=== PATIENT | female | born 1960 | race Caucasian/White ===

== ENCOUNTER 2020-03-09 21:02 | Emergency (ER) | payer BC, SELFPAY ==
[2020-03-09 21:10] VITALS: BP 141/83; PULSE 108; RESP 50; TEMP 36.6; O2SAT 97; BMI 16.2
[2020-03-09 22:04] VITALS: BP 112/64; PULSE 96; RESP 19; TEMP 37.2; O2SAT 97
--- NOTE | 2020-03-09 22:28 | ED.ABDPAIN ---
HPI - Abdominal Pain General Chief Complaint: Abdominal Pain Stated Complaint: abdominal pain Time Seen by Provider: 03/09/20 21:44 Source: patient Mode of arrival: ambulatory History of Present Illness HPI narrative: 59 year old female with left lower quadrant abdominal pain approximately 4-5 days. Symptoms worsening today described as sharp possible radiation to rectum. 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 Denies fevers or chills. Had a normal bowel movement within the past day. No blood in stool mild nausea without vomiting MD elicited complaint: abdominal pain Pertinent past history: diverticulitis Pain Consistency: constant Location: LLQ Severity: mild Quality: sharp Related Data Previous Rx's Medication Instructions Recorded amoxicillin-pot clavulanate 15 ml PO BID 7 Days #210 ml 03/10/20 [Augmentin] ondansetron 4 mg PO Q8H PRN 5 Days #15 tab 03/10/20 tramadol 50 mg PO BID PRN #14 tab 03/10/20 Allergies Allergy/AdvReac Type Severity Reaction Status Date / Time gluten [Gluten] Allergy Severe PT HAS Verified 03/09/20 21:09 CELIAC DISEASE Sulfa (Sulfonamide Allergy Severe LUPUS-LIKE Verified 03/09/20 22:44 Antibiotics) benztropine [Cogentin] Allergy Unknown Rash Verified 03/09/20 21:09 ciprofloxacin [From Cipro] Allergy Unknown TENDONOPATH Verified 03/09/20 22:44 Y/NEUROPATH Y nitrofurantoin [Macrodantin] Allergy Unknown Rash Verified 03/09/20 21:09 promethazine Allergy Unknown Unknown Verified 03/09/20 21:09 From Cipro Allergy Severe TENDONOPATH Uncoded 02/15/20 16:29 Y/NEUROPATH Y From Compazine Allergy Severe DYSTONIA Uncoded 02/15/20 16:29 From Macrodantin Allergy Severe drug Uncoded 02/15/20 16:29 induced hepatitis bees Allergy Unknown Shortness Uncoded 03/09/20 21:09 of Breath gluten Allergy Unknown Diarrhea Uncoded 03/09/20 21:09 Mandelamine Allergy Unknown Rash Uncoded 03/09/20 21:09 QUINOLONES Allergy Unknown Unknown Uncoded 03/09/20 21:09 Review of Systems Review of Systems Yes all other systems are reviewed and are negative Constitutional: Reports as per HPI Eyes: Reports as per HPI Reports system reviewed and no additional complaints, except as documented Cardiovascular: Reports as per HPI and Denies chest pain Respiratory: Reports as per HPI and Denies pain with cough Gastrointestinal: Reports as per HPI, Denies change in stool character, Denies constipation and Reports GI cramping Genitourinary: Reports as per HPI and Denies hematuria Musculoskeletal: Reports no additional musculoskeletal complaints Physical Exam Vital Signs: Vital Signs: Vital Signs Temp Pulse Resp BP Pulse Ox 03/10/20 00:32 87 16 129/76 03/09/20 22:04 98.9 F 96 19 112/64 97 03/09/20 21:10 97.9 F 108 H 50 H 141/83 H 97 Body Mass Index 16.2 vital signs reviewed Appearance: Alert. Oriented X3. No acute distress. Eyes: Pupils equal, round and reactive to light. ENT: Pharynx normal. Neck: Normal inspection. Neck supple. No lymph nodes noted. No crepitus CVS: Normal heart rate and rhythm. Pulses normal. Normal S1 and S2 Respiratory: No respiratory distress. Breath sounds normal. No Wheezing. No rales Abdomen: Soft and mild tenderness to left lower quadrant. No rigidity. No distention. good BS x4 Skin: Skin warm and dry. Normal skin color. Normal skin turgor. Extremities: No lower extremity edema. Neurovascular intact to all extremities. No Lacerations. No Rash Neuro: Oriented X 3. No motor deficit. No sensory deficit. Moving all extermities. No slurred speech. Course Course Course Narrative: differential diagnosis includes diverticulitis, perforation, obstruction, rectal infection MDM - Abdominal Pain MDM Narrative Medical decision making narrative: 59-year-old female diagnosed on CT scan with localize diverticulitis. Patient does not meet sepsis criteria. Tolerating p.o. intake will discharge home Differential Diagnosis Differential diagnosis: Likely abdominal pain, acute appendicitis, bowel perforation and gastritis Lab Data Attestation: I reviewed the patient's lab results. Result diagrams: 03/09/20 22:39 03/09/20 22:39 Labs: Lab Results 03/09/20 03/09/20 03/10/20 Range/Units 22:39 22:39 00:15 WBC 9.9 (4.8-10.8) X10*3/uL RBC 4.08 L (4.20-5.50) X10*6/uL Hgb 11.8 L (12.0-16.0) g/dl Hct 36.4 L (37-47) % MCV 89.2 (80-98) fL MCH 28.9 (27.0-33.0) pg MCHC 32.4 (31.0-35.0) g/dl RDW 12.1 (11.0-16.0) % Plt Count 187 (160-400) X10*3/uL MPV 10.3 (9.4-12.3) fL Immature Gran % (Auto) 0.3 (0.0-0.4) % Neut % (Auto) 80.5 H (45-73) % Lymph % (Auto) 9.8 L (20-40) % [place] % (Auto) 8.9 (2-11) % Eos % (Auto) 0.2 (0-4) % Baso % (Auto) 0.3 (0-2) % Lymph # (Auto) 1.0 L (1.2-4.9) X10*3/uL [place] # (Auto) 0.9 (0.1-1.2) X10*3/uL Eos # (Auto) 0.0 (0.0-0.4) X10*3/uL Baso # (Auto) 0.0 (0.0-0.2) X10*3/uL Abs Immat Gran (auto) 0.03 (0.00-0.03) X10*3/uL Absolute Neuts (auto) 7.9 (2.0-8.3) X10*3/uL Absolute Nucleated RBC 0.000 (0.0-0.012) X10*3/uL Nucleated RBC % (auto) 0.0 (0.0-0.2) /100WBC Sodium 140 (135-145) mmol/L Potassium 4.1 (3.3-5.1) mmol/l Chloride 103 (96-108) mmol/L Carbon Dioxide 26 (22-29) mmol/L Anion Gap 15 (12-20) BUN 17 H (9-16) mg/dL Creatinine 0.73 (0.5-1.4) mg/dL Estim Creat Clear Calc 50.4 Estimated GFR > 60 Random Glucose 97 (60-115) mg/dL Calcium 9.2 (8.4-10.2) mg/dL Total Bilirubin 0.5 (0.0-1.0) mg/dL Direct Bilirubin 0.2 (0.0-0.5) mg/dL AST 16 (5-31) U/L ALT 8 (0-31) U/L Alkaline Phosphatase 53 (39-117) U/L Total Protein 7.0 (6.5-8.0) g/dL Albumin 4.6 (3.5-5.0) g/dL Lipase 16 (8-78) U/L Urine Color YELLOW Urine Appearance CLEAR Urine pH 6.0 (5.0-8.0) Ur Specific [place] 1.025 (1.005-1.025) Urine Protein NEG (NEG-TRACE) MG/DL Urine Glucose (UA) NEG (NEG) MG/DL Urine Ketones 15 (NEG) MG/DL Urine Blood NEG (NEG) Urine Nitrite NEG (NEG) Ur Leukocyte Esterase NEG (NEG) Discharge Plan Discharge Clinical Impression: Diverticulitis Patient Disposition: Home, Self-Care Instructions: Diverticulitis (ED) Additional Instructions: Thank you for visiting the emergency department today. If your symptoms worsen or do not resolve completely please return to the emergency department immediately or call 911. if he have any questions please call your primary care physician Prescriptions: New tramadol 50 mg tablet 50 mg PO BID PRN (Reason: pain) Qty: 14 RF: 0 ondansetron 4 mg tablet,disintegrating 4 mg PO Q8H PRN (Reason: nausea and vomiting) 5 Days Qty: 15 RF: 0 amoxicillin-pot clavulanate [Augmentin] 250-62.5 mg/5 mL suspension for reconstitution 15 ml PO BID 7 Days Qty: 210 RF: 0 PMFSH Past Medical History Medical History Asthma Celiac sprue Diverticulosis Kidney stone Neuropathy Family History Family History (Updated 03/09/20 @ 22:31 by Aaron Bay DO) Other Family history non-contributory Social History Social History Alcohol intake: never Smoking Status: Never smoker Use of substances other than those prescribed or required for medical reasons: No Advance Directives: No Advance Directives Information Provided: Yes
[2020-03-09] MEDS: 0.9 % Sodium Chloride 1,000 ML 999 ML IVCONT (22:47)
[2020-03-09] MEDS: Ketorolac Tromethamine 30 MG/ML VIAL IVPUSH (22:48)
[2020-03-09] MEDS: ondansetron HCL 4 MG/2 ML VIAL IVPUSH (22:48)
[2020-03-09 22:59] LABS: MANUAL DIFF FLAG NO
[2020-03-09 23:00] LABS: Basophils Percent Auto 0.3 % (0-2); Eosinophils Percent Auto 0.2 % (0-4); Hematocrit 36.4 % (37-47); Hemoglobin 11.8 g/dl (12.0-16.0); Imm Gran Abs Auto 0.03 X10*3/uL (0.00-0.03); Imm Gran Pct Auto 0.3 % (0.0-0.4); Lymphocytes Percent Auto 9.8 % (20-40); Mean Corpuscular HGB Conc 32.4 g/dl (31.0-35.0); Mean Corpuscular Hemoglobin 28.9 pg (27.0-33.0); Mean Corpuscular Volume 89.2 fL (80-98); Mean Platelet Volume 10.3 fL (9.4-12.3); Monocytes Absolute Auto 0.9 X10*3/uL (0.1-1.2); Monocytes Percent Auto 8.9 % (2-11); Neutrophils Absolute Auto 7.9 X10*3/uL (2.0-8.3); Neutrophils Percent Auto 80.5 % (45-73); Platelet Count 187 X10*3/uL (160-400); Red Blood Count 4.08 X10*6/uL (4.20-5.50); Red Cell Distribution Width 12.1 % (11.0-16.0); White Blood Count 9.9 X10*3/uL (4.8-10.8)
[2020-03-09 23:23] LABS: Alanine Aminotransferase 8 U/L (0-31); Albumin Level 4.6 g/dL (3.5-5.0); Alkaline Phosphatase 53 U/L (39-117); Anion Gap 15 (12-20); Aspartate Amino Transferase 16 U/L (5-31); Bilirubin Direct 0.2 mg/dL (0.0-0.5); Bilirubin Total 0.5 mg/dL (0.0-1.0); Blood Urea Nitrogen 17 mg/dL (9-16); Calcium 9.2 mg/dL (8.4-10.2); Carbon Dioxide 26 mmol/L (22-29); Chloride 103 mmol/L (96-108); Creatinine Clr Calc Pharmacy 50.4; Estimated Glomerular Filt Rate > 60; Glucose Random 97 mg/dL (60-115); Lipase 16 U/L (8-78); Potassium 4.1 mmol/l (3.3-5.1); Sodium 140 mmol/L (135-145)
--- NOTE | 2020-03-09 23:39 | PC.NURSE ---
Report taken from oLre, this RN resuming care. Plan to obtain UA and CT. Continue to monitor.
--- NOTE | 2020-03-10 00:17 | PC.NURSE ---
Urine sample obtained and sent. Pt ambulating to the bathroom with a joseph/steady gait. Pt requesting Morphine dose changed to 1-2 mg. Provider aware.
[2020-03-10] MEDS: ondansetron HCL 4 MG/2 ML VIAL IVPUSH (00:28)
[2020-03-10] MEDS: Morphine Sulfate 2 MG/ML CARTRIDGE IVPUSH (00:28)
--- NOTE | 2020-03-10 00:30 | CT_ITS ---
EXAMINATION: CT ABDOMEN AND PELVIS WITHOUT CONTRAST CLINICAL INFORMATION: Left lower quadrant pain. Rectal pain. COMPARISON: 07/22/2019 TECHNIQUE: Multidetector volumetric images were obtained from the superior aspect of the liver through the pubic symphysis without intravenous contrast. Sagittal and coronal reformatted images were obtained on the technologist's workstation. Oral contrast: Yes This CT examination was performed using dose optimization techniques as appropriate, variously including the following: *Automated exposure control *Adjustment of mA and/or kV according to patient size (this includes techniques or standardized protocols for targeted exams where dose is matched to indication/reason for exam; i.e. extremities or head) *Use of iterative reconstruction technique DLP: 357 mGy-cm FINDINGS: LUNG BASES: The visualized lung bases are unremarkable. LIVER, GALLBLADDER, AND BILIARY TREE: The liver is normal in size, shape, and attenuation. 0.9 cm cyst in the right lobe of the liver. No focal hepatic lesion or biliary ductal dilatation is present. The gallbladder is unremarkable with no evidence of radiopaque gallstones, gallbladder wall thickening, or obvious pericholecystic inflammatory changes. PANCREAS: Unremarkable. SPLEEN: Unremarkable. ADRENAL GLANDS: Unremarkable. KIDNEYS AND URETERS: The kidneys are normal in size, shape, and attenuation. No hydronephrosis, hydroureter, or calculi seen. No perinephric stranding. BLADDER: Unremarkable. GASTROINTESTINAL TRACT: The stomach is unremarkable. The small bowel is normal in caliber. There is no obstruction. Normal appendix. There is diffuse colonic diverticulosis. Mild wall thickening and inflammation of the sigmoid colon, suggesting mild diverticulitis. No free air or fluid collection. ABDOMINAL WALL: No significant hernia is appreciated. LYMPH NODES: Normal. VASCULAR: Unremarkable. PELVIC VISCERA: The uterus and adnexa are unremarkable. OSSEOUS STRUCTURES: No acute or suspicious osseous abnormality. IMPRESSION: Mild sigmoid diverticulitis. No free air or fluid collection.
[2020-03-10 00:32] VITALS: BP 129/76; PULSE 87; RESP 16
[2020-03-10 00:33] LABS: Glucose Urine UA NEG (NEG); Leukocyte Esterase Urine NEG (NEG); Nitrite Urine NEG (NEG); Specific Gravity - Urine 1.025 (1.005-1.025); Urine Blood NEG (NEG); Urine Ketones 15 MG/DL (NEG); Urine Protein NEG (NEG-TRACE)
--- NOTE | 2020-03-10 00:34 | PC.NURSE ---
Pt medicated per EMAR. VSS, awaiting CT.
[2020-03-10 00:36] LABS: Appearance Urine CLEAR; Color Urine YELLOW; UACC Culture Trigger NO
--- NOTE | 2020-03-10 01:00 | PC.NURSE ---
Pt assisted to the bathroom multiple times, pt reports having to urinate but states she feels unable to empty her bladder completely. Bedside bladder scan revealing 361 ml of urine. Pt again requesting to use the bathroom. aware.
--- NOTE | 2020-03-10 01:22 | PC.NURSE ---
Pt returns from CT, resting in bed, awaiting results. Continue to monitor.
--- NOTE | 2020-03-10 01:57 | PC.NURSE ---
MD at bedside discussing CT results and plan of care.
[2020-03-10] MEDS: Morphine Sulfate 2 MG/ML CARTRIDGE 1 MG IVPUSH (02:24)
[2020-03-10 02:34] VITALS: BP 99/63; PULSE 74; RESP 16
--- NOTE | 2020-03-10 02:46 | PC.NURSE ---
Pt medicated per EMAR. IV removed. VSS. Pt provided with DC paperwork.
== END 2020-03-10 02:47 | disposition home or self-care (01) ==
PROVIDERS: Emergency Provider Emergency Medicine
DX: K57.32 Diverticulitis of large intestine without perforation or abscess without bleeding (principal); R10.32 Left lower quadrant pain; Z79.899 Other long term (current) drug therapy
CPT/HCPCS: 36415; 74177; 80048; 80076; 81003; 83690; 85025; 96361; 96374; 96375; 96376; 99284; J1885; J2270; J2405

== ENCOUNTER → 2020-07-10 09:56 | Outpatient (BNVA) | payer BC, SELFPAY | PROVIDERS: PCP Internal Medicine; Visit Provider Internal Medicine Cardiovascular Disease ==

== ENCOUNTER 2020-07-10 11:10 | Emergency (ER) | payer BC, SELFPAY ==
--- NOTE | 2020-07-10 | ECG_ITS ---
Test Reason : SHORTNESS OF BREATH Blood Pressure : / mmHG Vent. Rate : 085 BPM Atrial Rate : 085 BPM P-R Int : 180 ms QRS Dur : 128 ms QT Int : 388 ms P-R-T Axes : 081 -58 093 degrees QTc Int : 461 ms Normal sinus rhythm Left axis deviation Non-specific intra-ventricular conduction block Cannot rule out Anteroseptal infarct , age undetermined Abnormal ECG When compared with ECG of 22-JUL-2019 09:01, QRS duration has increased T wave amplitude has increased in Inferior leads Referred By: Nilesh Rivera Electronically Signed By:JENNIFER DA SILVA
--- NOTE | ~2020-07-10 | XR_ITS ---
EXAMINATION: XR CHEST CLINICAL INFORMATION: Chest pain, shortness of breath COMPARISON: Chest radiographs 01/25/2019, 09/11/2018 TECHNIQUE: Upright portable AP view of the chest was obtained. FINDINGS: There is mild hyperinflation similar to prior exams. There is no airspace consolidation or groundglass opacity. No pneumothorax or pleural reaction. The costophrenic sulci are clear. The heart is normal in size. The vascularity is normal. The hilar and mediastinal contours are normal. No acute bony abnormality. XR/XR chest 1V IMPRESSION: Unremarkable examination.
[2020-07-10 11:26] VITALS: BP 113/70; PULSE 89; RESP 18; TEMP 36.9; O2SAT 99; BMI 18.8
--- NOTE | 2020-07-10 11:40 | PC.NURSE ---
patient a&ox3, satellite project site monitor nsr 80s-90s, vss, patient talking in full sentences no dyspnea noted upon speaking, provider at bedside, will continue to monitor.
--- NOTE | 2020-07-10 11:49 | P.CONCA_ITS ---
History of Present Illness History of Present Illness Date of Service: 07/10/20 Requesting physician: Beverly Montes Consult reason: other (ACS) Chief complaint: ABNORMAL EKG Narrative: Thank you for asking us to see Ruby in cardiology consult today for acute coronary syndrome. She is a pleasant 59-year-old woman who I saw her this morning in the office cause of recent onset exertional symptoms. Patient has prior history of acid reflux disease and question connective tissue disease unclear and mild hyperlipidemia untreated but no prior vascular events. Her last few months she has been noticing exertional shortness of breath as well as fatigue. She intermittently gets symptoms of heart vázquez intermittently and and did not pay much attention to it. 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 She initially start that this was related to acid reflux disease and/or hiatal hernia. Symptoms then subsided few minutes and she went on to work that day. She did call her primary care physician and was advised to continue to watch her symptoms. She continues to have since then exertional fatigue and shortness of breath. She came in for evaluation today. EKG performed in the office shows new ST depression T-wave inversion in inferior leads. She was therefore referred to the emergency room due to recent symptoms and EKG changes. Concern is for acute coronary syndrome/unstable angina. She is not having any symptoms at rest. She has not had any palpitations, lightheadedness, syncope. Only medicine she takes currently is vitamin D3 Review of Systems Constitutional: Constitutional: Denies anorexia, Denies body ache(s), Denies chills, Denies fatigue, Denies fever(s) and Reports weight loss Eyes: Eyes: Reports no additional eye complaints ENT: Reports system reviewed and no additional complaints, except as documented Cardiovascular: Cardiovascular: Reports chest pain with activity, Denies syncope, Denies rapid heart rate, Denies leg edema, Denies lightheadedness, Denies Loss of Consciousness, Reports radiating jaw, neck or arm pain, Denies palpitations, Reports dyspnea on exertion and Denies orthopnea Respiratory: Respiratory: Denies cough, Denies excessive phlegm production and Reports dyspnea on exertion Gastrointestinal: Gastrointestinal: Reports other (Acid reflux symptoms) Genitourinary: Genitourinary: Reports no additional female genitourinary complaints Neurologic: Reports system reviewed and no additional complaints, except as documented and Denies syncope Psychiatric: Psychiatric: Reports no additional psychiatric complaints Endocrine: Endocrine: Reports no additional endocrine complaints, Denies fatigue and Denies palpitations Hematologic/Lymphatic: Hematologic/Lymphatic: Reports no additional hematologic/lymphatic complaints Allergic/Immunologic: Allergic/Immunologic: Reports no additional allergic/immunologic complaints [facility] Past Medical History Medical History Asthma Celiac sprue Diverticulosis Kidney stone Neuropathy Family History Family History Other Family history non-contributory Surgical History Surgical History Hx of excision of mass (~1999) Social History Social History Alcohol intake: never Smoking Status: Never smoker Use of substances other than those prescribed or required for medical reasons: No Advance Directives: No Advance Directives Information Provided: No Meds Allergies Allergy/AdvReac Type Severity Reaction Status Date / Time gluten [Gluten] Allergy Severe PT HAS Verified 07/10/20 10:25 CELIAC DISEASE Sulfa (Sulfonamide Allergy Severe LUPUS-LIKE Verified 07/10/20 10:25 Antibiotics) benztropine [Cogentin] Allergy Intermediate Rash Verified 07/10/20 11:25 ciprofloxacin [From Cipro] Allergy Intermediate TENDONOPATH Verified 07/10/20 11:25 Y/NEUROPATH Y shellfish derived Allergy Intermediate Hives Verified 07/10/20 11:25 promethazine Allergy Unknown Unknown Verified 07/10/20 10:25 Mandelamine Allergy Intermediate Rash Uncoded 07/10/20 11:25 QUINOLONES Allergy Intermediate Unknown Uncoded 07/10/20 11:25 Home Medications Medication Instructions Recorded Confirmed Last Taken Type cholecalciferol (vitamin D3) 50 50 mcg PO DAILY 07/10/20 Unknown History mcg (2,000 unit) capsule Physical Exam Vital Signs: Vital Signs: Last Vital Signs Temp 98.5 F 07/10/20 11:26 Pulse 89 07/10/20 11:26 Resp 18 07/10/20 11:26 BP 113/70 02/10/21 11:26 Pulse Ox 99 07/10/20 11:26 Body Mass Index 18.8 Const: General: cooperative, comfortable and alert Nutritional Appearance: underweight Orientation/consciousness: patient oriented x3 Limitations: no limitations HENMT: Head: Yes normocephalic and Yes atraumatic Neck: Neck: Yes trachea midline, Yes supple and Yes no JVD Chest: Chest palpation & inspection: normal inspection of the chest Resp: Effort & Inspection: normal respiratory effort Auscultation: clear to auscultation bilaterally Cardio: Jugular venous distension: no JVD Palpation: normal PMI Rate: regular rate Rhythm: regular rhythm Heart sounds: S1 normal heart sound present and S2 normal heart sound present GI: Auscultation: normal bowel sounds Skin: General skin exam: no rashes or lesions noted Neuro: General: patient oriented x3 and no focal motor deficits Extrem: General: Yes no clubbing, cyanosis or edema Psych: Appearance: grossly normal Results ECG Attestation: I personally reviewed and interpreted this ECG as follows: ECG interpretation date: 07/10/20 Interpretation: EKG shows normal sinus rhythm with QS pattern in lead V1 V2 suggestive of septal infarct with ST depression and T-wave inversion in lead 2 3 and AVF consistent with inferior ischemia Assessment and Plan (1) Acute coronary syndrome: Status: Acute Patient's symptoms as well as EKG changes are highly consistent with acute coronary syndrome/unstable angina. She is not having any symptoms at rest. Refer to emergency room for initiation of treatment with IV heparin, aspirin, statins and metoprolol. Will obtain initial blood work including troponins, CBC, basic metabolic profile. Given recent symptom onset, best approach to treatment would be invasive cardiac catheterization. This was discussed with her. The risks, benefits, alternatives 2nd opinion to this management plan was discussed in details. She understands and agrees. Have contacted [facility] for transfer. Will obtain a baseline echocardiogram to assess for LV systolic function wall motion abnormalities. Further treatment based on the findings of cardiac catheterization. Differential diagnosis include acute plaque rupture, spontaneous coronary artery dissection and less likely coronary vaso spasm. If need be PCI we performed the time of cardiac catheterization. Plan was discussed with her and her Dr. Franks who understand and agree.
--- NOTE | 2020-07-10 11:56 | ECG_ITS ---
Test Reason : REPEAT Blood Pressure : / mmHG Vent. Rate : 079 BPM Atrial Rate : 079 BPM P-R Int : 180 ms QRS Dur : 124 ms QT Int : 396 ms P-R-T Axes : 081 -60 091 degrees QTc Int : 454 ms Normal sinus rhythm with sinus arrhythmia Left axis deviation Septal infarct (cited on or before 10-JUL-2020) Abnormal ECG When compared with ECG of 10-JUL-2020 11:23, No significant change was found Referred By: Nilesh Rivera Electronically Signed By:JENNIFER DA SILVA
--- NOTE | 2020-07-10 11:57 | CA_ITS ---
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 Normal LV systolic and diastolic function with possible inferior wall motion abnormality 2. Normal cardiac valvular Doppler 3. Normal RV systolic pressure 4. No pericardial effusion Findings Left Ventricle Normal left ventricular size, thickness, and systolic function. The visually estimated ejection fraction is between 55-60%. Spectral Doppler is indicative of a normal filling pattern. Wall Motion Rest Echo Findings The basal inferior and mid inferior segments are hypokinetic. All other scored wall segments showed normal motion. Right Ventricle Normal right ventricular cavity size and systolic function. Atria Both atria are normal in size. There is no evidence of interatrial shunt. Aortic Valve The aortic valve structure and function is likely normal. There is no aortic valve stenosis. There is no aortic valve regurgitation. Mitral Valve Likely normal mitral valve structure and function. There is trace mitral valve regurgitation. There is no mitral valve stenosis. Pulmonic Valve The pulmonic valve was not well visualized. Tricuspid Valve Likely normal tricuspid valve structure and function. There is trace tricuspid valve regurgitation. The right ventricular systolic pressure is normal. The right ventricular systolic pressure is 20 mmHg. Normal right atrial pressure. There is no evidence of pulmonary hypertension. Great Vessels All visible segments of the aorta are normal in size. The pulmonary artery was not well visualized. Venous The inferior vena cava is normal in size and collapses greater than 50% with inspiration. Pericardium/Pleural There is no evidence of pericardial effusion. Prior Study Comparison No prior study available for comparison. Measurements 2D Linear Measurements IVSd: 0.84 0.6-0.9/0.6-1.0 cm LVIDd: 3.56 3.9-5.3/4.2-5.9 cm LVIDd Index: 2.52 2.4-3.2/2.2-3.1 cm/m2 LVIDs: 2.26 2.0-3.6 cm LVPWd: 0.77 0.7-1.1 cm Ao Root: 3.10 2.1-3.5 cm LA Diam: 2.20 2.7-3.8/3.0-4.0 cm LAIDs Index: 1.56 1.5-2.3 cm/m2 LV Mass: 96.71 67-162/88-224 g LV Mass Index: 68.59 43-95/49-115 g/m2 LVOT Diam: 2.00 3.0+(-)1.3 cm 2D Systolic Function EF 4C: 61.40 >55% EF 2C: 58.50 >55% EF BiP: 59.80 >55% Mitral Valve MV Pk E: 0.61 MV PK A: 0.54 MV Decel Time: 183.00 E/A: 1.10 E'Lateral: 8.03 E'Medial: 6.67 E/E' Med: 9.10 E/E' Lat: 7.50 PHT: 54.00 MVA PHT: 4.07 Decel [place]: 3.31 Aortic Valve AoV Pk Wade: 1.03 AoV Mn Wade: 0.64 AoV VTI: 0.22 AoV Pk Grad: 4.00 Aov Mn Grad: 2.00 CHRISTINE Cont.VTI: 2.34 LVOT LVOT Pk Wade: 0.70 LVOT Mn Wade: 0.47 LVOT VTI: 0.16 LVOT Pk Grad: 2.00 LVOT Mn Grad: 1.00 LVOT Diam: 2.00 LVOT Area: 3.14 Diastolic Function MV Pk E: 0.61 MV Pk A: 0.54 E/A: 1.10 E'Medial: 6.67 E/E' Med: 9.10 E' Laterial: 8.03 E/E' Lat: 7.50 Tricuspid Valve TR Pk Wade: 2.07 TR Pk Grad: 17.00 RA Press: 3.00 RVSP: 20.00 Great Vessels Aorta Ao Root-2D: 3.10 2.0-3.7 cm Pulmonary Valve PV Pk Wade: 0.73 Peak PV Grad: 2.00 Updated in Other Vendor System with Status of Final Jero Espinosa MD electronically signed on 07/10/2020 2:27:07 PM with status of Final
--- NOTE | 2020-07-10 12:05 | ED.GENADULT ---
HPI - General Adult General Chief complaint: General Medical Stated complaint: ABNORMAL EKG Time Seen by Provider: 07/10/20 11:17 Source: patient and other (, operations and maintenance supervisor) Mode of arrival: wheelchair Limitations: no limitations History of Present Illness HPI narrative: 59-year-old female who was referred to the emergency department by her operations and maintenance supervisor, Dr. Espinosa for evaluation chest pain, fatigue, shortness of breath and new, acute changes on the patient's EKG. The patient states that she has been feeling fatigued for approximately 2-3 months. She states that she has been having muscle aches and not feeling well. She has also had a 15 lb weight loss. She states that her doctor determined that she had a vitamin B12 and vitamin D3 deficiency. 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 She states that it was about an 8th of a mile walk but she had to turn around and go back to her car and get her lab coat. She states when she got back to the clinic she had a sudden onset of midsternal chest pressure which was moderate to severe in intensity, she felt short of breath and she felt like her heart was beating fast. She states that the symptoms lasted 1-2 minutes but she did not feel back to normal throughout the day. She states that she felt like she had to in ?catch her breath ?. The patient states that since this incident her symptoms of fatigue and dyspnea on exertion have gotten worse. She was seen today by her operations and maintenance supervisor, who did an EKG on the patient. The patient had inferior ST segment depressions in leads 2, 3 and AVF with Q-waves anteriorly. He was concerned that the ST segment depressions were new and he contacted the emergency department the patient was brought to the emergency department for further evaluation. In the emergency department, the patient is pain free. The patient states that she has been experiencing increased ?reflux ?over the past week and states that she has had these sensations since 2018. Related Data Home Medications Medication Instructions Recorded Confirmed cholecalciferol (vitamin D3) 50 50 mcg PO DAILY 07/10/20 mcg (2,000 unit) capsule Allergies Allergy/AdvReac Type Severity Reaction Status Date / Time gluten [Gluten] Allergy Severe PT HAS Verified 07/10/20 10:25 CELIAC DISEASE Sulfa (Sulfonamide Allergy Severe LUPUS-LIKE Verified 07/10/20 10:25 Antibiotics) benztropine [Cogentin] Allergy Intermediate Rash Verified 07/10/20 11:25 ciprofloxacin [From Cipro] Allergy Intermediate TENDONOPATH Verified 07/10/20 11:25 Y/NEUROPATH Y shellfish derived Allergy Intermediate Hives Verified 07/10/20 11:25 promethazine Allergy Unknown Unknown Verified 07/10/20 10:25 Mandelamine Allergy Intermediate Rash Uncoded 07/10/20 11:25 QUINOLONES Allergy Intermediate Unknown Uncoded 07/10/20 11:25 Review of Systems Review of Systems: Yes all other systems are reviewed and are negative Neurologic: Reports Abnormal speech present [facility] Past Medical History Medical History Asthma Celiac sprue Diverticulosis Kidney stone Neuropathy Surgical History Hx of excision of mass (~1999) Family History Family History Other Family history non-contributory Social History Social History Alcohol intake: never Smoking Status: Never smoker Physical Exam Vital Signs: Vital Signs: Last Vital Signs Temp 98.5 F 07/10/20 11:26 Pulse 79 07/10/20 13:03 Resp 18 07/10/20 13:03 BP 101/64 07/10/20 13:03 Pulse Ox 99 07/10/20 13:03 Body Mass Index 18.8 Const: General: cooperative Nutritional Appearance: thin Orientation/consciousness: oriented to person and oriented to place Limitations: no limitations HENMT: Head: Yes normal to inspection, Yes normocephalic and Yes atraumatic Ears: external ears normal General nose exam: Normal external nose present Face and sinus: Yes normal facial exam Mouth: Normal oral and palatal mucosa present Throat: Yes posterior oropharynx normal Eyes: Periorbital: periorbital findings normal Eyelids: Yes eyelids normal Conjunctivae: conjunctivae normal Sclerae: sclerae normal Corneas: corneas normal Pupils: Equal, round and reactive pupils present Direct Ophthalmoscopy: normal light reflex Neck: Neck: Yes full ROM, Yes no lymphadenopathy, Yes no meningeal signs, Yes trachea midline and Yes supple Chest: Chest palpation & inspection: normal inspection of the chest and normal palpation of entire chest wall Resp: Effort & Inspection: normal respiratory effort and able to speak in complete sentences Auscultation: clear to auscultation bilaterally Cardio: Rate: regular rate Rhythm: regular rhythm Heart sounds: S1 normal heart sound present, S2 normal heart sound present and no murmurs GI: Inspection: Yes normal to inspection Palpation (GI): Soft to palpation, nontender, no guarding, not rigid and No hepatosplenomegaly present : General: Yes no CVA tenderness Back/Spine/Pelvis: Back: no CVA tenderness Cervical Spine: normal cervical lordosis Thoracic/Lumbar Spine: thoracic and lumbar spine normal to inspection Skin: Lesions: no lesions Rashes: other (Bruising to lower extremities, no other bruising noted) Wounds: no wounds Neuro: General: oriented to person, oriented to place and no meningeal signs Cranial nerves: Yes Equal, round and reactive pupils present Cognition (Neuro): normal cognition Speech: Abnormal speech present Motor exam (neuro): 5/5 motor strength present throughout Extrem: General: Yes normal to inspection and Yes full ROM Psych: Appearance: well kempt Mental Status: mental status grossly normal Speech and movement: Normal speech and movement present Affect: normal affect Attitude: cooperative Thought process: Normal thought process present Thought content: Normal thought content present Course Course Course Narrative: 59-year-old female who was referred to the emergency department by operations and maintenance supervisor for evaluation of changes in her EKG, dyspnea on exertion, fatigue and chest pain. The patient's EKG here in the emergency department revealed improvement of the ST segment depressions in the inferior leads. Her physical examination was unremarkable. Laboratory evaluation revealed non elevated D-dimer, undetectable high sensitivity troponin I, normal sedimentation rate. CBC revealed slightly low WBC at 3300 and mild anemia with an H&H of 11.8 and 36.5. The patient's COVID-19 test was negative. Chest x-ray was unremarkable. The patient was treated with atorvastatin 80 mg orally, aspirin 324 mg orally, metoprolol 25 mg orally. She was given a heparin bolus and started on a heparin drip as per protocol. The patient will be transferred to [facility] for further evaluation of her abnormal EKG, chest pain and dyspnea. Medical Decision Making Lab Data Result diagrams: 07/10/20 12:10 07/10/20 14:13 Labs: Lab Results 07/10/20 07/10/20 07/10/20 Range/Units 12:10 12:10 12:10 WBC 3.3 L (4.8-10.8) X10*3/uL RBC 4.12 L (4.20-5.50) X10*6/uL Hgb 11.8 L (12.0-16.0) g/dl Hct 36.5 L (37-47) % MCV 88.6 (80-98) fL MCH 28.6 (27.0-33.0) pg MCHC 32.3 (31.0-35.0) g/dl RDW 12.2 (11.0-16.0) % Plt Count 178 (160-400) X10*3/uL MPV 10.5 (9.4-12.3) fL Immature Gran % (Auto) 0.3 (0.0-0.4) % Neut % (Auto) 59.5 (45-73) % Lymph % (Auto) 30.5 (20-40) % [place] % (Auto) 7.6 (2-11) % Eos % (Auto) 0.9 (0-4) % Baso % (Auto) 1.2 (0-2) % Lymph # (Auto) 1.0 L (1.2-4.9) X10*3/uL [place] # (Auto) 0.3 (0.1-1.2) X10*3/uL Eos # (Auto) 0.0 (0.0-0.4) X10*3/uL Baso # (Auto) 0.0 (0.0-0.2) X10*3/uL Abs Immat Gran (auto) 0.01 (0.00-0.03) X10*3/uL Absolute Neuts (auto) 2.0 (2.0-8.3) X10*3/uL Absolute Nucleated RBC 0.000 (0.0-0.012) X10*3/uL Nucleated RBC % (auto) 0.0 (0.0-0.2) /100WBC ESR 12 (0-20) MM/HR PT 12.1 (10.8-13.0) SEC INR 1.0 (0.9-1.1) APTT 32.8 (24.1-38.0) SEC D-Dimer < 200 NG/ML Sodium (135-145) mmol/L Potassium (3.3-5.1) mmol/L Chloride (96-108) mmol/L Carbon Dioxide (22-29) mmol/L Anion Gap (12-20) BUN (9-16) mg/dL Creatinine (0.5-1.4) mg/dL Estim Creat Clear Calc Estimated GFR Random Glucose (60-115) mg/dL Calcium (8.4-10.2) mg/dL Total Bilirubin (0.0-1.0) mg/dL AST (5-31) U/L ALT (0-31) U/L Alkaline Phosphatase (39-117) U/L Troponin I High Sens (<3.5-17.0) ng/L Total Protein (6.5-8.0) g/dL Albumin (3.5-5.0) g/dL COVID-19 ([facility]) (Negative) COVID-19 Clin Com 07/10/20 07/10/20 07/10/20 Range/Units 12:10 12:10 14:13 WBC (4.8-10.8) X10*3/uL RBC (4.20-5.50) X10*6/uL Hgb (12.0-16.0) g/dl Hct (37-47) % MCV (80-98) fL MCH (27.0-33.0) pg MCHC (31.0-35.0) g/dl RDW (11.0-16.0) % Plt Count (160-400) X10*3/uL MPV (9.4-12.3) fL Immature Gran % (Auto) (0.0-0.4) % Neut % (Auto) (45-73) % Lymph % (Auto) (20-40) % [place] % (Auto) (2-11) % Eos % (Auto) (0-4) % Baso % (Auto) (0-2) % Lymph # (Auto) (1.2-4.9) X10*3/uL [place] # (Auto) (0.1-1.2) X10*3/uL Eos # (Auto) (0.0-0.4) X10*3/uL Baso # (Auto) (0.0-0.2) X10*3/uL Abs Immat Gran (auto) (0.00-0.03) X10*3/uL Absolute Neuts (auto) (2.0-8.3) X10*3/uL Absolute Nucleated RBC (0.0-0.012) X10*3/uL Nucleated RBC % (auto) (0.0-0.2) /100WBC ESR (0-20) MM/HR PT (10.8-13.0) SEC INR (0.9-1.1) APTT (24.1-38.0) SEC D-Dimer NG/ML Sodium 139 (135-145) mmol/L Potassium 4.2 (3.3-5.1) mmol/L Chloride 103 (96-108) mmol/L Carbon Dioxide 27 (22-29) mmol/L Anion Gap 13 (12-20) BUN 15 (9-16) mg/dL Creatinine 0.72 (0.5-1.4) mg/dL Estim Creat Clear Calc 59.4 Estimated GFR > 60 Random Glucose 100 (60-115) mg/dL Calcium 9.0 (8.4-10.2) mg/dL Total Bilirubin 0.4 (0.0-1.0) mg/dL AST 16 (5-31) U/L ALT 8 (0-31) U/L Alkaline Phosphatase 46 (39-117) U/L Troponin I High Sens < 3.5 (<3.5-17.0) ng/L Total Protein 6.3 L (6.5-8.0) g/dL Albumin 3.9 (3.5-5.0) g/dL COVID-19 ([facility]) Negative (Negative) COVID-19 Clin Com See Note Discharge Plan Discharge Clinical Impression: Cardiac ischemia, Abnormal EKG, Dyspnea on exertion Patient Disposition: Xfer [facility] Transfer Details: [facility], cardiac care unit Prescriptions: No Action cholecalciferol (vitamin D3) 50 mcg (2,000 unit) capsule 50 mcg PO DAILY RF: 0 Discharge Date/Time: 07/10/20 15:20
[2020-07-10 12:15] LABS: MANUAL DIFF FLAG NO
[2020-07-10 12:18] LABS: Basophils Percent Auto 1.2 % (0-2); Eosinophils Percent Auto 0.9 % (0-4); Hematocrit 36.5 % (37-47); Hemoglobin 11.8 g/dl (12.0-16.0); Imm Gran Abs Auto 0.01 X10*3/uL (0.00-0.03); Imm Gran Pct Auto 0.3 % (0.0-0.4); Lymphocytes Percent Auto 30.5 % (20-40); Mean Corpuscular HGB Conc 32.3 g/dl (31.0-35.0); Mean Corpuscular Hemoglobin 28.6 pg (27.0-33.0); Mean Corpuscular Volume 88.6 fL (80-98); Mean Platelet Volume 10.5 fL (9.4-12.3); Monocytes Absolute Auto 0.3 X10*3/uL (0.1-1.2); Monocytes Percent Auto 7.6 % (2-11); Neutrophils Percent Auto 59.5 % (45-73); Platelet Count 178 X10*3/uL (160-400); Red Blood Count 4.12 X10*6/uL (4.20-5.50); Red Cell Distribution Width 12.2 % (11.0-16.0); White Blood Count 3.3 X10*3/uL (4.8-10.8)
[2020-07-10 12:24] LABS: Prothrombin Time 12.1 SEC (10.8-13.0)
[2020-07-10 12:27] LABS: D Dimer < 200 NG/ML; Partial Thromboplastin Time 32.8 SEC (24.1-38.0)
[2020-07-10 12:31] VITALS: BP 119/69; PULSE 76
[2020-07-10] MEDS: Metoprolol Succinate ER 25 MG TAB.ER.24H PO (12:31)
[2020-07-10] MEDS: Aspirin 81 MG TAB.CHEW 324 MG PO (12:31)
[2020-07-10] MEDS: LORazepam 2 MG/ML VIAL 0.5 MG IVPUSH (12:32)
[2020-07-10 12:38] LABS: COVID-19 Test Negative (Negative); IDNOW Serial# 9DD0AD1C
[2020-07-10] MEDS: Heparin Sodium,Porcine 5,000 UNIT/ML VIAL 2700 UNIT IVPUSH (12:44)
[2020-07-10 12:54] LABS: Troponin-I High Sensitivity < 3.5 ng/L (<3.5-17.0)
[2020-07-10] MEDS: Heparin Sodium,Porcine/1/2NS 25,000 UNIT/250 ML IV.SOLN 5.44 UNIT IVCONT (12:56)
[2020-07-10 13:03] VITALS: BP 101/64; PULSE 79; RESP 18; O2SAT 99
--- NOTE | 2020-07-10 13:03 | PC.NURSE ---
iv inserted, lab drawn, covid swab performed, ekg performed, pt medicated per order, heparin drip started at 12 per order, cxr performed, vss, will continue to monitor.
[2020-07-10 13:18] LABS: Erythrocyte Sedimentation Rate 12 MM/HR (0-20)
--- NOTE | 2020-07-10 13:49 | PC.NURSE ---
PT GOING TO [facility] 7 ROOM 20. RN TO RN [phone].
[2020-07-10] MEDS: Atorvastatin Calcium 80 MG TABLET PO (14:16)
--- NOTE | 2020-07-10 14:17 | PC.NURSE ---
patient a&ox3, night monitor nsr 70s, vss, pt medicated per order
--- NOTE | 2020-07-10 14:28 | PC.NURSE ---
report called to [facility] [phone] to Deedee
[2020-07-10 15:04] LABS: Alanine Aminotransferase 8 U/L (0-31); Albumin Level 3.9 g/dL (3.5-5.0); Alkaline Phosphatase 46 U/L (39-117); Anion Gap 13 (12-20); Aspartate Amino Transferase 16 U/L (5-31); Bilirubin Total 0.4 mg/dL (0.0-1.0); Blood Urea Nitrogen 15 mg/dL (9-16); Carbon Dioxide 27 mmol/L (22-29); Chloride 103 mmol/L (96-108); Creatinine Clr Calc Pharmacy 59.4; Estimated Glomerular Filt Rate > 60; Glucose Random 100 mg/dL (60-115); Potassium 4.2 mmol/L (3.3-5.1); Sodium 139 mmol/L (135-145); Total Protein 6.3 g/dL (6.5-8.0)
[2020-07-10 15:17] LABS: Lipase 109 U/L (8-78)
== END 2020-07-10 15:20 | disposition short-term general hospital (02) ==
PROVIDERS: Emergency Provider Emergency Medicine Emergency Medical Services; PCP Internal Medicine
DX: I24.9 Acute ischemic heart disease, unspecified (principal); R94.31 Abnormal electrocardiogram [ECG] [EKG]; R06.00 Dyspnea, unspecified; J45.909 Unspecified asthma, uncomplicated; Z20.822 Contact with and (suspected) exposure to COVID-19
CPT/HCPCS: 36415; 71045; 80053; 83690; 84484; 85025; 85379; 85610; 85652; 85730; 87635; 93005; 93306; 96365; 96366; 96375; 99285; J2060

== ENCOUNTER → 2020-07-24 14:53 | Outpatient (BNVA) | payer BC, SELFPAY | PROVIDERS: PCP Internal Medicine; Visit Provider Nurse Practitioner Family | DX: R07.89 Other chest pain (principal); R06.02 Shortness of breath; Z98.890 Other specified postprocedural states | CPT/HCPCS: 93005 ==

== ENCOUNTER → 2020-08-12 11:03 | Outpatient (BNVA) | payer BC, SELFPAY | PROVIDERS: PCP Internal Medicine; Visit Provider Nurse Practitioner Family ==

== ENCOUNTER 2021-06-12 11:20 | Outpatient (REF) | payer BC, SELFPAY ==
--- NOTE | ~2021-06-12 | XR_ITS ---
EXAMINATION: AP STANDING VIEW OF BOTH KNEES WITH LATERAL AND PATELLAR VIEWS OF THE LEFT KNEE CLINICAL INFORMATION: Knee pain. COMPARISON: None TECHNIQUE: AP standing views of both knees and sunrise and lateral views of the left knee. FINDINGS: AP standing view of both knees do not demonstrate any acute bony abnormality. Medial and lateral joint space compartments appear maintained. The patellofemoral joint appears unremarkable. No knee effusion is appreciated. XR/XR knee LT 2V IMPRESSION: No significant bony abnormality appreciated. No left knee effusion.
--- NOTE | ~2021-06-12 | XR_ITS ---
EXAMINATION: AP STANDING VIEW OF BOTH KNEES WITH LATERAL AND PATELLAR VIEWS OF THE LEFT KNEE CLINICAL INFORMATION: Knee pain. COMPARISON: None TECHNIQUE: AP standing views of both knees and sunrise and lateral views of the left knee. FINDINGS: AP standing view of both knees do not demonstrate any acute bony abnormality. Medial and lateral joint space compartments appear maintained. The patellofemoral joint appears unremarkable. No knee effusion is appreciated. XR/XR knee standing BI IMPRESSION: No significant bony abnormality appreciated. No left knee effusion.
== END 2021-06-12 11:21 | disposition home or self-care (01) ==
LOC: HO.HOSX 11:20
PROVIDERS: Visit Provider Orthopaedic Surgery
DX: M70.52 Other bursitis of knee, left knee (principal)
CPT/HCPCS: 73560; 73565

== ENCOUNTER → 2021-07-10 15:07 | Outpatient (BNVA) | payer BC, SELFPAY | PROVIDERS: PCP Internal Medicine; Visit Provider Orthopaedic Surgery ==

== ENCOUNTER → 2021-07-31 12:46 | Outpatient (BNVA) | payer BC, SELFPAY | PROVIDERS: PCP Internal Medicine; Visit Provider Orthopaedic Surgery ==

== ENCOUNTER → 2021-08-19 15:31 | Outpatient (BNVA) | payer BC, SELFPAY | PROVIDERS: PCP Internal Medicine; Visit Provider Physician Assistant | DX: M70.52 Other bursitis of knee, left knee (principal) | CPT/HCPCS: 99212 ==

== ENCOUNTER 2021-08-24 22:44 | Emergency (ER) | payer OTHER, BC, SELFPAY ==
[2021-08-24 22:55] VITALS: BP 145/75; PULSE 84; RESP 16; TEMP 36.9; O2SAT 98; BMI 18.8
--- NOTE | 2021-08-24 23:35 | ED_ITS ---
HPI - Extremity Problem General Chief complaint: Extremity Problem Stated complaint: left leg inj, can't feel feet, chest tightness Time Seen by Provider: 08/24/21 23:35 Source: patient Mode of arrival: ambulatory Limitations: no limitations History of Present Illness HPI Narrative: Patient with history of left knee injury 04/20 wearing the brace x-ray negative for any effusion. Patient wearing be a brace is complaining of increasing leg swelling and numbness in both feet for last 3 days notice ankle swelling patient on standing at this time patient has no swelling of the right ankle but slight swelling of the left ankle patient has a cardiac catheterization last year which was negative no cardiac issues Related Data Home Medications Medication Instructions Recorded Confirmed ibuprofen 300 mg tablet 600 mg PO QID 06/12/21 Previous Rx's Medication Instructions Recorded lorazepam 0.5 mg tablet (Ativan) 0.5 mg PO DAILY PRN 1 Days #1 tab 08/19/21 Allergies Allergy/AdvReac Type Severity Reaction Status Date / Time gluten [Gluten] Allergy Severe PT HAS Verified 08/19/21 15:47 CELIAC DISEASE Sulfa (Sulfonamide Allergy Severe LUPUS-LIKE Verified 08/19/21 15:47 Antibiotics) benztropine [Cogentin] Allergy Intermediate Rash Verified 08/19/21 15:47 ciprofloxacin [From Cipro] Allergy Intermediate TENDONOPATH Verified 08/19/21 15:47 Y/NEUROPATH Y shellfish derived Allergy Intermediate Hives Verified 08/19/21 15:47 promethazine Allergy Unknown Unknown Verified 08/19/21 15:47 Mandelamine Allergy Intermediate Rash Uncoded 07/10/20 11:25 QUINOLONES Allergy Intermediate Unknown Uncoded 07/10/20 11:25 Review of Systems Review of Systems: Yes all other systems are reviewed and are negative PMFSH Past Medical History Medical History Asthma Celiac sprue Diverticulosis Kidney stone Neuropathy Surgical History Hx of excision of mass (~1999) S/P cardiac cath (~07/2020) Family History Family History Other Family history non-contributory Social History Social History Alcohol intake: never Advance Directives: No Advance Directives Information Provided: Yes Patient : No 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 Oriented X3. No acute distress. Anxious ENT: Pharynx normal. Oral Mucosa moist Neck: Normal inspection. Neck supple. CVS: Normal heart rate and rhythm. Pulses normal. Respiratory: No respiratory distress. Equal air entry bilateral, no wheezing/rales/rhonchi Abdomen: Soft and nontender. Bowel sounds are present, no mass palpable, Skin: Skin warm and dry. Normal skin color. Normal skin turgor. Extremities: Trace left ankle edema. No calf tenderness Neuro: Oriented X 3. No motor deficit. No sensory deficit.No cerebellar signs , cranial nerves II-XII intact MDM - Extremity (Nontraumatic) MDM Narrative Medical decision making narrative: Patient with nonspecific paresthesia with dependent leg edema with history of left knee injury likely causes dependent pedal edema lab workup is negative will discharge patient home no calf tenderness Patricia sign negative Lab Data Attestation: I reviewed the patient's lab results. Result diagrams: 08/25/21 00:06 08/25/21 00:06 Labs: Lab Results 08/25/21 08/25/21 08/25/21 Range/Units 00:06 00:06 00:06 WBC 4.4 L (4.8-10.8) X10*3/uL RBC 3.79 L (4.20-5.50) X10*6/uL Hgb 10.8 L (12.0-16.0) g/dl Hct 33.6 L (37.0-47.0) % MCV 88.7 (80.0-98.0) fL MCH 28.5 (27.0-33.0) pg MCHC 32.1 (31.0-35.0) g/dl RDW 12.2 (11.0-16.0) % Plt Count 210 (160-400) X10*3/uL MPV 10.2 (9.4-12.3) fL Immature Gran % (Auto) 0.2 (0.0-0.4) % Neut % (Auto) 59.5 (45-73) % Lymph % (Auto) 25.7 (20-40) % [place] % (Auto) 9.1 (2-11) % Eos % (Auto) 4.6 H (0-4) % Baso % (Auto) 0.9 (0-2) % Lymph # (Auto) 1.1 L (1.2-4.9) X10*3/uL [place] # (Auto) 0.4 (0.1-1.2) X10*3/uL Eos # (Auto) 0.2 (0.0-0.4) X10*3/uL Baso # (Auto) 0.0 (0.0-0.2) X10*3/uL Abs Immat Gran (auto) 0.01 (0.00-0.03) X10*3/uL Absolute Neuts (auto) 2.6 (2.0-8.3) x10*3/uL Absolute Nucleated RBC 0.000 (0.0-0.012) X10*3/uL Nucleated RBC % (auto) 0.0 (0.0-0.2) /100WBC Sodium 142 (135-145) mmol/L Potassium 3.8 (3.3-5.1) mmol/L Chloride 105 (96-108) mmol/L Carbon Dioxide 28 (22-29) mmol/L Anion Gap 13 (12-20) BUN 22 H (9-16) mg/dL Creatinine 0.66 (0.5-1.4) mg/dL Estim Creat Clear Calc 64.1 Estimated GFR > 60 Random Glucose 104 (60-115) mg/dL Calcium 9.6 D (8.4-10.2) mg/dL Magnesium 2.4 (1.6-2.6) mg/dL Total Bilirubin 0.2 (0.0-1.0) mg/dL AST 15 (5-31) U/L ALT 10 (0-31) U/L Alkaline Phosphatase 51 (39-117) U/L B-Natriuretic Peptide 20 (<100) pg/mL Total Protein 6.3 L (6.5-8.0) g/dL Albumin 4.0 (3.5-5.0) g/dL Discharge Plan Discharge Clinical Impression: Lower extremity edema, Paresthesia of both feet Patient Disposition: Home, Self-Care Instructions: Paresthesia (ED), Leg Edema (ED) Additional Instructions: Keep your legs elevated Follow-up with your PCP if symptoms persist Prescriptions: No Action ibuprofen 300 mg tablet 600 mg PO QID 0RF lorazepam [Ativan] 0.5 mg tablet 0.5 mg PO DAILY PRN (Reason: anxiety) 1 Days Qty: 1 0RF
[2021-08-25 00:19] LABS: MANUAL DIFF FLAG NO
[2021-08-25 00:20] LABS: Basophils Percent Auto 0.9 % (0-2); Eosinophils Absolute Auto 0.2 X10*3/uL (0.0-0.4); Eosinophils Percent Auto 4.6 % (0-4); Hematocrit 33.6 % (37.0-47.0); Hemoglobin 10.8 g/dl (12.0-16.0); Imm Gran Abs Auto 0.01 X10*3/uL (0.00-0.03); Imm Gran Pct Auto 0.2 % (0.0-0.4); Lymphocytes Absolute Auto 1.1 X10*3/uL (1.2-4.9); Lymphocytes Percent Auto 25.7 % (20-40); Mean Corpuscular HGB Conc 32.1 g/dl (31.0-35.0); Mean Corpuscular Hemoglobin 28.5 pg (27.0-33.0); Mean Corpuscular Volume 88.7 fL (80.0-98.0); Mean Platelet Volume 10.2 fL (9.4-12.3); Monocytes Absolute Auto 0.4 X10*3/uL (0.1-1.2); Monocytes Percent Auto 9.1 % (2-11); Neutrophils Absolute Auto 2.6 x10*3/uL (2.0-8.3); Neutrophils Percent Auto 59.5 % (45-73); Platelet Count 210 X10*3/uL (160-400); Red Blood Count 3.79 X10*6/uL (4.20-5.50); Red Cell Distribution Width 12.2 % (11.0-16.0); White Blood Count 4.4 X10*3/uL (4.8-10.8)
[2021-08-25 00:40] LABS: Alanine Aminotransferase 10 U/L (0-31); Alkaline Phosphatase 51 U/L (39-117); Anion Gap 13 (12-20); Aspartate Amino Transferase 15 U/L (5-31); B Type Natriuretic Peptide 20 pg/mL (<100); Bilirubin Total 0.2 mg/dL (0.0-1.0); Blood Urea Nitrogen 22 mg/dL (9-16); Calcium 9.6 mg/dL (8.4-10.2); Carbon Dioxide 28 mmol/L (22-29); Chloride 105 mmol/L (96-108); Creatinine Clr Calc Pharmacy 64.1; Estimated Glomerular Filt Rate > 60; Glucose Random 104 mg/dL (60-115); Magnesium 2.4 mg/dL (1.6-2.6); Potassium 3.8 mmol/L (3.3-5.1); Sodium 142 mmol/L (135-145); Total Protein 6.3 g/dL (6.5-8.0)
== END 2021-08-25 01:34 | disposition home or self-care (01) ==
PROVIDERS: Emergency Provider Internal Medicine
DX: R60.0 Localized edema (principal); R06.02 Shortness of breath; R20.2 Paresthesia of skin; Z79.899 Other long term (current) drug therapy
CPT/HCPCS: 36415; 80053; 83735; 83880; 85025; 99284

== ENCOUNTER 2021-08-28 19:28 | Outpatient (REF) | payer BC, SELFPAY ==
--- NOTE | ~2021-08-28 | MR_ITS ---
EXAMINATION: MR KNEE WITHOUT CONTRAST, LEFT CLINICAL INFORMATION: Left knee pain and swelling. Fall 4 months ago. Limited range of motion. Bursitis. COMPARISON: Left knee radiographs dated 06/12/2021. TECHNIQUE: MRI of the knee without contrast was performed using routine sequences on a high-field scanner. FINDINGS: MENISCI: Medial Meniscus: Intact. Lateral Meniscus: Minimal focal inner margin fraying at the posterior aspect of the meniscal body (coronal image 8/26). LIGAMENTS: Cruciate: Intact. Collateral: Intact. EXTENSOR MECHANISM: Intact. ARTICULAR CARTILAGE/BONE: Patellofemoral Compartment: Normal. Medial Compartment: Normal. Lateral Compartment: Normal. JOINT FLUID AND BURSAE: Trace joint effusion and trace Lyons's cyst. Posterior soft tissue edema. There is partially visualized soft tissue edema along the medial fascial plane which extends proximally beyond the imaged [id number]. No organized fluid collection or hematoma formation. MR/MR knee LT wo con IMPRESSION: 1. Minimal focal inner margin fraying at the posterior aspect of the lateral meniscal body. No additional meniscal tear. 2. No ligament injury. 3. Trace joint effusion and trace Lyons's cyst. 4. Partially visualized soft tissue edema along the medial fascial plane extending proximally beyond the imaged [id number] without evidence of organized fluid collection or hematoma formation. Findings could represent the sequela of prior soft tissue trauma.
== END 2021-08-28 19:29 | disposition home or self-care (01) ==
LOC: HO.MRI 19:28
PROVIDERS: Visit Provider Orthopaedic Surgery
DX: M70.52 Other bursitis of knee, left knee (principal)
CPT/HCPCS: 73721

== ENCOUNTER → 2021-09-11 14:59 | Outpatient (BNVA) | payer OTHER, SELFPAY | PROVIDERS: Visit Provider Orthopaedic Surgery | DX: M70.52 Other bursitis of knee, left knee (principal) | CPT/HCPCS: 99212 ==

== ENCOUNTER → 2021-10-30 15:18 | Outpatient (BNVA) | payer OTHER, SELFPAY | PROVIDERS: Visit Provider Orthopaedic Surgery | DX: M70.52 Other bursitis of knee, left knee (principal) | CPT/HCPCS: 99212 ==

== ENCOUNTER → 2021-12-11 15:20 | Outpatient (BNVA) | payer OTHER, BC, SELFPAY | PROVIDERS: Visit Provider Orthopaedic Surgery | DX: M70.52 Other bursitis of knee, left knee (principal); M25.662 Stiffness of left knee, not elsewhere classified | CPT/HCPCS: 99212 ==

== ENCOUNTER → 2022-01-01 15:50 | Outpatient (BNVA) | payer OTHER, BC, SELFPAY | PROVIDERS: Visit Provider Orthopaedic Surgery | DX: M25.662 Stiffness of left knee, not elsewhere classified (principal); M70.52 Other bursitis of knee, left knee | CPT/HCPCS: 99212 ==

== ENCOUNTER 2022-02-03 20:30 | Emergency (ER) | payer BC, SELFPAY ==
--- NOTE | ~2022-02-03 | CT_ITS ---
EXAMINATION: CT ABDOMEN AND PELVIS WITHOUT CONTRAST CLINICAL INFORMATION: Bilateral flank pain and hematuria. COMPARISON: 03/10/2020 TECHNIQUE: Multidetector volumetric imaging was performed from the superior aspect of the liver through the pubic symphysis. Sagittal and coronal reformatted images were obtained on the technologist's workstation. This CT examination was performed using dose optimization techniques as appropriate, variously including the following: *Automated exposure control *Adjustment of mA and/or kV according to patient size (this includes techniques or standardized protocols for targeted exams where dose is matched to indication/reason for exam; i.e. extremities or head) *Use of iterative reconstruction technique DLP: 362 mGy-cm FINDINGS: LUNG BASES: The visualized lung bases are unremarkable. LIVER, GALLBLADDER, AND BILIARY TREE: The liver is normal in size, shape, and attenuation. No biliary ductal dilatation. Redemonstration of a cyst in the right lobe of the liver. This measures 1.5 cm and is seen along the central aspect. The gallbladder is unremarkable with no evidence of radiopaque gallstones, gallbladder wall thickening, or obvious pericholecystic inflammatory changes. PANCREAS: Unremarkable. SPLEEN: Unremarkable. ADRENAL GLANDS: Unremarkable. KIDNEYS AND URETERS: The kidneys are normal in size, shape, and attenuation. No hydronephrosis or hydroureter. There is a right midpole 0.3 cm calculus which is 7 cm from the posterior axillary line. BLADDER: Unremarkable. GASTROINTESTINAL TRACT: The stomach is unremarkable. Normal caliber small bowel. No obstruction. There is diffuse colonic diverticulosis without diverticulitis. No acute colonic wall thickening or inflammatory change. Normal appendix. No free air or free fluid. ABDOMINAL WALL: No significant hernia is appreciated. LYMPH NODES: Normal. VASCULAR: Unremarkable. PELVIC VISCERA: The uterus and adnexa are unremarkable. OSSEOUS STRUCTURES: No acute or suspicious osseous abnormality. CT/CT abdomen pelvis wo IV con IMPRESSION: Nonobstructing right renal calculus. No hydronephrosis. No inflammatory changes of the abdomen or pelvis. Fleischner guidelines were followed.
--- NOTE | ~2022-02-03 | XR_ITS ---
EXAMINATION: XR CHEST CLINICAL INFORMATION: Chest pain COMPARISON: 07/10/2020 TECHNIQUE: Frontal view of the chest was obtained. FINDINGS: The lungs are well expanded. There is no focal consolidation, edema, or effusion. No pneumothorax. The cardiomediastinal silhouette is within normal limits. No acute osseous abnormality. XR/XR chest 1V IMPRESSION: Clear lungs.
--- NOTE | 2022-02-03 21:06 | ECG_ITS ---
Test Reason : SOB Blood Pressure : / mmHG Vent. Rate : 086 BPM Atrial Rate : 086 BPM P-R Int : 206 ms QRS Dur : 090 ms QT Int : 366 ms P-R-T Axes : 083 069 082 degrees QTc Int : 437 ms Normal sinus rhythm Septal infarct , age undetermined Abnormal ECG When compared with ECG of 10-JUL-2020 11:58, QRS axis Shifted right QRS duration has decreased T wave inversion no longer evident in Lateral leads Referred By: Wild Mcgee Electronically Signed By:LAZARA WILCOX
--- NOTE | 2022-02-03 21:06 | ED.GENADULT ---
HPI - General Adult General Chief complaint: General Medical Stated complaint: urinating blood, pain in back Time Seen by Provider: 02/03/22 20:34 Source: patient Mode of arrival: ambulatory Limitations: no limitations History of Present Illness HPI narrative: 61-year-old female past medical history significant for ACS, GERD, diverticulitis presents to the emergency department with complaints of hematuria, bilateral flank pain (L > R) , abdominal pain chest pain, shortness of breath x1 day. Patient reports that earlier this morning she felt diaphoretic and started experiencing some substernal, nonradiating chest discomfort, describes it as a boring pressure, she tells me it has been going on intermittently since earlier today, currently she does report some pressure to the center of her chest. Reports that this is associated with intermittent shortness of breath particularly when taking a deep breath in. Patient also reports that earlier today when she urinated she noticed that her urine was brown, she tells me she went along with her day and later noted that she was urinating bright red blood. She is concerned as she is currently taking NSAIDs for her knee pain. She reports that this is never happened to her before. Patient also has vague complaints of left lower abdominal pain, intermittent since yesterday. Patient denies history of DVT, PE and recurrent UTIs. Patient reports that she is not on any blood thinners at this time. She tells me that although she felt diaphoretic earlier she denied fevers and chills. Patient also denies nausea, vomiting. Related Data Home Medications Medication Instructions Recorded Confirmed ibuprofen 300 mg tablet 600 mg PO QID 06/12/21 Previous Rx's Medication Instructions Recorded lorazepam 0.5 mg tablet (Ativan) 0.5 mg PO DAILY PRN anxiety 1 day 08/19/21 #1 tab methylprednisolone 4 mg tablets in See Rx Instructions PO PER PKG DIR 11/13/21 a dose pack (Medrol (Addison)) #21 ea cefuroxime axetil 250 mg tablet 250 mg PO BID 7 days #14 tabs 02/03/22 prednisone 20 mg tablet 20 mg PO DAILY 5 days #5 tabs 02/03/22 Allergies Allergy/AdvReac Type Severity Reaction Status Date / Time gluten [Gluten] Allergy Severe PT HAS Verified 12/11/21 15:36 CELIAC DISEASE Sulfa (Sulfonamide Allergy Severe LUPUS-LIKE Verified 12/11/21 15:36 Antibiotics) benztropine [Cogentin] Allergy Intermediate Rash Verified 12/11/21 15:36 ciprofloxacin [From Cipro] Allergy Intermediate TENDONOPATH Verified 12/11/21 15:36 Y/NEUROPATH Y shellfish derived Allergy Intermediate Hives Verified 12/11/21 15:36 promethazine Allergy Unknown Unknown Verified 12/11/21 15:36 Mandelamine Allergy Intermediate Rash Uncoded 12/11/21 15:36 QUINOLONES Allergy Intermediate Unknown Uncoded 12/11/21 15:36 Review of Systems Review of Systems: Constitutional : No Weight loss, No Fever, No Chills, + Fatigue, + Malaise ENT/Mouth : No sore throat, No Rhinorrhea Eyes: No Eye Pain, No Swelling, No Redness Cardiovascular : + Chest Pain, + SOB, No Dyspnea on Exertion, No Orthopnea, No Edema, No Palpitations Respiratory : No Cough, No Sputum, No Wheezing Gastrointestinal : No Nausea, No Vomiting, No Diarrhea, No Constipation, + abdominal Pain, No Hematochezia, No Melena Genitourinary : No Dysuria, No Urinary Frequency, + Hematuria, Musculoskeletal : No joint pain, No Myalgias, No Joint Swelling, + flank pain, Skin : No Skin Lesions, No rash Neuro : No Weakness, No Numbness, No Dizziness, No Headache Psych : No Anxiety/Panic, No Depression All other systems reviewed and are negative Yes all other systems are reviewed and are negative [facility] Past Medical History Attestation statement: The following information was validated with the patient. 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 Oriented X3.? No acute distress.? Head: Normocephalic, atraumatic, no step-offs or deformities Eyes: Pupils equal, round and reactive to light.? ENT: Pharynx normal.? Neck: Normal inspection.? Neck supple.? CVS: Normal heart rate and rhythm.? Pulses normal.? Respiratory: No respiratory distress.? Breath sounds normal.? Abdomen: Soft and nontender.? Skin: Skin warm and dry.? Normal skin color.? Normal skin turgor.? Extremities: No lower extremity edema.? No calf ttp. 5/5 strength to bilateral upper and lower extremities Back: No midline tenderness, no C-spine tenderness, full range of motion, + CVA tenderness bilaterally Neuro: Oriented X 3.? No motor deficit.? No sensory deficit. CN 2-12 intact Course Reevaluation(s) Reevaluation #1: CBC with a baseline normocytic anemia. Chemistry with no acute electrolyte abnormalities requiring intervention. D-dimer negative, unlikely that this is PE. Normal coags. CT of the abdomen and pelvis with a right kidney stone measuring 3 mm in the mid pole, nonobstructing. Patient will be given 20 mg of prednisone, Flomax, fluids and morphine. Likely patient passed a stone prior to imaging, now feeling better, BNP, troponin, EKG, chest x-ray, urine pending at this time. Time: 22:28 Reevaluation #2: Troponin negative, EKG pending, patient in normal sinus rhythm on the monitor, I do not suspect ACS. Pending urine, BNP and chest x-ray Time: 22:35 Reevaluation #3: Chest x-ray with no acute findings, BNP within normal limits, urine and repeat CBC pending. Time: 22:51 Additional Reevaluation(s): 2351 Patient's CBC appears to be around baseline, hemodynamically stable. At this time patient will be started on Ceftin for leukocyte esterases in urine, possible bloody cystitis along with the kidney stone w/ in kidney, I suspect patient passed a stone and is having residual hematuria. Advised to return with new or worsening symptoms, outlined these on her discharge. At this time I feel comfortable discharge home with prompt PCP, urology follow-up. In cardiology follow-up is necessary. Comfortable discharge home Medical Decision Making [facility] Narrative Medical decision making narrative: 2100 61 year old female presents w/ CP, SOB, B/L flank pain, sarai heamturia, LLQ abdominal pain, malaise, fatigue X1 day. Physical examination significant for bilateral CVA tenderness, left worse than right. Regular rate and rhythm. Lungs clear. Abdomen soft nontender nondistended. Normoactive bowel sounds. Neuro exam nonfocal. Vital signs are stable. Will rule out ACS, PE. Also rule out obstructing uropathy, UTI, pyelonephritis. Plan at this time is to obtain basic labs, blood cultures, lactic acid, troponin, D-dimer, cardiac monitoring, CT of the abdomen pelvis without contrast. Ideally CT of the abdomen and pelvis would be done with contrast however patient has an allergy to IV contrast. Lab Data Result diagrams: 02/03/22 23:45 02/03/22 21:57 Labs: Lab Results 02/03/22 02/03/22 02/03/22 Range/Units 21:40 21:57 21:57 WBC 5.7 (4.8-10.8) X10*3/uL RBC 4.13 L (4.20-5.50) X10*6/uL Hgb 11.9 L (12.0-16.0) g/dl Hct 36.3 L (37.0-47.0) % MCV 87.9 (80.0-98.0) fL MCH 28.8 (27.0-33.0) pg MCHC 32.8 (31.0-35.0) g/dl RDW 11.9 (11.0-16.0) % Plt Count 244 (160-400) X10*3/uL MPV 9.9 (9.4-12.3) fL Immature Gran % (Auto) 0.2 (0.0-0.4) % Neut % (Auto) 68.7 (45-73) % Lymph % (Auto) 21.0 (20-40) % [place] % (Auto) 7.6 (2-11) % Eos % (Auto) 1.6 (0-4) % Baso % (Auto) 0.9 (0-2) % Lymph # (Auto) 1.2 (1.2-4.9) X10*3/uL [place] # (Auto) 0.4 (0.1-1.2) X10*3/uL Eos # (Auto) 0.1 (0.0-0.4) X10*3/uL Baso # (Auto) 0.1 (0.0-0.2) X10*3/uL Abs Immat Gran (auto) 0.01 (0.00-0.03) X10*3/uL Absolute Neuts (auto) 3.9 (2.0-8.3) x10*3/uL Absolute Nucleated RBC 0.000 (0.0-0.012) X10*3/uL Nucleated RBC % (auto) 0.0 (0.0-0.2) /100WBC PT 11.3 (10.0-13.1) SEC INR 1.0 (0.9-1.1) D-Dimer High Sensitivty NG/ML Sodium (135-145) mmol/L Potassium (3.3-5.1) mmol/L Chloride (96-108) mmol/L Carbon Dioxide (22-29) mmol/L Anion Gap (12-20) BUN (9-16) mg/dL Creatinine (0.5-1.4) mg/dL Estim Creat Clear Calc Estimated GFR Random Glucose (60-115) mg/dL Lactic Acid (0.5-2.0) mmol/L Calcium (8.4-10.2) mg/dL Magnesium (1.6-2.6) mg/dL Total Bilirubin (0.0-1.0) mg/dL AST (5-31) U/L ALT (0-31) U/L Alkaline Phosphatase (39-117) U/L Troponin I High Sens (<3.5-17.0) ng/L B-Natriuretic Peptide (<100) pg/mL Total Protein (6.5-8.0) g/dL Albumin (3.5-5.0) g/dL Beta HCG, Quant mIU/mL Urine Color Urine Appearance Urine pH (5.0-9.0) Ur Specific [place] (1.005-1.025) Urine Protein (Neg-Trace) mg/dL Urine Glucose (UA) (Negative) mg/dL Urine Ketones (Negative) mg/dL Urine Blood (Negative) Urine Nitrite (Negative) Ur Leukocyte Esterase (Negative) Urine RBC (0-2) /HPF Urine WBC (0-5) /HPF Ur Squamous Epith Cells (0-2) /HPF Urine Bacteria (None Seen) Hyaline Casts (0-2) /LPF COVID-19 (ITZ) Negative (Negative) COVID-19 Clin Com See Note 02/03/22 02/03/22 02/03/22 Range/Units 21:57 21:57 21:57 WBC (4.8-10.8) X10*3/uL RBC (4.20-5.50) X10*6/uL Hgb (12.0-16.0) g/dl Hct (37.0-47.0) % MCV (80.0-98.0) fL MCH (27.0-33.0) pg MCHC (31.0-35.0) g/dl RDW (11.0-16.0) % Plt Count (160-400) X10*3/uL MPV (9.4-12.3) fL Immature Gran % (Auto) (0.0-0.4) % Neut % (Auto) (45-73) % Lymph % (Auto) (20-40) % [place] % (Auto) (2-11) % Eos % (Auto) (0-4) % Baso % (Auto) (0-2) % Lymph # (Auto) (1.2-4.9) X10*3/uL [place] # (Auto) (0.1-1.2) X10*3/uL Eos # (Auto) (0.0-0.4) X10*3/uL Baso # (Auto) (0.0-0.2) X10*3/uL Abs Immat Gran (auto) (0.00-0.03) X10*3/uL Absolute Neuts (auto) (2.0-8.3) x10*3/uL Absolute Nucleated RBC (0.0-0.012) X10*3/uL Nucleated RBC % (auto) (0.0-0.2) /100WBC PT (10.0-13.1) SEC INR (0.9-1.1) D-Dimer High Sensitivty 156 NG/ML Sodium 142 (135-145) mmol/L Potassium 3.8 (3.3-5.1) mmol/L Chloride 103 (96-108) mmol/L Carbon Dioxide 27 (22-29) mmol/L Anion Gap 16 (12-20) BUN 29 H (9-16) mg/dL Creatinine 0.77 (0.5-1.4) mg/dL Estim Creat Clear Calc 53.1 Estimated GFR > 60 Random Glucose 118 H (60-115) mg/dL Lactic Acid (0.5-2.0) mmol/L Calcium 9.4 (8.4-10.2) mg/dL Magnesium 2.1 (1.6-2.6) mg/dL Total Bilirubin 0.2 (0.0-1.0) mg/dL AST 21 (5-31) U/L ALT 14 (0-31) U/L Alkaline Phosphatase 56 (39-117) U/L Troponin I High Sens < 3.5 (<3.5-17.0) ng/L B-Natriuretic Peptide 24 (<100) pg/mL Total Protein 6.9 (6.5-8.0) g/dL Albumin 4.3 (3.5-5.0) g/dL Beta HCG, Quant mIU/mL Urine Color Urine Appearance Urine pH (5.0-9.0) Ur Specific [place] (1.005-1.025) Urine Protein (Neg-Trace) mg/dL Urine Glucose (UA) (Negative) mg/dL Urine Ketones (Negative) mg/dL Urine Blood (Negative) Urine Nitrite (Negative) Ur Leukocyte Esterase (Negative) Urine RBC (0-2) /HPF Urine WBC (0-5) /HPF Ur Squamous Epith Cells (0-2) /HPF Urine Bacteria (None Seen) Hyaline Casts (0-2) /LPF COVID-19 (ITZ) (Negative) COVID-19 Clin Com 02/03/22 02/03/22 02/03/22 Range/Units 21:57 21:57 22:35 WBC (4.8-10.8) X10*3/uL RBC (4.20-5.50) X10*6/uL Hgb (12.0-16.0) g/dl Hct (37.0-47.0) % MCV (80.0-98.0) fL MCH (27.0-33.0) pg MCHC (31.0-35.0) g/dl RDW (11.0-16.0) % Plt Count (160-400) X10*3/uL MPV (9.4-12.3) fL Immature Gran % (Auto) (0.0-0.4) % Neut % (Auto) (45-73) % Lymph % (Auto) (20-40) % [place] % (Auto) (2-11) % Eos % (Auto) (0-4) % Baso % (Auto) (0-2) % Lymph # (Auto) (1.2-4.9) X10*3/uL [place] # (Auto) (0.1-1.2) X10*3/uL Eos # (Auto) (0.0-0.4) X10*3/uL Baso # (Auto) (0.0-0.2) X10*3/uL Abs Immat Gran (auto) (0.00-0.03) X10*3/uL Absolute Neuts (auto) (2.0-8.3) x10*3/uL Absolute Nucleated RBC (0.0-0.012) X10*3/uL Nucleated RBC % (auto) (0.0-0.2) /100WBC PT (10.0-13.1) SEC INR (0.9-1.1) D-Dimer High Sensitivty NG/ML Sodium (135-145) mmol/L Potassium (3.3-5.1) mmol/L Chloride (96-108) mmol/L Carbon Dioxide (22-29) mmol/L Anion Gap (12-20) BUN (9-16) mg/dL Creatinine (0.5-1.4) mg/dL Estim Creat Clear Calc Estimated GFR Random Glucose (60-115) mg/dL Lactic Acid 0.7 (0.5-2.0) mmol/L Calcium (8.4-10.2) mg/dL Magnesium (1.6-2.6) mg/dL Total Bilirubin (0.0-1.0) mg/dL AST (5-31) U/L ALT (0-31) U/L Alkaline Phosphatase (39-117) U/L Troponin I High Sens (<3.5-17.0) ng/L B-Natriuretic Peptide (<100) pg/mL Total Protein (6.5-8.0) g/dL Albumin (3.5-5.0) g/dL Beta HCG, Quant 9 mIU/mL Urine Color Yellow Urine Appearance Clear Urine pH 6.0 (5.0-9.0) Ur Specific [place] 1.020 (1.005-1.025) Urine Protein Trace (Neg-Trace) mg/dL Urine Glucose (UA) Negative (Negative) mg/dL Urine Ketones Negative (Negative) mg/dL Urine Blood Large (3+) H (Negative) Urine Nitrite Negative (Negative) Ur Leukocyte Esterase Moderate (2+) H (Negative) Urine RBC >20 H (0-2) /HPF Urine WBC 11-20 H (0-5) /HPF Ur Squamous Epith Cells 3-5 (0-2) /HPF Urine Bacteria None Seen (None Seen) Hyaline Casts 0-2 (0-2) /LPF COVID-19 (ITZ) (Negative) COVID-19 Clin Com 02/03/22 Range/Units 23:45 WBC 5.3 (4.8-10.8) X10*3/uL RBC 3.72 L (4.20-5.50) X10*6/uL Hgb 10.8 L (12.0-16.0) g/dl Hct 33.0 L (37.0-47.0) % MCV 88.7 (80.0-98.0) fL MCH 29.0 (27.0-33.0) pg MCHC 32.7 (31.0-35.0) g/dl RDW 11.9 (11.0-16.0) % Plt Count 211 (160-400) X10*3/uL MPV 9.9 (9.4-12.3) fL Immature Gran % (Auto) 0.2 (0.0-0.4) % Neut % (Auto) 65.2 (45-73) % Lymph % (Auto) 22.0 (20-40) % [place] % (Auto) 9.5 (2-11) % Eos % (Auto) 2.3 (0-4) % Baso % (Auto) 0.8 (0-2) % Lymph # (Auto) 1.2 (1.2-4.9) X10*3/uL [place] # (Auto) 0.5 (0.1-1.2) X10*3/uL Eos # (Auto) 0.1 (0.0-0.4) X10*3/uL Baso # (Auto) 0.0 (0.0-0.2) X10*3/uL Abs Immat Gran (auto) 0.01 (0.00-0.03) X10*3/uL Absolute Neuts (auto) 3.5 (2.0-8.3) x10*3/uL Absolute Nucleated RBC 0.000 (0.0-0.012) X10*3/uL Nucleated RBC % (auto) 0.0 (0.0-0.2) /100WBC PT (10.0-13.1) SEC INR (0.9-1.1) D-Dimer High Sensitivty NG/ML Sodium (135-145) mmol/L Potassium (3.3-5.1) mmol/L Chloride (96-108) mmol/L Carbon Dioxide (22-29) mmol/L Anion Gap (12-20) BUN (9-16) mg/dL Creatinine (0.5-1.4) mg/dL Estim Creat Clear Calc Estimated GFR Random Glucose (60-115) mg/dL Lactic Acid (0.5-2.0) mmol/L Calcium (8.4-10.2) mg/dL Magnesium (1.6-2.6) mg/dL Total Bilirubin (0.0-1.0) mg/dL AST (5-31) U/L ALT (0-31) U/L Alkaline Phosphatase (39-117) U/L Troponin I High Sens (<3.5-17.0) ng/L B-Natriuretic Peptide (<100) pg/mL Total Protein (6.5-8.0) g/dL Albumin (3.5-5.0) g/dL Beta HCG, Quant mIU/mL Urine Color Urine Appearance Urine pH (5.0-9.0) Ur Specific [place] (1.005-1.025) Urine Protein (Neg-Trace) mg/dL Urine Glucose (UA) (Negative) mg/dL Urine Ketones (Negative) mg/dL Urine Blood (Negative) Urine Nitrite (Negative) Ur Leukocyte Esterase (Negative) Urine RBC (0-2) /HPF Urine WBC (0-5) /HPF Ur Squamous Epith Cells (0-2) /HPF Urine Bacteria (None Seen) Hyaline Casts (0-2) /LPF COVID-19 (ITZ) (Negative) COVID-19 Clin Com ECG Data Attestation: I personally reviewed and interpreted this ECG as follows: Prior ECG tracings: available for review Interpretation: Ventricular rate of 86, [place] normal, QRS normal, QT/QTC normal. EKG with normal sinus rhythm no ST elevations or inversions concerning for ischemia. No significant changes when compared to previous. Discharge Plan Discharge Clinical Impression: Kidney stone, Shortness of breath, Chest pain not due to acute coronary syndrome, Hematuria, Cystitis Patient Disposition: Home, Self-Care Instructions: Kidney Stones (ED), Urinary Tract Infection in Women (ED), Hematuria (ED), Chest Wall Pain (ED), Shortness of Breath (ED) Additional Instructions: Take your medications as prescribed. If you were prescribed antibiotics today, it is important that you take your medication to their entirety, do not skip any doses, do not finish them early. Follow-up with your primary care provider this week. Please follow-up with urology as soon as possible. And follow-up with cardiology as necessary. Return to the emergency department with new or worsening symptoms. Such as fevers, chills, chest pain, shortness of breath, nausea, vomiting, dizziness, headache, vision changes, lethargy, worsening hematuria or flank pain In case of emergency call 911 Please take Tylenol as needed for your knee pain, refrain from taking your NSAIDs if possible. FINDINGS: LUNG BASES: The visualized lung bases are unremarkable.? LIVER, GALLBLADDER, AND BILIARY TREE: The liver is normal in size, shape, and attenuation. No biliary ductal dilatation. Redemonstration of a cyst in the right lobe of the liver. This measures 1.5 cm and is seen along the central aspect. The gallbladder is unremarkable with no evidence of radiopaque gallstones, gallbladder wall thickening, or obvious pericholecystic inflammatory changes.? PANCREAS: Unremarkable.? SPLEEN: Unremarkable.? ADRENAL GLANDS: Unremarkable.? KIDNEYS AND URETERS: The kidneys are normal in size, shape, and attenuation. No hydronephrosis or hydroureter. There is a right midpole 0.3 cm calculus which is 7 cm from the posterior axillary line. BLADDER: Unremarkable.? GASTROINTESTINAL TRACT: The stomach is unremarkable. Normal caliber small bowel. No obstruction. There is diffuse colonic diverticulosis without diverticulitis. No acute colonic wall thickening or inflammatory change. Normal appendix. No free air or free fluid.? ABDOMINAL WALL: No significant hernia is appreciated.? LYMPH NODES: Normal. VASCULAR: Unremarkable. PELVIC VISCERA: The uterus and adnexa are unremarkable.? OSSEOUS STRUCTURES: No acute or suspicious osseous abnormality.? CT/CT abdomen pelvis wo IV con IMPRESSION: Nonobstructing right renal calculus. No hydronephrosis. ? No inflammatory changes of the abdomen or pelvis.? ? Fleischner guidelines were followed. Prescriptions: New cefuroxime axetil 250 mg tablet 250 mg PO BID 7 Days Qty: 14 0RF prednisone 20 mg tablet 20 mg PO DAILY 5 Days Qty: 5 0RF No Action methylprednisolone [Medrol (Addison)] 4 mg tablets,dose pack See Rx Instructions PO PER PKG DIR Qty: 21 0RF Rx Instructions: PO PER PKG DIR ibuprofen 300 mg tablet 600 mg PO QID lorazepam [Ativan] 0.5 mg tablet 0.5 mg PO DAILY PRN (Reason: anxiety) 1 Days Qty: 1 0RF Referrals: Tereso Morales MD [Physician] - 2 days Millicent Chapa MD [Primary Care Provider] - 2 days Arun Martinez MD [Physician] - 3 days Stand Alone Forms: Work/School Release
[2022-02-03 21:09] VITALS: BP 118/77; PULSE 95; RESP 18; TEMP 37; O2SAT 100; BMI 18.5
[2022-02-03 22:04] LABS: MANUAL DIFF FLAG NO
[2022-02-03 22:08] LABS: Basophils Absolute Auto 0.1 X10*3/uL (0.0-0.2); Basophils Percent Auto 0.9 % (0-2); Eosinophils Absolute Auto 0.1 X10*3/uL (0.0-0.4); Eosinophils Percent Auto 1.6 % (0-4); Hematocrit 36.3 % (37.0-47.0); Hemoglobin 11.9 g/dl (12.0-16.0); Imm Gran Abs Auto 0.01 X10*3/uL (0.00-0.03); Imm Gran Pct Auto 0.2 % (0.0-0.4); Lymphocytes Absolute Auto 1.2 X10*3/uL (1.2-4.9); Mean Corpuscular HGB Conc 32.8 g/dl (31.0-35.0); Mean Corpuscular Hemoglobin 28.8 pg (27.0-33.0); Mean Corpuscular Volume 87.9 fL (80.0-98.0); Mean Platelet Volume 9.9 fL (9.4-12.3); Monocytes Absolute Auto 0.4 X10*3/uL (0.1-1.2); Monocytes Percent Auto 7.6 % (2-11); Neutrophils Absolute Auto 3.9 x10*3/uL (2.0-8.3); Neutrophils Percent Auto 68.7 % (45-73); Platelet Count 244 X10*3/uL (160-400); Red Blood Count 4.13 X10*6/uL (4.20-5.50); Red Cell Distribution Width 11.9 % (11.0-16.0); White Blood Count 5.7 X10*3/uL (4.8-10.8)
[2022-02-03 22:15] LABS: Prothrombin Time 11.3 SEC (10.0-13.1)
[2022-02-03 22:18] LABS: D Dimer High Sensitivity 156 NG/ML; Lactic Acid 0.7 mmol/L (0.5-2.0)
[2022-02-03 22:22] LABS: COVID-19 Test Negative (Negative)
[2022-02-03 22:23] LABS: Alanine Aminotransferase 14 U/L (0-31); Albumin Level 4.3 g/dL (3.5-5.0); Alkaline Phosphatase 56 U/L (39-117); Anion Gap 16 (12-20); Aspartate Amino Transferase 21 U/L (5-31); Bilirubin Total 0.2 mg/dL (0.0-1.0); Blood Urea Nitrogen 29 mg/dL (9-16); Calcium 9.4 mg/dL (8.4-10.2); Carbon Dioxide 27 mmol/L (22-29); Chloride 103 mmol/L (96-108); Creatinine Clr Calc Pharmacy 53.1; Estimated Glomerular Filt Rate > 60; Glucose Random 118 mg/dL (60-115); Magnesium 2.1 mg/dL (1.6-2.6); Potassium 3.8 mmol/L (3.3-5.1); Sodium 142 mmol/L (135-145); Total Protein 6.9 g/dL (6.5-8.0)
[2022-02-03 22:27] LABS: Troponin-I High Sensitivity < 3.5 ng/L (<3.5-17.0)
[2022-02-03 22:29] LABS: HCG Quantitative 9 mIU/mL
[2022-02-03 22:42] LABS: B Type Natriuretic Peptide 24 pg/mL (<100)
[2022-02-03 22:48] VITALS: RESP 16
[2022-02-03] MEDS: 0.9 % Sodium Chloride 1,000 ML 999 ML IV (22:48)
[2022-02-03] MEDS: predniSONE 20 MG TABLET PO (22:48)
[2022-02-03] MEDS: Morphine Sulfate 2 MG/ML CARTRIDGE IVPUSH (22:48)
[2022-02-03] MEDS: ondansetron HCL 4 MG/2 ML VIAL IVPUSH (22:48)
[2022-02-03] MEDS: Tamsulosin HCL 0.4 MG CAPSULE PO (22:48)
--- NOTE | 2022-02-03 22:54 | PC.NURSE ---
Pt medicated per MAR. IVF hung and infusing without difficulty. Urine collected and sent for processing. Awaiting results and improvement in symptoms. Aware of plan of care.
[2022-02-03 23:13] LABS: Appearance Urine Clear; Color Urine Yellow; Glucose Urine UA Negative (Negative); Leukocyte Esterase Urine Moderate (2+) (Negative); Nitrite Urine Negative (Negative); Urine Blood Large (3+) (Negative); Urine Ketones Negative (Negative); Urine Protein Trace mg/dL (Neg-Trace)
[2022-02-03 23:50] LABS: MANUAL DIFF FLAG NO
[2022-02-03 23:51] LABS: Basophils Percent Auto 0.8 % (0-2); Eosinophils Absolute Auto 0.1 X10*3/uL (0.0-0.4); Eosinophils Percent Auto 2.3 % (0-4); Hemoglobin 10.8 g/dl (12.0-16.0); Imm Gran Abs Auto 0.01 X10*3/uL (0.00-0.03); Imm Gran Pct Auto 0.2 % (0.0-0.4); Lymphocytes Absolute Auto 1.2 X10*3/uL (1.2-4.9); Mean Corpuscular HGB Conc 32.7 g/dl (31.0-35.0); Mean Corpuscular Volume 88.7 fL (80.0-98.0); Mean Platelet Volume 9.9 fL (9.4-12.3); Monocytes Absolute Auto 0.5 X10*3/uL (0.1-1.2); Monocytes Percent Auto 9.5 % (2-11); Neutrophils Absolute Auto 3.5 x10*3/uL (2.0-8.3); Neutrophils Percent Auto 65.2 % (45-73); Platelet Count 211 X10*3/uL (160-400); Red Blood Count 3.72 X10*6/uL (4.20-5.50); Red Cell Distribution Width 11.9 % (11.0-16.0); White Blood Count 5.3 X10*3/uL (4.8-10.8)
[2022-02-04 00:05] LABS: Bacteria Urine None Seen (None Seen); Hyaline Casts Urine 0-2 /LPF (0-2); RBC Urine >20 /HPF (0-2)
[2022-02-10 16:25] LABS: Myoglobin,Serum <30 mcg/L (<=66)
== END 2022-02-04 02:00 | disposition home or self-care (01) ==
PROVIDERS: Internal Medicine; Physician Assistant; Emergency Provider Internal Medicine; PCP Internal Medicine
DX: N20.0 Calculus of kidney (principal); R07.89 Other chest pain; R10.32 Left lower quadrant pain; R31.9 Hematuria, unspecified; R06.02 Shortness of breath; M54.50 Low back pain, unspecified; Z20.822 Contact with and (suspected) exposure to COVID-19; Z79.899 Other long term (current) drug therapy
CPT/HCPCS: 36415; 71045; 74176; 80053; 81001; 82550; 83605; 83735; 83874; 83880; 84484; 84702; 85025; 85379; 85610; 87040; 87086; 87635; 93005; 96374; 96375; 99284; 99285; J2270; J2405

== ENCOUNTER 2022-02-05 17:00 | Outpatient (RCR) | payer OTHER, SELFPAY ==
--- NOTE | 2021-11-13 17:52 | MHC.PT.EP ---
[facility] [place] [facility] [place] Office [address] Tyra Betancourt [address] [phone] F: [phone] F: [phone] F: [phone] F: [phone] Physical Therapy Plan of Care Date of Evaluation: Date of Surgery: N/A Diagnosis: LT knee MCL sprain (RC) Assessment: pt does present w/ some signs and symptoms consistent w/ myofascial pain syndrome vs. CRPS. Will continue to monitor and treat or refer as appropriate. pt presents to physical therapy with pain, decreased range of motion, decreased strength, impaired functional mobility, impaired postural awareness, and gait deviations. pt is a good candidate for skilled PT due to age, potential remediation of impairments, typical disease/condition progression and prognosis, comorbidities, and motivation. pt would benefit from tailored strengthening and stretching exercise program, functional training, gait training, postural re-training, neuromuscular re-education, modalities as needed for pain, equipment safety demonstration. Frequency and Duration: The patient will be seen 2x/wk for 4 wks Short Term Goals: pt will be I w/ HEP to promote self-management of condition. pt will improve L knee flexion by at least 10 degrees to promote improved tolerance for sitting posture and stair navigation. Boxing And Pressing Supervisor Goals: pt will improve L knee extension strength to at least 4+/5 to promote ease in sit to stand transfers. pt will report a statistically significant improvement in self-reported outcome measure, LEFI, to promote return to PLOF. Treatment Plan: Modalities to reduce pain, spasms and effusion. Manual therapy to restore motion and function. Therapeutic exercise to improve strength and flexibility. Neuromuscular re-education for posture and balance. Therapeutic activities to return to functional activities of daily living. Electronically signed by: Myriam Flores PT, DPT Please sign and return to therapist. Thank you for your referral.
--- NOTE | 2022-02-12 13:12 | MHC.PT.DC ---
[facility] [place] [facility] [place] Office [place] [facility] [address] Tyra Betancourt [address] [phone] F: [phone] F: [phone] F: [phone] F: [phone] Physical Therapy Discharge Report Diagnosis: LT knee MCL sprain (RC) Date of Surgery: N/A Date of Evaluation: 11/13/21 Date of Discharge: 02/12/22 Treatments to Date: 24 Cancellations to Date: 4 No Shows to Date: 0 Discharge Status: Improved Function Independent with HEP Discharge Summary: The patient has been consistently reporting less pain, less stiffness, and improved tolerance for ADLs and work-related tasks. She reported a statistically significant improvement in her self-reported outcome measure, LEFI. She stated after a full day of work she noticed no change in her skin color or swelling even without kinesiotape or brace donned. She has weened out of a brace and sleeve and only uses kinesiotape intermittently when her symptoms are flared up. The patient is independent with taping her knee at this time. She continues to complain of persistent swelling to pre-patellar region, tightness localized to quadriceps and ITB, difficulty flexing her knee, as well as medial knee pain. She stated she is able to perform all of her exercises at home as she has access to a recumbent bike and a physioball. The patient also has her own TENS unit with which she is independent. She will have received 12 doses of iontophoresis with dexamethasone by her discharge date. At this time, I cannot recommend any further physical therapy as we have trialed stretching, strengthening, postural activities, cardiovascular activity, TENS, ultrasound, moist heat, cryotherapy, and iontophoresis; all with which the patient is reporting a plateau in her symptoms. She is discharged from this physical therapy plan of care to her home exercise program. Electronically signed by: Myriam Flores PT, DPT Please sign and return to therapist. Thank you for your referral.
== END 2022-02-12 13:12 | disposition home or self-care (01) ==
LOC: HO.PT 17:00
PROVIDERS: Visit Provider Orthopaedic Surgery
DX: S83.412A Sprain of medial collateral ligament of left knee, initial encounter (principal)
CPT/HCPCS: 97014; 97033; 97035; 97110; 97112; 97140; 97162; 97164; 97530

== ENCOUNTER 2022-04-07 16:46 | Outpatient (REF) | payer BC, SELFPAY ==
--- NOTE | ~2022-04-07 | XR_ITS ---
EXAMINATION: XR CHEST CLINICAL INFORMATION: Pneumonia COMPARISON: 02/03/2022 TECHNIQUE: 2 views of the chest were obtained. FINDINGS: Lung volumes are symmetric. There is patchy airspace opacity at the left lung base. Mild haziness is also present at the right lung base. No evidence of pneumothorax or pleural effusion. No overt pulmonary edema. The cardiomediastinal contour is unremarkable. No acute osseous findings are seen. XR/XR chest 2V IMPRESSION: Patchy left basilar airspace opacity suspicious for pneumonia. Mild haziness also noted at the right lung base. Attention on short-term radiographic follow-up is recommended.
== END 2022-04-07 16:47 | disposition home or self-care (01) ==
LOC: HO.XRAY 16:46
PROVIDERS: PCP Internal Medicine; Visit Provider Internal Medicine
DX: J18.9 Pneumonia, unspecified organism (principal); R05.3 Chronic cough; U09.9 Post COVID-19 condition, unspecified
CPT/HCPCS: 71046

== ENCOUNTER 2022-04-17 13:21 | Emergency (ER) | payer BC, SELFPAY ==
[2022-04-17 13:37] VITALS: BP 105/70; PULSE 107; RESP 18; TEMP 36.6; O2SAT 98; BMI 17.4
--- OUTSIDE RECORDS SUMMARY | 2022-04-17 13:57 | XMS_ITS ---
:1960 Author Care Team Providers Name Role Phone Isak Hernandez Primary Care Provider Unavailable Allergies Code Code System Name Reaction Severity Status Onset 997166 RxNorm Bactrim ? ? Active ? 166865 RxNorm Cipro ? ? Active ? 321053 RxNorm Cogentin ? ? Active ? 20340903 RxNorm Compazine ? ? Active ? 20291001 RxNorm Macrodantin ? ? Active ? Quinidine-quinine Analogues ? ? Ac tive ? ([place] Alkaloids) Sulfa (Sulfonamide ? ? Active ? Antibiotics) Medications Name Status Start Date Stop Date ? ? Afluria Quad 4440-8483 (PF) 60 mcg (15 mcg x 4)/0.5 mL Active ? Not available IM syringe albuterol Active ? Not available albuterol sulfate 2.5 mg/3 mL (0.083 %) solution for Active ? Not available nebulization albuterol sulfate HFA 90 mcg/actuation aerosol inhaler Active ? Not available amlodipine 2.5 mg tablet Active ? Not flora ilable amoxicillin 875 mg-potassium clavulanate 125 mg tablet Active ? Not available azithromycin 250 mg tablet Completed ? 12/24 benzonatate 100 mg capsule Active ? Not a vailable clobetasol 0.05 % topical cream Active ? Not available clotrimazole-betamethasone 1 %-0.05 % lotion Active ? Not available Flovent HFA 110 mcg/actuation aerosol inhaler Active ? Not available levalbuterol 1.25 mg/3 mL solution for nebulization Active ? Not available meclizine 25 mg tablet Active ? Not avail able Take 1 tablet 3 times a day by oral route as needed. mupirocin 2 % topical ointment Active ? N ot available ondansetron HCl 4 mg tablet Active ? Not available oxycodone 5 mg tablet Active ? Not availa ble prednisone 10 mg tablet Active ? Not avai lable prednisone 20 mg tablet Active ? Not avai lable ranitidine 15 mg/mL oral syrup Active ? N ot available Problems No Known Problems Notes: CILIAC DISEASE ELEVATED RHEUMAT OID FACTOR- FIGURING OUT CURRENTLY WITH PCP DIFFUSE PERIPHERAL NEUROPATHY, DIFFUSE T ENDINOSIS, BILATERAL ADHESIVE CAPSULITIS (2008) Procedures Date Name Performed by ? 07/26/2018 Electrocardiogram [facility] [place] [address] [place] [phone] (Work Place) 08/28/2018 XR, Ribs, Unilateral, W/ PA Chest [facility] [address] [place] [address] (Work Place) Results Lab Results Date Name Specimen Result Interpretation Description Value Range Status Address ? 08/16/2018 Rapid Strep Group ? Strep negative ? ? [facility] a, Throat [place]lan holley: [address], [place] 08/16/2018 Rapid Flu (A+B) ? Flu negative ? ? [facility] [place] : [address], [place] 07/27/2018 Electrocardiogram ? No observation ? ? ? [facility] recorded. Ruslan holley: [address], [place] 07/26/2018 CBC W/ Auto Diff ? Wbc 7.1 K/mm3 (4. Final [facility] 0-1 Reference 1.0 Laboratori es ) : [address], [place] ? ? ? Rbc 4.22 M/mm3 (4. Final [facility] 20- Reference 5.4 Labor[facility] 0) : [address], m3 [place] ? ? ? Hgb 12.0 gm/dL (11 Final [facility] .7- Reference 15. Labor[facility] 5) : [address], dL [place] ? ? ? Hct 39.2 % (35 Final [facility] .7- Reference 45. Laboratori es 8) : [address], [place] ? ? ? Mcv 92.9 fL (80 Final [facility] .0- Reference 100 Laboratori es .0) : [address], [place] ? ? ? Mch 28.4 pg (27 Final [facility] .0- Reference 34. Laboratori es 0) : [address], [place] ? ? Low Mchc 30.6 g/dL (33 Final [facility] .0- Reference 37. Laboratori es 0) : [address] g[address], L [place] ? ? ? Plt 225 K/mm3 (15 Final [facility] 0-4 Reference 60) Laboratori es K/m : [address], [place] ? ? ? RDW-SD 41.7 fL (<4 Final [facility] 7.0 Reference ) Laboratori es fL : [address], [place] ? ? ? Mpv 11.1 fL (9. Final [facility] 4-1 Reference 2.4 Laboratori es ) : [address], [place] ? ? ? Automated 0.0 #/100 ? Final [place] NRBC WBC's Reference Laboratori es : [address], [place] ? ? ? Abs. NRBC 0.0 K/mm3 ? Final [place] Reference Laboratori es : [address], [place] ? ? ? Neut # 5.2 K/mm3 (1. Final [facility] 3-7 Reference .0) Laboratori es K/m : [address], [place] ? ? ? Lymph # 1.4 K/mm3 (0. Final [facility] 8-3 Reference .1) Laboratori [facility] K/m : [address], [place] ? ? ? Gentry# 0.5 K/mm3 (0. Final [facility] 4-0 Reference .9) Laboratori es K/m : [address], [place] ? ? ? Eo # 0.0 K/mm3 (0. Final [facility] 0-0 Reference .4) Laboratori es K/m : [address], [place] ? ? ? Baso # 0.0 K/mm3 (0. Final [facility] 0-0 Reference .1) Laboratori es K/m : [address], [place] ? ? ? Abs. Imm Gran 0.0 K/mm3 ? Final [facility] Reference Laboratori es : [address], [place] ? ? ? Neut 72.4 % (44 Final [facility] -76 Reference ) % Laboratori es : [address], [place] ? ? ? Lymph 19.5 % (15 Final [facility] -43 Reference ) % Laboratori es : [address], [place] ? ? ? Monocyte 6.6 % (4. Final [facility] 5-1 Reference 0.5 Laboratori es ) % : [address], [place] ? ? ? Eo 0.6 % (0- Final [facility] 6) Reference % Laboratori es : [address], [place] ? ? ? Baso 0.6 % (0- Final [facility] 2) Reference % Laboratori es : [address], [place] ? ? ? Imm Gran 0.3 % (0. Final [facility] 0-0 Reference .6) Laboratori es % : [address], [place] 07/26/2018 BMP, Serum or ? Glucose 94 mg/dL (70 Fi [place]al [place] Plasma -99 Reference ) Laboratori es mg/ : [address], [place] ? ? ? Bun 12 mg/dL (6- Final [facility] 20) Reference mg/ Laboratori es dL : [address], [place] ? ? ? Creatinine 0.7 mg/dL (0. Final [facility] 5-1 Reference .0) Laboratori es mg/ : [address], [place] ? ? ? Sodium 144 mmol/L (13 Final [facility] 3-1 Reference 45) Laboratori es mmo : [address] l/[address], [place] ? ? ? Potassium 3.6 mmol/L (3. Final [facility] 6-5 Reference .2) Laboratori es mmo : [address] l[address], [place] ? ? ? Chloride 103 mmol/L (98 Final [place] -10 Reference 7) Laboratori es mmo : [address] l[address], [place] ? ? ? Bicarbonate 27 mmol/L (22 Final [facility] -29 Reference ) Laborator[facility] mmo : [address] l/[address], [place] ? ? ? Anion Gap 14 (4- Final [facility] 17) Reference Laboratori [facility] : [address], [place] ? ? ? Calcium 9.5 mg/dL (8. Final [facility] 6-1 Reference 0.5 [facility] ) : [address], dL [place] ? ? ? Est GFR Non 96 ? Final [place] mL/min/1.7 Refer ence [place] 3 M2 Laborato mary : [address], [place] ? ? ? Est GFR 111 ? Final [facility] mL/min/1.7 Refer ence [place] 3 M2 Laborato mary : [address], [place] 07/26/2018 T4, Free, Serum ? Free T4 1.31 NG/dL (0. Final [facility] 70- Reference 1.8 Laboratori es 0) : [address], dL [place] 07/26/2018 TSH, Serum or ? Tsh 2.33 (0. Final [facility] Plasma mIU/mL 40- Reference 4.0 Laboratori es 0) : [address], /mL [place] 07/26/2018 Urinalysis, ? Color light ? ? B [facility] Dipstick yellow [place] ow: [address], [place] ? ? ? Appearance clear ? ? [facility] [place] : [address], [place] ? ? ? Glucose Negative ? ? Byst [facility] [place] : [address], [place] ? ? ? Bilirubin Negative ? ? [facility] [place] : [address], [place] ? ? ? Ketone Negative ? ? Byst c [place] : [address], [place] ? ? ? Specific 1.005 ? ? Byst c [place] w: [address], [place] ? ? ? Blood Negative(n ? ? Byst [facility] [place]: ed) [address], [place] ? ? ? Ph 6.0 ? ? [facility] [place] : [address], [place] ? ? ? Urobilinogen 0.2-Normal ? ? [facility] [place] : [address], [place] ? ? ? Protein Negative ? ? Byst [facility] [place] : [address], [place] ? ? ? Nitrite negative ? ? Byst [facility] [place] : [address], [place] ? ? ? Leukocytes Negative ? ? Bys t [facility] [place] : [address], [place] Past Encounters None recorded. Social History Tobacco Smoking Status Never Smoker Vaccine List None recorded. Plan of Care Reminders Provider Appointments None recorded. ? ? Lab None recorded. ? ? Referral None recorded. ? ? Procedures None recorded. ? ? Surgeries None recorded. ? ? Imaging None recorded. ? ? Vitals 12/24/2018 03:05PM Established Patient Blood Pressure 117/76 mm[Hg] 09/16/2018 09:00AM Established Patient Blood Pressure 123/72 mm[Hg] 08/28/2018 04:55PM Established Patient Blood Pressure 112/63 mm[Hg] 08/16/2018 01:25PM Established Patient Blood Pressure 106/72 mm[Hg] 07/26/2018 06:45PM New Patient Blood Pressure 129/81 mm[Hg]
--- OUTSIDE RECORDS SUMMARY | 2022-04-17 13:57 | XMS_ITS ---
:1960 Author Care Team Providers Name Role Phone Michael Malone Primary Care Provider Unavailable Allergies Code Code System Name Reaction Severity Status Onset 2670 RxNorm Codeine ? ? Active ? 762473 RxNorm Cogentin ? ? Active ? 032680 RxNorm Compazine ? ? Active ? 7063003 RxNorm Gluten ? ? Active ? 20291001 RxNorm Macrodantin ? ? Active ? Mandelamine ? ? Active ? 2179534 RxNorm Marcaine ? ? Active ? Quinolones ? ? Active ? Sulfa (Sulfonamide ? ? Active ? Antibiotics) 20281203 RxNorm Voltaren ? ? Active ? Medications Name Status Start Date Stop Date ? ? hydromorphone 2 mg tablet Unknown ? Not av ailable TAKE 1 TABLET TWICE A DAY NEEDED FOR PAIN lorazepam 0.5 mg tablet Active ? Not avai lable TAKE 1 TABLET BY MOUTH EVERY DAY NEEDED methylprednisolone 4 mg tablets in a dose pack Unknown ? Not available FOLLOW INSTRUCTIONS ON PACKAGE ondansetron HCl 4 mg tablet Unknown ? Not available TAKE 1 TABLET BY MOUTH EVERY 6 HOURS NEEDED FOR NAUSEA prednisone 10 mg tablet Active ? Not avai lable FOLLOW ATTACHED INSTRUCTIONS Problems Name Status Onset Date Source ? Shoulder Pain Active ? Encounter Adhesive Capsulitis of Shoulder Active ? Encounter Procedures Date Name Performed by ? 05/31/2012 Orthopaedic Surgery Information not avai lable Notes: L shldr RCR, capsulotomy 10/29/2015 XR, Shoulder Information not avai lable Results Lab Results None recorded. Past Encounters None recorded. Social History Tobacco Smoking Status Current Every Day Smoker Vaccine List None recorded. Plan of Care Reminders Provider Appointments None recorded. ? ? Lab None recorded. ? ? Referral None recorded. ? ? Procedures None recorded. ? ? Surgeries None recorded. ? ? Imaging None recorded. ? ? Vitals None recorded.
--- NOTE | 2022-04-17 14:21 | ED.EXTPRO ---
HPI - Extremity Problem General Chief complaint: Extremity Injury, Lower Stated complaint: L Knee Pain Swelling Over 1 Year Time Seen by Provider: 04/17/22 13:46 Source: patient Mode of arrival: ambulatory Limitations: no limitations History of Present Illness HPI Narrative: Patient is a 61-year-old female who presents to the emergency department for evaluation of acute on chronic left knee pain without any recent trauma/injury. Patient reports a longstanding history with left knee pain since an injury in March of 2021. She has been evaluated by orthopedics under Dr. Montes De Oca as well as [facility]. She had MRI imaging which was overall unremarkable aside from soft tissue swelling. No inguinal Orthopedics was her 2nd opinion who offered her hypoxic a P however she declined, she did receive an intra-articular steroid injection in February of 2022 which she reports actually significantly worsened her pain. She has completed multiple courses of physical therapy. Was using ibuprofen routinely but developed hematuria/rust-colored urine in February of 2022, which lasted about 3-4 weeks so she stopped taking NSAIDs. She was evaluated by her primary care provider last month in regards to this, there was concern of possible autoimmune disorder given the additional joint pains, she was placed on a prednisone taper, reports initial improvement in pain however around the time she was tapering from 30-20 mg she felt as though the pain becoming worse again. Three weeks ago she had an ultrasound of the leg which was negative for DVT. She states her primary care provider's trying to obtain an additional outpatient MRI she is experiencing numbness that goes from the left medial knee down to the great toe. She came today as her pain was severe overnight, spastic feeling, and she expresses concerns for her safety and ability to continue ambulating with her knee like this. Related Data Home Medications Medication Instructions Recorded Confirmed ibuprofen 300 mg tablet 600 mg PO QID 06/12/21 04/07/22 albuterol sulfate 90 mcg/actuation 2 puff inhalation Q4-6H PRN 04/07/22 04/07/22 aerosol inhaler prednisone 10 mg tablet 0 mg PO 04/07/22 04/07/22 Previous Rx's Medication Instructions Recorded lorazepam 0.5 mg tablet (Ativan) 0.5 mg PO DAILY PRN anxiety 1 day 08/19/21 #1 tab budesonide-formoterol HFA 160 1 inh inhalation BID COUGH AND 04/07/22 mcg-4.5 mcg/actuation aerosol WHEEZING 30 days #10.2 grams inhaler (Symbicort) lidocaine 5 % topical ointment 1 appl topical TID PRN pain #30 04/17/22 grams prednisone 20 mg tablet 40 mg PO DAILY #10 tabs 04/17/22 Allergies Allergy/AdvReac Type Severity Reaction Status Date / Time gluten [Gluten] Allergy Severe PT HAS Verified 04/07/22 16:47 CELIAC DISEASE Sulfa (Sulfonamide Allergy Severe LUPUS-LIKE Verified 04/07/22 16:47 Antibiotics) benztropine [Cogentin] Allergy Intermediate Rash Verified 04/07/22 16:47 ciprofloxacin [From Cipro] Allergy Intermediate TENDONOPATH Verified 04/07/22 16:47 Y/NEUROPATH Y shellfish derived Allergy Intermediate Hives Verified 04/07/22 16:47 promethazine Allergy Unknown Unknown Verified 04/07/22 16:47 Mandelamine Allergy Intermediate Rash Uncoded 04/07/22 16:47 QUINOLONES Allergy Intermediate Unknown Uncoded 04/07/22 16:47 Review of Systems Review of Systems: Constitutional: No weight loss, fever, chills.. Skin: No rash or itching. Cardiovascular: No chest pain. No palpitations or pedal edema. Respiratory: No shortness of breath cough Gastrointestinal: No nausea, vomiting or diarrhea. No abdominal pain Genitourinary: No burning micturition. No urinary frequency or incontinence. Musculoskeletal: Left knee pain as noted in HPI Yes all other systems are reviewed and are negative PMFSH Past Medical History Attestation statement: The following information was validated with the patient. 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 No acute distress.?Normal affect. Eyes: Pupils equal, round and reactive to light.? ENT: Pharynx normal.?? Neck: Normal inspection.? Neck supple.?? CVS: Heart sounds normal. Normal heart rate and rhythm.? Pulses normal.?? Respiratory: No respiratory distress.? Lung sounds clear to auscultation bilaterally?? Abdomen: Soft and non-tender. Normoactive bowel sounds. No pulsatile mass.?? Skin: Skin warm and dry.? Normal skin color.? Normal skin turgor.?? Extremities: No lower extremity edema.? No calf ttp. Very small left knee effusion. No rashes, no lesions, no erythema, no warmth. Able to fully extend the knee, able to flex the knee to 90 degrees. Tenderness upon palpation of the medial knee. No laxity upon examination. Neuro: Moves all extremities spontaneously. Sensation intact bilaterally.. No focal neuro deficits. Ambulates with slow antalgic gait Course Course Course Narrative: Patient is a 61-year-old female who presents emergency department for evaluation of acute on chronic left knee pain. History of the pain as noted in HPI. Presenting today for worsening pain, without any recent precipitating injury or fall. At the time of examination she is overall well-appearing, though she does appear uncomfortable. Does not appear consistent with septic joint. No calf tenderness, negative Homans sign, low suspicion for DVT. No prior DVT/PE. There is a very small effusion present upon examination, with medial knee tenderness. No indication for x-ray imaging at this time, low suspicion for fracture dislocation. Her pain has been most improved in the past with physical therapy as well as recent prednisone taper, as discussed it is possible there may be an autoimmune component to this, for which she needs to follow-up with her primary care provider for further evaluation. Will send for prednisone to her pharmacy in addition to topical lidocaine cream. Patient would like to avoid NSAIDs. Offered additional analgesics with tramadol however she declines. Given her expressed concerns for safety she was offered a physical therapy evaluation however she declines wanting to remain in the emergency department for this evaluation, and does not have any interest in short-term rehab. Advised outpatient follow-up with her primary care provider/orthopedic provider, may additionally wear the knee brace she was previously given as this has provided her with some comfort in the past. Discussed worrisome signs and symptoms that she should return back to the emergency department for. Questions were answered, she was discharged home in stable condition. MDM - Extremity (Nontraumatic) Medical Records Attestation: I reviewed the patient's medical records. Discharge Plan Discharge Clinical Impression: Acute knee pain Qualifiers: Laterality: left Qualified Code(s): M25.562 - Pain in left knee Patient Disposition: Home, Self-Care Instructions: Knee Pain (ED), Arthralgia (ED) Additional Instructions: A prescription for prednisone was sent to your pharmacy, in addition to a topical Lidoderm ointment to apply to the left knee 3 times daily as needed for pain. Please contact your primary care provider as well as your orthopedic provider to arrange for outpatient follow-up for further evaluation and treatment within the next week. Your offered a physical therapy evaluation as you expressed concerns about your safety inability to get around however you declined. Please feel free to return to emergency department with any new or worsening symptoms or concerns. Prescriptions: New prednisone 20 mg tablet 40 mg PO DAILY Qty: 10 0RF lidocaine 5 % ointment 1 appl topical TID PRN (Reason: pain) Qty: 30 0RF No Action ibuprofen 300 mg tablet 600 mg PO QID lorazepam [Ativan] 0.5 mg tablet 0.5 mg PO DAILY PRN (Reason: anxiety) 1 Days Qty: 1 0RF prednisone 10 mg tablet 0 mg PO albuterol sulfate 90 mcg/actuation HFA aerosol inhaler 2 puff inhalation Q4-6H PRN budesonide-formoterol [Symbicort] 160-4.5 mcg/actuation HFA aerosol inhaler 1 inh inhalation BID 30 Days Qty: 10.2 1RF Referrals: Millicent Chapa MD [Primary Care Provider] - Discharge Date/Time: 04/17/22 14:26
== END 2022-04-17 14:26 | disposition home or self-care (01) ==
PROVIDERS: Emergency Provider Emergency Medicine Emergency Medical Services; PCP Internal Medicine
DX: M25.562 Pain in left knee (principal); Z79.899 Other long term (current) drug therapy
CPT/HCPCS: 99282; 99283

== ENCOUNTER 2022-04-20 21:18 | Emergency (ER) | payer BC, SELFPAY ==
--- NOTE | ~2022-04-20 | XR_ITS ---
EXAMINATION: BILATERAL KNEES CLINICAL INFORMATION: Bilateral knee pain COMPARISON: Knee radiographs 06/12/2021, left knee MRI 08/29/2019 TECHNIQUE: 2 views FINDINGS: Left: No significant bone joint or soft tissue abnormality is seen. No compartmental narrowing or chondrocalcinosis is present. No joint effusion Right: No significant bone joint or soft tissue abnormality is seen. No compartmental narrowing or chondrocalcinosis is present. No joint effusion XR/XR knee RT 2V IMPRESSION: Unremarkable examination.
--- NOTE | ~2022-04-20 | XR_ITS ---
EXAMINATION: BILATERAL KNEES CLINICAL INFORMATION: Bilateral knee pain COMPARISON: Knee radiographs 06/12/2021, left knee MRI 08/29/2019 TECHNIQUE: 2 views FINDINGS: Left: No significant bone joint or soft tissue abnormality is seen. No compartmental narrowing or chondrocalcinosis is present. No joint effusion Right: No significant bone joint or soft tissue abnormality is seen. No compartmental narrowing or chondrocalcinosis is present. No joint effusion XR/XR knee LT 2V IMPRESSION: Unremarkable examination.
[2022-04-20 21:30] VITALS: BP 145/80; PULSE 96; RESP 16; TEMP 36.6; O2SAT 98; BMI 17.4
--- NOTE | 2022-04-20 21:55 | ED.EXTPRO ---
HPI - Extremity Problem General Chief complaint: Extremity Problem Stated complaint: bi lateral knee pain Time Seen by Provider: 04/20/22 21:46 Source: patient Mode of arrival: ambulatory Limitations: no limitations History of Present Illness HPI Narrative: Patient with chronic bilateral knee pain seen by Orthopedics for the left knee pain had slight meniscal strain now complaining of pain in the right knee also with morning stiffness and progressing of the pain during the day time. No recent trauma patient was on prednisone for the COVID and felt much better she is off prednisone and pain is coming back again no other joints involved no history of gout Related Data Home Medications Medication Instructions Recorded Confirmed ibuprofen 300 mg tablet 600 mg PO QID 06/12/21 04/07/22 albuterol sulfate 90 mcg/actuation 2 puff inhalation Q4-6H PRN 04/07/22 04/07/22 aerosol inhaler prednisone 10 mg tablet 0 mg PO 04/07/22 04/07/22 Previous Rx's Medication Instructions Recorded lorazepam 0.5 mg tablet (Ativan) 0.5 mg PO DAILY PRN anxiety 1 day 08/19/21 #1 tab budesonide-formoterol HFA 160 1 inh inhalation BID COUGH AND 04/07/22 mcg-4.5 mcg/actuation aerosol WHEEZING 30 days #10.2 grams inhaler (Symbicort) lidocaine 5 % topical ointment 1 appl topical TID PRN pain #30 04/17/22 grams prednisone 20 mg tablet 40 mg PO DAILY #10 tabs 04/17/22 prednisone 10 mg tablet 10 mg PO DAILY #10 tabs 04/20/22 Allergies Allergy/AdvReac Type Severity Reaction Status Date / Time gluten [Gluten] Allergy Severe PT HAS Verified 04/07/22 16:47 CELIAC DISEASE Sulfa (Sulfonamide Allergy Severe LUPUS-LIKE Verified 04/07/22 16:47 Antibiotics) benztropine [Cogentin] Allergy Intermediate Rash Verified 04/07/22 16:47 ciprofloxacin [From Cipro] Allergy Intermediate TENDONOPATH Verified 04/07/22 16:47 Y/NEUROPATH Y shellfish derived Allergy Intermediate Hives Verified 04/07/22 16:47 promethazine Allergy Unknown Unknown Verified 04/07/22 16:47 Mandelamine Allergy Intermediate Rash Uncoded 04/07/22 16:47 QUINOLONES Allergy Intermediate Unknown Uncoded 04/07/22 16:47 Review of Systems Review of Systems: Yes all other systems are reviewed and are negative [facility] Past Medical History Medical History Asthma Celiac sprue Cough Diverticulosis Kidney stone Neuropathy Pneumonia Post-COVID chronic cough Surgical History Hx of excision of mass (~1999) S/P cardiac cath (~07/2020) Family History Family History Other Family history non-contributory Social History Social History Alcohol intake: never Patient Tobacco Use Status: Never used Tobacco Advance Directives: No Advance Directives Information Provided: Yes 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 Oriented X3. No acute distress. Thin 41 kg patient Eyes: Normal conjunctiva ENT: Pharynx normal. Oral Mucosa moist Neck: Normal inspection. Neck supple. CVS: Normal heart rate and rhythm. Pulses normal. Respiratory: No respiratory distress. Equal air entry bilateral, Abdomen: Soft and nontender. Skin: Skin warm and dry. Normal skin color. Normal skin turgor. Extremities: No lower extremity edema. No calf tenderness bilateral knee with slight effusion McBurney's sign negative anterior drawer sign negative good range of movement no joint line tenderness Neuro: Oriented X 3. No motor deficit. 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 Lab Data Result diagrams: 04/20/22 22:37 04/20/22 22:37 Labs: Lab Results 04/20/22 04/20/22 04/20/22 Range/Units 22:37 22:37 22:37 WBC 5.7 (4.8-10.8) X10*3/uL RBC 4.23 (4.20-5.50) X10*6/uL Hgb 12.1 (12.0-16.0) g/dl Hct 37.8 (37.0-47.0) % MCV 89.4 (80.0-98.0) fL MCH 28.6 (27.0-33.0) pg MCHC 32.0 (31.0-35.0) g/dl RDW 12.8 (11.0-16.0) % Plt Count 256 (160-400) X10*3/uL MPV 9.0 L (9.4-12.3) fL Immature Gran % (Auto) 0.5 H (0.0-0.4) % Neut % (Auto) 73.5 H (45-73) % Lymph % (Auto) 15.7 L (20-40) % [place] % (Auto) 7.2 (2-11) % Eos % (Auto) 2.8 (0-4) % Baso % (Auto) 0.3 (0-2) % Lymph # (Auto) 0.9 L (1.2-4.9) X10*3/uL [place] # (Auto) 0.4 (0.1-1.2) X10*3/uL Eos # (Auto) 0.2 (0.0-0.4) X10*3/uL Baso # (Auto) 0.0 (0.0-0.2) X10*3/uL Abs Immat Gran (auto) 0.03 (0.00-0.03) X10*3/uL Absolute Neuts (auto) 4.2 (2.0-8.3) x10*3/uL Absolute Nucleated RBC 0.000 (0.0-0.012) X10*3/uL Nucleated RBC % (auto) 0.0 (0.0-0.2) /100WBC ESR 18 (0-20) MM/HR Sodium 142 (135-145) mmol/L Potassium 4.0 (3.3-5.1) mmol/L Chloride 107 (96-108) mmol/L Carbon Dioxide 26 (22-29) mmol/L Anion Gap 13 (12-20) BUN 25 H (9-16) mg/dL Creatinine 0.61 (0.5-1.4) mg/dL Estim Creat Clear Calc 63.0 Estimated GFR > 60 Random Glucose 94 (60-115) mg/dL Calcium 9.5 (8.4-10.2) mg/dL Total Bilirubin 0.3 (0.0-1.0) mg/dL AST 17 (5-31) U/L ALT 16 (0-31) U/L Alkaline Phosphatase 54 (39-117) U/L C-Reactive Protein 0.10 (< or = 0.50) mg/dL Total Protein 6.6 (6.5-8.0) g/dL Albumin 4.1 (3.5-5.0) g/dL Rheumatoid Factor 25.7 H (<15.0) IU/mL Discharge Plan Discharge Clinical Impression: Knee osteoarthritis Patient Disposition: Home, Self-Care Instructions: Osteoarthritis (ED) Additional Instructions: Continue pain medication as given by her PCP You may take prednisone 10 mg daily for 7 days f/u by 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 Prescriptions: New prednisone 10 mg tablet 10 mg PO DAILY Qty: 10 0RF No Action prednisone 20 mg tablet 40 mg PO DAILY Qty: 10 0RF lidocaine 5 % ointment 1 appl topical TID PRN (Reason: pain) Qty: 30 0RF ibuprofen 300 mg tablet 600 mg PO QID lorazepam [Ativan] 0.5 mg tablet 0.5 mg PO DAILY PRN (Reason: anxiety) 1 Days Qty: 1 0RF prednisone 10 mg tablet 0 mg PO albuterol sulfate 90 mcg/actuation HFA aerosol inhaler 2 puff inhalation Q4-6H PRN budesonide-formoterol [Symbicort] 160-4.5 mcg/actuation HFA aerosol inhaler 1 inh inhalation BID 30 Days Qty: 10.2 1RF Interventions: ED Discharge Assessment Last Done: 04/20/22 23:12 Discharge Date/Time: 04/20/22 23:13
--- OUTSIDE RECORDS SUMMARY | 2022-04-20 22:29 | XMS_ITS ---
:1960 Author Care Team Providers Name Role Phone Isak Hernandez Primary Care Provider Unavailable Allergies Code Code System Name Reaction Severity Status Onset 933271 RxNorm Bactrim ? ? Active ? 623189 RxNorm Cipro ? ? Active ? 718078 RxNorm Cogentin ? ? Active ? 20340903 RxNorm Compazine ? ? Active ? 20291001 RxNorm Macrodantin ? ? Active ? Quinidine-quinine Analogues ? ? Ac tive ? ([place] Alkaloids) Sulfa (Sulfonamide ? ? Active ? Antibiotics) Medications Name Status Start Date Stop Date ? ? Afluria Quad 3248-0877 (PF) 60 mcg (15 mcg x 4)/0.5 [...] Name Performed by ? 07/26/2018 Electrocardiogram [facility] [place] [address] [place] [address] (Work Place) 08/28/2018 XR, Ribs, Unilateral, W/ PA Chest [facility] [address] [place] [address] (Work Place) Results Lab Results Date Name Specimen Result Interpretation Description Value Range Status Address ? 08/16/2018 Rapid Strep Group ? Strep negative ? ? [facility] a, Throat [place]: [address], [place] 08/16/2018 Rapid Flu (A+B) ? Flu negative ? ? [facility] [place] : [address], [place] 07/27/2018 Electrocardiogram ? No observation ? ? ? [facility] recorded. [place]lan holley: [address], [place] 07/26/2018 CBC W/ Auto Diff [...] ? ? Automated 0.0 #/100 ? Final [place] [facility] NRBC WBC's Reference Laboratori es : [address], [place] ? ? ? Abs. NRBC 0.0 K/mm3 ? Final [place] [facility] Reference Laboratori es : [address], [place] ? ? ? [place]# 0.5 K/mm3 (0. Final [facility] e 4-0 [...] ? Glucose 94 mg/dL (70 Fi nal [place] Plasma -99 Reference ) Laboratori es mg/ [...] ? ? Chloride 103 mmol/L (98 Final [place] -10 Reference 7) Laboratori es mmo [...] ? Final [place] mL/min/1.7 Refer ence [place] 3 M2 Laborato mary : [address], [place] ? ? ? Est GFR 111 ? Final [facility] mL/min/1.7 Refer ence [place] 3 M2 Laborato mary : [address], [place] 07/26/2018 T4, Free, Serum ? Free T4 1.31 NG/dL (0. Final [facility] 70- Reference 1.8 Laboratori es 0) : [address], dL [place] 07/26/2018 TSH, Serum or ? Tsh 2.33 (0. Final [facility] Plasma mIU/mL 40- Reference 4.0 Laboratori es 0) : [address], /mL [place] 07/26/2018 Urinalysis, ? Color light ? ? B [facility] Dipstick yellow [place] ow: [address], [place] ? ? ? Appearance clear ? ? [facility] [place] : [address], [place] ? ? ? Glucose Negative ? ? Byst U cc [place] : [address], [place] ? ? ? Bilirubin Negative ? ? [facility] [place] : [address], [place] ? ? ? Ketone Negative ? ? Byst c [place] : [address], [place] ? ? ? Specific 1.005 ? ? Byst c [place] w: [address], [place] ? ? ? Blood Negative(n ? ? Byst U [place]: ed) [address], [place] ? ? ? Ph 6.0 ? ? [facility] [place] : [address], [place] ? ? ? Urobilinogen 0.2-Normal ? ? [facility] [place] : [address], [place] ? ? ? Protein Negative ? ? Byst U cc [place] : [address], [place] ? ? ? Nitrite negative ? ? Byst U cc [place] : [address], [place] ? ? ? Leukocytes Negative ? ? [facility] [place] : [address], [place] Past Encounters None recorded. Social [...]
--- OUTSIDE RECORDS SUMMARY | 2022-04-20 22:29 | XMS_ITS ---
:1960 Author Care Team Providers Name Role Phone Michael Malone Primary Care Provider Unavailable Allergies Code Code System Name Reaction Severity Status Onset 2670 RxNorm Codeine ? ? Active ? 025681 RxNorm Cogentin ? ? Active ? 874202 RxNorm Compazine ? ? Active ? 0325086 RxNorm Gluten ? ? Active ? 20291001 RxNorm Macrodantin ? ? Active ? Mandelamine ? ? Active ? 0997377 RxNorm Marcaine ? ? Active ? Quinolones [...]
[2022-04-20 22:45] LABS: MANUAL DIFF FLAG NO
[2022-04-20 22:47] LABS: Basophils Percent Auto 0.3 % (0-2); Eosinophils Absolute Auto 0.2 X10*3/uL (0.0-0.4); Eosinophils Percent Auto 2.8 % (0-4); Hematocrit 37.8 % (37.0-47.0); Hemoglobin 12.1 g/dl (12.0-16.0); Imm Gran Abs Auto 0.03 X10*3/uL (0.00-0.03); Imm Gran Pct Auto 0.5 % (0.0-0.4); Lymphocytes Absolute Auto 0.9 X10*3/uL (1.2-4.9); Lymphocytes Percent Auto 15.7 % (20-40); Mean Corpuscular Hemoglobin 28.6 pg (27.0-33.0); Mean Corpuscular Volume 89.4 fL (80.0-98.0); Monocytes Absolute Auto 0.4 X10*3/uL (0.1-1.2); Monocytes Percent Auto 7.2 % (2-11); Neutrophils Absolute Auto 4.2 x10*3/uL (2.0-8.3); Neutrophils Percent Auto 73.5 % (45-73); Platelet Count 256 X10*3/uL (160-400); Red Blood Count 4.23 X10*6/uL (4.20-5.50); Red Cell Distribution Width 12.8 % (11.0-16.0); White Blood Count 5.7 X10*3/uL (4.8-10.8)
[2022-04-20 23:05] LABS: Alanine Aminotransferase 16 U/L (0-31); Albumin Level 4.1 g/dL (3.5-5.0); Alkaline Phosphatase 54 U/L (39-117); Anion Gap 13 (12-20); Aspartate Amino Transferase 17 U/L (5-31); Bilirubin Total 0.3 mg/dL (0.0-1.0); Blood Urea Nitrogen 25 mg/dL (9-16); Calcium 9.5 mg/dL (8.4-10.2); Carbon Dioxide 26 mmol/L (22-29); Chloride 107 mmol/L (96-108); Estimated Glomerular Filt Rate > 60; Glucose Random 94 mg/dL (60-115); Rheumatoid Factor 25.7 IU/mL (<15.0); Sodium 142 mmol/L (135-145); Total Protein 6.6 g/dL (6.5-8.0)
[2022-04-20 23:24] LABS: Erythrocyte Sedimentation Rate 18 MM/HR (0-20)
[2022-04-27 12:07] LABS: Anti Nuclear Antibody Screen NEGATIVE (NEGATIVE)
[2022-04-29 03:31] LABS: A. Phagocytophilum Ab IgG <1:64 (<1:64); A. Phagocytophilum Ab IgM <1:20 (<1:20); E. Chaffeensis Ab IgG <1:64 (<1:64); E. Chaffeensis Ab IgM <1:20 (<1:20)
== END 2022-04-20 23:13 | disposition home or self-care (01) ==
PROVIDERS: Emergency Provider Internal Medicine; PCP Internal Medicine
DX: M17.0 Bilateral primary osteoarthritis of knee (principal); M25.562 Pain in left knee; M25.561 Pain in right knee
CPT/HCPCS: 36415; 73560; 80053; 85025; 85652; 86038; 86039; 86140; 86431; 86666; 99282; 99283

== ENCOUNTER 2022-04-22 11:54 | Outpatient (REF) | payer BC, SELFPAY ==
[2022-04-22 12:43] LABS: Appearance Urine Clear; Color Urine Yellow; Glucose Urine UA Negative (Negative); Leukocyte Esterase Urine Trace (Negative); Nitrite Urine Negative (Negative); PH 5.5 (5.0-9.0); Specific Gravity - Urine 1.015 (1.005-1.025); UMIC TRIGGER UA YES; Urine Blood Negative (Negative); Urine Ketones Negative (Negative); Urine Protein Negative (Neg-Trace)
[2022-04-22 12:46] LABS: Bacteria Urine None Seen (None Seen); Hyaline Casts Urine 0-2 /LPF (0-2); RBC Urine 0-2 /HPF (0-2); Squamous Epithelial Cell Urine 0-2 /HPF (0-2); WBC Urine 0-5 /HPF (0-5)
[2022-04-22 13:22] LABS: Creatinine Urine 71.38 mg/dL; Protein/Creatinine Ratio, Ur 0.15 (<0.2); Total Protein Urine Random 11 mg/dL (<12)
[2022-04-24 17:07] LABS: Lyme Abs Screen <0.90 index
[2022-04-27 14:46] LABS: Cyclic Citrullinated Peptide <16 UNITS
== END 2022-04-22 11:55 | disposition home or self-care (01) ==
LOC: HO.10HDL 11:54
PROVIDERS: Visit Provider Internal Medicine Rheumatology
DX: M25.561 Pain in right knee (principal); M25.562 Pain in left knee; R76.8 Other specified abnormal immunological findings in serum
CPT/HCPCS: 36415; 81001; 84156; 86200; 86617; 86618

== ENCOUNTER 2022-04-22 20:19 | Emergency (ER) | payer BC, SELFPAY ==
[2022-04-22 20:22] VITALS: BP 126/84; PULSE 116; RESP 20; TEMP 36.6; O2SAT 98; BMI 17.2
--- OUTSIDE RECORDS SUMMARY | 2022-04-22 21:10 | XMS_ITS ---
:1960 Author Care Team Providers Name Role Phone Isak Hernandez Primary Care Provider Unavailable Allergies Code Code System Name Reaction Severity Status Onset 461221 RxNorm Bactrim ? ? Active ? 707604 RxNorm Cipro ? ? Active ? 640242 RxNorm Cogentin ? ? Active ? 20340903 RxNorm Compazine ? ? Active ? 20291001 RxNorm Macrodantin ? ? Active ? Quinidine-quinine Analogues ? ? Ac tive ? ([place] Alkaloids) Sulfa (Sulfonamide ? ? Active ? Antibiotics) Medications Name Status Start Date Stop Date ? ? Afluria Quad 0824-3128 (PF) 60 mcg (15 mcg x 4)/0.5 [...] Name Performed by ? 07/26/2018 Electrocardiogram [facility] [place] [address] [place] [phone] (Work Place) 08/28/2018 XR, Ribs, Unilateral, W/ PA Chest [facility] [address] [place] [address] (Work Place) Results Lab Results Date Name Specimen Result Interpretation Description Value Range Status Address ? 08/16/2018 Rapid Strep Group ? Strep negative ? ? [facility] [place], Throat [place]: [address], [place] 08/16/2018 Rapid Flu (A+B) ? Flu negative ? ? [facility] [place] : [address], [place] 07/27/2018 Electrocardiogram ? No observation ? ? ? [facility] recorded. [place] holley: [address], [place] 07/26/2018 CBC W/ Auto Diff [...] ? ? Automated 0.0 #/100 ? Final [place] [facility] NRBC WBC's Reference Laboratori es : [address], [place] ? ? ? Abs. NRBC 0.0 K/mm3 ? Final [place] [facility] Reference Laboratori es : [address], [place] ? ? ? [place]# 0.5 K/mm3 (0. Final [facility] 4-0 [...] ? Glucose 94 mg/dL (70 Fi nal [facility] Plasma -99 Reference ) Laboratori es mg/ [...] ? ? Chloride 103 mmol/L (98 Final [place] [facility] -10 Reference 7) Laboratori es mmo [...] ? Final [place] mL/min/1.7 Refer ence [place] 3 M2 Laborato amry : [address], [place] ? ? ? Est GFR 111 ? Final [facility] mL/min/1.7 Refer ence [place] 3 M2 Laborato mary : [address], [place] 07/26/2018 T4, Free, Serum ? Free T4 1.31 NG/dL (0. Final [facility] 70- Reference 1.8 Laboratori es 0) : [address], dL [place] 07/26/2018 TSH, Serum or ? Tsh 2.33 (0. Final [facility] Plasma mIU/mL 40- Reference 4.0 Laboratori es 0) : [address], /mL [place] 07/26/2018 Urinalysis, ? Color light ? ? B [facility] Dipstick yellow [place] ow: [address], [place] ? ? ? Appearance clear ? ? [facility] [place] : [address], [place] ? ? ? Glucose Negative ? ? Byst U cc [place] : [address], [place] ? ? ? Bilirubin Negative ? ? [facility] [place] : [address], [place] ? ? ? Ketone Negative ? ? Byst c [place] : [address], [place] ? ? ? Specific 1.005 ? ? Byst c [place]: [address], [place] ? ? ? Blood Negative(n ? ? Byst U [place]) [address], [place] ? ? ? Ph 6.0 ? ? [facility] [place] : [address], [place] ? ? ? Urobilinogen 0.2-Normal ? ? [facility] [place] : [address], [place] ? ? ? Protein Negative ? ? Byst [facility] [place] : [address], [place] ? ? ? Nitrite negative ? ? Byst U cc [place] : [address], [place] ? ? ? Leukocytes Negative ? ? Bys t [facility] [place] : [address], [place] Past Encounters None recorded. Social [...]
--- OUTSIDE RECORDS SUMMARY | 2022-04-22 21:10 | XMS_ITS ---
:1960 Author Care Team Providers Name Role Phone Michael Malone Primary Care Provider Unavailable Allergies Code Code System Name Reaction Severity Status Onset 2670 RxNorm Codeine ? ? Active ? 517746 RxNorm Cogentin ? ? Active ? 429188 RxNorm Compazine ? ? Active ? 4552882 RxNorm Gluten ? ? Active ? 20291001 RxNorm Macrodantin ? ? Active ? Mandelamine ? ? Active ? 8361744 RxNorm Marcaine ? ? Active ? Quinolones [...]
--- NOTE | 2022-04-22 21:40 | ED.GENADULT ---
HPI - General Adult General Chief complaint: Extremity Problem Stated complaint: Knee pain Time Seen by Provider: 04/22/22 21:15 Source: patient Mode of arrival: wheelchair History of Present Illness HPI narrative: 61-year-old female with a past medical history of asthma, diverticulosis, renal stones, neuropathy, pneumonia COVID-19, presenting to the ED complaining of acute on chronic bilateral knee pain worse on the left. Patient was recently evaluated in our ED on 04/20 had labs & XR's that were unremarkable, AIDEN/tick-borne panel still pending. Patient has also been evaluated by Orthopedics, had prior MRI, and was seen by rheumatology today, taking meloxicam without relief. Reports associated paresthesias below left knee. States feels unsteady on her feet due to knee pain. Admits to similar symptoms in the past with neuropathy, aided by [place]. Denies recent fall/injury or trauma, fever, chills, weakness Onset (ago): unknown Related Data Home Medications Medication Instructions Recorded Confirmed albuterol sulfate 90 mcg/actuation 2 puff inhalation Q4-6H PRN 04/07/22 04/07/22 aerosol inhaler diclofenac sodium 1 % topical gel 1 ea topical QID PRN knee pain 04/22/22 meloxicam 7.5 mg tablet 15 mg PO DAILY 04/22/22 Previous Rx's Medication Instructions Recorded lorazepam 0.5 mg tablet (Ativan) 0.5 mg PO DAILY PRN anxiety 1 day 08/19/21 #1 tab lidocaine 5 % topical ointment 1 appl topical TID PRN pain #30 04/17/22 grams prednisone 20 mg tablet 40 mg PO DAILY #10 tabs 04/17/22 ketorolac 10 mg tablet 10 mg PO TID PRN pain 5 days #15 04/22/22 tabs lorazepam 0.5 mg tablet (Ativan) 0.5 mg PO BID PRN anxiety #7 tabs 04/22/22 pregabalin 25 mg capsule (Lyrica) 25 mg PO DAILY PRN pain (scale 04/22/22 score 7-10) #10 caps Allergies Allergy/AdvReac Type Severity Reaction Status Date / Time gluten [Gluten] Allergy Severe PT HAS Verified 04/07/22 16:47 CELIAC DISEASE Sulfa (Sulfonamide Allergy Severe LUPUS-LIKE Verified 04/07/22 16:47 Antibiotics) benztropine [Cogentin] Allergy Intermediate Rash Verified 04/07/22 16:47 ciprofloxacin [From Cipro] Allergy Intermediate TENDONOPATH Verified 04/07/22 16:47 Y/NEUROPATH Y shellfish derived Allergy Intermediate Hives Verified 04/07/22 16:47 promethazine Allergy Unknown Unknown Verified 04/07/22 16:47 nitrofurantoin AdvReac Severe Drug Verified 04/22/22 08:30 [From Macrodantin] induced Hep Mandelamine Allergy Intermediate Drug Uncoded 04/22/22 08:30 induced Hep QUINOLONES Allergy Intermediate Unknown Uncoded 04/07/22 16:47 Review of Systems Review of Systems: Constitutional: No Fever, No Chills, No Fatigue, No Malaise ENT/Mouth: No Ear Pain,No Hoarseness, No sore throat, No Rhinorrhea, No Swallowing Difficulty Eyes: No Eye Pain, No Swelling, No Redness, No Vision Changes Cardiovascular: No Chest Pain, No SOB, No Edema, No Palpitations Respiratory: No Cough, No Sputum, No Dyspnea Gastrointestinal: No Nausea, No Vomiting, No Diarrhea, No Constipation, No Abdominal pain Genitourinary: No irregular bleeding, No Dysuria, No Flank Pain, No Urinary Flow Changes, No Hesitancy Musculoskeletal: + joint pain, No Myalgias, + Joint Swelling Skin: No Skin Lesions, No rash Neuro: No Weakness, No Numbness, + Paresthesias, No Dizziness, No Headache Yes all other systems are reviewed and are negative Constitutional: Constitutional: Reports as per HPI Neurologic: Denies Sensory deficit (Neuro) [facility] Past Medical History Attestation statement: The following information was validated with the patient. Medical History Asthma Celiac sprue Cough Diverticulosis Kidney stone Neuropathy Pneumonia Post-COVID chronic cough Surgical History H/O cystoscopy Hx of excision of mass (~1999) S/P cardiac cath (~07/2020) Family History Family History Mother Cervical cancer Uterine cancer History of thyroid disorder Maternal Grandmother Diabetes Stroke Maternal Grandfather Diabetes Coronary artery disease Paternal Grandmother Uterine cancer Diabetes Stroke Paternal Grandfather Stroke Father Bladder cancer Social History Social History Household Members: Spouse Household Members Other:: Son Alcohol intake: never Patient Tobacco Use Status: Never used Tobacco Advance Directives: No Advance Directives Information Provided: Yes 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[employer] Physical Exam ED Vital Signs: Vital Signs - 24 hr 04/22/22 20:22 04/22/22 21:59 Temperature 97.9 F 98.6 F Pulse Rate 116 H 94 Respiratory Rate 20 17 Blood Pressure 126/84 137/74 Pulse Oximetry 98 98 Oxygen Delivery Method Room Air Room Air BMI result Body Mass Index 17.2 Const General: cooperative, healthy appearing, no acute distress and anxious Orientation/consciousness: patient oriented x3 Limitations: no limitations HENMT Head: Yes normal to inspection and Yes atraumatic Ears: hearing grossly normal bilaterally General nose exam: Normal external nose present Face and sinus: Yes normal facial exam Eyes General: appearance normal, both eyes and all related structures EOM: EOMs intact bilaterally Neck Neck: Yes normal visual inspection and Yes no meningeal signs Resp Effort & Inspection: normal respiratory effort, not labored and no respiratory distress Cardio Rate: regular rate Heart sounds: S1 normal heart sound present and S2 normal heart sound present Peripheral pulses: posterior tibial pulses present Skin General skin exam: no rashes or lesions noted and turgor normal Rashes: no rashes Wounds: no wounds Neuro General: patient oriented x3, tone normal, moves all extremities and no meningeal signs Gait exam (Neuro): Normal gait present Sensory Exam: No Sensory deficit (Neuro) Extrem Other: Left knee with mild tenderness to palpation greatest in medial aspect. Range of motion intact with pain. Her vascular intact distally. No appreciable deformity/erythema. No laxity. Sensation intact to light touch General: Yes normal to inspection, Yes capillary refill normal, Yes no joint enlargement, Yes no pedal edema and Yes no calf tenderness Course Course Course Narrative: Vital signs improved after medications given in the ED -[id number]--patient reports pain is starting to escalate again, will try dose of IV morphine/Zofran & plan for discharge home pt reported sx improvement after morphine and feels safe for d/c home Results discussed with patient including worrisome signs and symptoms and strict return precautions, and when to return to the emergency department. They verbalized understanding and feel safe for discharge at this time. Medications Administered Discontinued Medications Generic Name Dose Route Start Last Admin Trade Name Corwin PRN Reason Stop Dose Admin Ketorolac Tromethamine 30 mg 04/22/22 21:34 04/22/22 21:47 Ketorolac Tromethamine 30 Mg/Ml Vial IVPUSH 04/22/22 21:35 30 mg ONCE ONE Administration Lorazepam 1 mg 04/22/22 22:32 04/22/22 22:39 Lorazepam 1 Mg Tablet PO 04/22/22 22:33 1 mg ONCE ONE Administration Morphine Sulfate 2 mg 04/22/22 22:49 04/22/22 23:02 Morphine Sulfate 2 Mg/Ml Cartridge IVPUSH 04/22/22 22:50 2 mg ONCE ONE Administration Protocol Ondansetron HCl 4 mg 04/22/22 22:49 04/22/22 23:02 Ondansetron Hcl 4 Mg/2 Ml Vial IVPUSH 04/22/22 22:50 4 mg ONCE ONE Administration Pregabalin 25 mg 04/22/22 21:34 04/22/22 21:47 Pregabalin 25 Mg Capsule PO 04/22/22 21:35 25 mg ONCE ONE Administration Medical Decision Making MDM Narrative Medical decision making narrative: 61-year-old female with a past medical history of asthma, diverticulosis, renal stones, neuropathy, pneumonia COVID-19, presenting to the ED complaining of acute on chronic bilateral knee pain worse on the left. On exam tachycardic likely from anxiety and pain, physical exam as above. No appreciable deformity, full range of motion intact, sensation intact to light touch, no effusion no evidence of cellulitis. Low suspicion for septic joint. Concern for neuropathy/paresthesias. Low suspicion for compartment syndrome Patient admits Lyrica and Ativan have worked in the past, will give IV Toradol and p.o. Lyrica in the ED and discharged home with short course for patient to follow-up with PCP Medical Records Medical records reviewed: Yes I reviewed the patient's medical records. Lab Data Lab results reviewed: Yes I reviewed the patient's lab results. Discharge Plan Discharge Clinical Impression: Neuropathy Patient Disposition: Home, Self-Care Instructions: Peripheral Neuropathy (ED) Additional Instructions: Your previous tick-borne illnesses and AIDEN titers are currently pending, you will be contacted if results are positive Toradol as an anti-inflammatory/pain medication, take with food. Do not take both meloxicam and Toradol at the same time Lyrica will help with your neuropathy In addition Ativan will help with anxiety, take as needed Please have close follow-up with her doctor as well as rheumatology and Orthopedics. If symptoms persist or worsen return to the emergency department Prescriptions: New lorazepam [Ativan] 0.5 mg tablet 0.5 mg PO BID PRN (Reason: anxiety) Qty: 7 0RF ketorolac 10 mg tablet 10 mg PO TID PRN (Reason: pain) 5 Days Qty: 15 0RF pregabalin [Lyrica] 25 mg capsule 25 mg PO DAILY PRN (Reason: pain (scale score 7-10)) Qty: 10 0RF No Action prednisone 20 mg tablet 40 mg PO DAILY Qty: 10 0RF lidocaine 5 % ointment 1 appl topical TID PRN (Reason: pain) Qty: 30 0RF lorazepam [Ativan] 0.5 mg tablet 0.5 mg PO DAILY PRN (Reason: anxiety) 1 Days Qty: 1 0RF albuterol sulfate 90 mcg/actuation HFA aerosol inhaler 2 puff inhalation Q4-6H PRN meloxicam 7.5 mg tablet 15 mg PO DAILY diclofenac sodium 1 % gel 1 ea topical QID PRN (Reason: knee pain) Referrals: [facility] [place] Orthopedic Surgeons [Provider Group] [facility] [place] Rheumatology Service [Provider Group] Millicent Chapa MD [Primary Care Provider] - 3 days Interventions: ED Discharge Assessment Last Done: 04/22/22 23:23 Discharge Date/Time: 04/22/22 23:23
[2022-04-22] MEDS: Ketorolac Tromethamine 30 MG/ML VIAL IVPUSH (21:47)
[2022-04-22] MEDS: Pregabalin 25 MG CAPSULE PO (21:47)
[2022-04-22 21:59] VITALS: BP 137/74; PULSE 94; RESP 17; TEMP 37; O2SAT 98
[2022-04-22] MEDS: LORazepam 1 MG TABLET PO (22:39)
[2022-04-22] MEDS: Morphine Sulfate 2 MG/ML CARTRIDGE IVPUSH (23:02)
[2022-04-22] MEDS: ondansetron HCL 4 MG/2 ML VIAL IVPUSH (23:02)
== END 2022-04-22 23:23 | disposition home or self-care (01) ==
PROVIDERS: Emergency Provider Emergency Medicine; PCP Internal Medicine
DX: G61.9 Inflammatory polyneuropathy, unspecified (principal); M25.562 Pain in left knee; M25.561 Pain in right knee; Z79.899 Other long term (current) drug therapy
CPT/HCPCS: 96374; 96375; 99283; 99284; J1885; J2270; J2405

== ENCOUNTER 2022-04-25 11:45 | Emergency (ER) | payer BC, SELFPAY ==
--- NOTE | ~2022-04-25 | MR_ITS ---
EXAMINATION: MR KNEE WITHOUT CONTRAST, LEFT CLINICAL INFORMATION: Severe pain. COMPARISON: Radiographs dated 04/20/2022 and MRI dated 08/18/2021. TECHNIQUE: MRI of the knee without contrast was performed using routine sequences on a high-field scanner. FINDINGS: MENISCI: Medial Meniscus: Intact. Lateral Meniscus: Previously suspected fraying at the meniscal body is not well seen on the current study. No discrete tears. LIGAMENTS: Cruciate: Intact. Collateral: Intact. EXTENSOR MECHANISM: Intact. ARTICULAR CARTILAGE/BONE: Patellofemoral Compartment: Subtle chondral thinning and fissuring are suspected at the median ridge of the patella and, to a lesser extent, the medial trochlear facet. Normal trochlear morphology. Medial Compartment: Normal. Lateral Compartment: Normal. JOINT FLUID AND BURSAE: Trace fluid in the joints is within normal limits. Trace Lyons's cyst. MR/MR knee LT wo con IMPRESSION: 1. Minimal patellofemoral compartment arthrosis. No appreciable MR findings to correlate with the patient's severity of symptoms. 2. Previously suspected fraying at the lateral meniscal body is not well seen on the current study. No meniscal tears. 3. Trace Lyons's cyst.
--- NOTE | ~2022-04-25 | MR_ITS ---
EXAMINATION: MR KNEE WITHOUT CONTRAST, RIGHT CLINICAL INFORMATION: Severe pain. COMPARISON: Radiographs dated 04/20/2022. TECHNIQUE: MRI of the knee without contrast was performed using routine sequences on a high-field scanner. FINDINGS: MENISCI: Medial Meniscus: Intact. Lateral Meniscus: Intact. LIGAMENTS: Cruciate: Intact. Collateral: Intact. EXTENSOR MECHANISM: Intact. ARTICULAR CARTILAGE/BONE: Patellofemoral Compartment: There is very subtle chondral surface irregularity at the patella along the median ridge. In the central trochlear groove, there is a full-thickness chondral fissure measuring approximately 8 mm in length with underlying cortical irregularity and minimal subcortical cystic change. Normal trochlear morphology. Medial Compartment: Normal. Lateral Compartment: Normal. JOINT FLUID AND BURSAE: Trace joint fluid is within normal limits. No Lyons's cyst. No loose bodies. MR/MR knee RT wo con IMPRESSION: 1. Minimal patellofemoral compartment osteoarthritis with a full-thickness chondral fissure in the central trochlear groove. 2. Intact ligaments and menisci.
[2022-04-25 11:50] VITALS: BP 127/75; PULSE 98; RESP 18; TEMP 36.8; O2SAT 100; BMI 18.2
--- NOTE | 2022-04-25 11:51 | ED.LOWEXIN ---
HPI - Extremity Injury (Lower) General Chief Complaint: Extremity Problem <Bryanna Tierney CNP - Last Filed: 04/25/22 12:03> Stated Complaint: fall leg pain <Bryanna Tierney CNP - Last Filed: 04/25/22 12:03> Time Seen by Provider: 04/25/22 12:38 <Bryanna Tierney CNP - Last Filed: 04/25/22 12:03> Source: patient, family and old records reviewed <TENISHA Cisneros - Last Filed: 04/25/22 18:31> Mode of arrival: wheelchair <TENISHA Cisneros - Last Filed: 04/25/22 18:31> Limitations: no limitations <TENISHA Cisneros - Last Filed: 04/25/22 18:31> History of Present Illness HPI Narrative: 61-year-old female presents to the ER for the 4th time in a week and half for severe, debilitating bilateral knee pain. She reports a history of injury due to a fall in March of 2021 resulting in left knee pain. She had an MRI, was seeing physical therapy and orthopedics for this in the past. She was previously taking NSAIDs for about 1 year for relief. She had to come off of her NSAIDs due to hematuria in January. She was then on steroids. She denies any new injury. She reports the pain in her left knee is ongoing and worsening acutely. It is located in the medial aspect of her knee and radiates down the front of her left leg to her great toe. She has numbness with flexion of the knee. Her ROM has declined significantly due to pain. She also has pain in her right knee that is nontraumatic that has been going on for some time as well. She states her pain is minimally improved with previously prescribed Toradol, Lyrica & Ativan for muscle spasms. She states she is barely able to ambulate or do any of her ADLs due to the pain. Pain is significantly worse with weight-bearing. Patient was seen for the same on April 17, April 20, and April 22. She is back today asking for an MRI of her knees for a diagnosis. There has been issues with her PCP not being able to order the MRIs appropriately. She called her prior physical therapy location and no return call after 3 attempts. <TENISHA Cisneros - Last Filed: 04/25/22 18:31> MD complaint: knee injury <TENISHA Cisneros - Last Filed: 04/25/22 18:31> Onset (ago): week(s) <TENISHA Cisneros - Last Filed: 04/25/22 18:31> Injury: Bilateral: knee <TENISHA Cisneros - Last Filed: 04/25/22 18:31> Severity: severe <TENISHA Cisneros - Last Filed: 04/25/22 18:31> Severity scale (1-10): 10 <TENISHA Cisneros - Last Filed: 04/25/22 18:31> Relieving factors: immobilization and rest <TENISHA Cisneros - Last Filed: 04/25/22 18:31> Exacerbating factors: weight bearing, movement and palpation <TENISHA Cisneros - Last Filed: 04/25/22 18:31> Context: fall <TENISHA Cisneros - Last Filed: 04/25/22 18:31> Associated symptoms: unable to bear weight <TENISHA Cisneros - Last Filed: 04/25/22 18:31> Other symptoms: none <TENISHA Cisneros - Last Filed: 04/25/22 18:31> Treatments prior to arrival: NSAIDS <TENISHA Cisneros - Last Filed: 04/25/22 18:31> Related Data Home Medications: Home Medications Medication Instructions Recorded Confirmed albuterol sulfate 90 mcg/actuation 2 puff inhalation Q4-6H PRN 04/07/22 04/07/22 aerosol inhaler diclofenac sodium 1 % topical gel 1 ea topical QID PRN knee pain 04/22/22 meloxicam 7.5 mg tablet 15 mg PO DAILY 04/22/22 Previous Rx's Medication Instructions Recorded lidocaine 5 % topical ointment 1 appl topical TID PRN pain #30 04/17/22 grams ketorolac 10 mg tablet 10 mg PO TID PRN pain 5 days #15 04/23/22 tabs lorazepam 0.5 mg tablet (Ativan) 0.5 mg PO TID PRN anxiety #7 tabs 11/24/22 pregabalin 25 mg capsule (Lyrica) 25 mg PO DAILY #14 caps 04/23/22 hydromorphone 2 mg tablet 2 mg PO Q6H PRN severe pain (scale 04/25/22 (Dilaudid) score 7-10) #8 tabs ondansetron 4 mg disintegrating 4 mg PO Q8H PRN nausea and 04/25/22 tablet vomiting #7 tabs prednisone 20 mg tablet 40 mg PO DAILY #10 tabs 04/25/22 prednisone 20 mg tablet 40 mg PO DAILY #10 tabs 04/25/22 <Bryanna Tierney CNP - Last Filed: 04/25/22 12:03> Allergies/Adverse Reactions: Allergies Allergy/AdvReac Type Severity Reaction Status Date / Time gluten [Gluten] Allergy Severe PT HAS Verified 04/07/22 16:47 CELIAC DISEASE Sulfa (Sulfonamide Allergy Severe LUPUS-LIKE Verified 04/07/22 16:47 Antibiotics) benztropine [Cogentin] Allergy Intermediate Rash Verified 04/07/22 16:47 ciprofloxacin [From Cipro] Allergy Intermediate TENDONOPATH Verified 04/07/22 16:47 Y/NEUROPATH Y shellfish derived Allergy Intermediate Hives Verified 04/07/22 16:47 promethazine Allergy Unknown Unknown Verified 04/07/22 16:47 nitrofurantoin AdvReac Severe Drug Verified 04/22/22 08:30 [From Macrodantin] induced Hep Mandelamine Allergy Intermediate Drug Uncoded 04/22/22 08:30 induced Hep QUINOLONES Allergy Intermediate Unknown Uncoded 04/07/22 16:47 <Bryanna Tierney CNP - Last Filed: 04/25/22 12:03> Review of Systems Review of Systems: Constitutional: No Fever, No Chills ENT/Mouth: No sore throat, No Rhinorrhea Cardiovascular: No Chest Pain, No SOB Gastrointestinal: No Nausea, No Vomiting, No Diarrhea, No abdominal Pain Musculoskeletal: + joint pain, No Myalgias Skin: No Skin Lesions, No rash Neuro: No Weakness, + Numbness, No Dizziness, No Headache Psych: + Anxiety/Panic, No Depression Heme/Lymph: No Bruising, No Lymphadenopathy <TENISHA Cisneros - Last Filed: 04/25/22 18:31> [facility] Past Medical History Medical History: Medical History Asthma Celiac sprue Cough Diverticulosis Kidney stone Neuropathy Pneumonia Post-COVID chronic cough <Bryanna Tierney CNP - Last Filed: 04/25/22 12:03> Surgical History: Surgical History H/O cystoscopy Hx of excision of mass (~1999) S/P cardiac cath (~07/2020) <Bryanna Tierney CNP - Last Filed: 04/25/22 12:03> Family History Family History: Family History Mother Cervical cancer Uterine cancer History of thyroid disorder Maternal Grandmother Diabetes Stroke Maternal Grandfather Diabetes Coronary artery disease Paternal Grandmother Uterine cancer Diabetes Stroke Paternal Grandfather Stroke Father Bladder cancer <Bryanna Tierney CNP - Last Filed: 04/25/22 12:03> Social History Social History: Social History Household Members: Spouse Household Members Other:: Son Alcohol intake: never Patient Tobacco Use Status: Never used Tobacco Advance Directives: No Advance Directives Information Provided: No 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[employer] [place]Bryanna Tierney CNP - Last Filed: 04/25/22 12:03> Physical Exam Vital Signs: Vital Signs: Last Vital Signs Temp 96.5 F L 04/25/22 17:28 Pulse 99 04/25/22 17:28 Resp 18 04/25/22 17:28 BP 114/77 04/25/22 17:28 Pulse Ox 98 04/25/22 17:28 O2 Del Method 04/25/22 17:28 BMI result Body Mass Index 18.2 <Bryanna Tierney CNP - Last Filed: 04/25/22 12:03> Vital Signs: Last Vital Signs Temp 96.5 F L 04/25/22 17:28 Pulse 99 04/25/22 17:28 Resp 18 04/25/22 17:28 BP 114/77 04/25/22 17:28 Pulse Ox 98 04/25/22 17:28 O2 Del Method 04/25/22 17:28 BMI result Body Mass Index 18.2 <TENISHA Cisneros - Last Filed: 04/25/22 18:31> Appearance: Alert. Oriented X3. Anxious, tremulous, tearful. HEENT: normal inspection CVS: Normal heart rate and rhythm. Pulses normal. Respiratory: No respiratory distress. Skin: Skin warm and dry. Normal skin color. Normal skin turgor. No rashes. Extremities: Normal inspection of the bilateral knees without any gross deformity or swelling. tenderness of the medial joint line bilaterally. Significantly limited flexion bilaterally with pain once 30 degrees. Exam is limited due to pain. Declining varus or valgus stress test. Unable to tolerate flexion for anterior drawer test. Neuro: Oriented X 3. Unable to test DTRs due to pain. Gait not tested due to pain <TENISHA Cisneros - Last Filed: 04/25/22 18:31> Course Course Course Narrative: RME: Patient is a 61 year old female. Presents to the ED for bilateral knee pain acute on chronic. Left worse than right. She is awaiting outpatient MRI. Currently prescribed Ketorolac, lyrica, and loazepam which has helped her patellar pain and the numbness that was extending to the great toe, but her knee pain continues to be constant, and becoming unbearable. She feels it is too difficult to walk. She is currently followed by Orthopedics as well as rheumatology. She states that 3 weeks ago she had COVID-19 infection, and since then the knee pain has been markedly worse. PE: Bilateral knees without obvious deformity, erythema, warmth swelling. 2+ DP/PT pulse bilaterally. Sitting in wheelchair unable to ambulate at the time of examination sat examination is very to pain.econdary to pain. Plan: Pain management, ?PT evaluation if unable to ambulate <Bryanna Tierney CNP - Last Filed: 04/25/22 12:03> Reevaluation(s) Reevaluation #1: 61-year-old female presenting to the ER with acute on chronic knee pain. No recent trauma. X-rays recently were normal. Patient reports the pain is severe and debilitating, limiting her ability to perform her ADLs. Unable to bear weight at this time. Will get MRI of her knees today after d/w Dr. Esquivel. Declining oral oxycodone, morphine or hydrocodone due to vomiting with this in the past. Patient is adamantly refusing a need for short-term rehab, declining need for physical therapy or Case Management involvement. <TENISHA Cisneros - Last Filed: 04/25/22 18:31> Reevaluation #2: MRI showing minimal osteoarthritic changes. No findings to correlate with the patient's severity of symptoms. Orthopedic PA was [place] texted, recommending outpatient follow-up early next week and course of prednisone. Results were discussed with patient and her . She reports in the past she has responded well to oral Dilaudid and has not vomited. Will give trial here with Yanely and see how she does. <TENISHA Cisneros - Last Filed: 04/25/22 18:31> Reevaluation #3: Patient tolerated the oral Dilaudid. Again refusing evaluation for short-term rehab. Stable for discharge home with her , with plan to follow-up with orthopedics on Wednesday. <TENISHA Cisneros - Last Filed: 04/25/22 18:31> Medications Administered Discontinued Medications Generic Name Dose Route Start Last Admin Trade Name Freq PRN Reason Stop Dose Admin Hydrocodone Bitart/Acetaminophen 1 tab 04/25/22 13:13 04/25/22 13:39 Hydrocodone Bit/Acetam 5/325 Tablet PO 04/25/22 13:14 Not Given ONCE ONE Hydromorphone HCl 1 mg 04/25/22 17:14 04/25/22 17:46 Hydromorphone Hcl 2 Mg Tablet PO 04/25/22 17:15 1 mg ONCE ONE Administration Ondansetron HCl 4 mg 04/25/22 13:13 04/25/22 13:39 Ondansetron Odt 4 Mg Tab.Janet TRANSLINGU 04/25/22 13:14 4 mg ONCE ONE Administration <Bryanna Tierney CNP - Last Filed: 04/25/22 12:03> Medications Administered Discontinued Medications Generic Name Dose Route Start Last Admin Trade Name Freq PRN Reason Stop Dose Admin Hydrocodone Bitart/Acetaminophen 1 tab 04/25/22 13:13 04/25/22 13:39 Hydrocodone Bit/Acetam 5/325 Tablet PO 04/25/22 13:14 Not Given ONCE ONE Hydromorphone HCl 1 mg 04/25/22 17:14 04/25/22 17:46 Hydromorphone Hcl 2 Mg Tablet PO 04/25/22 17:15 1 mg ONCE ONE Administration Ondansetron HCl 4 mg 04/25/22 13:13 04/25/22 13:39 Ondansetron Odt 4 Mg Tab.Jean-Pauljey ADEOLAINGU 04/25/22 13:14 4 mg ONCE ONE Administration <TENISHA Cisneros - Last Filed: 04/25/22 18:31> Discharge Plan Discharge Clinical Impression: Acute pain of both knees <Bryanna Tierney CNP - Last Filed: 04/25/22 12:03> Patient Disposition: Home, Self-Care <Bryanna Tierney CNP - Last Filed: 04/25/22 12:03> Instructions: Knee Pain (ED) <Bryanna Tierney CNP - Last Filed: 04/25/22 12:03> Additional Instructions: Right knee MRI today showed minimal patellofemoral compartment osteoarthritis with full-thickness chondral fissure in the central trochlear groove. Findings are consistent with osteoarthritis. No ligament or meniscus injury. Left knee MRI today showed minimal patellofemoral compartment arthrosis. No meniscal tears. Unclear etiology of your severe knee pain. Continue previously prescribed medications. Recommend gentle range of motion as tolerated. Recommend following with orthopedics on Wednesday, call the office for an appointment. Follow up with your PCP as well. If you develop new or worsening symptoms call 911 or come back to the ER for further evaluation. <Bryanna Tierney CNP - Last Filed: 04/25/22 12:03> Prescriptions: New prednisone 20 mg tablet 40 mg PO DAILY Qty: 10 0RF prednisone 20 mg tablet 40 mg PO DAILY Qty: 10 0RF ondansetron 4 mg tablet,disintegrating 4 mg PO Q8H PRN (Reason: nausea and vomiting) Qty: 7 0RF hydromorphone [Dilaudid] 2 mg tablet 2 mg PO Q6H PRN (Reason: severe pain (scale score 7-10)) Qty: 8 0RF Rx Instructions: Partial Fill upon patient request. Discontinued prednisone 20 mg tablet 40 mg PO DAILY Qty: 10 0RF No Action lidocaine 5 % ointment 1 appl topical TID PRN (Reason: pain) Qty: 30 0RF ketorolac 10 mg tablet 10 mg PO TID PRN (Reason: pain) 5 Days Qty: 15 0RF pregabalin [Lyrica] 25 mg capsule 25 mg PO DAILY Qty: 14 0RF lorazepam [Ativan] 0.5 mg tablet 0.5 mg PO TID PRN (Reason: anxiety) Qty: 7 0RF albuterol sulfate 90 mcg/actuation HFA aerosol inhaler 2 puff inhalation Q4-6H PRN meloxicam 7.5 mg tablet 15 mg PO DAILY diclofenac sodium 1 % gel 1 ea topical QID PRN (Reason: knee pain) <Bryanna Tierney CNP - Last Filed: 04/25/22 12:03> Referrals: [facility] [place] Orthopedic Surgeons [Provider Group] <Bryanna Tierney CNP - Last Filed: 04/25/22 12:03>
--- OUTSIDE RECORDS SUMMARY | 2022-04-25 13:02 | XMS_ITS ---
:1960 Author Care Team Providers Name Role Phone Isak Hernandez Primary Care Provider Unavailable Allergies Code Code System Name Reaction Severity Status Onset 431999 RxNorm Bactrim ? ? Active ? 049655 RxNorm Cipro ? ? Active ? 443211 RxNorm Cogentin ? ? Active ? 20340903 RxNorm Compazine ? ? Active ? 20291001 RxNorm Macrodantin ? ? Active ? Quinidine-quinine Analogues ? ? Ac tive ? ([place]inchona Alkaloids) Sulfa (Sulfonamide ? ? Active ? Antibiotics) Medications Name Status Start Date Stop Date ? ? Afluria Quad 4244-3226 (PF) 60 mcg (15 mcg x 4)/0.5 [...] Name Performed by ? 07/26/2018 Electrocardiogram [facility] [place] [address] [place] [address] (Work Place) 08/28/2018 XR, Ribs, Unilateral, W/ PA Chest [facility] [address] [place] [address] (Work Place) Results Lab Results Date Name Specimen Result Interpretation Description Value Range Status Address ? 08/16/2018 Rapid Strep Group ? Strep negative ? ? Byst [facility] a, Throat [place] holley: [address], [place] 08/16/2018 Rapid Flu (A+B) ? Flu negative ? ? Byst [facility] [place] : [address], [place] 07/27/2018 Electrocardiogram ? No observation ? ? ? Byst [facility] recorded. Ruslan holley: [address], [place] 07/26/2018 CBC W/ Auto Diff [...] ? ? Automated 0.0 #/100 ? Final [place] NRBC WBC's Reference Laboratori es : [address], [place] ? ? ? Abs. NRBC 0.0 K/mm3 ? Final [place] Reference Laboratori es : [address], [place] ? ? ? [place]# 0.5 K/mm3 (0. Final [facility] 4-0 [...] ? Glucose 94 mg/dL (70 Fi nal [place] Plasma -99 Reference ) Laboratori es mg/ [...] ? ? Chloride 103 mmol/L (98 Final [place] -10 Reference 7) Laboratori es mmo [...] Serum or ? Tsh 2.33 (0. Final [facility] Plasma mIU/mL 40- Reference 4.0 Laboratori es 0) : [address], /mL [place] 07/26/2018 Urinalysis, ? Color light ? ? B yst [facility] Dipstick yellow [place] ow: [address], [place] ? ? ? Appearance clear ? ? [facility]st [facility] [place] : [address], [place] ? ? ? Glucose Negative ? ? Byst U cc [place] : [address], [place] ? ? ? Bilirubin Negative ? ? [facility]st [facility] [place] : [address], [place] ? ? ? Ketone Negative ? ? Byst c [place] : [address], [place] ? ? ? Specific 1.005 ? ? Byst c [place]: [address], [place] ? ? ? Blood Negative(n ? ? Byst U cc on[place]hemolyz [place]: ed) [address], [place] ? ? ? Ph 6.0 ? ? Byst [facility] [place] : [address], [place] ? ? ? Urobilinogen 0.2-Normal ? ? Byst [facility] [place] : [address], [place] ? ? ? Protein Negative ? ? Byst U cc [place] : [address], [place] ? ? ? Nitrite negative ? ? Byst U cc [place] : [address], [place] ? ? ? Leukocytes Negative ? ? Bys t [facility] [place] : [address], [place] Past Encounters None recorded. Social [...]
--- OUTSIDE RECORDS SUMMARY | 2022-04-25 13:02 | XMS_ITS ---
:1960 Author Care Team Providers Name Role Phone Michael Malone Primary Care Provider Unavailable Allergies Code Code System Name Reaction Severity Status Onset 2670 RxNorm Codeine ? ? Active ? 502584 RxNorm Cogentin ? ? Active ? 285848 RxNorm Compazine ? ? Active ? 5901310 RxNorm Gluten ? ? Active ? 20291001 RxNorm Macrodantin ? ? Active ? Mandelamine ? ? Active ? 4142029 RxNorm Marcaine ? ? Active ? Quinolones [...]
[2022-04-25] MEDS: Ondansetron ODT 4 MG TAB.RAPDIS TRANSLINGU (13:39)
[2022-04-25 13:50] VITALS: BP 125/88; PULSE 88; RESP 18; TEMP 35.7; O2SAT 99
[2022-04-25 17:28] VITALS: BP 114/77; PULSE 99; RESP 18; TEMP 35.8; O2SAT 98
[2022-04-25] MEDS: HYDROmorphone HCl 2 MG TABLET 1 MG PO (17:46)
== END 2022-04-25 19:01 | disposition home or self-care (01) ==
PROVIDERS: Emergency Provider Emergency Medicine; PCP Internal Medicine
DX: M25.562 Pain in left knee (principal); M25.561 Pain in right knee; M17.11 Unilateral primary osteoarthritis, right knee
CPT/HCPCS: 73721; 99284; 99285

== ENCOUNTER 2022-04-27 06:29 | Emergency (ER) | payer BC, SELFPAY ==
--- NOTE | ~2022-04-27 | XR_ITS ---
EXAMINATION: XR CHEST CLINICAL INFORMATION: Cough after COVID. COMPARISON: 04/07/2022 chest radiographs. TECHNIQUE: 2 views of the chest were obtained. FINDINGS: No significant abnormality is noted involving the heart, lungs, mediastinum, bony thorax or soft tissues. XR/XR chest 2V IMPRESSION: No acute cardiopulmonary process.
[2022-04-27 06:45] VITALS: BP 112/77; PULSE 124; RESP 16; TEMP 37.2; O2SAT 96; BMI 17.2
--- NOTE | 2022-04-27 07:05 | ED.GENADULT ---
HPI - General Adult General Chief complaint: Extremity Problem Stated complaint: body aches, nausea vomiting, dr's Time Seen by Provider: 04/27/22 07:05 Source: patient Mode of arrival: ambulatory Limitations: no limitations History of Present Illness HPI narrative: Patient has been here 5 times for similar pain. Patient placed on dilaudid and has had increasing nausea and weakness. Patient with increasing nausea and weakness with cough that she attributes to her past COVID a few weeks ago. Patient with increasing cough with chest pain. She also describes diffuse arthralgias. Patient is seeing Dr. Mahoney of rheumatology. patient has seen rheumatology, urology primary care all in the last few weeks. Onset (ago): week(s) Severity: moderate Pain Consistency: constant Associated symptoms: chest pain, cough, malaise, nausea/vomiting and weakness Related Data Home Medications Medication Instructions Recorded Confirmed albuterol sulfate 90 mcg/actuation 2 puff inhalation Q4-6H PRN 04/07/22 04/07/22 aerosol inhaler diclofenac sodium 1 % topical gel 1 ea topical QID PRN knee pain 04/22/22 meloxicam 7.5 mg tablet 15 mg PO DAILY 04/22/22 Previous Rx's Medication Instructions Recorded lidocaine 5 % topical ointment 1 appl topical TID PRN pain #30 04/17/22 grams ketorolac 10 mg tablet 10 mg PO TID PRN pain 5 days #15 04/23/22 tabs lorazepam 0.5 mg tablet (Ativan) 0.5 mg PO TID PRN anxiety #7 tabs 04/23/22 pregabalin 25 mg capsule (Lyrica) 25 mg PO DAILY #14 caps 04/23/22 hydromorphone 2 mg tablet 2 mg PO Q6H PRN severe pain (scale 04/25/22 (Dilaudid) score 7-10) #8 tabs ondansetron 4 mg disintegrating 4 mg PO Q8H PRN nausea and 04/25/22 tablet vomiting #7 tabs prednisone 20 mg tablet 40 mg PO DAILY #10 tabs 04/25/22 prednisone 20 mg tablet 40 mg PO DAILY #10 tabs 04/25/22 ondansetron 4 mg disintegrating 4 mg PO Q8H 4 days #12 tabs 04/27/22 tablet pantoprazole 40 mg tablet,delayed 40 mg PO DAILY #20 tabs 04/27/22 release (Protonix) Allergies Allergy/AdvReac Type Severity Reaction Status Date / Time gluten [Gluten] Allergy Severe PT HAS Verified 04/07/22 16:47 CELIAC DISEASE Sulfa (Sulfonamide Allergy Severe LUPUS-LIKE Verified 04/07/22 16:47 Antibiotics) benztropine [Cogentin] Allergy Intermediate Rash Verified 04/07/22 16:47 ciprofloxacin [From Cipro] Allergy Intermediate TENDONOPATH Verified 04/07/22 16:47 Y/NEUROPATH Y shellfish derived Allergy Intermediate Hives Verified 04/07/22 16:47 promethazine Allergy Unknown Unknown Verified 04/07/22 16:47 nitrofurantoin AdvReac Severe Drug Verified 04/22/22 08:30 [From Macrodantin] induced Hep Mandelamine Allergy Intermediate Drug Uncoded 04/22/22 08:30 induced Hep QUINOLONES Allergy Intermediate Unknown Uncoded 04/07/22 16:47 Review of Systems Review of Systems: Yes all other systems are reviewed and are negative Constitutional: Constitutional: Reports as per HPI, Reports body ache(s) and Reports malaise Cardiovascular: Cardiovascular: Reports chest pain Respiratory: Respiratory: Reports cough Gastrointestinal: Gastrointestinal: Reports nausea and Reports vomiting PMFSH Past Medical History Medical History Asthma Celiac sprue Cough Diverticulosis Kidney stone Neuropathy Pneumonia Post-COVID chronic cough Surgical History H/O cystoscopy Hx of excision of mass (~1999) S/P cardiac cath (~07/2020) Family History Family History Mother Cervical cancer Uterine cancer History of thyroid disorder Maternal Grandmother Diabetes Stroke Maternal Grandfather Diabetes Coronary artery disease Paternal Grandmother Uterine cancer Diabetes Stroke Paternal Grandfather Stroke Father Bladder cancer Social History Social History Household Members: Spouse Household Members Other:: Son Alcohol intake: never Patient Tobacco Use Status: Never used Tobacco Smoked in Last 30 Days: No Use of substances other than those prescribed or required for medical reasons: No Advance Directives: No Advance Directives Information Provided: Yes Patient : No 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 Will start zofran and protonix Time: 11:24 Medications Administered Discontinued Medications Generic Name Dose Route Start Last Admin Trade Name Freq PRN Reason Stop Dose Admin Sodium Chloride 1,000 mls @ 999 mls/hr 04/27/22 07:30 04/27/22 09:09 Ns IVCONT 04/27/22 09:30 999 mls/hr .Q1H1M MCKAY Administration Ketorolac Tromethamine 30 mg 04/27/22 09:11 04/27/22 09:13 Ketorolac Tromethamine 30 Mg/Ml Vial IVPUSH 04/27/22 09:12 30 mg ONCE ONE Administration Ondansetron HCl 4 mg 04/27/22 07:25 04/27/22 07:47 Ondansetron Hcl 4 Mg/2 Ml Vial IVPUSH 04/27/22 07:26 4 mg ONCE ONE Administration Medical Decision Making Lab Data Result diagrams: 04/27/22 07:39 04/27/22 07:39 Labs: Lab Results 04/27/22 04/27/22 04/27/22 Range/Units 07:39 07:39 07:39 WBC 6.0 (4.8-10.8) X10*3/uL RBC 4.23 (4.20-5.50) X10*6/uL Hgb 11.9 L (12.0-16.0) g/dl Hct 37.8 (37.0-47.0) % MCV 89.4 (80.0-98.0) fL MCH 28.1 (27.0-33.0) pg MCHC 31.5 (31.0-35.0) g/dl RDW 12.8 (11.0-16.0) % Plt Count 257 (160-400) X10*3/uL MPV 9.5 (9.4-12.3) fL Immature Gran % (Auto) 0.7 H (0.0-0.4) % Neut % (Auto) 79.9 H (45-73) % Lymph % (Auto) 8.5 L (20-40) % Reynolds % (Auto) 9.1 (2-11) % Eos % (Auto) 1.5 (0-4) % Baso % (Auto) 0.3 (0-2) % Lymph # (Auto) 0.5 L (1.2-4.9) X10*3/uL Reynolds # (Auto) 0.6 (0.1-1.2) X10*3/uL Eos # (Auto) 0.1 (0.0-0.4) X10*3/uL Baso # (Auto) 0.0 (0.0-0.2) X10*3/uL Abs Immat Gran (auto) 0.04 H (0.00-0.03) X10*3/uL Absolute Neuts (auto) 4.8 (2.0-8.3) x10*3/uL Absolute Nucleated RBC 0.000 (0.0-0.012) X10*3/uL Nucleated RBC % (auto) 0.0 (0.0-0.2) /100WBC Sodium 140 (135-145) mmol/L Potassium 3.8 (3.3-5.1) mmol/L Chloride 104 (96-108) mmol/L Carbon Dioxide 29 (22-29) mmol/L Anion Gap 11 L (12-20) BUN 25 H (9-16) mg/dL Creatinine 0.58 (0.5-1.4) mg/dL Estim Creat Clear Calc 65.5 Estimated GFR > 60 Random Glucose 121 H (60-115) mg/dL Calcium 9.4 (8.4-10.2) mg/dL Total Bilirubin 0.2 (0.0-1.0) mg/dL Direct Bilirubin < 0.2 (0.0-0.5) mg/dL AST 17 (5-31) U/L ALT 16 (0-31) U/L Alkaline Phosphatase 56 (39-117) U/L Troponin I High Sens < 3.5 (<3.5-17.0) ng/L Total Protein 5.7 L (6.5-8.0) g/dL Albumin 3.5 (3.5-5.0) g/dL Imaging Data Chest x-ray: Radiologist's impression: FINDINGS: No significant abnormality is noted involving the heart, lungs, mediastinum, bony thorax or soft tissues. XR/XR chest 2V IMPRESSION: No acute cardiopulmonary process. ECG Data Attestation: I personally reviewed and interpreted this ECG as follows: Interpretation: sinus 80, old anteroseptal qs, no acute ST or t wave depression Discharge Plan Discharge Clinical Impression: Neuropathy, Drug side effects, Nausea Patient Disposition: Home, Self-Care Instructions: Acute Nausea and Vomiting (ED), Peripheral Neuropathy (ED), Adverse Drug Reaction (ED) Prescriptions: New pantoprazole [Protonix] 40 mg tablet,delayed release (DR/EC) 40 mg PO DAILY Qty: 20 0RF ondansetron 4 mg tablet,disintegrating 4 mg PO Q8H 4 Days Qty: 12 0RF No Action lidocaine 5 % ointment 1 appl topical TID PRN (Reason: pain) Qty: 30 0RF ketorolac 10 mg tablet 10 mg PO TID PRN (Reason: pain) 5 Days Qty: 15 0RF pregabalin [Lyrica] 25 mg capsule 25 mg PO DAILY Qty: 14 0RF lorazepam [Ativan] 0.5 mg tablet 0.5 mg PO TID PRN (Reason: anxiety) Qty: 7 0RF prednisone 20 mg tablet 40 mg PO DAILY Qty: 10 0RF prednisone 20 mg tablet 40 mg PO DAILY Qty: 10 0RF ondansetron 4 mg tablet,disintegrating 4 mg PO Q8H PRN (Reason: nausea and vomiting) Qty: 7 0RF hydromorphone [Dilaudid] 2 mg tablet 2 mg PO Q6H PRN (Reason: severe pain (scale score 7-10)) Qty: 8 0RF Rx Instructions: Partial Fill upon patient request. albuterol sulfate 90 mcg/actuation HFA aerosol inhaler 2 puff inhalation Q4-6H PRN meloxicam 7.5 mg tablet 15 mg PO DAILY diclofenac sodium 1 % gel 1 ea topical QID PRN (Reason: knee pain) Referrals: Millicent Chapa MD [Primary Care Provider] - 3 days
--- OUTSIDE RECORDS SUMMARY | 2022-04-27 07:10 | XMS_ITS ---
:1960 Author Care Team Providers Name Role Phone Isak Hernandez Primary Care Provider Unavailable Allergies Code Code System Name Reaction Severity Status Onset 748084 RxNorm Bactrim ? ? Active ? 210573 RxNorm Cipro ? ? Active ? 387316 RxNorm Cogentin ? ? Active ? 20340903 RxNorm Compazine ? ? Active ? 20291001 RxNorm Macrodantin ? ? Active ? Quinidine-quinine Analogues ? ? Ac tive ? ([place] Alkaloids) Sulfa (Sulfonamide ? ? Active ? Antibiotics) Medications Name Status Start Date Stop Date ? ? Afluria Quad 8218-3684 (PF) 60 mcg (15 mcg x 4)/0.5 [...] Name Performed by ? 07/26/2018 Electrocardiogram [facility] [place] [address] [place] [address] (Work Place) 08/28/2018 XR, Ribs, Unilateral, W/ PA Chest [facility] [address] [place] [address] (Work Place) Results Lab Results Date Name Specimen Result Interpretation Description Value Range Status Address ? 08/16/2018 Rapid Strep Group ? Strep negative ? ? Byst [facility] a, Throat [place] holley: [address], [place] 08/16/2018 Rapid Flu (A+B) ? Flu negative ? ? [facility] [place] : [address], [place] 07/27/2018 Electrocardiogram ? No observation ? ? ? [facility] recorded. [place] holley: [address], [place] 07/26/2018 CBC W/ Auto Diff [...] ? ? Automated 0.0 #/100 ? Final [place] NRBC WBC's Reference Laboratori es : [address], [place] ? ? ? Abs. NRBC 0.0 K/mm3 ? Final [place] Reference Laboratori es : [address], [place] ? ? ? [place]# 0.5 K/mm3 (0. Final [facility] 4-0 [...] ? Glucose 94 mg/dL (70 Fi nal [place] Plasma -99 Reference ) Laboratori es mg/ [...] ? ? Chloride 103 mmol/L (98 Final [place] -10 Reference 7) Laboratori es mmo [...] ? Final [place] mL/min/1.7 Refer ence [place] 3 M2 Laborato mary : [address], [place] ? ? ? Est GFR 111 ? Final [facility] mL/min/1.7 Refer ence [place] 3 M2 Laborato mary : [address], [place] 07/26/2018 T4, Free, Serum ? Free T4 1.31 NG/dL (0. Final [facility] 70- Reference 1.8 Laboratori es 0) : [address], dL [place] 07/26/2018 TSH, Serum or ? Tsh 2.33 (0. Final [facility] Plasma mIU/mL 40- Reference 4.0 Laboratori es 0) : [address], /mL [place] 07/26/2018 Urinalysis, ? Color light ? ? B [facility]st [facility] Dipstick yellow [place] ow: [address], [place] ? ? ? Appearance clear ? ? [facility]st [facility] [place] : [address], [place] ? ? ? Glucose Negative ? ? Byst U cc [place] : [address], [place] ? ? ? Bilirubin Negative ? ? [facility]st [facility] [place] : [address], [place] ? ? ? Ketone Negative ? ? Byst c [place] : [address], [place] ? ? ? Specific 1.005 ? ? Byst c [place]: [address], [place] ? ? ? Blood Negative(n ? ? Byst U cc [place]olyz [place] ed) [address], [place] ? ? ? Ph 6.0 ? ? [facility]st [facility] [place] : [address], [place] ? ? ? Urobilinogen 0.2-Normal ? ? [facility]st [facility] [place] : [address], [place] ? ? ? Protein Negative ? ? Byst U [facility] [place] : [address], [place] ? ? ? Nitrite negative ? ? Byst U cc [place] : [address], [place] ? ? ? Leukocytes Negative ? ? Bys t [facility] [place] : [address], [place] Past Encounters None recorded. Social [...]
--- OUTSIDE RECORDS SUMMARY | 2022-04-27 07:10 | XMS_ITS ---
:1960 Author Care Team Providers Name Role Phone Michael Malone Primary Care Provider Unavailable Allergies Code Code System Name Reaction Severity Status Onset 2670 RxNorm Codeine ? ? Active ? 184599 RxNorm Cogentin ? ? Active ? 420215 RxNorm Compazine ? ? Active ? 1793155 RxNorm Gluten ? ? Active ? 20291001 RxNorm Macrodantin ? ? Active ? Mandelamine ? ? Active ? 6046582 RxNorm Marcaine ? ? Active ? Quinolones [...]
--- NOTE | 2022-04-27 07:25 | ECG_ITS ---
Test Reason : CHEST PAIN Blood Pressure : / mmHG Vent. Rate : 082 BPM Atrial Rate : 082 BPM P-R Int : 194 ms QRS Dur : 100 ms QT Int : 362 ms P-R-T Axes : 079 -16 084 degrees QTc Int : 422 ms Normal sinus rhythm Left axis deviation Low voltage QRS Nonspecific ST abnormality Inferior leads Anteroseptal infarct , age undetermined Abnormal ECG No significant changes seen Referred By: Parker Hamilton Electronically Signed By:ZAIRA AYALA MD
[2022-04-27 07:39] VITALS: BP 106/71; PULSE 106; RESP 16; O2SAT 99
[2022-04-27 07:44] LABS: MANUAL DIFF FLAG NO
[2022-04-27 07:46] LABS: Basophils Percent Auto 0.3 % (0-2); Eosinophils Absolute Auto 0.1 X10*3/uL (0.0-0.4); Eosinophils Percent Auto 1.5 % (0-4); Hematocrit 37.8 % (37.0-47.0); Hemoglobin 11.9 g/dl (12.0-16.0); Imm Gran Abs Auto 0.04 X10*3/uL (0.00-0.03); Imm Gran Pct Auto 0.7 % (0.0-0.4); Lymphocytes Absolute Auto 0.5 X10*3/uL (1.2-4.9); Lymphocytes Percent Auto 8.5 % (20-40); Mean Corpuscular HGB Conc 31.5 g/dl (31.0-35.0); Mean Corpuscular Hemoglobin 28.1 pg (27.0-33.0); Mean Corpuscular Volume 89.4 fL (80.0-98.0); Mean Platelet Volume 9.5 fL (9.4-12.3); Monocytes Absolute Auto 0.6 X10*3/uL (0.1-1.2); Monocytes Percent Auto 9.1 % (2-11); Neutrophils Absolute Auto 4.8 x10*3/uL (2.0-8.3); Neutrophils Percent Auto 79.9 % (45-73); Platelet Count 257 X10*3/uL (160-400); Red Blood Count 4.23 X10*6/uL (4.20-5.50); Red Cell Distribution Width 12.8 % (11.0-16.0)
[2022-04-27] MEDS: ondansetron HCL 4 MG/2 ML VIAL IVPUSH (07:47)
[2022-04-27] MEDS: 0.9 % Sodium Chloride 1,000 ML 999 ML IVCONT ×2 (07:48→09:09)
--- NOTE | 2022-04-27 07:57 | PC.NURSE ---
Pt reporting ongoing b/l knee pain x1 yr worsening s/p COVID infection and awoke this AM with b/l elbow burning and substantial nausea without vomiting with constipation, weakness and fatigue and heart palpitations. Seen by PCP and Engraver Wood with interventions however no relief or unable to tolerate at home. No significant swelling to joints affected. Skin pink warm and dry. Pt NSR on monitor, HR 90s. Reports chest pressure this AM. Pt reports inability to function at home d/t pain. IV etsablished, labs drawn/sent and medicated as charted
[2022-04-27 08:10] LABS: Alanine Aminotransferase 16 U/L (0-31); Albumin Level 3.5 g/dL (3.5-5.0); Alkaline Phosphatase 56 U/L (39-117); Anion Gap 11 (12-20); Aspartate Amino Transferase 17 U/L (5-31); Bilirubin Direct < 0.2 mg/dL (0.0-0.5); Bilirubin Total 0.2 mg/dL (0.0-1.0); Blood Urea Nitrogen 25 mg/dL (9-16); Calcium 9.4 mg/dL (8.4-10.2); Carbon Dioxide 29 mmol/L (22-29); Chloride 104 mmol/L (96-108); Creatinine Clr Calc Pharmacy 65.5; Estimated Glomerular Filt Rate > 60; Glucose Random 121 mg/dL (60-115); Potassium 3.8 mmol/L (3.3-5.1); Sodium 140 mmol/L (135-145); Total Protein 5.7 g/dL (6.5-8.0)
[2022-04-27 08:17] LABS: Troponin-I High Sensitivity < 3.5 ng/L (<3.5-17.0)
[2022-04-27 09:11] VITALS: BP 114/68; PULSE 91; RESP 16; O2SAT 97
[2022-04-27] MEDS: Ketorolac Tromethamine 30 MG/ML VIAL IVPUSH (09:13)
--- NOTE | 2022-04-27 11:53 | PC.NURSE ---
Pt tearful, stating no one can give me an answer regarding my pain Stating she is unable to function at home, rehab offered, pt declined stating I dont want to go to rehab in a pandemic Pt reassured, case management to pea kto pt regarding other alternatives. Fluids complete. Pt attempting to call PCP States minimal pain relief s/p Toradol given
[2022-04-27] MEDS: Pantoprazole Sodium 40 MG/10 ML VIAL IVPUSH (11:59)
--- NOTE | 2022-04-27 13:32 | PC.NURSE ---
case management at bedside
[2022-04-27 14:29] VITALS: BP 112/71; PULSE 81; RESP 16; O2SAT 98
[2022-04-27] MEDS: Pregabalin 50 MG CAPSULE PO (14:29)
--- NOTE | 2022-04-27 14:36 | MHC.CM.ED ---
Received case management consult from Dr Hamilton. Patient came to the ER due to body aches, nausea/vomiting. Patient was requesting to be admitted due to intractable pain. Per Alex and Dr Martinez, inpatient admissions is not appropriate at this time. Met with patient in regards to discharge planning. Patient lives with her , Dr Franks. Patient has been using crutches/walker for mobility and had no services prior to coming to the hospital. Patient works at a [employer] at [employer]. Patient was diagnosed with Covid from a home test on 03/30. Patient has been having difficulty since then. Patient was also diagnosed with pneumonia at that time. Patient's PCP is Millicent Eden. Patient is very frustrated at this time because she doesn't feel like she has a diagnosis for why she is having such awful pain with bilateral knees and numbness radiating from her left knee to her left great toe. She is also having numbing pain on bilateral upper arms that have caused her to not be able to lift herself off of the toilet. Patient has been to the ER approximately 5 times with these symptoms and doesn't feel her concerns are taken seriously. She has only been offered Toradol for pain management. She states it doesn't help the pain and she shouldn't take it because she has a history of gastritis. Patient was given PO Dilaudid on 1 ER visit. It made her very dizzy. She took 1 half a dose at home and still felt dizzy. So she didn't take anymore. 1 ER visit recommended PO Prednisone. Her PCP and Dr Sanchez did not feel she should take the Prednisone, so she didn't. Patient doesn't feel her pain management is being appropriately addressed. Patient is unable to take Morphine or oxycodone because it causes her to have nausea/vomiting. Patient had an appointment with Dr Coombs for rheumatology. He wasn't able to provide a direct answer as to why patient is experiencing the symptoms she is. Patient is requesting Lyrica be increased. Dr Hamilton aware and increased Lyrica. Patient has been trying to contact her PCP about a follow up appointment without success. Patient also requesting pain management come see her in the ER. T/W explained pain management would have to be arranged outpatient. Patient has been active with [facility] physical therapy until 02/12/2022. Patient was also admitted to [facility] for acute rehab a couple of years ago. Multiple discharge options discussed including returning home with VNA or outpatient PT, and inpatient short term rehab. Patient tearful and doesn't feel any of these plans will be effective. Patient still trying to advocate for being admitted. T/W provided emotional support but explained admission couldn't be pursued with bio medical technician and head of hospitalist declining need for hospital admission. Patient would be willing to go home if 4 pronged cane and assisted device to help her get off the toilet. Waiting to Dr Franks to call T/W so discharge plans can be discussed, including increasing Lyrica dose, and obtaining a 4 pronged cane and assistive device for the toilet. Continue to monitor for d/c needs.
--- NOTE | 2022-04-27 16:35 | MHC.CM.ED ---
Received telephone call from Dr Franks. Conversation with patient and T/W explained. Dr Franks verbalized understanding. Patient already had someone transport her home and has an appointment with pain management tomorrow at 830am. Dr Franks will go to a medical supply store to obtain a 4 pronged cane and assistive device to help patient in the toilet. Continue to monitor for d/c needs.
== END 2022-04-27 15:38 | disposition home or self-care (01) ==
PROVIDERS: Emergency Provider Emergency Medicine; PCP Internal Medicine
DX: G62.9 Polyneuropathy, unspecified (principal); R53.1 Weakness; R50.9 Fever, unspecified; R00.0 Tachycardia, unspecified; R11.2 Nausea with vomiting, unspecified; T40.2X5A Adverse effect of other opioids, initial encounter; Y92.019 Unspecified place in single-family (private) house as the place of occurrence of the external cause; R63.6 Underweight; Z68.1 Body mass index [BMI] 19.9 or less, adult; Z79.899 Other long term (current) drug therapy
CPT/HCPCS: 36415; 71046; 80048; 80076; 84484; 85025; 93005; 96361; 96374; 96375; 99285; J1885; J2405

== ENCOUNTER → 2022-06-08 08:38 | Outpatient (BNVA) | payer BC, SELFPAY | PROVIDERS: PCP Internal Medicine; Visit Provider Internal Medicine Rheumatology | DX: Z13.89 Encounter for screening for other disorder (principal) ==

== ENCOUNTER → 2022-10-05 11:04 | Outpatient (BNVA) | payer BC, SELFPAY | PROVIDERS: PCP Internal Medicine; Visit Provider Internal Medicine Rheumatology ==

== ENCOUNTER 2023-02-06 15:33 | Emergency (ER) | payer BC, SELFPAY ==
--- NOTE | 2023-02-06 | ECG_ITS ---
Test Reason : CHEST PAIN Blood Pressure : / mmHG Vent. Rate : 087 BPM Atrial Rate : 087 BPM P-R Int : 158 ms QRS Dur : 130 ms QT Int : 410 ms P-R-T Axes : 093 -41 085 degrees QTc Int : 493 ms Normal sinus rhythm Left axis deviation Non-specific intra-ventricular conduction block Minimal voltage criteria for LVH, may be normal variant ( [place] product ) Cannot rule out Septal infarct (cited on or before 10-JUL-2020) Abnormal ECG When compared with ECG of 27-APR-2022 08:10, QRS duration has increased Questionable change in initial forces of Anterior leads Non-specific change in ST segment in Lateral leads QT has lengthened Referred By: Generic ED Physician Electronically Signed By:LAZARA WILCOX
--- NOTE | ~2023-02-06 | XR_ITS ---
EXAMINATION: XR CHEST CLINICAL INFORMATION: Chest pain. Shortness of breath. COMPARISON: Chest 04/27/2022. TECHNIQUE: 2 views of the chest were obtained. FINDINGS: Normal appearance of the cardiomediastinal structures. No effusions or pneumothoraces. Grossly normal pattern of pulmonary vasculature. No focal pulmonary consolidation. No thoracic vertebral body compression deformities identified. XR/XR chest 2V IMPRESSION: No acute cardiopulmonary abnormalities.
--- NOTE | ~2023-02-06 | US_ITS ---
EXAMINATION: US VENOUS ULTRASOUND WITH DOPPLER LOWER EXTREMITY, LEFT CLINICAL INFORMATION: Left lower extremity pain and coldness. COMPARISON: None available. TECHNIQUE: Ultrasound of the deep veins is performed from the hip to the calf with compression sonography and color and pulse Doppler assessment. Spectral analysis with color-flow imaging is performed. FINDINGS: There is normal venous compression and respiratory variation and augmented flow. The visualized common femoral vein, femoral vein, profunda femoral vein and popliteal vein, show no evidence of deep venous thrombosis. Evaluation of the deep calf veins is somewhat limited liver visualized deep veins in the calf demonstrate normal color flow. There is no significant popliteal fossa cyst. If the patient's symptoms persist, followup ultrasound in 5 days 7 days might be of value to exclude proximal propagation from a non-visualized calf vein. US/US venous duplex LE LT IMPRESSION: No DVT demonstrated in the left lower extremity, from popliteal veins to common femoral vein. Evaluation of the deep calf veins is somewhat limited.
--- NOTE | ~2023-02-06 | CT_ITS ---
EXAMINATION: CT HEAD WITHOUT CONTRAST CLINICAL INFORMATION: Headache COMPARISON: Report MRI brain 06/10/2009. TECHNIQUE: Contiguous axial imaging was performed from the skull base to vertex without intravenous administration of contrast. This CT examination was performed using dose optimization techniques as appropriate, variously including the following: *Automated exposure control *Adjustment of mA and/or kV according to patient size (this includes techniques or standardized protocols for targeted exams where dose is matched to indication/reason for exam; i.e. extremities or head) *Use of iterative reconstruction technique DLP: 643 mGy-cm FINDINGS: Mild diffuse commensurate prominence of ventricles and sulci is noted. No intrarenal hemorrhage, tumors or acute infarcts visualized. The orbits and globes are partially included in the image [id number] and demonstrate no abnormalities. No significant opacification of the visualized paranasal sinuses, mastoid air cells and middle ear cavities. Segmental calcific atherosclerotic plaques are present in the cavernous portions of the internal carotid arteries. CT/CT head/brain wo IV con IMPRESSION: No acute intracranial abnormalities.
--- NOTE | ~2023-02-06 | US_ITS ---
EXAMINATION: Left LOWER EXTREMITY DUPLEX CLINICAL INFORMATION: Left lower extremity pain and coldness COMPARISON: None TECHNIQUE: Real-time ultrasound and Doppler techniques (integrating B-mode 2-D vascular images, Doppler spectral analysis and color flow Doppler imaging) were utilized to interrogate the lower extremities. FINDINGS: LEFT LEG: Common femoral artery: 218 cm/s, triphasic Profunda femoris artery: 142 cm/s, triphasic Superficial femoral artery (proximal): 113 cm/s, triphasic Superficial femoral artery (mid): 123 cm/s, triphasic Superficial femoral artery (distal): 83 cm/s, triphasic Popliteal artery: 69 cm/s, biphasic Posterior tibial artery: 34 cm/s, biphasic US/US arterial duplex LE LT IMPRESSION: 1. Patent left lower extremity arteries. 2. Elevated velocity in the common femoral artery is favored to be artifactual due to aliasing as the waveform is triphasic and there is no significant plaque visualized. Otherwise no evidence of hemodynamically significant stenosis.
[2023-02-06 16:07] VITALS: BP 131/75; PULSE 93; RESP 16; O2SAT 100; BMI 19.5
--- OUTSIDE RECORDS SUMMARY | 2023-02-06 16:26 | XMS_ITS | Continuity of Care Document ---
Author Name Unknown Organization [facility] Address [address] [facility] [place] [address]- Care Team Providers Care Flow Specialist Name Role Phone Nancy Eden MD, Millicent Primary Care Phys ician Encounter 11/17/22 - 12/21/22 [facility] [place] [address] [facility], [address] [place] [address]- Attending Physician: Wale Nguyen MD Admitting Physician: Wale Nguyen MD Referring Physician: Wale Nguyen MD Allergies, Adverse Reactions, Alerts Substance Reaction Severity Status ciprofloxacin 1 Active sulfa drugs Active quinolone antibiotics 2 Peripheral neuropathy Active Macrodantin rash Active Cogentin double vision, migraine Acti ve Bee Stings Active Contrast Dye 3 Active Glutens malabsorption Active shellfish Active Compazine Active Mandelamine Active 1 All Quinolones 2Patient reports 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 Patient reported being on prednisone when this reaction occured. 3pt reports allergy to iv contrast - back of throat itchy and upper lip feels numb and tingling Immunizations Not Given Vaccine Date Status Refusal Reason influenza virus vaccine, inactivated 1 03/13/21 No t Given Patient Refuses influenza virus vaccine, inactivated 2 07/11/20 No t Given Patient Refuses influenza virus vaccine, inactivated 09/04/13 Not Given Patient Refuses pneumococcal 23-valent vaccine 3 07/11/20 Not Give n Patient Refuses pneumococcal 23-valent vaccine 11/03/18 Not Given Patient Refuses 1Result Comment: DOESNT WANT RIGHT NOW 2Result Comment: pt stated hx of reaction to vaccine last year, refused vaccine today 3Result Comment: pt educated but refused vaccine today Medications albuterol 0.083% inhalation solution 1 vial, Neb, Every 4 hours, PRN Wheezing/Shortness of Breath Start Date: 11/02/18 Status: Ordered betamethasone-clotrimazole 0.05%-1% topical lotion 1 application, Topically, 2 times a day, PRN as needed, Maintenance, 03/12/21 21:02:00 EDT, Lotion,Partial fill upon patient request if the prescription is for a schedule II opioid drug. Start Date: 03/12/21 Status: Ordered clobetasol 0.05% topical cream 1 application, Topically, 2 times a day, PRN as needed, Maintenance, 03/12/21 21:01:00 EDT, Cream, Partial fill upon patient request if the prescription is for a schedule II opioid drug. Start Date: 03/12/21 Status: Ordered lidocaine 5% topical film 1 patch, Topically, Daily, # 30 patch, 0 Refills, Maintenance, 03/14/21 9:06:00 EDT, Patch, Partialfill upon patient request if the prescription is for a schedule II opioid drug. Start Date: 03/14/21 Status: Ordered LORazepam 0.5 mg oral tablet 0.5 tablet = 0.25 mg, By Mouth, Once, 0 Refills, Maintenance, 08/04/22 15:44:00 EST, Tablet, Partial fill upon patient request if the prescription is for a schedule II opioid drug. Start Date: 08/04/22 Status: Ordered Lyrica 25 mg oral capsule 1 capsule = 25 mg, By Mouth, Daily, 0 Refills, Maintenance, 08/04/22 15:45:00 EST, Capsule, Partialfill upon patient request if the prescription is for a schedule II opioid drug. Start Date: 08/04/22 Status: Ordered Motrin Tablet 400 mg, By Mouth, Every 6 hours, PRN, Refills 0, Maintenance, Pain , Mild, 03/12/21 19:10:00 EDT, Partial fill upon patient request if the prescription is for a schedule II opioid drug. Start Date: 03/12/21 Status: Ordered nortriptyline 10 mg oral capsule 10 mg, 1, capsule, By Mouth, Daily at bedtime, may increase to 20 mg to maximize control, # 30 capsule, Refills 0, Tot. Refills 0, Maintenance, 03/14/21 9:06:00 EDT, Print Requisition, Partial fill upon patient request if the prescription is for a dustin... Start Date: 03/14/21 Status: Ordered ProAir HFA 90 mcg/inh inhalation aerosol with adapter 2, puffs, Inhalation, Every 6 hours, PRN Start Date: 11/02/18 Status: Ordered Problem List Condition Confirmation Course Effective Dates Status Health St [facility]us Informant CELIAC DISEASE Confirmed Active GENERALIZED ANXIETY DISORDER Confirmed Active History of COVID-19 Confirmed Active IVCD (intraventricular conduction defect) Confirmed Active Palpitations Confirmed Active Underweight Confirmed Active Social History Social History Type Response Smoking Status Never smoker entered on: 10/23/14 Sex Patient Care team information Care Team Personnel Name: Jessie Augustin Position: [facility] Outreach Member Role: Lifetime Consulting Physician Name: Paulo Patterson RN Position: [facility] RN Member Role: Primary Care Nurse Name: Millicent Lugo MD Position: Reference Physician Member Role: PCP Address: Address: [address] [place] [address] Name: Tara Milian RN Position: [facility] RN Member Role: Primary Care Nurse Care Team Related Persons Name: ZAYNAB GERARDO Address: [facility] Name: AYAAN EPPS Name: LAZARA CASANOVA Address: home [address] [place] [address] Name: RASHEEDA LIZARRAGA Address: home [address] [place] [address]
--- OUTSIDE RECORDS SUMMARY | 2023-02-06 16:26 | XMS_ITS | Continuity of Care Document ---
Author Name Unknown Organization [facility] Address [address] [place] [id number]- Care Team Providers Care Manager Environmental Name Role Phone Nancy Eden MD, Millicent Primary Care Phys ician Encounter [facility] [place] Date(s): 12/24/22 - 12/31/22 [facility] [address] [address]- Attending Physician: Esau Hardy MD Allergies, Adverse Reactions, Alerts Substance Reaction Severity Status ciprofloxacin 1 Active sulfa drugs Active quinolone antibiotics 2 Peripheral neuropathy Active shellfish Active Macrodantin rash Active Cogentin double vision, migraine Acti ve Compazine Active Mandelamine Active Bee Stings Active Contrast Dye 3 Active Glutens malabsorption Active 1 All Quinolones 2Patient reports severe [...] Care Team Personnel Name: Jessie Augustin Position: [facility] Outreach Member Role: Lifetime Consulting Physician Name: Paulo Patterson RN Position: [facility] RN Member Role: Primary Care Nurse Name: Nnacy Eden MD, Millicent Position: Reference Physician Member Role: PCP Address: Address: [address] [place] [address] [facility] [place], [place] [address] Name: Tara Milian RN Position: [facility] RN Member Role: Primary Care Nurse Care Team Related Persons Name: ZAYNAB GERARDO Address: [facility] Name: AYAAN EPPS Name: LAZARA CASANOVA Address: [address] [place] [address] Name: RASHEEDA LIZARRAGA Address: [address] [place] [address]
--- OUTSIDE RECORDS SUMMARY | 2023-02-06 16:26 | XMS_ITS | Continuity of Care Document ---
Author Name Unknown Organization [facility] Address [address] [place] [id number]- Care Team Providers Care Street Supervisor Name Role Phone Nancy Eden MD, Millicent Primary Care Phys ician Encounter [facility] [place] Date(s): 12/24/22 - 01/23/23 [facility] [address] [place] [address]- Attending Physician: Zohreh Khan Admitting Physician: Zohreh Khan Referring Physician: AdmtrZohreh Allergies, Adverse Reactions, Alerts Substance Reaction Severity Status ciprofloxacin 1 Active sulfa drugs Active quinolone antibiotics 2 Peripheral neuropathy Active shellfish Active Cogentin double vision, migraine Acti ve Bee Stings Active Contrast Dye 3 Active Glutens malabsorption Active Macrodantin rash Active Compazine Active Mandelamine Active 1 All Quinolones 2Patient reports 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 Patient reported being on prednisone when this reaction occured. 3pt reports allergy to iv contrast - back of throat itchy and upper lip feels numb and tingling Medications albuterol 0.083% inhalation solution 1 vial, [...] Care Team Personnel Name: Jessie Augustin Position: [facility] Outreach Member Role: Lifetime Consulting Physician Name: Paulo Patterson RN Position: S RN Member Role: Primary Care Nurse Name: Millicent Lugo MD Position: Reference Physician Member Role: PCP Address: Address: [address] [place] [address] [place], [place] [address] Name: Tara Milian RN Position: [facility] RN Member Role: Primary Care Nurse Care Team Related Persons Name: ZAYNAB GERARDO Address: [facility] Name: AYAAN EPPS Name: LAZARA CASANOVA Address: [address] [place] [address] Name: RASHEEDA LIZARRAGA Address: [address] [place] [address]
--- NOTE | 2023-02-06 16:50 | PC.NURSE ---
pt reports L. leg/foot pain x 1 wk worse last night. L. leg swelling noted; cool to touch; slightly discolored which improves with elevation. +pedal pulses ble. strength equal ble. pt also states intermittent dizziness/feeling whoozy. +covid 01/28/23. neuros intact. respirations even and unlabored. nsr on monitor with ?elevated t waves. pt denies cp/sob/n/v/d however states intermittent chest tightness. lung sounds cta. awaiting primary eval by ed provider. ekg obtained. call gooden within reach.
[2023-02-06 18:02] VITALS: BP 116/70; PULSE 109; RESP 16; O2SAT 98
--- NOTE | 2023-02-06 18:02 | ED_ITS ---
HPI - General Adult General Chief complaint: General Medical Stated complaint: Foot pain/Dizziness Time Seen by Provider: 02/06/23 17:23 Source: patient and RN notes reviewed Mode of arrival: ambulatory Limitations: no limitations History of Present Illness HPI narrative: This is a 62-year-old female, with a past medical history of celiac sprue and asthma presenting to emergency department for evaluation of lower extremity problems x 1 week. Patient reports that she has had left foot pain and left leg pain that is cool to the touch. She reports endorses some swelling from her mid thigh distally, worsening last night. She states that she notices discoloration to in her left lower extremity, worsening with walking. Patient denies any recent trauma or injury to her foot. She states that she does develop wooziness and dizziness when the pain is severe as well as headaches. She reports that she tested positive for COVID last week. She denies any chest pain. She denies shortness abdominal pain, nausea, vomiting or diarrhea. Denies any other complaints or concerns at this time MD complaint: foot pain, coldness in LLE Pain Consistency: constant Relieving factors: none Exacerbating factors: none Associated symptoms: denies other symptoms Treatments prior to arrival: none Related Data Home Medications Medication Instructions Recorded Confirmed albuterol sulfate 90 mcg/actuation 2 puff inhalation Q4-6H PRN 04/07/22 06/08/22 aerosol inhaler Previous Rx's Medication Instructions Recorded lorazepam 0.5 mg tablet (Ativan) 0.5 mg PO TID PRN anxiety #7 tabs 04/23/22 pregabalin 25 mg capsule (Lyrica) 25 mg PO DAILY #14 caps 04/23/22 ondansetron 4 mg disintegrating 4 mg PO Q8H PRN nausea and 04/25/22 tablet vomiting #7 tabs methylprednisolone 4 mg tablets in 4 mg PO DAILY #21 ea 02/06/23 a dose pack (Medrol (Addison)) Allergies Allergy/AdvReac Type Severity Reaction Status Date / Time gluten [Gluten] Allergy Severe PT HAS Verified 02/18/23 09:12 CELIAC DISEASE Sulfa (Sulfonamide Allergy Severe LUPUS-LIKE Verified 02/18/23 09:12 Antibiotics) benztropine [Cogentin] Allergy Intermediate Rash Verified 02/18/23 09:12 ciprofloxacin [From Cipro] Allergy Intermediate TENDONOPATH Verified 02/18/23 09:12 Y/NEUROPATH Y shellfish derived Allergy Intermediate Hives Verified 02/18/23 09:12 promethazine Allergy Unknown Unknown Verified 02/18/23 09:12 nitrofurantoin AdvReac Severe Drug Verified 02/18/23 09:12 [From Macrodantin] induced Hep Mandelamine Allergy Intermediate Drug Uncoded 02/18/23 09:12 induced Hep QUINOLONES Allergy Intermediate Unknown Uncoded 02/18/23 09:12 Review of Systems 2 Review of Systems: Yes all other systems are reviewed and are negative Constitutional: Constitutional: Reports as per HPI [facility] Past Medical History Medical History Cough Pneumonia Post-COVID chronic cough Neuropathy Asthma Diverticulosis Kidney stone Celiac sprue Surgical History H/O cystoscopy S/P cardiac cath (~07/2020) Hx of excision of mass (~1999) Family History Family History Mother Cervical cancer Uterine cancer History of thyroid disorder Maternal Grandmother Diabetes Stroke Maternal Grandfather Diabetes Coronary artery disease Paternal Grandmother Uterine cancer Diabetes Stroke Paternal Grandfather Stroke Father Bladder cancer Social History Social History Household Members: Spouse Household Members Other:: Son Alcohol intake: never Patient Tobacco Use Status: Never used Tobacco 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[employer] Physical Exam ED Vital Signs: Vital Signs - 24 hr 02/06/23 16:07 02/06/23 18:02 02/06/23 21:13 Temperature Pulse Rate 93 109 H 78 Respiratory Rate 16 16 Blood Pressure 131/75 116/70 95/53 L Pulse Oximetry 100 98 95 Oxygen Delivery Method Room Air Room Air 02/06/23 23:30 Temperature 98.5 F Pulse Rate 83 Respiratory Rate 16 Blood Pressure 99/50 L Pulse Oximetry 99 Oxygen Delivery Method Room Air BMI result Body Mass Index 19.5 Const General: cooperative, comfortable and no acute distress Orientation/consciousness: patient oriented x3 Limitations: no limitations HENMT Head: Yes normal to inspection, Yes normocephalic and Yes atraumatic Ears: hearing grossly normal bilaterally General nose exam: Normal external nose present Face and sinus: Yes normal facial exam Mouth: Normal oral and palatal mucosa present, oropharynx normal and moist mucous membranes Throat: Yes posterior oropharynx normal Eyes General: appearance normal, both eyes and all related structures Eyelids: Yes eyelids normal Conjunctivae: conjunctivae normal Sclerae: sclerae normal Pupils: Equal, round and reactive pupils present EOM: EOMs intact bilaterally Neck Neck: Yes normal visual inspection, Yes full ROM and Yes no lymphadenopathy Lymphatic: no lymphadenopathy noted Chest Chest palpation & inspection: normal inspection of the chest Resp Effort & Inspection: normal respiratory effort and able to speak in complete sentences Auscultation: clear to auscultation bilaterally, no crackles, no rales, no rhonchi and no wheezes Cardio Rate: regular rate Rhythm: regular rhythm Heart sounds: S1 normal heart sound present and S2 normal heart sound present GI Inspection: Yes normal to inspection Skin General skin exam: no rashes or lesions noted Trauma: no lacerations or abrasions Wounds: no wounds Neuro General: patient oriented x3 and moves all extremities Cranial nerves: Yes Equal, round and reactive pupils present Extrem Other: BL lower extremities are well perfused without any overlying skin changes. Left leg cooler to the touch than right. Capillary refill less than 2 seconds. No calf tenderness noted bilaterally. General: Yes normal to inspection Right upper extremity: normal to inspection Left upper extremity: normal to inspection Course Reevaluation(s) Reevaluation #1: Patient was seen and evaluated by Dr. Andrews given negative workup. It is unclear what is causing patient to have the symptoms but patient's workup today was reassuring. Advised follow-up with primary care physician on Wednesday for her symptoms and further treatment. Patient discharged on a Medrol Dosepak. Advised to return with any new or worsening symptoms occur. Patient understands and agrees with plan. Patient stable for discharge Medications Administered Discontinued Medications Generic Name Dose Route Start Last Admin Trade Name Denzelq PRN Reason Stop Dose Admin Acetaminophen 975 mg 02/06/23 18:09 02/06/23 18:24 Acetaminophen 325 Mg Tablet PO 02/06/23 18:10 975 mg ONCE ONE Administration Ketorolac Tromethamine 30 mg 02/06/23 21:36 02/06/23 21:58 Ketorolac Tromethamine 30 Mg/Ml Vial IM 02/06/23 21:37 30 mg ONCE ONE Administration Lorazepam 0.5 mg 02/06/23 18:02/06/23 18:24 Lorazepam 0.5 Mg Tablet PO 02/06/23 18:10 0.5 mg ONCE ONE Administration Ondansetron HCl 4 mg 02/06/23 18:02/06/23 18:24 Ondansetron Odt 4 Mg Tab.Janet KINGSTONU 02/06/23 18:10 4 mg ONCE ONE Administration Medical Decision Making Medical Decision Making [facility] Narrative: 62-year-old female presenting to the emergency department for evaluation of left foot and discoloration x1 week, worsening over the last 2 days.. On arrival, vital signs within normal limits. Patient is nontoxic appearing. Given discoloration and pain to lower extremity with left calf pain, will obtain ultrasound venous and arterial to rule DVT versus arterial occlusion. Extremities cool to the touch but is well perfused. DP pulses 2+. Sensation is intact. Patient also endorsing headache, patient is fully neurologically intact. Plan: Labs, EKG, CT head, chest x-ray, ultrasound Differential Diagnosis Differential Diagnoses: The differential diagnosis associated with the presentation includes Arterial occlusion, DVT, venous insufficiency Admission/Observation Consideration of admission/observation: Escalation of care including admission/observation considered Patient would have been admitted to the hospital had her work up had any findings where hospital admission was appropriate and her clinical presentation warranted hospital admission. Lab Data [facility] Lab Attestation statement: I reviewed the patient's lab results. No leukocytosis, Normocytic anemia noted. Troponin x1 negative. 02/06/23 18:02/06/23 18:06 Labs: Lab Results 02/06/23 02/06/23 Range/Units 18:06 21:00 WBC 5.5 (4.8-10.8) X10*3/uL RBC 4.10 L (4.20-5.50) X10*6/uL Hgb 11.9 L (12.0-16.0) g/dl Hct 36.2 L (37.0-47.0) % MCV 88.3 (80.0-98.0) fL MCH 29.0 (27.0-33.0) pg MCHC 32.9 (31.0-35.0) g/dl RDW 12.4 (11.0-16.0) % Plt Count 204 (160-400) X10*3/uL MPV 10.9 (9.4-12.3) fL Immature Gran % (Auto) 0.2 (0.0-0.4) % Neut % (Auto) 65.9 (45-73) % Lymph % (Auto) 24.2 (20-40) % [place] % (Auto) 7.5 (2-11) % Eos % (Auto) 1.5 (0-4) % Baso % (Auto) 0.7 (0-2) % Lymph # (Auto) 1.3 (1.2-4.9) X10*3/uL [place] # (Auto) 0.4 (0.1-1.2) X10*3/uL Eos # (Auto) 0.1 (0.0-0.4) X10*3/uL Baso # (Auto) 0.0 (0.0-0.2) X10*3/uL Abs Immat Gran (auto) 0.01 (0.00-0.03) X10*3/uL Absolute Neuts (auto) 3.6 (2.0-8.3) x10*3/uL Absolute Nucleated RBC 0.000 (0.0-0.012) X10*3/uL Nucleated RBC % (auto) 0.0 (0.0-0.2) /100WBC Sodium 142 (135-145) mmol/L Potassium 3.3 (3.3-5.1) mmol/L Chloride 106 (96-108) mmol/L Carbon Dioxide 26 (22-29) mmol/L Anion Gap 13 (12-20) BUN 18 H (9-16) mg/dL Creatinine 0.64 (0.5-1.4) mg/dL Estim Creat Clear Calc 64.4 Estimated GFR > 60 Random Glucose 105 (60-115) mg/dL Calcium 10.0 D (8.4-10.2) mg/dL Magnesium 2.2 (1.6-2.6) mg/dL Total Bilirubin 0.4 (0.0-1.0) mg/dL Direct Bilirubin 0.2 (0.0-0.5) mg/dL AST 21 (5-31) U/L ALT 14 (0-31) U/L Alkaline Phosphatase 55 (39-117) U/L Troponin I High Sens < 2.7 (<3.5-17.0) ng/L B-Natriuretic Peptide 26 (<100) pg/mL Total Protein 7.0 (6.5-8.0) g/dL Albumin 4.5 (3.5-5.0) g/dL Influenza Type A (PCR) NEGATIVE (Negative) Influenza Type B (PCR) NEGATIVE (Negative) RSV RNA Qual (PCR) NEGATIVE (Negative) SARS-CoV-2 RNA (RT-PCR) NEGATIVE (Negative) Radiology Impression Discussion of test interpretation with radiology: I have reviewed the radiologist's reading. Radiologist Impression: EXAMINATION: US VENOUS ULTRASOUND WITH DOPPLER LOWER EXTREMITY, LEFT CLINICAL INFORMATION: Left lower extremity pain and coldness. COMPARISON: None available. TECHNIQUE: Ultrasound of the deep veins is performed from the hip to the calf with compression sonography and color and pulse Doppler assessment. Spectral analysis with color-flow imaging is performed. FINDINGS: There is normal venous compression and respiratory variation and augmented flow. The visualized common femoral vein, femoral vein, profunda femoral vein and popliteal vein, show no evidence of deep venous thrombosis. Evaluation of the deep calf veins is somewhat limited liver visualized deep veins in the calf demonstrate normal color flow. There is no significant popliteal fossa cyst. If the patient's symptoms persist, followup ultrasound in 5 days 7 days might be of value to exclude proximal propagation from a non-visualized calf vein. US/US venous duplex LE LT IMPRESSION: No DVT demonstrated in the left lower extremity, from popliteal veins to common femoral vein. Evaluation of the deep calf veins is somewhat limited. Dictated By: Alysha Murillo MD EXAMINATION: Left LOWER EXTREMITY DUPLEX CLINICAL INFORMATION: Left lower extremity pain and coldness COMPARISON: None TECHNIQUE: Real-time ultrasound and Doppler techniques (integrating B-mode 2-D vascular images, Doppler spectral analysis and color flow Doppler imaging) were utilized to interrogate the lower extremities. FINDINGS: LEFT LEG: Common femoral artery: 218 cm/s, triphasic Profunda femoris artery: 142 cm/s, triphasic Superficial femoral artery (proximal): 113 cm/s, triphasic Superficial femoral artery (mid): 123 cm/s, triphasic Superficial femoral artery (distal): 83 cm/s, triphasic Popliteal artery: 69 cm/s, biphasic Posterior tibial artery: 34 cm/s, biphasic US/US arterial duplex LE LT IMPRESSION: 1. Patent left lower extremity arteries. 2. Elevated velocity in the common femoral artery is favored to be artifactual due to aliasing as the waveform is triphasic and there is no significant plaque visualized. Otherwise no evidence of hemodynamically significant stenosis. Dictated By: Enrique Dumont MD Discharge Plan Discharge Clinical Impression: Left leg pain, Discoloration of skin of lower leg Patient Disposition: Home, Self-Care Additional Instructions: Is unclear what is causing you to have your symptoms today. Your venous ultrasound did not show any DVTs. Your arterial ultrasound did not show any occlusion. Your labs were reassuring. You tested negative for COVID, RSV, flu. Your chest x-ray was normal. Your head CT was normal. Please take prescribed medication as directed. Avoid NSAIDs while taking steroids. You may take Tylenol as needed for pain. Follow-up with your primary care physician regarding this visit for additional referrals and further management of your pain. If any new or worsening symptoms occur, please return for re-evaluation. Prescriptions: New methylprednisolone [Medrol (Addison)] 4 mg tablets,dose pack 4 mg PO DAILY Qty: 21 0RF No Action pregabalin [Lyrica] 25 mg capsule 25 mg PO DAILY Qty: 14 0RF lorazepam [Ativan] 0.5 mg tablet 0.5 mg PO TID PRN (Reason: anxiety) Qty: 7 0RF ondansetron 4 mg tablet,disintegrating 4 mg PO Q8H PRN (Reason: nausea and vomiting) Qty: 7 0RF albuterol sulfate 90 mcg/actuation HFA aerosol inhaler 2 puff inhalation Q4-6H PRN Interventions: ED Discharge Assessment Last Done: 02/06/23 23:35 Discharge Date/Time: 02/06/23 23:35
[2023-02-06] MEDS: LORazepam 0.5 MG TABLET PO (18:24)
[2023-02-06] MEDS: Acetaminophen 325 MG TABLET 975 MG PO (18:24)
[2023-02-06] MEDS: Ondansetron ODT 4 MG TAB.RAPDIS TRANSLINGU (18:24)
[2023-02-06 18:50] LABS: MANUAL DIFF FLAG NO
[2023-02-06 19:09] LABS: Alanine Aminotransferase 14 U/L (0-31); Albumin Level 4.5 g/dL (3.5-5.0); Alkaline Phosphatase 55 U/L (39-117); Anion Gap 13 (12-20); Aspartate Amino Transferase 21 U/L (5-31); Bilirubin Direct 0.2 mg/dL (0.0-0.5); Bilirubin Total 0.4 mg/dL (0.0-1.0); Blood Urea Nitrogen 18 mg/dL (9-16); Carbon Dioxide 26 mmol/L (22-29); Chloride 106 mmol/L (96-108); Creatinine Clr Calc Pharmacy 64.4; Estimated Glomerular Filt Rate > 60; Glucose Random 105 mg/dL (60-115); Magnesium 2.2 mg/dL (1.6-2.6); Potassium 3.3 mmol/L (3.3-5.1); Sodium 142 mmol/L (135-145)
[2023-02-06 19:14] LABS: B Type Natriuretic Peptide 26 pg/mL (<100)
[2023-02-06 19:15] LABS: Basophils Percent Auto 0.7 % (0-2); Eosinophils Absolute Auto 0.1 X10*3/uL (0.0-0.4); Eosinophils Percent Auto 1.5 % (0-4); Hematocrit 36.2 % (37.0-47.0); Hemoglobin 11.9 g/dl (12.0-16.0); Imm Gran Abs Auto 0.01 X10*3/uL (0.00-0.03); Imm Gran Pct Auto 0.2 % (0.0-0.4); Lymphocytes Absolute Auto 1.3 X10*3/uL (1.2-4.9); Lymphocytes Percent Auto 24.2 % (20-40); Mean Corpuscular HGB Conc 32.9 g/dl (31.0-35.0); Mean Corpuscular Volume 88.3 fL (80.0-98.0); Mean Platelet Volume 10.9 fL (9.4-12.3); Monocytes Absolute Auto 0.4 X10*3/uL (0.1-1.2); Monocytes Percent Auto 7.5 % (2-11); Neutrophils Absolute Auto 3.6 x10*3/uL (2.0-8.3); Neutrophils Percent Auto 65.9 % (45-73); Platelet Count 204 X10*3/uL (160-400); Red Cell Distribution Width 12.4 % (11.0-16.0); White Blood Count 5.5 X10*3/uL (4.8-10.8)
[2023-02-06 19:17] LABS: Troponin-I High Sensitivity < 2.7 ng/L (<3.5-17.0)
[2023-02-06 21:13] VITALS: BP 95/53; PULSE 78; O2SAT 95
[2023-02-06 21:43] LABS: Influenza A PCR NEGATIVE (Negative); Influenza B PCR NEGATIVE (Negative); Resp Syncy Virus RNA Qual PCR NEGATIVE (Negative); SARS COV2 PCR INHOUSE NEGATIVE (Negative)
[2023-02-06] MEDS: Ketorolac Tromethamine 30 MG/ML VIAL IM (21:58)
[2023-02-06 23:30] VITALS: BP 99/50; PULSE 83; RESP 16; TEMP 36.9; O2SAT 99
--- NOTE | 2023-02-06 23:35 | PC.NURSE ---
pt ambulatory at discharge. pt at bedside. pt calm and cooperative. pt provided with discharge packet. pt verbalized 3/10 pain at discharge. pt verbalized understanding of discharge plan
== END 2023-02-06 23:35 | disposition home or self-care (01) ==
PROVIDERS: Physician Assistant Medical; Emergency Provider Emergency Medicine; PCP Internal Medicine
DX: M79.662 Pain in left lower leg (principal); L81.8 Other specified disorders of pigmentation; R51.9 Headache, unspecified; R07.9 Chest pain, unspecified; Z20.822 Contact with and (suspected) exposure to COVID-19; Z20.828 Contact with and (suspected) exposure to other viral communicable diseases; Z79.899 Other long term (current) drug therapy
CPT/HCPCS: 0241U; 36415; 70450; 71046; 80048; 80076; 83735; 83880; 84484; 85025; 93005; 93926; 93971; 96372; 99284; 99285; J1885

== ENCOUNTER 2023-02-18 08:58 | Outpatient (AMB) | payer BC, SELFPAY ==
[2023-02-18 09:07] VITALS: BMI 19.5
--- NOTE | 2023-02-18 09:07 | MHC.OFFVIS ---
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 Started 3 years ago s/p knee surgery, worse when in a sitting position. Compression socks make her legs worse. Accompanied by: Self / Same As Patient Allergies gluten [Gluten] Allergy (Severe, Verified 02/18/23 09:12) PT HAS CELIAC DISEASE Sulfa (Sulfonamide Antibiotics) Allergy (Severe, Verified 02/18/23 09:12) LUPUS-LIKE benztropine [Cogentin] Allergy (Intermediate, Verified 02/18/23 09:12) Rash ciprofloxacin [From Cipro] Allergy (Intermediate, Verified 02/18/23 09:12) TENDONOPATHY/NEUROPATHY shellfish derived Allergy (Intermediate, Verified 02/18/23 09:12) Hives promethazine Allergy (Unknown, Verified 02/18/23 09:12) Unknown nitrofurantoin [From Macrodantin] Adverse Reaction (Severe, Verified 02/18/23 09:12) Drug induced Hep Mandelamine Allergy (Intermediate, Uncoded 02/18/23 09:12) Drug induced Hep QUINOLONES Allergy (Intermediate, Uncoded 02/18/23 09:12) Unknown HPI 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 In particular her complaints more focus on the left lower extremity. She notices a discoloration and reports that it is a ?tourniquet leg feeling? on that left lower extremity at times. Her toes turned purple and blue at times. 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 There are times that she has difficulty even standing throughout the day at work. Upon discussion with her she is a nondiabetic nonsmoker and limits caffeine intake to a cup to a cup and a half of coffee daily. She now presents to us for vascular evaluation. [facility] Medical History Cough Pneumonia Post-COVID chronic cough Neuropathy Asthma Diverticulosis Kidney stone Celiac sprue Surgical History H/O cystoscopy S/P cardiac cath (~07/2020) Hx of excision of mass (~1999) Family History Mother Cervical cancer Uterine cancer History of thyroid disorder Maternal Grandmother Diabetes Stroke Maternal Grandfather Diabetes Coronary artery disease Paternal Grandmother Uterine cancer Diabetes Stroke Paternal Grandfather Stroke Father Bladder cancer Social History Household Members: Spouse Household Members Other:: Son Alcohol intake: never Patient Tobacco Use Status: Never used Tobacco 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[employer] Review of Systems Const All systems reviewed & are unremarkable except as noted in HPI and below Reports no additional complaints ENT Reports Normal hearing present Card Denies chest pain Resp Reports no additional complaints GI Reports no additional complaints Reports no additional complaints Musc Reports muscle cramps and Reports radiating pain into limb (Left leg) Skin/Breast Denies skin ulcer and Denies wounds Neuro Reports Normal hearing present Psych Reports no additional complaints Physical Exam Vital Signs: BMI result Body Mass Index 19.5 Const General: cooperative, healthy appearing and comfortable Orientation/consciousness: oriented to person, oriented to place and oriented to time HEENT Head: Yes normal to inspection Neck Neck: Yes normal visual inspection Resp Effort & Inspection: normal respiratory effort and able to speak in complete sentences Cardio Other: Bilateral palpable DP pulses Peripheral pulses: Peripheral pulses 2+ throughout Skin Wounds: no wounds Hair: normal Neuro General: oriented to person, oriented to place and oriented to time Cranial nerves: Yes CN's II-XII intact bilaterally and Yes Normal hearing present Cognition (Neuro): normal cognition Motor exam (neuro): 5/5 motor strength present throughout Extrem Other: venous exam: No significant superficial varicosities or spider telangiectasias, minimal edema Mild discoloration of right great toe, left digits 2 through 5 some mild discoloration as well. In general foot was cool. Motor and sensation intact Palpable DP pulses bilateral General: No clubbing, No cyanosis and No edema Psych Appearance: grossly normal Mental Status: mental status grossly normal Speech and movement: Normal speech and movement present Results Reviewed Results Reviewed: Arterial duplex 02/06/2023 - no significant disease Venous duplex 02/06/2023 - no evidence of DVT left lower extremity Assessment & Plan Assessment & Plan (1) Varicose veins of left lower extremity with inflammation: Code(s): I83.12 - Varicose veins of left lower extremity with inflammation Plan: Unclear the etiology of left lower extremity discomfort. There is some mild swelling and discoloration of the digits. Motor and sensation intact. Arterial testing was within normal limits and she is negative for DVT. I have taken the liberty of ordering venous insufficiency testing to rule that out. This might help with the swelling but would not explain the discoloration of digits and the tightening in the left thigh. There may be a neurogenic component to this as well. I do feel that she does have an element of Raynaud's as well. She has been scheduled for venous insufficiency testing and she will follow up with us after that. (2) Raynauds disease: Code(s): I73.00 - Raynaud's syndrome without gangrene Plan: In short the patient may have an element of Raynaud's syndrome. I have discussed the pathophysiology with the patient, inclusive of spasming of the vessels and change in color of digits from white, red, and blue. We have discussed prevention inclusive of protection hand and feet at all times, reduction of caffeine intake, and reduction of stressors. At the current time the she appears to be stable. Should this persist may need follow-up with Rheumatology and use a calcium channel tavon. The patient will follow up with us regarding venous insufficiency and we will reassess at that time. Thank you for allowing us to assist in her care. The patient had an opportunity to ask questions regarding the treatment plan. All questions were answered. Imaging studies, laboratory studies and physical exam results were discussed and reviewed in detail. No major barriers to understanding were identified. The patient expressed understanding and agreement with the above treatment plan. The patient is aware they should contact our office by phone for worsening of the current condition or the appearance of new symptoms. Thank you for allowing me to participate in the vascular care of this patient. If you have any questions or concerns regarding the treatment for the above condition please do not hesitate to contact me. The office telephone contact is [phone]. This note is constructed using voice recognition software. While every effort has been made to ensure accuracy, paste plant supervisor errors may have been included. Thank you for allowing me to participate in the care of your patient. Yours sincerely, Lucas Enriquez MD, FACS, R.P.V.I.. Coding Level of Care Code New Pt Level 4 (24256) Diagnoses Varicose veins of left lower extremity with inflammation I83.12 Raynauds disease I73.00
== END 2023-02-18 09:53 | disposition home or self-care (01) ==
PROVIDERS: PCP Internal Medicine; Visit Provider Surgery Vascular Surgery
DX: I83.12 Varicose veins of left lower extremity with inflammation (principal); I73.00 Raynaud's syndrome without gangrene
CPT/HCPCS: 99203

== ENCOUNTER → 2023-02-18 08:58 | Outpatient (BNVA) | payer BC, SELFPAY | PROVIDERS: PCP Internal Medicine; Visit Provider Surgery Vascular Surgery ==

== ENCOUNTER 2023-02-22 08:31 | Outpatient (REF) | payer BC, SELFPAY ==
--- NOTE | ~2023-02-22 | US_ITS ---
EXAMINATION: US LOWER EXTREMITY VENOUS (REFLUX EXAM), BILATERAL CLINICAL INDICATION: Varicose veins of bilateral lower extremity COMPARISON: None. TECHNIQUE: Color flow triplex imaging and compression Doppler was performed to evaluate both the deep and the superficial systems bilaterally. To evaluate the superficial system, the examination was performed in the upright position. Color-flow Doppler ultrasound and compression ultrasound were utilized. In addition, maneuvers were utilized to demonstrate reflux. FINDINGS: RIGHT: 1. DEEP VENOUS ULTRASOUND OF THE RIGHT LOWER EXTREMITY: Common Femoral Vein: Compressible, normal respiratory variation and augmented flow. Popliteal Vein: Compressible, normal augmentation. Deep Venous Reflux: There is no evidence of reflux in the deep system in either the common femoral vein or the popliteal vein. There is no evidence of a Lyons's cyst. 2. SUPERFICIAL ULTRASOUND WITH DOPPLER OF RIGHT LOWER EXTREMITY: RIGHT GREAT SAPHENOUS VEIN: Saphenofemoral Junction: 6 mm. No reflux. Proximal Thigh: 3 mm. No reflux. Mid Thigh: 2 mm. No reflux. Above Knee: 2 mm. No reflux. Below Knee: 2 mm. No reflux. Mid Calf: 1 mm. No reflux. Ankle: 1 mm. No reflux. DUPLICATED GREAT SAPHENOUS VEIN: Yes, laterally. Saphenofemoral junction: 3 mm. No reflux Mid thigh: 2 mm. No reflux RIGHT SMALL SAPHENOUS VEIN: Proximal: 3 mm. No reflux. Distal: 2 mm. No reflux. PERFORATORS: None LEFT: 1. DEEP VENOUS ULTRASOUND OF THE LEFT LOWER EXTREMITY: Common Femoral Vein: Compressible, normal respiratory variation and augmented flow. Popliteal Vein: Compressible, normal augmentation. Deep Venous Reflux: There is no evidence of reflux in the deep system in either the common femoral vein or the popliteal vein. There is no evidence of a Lyons's cyst. 2. SUPERFICIAL ULTRASOUND WITH DOPPLER OF LEFT LOWER EXTREMITY: LEFT GREAT SAPHENOUS VEIN: Saphenofemoral Junction: 6 mm. No reflux. Proximal Thigh: 3 mm. No reflux. Mid Thigh: 2 mm. No reflux. Above Knee: 3 mm. No reflux. Below Knee: 2 mm. No reflux. Mid Calf: 1 mm. No reflux. Ankle: 2 mm. No reflux. DUPLICATED GREAT SAPHENOUS VEIN: Yes, laterally. Saphenofemoral junction: 2 mm. No reflux Mid thigh: 2 mm. No reflux LEFT SMALL SAPHENOUS VEIN: Proximal: 2 mm. No reflux. Distal: 2 mm. No reflux. PERFORATORS: None US/US venous duplex LE BI IMPRESSION: No evidence of bilateral lower extremity abnormal superficial venous reflux. No deep vein thrombosis. Abnormal lower extremity venous reflux times: Superficial and deep calf veins: >500 ms Femoropopliteal veins: >1000 ms Perforating veins: >350 ms Irma N, Kailyn J, Esdras L, Vilma HO, Ray SS, Cortney Arroyo M, Serena WH. Definition of venous reflux in lower-extremity veins.J Vasc Surg. 2003; 38:[phone].
== END 2023-02-22 08:32 | disposition home or self-care (01) ==
LOC: HO.US 08:31
PROVIDERS: PCP Internal Medicine; Visit Provider Surgery Vascular Surgery
DX: I83.893 Varicose veins of bilateral lower extremities with other complications (principal)
CPT/HCPCS: 93970

== ENCOUNTER 2023-05-10 20:31 | Emergency (ER) | payer BC, SELFPAY ==
--- NOTE | ~2023-05-10 | XR_ITS ---
EXAMINATION: XR KNEE, LEFT CLINICAL INFORMATION: Diffuse pain COMPARISON: None available. TECHNIQUE: Four views of the left knee. FINDINGS: No fracture or joint effusion. Alignment is anatomic. Joint spaces are maintained. No abnormal soft tissue calcification. There is mild osteopenia.. XR/XR knee LT 3V IMPRESSION: Mild osteopenia. Otherwise unremarkable left knee exam...
[2023-05-10 21:38] VITALS: BP 118/72; PULSE 87; RESP 18; TEMP 36.4; O2SAT 95; BMI 18.9
--- OUTSIDE RECORDS SUMMARY | 2023-05-10 21:57 | XMS_ITS | Continuity of Care Document ---
Author Name Unknown Organization [facility] Address [address] [place] [id number]- Care Team Providers Care Tax Revenue Officer Name Role Phone Nancy Eden MD, Millicent Primary Care Phys kiarra Encounter [facility] [place] Date(s): 02/16/23 - 03/18/23 [facility] [address] [place] [id number] [place] Allergies, Adverse Reactions, Alerts Substance Reaction Severity Status ciprofloxacin 1 Active Glutens malabsorption Active sulfa drugs Active quinolone antibiotics 2 Peripheral neuropathy Active shellfish Active Macrodantin rash Active Cogentin double vision, migraine Acti ve Compazine Active Mandelamine Active Bee Stings Active Contrast Dye 3 Active 1 All Quinolones 2Patient reports severe [...] Care Team Personnel Name: Jessie Augustin Position: [facility] Outreach Member Role: Lifetime Consulting Physician Name: Paulo Patterson RN Position: [facility] RN Member Role: Primary Care Nurse Name: Millicent Lugo MD Position: Reference Physician Member Role: PCP Address: Address: [address] [place] [address] [place] [address]- Name: Tara Milian RN Position: S RN Member Role: Primary Care Nurse Care Team Related Persons Name: ZAYNAB GERARDO Address: [facility] Name: AYAAN EPPS Name: LAZARA CASANOVA Address: home [address] [place] [address] Name: RASHEEDA LIZARRAGA Address: home [address] [place] [address]
[2023-05-10 22:11] VITALS: BP 123/72; PULSE 73; RESP 18; TEMP 36.8; O2SAT 99
--- NOTE | 2023-05-10 22:11 | ED_ITS ---
HPI - General Adult General Chief complaint: General Medical Stated complaint: leg pain Time Seen by Provider: 05/10/23 22:11 Source: patient Mode of arrival: ambulatory Limitations: no limitations History of Present Illness HPI narrative: Patient's history of Raynaud's disease osteoarthritis of left knee rheumatoid factor positive but not diagnosed at rheumatoid arthritis/lupus. Comes here for few days of diffuse pain mostly in the left knee and all other joints unable to ambulate because of pain today also intermittently noticed shortness of breath and dizziness feels anxious been taking NSAID for some time without much relief no recent injury no fever no chills no joint swelling Related Data Home Medications Medication Instructions Recorded Confirmed albuterol sulfate 90 mcg/actuation 2 puff inhalation Q4-6H PRN 04/07/22 06/08/22 aerosol inhaler Previous Rx's Medication Instructions Recorded lorazepam 0.5 mg tablet (Ativan) 0.5 mg PO TID PRN anxiety #7 tabs 04/23/22 pregabalin 25 mg capsule (Lyrica) 25 mg PO DAILY #14 caps 04/23/22 ondansetron 4 mg disintegrating 4 mg PO Q8H PRN nausea and 04/25/22 tablet vomiting #7 tabs methylprednisolone 4 mg tablets in 4 mg PO DAILY #21 ea 02/06/23 a dose pack (Medrol (Addison)) diclofenac epolamine 1.3 % 1 patch topical BID #30 ea 05/10/23 transdermal 12 hour patch Allergies Allergy/AdvReac Type Severity Reaction Status Date / Time gluten [Gluten] Allergy Severe PT HAS Verified 05/10/23 21:38 CELIAC DISEASE Sulfa (Sulfonamide Allergy Severe LUPUS-LIKE Verified 05/10/23 21:38 Antibiotics) benztropine [Cogentin] Allergy Intermediate Rash Verified 05/10/23 21:38 ciprofloxacin [From Cipro] Allergy Intermediate TENDONOPATH Verified 05/10/23 21:38 Y/NEUROPATH Y shellfish derived Allergy Intermediate Hives Verified 05/10/23 21:38 promethazine Allergy Unknown Unknown Verified 05/10/23 21:38 nitrofurantoin AdvReac Severe Drug Verified 05/10/23 21:38 [From Macrodantin] induced Hep Mandelamine Allergy Intermediate Drug Uncoded 05/10/23 21:38 induced Hep QUINOLONES Allergy Intermediate Unknown Uncoded 05/10/23 21:38 Review of Systems 2 Review of Systems: Yes all other systems are reviewed and are negative [facility] Past Medical History Medical History Rheumatoid factor positive Post-COVID chronic cough Neuropathy Asthma Diverticulosis Kidney stone Celiac sprue Surgical History H/O cystoscopy S/P cardiac cath (~07/2020) Hx of excision of mass (~1999) Family History Family History Mother Cervical cancer Uterine cancer History of thyroid disorder Maternal Grandmother Diabetes Stroke Maternal Grandfather Diabetes Coronary artery disease Paternal Grandmother Uterine cancer Diabetes Stroke Paternal Grandfather Stroke Father Bladder cancer Social History Social History Household Members: Spouse Household Members Other:: Son Alcohol intake: never Patient Tobacco Use Status: Never used Tobacco Smoked in Last 30 Days: No Use of substances other than those prescribed or required for medical reasons: No Advance Directives: No Advance Directives Information Provided: No Patient : No 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 Oriented X3. No acute distress. Eyes: No pallor ENT: Pharynx normal. Oral Mucosa moist Neck: Normal inspection. Neck supple. CVS: Normal heart rate and rhythm. Pulses normal. Respiratory: No respiratory distress. Equal air entry bilateral, no wheezing/rales/rhonchi Abdomen: Soft and nontender. Bowel sounds are present, no mass palpable, no CVA tenderness Skin: Skin warm and dry. Normal skin color. Normal skin turgor. Extremities: No lower extremity edema. No calf tenderness left knee diffuse tenderness no joint effusion tender medial collateral ligament good range of movement Leslye and anterior drawer sign negative no swelling of the small joints Neuro: Oriented X 3. No motor deficit. No sensory deficit.No cerebellar signs , cranial nerves II-XII intact Medications Administered Discontinued Medications Generic Name Dose Route Start Last Admin Trade Name Corwin PRN Reason Stop Dose Admin Ketorolac Tromethamine 30 mg 05/10/23 22:24 05/10/23 22:54 Ketorolac Tromethamine 30 Mg/Ml Vial IVPUSH 05/10/23 22:25 30 mg ONCE ONE Administration Medical Decision Making Medical Decision Making [facility] Narrative: Patient with diffuse arthralgia CRP negative sed rate negative. Slightly elevated rheumatoid factor which is chronic, Discharge patient home on diclofenac sodium patch advised to follow with civil engineering manager and PCP Differential Diagnosis Differential Diagnoses: The differential diagnosis associated with the presentation includes Arthritis/rheumatoid arthritis/lupus/MCTD Lab Data [facility] Lab Attestation statement: I reviewed the patient's lab results. 05/10/23 22:52 05/10/23 22:52 Labs: Lab Results 05/10/23 Range/Units 22:52 WBC 5.6 (4.8-10.8) X10*3/uL RBC 4.28 (4.20-5.50) X10*6/uL Hgb 12.5 (12.0-16.0) g/dl Hct 38.8 (37.0-47.0) % MCV 90.7 (80.0-98.0) fL MCH 29.2 (27.0-33.0) pg MCHC 32.2 (31.0-35.0) g/dl RDW 12.2 (11.0-16.0) % Plt Count 214 (160-400) X10*3/uL MPV 10.8 (9.4-12.3) fL Immature Gran % (Auto) 0.2 (0.0-0.4) % Neut % (Auto) 63.3 (45-73) % Lymph % (Auto) 26.7 (20-40) % Garrard % (Auto) 6.4 (2-11) % Eos % (Auto) 2.7 (0-4) % Baso % (Auto) 0.7 (0-2) % Lymph # (Auto) 1.5 (1.2-4.9) X10*3/uL Garrard # (Auto) 0.4 (0.1-1.2) X10*3/uL Eos # (Auto) 0.2 (0.0-0.4) X10*3/uL Baso # (Auto) 0.0 (0.0-0.2) X10*3/uL Abs Immat Gran (auto) 0.01 (0.00-0.03) X10*3/uL Absolute Neuts (auto) 3.6 (2.0-8.3) x10*3/uL Absolute Nucleated RBC 0.000 (0.0-0.012) X10*3/uL Nucleated RBC % (auto) 0.0 (0.0-0.2) /100WBC Sodium 144 (135-145) mmol/L Potassium 3.8 (3.3-5.1) mmol/L Chloride 107 (96-108) mmol/L Carbon Dioxide 28 (22-29) mmol/L Anion Gap 13 (12-20) BUN 22 H (9-16) mg/dL Creatinine 0.65 (0.5-1.4) mg/dL Estim Creat Clear Calc 63.4 Estimated GFR > 60 Random Glucose 76 (60-115) mg/dL Calcium 9.6 (8.4-10.2) mg/dL Magnesium 2.5 (1.6-2.6) mg/dL Total Bilirubin 0.2 (0.0-1.0) mg/dL AST 17 (5-31) U/L ALT 10 (0-31) U/L Alkaline Phosphatase 53 (39-117) U/L C-Reactive Protein < 0.04 (< or = 0.50) mg/dL Total Protein 6.9 (6.5-8.0) g/dL Albumin 4.3 (3.5-5.0) g/dL Rheumatoid Factor 17.4 H (<15.0) IU/mL Influenza Type A (PCR) NEGATIVE (Negative) Influenza Type B (PCR) NEGATIVE (Negative) RSV RNA Qual (PCR) NEGATIVE (Negative) SARS-CoV-2 RNA (RT-PCR) NEGATIVE (Negative) Independent Interpretation I performed an independent interpretation of an: Plain X-Ray Radiology Impression Discussion of test interpretation with radiology: I have reviewed the radiologist's reading. Discharge Plan Discharge Clinical Impression: Arthralgia Patient Disposition: Home, Self-Care Instructions: Arthralgia (ED) Additional Instructions: Continue medications as prescribed Follow-up with your civil engineering manager/PCP Prescriptions: New diclofenac epolamine 1.3 % patch 12 hour 1 patch topical BID Qty: 30 1RF No Action pregabalin [Lyrica] 25 mg capsule 25 mg PO DAILY Qty: 14 0RF lorazepam [Ativan] 0.5 mg tablet 0.5 mg PO TID PRN (Reason: anxiety) Qty: 7 0RF ondansetron 4 mg tablet,disintegrating 4 mg PO Q8H PRN (Reason: nausea and vomiting) Qty: 7 0RF methylprednisolone [Medrol (Addison)] 4 mg tablets,dose pack 4 mg PO DAILY Qty: 21 0RF albuterol sulfate 90 mcg/actuation HFA aerosol inhaler 2 puff inhalation Q4-6H PRN
[2023-05-10] MEDS: Ketorolac Tromethamine 30 MG/ML VIAL IVPUSH (22:54)
[2023-05-10 23:00] LABS: MANUAL DIFF FLAG NO
[2023-05-10 23:08] LABS: Basophils Percent Auto 0.7 % (0-2); Eosinophils Absolute Auto 0.2 X10*3/uL (0.0-0.4); Eosinophils Percent Auto 2.7 % (0-4); Hematocrit 38.8 % (37.0-47.0); Hemoglobin 12.5 g/dl (12.0-16.0); Imm Gran Abs Auto 0.01 X10*3/uL (0.00-0.03); Imm Gran Pct Auto 0.2 % (0.0-0.4); Lymphocytes Absolute Auto 1.5 X10*3/uL (1.2-4.9); Lymphocytes Percent Auto 26.7 % (20-40); Mean Corpuscular HGB Conc 32.2 g/dl (31.0-35.0); Mean Corpuscular Hemoglobin 29.2 pg (27.0-33.0); Mean Corpuscular Volume 90.7 fL (80.0-98.0); Mean Platelet Volume 10.8 fL (9.4-12.3); Monocytes Absolute Auto 0.4 X10*3/uL (0.1-1.2); Monocytes Percent Auto 6.4 % (2-11); Neutrophils Absolute Auto 3.6 x10*3/uL (2.0-8.3); Neutrophils Percent Auto 63.3 % (45-73); Platelet Count 214 X10*3/uL (160-400); Red Blood Count 4.28 X10*6/uL (4.20-5.50); Red Cell Distribution Width 12.2 % (11.0-16.0); White Blood Count 5.6 X10*3/uL (4.8-10.8)
[2023-05-10 23:15] LABS: Rheumatoid Factor 17.4 IU/mL (<15.0)
[2023-05-10 23:19] LABS: Alanine Aminotransferase 10 U/L (0-31); Albumin Level 4.3 g/dL (3.5-5.0); Alkaline Phosphatase 53 U/L (39-117); Anion Gap 13 (12-20); Aspartate Amino Transferase 17 U/L (5-31); Bilirubin Total 0.2 mg/dL (0.0-1.0); Blood Urea Nitrogen 22 mg/dL (9-16); C Reactive Protein < 0.04 mg/dL (< or = 0.50); Calcium 9.6 mg/dL (8.4-10.2); Carbon Dioxide 28 mmol/L (22-29); Chloride 107 mmol/L (96-108); Creatinine Clr Calc Pharmacy 63.4; Estimated Glomerular Filt Rate > 60; Glucose Random 76 mg/dL (60-115); Magnesium 2.5 mg/dL (1.6-2.6); Potassium 3.8 mmol/L (3.3-5.1); Sodium 144 mmol/L (135-145); Total Protein 6.9 g/dL (6.5-8.0)
[2023-05-10 23:44] LABS: Influenza A PCR NEGATIVE (Negative); Influenza B PCR NEGATIVE (Negative); Resp Syncy Virus RNA Qual PCR NEGATIVE (Negative); SARS COV2 PCR INHOUSE NEGATIVE (Negative)
[2023-05-10 23:48] LABS: Erythrocyte Sedimentation Rate 12 MM/HR (0-20)
[2023-05-11 00:02] VITALS: BP 105/61; PULSE 82; RESP 18; TEMP 36.9; O2SAT 97
[2023-05-14 08:23] LABS: Anti Nuclear Antibody Screen NEGATIVE (NEGATIVE)
== END 2023-05-11 00:09 | disposition home or self-care (01) ==
PROVIDERS: Emergency Provider Internal Medicine; PCP Internal Medicine
DX: M79.605 Pain in left leg (principal); M17.12 Unilateral primary osteoarthritis, left knee; M70.52 Other bursitis of knee, left knee; Y93.9 Activity, unspecified; Z20.822 Contact with and (suspected) exposure to COVID-19; Z20.828 Contact with and (suspected) exposure to other viral communicable diseases; R06.02 Shortness of breath; M79.2 Neuralgia and neuritis, unspecified; R76.8 Other specified abnormal immunological findings in serum; I73.00 Raynaud's syndrome without gangrene; Z79.899 Other long term (current) drug therapy; Z79.1 Long term (current) use of non-steroidal anti-inflammatories (NSAID)
CPT/HCPCS: 0241U; 73562; 80053; 83735; 85025; 85652; 86038; 86140; 86431; 96374; 99284; J1885

== ENCOUNTER 2023-06-25 11:32 | Emergency (ER) | payer BC, SELFPAY ==
--- NOTE | ~2023-06-25 | XR_ITS ---
EXAMINATION: XR CHEST CLINICAL INFORMATION: Chest pain, cough and Covid positive. COMPARISON: None available. TECHNIQUE: 2 views of the chest were obtained. FINDINGS: The lungs are hyperinflated but clear. The heart size and pulmonary vascularity is normal. No gross bony abnormality seen. XR/XR chest 2V IMPRESSION: Hyperinflated lungs without acute process.
--- NOTE | 2023-06-25 11:37 | ED_ITS ---
HPI - URI/Sore Throat General Chief Complaint: General Medical Stated Complaint: COVID + Time Seen by Provider: 06/25/23 12:06 Source: patient, family, RN notes reviewed and old records reviewed Mode of arrival: ambulatory History of Present Illness HPI Narrative: 62-year-old female with a past medical history of asthma, renal stones, diverticulosis, Raynaud's, osteoarthritis, COVID-19 positive on 06/22/2023, presenting to the ED complaining of continued fever T-max 104 degrees, myalgias, cough, SOB, left-sided chest discomfort worse with coughing and breathing, and decreased p.o. intake. Reports syncopal episode this morning without head trauma. Last took Tylenol around 05:00AM. Denies abdominal pain, nausea, vomiting, diarrhea, pedal edema, calf tenderness MD elicited complaint: fever and cough Related Data Home Medications Medication Instructions Recorded Confirmed albuterol sulfate 90 mcg/actuation 2 puff inhalation Q4-6H PRN 04/07/22 06/08/22 aerosol inhaler Previous Rx's Medication Instructions Recorded lorazepam 0.5 mg tablet (Ativan) 0.5 mg PO TID PRN anxiety #7 tabs 04/23/22 pregabalin 25 mg capsule (Lyrica) 25 mg PO DAILY #14 caps 04/23/22 ondansetron 4 mg disintegrating 4 mg PO Q8H PRN nausea and 04/25/22 tablet vomiting #7 tabs methylprednisolone 4 mg tablets in 4 mg PO DAILY #21 ea 02/06/23 a dose pack (Medrol (Addison)) diclofenac epolamine 1.3 % 1 patch topical BID #30 ea 05/10/23 transdermal 12 hour patch Allergies Allergy/AdvReac Type Severity Reaction Status Date / Time gluten [Gluten] Allergy Severe PT HAS Verified 05/10/23 21:38 CELIAC DISEASE Sulfa (Sulfonamide Allergy Severe LUPUS-LIKE Verified 05/10/23 21:38 Antibiotics) benztropine [Cogentin] Allergy Intermediate Rash Verified 05/10/23 21:38 ciprofloxacin [From Cipro] Allergy Intermediate TENDONOPATH Verified 05/10/23 21:38 Y/NEUROPATH Y shellfish derived Allergy Intermediate Hives Verified 05/10/23 21:38 promethazine Allergy Unknown Unknown Verified 05/10/23 21:38 nitrofurantoin AdvReac Severe Drug Verified 05/10/23 21:38 [From Macrodantin] induced Hep Mandelamine Allergy Intermediate Drug Uncoded 05/10/23 21:38 induced Hep QUINOLONES Allergy Intermediate Unknown Uncoded 05/10/23 21:38 Review of Systems 2 Review of Systems: Constitutional: + Fever, No Chills, +myalgias ENT/Mouth: No Ear Pain, + Nasal Congestion, No Sinus Pain, No Hoarseness, No sore throat, No Rhinorrhea, No Swallowing Difficulty Cardiovascular: + Chest Pain, + SOB Respiratory: + Cough, No Sputum, No Wheezing Gastrointestinal: No Nausea, No Vomiting, No Diarrhea, No Constipation, No Abdominal pain Genitourinary: No Dysuria, No Urinary Frequency, No Hematuria, No Urinary Incontinence/retention, No Urgency, No Flank Pain Musculoskeletal: No joint pain, + Myalgias, No Joint Swelling Skin: No Skin Lesions, No rash Neuro: No Weakness, No Numbness, No Paresthesias Yes all other systems are reviewed and are negative Constitutional: Constitutional: Reports as per [facility] Past Medical History Attestation statement: The following information was validated with the patient. Source: old records reviewed Medical History Rheumatoid factor positive Post-COVID chronic cough Neuropathy Asthma Diverticulosis Kidney stone Celiac sprue Surgical History H/O cystoscopy S/P cardiac cath (~07/2020) Hx of excision of mass (~1999) Family History Family History Mother Cervical cancer Uterine cancer History of thyroid disorder Maternal Grandmother Diabetes Stroke Maternal Grandfather Diabetes Coronary artery disease Paternal Grandmother Uterine cancer Diabetes Stroke Paternal Grandfather Stroke Father Bladder cancer Social History Social History Household Members: Spouse Household Members Other:: Son Alcohol intake: never Patient Tobacco Use Status: Never used Tobacco Smoked in Last 30 Days: No Use of substances other than those prescribed or required for medical reasons: No Advance Directives: No Advance Directives Information Provided: No 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[employer] [place] Exam 2 Vital Signs: Vital Signs: Last Vital Signs Temp 98.8 F 06/25/23 14:39 Pulse 108 H 06/25/23 14:40 Resp 18 06/25/23 14:39 BP 106/70 06/25/23 14:40 Pulse Ox 95 06/25/23 14:39 O2 Del Method Room Air 06/25/23 14:39 BMI result Body Mass Index 18.9 Const: General: cooperative, healthy appearing and no acute distress O rientation/consciousness: patient oriented x3 Limitations: no limitations HEENT: Head: Yes normal to inspection and Yes atraumatic Ears: hearing grossly normal bilaterally General nose exam: Normal external nose present Face and sinus: Yes normal facial exam Eyes: General: appearance normal, both eyes and all related structures EOM: EOMs intact bilaterally Neck: Neck: Yes normal visual inspection and Yes no meningeal signs Resp: Effort & Inspection: normal respiratory effort and no respiratory distress Auscultation: clear to auscultation bilaterally, no crackles, no rhonchi and no wheezes Cardio: Rate: regular rate and tachycardic Heart sounds: S1 normal heart sound present and S2 normal heart sound present GI: Inspection: Yes normal to inspection Palpation (GI): Soft to palpation, nontender, no guarding and not rigid Skin: Rashes: no rashes Wounds: no wounds Neuro: General: patient oriented x3, tone normal, moves all extremities, no meningeal signs, no focal motor deficits and CN's II-XI intact bilaterally C ranial nerves: Yes CN's II-XII intact bilaterally Gait exam (Neuro): Normal gait present Extrem: General: Yes normal to inspection, Yes no pedal edema and Yes no calf tenderness Course Course Course Narrative: This is an RME: Additional HPI, ROS, PE not included below will be deferred to primary provider. Patient is a 62-year-old female who presents to the emergency department reporting that she is COVID-19 +, as is her . Reports pain to L lung , body aches, non productive cough. Symptom onset was Wednesday night, 3 days ago. Noted to be tachycardic and febrile. meets SIRS criteria, less likely bacterial sepsis infection, though will obtain lactic acid and blood cultures given criteria met. Plan: CXR, EKG, labs, acetaminophen PO, patient placed in WR pending bed availability -[id number]--labs reassuring. D-dimer WNL, PE unlikely. Troponin negative. XR chest 2V IMPRESSION: Hyperinflated lungs without acute process Results discussed with patient including worrisome signs and symptoms and strict return precautions, and when to return to the emergency department. They verbalized understanding and feel safe for discharge at this time. Medications Administered Discontinued Medications Generic Name Dose Route Start Last Admin Trade Name Corwin PRN Reason Stop Dose Admin Acetaminophen 975 mg 06/25/23 11:46 06/25/23 11:53 Acetaminophen Oral Liquid 650 Mg/20.3 Ml Solution PO 06/25/23 11:47 975 mg ONCE ONE Administration Sodium Chloride 1,000 mls @ 999 mls/hr 06/25/23 12:45 06/25/23 14:33 Ns IV 06/25/23 13:45 Infused .Q1H1M MCKAY Infusion Ketorolac Tromethamine 15 mg 06/25/23 12:39 06/25/23 13:07 Ketorolac Tromethamine 15 Mg/Ml Vial IVPUSH 06/25/23 12:40 15 mg ONCE ONE Administration Medical Decision Making Medical Decision Making [facility] Narrative: 62-year-old female with a past medical history of asthma, renal stones, diverticulosis, Raynaud's, osteoarthritis, COVID-19 positive on 06/22/2023, presenting to the ED complaining of continued fever T-max 104 degrees, myalgias, cough, SOB, left-sided chest discomfort worse with coughing and breathing, and decreased p.o. intake. Reports syncopal episode this morning without head trauma. On exam febrile to 101.3, tachycardic likely from fever, NAD, nontoxic appearing, lungs CTA, no pedal edema/calf tenderness. Abdomen soft/nontender. Concern for continued COVID-19 symptoms/viral illness vs pneumonia or ACS/PE although of lower suspicion. Rule out metabolic abnormalities Plan: EKG, labs, CXR, IVF, Toradol, re-evaluate Please refer to course for remaining clinical decision making, interpretation of labs/imaging results, and discussions with consultants and/or family members. Differential Diagnosis Differential Diagnoses: The differential diagnosis associated with the presentation includes As above Admission/Observation Consideration of admission/observation: Escalation of care including admission/observation considered Lab Data [facility] Lab Attestation statement: I reviewed the patient's lab results. 06/25/23 11:55 06/25/23 11:55 Labs: Lab Results 06/25/23 06/25/23 Range/Units 11:55 13:07 WBC 5.7 (4.8-10.8) X10*3/uL RBC 4.17 L (4.20-5.50) X10*6/uL Hgb 12.1 (12.0-16.0) g/dl Hct 38.4 (37.0-47.0) % MCV 92.1 (80.0-98.0) fL MCH 29.0 (27.0-33.0) pg MCHC 31.5 (31.0-35.0) g/dl RDW 13.0 (11.0-16.0) % Plt Count 171 (160-400) X10*3/uL MPV 10.8 (9.4-12.3) fL Immature Gran % (Auto) 0.4 (0.0-0.4) % Neut % (Auto) 81.5 H (45-73) % Lymph % (Auto) 9.4 L (20-40) % Nuckolls % (Auto) 8.1 (2-11) % Eos % (Auto) 0.2 (0-4) % Baso % (Auto) 0.4 (0-2) % Lymph # (Auto) 0.5 L (1.2-4.9) X10*3/uL Nuckolls # (Auto) 0.5 (0.1-1.2) X10*3/uL Eos # (Auto) 0.0 (0.0-0.4) X10*3/uL Baso # (Auto) 0.0 (0.0-0.2) X10*3/uL Abs Immat Gran (auto) 0.02 (0.00-0.03) X10*3/uL Absolute Neuts (auto) 4.6 (2.0-8.3) x10*3/uL Absolute Nucleated RBC 0.000 (0.0-0.012) X10*3/uL Nucleated RBC % (auto) 0.0 (0.0-0.2) /100WBC D-Dimer High Sensitivty 155 NG/ML Sodium 139 (135-145) mmol/L Potassium 3.9 (3.3-5.1) mmol/L Chloride 103 (96-108) mmol/L Carbon Dioxide 24 (22-29) mmol/L Anion Gap 16 (12-20) BUN 15 (9-16) mg/dL Creatinine 0.63 (0.5-1.4) mg/dL Estim Creat Clear Calc 65.4 Estimated GFR > 60 Random Glucose 101 (60-115) mg/dL Lactic Acid 0.8 (0.5-2.0) mmol/L Calcium 9.6 (8.4-10.2) mg/dL Magnesium 2.1 (1.6-2.6) mg/dL Total Bilirubin 0.4 (0.0-1.0) mg/dL AST 25 (5-31) U/L ALT 18 (0-31) U/L Alkaline Phosphatase 59 (39-117) U/L Troponin I High Sens < 2.7 (<3.5-17.0) ng/L Total Protein 7.2 (6.5-8.0) g/dL Albumin 4.1 (3.5-5.0) g/dL Independent Interpretation I performed an independent interpretation of an: EKG and Plain X-Ray Radiology Impression Discussion of test interpretation with radiology: I have reviewed the radiologist's reading. Independent Historian Clinical information obtained from an independent historian. History obtained from or confirmed by: Spouse External Record Review External record reviewed: Inpatient record, Office record, Outpatient record, Prior outpatient labs, Prior outpatient radiology, Primary care record and Outside ED record Tests considered The following testing was considered but not selected: As above Prescription Management I considered prescription management with: Pain Medication, Antiviral and Antibiotic Chronic Conditions Patient?s care impacted by: Other Discharge Plan Discharge Clinical Impression: COVID-19 Patient Disposition: Home, Self-Care Instructions: COVID-19 (Coronavirus Disease 2019) (ED) Additional Instructions: Your blood work and chest x-ray were reassuring. No pneumonia appreciated Your D-dimer and troponin were also negative Continue symptomatic treatment at home, please stay hydrated, alternate Tylenol and Motrin to control fever If fevers uncontrolled with medications, you constant worsening chest pain/shortness of breath or fever unresolved with medicine return to the ED Follow-up with her doctor Prescriptions: No Action pregabalin [Lyrica] 25 mg capsule 25 mg PO DAILY Qty: 14 0RF lorazepam [Ativan] 0.5 mg tablet 0.5 mg PO TID PRN (Reason: anxiety) Qty: 7 0RF ondansetron 4 mg tablet,disintegrating 4 mg PO Q8H PRN (Reason: nausea and vomiting) Qty: 7 0RF methylprednisolone [Medrol (Addison)] 4 mg tablets,dose pack 4 mg PO DAILY Qty: 21 0RF diclofenac epolamine 1.3 % patch 12 hour 1 patch topical BID Qty: 30 1RF albuterol sulfate 90 mcg/actuation HFA aerosol inhaler 2 puff inhalation Q4-6H PRN Referrals: Millicent Chapa MD [Primary Care Provider] - 1 week Interventions: ED Discharge Assessment Last Done: 06/25/23 14:41 Discharge Date/Time: 06/25/23 14:43
[2023-06-25 11:39] VITALS: BP 107/73; PULSE 114; RESP 16; TEMP 38.5; O2SAT 97; BMI 18.9
[2023-06-25] MEDS: Acetaminophen Oral Liquid 650 MG/20.3 ML SOLUTION 975 MG PO (11:53)
[2023-06-25 12:02] LABS: MANUAL DIFF FLAG NO
[2023-06-25 12:07] LABS: Basophils Percent Auto 0.4 % (0-2); Eosinophils Percent Auto 0.2 % (0-4); Hematocrit 38.4 % (37.0-47.0); Hemoglobin 12.1 g/dl (12.0-16.0); Imm Gran Abs Auto 0.02 X10*3/uL (0.00-0.03); Imm Gran Pct Auto 0.4 % (0.0-0.4); Lymphocytes Absolute Auto 0.5 X10*3/uL (1.2-4.9); Lymphocytes Percent Auto 9.4 % (20-40); Mean Corpuscular HGB Conc 31.5 g/dl (31.0-35.0); Mean Corpuscular Volume 92.1 fL (80.0-98.0); Mean Platelet Volume 10.8 fL (9.4-12.3); Monocytes Absolute Auto 0.5 X10*3/uL (0.1-1.2); Monocytes Percent Auto 8.1 % (2-11); Neutrophils Absolute Auto 4.6 x10*3/uL (2.0-8.3); Neutrophils Percent Auto 81.5 % (45-73); Platelet Count 171 X10*3/uL (160-400); Red Blood Count 4.17 X10*6/uL (4.20-5.50); White Blood Count 5.7 X10*3/uL (4.8-10.8)
[2023-06-25 12:16] LABS: Lactic Acid 0.8 mmol/L (0.5-2.0)
[2023-06-25 12:21] LABS: Alanine Aminotransferase 18 U/L (0-31); Albumin Level 4.1 g/dL (3.5-5.0); Alkaline Phosphatase 59 U/L (39-117); Anion Gap 16 (12-20); Aspartate Amino Transferase 25 U/L (5-31); Bilirubin Total 0.4 mg/dL (0.0-1.0); Blood Urea Nitrogen 15 mg/dL (9-16); Calcium 9.6 mg/dL (8.4-10.2); Carbon Dioxide 24 mmol/L (22-29); Chloride 103 mmol/L (96-108); Creatinine Clr Calc Pharmacy 65.4; Estimated Glomerular Filt Rate > 60; Glucose Random 101 mg/dL (60-115); Potassium 3.9 mmol/L (3.3-5.1); Sodium 139 mmol/L (135-145); Total Protein 7.2 g/dL (6.5-8.0)
[2023-06-25 13:01] LABS: Magnesium 2.1 mg/dL (1.6-2.6)
--- NOTE | 2023-06-25 13:06 | ECG_ITS ---
Test Reason : SOB Blood Pressure : / mmHG Vent. Rate : 099 BPM Atrial Rate : 099 BPM P-R Int : 178 ms QRS Dur : 102 ms QT Int : 372 ms P-R-T Axes : 079 034 082 degrees QTc Int : 477 ms Normal sinus rhythm Septal infarct (cited on or before 10-JUL-2020) Abnormal ECG When compared with ECG of 06-FEB-2023 16:35, QRS duration has decreased Non-specific change in ST segment in Anterior leads Referred By: Carly Hall Electronically Signed By:Arun Martinez
[2023-06-25] MEDS: Ketorolac Tromethamine 15 MG/ML VIAL IVPUSH (13:07)
[2023-06-25] MEDS: 0.9 % Sodium Chloride 1,000 ML 999 ML IV (13:07)
[2023-06-25 13:10] VITALS: TEMP 37.4
[2023-06-25 13:26] LABS: D Dimer High Sensitivity 155 NG/ML
[2023-06-25 13:35] LABS: Troponin-I High Sensitivity < 2.7 ng/L (<3.5-17.0)
[2023-06-25 14:39] VITALS: BP 106/59; PULSE 98; RESP 18; TEMP 37.1; O2SAT 95
[2023-06-25 14:40] VITALS: BP 102/64; BP 106/70; PULSE 101; PULSE 108
== END 2023-06-25 14:43 | disposition home or self-care (01) ==
PROVIDERS: Nurse Practitioner Family; Physician Assistant; Emergency Provider Emergency Medicine; PCP Internal Medicine
DX: U07.1 COVID-19 (principal); R50.9 Fever, unspecified
CPT/HCPCS: 36415; 71046; 80053; 83605; 83735; 84484; 85025; 85379; 87040; 93005; 96361; 96374; 99284; 99285; J1885

== ENCOUNTER → 2023-06-25 13:06 | Outpatient (BNV) | payer BC, SELFPAY | PROVIDERS: Emergency Provider Emergency Medicine; PCP Internal Medicine; Visit Provider Internal Medicine Cardiovascular Disease | DX: R06.02 Shortness of breath (principal); R94.31 Abnormal electrocardiogram [ECG] [EKG] | CPT/HCPCS: 93010 ==

== ENCOUNTER 2023-07-19 20:36 | Outpatient (REF) | payer BC, SELFPAY ==
--- NOTE | ~2023-07-19 | XR_ITS ---
EXAMINATION: XR CHEST CLINICAL INFORMATION: Cough, history of Covid COMPARISON: 06/25/2023 TECHNIQUE: 2 views of the chest were obtained. FINDINGS: Lung volumes are symmetric. No focal consolidation is seen. No evidence of pneumothorax, pleural effusion, or pulmonary edema. The cardiomediastinal contour is unremarkable. No acute osseous findings are seen. XR/XR chest 2V IMPRESSION: No acute cardiopulmonary findings.
== END 2023-07-19 20:37 | disposition home or self-care (01) ==
LOC: HO.XRAY 20:36
PROVIDERS: Visit Provider Internal Medicine
DX: R05.9 Cough, unspecified (principal); Z86.16 Personal history of COVID-19
CPT/HCPCS: 71046

== ENCOUNTER 2023-07-29 20:01 | Emergency (ER) | payer BC, SELFPAY ==
--- NOTE | ~2023-07-29 | XR_ITS ---
EXAMINATION: XR CHEST CLINICAL INFORMATION: Dyspnea, chills COMPARISON: 07/19/2023 TECHNIQUE: 2 views of the chest were obtained. FINDINGS: The lungs are clear with no focal consolidation. No evidence of pneumothorax, pulmonary edema, or pleural effusions. The cardiomediastinal silhouette is unremarkable. No acute osseous findings. XR/XR chest 2V IMPRESSION: No acute cardiopulmonary findings.
[2023-07-29 20:50] VITALS: BP 122/66; PULSE 79; RESP 17; TEMP 36.8; O2SAT 99; BMI 18.9
--- NOTE | 2023-07-29 20:53 | ED_ITS ---
HPI - General Adult General Chief complaint: Extremity Injury, Lower Stated complaint: leg pain Time Seen by Provider: 07/29/23 22:35 Source: patient Mode of arrival: ambulatory Limitations: no limitations History of Present Illness HPI narrative: 62-year-old female with a history of neuropathy, asthma, diverticulosis, kidney stones, celiac sprue who presents emergency department for evaluation bilateral knee pain, lightheadedness, dizziness, tachycardia shortness of breath. Patient states that she has been having bilateral times 3-4 months. She states that she has been having right knee medial pain which is gotten progressively worse. She states she is getting similar pain now in the left knee. She states that the pain does radiates from the knees down to her feet and her feet feel like she is walking on phone. Patient states that she was working today and the pain became worse at work. She states she felt lightheaded and dizzy. She states she developed a very fast heart rate and felt short of breath. She states she is also having pain in her elbows bilaterally. Patient's her doctor for knee pain and has been placed on courses of steroids which help with her pain but when she comes off the steroids her pain returns. She did see a space and storage clerk, Dr. Sanchez and did not get a clear diagnosis for the cause of her knee pain. Patient's PCP is considering putting her on methotrexate for inflammatory joint pain. Patient did have an MRI of her knees which did not reveal any significant findings except for patellofemoral abnormalities Patient states that over the last several days she has had chills and dyspnea on exertion. Patient was seen in the emergency department 07/10/2020 by me and at that time she had an abnormal EKG with inferior ST segment depressions in leads 2 3 and and Q-waves anteriorly. 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 She states that she has had EKGs that have shown right bundle-branch block as well as SVT in the past. Related Data Home Medications Medication Instructions Recorded Confirmed albuterol sulfate 90 mcg/actuation 2 puff inhalation Q4-6H PRN 04/07/22 06/08/22 aerosol inhaler Previous Rx's Medication Instructions Recorded lorazepam 0.5 mg tablet (Ativan) 0.5 mg PO TID PRN anxiety #7 tabs 04/23/22 pregabalin 25 mg capsule (Lyrica) 25 mg PO DAILY #14 caps 04/23/22 ondansetron 4 mg disintegrating 4 mg PO Q8H PRN nausea and 04/25/22 tablet vomiting #7 tabs methylprednisolone 4 mg tablets in 4 mg PO DAILY #21 ea 02/06/23 a dose pack (Medrol (Addison)) diclofenac epolamine 1.3 % 1 patch topical BID #30 ea 05/10/23 transdermal 12 hour patch prednisone 10 mg tablet 10 mg PO DIRECTED #32 tabs 07/30/23 Allergies Allergy/AdvReac Type Severity Reaction Status Date / Time gluten [Gluten] Allergy Severe PT HAS Verified 07/29/23 20:50 CELIAC DISEASE Sulfa (Sulfonamide Allergy Severe LUPUS-LIKE Verified 07/29/23 20:50 Antibiotics) benztropine [Cogentin] Allergy Intermediate Rash Verified 07/29/23 20:50 ciprofloxacin [From Cipro] Allergy Intermediate TENDONOPATH Verified 07/29/23 20:50 Y/NEUROPATH Y shellfish derived Allergy Intermediate Hives Verified 07/29/23 20:50 promethazine Allergy Unknown Unknown Verified 07/29/23 20:50 nitrofurantoin AdvReac Severe Drug Verified 07/29/23 20:50 [From Macrodantin] induced Hep Mandelamine Allergy Intermediate Drug Uncoded 07/29/23 20:50 induced Hep QUINOLONES Allergy Intermediate Unknown Uncoded 07/29/23 20:50 Review of Systems 2 Review of Systems: Yes all other systems are reviewed and are negative [facility] Past Medical History Medical History Rheumatoid factor positive Post-COVID chronic cough Neuropathy Asthma Diverticulosis Kidney stone Celiac sprue Surgical History H/O cystoscopy S/P cardiac cath (~07/2020) Hx of excision of mass (~1999) Family History Family History Mother Cervical cancer Uterine cancer History of thyroid disorder Maternal Grandmother Diabetes Stroke Maternal Grandfather Diabetes Coronary artery disease Paternal Grandmother Uterine cancer Diabetes Stroke Paternal Grandfather Stroke Father Bladder cancer Social History Social History Household Members: Spouse Household Members Other:: Son Alcohol intake: never Patient Tobacco Use Status: Never used Tobacco Advance Directives: Yes Advance Directives on File: Yes Advance Directives Date on File: 04/27/22 Patient : No 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[employer] [place] Physical Exam ED Vital Signs: Vital Signs - 24 hr 07/29/23 20:50 07/29/23 22:33 07/29/23 23:30 Temperature 98.2 F 98.4 F 97.8 F Pulse Rate 79 81 80 Respiratory Rate 17 18 15 Blood Pressure 122/66 115/72 102/57 L Pulse Oximetry 99 98 99 Oxygen Delivery Method Room Air Room Air Room Air 07/30/23 01:26 Temperature Pulse Rate 83 Respiratory Rate 18 Blood Pressure 112/60 Pulse Oximetry 98 Oxygen Delivery Method Room Air BMI result Body Mass Index 18.9 Course Course Course Narrative: This is a rapid medical exam: Additional HPI, ROS, PE not included below will be deferred to primary provider. Patient is a 62-year-old female presenting to the emergency department with complaint of bilateral knee pain for the past few months. Had MRI of left knee which showed degenerative disease. States when she flexes her left knee her foot goes numb starting yesterday. Has not seen orthopedics recently. States pain is keeping her awake and night and she's not able to function. Medications Administered Discontinued Medications Generic Name Dose Route Start Last Admin Trade Name Freq PRN Reason Stop Dose Admin Sodium Chloride 1,000 mls @ 999 mls/hr 07/29/23 22:52 07/30/23 01:09 Ns IV 07/29/23 23:52 Infused .Q1H1M STA Infusion Ketorolac Tromethamine 15 mg 07/29/23 22:52 07/29/23 23:41 Ketorolac Tromethamine 15 Mg/Ml Vial IVPUSH 07/29/23 22:53 15 mg ONCE STA Administration Morphine Sulfate 2 mg 07/30/23 00:52 07/30/23 01:09 Morphine Sulfate 2 Mg/Ml Cartridge IVPUSH 07/30/23 00:53 2 mg ONCE ONE Administration Protocol Ondansetron HCl 4 mg 07/30/23 00:52 07/30/23 01:09 Ondansetron Hcl 4 Mg/2 Ml Vial IVPUSH 07/30/23 00:53 4 mg ONCE ONE Administration Prednisone 40 mg 07/30/23 01:13 07/30/23 01:44 Prednisone 20 Mg Tablet PO 07/30/23 01:14 40 mg ONCE ONE Administration Medical Decision Making Medical Decision Making [facility] Narrative: 62-year-old female with a history of neuropathy, asthma, diverticulosis, kidney stones, celiac sprue who presents emergency department for evaluation bilateral knee pain, lightheadedness, dizziness, tachycardia shortness of breath. Differential diagnosis: ?Includes but is not limited to myocardial infarction, myocardial ischemia, anemia, electrolyte abnormalities, inflammatory arthritis, tendinitis Following evaluation was ordered: CBC, CMP, CK, D-dimer, ESR, lipase, troponin, lactic acid, C-reactive protein, PT/INR, PTT, blood cultures x2, 12 EKG Patient was initially treated with the following: Toradol 15 mg IV Course: My interpretation the patient's laboratory evaluation is as follows: CBC was normal. CMP was normal. ESR and CRP were normal. Troponin was below detectable limits. D-dimer was less than 150. The patient patient did get some improvement with the Toradol IV however pain returned and she was given morphine 2 mg IV. Patient most likely has an undiagnosed connective tissue disorder states she has had improvement of her pain in the past with steroids. She was given prednisone 40 mg orally and started on a prednisone pulse dose of 40 mg once a day and decreased by 10 mg every 2 days. She was given printed and verbal instructions and discharged home. Admission/Observation Consideration of admission/observation: Escalation of care including admission/observation considered Lab Data [facility] Lab Attestation statement: I reviewed the patient's lab results. 07/29/23 23:26 07/29/23 23:26 Labs: Lab Results 07/29/23 Range/Units 23:26 WBC 5.9 (4.8-10.8) X10*3/uL RBC 4.21 (4.20-5.50) X10*6/uL Hgb 12.3 (12.0-16.0) g/dl Hct 37.2 (37.0-47.0) % MCV 88.4 (80.0-98.0) fL MCH 29.2 (27.0-33.0) pg MCHC 33.1 (31.0-35.0) g/dl RDW 12.6 (11.0-16.0) % Plt Count 218 D (160-400) X10*3/uL MPV 10.7 (9.4-12.3) fL Immature Gran % (Auto) 0.3 (0.0-0.4) % Neut % (Auto) 57.1 (45-73) % Lymph % (Auto) 30.4 (20-40) % Morris % (Auto) 7.2 (2-11) % Eos % (Auto) 4.1 H (0-4) % Baso % (Auto) 0.9 (0-2) % Lymph # (Auto) 1.8 (1.2-4.9) X10*3/uL Morris # (Auto) 0.4 (0.1-1.2) X10*3/uL Eos # (Auto) 0.2 (0.0-0.4) X10*3/uL Baso # (Auto) 0.1 (0.0-0.2) X10*3/uL Abs Immat Gran (auto) 0.02 (0.00-0.03) X10*3/uL Absolute Neuts (auto) 3.4 (2.0-8.3) x10*3/uL Absolute Nucleated RBC 0.000 (0.0-0.012) X10*3/uL Nucleated RBC % (auto) 0.0 (0.0-0.2) /100WBC ESR 16 (0-20) MM/HR PT 11.0 L (11.1-13.3) SEC INR 0.9 (0.9-1.1) APTT 31.2 (26.0-36.8) SEC D-Dimer High Sensitivty < 150 NG/ML Sodium 142 (135-145) mmol/L Potassium 4.0 (3.3-5.1) mmol/L Chloride 104 (96-108) mmol/L Carbon Dioxide 28 (22-29) mmol/L Anion Gap 14 (12-20) BUN 23 H (9-16) mg/dL Creatinine 0.74 (0.5-1.4) mg/dL Estim Creat Clear Calc 55.8 Estimated GFR > 60 Random Glucose 91 (60-115) mg/dL Lactic Acid 0.8 (0.5-2.0) mmol/L Calcium 10.0 (8.4-10.2) mg/dL Total Bilirubin 0.3 (0.0-1.0) mg/dL AST 19 (5-31) U/L ALT 10 (0-31) U/L Alkaline Phosphatase 52 (39-117) U/L Total Creatine Kinase 37 (26-140) U/L Troponin I High Sens < 2.7 (<3.5-17.0) ng/L C-Reactive Protein < 0.10 (< or = 0.50) mg/dL Total Protein 7.2 (6.5-8.0) g/dL Albumin 4.4 (3.5-5.0) g/dL Lipase 28 (8-78) U/L Independent Interpretation I performed an independent interpretation of an: EKG Interpretation: My independent interpretation patient's 12 EKG at 23:15 hours is as follows: Normal sinus rhythm with a rate of 75, normal NJ interval, QRS duration QTC interval, no ST segment elevation, no ST segment depression, flattened T-wave in lead 1, inverted T-wave V1. Compared to EKG dated 06/25/2023 flattened T-wave lead 1 in inverted T-wave V1 are old. Q-waves in V1 and V2 are also old. Independent Historian Clinical information obtained from an independent historian. History obtained from or confirmed by: Spouse External Record Review External record reviewed: Office record and Outpatient record Prescription Management I considered prescription management with: Other (Prednisone) Discharge Plan Discharge Clinical Impression: Dizziness, Acute dyspnea, Joint pain Patient Disposition: Home, Self-Care Additional Instructions: Your CBC and CMP were normal Your troponin was below detectable limits in your EKG was normal except for Q- waves in V1 and V2 which she had since at least 2020 Your ESR and CRP were normal. Your D-dimer was less than 150 Your chest x-ray on my interpretation revealed no acute findings. At this time, I believe that you may have some type of undiagnosed connective tissue disorder causing your joint and tendon pain. Take prednisone 10 mg pills, 4 pills orally for 5 days then decrease by 1 pill every 2 days until you complete the prescription. Take extra-strength Tylenol 500 mg pills, 2 pills every 6 hours as needed for pain Follow-up with your doctor in 2 days. Please return to the emergency department if your symptoms get worse or if you develop any symptoms that are concerning to you. Please see the work note Prescriptions: New prednisone 10 mg tablet 10 mg PO DIRECTED Qty: 32 0RF Rx Instructions: Day 1 through 5 take 4 pills then decrease by 1 pill every 2 days until you complete prescription No Action pregabalin [Lyrica] 25 mg capsule 25 mg PO DAILY Qty: 14 0RF lorazepam [Ativan] 0.5 mg tablet 0.5 mg PO TID PRN (Reason: anxiety) Qty: 7 0RF ondansetron 4 mg tablet,disintegrating 4 mg PO Q8H PRN (Reason: nausea and vomiting) Qty: 7 0RF methylprednisolone [Medrol (Addison)] 4 mg tablets,dose pack 4 mg PO DAILY Qty: 21 0RF diclofenac epolamine 1.3 % patch 12 hour 1 patch topical BID Qty: 30 1RF albuterol sulfate 90 mcg/actuation HFA aerosol inhaler 2 puff inhalation Q4-6H PRN Stand Alone Forms: Work/School Release Interventions: ED Discharge Assessment Last Done: 07/30/23 01:52 Discharge Date/Time: 07/30/23 01:52
[2023-07-29 22:33] VITALS: BP 115/72; PULSE 81; RESP 18; TEMP 36.9; O2SAT 98
--- NOTE | 2023-07-29 22:34 | MHC.EDTECH ---
Hourly rounds and vitals completed,patient was giving a warm pack for her left knee to help with her discomfort. RN aware
--- NOTE | 2023-07-29 22:53 | ECG_ITS ---
Test Reason : DIZZINESS Blood Pressure : / mmHG Vent. Rate : 077 BPM Atrial Rate : 077 BPM P-R Int : 176 ms QRS Dur : 102 ms QT Int : 402 ms P-R-T Axes : 078 046 086 degrees QTc Int : 454 ms Artifact in tracing Normal sinus rhythm cannot exclude Septal infarct (cited on or before 10-JUL-2020) Abnormal ECG When compared with ECG of 25-JUN-2023 13:17, No significant change was found Referred By: Nilesh Rivera Electronically Signed By:JENNIFER DA SILVA
[2023-07-29 23:30] VITALS: BP 102/57; PULSE 80; RESP 15; TEMP 36.6; O2SAT 99
--- NOTE | 2023-07-29 23:31 | MHC.EDTECH ---
This Tech assumed care of this PT. Pt changed over into a hospital gown and placed on to a special education curriculum specialist. EKg completed and handed to a provider. Bloodwork sent to the lab for processing
[2023-07-29 23:38] LABS: MANUAL DIFF FLAG NO
[2023-07-29] MEDS: Ketorolac Tromethamine 15 MG/ML VIAL IVPUSH (23:41)
[2023-07-29] MEDS: 0.9 % Sodium Chloride 1,000 ML 999 ML IV (23:42)
[2023-07-29 23:48] LABS: Basophils Absolute Auto 0.1 X10*3/uL (0.0-0.2); Basophils Percent Auto 0.9 % (0-2); Eosinophils Absolute Auto 0.2 X10*3/uL (0.0-0.4); Eosinophils Percent Auto 4.1 % (0-4); Hematocrit 37.2 % (37.0-47.0); Hemoglobin 12.3 g/dl (12.0-16.0); Imm Gran Abs Auto 0.02 X10*3/uL (0.00-0.03); Imm Gran Pct Auto 0.3 % (0.0-0.4); Lymphocytes Absolute Auto 1.8 X10*3/uL (1.2-4.9); Lymphocytes Percent Auto 30.4 % (20-40); Mean Corpuscular HGB Conc 33.1 g/dl (31.0-35.0); Mean Corpuscular Hemoglobin 29.2 pg (27.0-33.0); Mean Corpuscular Volume 88.4 fL (80.0-98.0); Mean Platelet Volume 10.7 fL (9.4-12.3); Monocytes Absolute Auto 0.4 X10*3/uL (0.1-1.2); Monocytes Percent Auto 7.2 % (2-11); Neutrophils Absolute Auto 3.4 x10*3/uL (2.0-8.3); Neutrophils Percent Auto 57.1 % (45-73); Platelet Count 218 X10*3/uL (160-400); Red Blood Count 4.21 X10*6/uL (4.20-5.50); Red Cell Distribution Width 12.6 % (11.0-16.0); White Blood Count 5.9 X10*3/uL (4.8-10.8)
[2023-07-29 23:50] LABS: Lactic Acid 0.8 mmol/L (0.5-2.0)
[2023-07-29 23:55] LABS: Alanine Aminotransferase 10 U/L (0-31); Albumin Level 4.4 g/dL (3.5-5.0); Alkaline Phosphatase 52 U/L (39-117); Anion Gap 14 (12-20); Aspartate Amino Transferase 19 U/L (5-31); Bilirubin Total 0.3 mg/dL (0.0-1.0); Blood Urea Nitrogen 23 mg/dL (9-16); C Reactive Protein < 0.10 mg/dL (< or = 0.50); Carbon Dioxide 28 mmol/L (22-29); Chloride 104 mmol/L (96-108); Creatinine Clr Calc Pharmacy 55.8; Estimated Glomerular Filt Rate > 60; Glucose Random 91 mg/dL (60-115); Lipase 28 U/L (8-78); Sodium 142 mmol/L (135-145); Total Protein 7.2 g/dL (6.5-8.0)
[2023-07-29 23:56] LABS: INTERNATIONAL NORM RATIO 0.9 (0.9-1.1)
[2023-07-29 23:59] LABS: D Dimer High Sensitivity < 150 NG/ML; Partial Thromboplastin Time 31.2 SEC (26.0-36.8)
[2023-07-30 00:08] LABS: Troponin-I High Sensitivity < 2.7 ng/L (<3.5-17.0)
[2023-07-30 00:26] LABS: Erythrocyte Sedimentation Rate 16 MM/HR (0-20)
[2023-07-30] MEDS: Morphine Sulfate 2 MG/ML CARTRIDGE IVPUSH (01:09)
[2023-07-30] MEDS: ondansetron HCL 4 MG/2 ML VIAL IVPUSH (01:09)
[2023-07-30 01:26] VITALS: BP 112/60; PULSE 83; RESP 18; O2SAT 98
[2023-07-30] MEDS: predniSONE 20 MG TABLET 40 MG PO (01:44)
== END 2023-07-30 01:52 | disposition home or self-care (01) ==
PROVIDERS: Emergency Provider Emergency Medicine Emergency Medical Services; PCP Internal Medicine
DX: M25.561 Pain in right knee (principal); M25.562 Pain in left knee; R06.02 Shortness of breath; R42 Dizziness and giddiness; R94.31 Abnormal electrocardiogram [ECG] [EKG]; R00.0 Tachycardia, unspecified; Z79.899 Other long term (current) drug therapy
CPT/HCPCS: 36415; 71046; 80053; 82550; 83605; 83690; 84484; 85025; 85379; 85610; 85652; 85730; 86140; 87040; 93005; 96361; 96374; 96375; 99285; J1885; J2270; J2405

== ENCOUNTER → 2023-07-29 22:53 | Outpatient (BNV) | payer BC, SELFPAY | PROVIDERS: Emergency Provider Emergency Medicine Emergency Medical Services; PCP Internal Medicine; Visit Provider Internal Medicine | DX: R94.31 Abnormal electrocardiogram [ECG] [EKG] (principal) | CPT/HCPCS: 93010 ==

== ENCOUNTER 2024-01-19 21:43 | Emergency (ER) | payer BC, SELFPAY ==
--- NOTE | 2024-01-19 21:49 | ED_ITS ---
HPI - Extremity Problem General Chief complaint: Extremity Injury, Lower Stated complaint: knee pain from fall yesterday Time Seen by Provider: 01/19/24 21:48 Source: patient and EMS Mode of arrival: EMS Limitations: no limitations History of Present Illness ED Provider: Dr. Hamilton HPI Narrative: patient with trip and fall on carpet yesterday, injuring her knee and hip. See was seen at [facility] had xrays of her hip and knee all on the left. I have reviewed those results, negative for fracture. Tonight having a lot of pain. Onset (ago): day(s) Pain Consistency: constant Location: left and knee Related Data Home Medications ?Medication ?Instructions ?Recorded ?Confirmed albuterol sulfate 90 mcg/actuation 2 puff inhalation Q4-6H PRN 04/07/22 06/08/22 aerosol inhaler Previous Rx's ?Medication ?Instructions ?Recorded lorazepam 0.5 mg tablet (Ativan) 0.5 mg PO TID PRN anxiety #7 tabs 04/23/22 pregabalin 25 mg capsule (Lyrica) 25 mg PO DAILY #14 caps 04/23/22 ondansetron 4 mg disintegrating 4 mg PO Q8H PRN nausea and 04/25/22 tablet vomiting #7 tabs methylprednisolone 4 mg tablets in 4 mg PO DAILY #21 ea 02/06/23 a dose pack (Medrol (Addison)) diclofenac epolamine 1.3 % 1 patch topical BID #30 ea 05/10/23 transdermal 12 hour patch prednisone 10 mg tablet 10 mg PO DIRECTED #32 tabs 07/30/23 Allergies Allergy/AdvReac Type Severity Reaction Status Date / Time gluten [Gluten] Allergy Severe PT HAS Verified 01/19/24 21:54 CELIAC DISEASE Sulfa (Sulfonamide Allergy Severe LUPUS-LIKE Verified 01/19/24 21:54 Antibiotics) benztropine [Cogentin] Allergy Intermediate Rash Verified 01/19/24 21:54 ciprofloxacin [From Cipro] Allergy Intermediate TENDONOPATH Verified 01/19/24 21:54 Y/NEUROPATH Y shellfish derived Allergy Intermediate Hives Verified 01/19/24 21:54 promethazine Allergy Unknown Unknown Verified 01/19/24 21:54 nitrofurantoin AdvReac Severe Drug Verified 01/19/24 21:54 [From Macrodantin] induced Hep Mandelamine Allergy Intermediate Drug Uncoded 07/29/23 20:50 induced Hep QUINOLONES Allergy Intermediate Unknown Uncoded 07/29/23 20:50 Review of Systems Review of Systems: Yes all other systems are reviewed and are negative Neurologic: Denies Sensory deficit (Neuro) [facility] Past Medical History Medical History Rheumatoid factor positive Post-COVID chronic cough Neuropathy Asthma Diverticulosis Kidney stone Celiac sprue Surgical History H/O cystoscopy S/P cardiac cath (~07/2020) Hx of excision of mass (~1999) Family History Family History Mother Cervical cancer Uterine cancer History of thyroid disorder Maternal Grandmother Diabetes Stroke Maternal Grandfather Diabetes Coronary artery disease Paternal Grandmother Uterine cancer Diabetes Stroke Paternal Grandfather Stroke Father Bladder cancer Social History Social History Household Members: Spouse Household Members Other:: Son Alcohol intake: current Alcohol intake frequency: holidays/special occasions only Patient Tobacco Use Status: Never used Tobacco Smoked in Last 30 Days: No Use of substances other than those prescribed or required for medical reasons: No Advance Directives Date on File: 04/27/22 Patient : No 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[place] Physical Exam Vital Signs: Vital Signs: Last Vital Signs Temp 97.9 F 01/19/24 21:53 Pulse 90 01/19/24 21:53 Resp 20 01/19/24 21:53 BP 117/67 01/19/24 21:53 Pulse Ox 99 01/19/24 21:53 O2 Del Method Room Air 01/19/24 21:53 BMI result Body Mass Index 18.9 Const: Other: anxious General: healthy appearing Nutritional Appearance: average body habitus Orientation/consciousness: oriented to person and patient oriented x3 Limitations: no limitations HEENT: Head: Yes normal to inspection Ears: external ears normal General nose exam: Normal external nose present Mouth: Normal oral and palatal mucosa present and oropharynx normal Throat: Yes posterior oropharynx normal Eyes: General: appearance normal, both eyes and all related structures Neck: Other: supple Neck: Yes normal visual inspection Chest: Chest palpation & inspection: normal inspection of the chest Resp: Auscultation: clear to auscultation bilaterally Cardio: Jugular venous distension: no JVD Rate: regular rate Rhythm: regular rhythm Heart sounds: S1 normal heart sound present and S2 normal heart sound present GI: Inspection: Yes normal to inspection Palpation (GI): Soft to palpation, nontender and No hepatosplenomegaly present Auscultation: normal bowel sounds : General: Yes no CVA tenderness Back/Spine/Pelvis: Back: no CVA tenderness Skin: General skin exam: no rashes or lesions noted Neuro: General: oriented to person and patient oriented x3 Cranial nerves: Yes CN's II-XII intact bilaterally Motor exam (neuro): 5/5 motor strength present throughout Sensory Exam: No Sensory deficit (Neuro) Extrem: Other: left knee, no effusion, I was able to range the knee, no laxity anteriorly or posterior. Lateral knee pain along joint line Psych: Appearance: grossly normal Course Reevaluation(s) Reevaluation #1: patient with likely meniscus tear and or lateral collateral ligament injury. Will place in knee immobilizer and have her see ortho Time: 23:52 Medical Decision Making Differential Diagnosis Differential Diagnoses: The differential diagnosis associated with the presentation includes (ACL tear, PCL tear, meniscus injury, lateral collateral injury) Independent Historian Clinical information obtained from an independent historian. History obtained from or confirmed by: Spouse (Dr. Franks) External Record Review External record reviewed: Prior outpatient radiology and Outside ED record Tests considered The following testing was considered but not selected: MRI of knee considered but at this time that can be performed as an outpatient Prescription Management I considered prescription management with: Pain Medication (no narcotics at this time) Discharge Plan Discharge Clinical Impression: Acute internal derangement of knee Patient Disposition: Home, Self-Care Prescriptions: No Action pregabalin [Lyrica] 25 mg capsule 25 mg PO DAILY Qty: 14 0RF lorazepam [Ativan] 0.5 mg tablet 0.5 mg PO TID PRN (Reason: anxiety) Qty: 7 0RF ondansetron 4 mg tablet,disintegrating 4 mg PO Q8H PRN (Reason: nausea and vomiting) Qty: 7 0RF methylprednisolone [Medrol (Addison)] 4 mg tablets,dose pack 4 mg PO DAILY Qty: 21 0RF prednisone 10 mg tablet 10 mg PO DIRECTED Qty: 32 0RF Rx Instructions: Day 1 through 5 take 4 pills then decrease by 1 pill every 2 days until you complete prescription diclofenac epolamine 1.3 % patch 12 hour 1 patch topical BID Qty: 30 1RF albuterol sulfate 90 mcg/actuation HFA aerosol inhaler 2 puff inhalation Q4-6H PRN [place] [facility] [place] [facility] [Provider Group] - 5 days Print Language: Arabic
[2024-01-19 21:53] VITALS: BP 117/67; PULSE 90; RESP 20; TEMP 36.6; O2SAT 99; BMI 18.9
--- NOTE | 2024-01-19 22:51 | MHC.EDTECH ---
this tech assisted the patient from bed to commode and back. pt unable to bear much weight on left leg
--- OUTSIDE RECORDS SUMMARY | 2024-01-19 23:57 | XMS_ITS | Continuity of Care Document ---
Author Organization [facility] [place] Address [address] [place] [address]- Care Team Providers Care Signal Apprentice Name Role Phone Nancy Eden MD, Millicent Primary Care Phys ician Encounter 12/31/23 - 01/07/24 [facility] [address], [address] [place] [address]- Attending Physician: Millicent Lugo MD Admitting Physician: Nancy Eden MD, Millicent Referring Physician: Nancy Eden MD, Millicent Allergies, Adverse Reactions, Alerts Substance Reaction Severity Status ciprofloxacin 1 Active Compazine Active Glutens malabsorption Active sulfa drugs Active quinolone antibiotics 2 Peripheral neuropathy Active shellfish Active Macrodantin rash Active Cogentin double vision, migraine Acti ve Mandelamine Active Bee Stings Active Contrast Dye [...] opioid drug. Start Date: 03/12/21 Status: Ordered LORazepam 0.5 mg oral tablet 0.5 tablet = 0.25 mg, By Mouth, Once, 0 Refills, Maintenance, 08/04/22 15:44:00 EST, Tablet, Partial fill upon patient request if the prescription is for a schedule II opioid drug. Start Date: 08/04/22 Status: Ordered Metoprolol Succinate ER 25 mg oral tablet, extended release 0.5 tablet = 12.5 mg, By Mouth, Daily, # 45 tablet, 3 Refills, Maintenance, 08/03/23 17:09:00 EST, ER Tablet, [facility], Partial fill upon patient request if the prescription is for a schedule II opioid drug., 155, cm, 08/03/23 16:41:00... Start Date: 08/03/23 Status: Ordered predniSONE 10 mg oral tablet 4 tablet = 40 mg, By Mouth, Daily, # 20 tablet, 0 Refills, Maintenance, 08/03/23 16:51:00 EST, Tablet, Partial fill upon patient request if the prescription is for a schedule II opioid drug. Start Date: 08/03/23 Stop Date: 08/08/23 Status: Ordered ProAir HFA 90 mcg/inh inhalation aerosol with adapter 2, puffs, Inhalation, Every 6 hours, PRN Start Date: 11/02/18 Status: Ordered Problem List Condition Confirmation Course Effective Dates Status Health St atus Informant CELIAC DISEASE Confirmed Active GENERALIZED ANXIETY DISORDER Confirmed Active History of COVID-19 Confirmed Active IVCD (intraventricular conduction defect) Confirmed Active Palpitations Confirmed Active Results Radiology Reports * Exam Date Time Procedure Performing Provider Status 12/31/23 11:35 AM MM Digital Mammo Screening Clotilde , Apri l; Auth (Verified) Notes: (MM Digital Mammo Screening) Reason For Exam: Z12.31 ROUTINE SCREENING RESULT: MM Digital Mammo Screening PROCEDURE: MM Digital Mammo Screening INDICATION: Screening for breast cancer. No known palpable abnormalities. COMPARISON: No prior. TECHNIQUE: Full-field digital CC and MLO 3D tomosynthesis images of both breasts were acquired. Computer-aided detection (CAD) was utilized in the interpretation of this study. DENSITY: There are scattered areas of fibroglandular density. FINDINGS: No suspicious masses, suspicious microcalcifications, or areas of architectural distortion are seen in either breast to suggest malignancy. IMPRESSION: No mammographic evidence of malignancy. RECOMMENDATION: Annual mammographic screening BI-RADS: 1 (Negative) Lay letter mailed to patient WSN: [id number] Ordering Physician: Millicent Lugo Dictated By: Makenna Tyson MD Dictated Date/Time: 12/31/23 3:02 pm Reviewed By: Makenna Tyson MD Signed By: Makenna Tyson MD Signed Date/Time: 12/31/23 3:02 pm Transcribed By: MAREN Managing Consultant Clinical Professor Date/Time: 12/31/23 2:57 pm Birads: Social History Social History Type Response Smoking Status Never smoker entered on: 10/23/14 Sex Patient Care team information Care Team Personnel Name: Jessie Augustin Position: [facility] Outreach Member Role: Lifetime Consulting Physician Name: Paulo Patterson RN Position: S RN Member Role: Primary Care Nurse Name: Millicent Lugo MD Position: Reference Physician Member Role: PCP Address: Address: [address] [place] [address] Name: Tara Milian RN Position: S RN Member Role: Primary Care Nurse Name: Rmaandeep Kumari Position: S RN Member Role: Primary Care Nurse Care Team Related Persons Name: ZAYNAB GERARDO Address: [facility] Name: AYAAN EPPS Name: LAZARA CASANOVA Address: home [address] [place] [address] Name: RASHEEDA LIZARRAGA Address: home [address] [place] [address]
--- OUTSIDE RECORDS SUMMARY | 2024-01-19 23:57 | XMS_ITS | Continuity of Care Document ---
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 Name Role Phone Nancy Eden MD, Millicent Primary Care Phys ician Encounter [facility] Date(s): 08/03/23 - 08/10/23 [facility] [address] [place] [address]- [place] Encounter Diagnosis History of COVID-19(Discharge Diagnosis) - 08/03/23 IVCD (intraventricular conduction defect)(Discharge Diagnosis) - 08/03/23 Palpitations(Discharge Diagnosis) - 08/03/23 Attending Physician: Geovanna Alford MD Allergies, Adverse Reactions, Alerts Substance Reaction [...] Refills, Maintenance, 08/03/23 17:09:00 EST, ER Tablet, [facility], Partial fill upon patient request if [...] conduction defect) Confirmed Active Palpitations Confirmed Active Diagnosis Diagnosis Type Effective Dates Health Status Clinical Service Informant History of COVID-19 Discharge Diagnosis 08/03/23 IVCD (intraventricular conduction defect) Discharge Diagnosis 08/03/23 Palpitations Discharge Diagnosis 08/03/23 Vital Signs Most recent to oldest [Reference Range]: 1 Height 155 cm (08/03/23 4:41 PM) Weight 45.7 kg (08/03/23 4:41 PM) Oxygen Saturation [94-100 %] 100 % (08/03/23 4:41 PM) Pulse Rate [55-90 bpm] 91 bpm *H* (08/03/23 4:41 PM) Body Mass Index [18.5-24.99 kg/m2] 19.02 kg/m2 (08/03/23 4:41 PM) Blood Pressure [90-138/55-84 mm Hg] 128/ 79mm Hg (08/03/23 4:41 PM) Mode of Delivery (Oxygen) Room air (08/03/23 4:41 PM) Blood pressure sites Arm, left (08/03/23 4:41 PM) Weight Obtained Via Bed scale (08/03/23 4:41 PM) Social History Social History Type Response Smoking Status Never smoker entered on: 10/23/14 Sex Cardiology Outpatient Note * Prashanth DE JESUS, Geovanna Ruff: MODIFY, PERFORM Event Display: Cardiology Note Office Authored Date: Patient: ??AYAAN TARANGO ? Age:??62 Years?Sex:??Female?:??1960?? Patient Hx Cardiology Shared Clinical Summary 1. ??Palpitations, question some SVT and mostly sinus tachycardia, referred for ILR not placed. ??See below. 2. ??Chest pain. ??Negative catheterization. 3. ??Question vasospasm, amlodipine intolerance. 4. ??Question bicuspid aortic valve, found incidentally. 5. ??Incomplete left bundle versus IVCD. ?? HISTORY OF PRESENT ILLNESS: ??Ms. Tarango returns. ??She was to have an ILR placed as we neverreally found a diagnosis with a 30-day loop recorder. ??However, her symptoms of palpitations abated. ??She has only had a couple of episodes maybe over the past week lately and a little lightheadedness that brought her to the ER in the past; therefore, she figured there was no reason to get the ILR. ??Her only other complaint is she gets occasional lower extremity edema bilaterally if she does wear compression stockings. ??As stated, reviewing a echo around the time I last saw her, there was some question of fused aortic raphe versus a bicuspid valve. Indication for Consult PALPS TACHYCARDIA History of Present Illness/Interval History Past visit: This is a 61-year-old female here for follow-up evaluation.?? She??has a number of complaints which started after COVID-19 infection in February.?? She notes??getting COVID at work, subsequently??having??periods of shortness of breath, fatigue,??feeling an increase in her baseline heart rate.?? 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 She is not describing angina or??heart failure symptoms.?? She occasionally gets palpitations,??this is??similar to episodes that occur previously??though often more mild.?? Sometimes she has an awareness of her heart beating??sometimes more skipped beating???this often occurs at rest.?? Previously she was described as having??more significant palpitation with??past work-up??showingmostly??sinus rhythm,??she had a cardiac catheterization based on concern for ischemic ECG changes???no coronary artery disease.?? Review of EKGs??previously showed normal sinus rhythm,??her electroca rdiogram has IVCD??more recently.?? She had an echocardiogram in??the fall which showed normal LV function,??fused??noncoronary and left coronary cusp of the aortic valve???functionally bicuspid??with no stenosis or regurgitation.?? First thing in the morning when she gets up she will feel little lightheaded.?? She denies presyncopal symptoms otherwise. ?? Current visit:??She had covid again and since then has had feeling of higher HRs, compounded with work stressors. No other symptoms. Physical Exam Vitals & Measurements HR:??91??(Peripheral)?? BP:??128/79?? SpO2:??100%?? HT:??155??cm?? WT:??45.7??kg?? BMI:??19.02?? Weight lb/oz: 100 lb 12 oz HEENT: EOMI thin neck: JVD flat Pulm: CTAB Cardiac: RRR no m/r/g GI: soft +BS EXT: no edema Neuro:??grossly nonfocal Skin:??warm and dry Psych: alert and coop Assessment/Plan 1.??History of COVID-19 2.??IVCD (intraventricular conduction defect) 3.??Palpitations This is 62-year-old female with noted issues??here for follow-up evaluation.?? She??describes a number of complaints occurring since her COVID-19 infection,??I suspect she has??long COVID syndrome based on her description.?? Fatigue, brain fog??and shortness of breath??as well as feeling increase in resting heart rate would all be consistent with this.?? While she has a history of palpitations it is unclear that??her palpitations are more significant or sustained???mostly which she notices is her heart rate being often in the 90s now??just with standing.?? She is active and exercising, denies??presyncope symptoms with exertion.?? I do not think she has POTS.?? In the past she had a monitoring given question of??SVT,??this is described as unremarkable.?? Her electrocardiogram??previously had shown normal sinus rhythm, more recently with IVCD.?? She had a cardiac catheterization which showed no??obstructive coronary artery disease.?? Her recent echocardiogram showed normal LV function,??she is fused??leaflets of her aortic valve though no??stenosis or regurgitation.?? Her cardiovascular exam today is unremarkable.?? I suspect??her symptoms are more from??post-COVID rather than??underlying arrhythmia.??No significant arrhythmias. She had worsening of symptoms again with covid infection.??I suggesting trialling metoprolol succinate 12.5mg qd.??She will see me in 1 year.?? Interestingly at least at the time of her last monitor the majority of her symptom triggered events correlated with sinus rhythm.?? Her 1 fast heart rate??trigger??may be sinus tach versus A. tach. Allergies Bee Stings Cogentin??(double vision, migraine) Compazine Contrast Dye Glutens??(malabsorption) Macrodantin??(rash) Mandelamine ciprofloxacin quinolone antibiotics??(Peripheral neuropathy) shellfish sulfa drugs Home Medications albuterol 0.083% inhalation solution, 1 vial, Neb, Every 4 hours, PRN betamethasone-clotrimazole 0.05%-1% topical lotion, 1 application, Topically, 2 times a day, PRN clobetasol 0.05% topical cream, 1 application, Topically, 2 times a day, PRN LORazepam 0.5 mg oral tablet, 0.25 mg= 0.5 tablet, By Mouth, Once Metoprolol Succinate ER 25 mg oral tablet, extended release, 12.5 mg= 0.5 tablet, By Mouth, Daily, 3 refills predniSONE 10 mg oral tablet, 40 mg= 4 tablet, By Mouth, Daily ProAir HFA 90 mcg/inh inhalation aerosol with adapter, 2 puffs, Inhalation, Every 6 hours, PRN Diagnostic Impression Echo Echocardiogram - Complete ?? 08:22:52 Summary The left ventricular size is normal. Left ventricular wall thickness is normal. The LV systolic function is normal . The left ventricular ejection fraction is 60-65 %. There are no regional wall motion abnormalities. Normal diastolic function. ?? The aortic valve appears bicuspid with fusion of the non-coronary and left coronary cusp. There is no significant aortic regurgitation. There is no significant aortic stenosis. ?? The right ventricle is normal in size and function. ?? Impressions Bicuspid but functionally normal aortic valve ?? Comparison Comparison is made to the study of March 13, 2021. There is no definite interval change. ?? Signature ?? Signed By: Vesta DE JESUS, [place] Frost Problem List/Past Medical History Ongoing Anemia Anxiety Asthma CELIAC DISEASE Celiac disease Elevated hemoglobin A1c GENERALIZED ANXIETY DISORDER GERD (gastroesophageal reflux disease) History of COVID-19 IVCD (intraventricular conduction defect) Mixed connective tissue disease Neuropathy Palpitations Vitamin D deficiency Procedure/Surgical History No qualifying data available. Social History Tobacco Never smoker Family History No family history recorded. Note * Kevin Zee: PERFORM, SIGN, VERIFY Event Display: Patient Education/Instruction Authored Date: [id number] [facility] *[facility] Clinical Summary Name AYAAN TARANGO Age 62 Years 1960 PCP Nancy Eden MD, Millicent [id number] Date 08/03/2023 16:39:00 Additional Instructions: Scheduled Appointments?? Future Appointments ?No Future Appointments Scheduled Follow-Up Instructions ?? Diagnosis Personal history of COVID-19; Nonspecific intraventricular block; Palpitations Medications: Please continue your medications until treatment is completed or stopped by your provider. Discuss any questions related to medications with your provider. New Medications [facility] [address], [place] [id number], [phone] Metoprolol (Metoprolol Succinate ER 25 mg oral tablet, extended release) 0.5 tab(s) Oral Daily. Refills: 3. Next Dose: Medications to Continue with No Changes These medications were not printed or sent to your pharmacy Albuterol (albuterol 0.083% inhalation solution) 1 vial Nebulized inhalation every 4 hours as needed Wheezing/Shortness of Breath. Next Dose: Albuterol (ProAir HFA 90 mcg/inh inhalation aerosol with adapter) 2 puff(s) Inhalation every 6 hours as needed Wheezing/Shortness of Breath. Next Dose: Betamethasone-Clotrimazole Topical (betamethasone-clotrimazole 0.05%-1% topical lotion) 1 aleksey Topically twice a day as needed. Next Dose: Clobetasol Topical (clobetasol 0.05% topical cream) 1 aleksey Topically twice a day as needed. Next Dose: Lorazepam (LORazepam 0.5 mg oral tablet) 0.5 tab(s) Oral once. Next Dose: PredniSONE (predniSONE 10 mg oral tablet) 4 tab(s) Oral Daily for 5 Days. Next Dose: No Longer Take the Following Medications Ibuprofen (Motrin Tablet) 400 Milligram Oral every 6 hours as needed Pain , Mild. Lidocaine Topical (lidocaine 5% topical film) 1 patch Topically Daily. Refills: 0. Nortriptyline (nortriptyline 10 mg oral capsule) 1 capsule Oral Daily at Bedtime. may increase to 20 mg to maximize control. Refills: 0. Pregabalin (Lyrica 25 mg oral capsule) 1 capsule Oral Daily. Allergy Info:?? Glutens; Contrast Dye; Bee Stings; Mandelamine; Compazine; Cogentin; Macrodantin; shellfish; quinolone antibiotics; sulfa drugs; ciprofloxacin Medications Given This Visit Future Orders ?No future orders Vital Signs Height 155 cm Weight 45.7 kg BMI 19.02 kg/m2 Blood Pressure 128 mm Hg/79 mm Hg Temperature Pulse Rate 91 bpm Respiratory Rate 02 Sat Mode of Delivery 100 %/Room air You can now view a summary of your hospital visit from the comfort of your home through a free online portal called Snipi. Snipi is a website that allows you to securely view your medical information including discharge summary, medications and follow-up visits. ??You can alsosend a secure electronic message to your doctor???s office to request appointments, renew medications or just ask a question. You can enroll at [email or web address] or register during your next office visit. Disclaimer:?? The information provided is of a general nature and is intended to be used in conjunction with the recommendations and advice of your health care practitioner. ??Every effort has been made to ensure that the information provided is accurate and complete at the time it is provided to you however, as your needs change, or, as new ??information becomes available, different or additional instructions may be required. If you have questions, please consult with your primary care provider or pharmacist, as appropriate. ??This information is not intended to serve as substitution for assessment and evaluation by a qualified health care provider. If you do not have a primary care provider, you may find a [facility] provider by calling [facility] at [phone]. [facility], in keeping with [facility] guidance, no longer requires face masks for staff, patientsor visitors in most situations. Similar to time spent indoors at other locations, there is the chance that you were exposed to respiratory viruses during your time with us (such as flu or COVID-19).? If you develop symptoms concerning for a viral respiratory infection, please seek testing (and treatment if indicated) from your medical provider or home test kit. For information about the plan of care including goals and instructions for your diagnosis, please see the patient education orders section of this document. Patient Education Materials?? The content of this educational material or handout may have been modified, supplemented, or adapted from its original content and format to support your individualized medical care. Patient Care team information Care Team Personnel Name: Jessie Augustin Position: [facility] Outreach Member Role: Lifetime Consulting Physician Name: Paulo Patterson RN Position: [facility] RN Member Role: Primary Care Nurse Name: Millicent Lugo MD Position: Reference Physician Member Role: PCP Address: Address: [address] [place] [address] [facility] [place], [place] [address] Name: Tara Milian RN Position: [facility] RN Member Role: Primary Care Nurse Care Team Related Persons Name: ZAYNAB GERARDO Address: [facility] Name: AYAAN EPPS Name: LAZARA CASANOVA Address: [address] [address] Name: RASHEEDA LIZARRAGA Address: [address] [address]
[2024-01-19] MEDS: Ketorolac Tromethamine 30 MG/ML VIAL IVPUSH (23:59)
[2024-01-20 01:07] VITALS: BP 109/66; PULSE 77; RESP 16; TEMP 36.6; O2SAT 97
== END 2024-01-20 01:09 | disposition home or self-care (01) ==
PROVIDERS: Emergency Provider Emergency Medicine
DX: M23.92 Unspecified internal derangement of left knee (principal); M25.562 Pain in left knee; M25.552 Pain in left hip
CPT/HCPCS: 96372; 99284; J1885

== ENCOUNTER 2024-01-24 08:53 | Outpatient (REF) | payer BC, SELFPAY | END 2024-01-24 08:54 | disposition home or self-care (01) | LOC: HO.HOSX 08:53 | PROVIDERS: Visit Provider Physician Assistant | DX: Z13.89 Encounter for screening for other disorder (principal) ==

== ENCOUNTER 2024-01-24 11:24 | Outpatient (REF) | payer BC, SELFPAY ==
--- NOTE | ~2024-01-24 | XR_ITS ---
EXAMINATION: XR KNEE, RIGHT XR KNEE, LEFT CLINICAL INFORMATION: Bilateral knee pain. COMPARISON: Left knee radiographs dated 05/10/2023 and right knee MRI dated 04/25/2022. TECHNIQUE: AP view of the right and left knee. Lateral and sunrise view of the left knee. FINDINGS: Right knee: Mild medial compartment joint space narrowing. No marginal osteophytes. No osseous erosion. No abnormal soft tissue calcification. No fracture or dislocation. Left knee: Mild cortical irregularity at the weightbearing lateral tibial plateau with subchondral linear sclerosis, likely indicating a minimally displaced subchondral fracture. No joint space narrowing or marginal osteophytes. No concerning lytic or blastic osseous lesion. No abnormal soft tissue calcification. Trace joint effusion. XR/XR knee RT 1V IMPRESSION: RIGHT KNEE: Mild medial compartment joint space narrowing. LEFT KNEE: Probable minimally displaced subchondral fracture at the weightbearing lateral tibial plateau. Trace joint effusion. Electronically signed by: Francis Morgan MD 01/28/2024 10:34 AM EDT
--- NOTE | ~2024-01-24 | XR_ITS ---
EXAMINATION: XR KNEE, RIGHT XR KNEE, LEFT CLINICAL INFORMATION: Bilateral knee pain. COMPARISON: Left knee radiographs dated 05/10/2023 and right knee MRI dated 04/25/2022. TECHNIQUE: AP view of the right and left knee. Lateral and sunrise view of the left knee. FINDINGS: Right knee: Mild medial compartment joint space narrowing. No marginal osteophytes. No osseous erosion. No abnormal soft tissue calcification. No fracture or dislocation. Left knee: Mild cortical irregularity at the weightbearing lateral tibial plateau with subchondral linear sclerosis, likely indicating a minimally displaced subchondral fracture. No joint space narrowing or marginal osteophytes. No concerning lytic or blastic osseous lesion. No abnormal soft tissue calcification. Trace joint effusion. XR/XR knee LT 3V IMPRESSION: RIGHT KNEE: Mild medial compartment joint space narrowing. LEFT KNEE: Probable minimally displaced subchondral fracture at the weightbearing lateral tibial plateau. Trace joint effusion. Electronically signed by: Francis Morgan MD 01/28/2024 10:34 AM EDT
== END 2024-01-24 11:25 | disposition home or self-care (01) ==
LOC: HO.XRAY 11:24
PROVIDERS: PCP Internal Medicine; Visit Provider Physician Assistant
DX: M25.561 Pain in right knee (principal); M25.562 Pain in left knee
CPT/HCPCS: 73560; 73562

== ENCOUNTER 2024-01-24 12:22 | Outpatient (AMB) | payer BC, SELFPAY ==
--- NOTE | 2024-01-24 12:19 | A.OFFVIS_ITS ---
Intake Visit Reasons: OV, Patient fall 01/18/24 L knee pain Allergies gluten [Gluten] Allergy (Severe, Verified 01/19/24 21:54) PT HAS CELIAC DISEASE Sulfa (Sulfonamide Antibiotics) Allergy (Severe, Verified 01/19/24 21:54) LUPUS-LIKE benztropine [Cogentin] Allergy (Intermediate, Verified 01/19/24 21:54) Rash ciprofloxacin [From Cipro] Allergy (Intermediate, Verified 01/19/24 21:54) TENDONOPATHY/NEUROPATHY shellfish derived Allergy (Intermediate, Verified 01/19/24 21:54) Hives promethazine Allergy (Unknown, Verified 01/19/24 21:54) Unknown nitrofurantoin [From Macrodantin] Adverse Reaction (Severe, Verified 01/19/24 21:54) Drug induced Hep Mandelamine Allergy (Intermediate, Uncoded 07/29/23 20:50) Drug induced Hep QUINOLONES Allergy (Intermediate, Uncoded 07/29/23 20:50) Unknown HPI HPI OV, Patient fall 01/18/24 L knee pain: Details: 63 yo female presents to the office today . She states last wednesday she sustained a fall at home and fell on her knees and she does not recall twisting the leg, but does remember the left knee being bent completly back. She does have a h/o left knee injury from 2020 with medial sided swelling. Since the recent injury, she feels pain in the left knee with some catching or inability to completely flex. She was seen in the ED, xrays obtained and she was placed in a knee brace and referred to our office for ortho eval. COUNTS INCLUDE 234 BEDS AT THE [facility] Medical History Rheumatoid factor positive Post-COVID chronic cough Neuropathy Asthma Diverticulosis Kidney stone Celiac sprue Surgical History H/O cystoscopy S/P cardiac cath (~07/2020) Hx of excision of mass (~1999) Family History Mother Cervical cancer Uterine cancer History of thyroid disorder Maternal Grandmother Diabetes Stroke Maternal Grandfather Diabetes Coronary artery disease Paternal Grandmother Uterine cancer Diabetes Stroke Paternal Grandfather Stroke Father Bladder cancer Social History Household Members: Spouse Household Members Other:: Son Alcohol intake: current Alcohol intake frequency: holidays/special occasions only Patient Tobacco Use Status: Never used Tobacco Advance Directives Date on File: 04/27/22 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 Tenderness along the medial joint line. ROM full with crepitus. Positive steinmans. + Laxity with varus and valgus stress. NVI. Results Reviewed Results Reviewed: Xrays were obtained in the office today and personally reviewed by me of the left knee show lateralization of the patella. Assessment & Plan Assessment & Plan (1) Internal derangement of left knee: Code(s): M23.92 - Unspecified internal derangement of left knee Category: Medical Plan: Given the extent of her injury and difficulty with daily activities, an MRI of the left knee has been ordered to further evaluate the ligamentous structures. She was fit for a hinge knee brace today and will remain out of work until her MRI is done and seen back in our office. Orders: Orders XR knee RT 1V Today M25.561 - Pain in right knee MR knee LT wo con Today M17.12 - Unilateral primary osteoarthritis, left knee Coding Level of Care Code Est Pt Level 3 (34548) Diagnoses Internal derangement of left knee M23.92
== END 2024-01-24 13:19 | disposition home or self-care (01) ==
PROVIDERS: PCP Internal Medicine; Visit Provider Physician Assistant
DX: M23.92 Unspecified internal derangement of left knee (principal)
CPT/HCPCS: 99213

== ENCOUNTER 2024-01-26 20:54 | Outpatient (REF) | payer BC, SELFPAY ==
--- NOTE | ~2024-01-26 | MR_ITS ---
EXAMINATION: MR KNEE WITHOUT CONTRAST, LEFT CLINICAL INFORMATION: Left knee pain, swelling, numbness following a fall. Osteoarthritis. COMPARISON: Multiple priors, most recent left knee radiograph dated 05/10/2023 and MRI dated 04/25/2022. TECHNIQUE: MRI of the knee without contrast was performed using routine sequences on a high-field scanner. FINDINGS: MENISCI: Medial Meniscus: Intact Lateral Meniscus: Inner margin intra-articular surface fraying/tearing of the meniscal body posteriorly, new when compared to the prior examination. LIGAMENTS: Cruciate: Intact Collateral: Intact EXTENSOR MECHANISM: Intact ARTICULAR CARTILAGE/BONE: Patellofemoral Compartment: Medial patellar facet articular cartilage signal heterogeneity. Marrow edema within the medial pole of the patella, consistent with an acute osseous contusion. No fracture line. Medial Compartment: Intact articular cartilage. Oblique, nondisplaced fracture extending through the articular aspect of the medial tibial spine and into the lateral tibial plateau. Lateral Compartment: Linear low T1/high T2 signal within the lateral tibial plateau contacting the periphery of the lateral articular surface with cortical step-off measuring up to 0.2 cm. The fracture extends centrally to the medial tibial spine. Prominent associated marrow edema. Overall this area measures approximately 2.7 x 2.8 cm. Otherwise intact articular cartilage. JOINT FLUID AND BURSAE: Small joint effusion and small Lyons's cyst. MR/MR knee LT wo con IMPRESSION: 1. Minimally depressed fracture of the lateral tibial plateau contacting the periphery of the articular surface and extending through the medial tibial spine. Prominent associated marrow edema. 2. Inner margin fraying/tearing of the lateral meniscal body posteriorly, new when compared to the prior examination. 3. Mild osseous contusion within the medial pole of the patella. 4. Small joint effusion and small Lyons's cyst. Electronically signed by: Francis Morgan MD 01/27/2024 07:37 AM EDT
== END 2024-01-26 20:55 | disposition home or self-care (01) ==
LOC: HO.MRI 20:54
PROVIDERS: PCP Internal Medicine; Visit Provider Physician Assistant
DX: M23.92 Unspecified internal derangement of left knee (principal); M17.12 Unilateral primary osteoarthritis, left knee
CPT/HCPCS: 73721

== ENCOUNTER 2024-01-28 18:13 | Observation (INO) | payer BC, SELFPAY ==
--- NOTE | ~2024-01-28 | CT_ITS ---
EXAMINATION: CT KNEE WITHOUT CONTRAST, RIGHT CLINICAL INFORMATION: Pain, evaluate for fracture COMPARISON: Radiographs 01/24/2024 TECHNIQUE: A noncontrast CT of the right knee is performed with sagittal and coronal reformats This CT examination was performed using dose optimization techniques as appropriate, variously including the following: *Automated exposure control *Adjustment of mA and/or kV according to patient size (this includes techniques or standardized protocols for targeted exams where dose is matched to indication/reason for exam; i.e. extremities or head) *Use of iterative reconstruction technique DLP: 203 mGy-cm FINDINGS: No fracture or malalignment. Mild medial compartment narrowing. No joint effusion. CT/CT knee RT wo IV con IMPRESSION: No fracture or malalignment. Mild medial compartment osteoarthritis. Electronically signed by: Gino Stoll MD 02/01/2024 08:30 AM EDT
--- NOTE | ~2024-01-28 | US_ITS ---
EXAMINATION: US TRIPLEX LOWER EXTREMITY, LEFT CLINICAL INFORMATION: Left lower extremity pain and edema. COMPARISON: Venous ultrasound examinations dated 02/22/2023 and 02/06/2023. TECHNIQUE: Color-flow triplex imaging with spectral analysis and compression Doppler were performed on the left lower extremity. FINDINGS: Respiratory variation, normal compression and augmented flow are noted throughout the left lower extremity. The visualized common femoral vein, superficial femoral vein, profunda femoral vein, popliteal vein and midcalf peroneal and posterior tibial venous segments show no evidence of deep venous thrombosis. There is no Lyons's cyst. US/US venous duplex LE LT IMPRESSION: No evidence of deep venous thrombosis involving the left lower extremity. Electronically signed by: German Patel MD 01/28/2024 10:14 PM EDT
--- NOTE | ~2024-01-28 | XR_ITS ---
EXAMINATION: XR KNEE, LEFT CLINICAL INFORMATION: Pain COMPARISON: None available. TECHNIQUE: Two views of the left knee. FINDINGS: Redemonstration of the mildly depressed lateral plateau fracture. There is osteopenia. There is mild medial compartment joint space narrowing. No joint effusion. Soft tissues are unremarkable. XR/XR knee LT 2V IMPRESSION: Redemonstration of the mildly depressed lateral plateau fracture. Electronically signed by: Briseida Youngblood MD 01/30/2024 08:39 PM EDT
--- NOTE | ~2024-01-28 | CT_ITS ---
EXAMINATION: CT KNEE WITHOUT CONTRAST, LEFT CLINICAL INFORMATION: Evaluate tibial plateau fracture COMPARISON: MR Knee January 26, 2024. Plain film study left knee January 24, 2024. TECHNIQUE: Axial images obtained through the knee. Coronal and sagittal reformatted images are performed with CT scan This CT examination was performed using dose optimization techniques as appropriate, variously including the following: *Automated exposure control *Adjustment of mA and/or kV according to patient size (this includes techniques or standardized protocols for targeted exams where dose is matched to indication/reason for exam; i.e. extremities or head) *Use of iterative reconstruction technique DLP: 135 mGy-cm FINDINGS: There is osteopenia. The fracture line through the subchondral bone of the lateral tibial plateau is faintly osteosclerotic .There is no change in position of the fracture fragments since prior MR study. The fracture fragment is minimally depressed. Small intra-articular joint effusion. CT/CT knee LT wo IV con IMPRESSION: Fracture of the lateral tibial plateau. No change in position of the fracture fragments since prior MR study. Electronically signed by: Ketan Brown MD 01/28/2024 10:42 PM EDT
[2024-01-28 18:19] VITALS: BP 119/67; PULSE 91; RESP 20; TEMP 36.8; O2SAT 97
[2024-01-28 18:26] VITALS: BP 121/73; PULSE 86; O2SAT 99; BMI 20.6
[2024-01-28 18:56] LABS: MANUAL DIFF FLAG NO
[2024-01-28] MEDS: Morphine Sulfate 4 MG/ML CARTRIDGE IVPUSH ×2 (18:57→20:19)
[2024-01-28] MEDS: ondansetron HCL 4 MG/2 ML VIAL IVPUSH (18:57)
[2024-01-28 19:00] LABS: Basophils Absolute Auto 0.1 X10*3/uL (0.0-0.2); Basophils Percent Auto 1.1 % (0-2); Eosinophils Absolute Auto 0.1 X10*3/uL (0.0-0.4); Hematocrit 36.5 % (37.0-47.0); Imm Gran Abs Auto 0.02 X10*3/uL (0.00-0.03); Imm Gran Pct Auto 0.4 % (0.0-0.4); Lymphocytes Absolute Auto 1.2 X10*3/uL (1.2-4.9); Lymphocytes Percent Auto 25.4 % (20-40); Mean Corpuscular HGB Conc 32.9 g/dl (31.0-35.0); Mean Corpuscular Hemoglobin 29.6 pg (27.0-33.0); Mean Corpuscular Volume 90.1 fL (80.0-98.0); Mean Platelet Volume 9.7 fL (9.4-12.3); Monocytes Absolute Auto 0.3 X10*3/uL (0.1-1.2); Monocytes Percent Auto 6.9 % (2-11); Neutrophils Absolute Auto 2.9 x10*3/uL (2.0-8.3); Neutrophils Percent Auto 63.2 % (45-73); Platelet Count 252 X10*3/uL (160-400); Red Blood Count 4.05 X10*6/uL (4.20-5.50); Red Cell Distribution Width 12.4 % (11.0-16.0); White Blood Count 4.7 X10*3/uL (4.8-10.8)
--- NOTE | 2024-01-28 19:05 | ED_ITS ---
HPI - General Adult General Chief complaint: General Medical Stated complaint: Tibial plateau fracture, L calf pain x4 days Time Seen by Provider: 01/28/24 18:14 Source: patient and EMS (Patient's , Dr. Franks who is a auricular detoxification specialist here at [facility] [place]) Mode of arrival: ambulatory Limitations: no limitations History of Present Illness ED Provider: Dr. Nilesh Rivera HPI narrative: 62-year-old female with a history of neuropathy, rheumatoid factor positive asthma, diverticulosis, kidney stones, celiac sprue, chronic knee pain, recent fall with left nondisplaced tibial plateau fracture diagnosed by MRI on 01/26/2024 who presents emergency department for evaluation bilateral knee pain left greater than right and left calf swelling. Patient states that there has been construction at her house and on 01/18/2024 (10 days prior) she tripped over a tarp that was on the floor landing on both knees and striking the right side of her head. She had no loss of consciousness. She was seen at [facility] and had x-rays of her left knee which revealed no acute fracture. She was also seen here in the emergency department on 01/19/2024 for increased left knee pain and was felt that she had a possible internal ligament/meniscal injury of her knee and was placed in a knee immobilizer and given crutches. She followed up with Orthopedics, had the MRI in 01/26/2024 with following impression below: IMPRESSION: 1. Minimally depressed fracture of the lateral tibial plateau contacting the periphery of the articular surface and extending through the medial tibial spine. Prominent associated marrow edema. 2. Inner margin fraying/tearing of the lateral meniscal body posteriorly, new when compared to the prior examination. 3. Mild osseous contusion within the medial pole of the patella. 4. Small joint effusion and small Lyons's cyst. 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 She states she has also had some dyspnea and chest pain which she attributes to taking ibuprofen. Patient was having difficulty walking and came to the emergency department by ambulance for evaluation. Related Data Home Medications ?Medication ?Instructions ?Recorded ?Confirmed albuterol sulfate 90 mcg/actuation 2 puff inhalation Q4-6H PRN 04/07/22 06/08/22 aerosol inhaler Previous Rx's ?Medication ?Instructions ?Recorded lorazepam 0.5 mg tablet (Ativan) 0.5 mg PO TID PRN anxiety #7 tabs 04/23/22 pregabalin 25 mg capsule (Lyrica) 25 mg PO DAILY #14 caps 04/23/22 ondansetron 4 mg disintegrating 4 mg PO Q8H PRN nausea and 04/25/22 tablet vomiting #7 tabs methylprednisolone 4 mg tablets in 4 mg PO DAILY #21 ea 02/06/23 a dose pack (Medrol (Addison)) diclofenac epolamine 1.3 % 1 patch topical BID #30 ea 05/10/23 transdermal 12 hour patch prednisone 10 mg tablet 10 mg PO DIRECTED #32 tabs 07/30/23 celecoxib 200 mg capsule (Celebrex) 200 mg PO BID 30 days #60 caps 01/27/24 hydromorphone 2 mg tablet 2 mg PO Q8H pain #20 tabs 01/28/24 (Dilaudid) Allergies Allergy/AdvReac Type Severity Reaction Status Date / Time gluten [Gluten] Allergy Severe PT HAS Verified 01/28/24 18:29 CELIAC DISEASE Sulfa (Sulfonamide Allergy Severe LUPUS-LIKE Verified 01/28/24 18:29 Antibiotics) benztropine [Cogentin] Allergy Intermediate Rash Verified 01/28/24 18:29 ciprofloxacin [From Cipro] Allergy Intermediate TENDONOPATH Verified 01/28/24 18:29 Y/NEUROPATH Y shellfish derived Allergy Intermediate Hives Verified 01/28/24 18:29 promethazine Allergy Unknown Unknown Verified 01/28/24 18:29 nitrofurantoin AdvReac Severe Drug Verified 01/28/24 18:29 [From Macrodantin] induced Hep Mandelamine Allergy Intermediate Drug Uncoded 01/28/24 18:29 induced Hep QUINOLONES Allergy Intermediate Unknown Uncoded 01/28/24 18:29 [facility] Past Medical History Medical History Rheumatoid factor positive Post-COVID chronic cough Neuropathy Asthma Diverticulosis Kidney stone Celiac sprue Surgical History H/O cystoscopy S/P cardiac cath (~07/2020) Hx of excision of mass (~1999) Family History Family History Mother Cervical cancer Uterine cancer History of thyroid disorder Maternal Grandmother Diabetes Stroke Maternal Grandfather Diabetes Coronary artery disease Paternal Grandmother Uterine cancer Diabetes Stroke Paternal Grandfather Stroke Father Bladder cancer Social History Social History Household Members: Spouse Household Members Other:: Son Alcohol intake: current Alcohol intake frequency: holidays/special occasions only Patient Tobacco Use Status: Never used Tobacco Advance Directives: Yes Advance Directives on File: Yes Advance Directives Date on File: 04/27/22 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[employer] Physical Exam ED Vital Signs: Vital Signs - 24 hr 01/28/24 18:19 01/28/24 20:59 Temperature 98.3 F 97.8 F Pulse Rate 91 72 Respiratory Rate 20 20 Blood Pressure 119/67 117/62 Pulse Oximetry 97 96 Oxygen Delivery Method Room Air Room Air BMI result Body Mass Index 20.6 Medications Administered Discontinued Medications Generic Name Dose Route Start Last Admin Trade Name Freq PRN Reason Stop Dose Admin Morphine Sulfate 4 mg 01/28/24 18:54 01/28/24 18:57 Morphine Sulfate 4 Mg/Ml Cartridge IVPUSH 01/28/24 18:55 4 mg ONCE ONE Administration Protocol Morphine Sulfate 4 mg 01/28/24 20:16 01/28/24 20:19 Morphine Sulfate 4 Mg/Ml Cartridge IVPUSH 01/28/24 20:17 4 mg ONCE STA Administration Protocol Ondansetron HCl 4 mg 01/28/24 18:39 01/28/24 18:57 Ondansetron Hcl 4 Mg/2 Ml Vial IVPUSH 01/28/24 18:40 4 mg ONCE ONE Administration Medical Decision Making Medical Decision Making MDM Narrative: 62-year-old female with a history of neuropathy, rheumatoid factor positive, asthma, diverticulosis, kidney stones, celiac sprue, chronic knee pain, recent fall 01/18/2024 seen at [facility] with negative plain films, also seen here in the ED 01/19/2020 4 left knee pain who presents now with severe pain to her left knee, unable to use crutches, swelling from the knee down to the ankle. Vital signs were unremarkable. Patient does have tenderness palpation of her left knee and asymmetric swelling of the left lower extremity from the knee to the ankle compared to the right. Differential diagnosis: ?Includes but is not limited to displaced tibial plateau fracture, DVT, cellulitis, pulmonary embolus Following evaluation was ordered: CBC, CMP, PT/INR, PTT, D-dimer, CT left knee rule out displaced to live plateau fracture, left lower extremity duplex ultrasound Patient was initially treated with the following: Morphine 4 mg IV x2 doses, Zofran 4 mg IV Course: 21:13 Patient's laboratory evaluation was unremarkable with a low D-dimer suggesting that she was not have a pulmonary embolism. Duplex ultrasound revealed no DVT of the left lower extremity. The patient has had severe pain secondary to her tibial plateau fracture. I did discuss home care and group home care with our case monitor, given the severity of the patient's pain, as felt that the patient should be admitted for IV pain medications to get her pain under control and then she can be switched to oral medications. After she has pain control on oral medications she can start rehab and strength training to help her ambulate with crutches or possibly with a walker and still be nonweightbearing. I did discuss the patient's presentation over tiger text with the orthopedic physician speech language pathology assistant, Gilbert Caro who felt that there was not an orthopedic intervention at this time. I did discuss the patient with the covering hospitalist, Dr. Huff and the patient will be admitted for further management. Admission/Observation Consideration of admission/observation: Escalation of care including admission/observation considered Lab Data MDM Lab Attestation statement: I reviewed the patient's lab results. My interpretation patient's laboratory evaluation is as follows: Low WBC 4700, elevated BUN 22, D-dimer was 176 which is below the 230 cut off which is reassuring. 01/28/24 18:52 01/28/24 18:52 Labs: Lab Results 01/28/24 Range/Units 18:52 WBC 4.7 L (4.8-10.8) X10*3/uL RBC 4.05 L (4.20-5.50) X10*6/uL Hgb 12.0 (12.0-16.0) g/dl Hct 36.5 L (37.0-47.0) % MCV 90.1 (80.0-98.0) fL MCH 29.6 (27.0-33.0) pg MCHC 32.9 (31.0-35.0) g/dl RDW 12.4 (11.0-16.0) % Plt Count 252 (160-400) X10*3/uL MPV 9.7 (9.4-12.3) fL Immature Gran % (Auto) 0.4 (0.0-0.4) % Neut % (Auto) 63.2 (45-73) % Lymph % (Auto) 25.4 (20-40) % Hitchcock % (Auto) 6.9 (2-11) % Eos % (Auto) 3.0 (0-4) % Baso % (Auto) 1.1 (0-2) % Lymph # (Auto) 1.2 (1.2-4.9) X10*3/uL Hitchcock # (Auto) 0.3 (0.1-1.2) X10*3/uL Eos # (Auto) 0.1 (0.0-0.4) X10*3/uL Baso # (Auto) 0.1 (0.0-0.2) X10*3/uL Abs Immat Gran (auto) 0.02 (0.00-0.03) X10*3/uL Absolute Neuts (auto) 2.9 (2.0-8.3) x10*3/uL Absolute Nucleated RBC 0.000 (0.0-0.012) X10*3/uL Nucleated RBC % (auto) 0.0 (0.0-0.2) /100WBC PT 10.8 L (11.1-13.3) SEC INR 0.9 (0.9-1.1) APTT 31.2 (26.0-36.8) SEC D-Dimer High Sensitivty 176 NG/ML Sodium 142 (135-145) mmol/L Potassium 3.6 (3.3-5.1) mmol/L Chloride 107 (96-108) mmol/L Carbon Dioxide 29 (22-29) mmol/L Anion Gap 10 L (12-20) BUN 22 H (9-16) mg/dL Creatinine 0.61 (0.5-1.4) mg/dL Estim Creat Clear Calc 70.3 Estimated GFR > 60 Random Glucose 97 (60-115) mg/dL Calcium 9.2 D (8.4-10.2) mg/dL Total Bilirubin 0.3 (0.0-1.0) mg/dL AST 17 (5-31) U/L ALT 12 (0-31) U/L Alkaline Phosphatase 49 (39-117) U/L Total Protein 6.6 (6.5-8.0) g/dL Albumin 4.1 (3.5-5.0) g/dL Independent Historian Clinical information obtained from an independent historian. History obtained from or confirmed by: Spouse Discharge Plan Discharge Clinical Impression: Fracture of left tibial plateau, Acute pain of left lower extremity Prescriptions: No Action celecoxib [Celebrex] 200 mg capsule 200 mg PO BID 30 Days Qty: 60 3RF hydromorphone [Dilaudid] 2 mg tablet 2 mg PO Q8H Qty: 20 0RF Rx Instructions: Partial Fill upon patient request. pregabalin [Lyrica] 25 mg capsule 25 mg PO DAILY Qty: 14 0RF lorazepam [Ativan] 0.5 mg tablet 0.5 mg PO TID PRN (Reason: anxiety) Qty: 7 0RF ondansetron 4 mg tablet,disintegrating 4 mg PO Q8H PRN (Reason: nausea and vomiting) Qty: 7 0RF methylprednisolone [Medrol (Addison)] 4 mg tablets,dose pack 4 mg PO DAILY Qty: 21 0RF prednisone 10 mg tablet 10 mg PO DIRECTED Qty: 32 0RF Rx Instructions: Day 1 through 5 take 4 pills then decrease by 1 pill every 2 days until you complete prescription diclofenac epolamine 1.3 % patch 12 hour 1 patch topical BID Qty: 30 1RF albuterol sulfate 90 mcg/actuation HFA aerosol inhaler 2 puff inhalation Q4-6H PRN Print Language: Cook Islander
[2024-01-28 19:10] LABS: INTERNATIONAL NORM RATIO 0.9 (0.9-1.1); Prothrombin Time 10.8 SEC (11.1-13.3)
[2024-01-28 19:13] LABS: Partial Thromboplastin Time 31.2 SEC (26.0-36.8)
[2024-01-28 19:14] LABS: Alanine Aminotransferase 12 U/L (0-31); Albumin Level 4.1 g/dL (3.5-5.0); Alkaline Phosphatase 49 U/L (39-117); Anion Gap 10 (12-20); Aspartate Amino Transferase 17 U/L (5-31); Bilirubin Total 0.3 mg/dL (0.0-1.0); Blood Urea Nitrogen 22 mg/dL (9-16); Calcium 9.2 mg/dL (8.4-10.2); Carbon Dioxide 29 mmol/L (22-29); Chloride 107 mmol/L (96-108); Creatinine Clr Calc Pharmacy 70.3; Estimated Glomerular Filt Rate > 60; Glucose Random 97 mg/dL (60-115); Potassium 3.6 mmol/L (3.3-5.1); Sodium 142 mmol/L (135-145); Total Protein 6.6 g/dL (6.5-8.0)
[2024-01-28 19:29] LABS: D Dimer High Sensitivity 176 NG/ML
[2024-01-28 20:59] VITALS: BP 117/62; PULSE 72; RESP 20; TEMP 36.6; O2SAT 96
--- NOTE | 2024-01-28 21:08 | PM.EVENT ---
Event Note Date of Service: 01/28/24 Event Note: [facility]B LLE-knee brace prn -CT scan non displaced impaction fracture of the tibial plateau Time Spent With Patient Time: Total time managing care of this patient today ____ minutes.
--- NOTE | 2024-01-28 21:16 | PM.IMHP ---
History of Present Illness Date of Service: 01/28/24 Chief Complaint: Knee pain This is a 63-year-old female with pertinent history of peripheral neuropathy, rheumatoid factor positive, Raynaud's disease, mood disorder who presents to the emergency department for evaluation of left knee pain after a fall. Patient tripped and fell about 10 days ago at her house due to ongoing reconstruction. She landed on her knees and has been having left knee pain since. Patient went to [facility] and had x-rays of the left knee which was without fracture. She was also seen in the ER at [facility] on 01/18 and was placed in a knee immobilizer and given crutches. Patient was asked to follow-up with orthopedic surgery. She underwent an MRI outpatient on 01/25 which revealed left nondisplaced tibial plateau fracture. Patient states her pain has worsened over the last 2-3 days and she is unable to ambulate. Pain not controlled with p.o. analgesics. She also has been having calf pain. No fever, chills, chest discomfort, palpitations, shortness of breath, abdominal pain, changes in urinary or bowel habits. In the emergency department, patient requiring multiple IV opioids pushes for analgesia. Review of Systems Constitutional: Constitutional: Reports no additional constitutional complaints Cardiovascular: Cardiovascular: Reports no additional cardiovascular complaints Respiratory: Respiratory: Reports no additional respiratory complaints Gastrointestinal: Gastrointestinal: Reports no additional gastrointestinal complaints Genitourinary: Genitourinary: Reports no additional female genitourinary complaints Musculoskeletal: Musculoskeletal: Reports arthralgias and Reports joint swelling [facility] Medical History Rheumatoid factor positive Post-COVID chronic cough Neuropathy Asthma Diverticulosis Kidney stone Celiac sprue Family History Mother Cervical cancer Uterine cancer History of thyroid disorder Maternal Grandmother Diabetes Stroke Maternal Grandfather Diabetes Coronary artery disease Paternal Grandmother Uterine cancer Diabetes Stroke Paternal Grandfather Stroke Father Bladder cancer Surgical History H/O cystoscopy S/P cardiac cath (~07/2020) Hx of excision of mass (~1999) Social History Household Members: Spouse Household Members Other:: Son Alcohol intake: current Alcohol intake frequency: holidays/special occasions only Patient Tobacco Use Status: Never used Tobacco Advance Directives: Yes Advance Directives on File: Yes Advance Directives Date on File: 04/27/22 Nutrition Risks: No Nutritional Risk 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[place] Meds Allergies Allergy/AdvReac Type Severity Reaction Status Date / Time gluten [Gluten] Allergy Severe PT HAS Verified 01/28/24 18:29 CELIAC DISEASE Sulfa (Sulfonamide Allergy Severe LUPUS-LIKE Verified 01/28/24 18:29 Antibiotics) benztropine [Cogentin] Allergy Intermediate Rash Verified 01/28/24 18:29 ciprofloxacin [From Cipro] Allergy Intermediate TENDONOPATH Verified 01/28/24 18:29 Y/NEUROPATH Y shellfish derived Allergy Intermediate Hives Verified 01/28/24 18:29 promethazine Allergy Unknown Unknown Verified 01/28/24 18:29 nitrofurantoin AdvReac Severe Drug Verified 01/28/24 18:29 [From Macrodantin] induced Hep Mandelamine Allergy Intermediate Drug Uncoded 01/28/24 18:29 induced Hep QUINOLONES Allergy Intermediate Unknown Uncoded 01/28/24 18:29 Home Medications ?Medication ?Instructions ?Recorded ?Confirmed ?Last Taken ?Type albuterol sulfate 90 mcg/actuation 2 puff inhalation Q4-6H PRN 04/07/22 06/08/22 Unknown History aerosol inhaler Physical Exam Vital Signs and Narrative: Vital Signs: Last Vital Signs Temp 97.8 F 01/28/24 20:59 Pulse 72 01/28/24 20:59 Resp 20 01/28/24 20:59 BP 117/62 01/28/24 20:59 Pulse Ox 96 01/28/24 20:59 O2 Del Method Room Air 01/28/24 20:59 BMI result Body Mass Index 20.6 Middle-aged female lying in bed in no distress Neck supple, no JVD Regular rate and rhythm, S1-S2 heard Regular breath sounds bilaterally, no wheezing or crackles appreciated Abdomen soft nontender, no guarding, no rigidity Patient is awake, alert and oriented to self, place, time and person ; no focal motor deficit Psych: Normal mood Left knee swelling with limited range of motion due to pain Results Labs 01/28/24 18:52 01/28/24 18:52 Labs: Laboratory Results - last 24 hr 01/28/24 18:52 MCV 90.1 MCH 29.6 MCHC 32.9 RDW 12.4 Plt Count 252 MPV 9.7 Immature Gran % (Auto) 0.4 Neut % (Auto) 63.2 Lymph % (Auto) 25.4 Harris % (Auto) 6.9 Eos % (Auto) 3.0 Baso % (Auto) 1.1 Lymph # (Auto) 1.2 Harris # (Auto) 0.3 Eos # (Auto) 0.1 Baso # (Auto) 0.1 Abs Immat Gran (auto) 0.02 Absolute Neuts (auto) 2.9 Absolute Nucleated RBC 0.000 Nucleated RBC % (auto) 0.0 PT 10.8 L INR 0.9 APTT 31.2 D-Dimer High Sensitivty 176 Anion Gap 10 L Estim Creat Clear Calc 70.3 Estimated GFR > 60 Random Glucose 97 Calcium 9.2 D Total Bilirubin 0.3 AST 17 ALT 12 Alkaline Phosphatase 49 Total Protein 6.6 Albumin 4.1 Assessment and Plan (1) Acute pain of left lower extremity: Status: Acute (2) Fracture of left tibial plateau: Status: Acute Plan This is a 63-year-old female with pertinent history of peripheral neuropathy, rheumatoid factor positive, Raynaud's disease, mood disorder who presents to the emergency department for evaluation of left knee pain after a fall. #. Intractable left knee pain due to tibial plateau fracture: Will admit patient with IV opioids p.r.n. for intractable pain. Orthopedic surgery consulted>>non surgical. Venous duplex pending. Transition to p.o. opioids after appropriate pain control. COnsulted Physical therapy to evaluate and treat. #. Peripheral neuropathy: On Lyrica #. Mood disorder: On Ativan p.r.n. Med rec pending DVT prophylaxis: Lovenox Full code Quality Stroke Does the patient have a stroke diagnosis?: No VTE Prior VTE?: No VTE Risk Level:: Medical - moderate - high VTE Device Contraindication: Treatment Not Indicated VTE Drug Contraindication: N/A - Med Ordered
[2024-01-28] MEDS: Enoxaparin Sodium 40 MG/0.4 ML SYRINGE SUBCUT (21:24)
[2024-01-28] MEDS: diphenhydrAMINE HCL 50 MG/ML VIAL 25 MG IVPUSH (21:29)
--- NOTE | 2024-01-28 21:29 | MHC.CM.ED ---
Addendum entered by Shanti Bartlett 01/28/24 22:08: Acute referrals placed. [facility] is first choice. Addendum entered by Shanti Bartlett 01/28/24 21:46: Pt placed to observation. PT ordered. [facility] 01/27. Reviewed and signed. Copy to patient and medical records. Addendum entered by Shanti Bartlett 01/28/24 21:40: CM spoke with Dr. Huff. He will admit patient. Waiting for orders. Will place PT. Agreeable with plan for acute rehab referrals. Original Note: CM met with patient and her at the request of Dr. Rivera. 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 She lives with her , Jesus Alberto Franks ([phone]) and her adult son. She uses no DME prior to her fall and has no services. HCP is on file. Address and insurance are verified.Pt has a diagnosed tibial plateau fx on MRI 01/25. She sustained a fall on 01/17 and was seen at both [facility] [employer] [facility] and [facility]. Pt had been using crutches and trying to bear weight until yesterday on her L leg. Pt c/o increasing pain, with poor effects from pain meds given in the ED. Pt cannot bear weight and cannot use crutches effectively. She is unable to move around her home, use the bath or the shower. She is upset with her condition. Pt is agreeable to PT evaluation and possible acute rehab. Discussed with patient possibility of admission for intractable pain. CM spoke with Dr. Rivera regarding above. Will medicate and speak with hospitalist for admission. Ortho has been consulted. Pt is active with Dr. Montes De Oca. Pt will need to be non-weight bearing for 6 weeks. CM following for discharge planning.
--- NOTE | 2024-01-28 22:47 | PHA.MEDREC ---
Addendum entered by Natty Degroot RPh 01/28/24 22:55: Reviewed by [facility] Original Note: Pharmacy Consult ? Medication Reconciliation Pharmacy has completed the medication reconciliation. Confirmed medications with patient. Patient states They called Dr. Montes De Oca here at [facility] for something for the pain for the patient and he prescribed Hydromorphone 2mg tab, the patient states she has that at home but has not started due to coming here. She states she last took her medication this evening at 1645.
[2024-01-28 23:30] VITALS: BP 110/62; PULSE 73; RESP 18; TEMP 36.3; O2SAT 100
[2024-01-29] MEDS: ondansetron HCL 4 MG/2 ML VIAL IVPUSH ×2 (05:36→16:15)
[2024-01-29] MEDS: Morphine Sulfate 4 MG/ML CARTRIDGE IVPUSH ×2 (05:37→16:17)
[2024-01-29 06:30] LABS: MANUAL DIFF FLAG NO
[2024-01-29 06:39] LABS: Basophils Percent Auto 0.7 % (0-2); Eosinophils Absolute Auto 0.1 X10*3/uL (0.0-0.4); Eosinophils Percent Auto 2.5 % (0-4); Hematocrit 33.6 % (37.0-47.0); Hemoglobin 10.6 g/dl (12.0-16.0); Imm Gran Abs Auto 0.02 X10*3/uL (0.00-0.03); Imm Gran Pct Auto 0.4 % (0.0-0.4); Lymphocytes Absolute Auto 1.2 X10*3/uL (1.2-4.9); Lymphocytes Percent Auto 27.7 % (20-40); Mean Corpuscular HGB Conc 31.5 g/dl (31.0-35.0); Mean Corpuscular Hemoglobin 28.8 pg (27.0-33.0); Mean Corpuscular Volume 91.3 fL (80.0-98.0); Mean Platelet Volume 10.1 fL (9.4-12.3); Monocytes Absolute Auto 0.3 X10*3/uL (0.1-1.2); Monocytes Percent Auto 7.6 % (2-11); Neutrophils Absolute Auto 2.7 x10*3/uL (2.0-8.3); Neutrophils Percent Auto 61.1 % (45-73); Platelet Count 236 X10*3/uL (160-400); Red Blood Count 3.68 X10*6/uL (4.20-5.50); Red Cell Distribution Width 12.5 % (11.0-16.0); White Blood Count 4.5 X10*3/uL (4.8-10.8)
[2024-01-29 06:56] LABS: Anion Gap 11 (12-20); Blood Urea Nitrogen 20 mg/dL (9-16); Calcium 9.4 mg/dL (8.4-10.2); Carbon Dioxide 28 mmol/L (22-29); Chloride 110 mmol/L (96-108); Creatinine Clr Calc Pharmacy 70.3; Estimated Glomerular Filt Rate > 60; Glucose Random 88 mg/dL (60-115); Potassium 4.3 mmol/L (3.3-5.1); Sodium 145 mmol/L (135-145)
[2024-01-29] MEDS: LORazepam 0.5 MG TABLET PO ×2 (07:35→20:36)
[2024-01-29] MEDS: 0.9 % Sodium Chloride Flush 3 ML SYRINGE IVFLUSH ×2 (07:35→15:09)
[2024-01-29] MEDS: Acetaminophen Oral Liquid 650 MG/20.3 ML SOLUTION PO ×3 (07:40→22:01)
[2024-01-29 08:00] VITALS: BP 90/50; PULSE 61; RESP 12; TEMP 36.4; O2SAT 98
[2024-01-29] MEDS: polyethylene glycoL 3350 17 GM POWD.PACK PO (09:25)
[2024-01-29] MEDS: HYDROmorphone HCl 2 MG TABLET PO ×2 (09:28→20:39)
--- NOTE | 2024-01-29 09:29 | PM.CNOR ---
History of Present Illness HPI Consult date: 01/29/24 Chief complaint: Leg pain Narrative: 63 yo roseann admitted to the medical service for pain mgmnt and possible rehab placement s/p left tibial plateau fracture. She was seen by me in the office on 01/24/24. MRI / Ct scan confirmed fracture. She has been at home, NWB with crutches but her pain has been intolerable and she has been having difficulty with ADL's and ambulation due to pain and wb status. She lives at home with her spouse. 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 Review of Systems Review of Systems: Yes all other systems are reviewed and are negative [facility] Past Medical History Medical History Rheumatoid factor positive Post-COVID chronic cough Neuropathy Asthma Diverticulosis Kidney stone Celiac sprue Family History Family History Mother Cervical cancer Uterine cancer History of thyroid disorder Maternal Grandmother Diabetes Stroke Maternal Grandfather Diabetes Coronary artery disease Paternal Grandmother Uterine cancer Diabetes Stroke Paternal Grandfather Stroke Father Bladder cancer Surgical History Surgical History H/O cystoscopy S/P cardiac cath (~07/2020) Hx of excision of mass (~1999) Social History Social History Household Members: Spouse Household Members Other:: Son Alcohol intake: current Alcohol intake frequency: holidays/special occasions only Patient Tobacco Use Status: Never used Tobacco Advance Directives Date on File: 04/27/22 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[employer] Meds Allergies Allergy/AdvReac Type Severity Reaction Status Date / Time gluten [Gluten] Allergy Severe PT HAS Verified 01/28/24 18:29 CELIAC DISEASE Sulfa (Sulfonamide Allergy Severe LUPUS-LIKE Verified 01/28/24 18:29 Antibiotics) benztropine [Cogentin] Allergy Intermediate Rash Verified 01/28/24 18:29 ciprofloxacin [From Cipro] Allergy Intermediate TENDONOPATH Verified 01/28/24 18:29 Y/NEUROPATH Y shellfish derived Allergy Intermediate Hives Verified 01/28/24 18:29 promethazine Allergy Unknown Unknown Verified 01/28/24 18:29 nitrofurantoin AdvReac Severe Drug Verified 01/28/24 18:29 [From Macrodantin] induced Hep Mandelamine Allergy Intermediate Drug Uncoded 01/28/24 18:29 induced Hep QUINOLONES Allergy Intermediate Unknown Uncoded 01/28/24 18:29 Active Medications: Current Medications Acetaminophen (Acetaminophen Oral Liquid 650 Mg/20.3 Ml Solution) 650 mg PO Q4H PRN PRN Reason: moderate pain Last Admin: 01/29/24 07:40 Dose: 650 mg Calcium Carbonate (Calcium Carbonate 750 Mg Tab.Chew) 750 mg PO Q4H PRN PRN Reason: Heartburn Enoxaparin Sodium (Enoxaparin Sodium 40 Mg/0.4 Ml Syringe) 40 mg SUBCUT Q24H [facility] Last Admin: 01/28/24 21:24 Dose: 40 mg Hydromorphone HCl (Hydromorphone Hcl 2 Mg Tablet) 2 mg PO Q8H PRN PRN Reason: moderate to severe pain Last Admin: 01/29/24 09:28 Dose: 2 mg Lorazepam (Lorazepam 0.5 Mg Tablet) 0.5 mg PO Q12H [facility] Last Admin: 01/29/24 07:35 Dose: 0.5 mg Magnesium Hydroxide (Milk Of Magnesia 30 Ml Oral.Susp) 30 ml PO DAILY PRN PRN Reason: Constipation Melatonin (Melatonin 3 Mg Tablet) 6 mg PO BEDTIME PRN PRN Reason: Insomnia Morphine Sulfate (Morphine Sulfate 4 Mg/Ml Cartridge) 4 mg IVPUSH Q4H PRN; Protocol PRN Reason: Pain, Severe (Pain Scale 7-10) Last Admin: 01/29/24 05:37 Dose: 4 mg Ondansetron HCl (Ondansetron Hcl 4 Mg/2 Ml Vial) 4 mg IVPUSH Q8H PRN PRN Reason: Nausea and Vomiting Last Admin: 01/29/24 05:36 Dose: 4 mg Polyethylene Glycol (Polyethylene Glycol 3350 17 Gm Powd.Pack) 17 gm PO DAILY [facility] Last Admin: 01/29/24 09:25 Dose: 17 gm Sodium Chloride (0.9 % Sodium Chloride Flush 3 Ml Syringe) 3 ml IVFLUSH QSHIFT [facility] Last Admin: 01/29/24 07:35 Dose: 3 ml Home Medications ?Medication ?Instructions ?Recorded ?Confirmed ?Last Taken ?Type albuterol sulfate 90 mcg/actuation 2 puff inhalation Q4-6H PRN 04/07/22 01/28/24 01/28/24 16:45 History aerosol inhaler SOB/Wheezing Physical Exam Vital Signs: Vital Signs: Last Vital Signs Temp 97.6 F 01/29/24 08:00 Pulse 61 01/29/24 08:00 Resp 12 01/29/24 08:00 BP 90/50 L 01/29/24 08:00 Pulse Ox 98 01/29/24 08:00 O2 Del Method Room Air 01/29/24 08:00 BMI result Body Mass Index 20.6 Const: General: cooperative and no acute distress Orientation/consciousness: patient oriented x3 Resp: Effort & Inspection: normal respiratory effort and able to speak in complete sentences Cardio: Peripheral pulses: Peripheral pulses 2+ throughout Neuro: General: patient oriented x3 Extrem: Other: Left knee skin intact, no erythema or joint effusion. Tenderness along the medial joint line. ROM full with crepitus. Positive steinmans. + Laxity with varus and valgus stress. NVI. Results Labs 01/29/24 05:36 01/29/24 05:36 Labs: Abnormal lab results 01/28/24 01/29/24 Range/Units 18:52 05:36 WBC 4.7 L 4.5 L (4.8-10.8) X10*3/uL RBC 4.05 L 3.68 L (4.20-5.50) X10*6/uL Hgb 10.6 L (12.0-16.0) g/dl Hct 36.5 L 33.6 L (37.0-47.0) % PT 10.8 L (11.1-13.3) SEC Chloride 110 H (96-108) mmol/L Anion Gap 10 L 11 L (12-20) BUN 22 H 20 H (9-16) mg/dL H & H 01/28/24 01/29/24 Range/Units 18:52 05:36 Hgb 12.0 10.6 L (12.0-16.0) g/dl Hct 36.5 L 33.6 L (37.0-47.0) % Coagulation 01/28/24 Range/Units 18:52 INR 0.9 (0.9-1.1) All other labs normal. Assessment and Plan (1) Fracture of left tibial plateau: Status: Acute Plan Left knee tibial plateau fracture -NWB LLE with brace prn-with crutches or walker -NWB ROM ok -NWB Isometric quad exercises No surgical intervention warranted at this time as there is no displacement of the fracture Compression boots for dvt ppx f/u with Ortho pedics on 02/24/24 @ 10:45am CT knee LT wo IV con IMPRESSION: Fracture of the lateral tibial plateau. No change in position of the fracture fragments since prior MR study. Electronically signed by: Ketan Brown MD 01/28/2024 10:42 PM EDT RP Procedures Date of Service Date of Service: 01/29/24
[2024-01-29 09:58] LABS: Vitamin D 25-OH Total 39.2 ng/mL (>30)
--- NOTE | 2024-01-29 10:12 | HO.PM.IMPN ---
Subjective Subjective Date of Service: 01/29/24 Interval History: left leg pain Physical Exam Vital Signs: Vital Signs: Last Vital Signs Temp 97.6 F 01/29/24 08:00 Pulse 61 01/29/24 08:00 Resp 12 01/29/24 08:00 BP 90/50 L 01/29/24 08:00 Pulse Ox 98 01/29/24 08:00 O2 Del Method Room Air 01/29/24 08:00 BMI result Body Mass Index 20.6 General: AO X 3, no acute distress Resp: CTA bilateral, no accessory muscles used CVS: S1,S2,RRR GI: soft, non tender, non distended Neuro: motor grossly intact, alert Psych: appropriate affect, appropriate insight Objective Data Active Medications Acetaminophen (Acetaminophen Oral Liquid 650 Mg/20.3 Ml Solution) 650 mg PO Q4H PRN PRN Reason: moderate pain Last Admin: 01/29/24 07:40 Dose: 650 mg Documented By: KAROL Calcium Carbonate (Calcium Carbonate 750 Mg Tab.Chew) 750 mg PO Q4H PRN PRN Reason: Heartburn Enoxaparin Sodium (Enoxaparin Sodium 40 Mg/0.4 Ml Syringe) 40 mg SUBCUT Q24H [facility] Last Admin: 01/28/24 21:24 Dose: 40 mg Documented By: ADRIÁN-BROOKLYNN Hydromorphone HCl (Hydromorphone Hcl 2 Mg Tablet) 2 mg PO Q8H PRN PRN Reason: moderate to severe pain Last Admin: 01/29/24 09:28 Dose: 2 mg Documented By: KAROL Lorazepam (Lorazepam 0.5 Mg Tablet) 0.5 mg PO Q12H [facility] Last Admin: 01/29/24 07:35 Dose: 0.5 mg Documented By: KAROL Magnesium Hydroxide (Milk Of Magnesia 30 Ml Oral.Susp) 30 ml PO DAILY PRN PRN Reason: Constipation Melatonin (Melatonin 3 Mg Tablet) 6 mg PO BEDTIME PRN PRN Reason: Insomnia Morphine Sulfate (Morphine Sulfate 4 Mg/Ml Cartridge) 4 mg IVPUSH Q4H PRN; Protocol PRN Reason: Pain, Severe (Pain Scale 7-10) Last Admin: 01/29/24 05:37 Dose: 4 mg Documented By: HARDIK Ondansetron HCl (Ondansetron Hcl 4 Mg/2 Ml Vial) 4 mg IVPUSH Q8H PRN PRN Reason: Nausea and Vomiting Last Admin: 01/29/24 05:36 Dose: 4 mg Documented By: HARDIK Polyethylene Glycol (Polyethylene Glycol 3350 17 Gm Powd.Pack) 17 gm PO DAILY [facility] Last Admin: 01/29/24 09:25 Dose: 17 gm Documented By: KAROL Sodium Chloride (0.9 % Sodium Chloride Flush 3 Ml Syringe) 3 ml IVFLUSH QSHIFT [facility] Last Admin: 01/29/24 07:35 Dose: 3 ml Documented By: KAROL Labs 01/29/24 05:36 01/29/24 05:36 Labs: Laboratory Results - last 24 hr 01/28/24 01/29/24 18:52 05:36 MCV 90.1 91.3 MCH 29.6 28.8 MCHC 32.9 31.5 RDW 12.4 12.5 Plt Count 252 236 MPV 9.7 10.1 Immature Gran % (Auto) 0.4 0.4 Neut % (Auto) 63.2 61.1 Lymph % (Auto) 25.4 27.7 [place] % (Auto) 6.9 7.6 Eos % (Auto) 3.0 2.5 Baso % (Auto) 1.1 0.7 Lymph # (Auto) 1.2 1.2 [place] # (Auto) 0.3 0.3 Eos # (Auto) 0.1 0.1 Baso # (Auto) 0.1 0.0 Abs Immat Gran (auto) 0.02 0.02 Absolute Neuts (auto) 2.9 2.7 Absolute Nucleated RBC 0.000 0.000 Nucleated RBC % (auto) 0.0 0.0 PT 10.8 L INR 0.9 APTT 31.2 D-Dimer High Sensitivty 176 Anion Gap 10 L 11 L Estim Creat Clear Calc 70.3 70.3 Estimated GFR > 60 > 60 Random Glucose 97 88 Calcium 9.2 D 9.4 Total Bilirubin 0.3 AST 17 ALT 12 Alkaline Phosphatase 49 Total Protein 6.6 Albumin 4.1 25-OH Vitamin D Total 39.2 Assessment and Plan (1) Acute pain of left lower extremity: Status: Acute Plan 63F PMH peripheral neuropathy, raynauds, mood disorder presented with intractable left leg pain due to fall 10 days ptp, found to have tibila plateau fracture intractable pain from left tibial plateau fracture will transition to oral pain regimen, dilaudid 2mg tid prn miralax daily vit d wnl nwb, outpatient ortho follow up plan for acute rehab peripheral neuropathy lyrica mood disorder ativan prn dvt prophylaxis - lovenox full code reason for continued hospitalization:pain control Quality Stroke Does the patient have a stroke diagnosis?: No VTE Prior VTE?: No VTE Risk Level:: Medical - moderate - high VTE Device Contraindication: Treatment Not Indicated VTE Drug Contraindication: N/A - Med Ordered
[2024-01-29 15:51] VITALS: BP 101/60; PULSE 64; RESP 14; TEMP 36.4; O2SAT 98
[2024-01-29] MEDS: Enoxaparin Sodium 40 MG/0.4 ML SYRINGE SUBCUT (20:36)
[2024-01-29 23:40] VITALS: BP 95/51; PULSE 66; RESP 16; TEMP 36.8; O2SAT 98
[2024-01-30] MEDS: HYDROmorphone HCl 2 MG TABLET PO ×4 (05:00→23:21)
[2024-01-30] MEDS: 0.9 % Sodium Chloride Flush 3 ML SYRINGE IVFLUSH ×3 (06:58→22:03)
[2024-01-30] MEDS: Acetaminophen Oral Liquid 650 MG/20.3 ML SOLUTION PO (06:58)
[2024-01-30] MEDS: polyethylene glycoL 3350 17 GM POWD.PACK PO (07:03)
[2024-01-30] MEDS: LORazepam 0.5 MG TABLET PO ×2 (07:03→19:15)
[2024-01-30 07:40] VITALS: BP 103/60; PULSE 77; RESP 16; TEMP 37; O2SAT 98
[2024-01-30] MEDS: Docusate Sodium 100 MG CAPSULE PO ×2 (08:34→22:02)
[2024-01-30 08:48] LABS: Bacterial Vaginosis PCR NEGATIVE (Negative); Candida Group PCR NOT DETECTED (Not Detect); Candida glab krusei PCR NOT DETECTED (Not Detect); Trichomonas vaginalis PCR NOT DETECTED (Not Detect)
--- NOTE | 2024-01-30 08:53 | HO.PM.IMPN ---
Subjective Subjective Date of Service: 01/30/24 Interval History: pain meds wearing off around 6 hours yamil, calf muscle pain, difficulty sleeping Physical Exam Vital Signs: Vital Signs: Last Vital Signs Temp 98.6 F 01/30/24 07:40 Pulse 77 01/30/24 07:40 Resp 16 01/30/24 07:40 BP 103/60 01/30/24 07:40 Pulse Ox 98 01/30/24 07:40 O2 Del Method Room Air 01/30/24 07:40 BMI result Body Mass Index 20.6 General: AO X 3, no acute distress Resp: CTA bilateral, no accessory muscles used CVS: S1,S2,RRR GI: soft, non tender, non distended Neuro: motor grossly intact, alert Psych: appropriate affect, appropriate insight Objective Data Active Medications Acetaminophen (Acetaminophen Oral Liquid 650 Mg/20.3 Ml Solution) 650 mg PO Q4H PRN PRN Reason: moderate pain Last Admin: 01/30/24 06:58 Dose: 650 mg Documented By: KAROL Calcium Carbonate (Calcium Carbonate 750 Mg Tab.Chew) 750 mg PO Q4H PRN PRN Reason: Heartburn Docusate Sodium (Docusate Sodium 100 Mg Capsule) 100 mg PO BID [facility] Last Admin: 01/30/24 08:34 Dose: 100 mg Documented By: KAROL Enoxaparin Sodium (Enoxaparin Sodium 40 Mg/0.4 Ml Syringe) 40 mg SUBCUT Q24H [facility] Last Admin: 01/29/24 20:36 Dose: 40 mg Documented By: DOBROB Hydromorphone HCl (Hydromorphone Hcl 2 Mg Tablet) 2 mg PO Q6H PRN PRN Reason: moderate to severe pain Lorazepam (Lorazepam 0.5 Mg Tablet) 0.5 mg PO Q12H [facility] Last Admin: 01/30/24 07:03 Dose: 0.5 mg Documented By: KAROL Magnesium Hydroxide (Milk Of Magnesia 30 Ml Oral.Susp) 30 ml PO DAILY PRN PRN Reason: Constipation Melatonin (Melatonin 3 Mg Tablet) 6 mg PO BEDTIME PRN PRN Reason: Insomnia Morphine Sulfate (Morphine Sulfate 4 Mg/Ml Cartridge) 4 mg IVPUSH Q4H PRN; Protocol PRN Reason: Pain, Severe (Pain Scale 7-10) Last Admin: 01/29/24 16:17 Dose: 4 mg Documented By: KAROL Ondansetron HCl (Ondansetron Hcl 4 Mg/2 Ml Vial) 4 mg IVPUSH Q8H PRN PRN Reason: Nausea and Vomiting Last Admin: 01/29/24 16:15 Dose: 4 mg Documented By: KAROL Polyethylene Glycol (Polyethylene Glycol 3350 17 Gm Powd.Pack) 17 gm PO DAILY [facility] Last Admin: 01/30/24 07:03 Dose: 17 gm Documented By: KAROL Pregabalin (Pregabalin 25 Mg Capsule) 25 mg PO BEDTIME [facility] Sodium Chloride (0.9 % Sodium Chloride Flush 3 Ml Syringe) 3 ml IVFLUSH QSHIFT [facility] Last Admin: 01/30/24 06:58 Dose: 3 ml Documented By: KAROL Labs 01/29/24 05:36 01/29/24 05:36 Labs: Laboratory Results - last 24 hr 01/29/24 01/30/24 05:36 05:54 25-OH Vitamin D Total 39.2 T. vaginalis (PCR) NOT DETECTED Bact Vaginosis (PCR) NEGATIVE C. krusei/glabrata (PCR) NOT DETECTED Sruthi group (PCR) NOT DETECTED Assessment and Plan (1) Acute pain of left lower extremity: Status: Acute Plan 63F PMH peripheral neuropathy, raynauds, mood disorder presented with intractable left leg pain due to fall 10 days ptp, found to have tibila plateau fracture intractable pain from left tibial plateau fracture dilaudid increase frequency to 2mg q6h prn miralax daily, add colace add lyrica 25mg at bedtime vit d wnl nwb, outpatient ortho follow up plan for acute rehab mood disorder ativan prn dvt prophylaxis - lovenox full code reason for continued hospitalization:pain control Quality Stroke Does the patient have a stroke diagnosis?: No VTE Prior VTE?: No VTE Risk Level:: Medical - moderate - high VTE Device Contraindication: Treatment Not Indicated VTE Drug Contraindication: N/A - Med Ordered
--- NOTE | 2024-01-30 13:26 | PM.PNORT ---
Subjective Subjective Date of Service: 01/30/24 Interval history: LOS day 2 Left tibial plateau fracture pain is more managable she has been out of bed using walker denies co, sob, palpitations, extreme calf pain Physical Exam Vital Signs: Vital Signs: Last Vital Signs Temp 98.6 F 01/30/24 07:40 Pulse 77 01/30/24 07:40 Resp 16 01/30/24 07:40 BP 103/60 01/30/24 07:40 Pulse Ox 98 01/30/24 07:40 O2 Del Method Room Air 01/30/24 07:40 BMI result Body Mass Index 20.6 Const: General: cooperative and no acute distress Orientation/consciousness: patient oriented x3 Resp: Effort & Inspection: normal respiratory effort and able to speak in complete sentences Cardio: Peripheral pulses: Peripheral pulses 2+ throughout Neuro: General: patient oriented x3 Extrem: Other: Left knee skin intact, no erythema or joint effusion. Tenderness along the medial joint line. ROM full with crepitus. Positive steinmans. + Laxity with varus and valgus stress. NVI. Procedures Date of Service Date of Service: 01/30/24 Progress Note: A&P Assessment and plan (1) Fracture of left tibial plateau: Status: Acute Assessment and Plan: Continue NWB LLE ROM of knee ok Brace prn IV tylenol for pain Dispo pending further PT recommendations F/u with Ortho 02/24/24 10:45am Time Spent With Patient Time: Total time managing care of this patient today ____ minutes. Quality Stroke Does the patient have a stroke diagnosis?: No VTE Prior VTE?: No VTE Risk Level:: Medical - moderate - high VTE Device Contraindication: Treatment Not Indicated VTE Drug Contraindication: N/A - Med Ordered
[2024-01-30] MEDS: Acetaminophen 1,000 MG/100 ML PIGGYBACK 400 MG IV ×2 (13:46→19:17)
[2024-01-30 15:49] VITALS: BP 103/58; PULSE 68; RESP 20; TEMP 36.4; O2SAT 95
[2024-01-30] MEDS: Morphine Sulfate 4 MG/ML CARTRIDGE IVPUSH (18:07)
[2024-01-30] MEDS: ondansetron HCL 4 MG/2 ML VIAL IVPUSH (18:11)
[2024-01-30] MEDS: Pregabalin 25 MG CAPSULE PO (22:02)
[2024-01-30] MEDS: Enoxaparin Sodium 40 MG/0.4 ML SYRINGE SUBCUT (22:03)
[2024-01-30 23:19] VITALS: BP 99/58; PULSE 64; RESP 16; TEMP 36.5; O2SAT 94
[2024-01-31] MEDS: HYDROmorphone HCl 2 MG TABLET PO ×4 (05:35→21:52)
[2024-01-31] MEDS: polyethylene glycoL 3350 17 GM POWD.PACK PO (07:11)
[2024-01-31] MEDS: Docusate Sodium 100 MG CAPSULE PO (07:11)
[2024-01-31] MEDS: LORazepam 0.5 MG TABLET PO ×2 (07:11→18:49)
[2024-01-31] MEDS: Acetaminophen 1,000 MG/100 ML PIGGYBACK 400 MG IV (07:12)
[2024-01-31] MEDS: 0.9 % Sodium Chloride Flush 3 ML SYRINGE IVFLUSH ×2 (07:15→21:12)
[2024-01-31 07:48] VITALS: BP 108/57; PULSE 65; RESP 18; TEMP 36.7; O2SAT 98
--- NOTE | 2024-01-31 08:34 | P.PNOP_ITS ---
Subjective Subjective Date of Service: 01/31/24 Principal diagnosis: left tibial plateau fracture Interval history: Mrs. Franks is seen resting comfortably bed this morning with complaints of mild to moderate left knee pain. The patient has been nonweightbearing on her left lower extremity using a knee immobilizer. The patient did have repeat x-rays after increased pain was experienced yesterday. Physical Exam Vital Signs: Vital Signs: Last Vital Signs Temp 98.0 F 01/31/24 07:48 Pulse 65 01/31/24 07:48 Resp 18 01/31/24 07:48 BP 108/57 L 01/31/24 07:48 Pulse Ox 98 01/31/24 07:48 O2 Del Method Room Air 01/31/24 07:48 BMI result Body Mass Index 20.6 Extrem: Other: Left knee examination shows that her thigh and lower leg compartments are soft, no overlying skin lesions, tenderness to palpation over her lateral tibial plateau, no gross deformity Procedures Date of Service Date of Service: 01/31/24 Progress Note: A&P Assessment and plan (1) Fracture of left tibial plateau: Status: Acute Plan Mrs. Franks is a 63-year-old female who presents with left knee pain due to a lateral tibial plateau fracture. Patient should continue nonweightbearing using the knee immobilizer. Continued non operative treatment as per Dr. Montes De Oca. patient services specialist for inpatient rehabilitation versus home physical therapy and nursing. The patient is stable at present. Time Spent With Patient Time: Total time managing care of this patient today 10 minutes. Quality Stroke Does the patient have a stroke diagnosis?: No VTE Prior VTE?: No VTE Risk Level:: Medical - moderate - high VTE Device Contraindication: Treatment Not Indicated VTE Drug Contraindication: N/A - Med Ordered
[2024-01-31] MEDS: bisacodyL 10 MG SUPP.RECT PR (08:51)
--- NOTE | 2024-01-31 09:24 | HO.PM.IMPN ---
Subjective Subjective Date of Service: 01/31/24 Interval History: still no BM, had increased swelling and pain while on commode yesterday Physical Exam Vital Signs: Vital Signs: Last Vital Signs Temp 98.0 F 01/31/24 07:48 Pulse 65 01/31/24 07:48 Resp 18 01/31/24 07:48 BP 108/57 L 01/31/24 07:48 Pulse Ox 98 01/31/24 07:48 O2 Del Method Room Air 01/31/24 07:48 BMI result Body Mass Index 20.6 Extrem: Other: Left knee examination shows that her thigh and lower leg compartments are soft, no overlying skin lesions, tenderness to palpation over her lateral tibial plateau, no gross deformity Objective Data Active Medications Acetaminophen (Acetaminophen Oral Liquid 650 Mg/20.3 Ml Solution) 650 mg PO Q4H PRN PRN Reason: moderate pain Last Admin: 01/30/24 06:58 Dose: 650 mg Documented By: KAROL Calcium Carbonate (Calcium Carbonate 750 Mg Tab.Chew) 750 mg PO Q4H PRN PRN Reason: Heartburn Docusate Sodium (Docusate Sodium 100 Mg Capsule) 100 mg PO BID [facility] Last Admin: 01/31/24 07:11 Dose: 100 mg Documented By: KAROL Enoxaparin Sodium (Enoxaparin Sodium 40 Mg/0.4 Ml Syringe) 40 mg SUBCUT Q24H [facility] Last Admin: 01/30/24 22:03 Dose: 40 mg Documented By: HARDIK Hydromorphone HCl (Hydromorphone Hcl 2 Mg Tablet) 2 mg PO Q6H PRN PRN Reason: moderate to severe pain Last Admin: 01/31/24 05:35 Dose: 2 mg Documented By: HARDIK Sodium Chloride (Ns) 1,000 mls @ 100 mls/hr IVCONT .Q10H [facility] Stop: 01/31/24 18:29 Lorazepam (Lorazepam 0.5 Mg Tablet) 0.5 mg PO Q12H [facility] Last Admin: 01/31/24 07:11 Dose: 0.5 mg Documented By: KAROL Magnesium Hydroxide (Milk Of Magnesia 30 Ml Oral.Susp) 30 ml PO DAILY PRN PRN Reason: Constipation Melatonin (Melatonin 3 Mg Tablet) 6 mg PO BEDTIME PRN PRN Reason: Insomnia Morphine Sulfate (Morphine Sulfate 4 Mg/Ml Cartridge) 4 mg IVPUSH Q4H PRN; Protocol PRN Reason: Pain, Severe (Pain Scale 7-10) Last Admin: 01/30/24 18:07 Dose: 4 mg Documented By: KAROL Ondansetron HCl (Ondansetron Hcl 4 Mg/2 Ml Vial) 4 mg IVPUSH Q8H PRN PRN Reason: Nausea and Vomiting Last Admin: 01/30/24 18:11 Dose: 4 mg Documented By: KAROL Polyethylene Glycol (Polyethylene Glycol 3350 17 Gm Powd.Pack) 17 gm PO DAILY [facility] Last Admin: 01/31/24 07:11 Dose: 17 gm Documented By: KAROL Pregabalin (Pregabalin 25 Mg Capsule) 25 mg PO BEDTIME [facility] Last Admin: 01/30/24 22:02 Dose: 25 mg Documented By: HARDIK Sodium Chloride (0.9 % Sodium Chloride Flush 3 Ml Syringe) 3 ml IVFLUSH QSHIFT [facility] Last Admin: 01/31/24 07:15 Dose: 3 ml Documented By: KAROL Labs 01/29/24 05:36 01/29/24 05:36 Assessment and Plan (1) Acute pain of left lower extremity: Status: Acute Plan 63F PMH peripheral neuropathy, raynauds, mood disorder presented with intractable left leg pain due to fall 10 days ptp, found to have tibila plateau fracture intractable pain from left tibial plateau fracture dilaudid increased frequency to 2mg q6h prn miralax daily, added colace, dulcolax DE added lyrica 25mg at bedtime - slept better vit d wnl nwb, outpatient ortho follow up plan for acute rehab dehydration 1L NS mood disorder ativan prn dvt prophylaxis - lovenox full code reason for continued hospitalization:pain control, dispo planning Quality Stroke Does the patient have a stroke diagnosis?: No VTE Prior VTE?: No VTE Risk Level:: Medical - moderate - high VTE Device Contraindication: Treatment Not Indicated VTE Drug Contraindication: N/A - Med Ordered
[2024-01-31] MEDS: 0.9 % Sodium Chloride 1,000 ML 100 ML IVCONT (09:28)
[2024-01-31 15:04] VITALS: BP 96/52; PULSE 65; RESP 16; TEMP 36.3; O2SAT 98
--- NOTE | 2024-01-31 16:04 | MHC.CM.PN ---
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
[2024-01-31] MEDS: Acetaminophen Oral Liquid 650 MG/20.3 ML SOLUTION PO (18:49)
[2024-01-31] MEDS: Enoxaparin Sodium 40 MG/0.4 ML SYRINGE SUBCUT (20:52)
[2024-01-31 23:48] VITALS: BP 105/59; PULSE 64; RESP 16; TEMP 36.4; O2SAT 96
[2024-02-01] MEDS: Ibuprofen Oral Susp 200 MG/10 ML ORAL.SUSP 600 MG PO ×3 (01:53→16:18)
[2024-02-01 07:34] VITALS: BP 99/57; PULSE 70; RESP 16; TEMP 36.6; O2SAT 95
[2024-02-01] MEDS: LORazepam 0.5 MG TABLET PO (07:50)
[2024-02-01] MEDS: HYDROmorphone HCl 2 MG TABLET PO ×2 (07:50→14:02)
[2024-02-01] MEDS: 0.9 % Sodium Chloride Flush 3 ML SYRINGE IVFLUSH (07:51)
--- NOTE | 2024-02-01 10:13 | P.PNIM_ITS ---
Subjective Subjective Date of Service: 02/01/24 Interval History: still with pain, more swelling today Physical Exam 2 Vital Signs: Vital Signs: Last Vital Signs Temp 97.8 F 02/01/24 07:34 Pulse 70 02/01/24 07:34 Resp 16 02/01/24 07:34 BP 99/57 L 02/01/24 07:34 Pulse Ox 95 02/01/24 07:34 O2 Del Method Room Air 02/01/24 07:34 BMI result Body Mass Index 20.6 Extrem: Other: Left knee examination shows that her thigh and lower leg compartments are soft, no overlying skin lesions, tenderness to palpation over her lateral tibial plateau, no gross deformity Objective Data Active Medications Acetaminophen (Acetaminophen Oral Liquid 650 Mg/20.3 Ml Solution) 650 mg PO Q4H PRN PRN Reason: moderate pain Last Admin: 01/31/24 18:49 Dose: 650 mg Documented By: VENALLAN Calcium Carbonate (Calcium Carbonate 750 Mg Tab.Chew) 750 mg PO Q4H PRN PRN Reason: Heartburn Docusate Sodium (Docusate Sodium 100 Mg Capsule) 100 mg PO BID [facility] Last Admin: 02/01/24 07:49 Dose: Not Given Documented By: TANK Non-Admin Reason: Patient Refused Enoxaparin Sodium (Enoxaparin Sodium 40 Mg/0.4 Ml Syringe) 40 mg SUBCUT Q24H [facility] Last Admin: 01/31/24 20:52 Dose: 40 mg Documented By: GUSHMAZ Hydromorphone HCl (Hydromorphone Hcl 2 Mg Tablet) 2 mg PO Q6H PRN PRN Reason: moderate to severe pain Last Admin: 02/01/24 07:50 Dose: 2 mg Documented By: TANK Ibuprofen (Ibuprofen Oral Susp 200 Mg/10 Ml Oral.Susp) 600 mg PO Q6H PRN PRN Reason: mild to moderate pain Last Admin: 02/01/24 01:53 Dose: 600 mg Documented By: ANTOIC Lorazepam (Lorazepam 0.5 Mg Tablet) 0.5 mg PO Q12H [facility] Last Admin: 02/01/24 07:50 Dose: 0.5 mg Documented By: COTEMA Magnesium Hydroxide (Milk Of Magnesia 30 Ml Oral.Susp) 30 ml PO DAILY PRN PRN Reason: Constipation Melatonin (Melatonin 3 Mg Tablet) 6 mg PO BEDTIME PRN PRN Reason: Insomnia Morphine Sulfate (Morphine Sulfate 4 Mg/Ml Cartridge) 2 mg IVPUSH Q4H PRN; Protocol PRN Reason: Pain, Severe (Pain Scale 7-10) Ondansetron HCl (Ondansetron Hcl 4 Mg/2 Ml Vial) 4 mg IVPUSH Q8H PRN PRN Reason: Nausea and Vomiting Last Admin: 01/30/24 18:11 Dose: 4 mg Documented By: KAROL Polyethylene Glycol (Polyethylene Glycol 3350 17 Gm Powd.Pack) 17 gm PO DAILY PRN PRN Reason: constipation Pregabalin (Pregabalin 25 Mg Capsule) 25 mg PO BEDTIME [facility] Last Admin: 01/30/24 22:02 Dose: 25 mg Documented By: LYSMerline Sodium Chloride (0.9 % Sodium Chloride Flush 3 Ml Syringe) 3 ml IVFLUSH QSHIFT [facility] Last Admin: 02/01/24 07:51 Dose: 3 ml Documented By: COTEMA Labs 01/29/24 05:36 01/29/24 05:36 Assessment and Plan (1) Acute pain of left lower extremity: Status: Acute Plan 63F PMH peripheral neuropathy, raynauds, mood disorder presented with intractable left leg pain due to fall 10 days ptp, found to have tibila plateau fracture intractable pain from left tibial plateau fracture dilaudid increased frequency to 2mg q6h prn miralax daily PRN, colace had succesful BM after dulcolax MI lyrica 25mg at bedtime vit d wnl nwb, outpatient ortho follow up plan for acute rehab dehydration s/p 1L NS 01/31/24 mood disorder ativan prn dvt prophylaxis - lovenox full code reason for continued hospitalization:pain control, dispo planning Quality Stroke Does the patient have a stroke diagnosis?: No VTE Prior VTE?: No VTE Risk Level:: Medical - moderate - high VTE Device Contraindication: Treatment Not Indicated VTE Drug Contraindication: N/A - Med Ordered
--- NOTE | 2024-02-01 11:19 | P.DS_ITS ---
DS: Providers Provider Date of Service: 02/01/24 Date of admission: 01/28/24 21:15 Date of discharge: 02/01/24 Primary care physician: Millicent Chapa MD Consults: 01/28/24 21:15 Consult to Orthopedics [place]ine [place] [facility] [place] [facility] Reason for consultation: tibial plateau fracture DS: Diagnosis Discharge Diagnosis (1) Acute pain of left lower extremity: Status: Acute DS: Summary Hospital Course Hospital Course: from initial hpi: 63-year-old female with pertinent history of peripheral neuropathy, rheumatoid factor positive, Raynaud's disease, mood disorder who presents to the emergency department for evaluation of left knee pain after a fall. Patient tripped and fell about 10 days ago at her house due to ongoing reconstruction. She landed on her knees and has been having left knee pain since. Patient went to [facility] and had x-rays of the left knee which was without fracture. [place] [facility] [place] and was placed in a knee immobilizer and given crutches. Patient was asked to follow-up with orthopedic surgery. She underwent an MRI outpatient on 01/25 which revealed left nondisplaced tibial plateau fracture. Patient states her pain has worsened over the last 2-3 days and she is unable to ambulate. Pain not controlled with p.o. analgesics. She also has been having calf pain. No fever, chills, chest discomfort, palpitations, shortness of breath, abdominal pain, changes in urinary or bowel habits. In the emergency department, patient requiring multiple IV opioids pushes for analgesia. hospital course: Patient was admitted for intractable pain from left tibial plateau fracture. She still has some pain but is better controlled with hydromorphone 2 mg q.6 hours p.r.n. as well as Tylenol and ibuprofen. Bowel regimen working successfully on MiraLax p.r.n. and Colace. Lyrica 25 mg at bedtime. Vitamin-D was checked and was within normal limits. Was seen by Orthopedics who recommended nonweightbearing of left lower extremity and outpatient follow up with ortho. Was seen by physical therapy recommended acute rehab. For anxiety was continue on Ativan. Patient will be discharged to acute rehab. Time Attestation Discharge Coordination Time (in mins): 33 Quality: Safe Use of Opioids Does Pt have an Active Cancer Diagnosis on the Problem List?: No Quality: Stroke Does the patient have a stroke diagnosis?: No Physical Exam Vital Signs: Vital Signs: Last Vital Signs Temp 97.8 F 02/01/24 07:34 Pulse 70 02/01/24 07:34 Resp 16 02/01/24 07:34 BP 99/57 L 02/01/24 07:34 Pulse Ox 95 02/01/24 07:34 O2 Del Method Room Air 02/01/24 07:34 BMI result Body Mass Index 20.6 Extrem: Other: Left knee examination shows that her thigh and lower leg compartments are soft, no overlying skin lesions, tenderness to palpation over her lateral tibial max teau, no gross deformity Discharge Plan Discharge Anticipated Discharge Date/Time: 02/01/24 11:15 Patient Disposition: Xfer Inpatient Rehab Fac Discharge Diagnosis: fracture of left tibial plateau Referrals: Jamie Montes De Oca MD [Physician] - 2 Weeks Millicent Chapa MD [Primary Care Provider] - 1 Week Discharge Medications: New hydromorphone 2 mg Tablet 2 mg PO Q6H PRN (Reason: moderate to severe pain) Qty: 15 0RF Rx Instructions: Partial Fill upon patient request. docusate sodium 100 mg Capsule 100 mg PO BID Qty: 0 0RF ibuprofen 100 mg/5 mL Suspension 600 mg PO Q6H PRN (Reason: mild to moderate pain) Qty: 0 0RF pregabalin [Lyrica] 25 mg Capsule 25 mg PO BEDTIME Qty: 10 0RF acetaminophen 650 mg/20.3 mL Solution 650 mg PO Q4H PRN (Reason: moderate pain) Qty: 0 0RF polyethylene glycol 3350 17 gram Powder In Packet 17 g PO DAILY PRN (Reason: constipation) Qty: 0 0RF magnesium hydroxide [Milk of Magnesia] 400 mg/5 mL Suspension 30 ml PO DAILY PRN (Reason: Constipation) Qty: 0 0RF Continued ondansetron 4 mg tablet,disintegrating 4 mg PO Q8H PRN (Reason: nausea and vomiting) Qty: 7 0RF lorazepam [Ativan] 0.5 mg tablet 0.5 mg PO TID PRN (Reason: anxiety) Qty: 7 0RF albuterol sulfate 90 mcg/actuation HFA aerosol inhaler 2 puff inhalation Q4-6H PRN (Reason: SOB/Wheezing) Diet: Advance to usual diet Activity on Discharge: As tolerated Stand Alone Forms: Patient Portal Discharge page Print Language: Upper Sorbian Care Plan Goals: recovery Health Concerns: left knee fracture Plan of Treatment: NWB LLE, brace as needed, outpatient follow up with ortho Assessment: see above Patient Instructions: Hydromorphone (By mouth), Morphine (By injection), Leg Fracture (GEN)
--- NOTE | 2024-02-01 11:54 | PC.NURSE ---
Patient requested IV be removed because it was causing discomfort. pt does not want another IV inserted. dr. chilel made aware. Per dr. chilel okay for pt to not have IV access. IV removed. No issues.
[2024-02-01] MEDS: Acetaminophen Oral Liquid 650 MG/20.3 ML SOLUTION PO (13:33)
--- NOTE | 2024-02-01 16:10 | MHC.CM.PN ---
Patient has accepted a bed offer from her 1st choice, [facility]. She is discharged today. She is scheduled to transport via S, 4pm burr picker.
[2024-02-01] MEDS: Ondansetron ODT 4 MG TAB.RAPDIS TRANSLINGU (16:18)
== END 2024-02-01 16:33 ==
LOC: HO.ED 21:18 → HO.EDOVER 21:26 → HO.S3 22:37
PROVIDERS: Admitting Provider Student in an Organized Health Care Education/Training Program; Emergency Provider Emergency Medicine Emergency Medical Services; PCP Internal Medicine; Visit Provider Internal Medicine
DX: S82.145A Nondisplaced bicondylar fracture of left tibia, initial encounter for closed fracture (principal); W01.0XXA Fall on same level from slipping, tripping and stumbling without subsequent striking against object, initial encounter; Y93.89 Activity, other specified; Y92.9 Unspecified place or not applicable; Y99.9 Unspecified external cause status; G62.9 Polyneuropathy, unspecified; F39 Unspecified mood [affective] disorder; M25.462 Effusion, left knee; E86.0 Dehydration; N89.8 Other specified noninflammatory disorders of vagina; M85.862 Other specified disorders of bone density and structure, left lower leg; I73.00 Raynaud's syndrome without gangrene; J45.909 Unspecified asthma, uncomplicated; M79.662 Pain in left lower leg; Z79.899 Other long term (current) drug therapy
CPT/HCPCS: 0352U; 36415; 73560; 73700; 80048; 80053; 82306; 85025; 85379; 85610; 85730; 93971; 96361; 96365; 96366; 96372; 96375; 96376; 97116; 97162; 97166; 97530; 99221; 99285; J0131; J1200; J1650; J2270; J2405

== ENCOUNTER → 2024-01-28 18:32 | Outpatient (BNV) | payer BC, SELFPAY | PROVIDERS: Emergency Provider Emergency Medicine Emergency Medical Services; PCP Internal Medicine; Visit Provider Physician Assistant | DX: S82.142A Displaced bicondylar fracture of left tibia, initial encounter for closed fracture (principal) | CPT/HCPCS: 99222; 99231; 99499 ==

== ENCOUNTER → 2024-01-28 21:15 | Outpatient (BNV) | payer BC, SELFPAY | PROVIDERS: Admitting Provider Student in an Organized Health Care Education/Training Program; Emergency Provider Emergency Medicine Emergency Medical Services; PCP Internal Medicine; Visit Provider Student in an Organized Health Care Education/Training Program | DX: M79.605 Pain in left leg (principal); S82.142A Displaced bicondylar fracture of left tibia, initial encounter for closed fracture | CPT/HCPCS: 99222; 99232; 99239; 99499 ==

== ENCOUNTER 2024-02-18 10:11 | Outpatient (AMB) | payer BC, SELFPAY ==
--- NOTE | 2024-02-18 10:26 | MHC.OFFVIS ---
Intake Visit Reasons: Pain Management Discussion Intake Note: Ruby is a 63 year old female who presents today for a follow up of her left knee. She sustained a fall on 01/18/24 when she tripped over a rug landing on bilateral knees. She was seen with Lana who fit her for a hinged knee brace and ordered an MRI. MRI 01/24/24: IMPRESSION: 1. Minimally depressed fracture of the lateral tibial plateau contacting the periphery of the articular surface and extending through the medial tibial spine. Prominent associated marrow edema. 2. Inner margin fraying/tearing of the lateral meniscal body posteriorly, new when compared to the prior examination. 3. Mild osseous contusion within the medial pole of the patella. 4. Small joint effusion and small Lyons's cyst. She was seen at [facility] [place] on 01/26/04 for continued left knee pain and calf pain, concern for DVT. US showed no DVT. Due to the severity ofher pain she was admitted and given IV medication. She was Discharged on 02/01/24, And was given an rx for Hydromorphone 2mg Q6h. Currrently she is struggling with pain management and has concerns regarding the blood thinner. Allergies gluten [Gluten] Allergy (Severe, Verified 01/28/24 18:29) PT HAS CELIAC DISEASE Sulfa (Sulfonamide Antibiotics) Allergy (Severe, Verified 01/28/24 18:29) LUPUS-LIKE benztropine [Cogentin] Allergy (Intermediate, Verified 01/28/24 18:29) Rash ciprofloxacin [From Cipro] Allergy (Intermediate, Verified 01/28/24 18:29) TENDONOPATHY/NEUROPATHY shellfish derived Allergy (Intermediate, Verified 01/28/24 18:29) Hives promethazine Allergy (Unknown, Verified 01/28/24 18:29) Unknown nitrofurantoin [From Macrodantin] Adverse Reaction (Severe, Verified 01/28/24 18:29) Drug induced Hep Mandelamine Allergy (Intermediate, Uncoded 01/28/24 18:29) Drug induced Hep QUINOLONES Allergy (Intermediate, Uncoded 01/28/24 18:29) Unknown HPI HPI Pain Management Discussion: Details: Ruby is a 63 year old female who presents today for a follow up of her left knee. She sustained a fall on 01/18/24 when she tripped over a rug landing on bilateral knees. She was seen with Lana who fit her for a hinged knee brace and ordered an MRI. She was seen at [facility] on 01/26/04 for continued left knee pain and calf pain, concern for DVT. US showed no DVT. Due to the severity ofher pain she was admitted and given IV medication. She was Discharged on 02/01/24, And was given an rx for Hydromorphone 2mg Q6h. Currrently she is struggling with pain management and has concerns regarding the blood thinner. [facility] Medical History Rheumatoid factor positive Post-COVID chronic cough Neuropathy Asthma Diverticulosis Kidney stone Celiac sprue Surgical History H/O cystoscopy S/P cardiac cath (~07/2020) Hx of excision of mass (~1999) Family History Mother Cervical cancer Uterine cancer History of thyroid disorder Maternal Grandmother Diabetes Stroke Maternal Grandfather Diabetes Coronary artery disease Paternal Grandmother Uterine cancer Diabetes Stroke Paternal Grandfather Stroke Father Bladder cancer Social History Household Members: Spouse Household Members Other:: Son Alcohol intake: current Alcohol intake frequency: holidays/special occasions only Patient Tobacco Use Status: Never used Tobacco Advance Directives Date on File: 04/27/22 service: No 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 Results Reviewed Results Reviewed: MRI 01/24/24: IMPRESSION: 1. Minimally depressed fracture of the lateral tibial plateau contacting the periphery of the articular surface and extending through the medial tibial spine. Prominent associated marrow edema. 2. Inner margin fraying/tearing of the lateral meniscal body posteriorly, new when compared to the prior examination. 3. Mild osseous contusion within the medial pole of the patella. 4. Small joint effusion and small Lyons's cyst. CT scan redemonstrates a minimally depressed lateral tibial plateau fracture. Assessment & Plan Assessment & Plan (1) Fracture of left tibial plateau: Code(s): S82.142A - Displaced bicondylar fracture of left tibia, initial encounter for closed fracture Category: Medical Plan: This is a very pleasant 63-year-old woman with a left tibial plateau fracture. This is nonoperative and nondisplaced and she is doing well. Unfortunately she needs to remain nonweightbearing which I think is becoming easier but is difficult for her. She should wean off the narcotics but I anticipate that this will occur slowly over the next month. She will follow up to see me in 1 month's time. Coding Level of Care Code Est Pt Level 4 (45468) Diagnoses Fracture of left tibial plateau S82.142A
== END 2024-02-18 11:07 | disposition home or self-care (01) ==
PROVIDERS: PCP Internal Medicine; Visit Provider Orthopaedic Surgery
DX: S82.142A Displaced bicondylar fracture of left tibia, initial encounter for closed fracture (principal); W01.0XXA Fall on same level from slipping, tripping and stumbling without subsequent striking against object, initial encounter
CPT/HCPCS: 99214

== ENCOUNTER → 2024-02-18 10:11 | Outpatient (BNVA) | payer BC, SELFPAY | PROVIDERS: PCP Internal Medicine; Visit Provider Orthopaedic Surgery ==

== ENCOUNTER 2024-03-07 14:41 | Emergency (ER) | payer BC, SELFPAY ==
--- NOTE | ~2024-03-07 | US_ITS ---
EXAMINATION: US TRIPLEX LOWER EXTREMITY, LEFT CLINICAL INFORMATION: Pain. COMPARISON: Left lower extremity ultrasound 01/28/2024. TECHNIQUE: Color-flow triplex imaging with spectral analysis and compression Doppler were performed on the left lower extremity. FINDINGS: Respiratory variation, normal compression and augmented flow are noted throughout the left lower extremity. The visualized common femoral vein, superficial femoral vein, profunda femoral vein, popliteal vein and midcalf posterior tibial venous segments show no evidence of deep venous thrombosis. The peroneal vein was not visualized. There is no Lyons's cyst. US/US venous duplex LE LT IMPRESSION: No evidence of deep venous thrombosis involving the left lower extremity with the caveat of nonvisualization of the peroneal vein. Electronically signed by: Meghana Oneil MD 03/07/2024 07:16 PM EDT
--- NOTE | ~2024-03-07 | US_ITS ---
EXAMINATION: NONINVASIVE ASSESSMENT OF THE ARTERIES OF THE LEFT LOWER EXTREMITY INTERPRETING VASCULAR & INTERVENTIONAL RADIOLOGIST: Parker Valencia MD CLINICAL INFORMATION: Arterial occlusion TECHNIQUE: [Left lower extremity duplex ultrasound was performed with velocity measurements and waveform analysis in the common femoral arteries, profunda femoris arteries, proximal mid and distal superficial femoral arteries, popliteal arteries and tibial vessels. This study was performed only at rest. COMPARISON: None FINDINGS: Velocities in cm/sec and phasicity as well as the presence of plaque are reported below. Minimal calcific plaque is present. Triphasic flow is present throughout the left lower extremity with the presence of biphasic flow in the peroneal and posterior tibial artery and monophasic flow in the anterior tibial artery and dorsalis pedis artery. LEFT LEG: Common Femoral: 197 Profunda Femoris: 116 Proximal SFA: 118 Mid SFA: 114 Distal SFA: 94 Popliteal: 76 Posterior tibial artery: 51 Peroneal artery: 23 Dorsalis pedis: 5.5 Anterior tibial artery: 7.5 US/US arterial duplex LE LT IMPRESSION: No evidence of a hemodynamically significant stenosis in the left lower extremity. There may be some mild tibial disease involving the distal anterior tibial artery. Electronically signed by: Parker Valencia MD 03/07/2024 10:57 PM EDT
--- NOTE | ~2024-03-07 | CT_ITS ---
EXAMINATION: CT KNEE WITHOUT CONTRAST, LEFT CLINICAL INFORMATION: Reevaluation of tibial plateau fracture. COMPARISON: CT left knee 01/28/2024. TECHNIQUE: Contiguous axial imaging was performed of the left knee without intravenous administration of contrast. Coronal and sagittal reformats were obtained at the acquisition workstation. This CT examination was performed using dose optimization techniques as appropriate, variously including the following: *Automated exposure control *Adjustment of mA and/or kV according to patient size (this includes techniques or standardized protocols for targeted exams where dose is matched to indication/reason for exam; i.e. extremities or head) *Use of iterative reconstruction technique DLP: 175 mGy-cm FINDINGS: Stable appearance of a mildly depressed fracture of the lateral tibial plateau contacting the periphery of the lateral articular surface and extending to the medial tibial spine. No interval injuries. Mild joint space narrowing and subcortical sclerosis of the medial and patellofemoral compartments. No osseous erosions. No aggressive appearing osseous lesions. No joint effusion. No significant soft tissue hematoma. CT/CT knee LT wo IV con IMPRESSION: No significant change compared to 01/28/2024. Unchanged lateral tibial plateau fracture. Electronically signed by: Meghana Oneil MD 03/07/2024 09:42 PM EDT
[2024-03-07 15:20] VITALS: BP 135/84; PULSE 98; RESP 18; TEMP 36.6; O2SAT 97; BMI 17.9
--- NOTE | 2024-03-07 15:29 | ED.GENADULT ---
HPI - General Adult General Chief complaint: Extremity Injury, Lower Stated complaint: Toe fracture, pain in leg Time Seen by Provider: 03/07/24 15:51 Source: patient Mode of arrival: ambulatory Limitations: no limitations History of Present Illness ED Provider: Jane Aguilar PA-C HPI narrative: Patient is a 63 year old assigned female at with a history of Raynauds disease, asthma, kidney stones, and a recent left tibial plateau fracture presenting to the emergency department today with worsening left knee pain. Patient states that she was doing much better while rehabing her left tibial plateau fracture when over the last week the pain has returned / worsened. Patient states that she notices when she has her leg down, the left foot gets much darker and when she elevates it, this resolves. Patient states that she has weened herself down to 1mg Dilaudid twice a day for pain management but she continues to have break through pain. Patient states that she had 2 near syncopal episodes, during both she was experiencing left knee pain. Patient denies any current dizziness, current lightheadedness, abdominal pain, nausea, vomiting, fever, chills, blurry vision, double vision, loss of vision, chest pain, difficulty breathing, shortness of breath, back pain, night sweats, pain with urination, increased urinary frequency, increased urinary urgency, blood in her urine or stool, bowel incontinence, bladder incontinence, or any other complaints at this time. Associated symptoms: denies other symptoms Treatments prior to arrival: other (1mg Dilaudid BID) Related Data Home Medications ?Medication ?Instructions ?Recorded ?Confirmed albuterol sulfate 90 mcg/actuation 2 puff inhalation Q4-6H PRN 04/07/22 01/28/24 aerosol inhaler SOB/Wheezing Previous Rx's ?Medication ?Instructions ?Recorded ondansetron 4 mg disintegrating 4 mg PO Q8H PRN nausea and 04/25/22 tablet vomiting #7 tabs acetaminophen 650 mg/20.3 mL oral 650 mg (20.3 mL) PO Q4H PRN 02/01/24 solution moderate pain #0 mL docusate sodium 100 mg capsule 100 mg PO BID #0 caps 02/01/24 ibuprofen 100 mg/5 mL oral 600 mg (30 mL) PO Q6H PRN mild to 02/01/24 suspension moderate pain #0 mL lorazepam 0.5 mg tablet (Ativan) 0.5 mg PO TID PRN anxiety #7 tabs 02/01/24 magnesium hydroxide 400 mg/5 mL 30 ml PO DAILY PRN Constipation #0 02/01/24 oral suspension (Milk of Magnesia) mL polyethylene glycol 3350 17 gram 17 g PO DAILY PRN constipation #0 02/01/24 oral powder packet ea pregabalin 25 mg capsule (Lyrica) 25 mg PO BEDTIME #10 caps 02/01/24 hydromorphone 2 mg tablet 2 mg PO Q6H PRN moderate to severe 03/03/24 pain #15 tabs meloxicam 15 mg tablet 15 mg PO DAILY PRN pain #10 tabs 03/07/24 sucralfate 100 mg/mL oral 10 ml PO QID PRN reflux #300 mL 03/07/24 suspension (Carafate) Allergies Allergy/AdvReac Type Severity Reaction Status Date / Time gluten [Gluten] Allergy Severe PT HAS Verified 03/07/24 15:29 CELIAC DISEASE Sulfa (Sulfonamide Allergy Severe LUPUS-LIKE Verified 03/07/24 15:29 Antibiotics) benztropine [Cogentin] Allergy Intermediate Rash Verified 03/07/24 15:29 ciprofloxacin [From Cipro] Allergy Intermediate TENDONOPATH Verified 03/07/24 15:29 Y/NEUROPATH Y shellfish derived Allergy Intermediate Hives Verified 03/07/24 15:29 promethazine Allergy Unknown Unknown Verified 03/07/24 15:29 nitrofurantoin AdvReac Severe Drug Verified 03/07/24 15:29 [From Macrodantin] induced Hep Mandelamine Allergy Intermediate Drug Uncoded 03/07/24 15:29 induced Hep QUINOLONES Allergy Intermediate Unknown Uncoded 03/07/24 15:29 Review of Systems Constitutional: Constitutional: Reports no additional constitutional complaints, Denies chills, Denies fever(s) and Denies night sweats Eyes: Eyes: Reports no additional eye complaints, Denies blurry vision, Denies change in vision, Denies diplopia, Denies eye discharge, Denies loss of vision and Denies eye pain ENT: Denies dizziness Cardiovascular: Cardiovascular: Reports no additional cardiovascular complaints, Denies chest pain, Denies lightheadedness, Denies Loss of Consciousness and Denies dyspnea Respiratory: Respiratory: Reports no additional respiratory complaints and Denies dyspnea Gastrointestinal: Gastrointestinal: Reports no additional gastrointestinal complaints, Denies abdominal pain, Denies melena, Denies hematochezia, Denies change in bowel habits and Denies change in stool character Genitourinary: Genitourinary: Denies hematuria, Denies urinary frequency, Denies dysuria, Denies urinary incontinence, Denies urinary hesitancy and Denies urinary urgency Musculoskeletal: Musculoskeletal: Reports no additional musculoskeletal complaints, Denies numbness and Denies tingling Comments: left knee pain Neurologic: Denies dizziness, Denies loss of vision, Denies numbness and Denies tingling Psychiatric: Psychiatric: Reports no additional psychiatric complaints Endocrine: Endocrine: Reports no additional endocrine complaints Hematologic/Lymphatic: Hematologic/Lymphatic: Reports no additional hematologic/lymphatic complaints Allergic/Immunologic: Allergic/Immunologic: Reports no additional allergic/immunologic complaints [facility] Past Medical History Attestation statement: The following information was validated with the patient. Source: old records reviewed and nursing notes reviewed Medical History Rheumatoid factor positive Post-COVID chronic cough Neuropathy Asthma Diverticulosis Kidney stone Celiac sprue Surgical History H/O cystoscopy S/P cardiac cath (~07/2020) Hx of excision of mass (~1999) Family History Family History Mother Cervical cancer Uterine cancer History of thyroid disorder Maternal Grandmother Diabetes Stroke Maternal Grandfather Diabetes Coronary artery disease Paternal Grandmother Uterine cancer Diabetes Stroke Paternal Grandfather Stroke Father Bladder cancer Social History Social History Household Members: Spouse Household Members Other:: Son Alcohol intake: current Alcohol intake frequency: holidays/special occasions only Patient Tobacco Use Status: Never used Tobacco Advance Directives: Yes Advance Directives on File: Yes Advance Directives Date on File: 04/27/22 service: No 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[employer] Physical Exam ED Vital Signs: Vital Signs - 24 hr 03/07/24 15:20 03/07/24 19:10 Temperature 97.9 F 97.8 F Pulse Rate 98 72 Respiratory Rate 18 12 Blood Pressure 135/84 116/81 Pulse Oximetry 97 95 Oxygen Delivery Method Room Air Room Air BMI result Body Mass Index 17.9 Const General: cooperative, no acute distress, alert and awake Nutritional Appearance: well nourished Orientation/consciousness: patient oriented x3 Limitations: no limitations HENMT Head: Yes normal to inspection and Yes atraumatic Ears: hearing grossly normal bilaterally and external ears normal General nose exam: Normal external nose present, no nasal discharge noted and no epistaxis Face and sinus: Yes normal facial exam, No abrasion and No laceration Mouth: Normal oral and palatal mucosa present, no drooling and no muffled voice Eyes General: appearance normal, both eyes and all related structures Periorbital: periorbital findings normal Eyelids: Yes eyelids normal Conjunctivae: conjunctivae normal Pupils: Equal, round and reactive pupils present EOM: EOMs intact bilaterally Neck Neck: Yes normal visual inspection, Yes full ROM and Yes no lymphadenopathy Chest Chest palpation & inspection: normal inspection of the chest Resp Effort & Inspection: normal respiratory effort and able to speak in complete sentences GI Inspection: Yes normal to inspection Neuro General: patient oriented x3 and moves all extremities Cranial nerves: Yes Equal, round and reactive pupils present Cognition (Neuro): normal cognition Extrem General: Yes normal to inspection, Yes full ROM and Yes capillary refill normal Psych Appearance: grossly normal Mental Status: mental status grossly normal Affect: normal affect Attitude: cooperative Thought process: Normal thought process present Thought content: Normal thought content present Insight: Good insight present (Psych) Course Course Course Narrative: RME: DOne by TENISHA Ryan. 63-year-old female status post left tibial plateau fracture ( 8 weeks ago) presents to ED for left leg/foot pain for couple of days, coldness of foot and foot at times looking purple. Patient also states calf pain. Patient states no new trauma. Patient states hot flashes. Patient denies any chest pain or shortness of breath. Physical exam left and right lower extremity same color. Left lower extremity does seem cooler than right lower extremity. Mild calf tenderness. Negative for knee swelling, redness, stiffness. Labs arterial venous ultrasound ordered Reevaluation(s) Reevaluation #1: Ghazala Dahl PA-C have accepted care of the patient and signed out pending Imaging and likely discharge home, she is requesting Tylenol, she can not take pills, we will give a 1000 mg of IV Tylenol I have independently reviewed the following tests: Ultrasound lower extremity:US TRIPLEX LOWER EXTREMITY, LEFT CLINICAL INFORMATION: Pain. COMPARISON: Left lower extremity ultrasound 01/28/2024. TECHNIQUE: Color-flow triplex imaging with spectral analysis and compression Doppler were performed on the left lower extremity. FINDINGS: Respiratory variation, normal compression and augmented flow are noted throughout the left lower extremity. The visualized common femoral vein, superficial femoral vein, profunda femoral vein, popliteal vein and midcalf posterior tibial venous segments show no evidence of deep venous thrombosis. The peroneal vein was not visualized. There is no Lyons's cyst. US/US venous duplex LE LT IMPRESSION: No evidence of deep venous thrombosis involving the left lower extremity with the caveat of nonvisualization of the peroneal vein. Electronically signed by: Meghana Oneil MD 03/07/2024 07:[address] scan left lower extremity:CT KNEE WITHOUT CONTRAST, LEFT CLINICAL INFORMATION: Reevaluation of tibial plateau fracture. COMPARISON: CT left knee 01/28/2024. TECHNIQUE: Contiguous axial imaging was performed of the left knee without intravenous administration of contrast. Coronal and sagittal reformats were obtained at the acquisition workstation. This CT examination was performed using dose optimization techniques as appropriate, variously including the following: *Automated exposure control *Adjustment of mA and/or kV according to patient size (this includes techniques or standardized protocols for targeted exams where dose is matched to indication/reason for exam; i.e. extremities or head) *Use of iterative reconstruction technique DLP: 175 mGy-cm FINDINGS: Stable appearance of a mildly depressed fracture of the lateral tibial plateau contacting the periphery of the lateral articular surface and extending to the medial tibial spine. No interval injuries. Mild joint space narrowing and subcortical sclerosis of the medial and patellofemoral compartments. No osseous erosions. No aggressive appearing osseous lesions. No joint effusion. No significant soft tissue hematoma. CT/CT knee LT wo IV con IMPRESSION: No significant change compared to 01/28/2024. Unchanged lateral tibial plateau fracture. Electronically signed by: Meghana Oneil MD 03/07/2024 09:42 PM EDT RP Duplex scan arterial left lower extremity:[address] [address] Ultrasound Report Signed Patient: Ruby Stack MR#: [id number] : 1960 Acct:[id number] Age/Sex: 63 / F ADM Date: 03/07/24 Loc: .ED Attending Dr: Ordering Physician: Juan Ryan Date of Service: 03/07/24 Procedure(s): US arterial duplex LE LT Accession Number(s): [id number] cc: Juan Ryan; Millicent Chapa MD~ EXAMINATION: NONINVASIVE ASSESSMENT OF THE ARTERIES OF THE LEFT LOWER EXTREMITY INTERPRETING VASCULAR & INTERVENTIONAL RADIOLOGIST: Parker Valencia MD CLINICAL INFORMATION: Arterial occlusion TECHNIQUE: [Left lower extremity duplex ultrasound was performed with velocity measurements and waveform analysis in the common femoral arteries, profunda femoris arteries, proximal mid and distal superficial femoral arteries, popliteal arteries and tibial vessels. This study was performed only at rest. COMPARISON: None FINDINGS: Velocities in cm/sec and phasicity as well as the presence of plaque are reported below. Minimal calcific plaque is present. Triphasic flow is present throughout the left lower extremity with the presence of biphasic flow in the peroneal and posterior tibial artery and monophasic flow in the anterior tibial artery and dorsalis pedis artery. LEFT LEG: Common Femoral: 197 Profunda Femoris: 116 Proximal SFA: 118 Mid SFA: 114 Distal SFA: 94 Popliteal: 76 Posterior tibial artery: 51 Peroneal artery: 23 Dorsalis pedis: 5.5 Anterior tibial artery: 7.5 US/US arterial duplex LE LT IMPRESSION: No evidence of a hemodynamically significant stenosis in the left lower extremity. There may be some mild tibial disease involving the distal anterior tibial artery. Electronically signed by: Parker Valencia MD 03/07/2024 10:57 PM EDT Dictated By: Parker Valencia MD Medications Administered Discontinued Medications Generic Name Dose Route Start Last Admin Trade Name Freq PRN Reason Stop Dose Admin Acetaminophen 1,000 mg in 100 mls @ 400 mls/hr 03/07/24 20:39 03/07/24 21:25 Ofirmev IV 03/07/24 20:53 Infused ONCE ONE Infusion Ketorolac Tromethamine 15 mg 03/07/24 16:42 03/07/24 18:40 Ketorolac Tromethamine 15 Mg/Ml Vial IVPUSH 03/07/24 16:43 15 mg ONCE ONE Administration Medical Decision Making Medical Decision Making [facility] Narrative: Patient is a 63 year old assigned female at with a history of Raynauds disease, asthma, kidney stones, and a recent left tibial plateau fracture presenting to the emergency department today with worsening left knee pain. Patient's physical exam was unremarkable. Patient's blood work was unremarkable. Patient's left knee CT and left lower leg ultra sounds are pending. I spoke to the orthopedic team who agreed with the plan to rule out any emergent conditions and manage the patient's pain. They informed me that some discoloration during healing of these types of injuries is normal. I explained my physical exam findings as well as all test results to the patient. I answered all questions asked by the patient. Patient signed out to the evening LAUREN pending imaging reads and re-evaluation. Differential Diagnosis Differential Diagnoses: The differential diagnosis associated with the presentation includes Worsening tibial plateau fracture Menisus injury Chronic pain Admission/Observation Consideration of admission/observation: Escalation of care including admission/observation considered Patient's disposition will be determined after imaging results and re-evaluation. Consult Healthcare Provider Management of the patient was discussed with: Manager Business Continuity (spoke to the orthopedic team as noted in the MDM Rationale portion of this note.) Lab Data [facility] Lab Attestation statement: I reviewed the patient's lab results. My interpretation of these results are in the MDM Rationale portion of this note. 03/07/24 15:44 03/07/24 15:44 Labs: Lab Results 03/07/24 Range/Units 15:44 WBC 6.0 (4.8-10.8) X10*3/uL RBC 4.15 L (4.20-5.50) X10*6/uL Hgb 12.1 (12.0-16.0) g/dl Hct 37.8 (37.0-47.0) % MCV 91.1 (80.0-98.0) fL MCH 29.2 (27.0-33.0) pg MCHC 32.0 (31.0-35.0) g/dl RDW 12.3 (11.0-16.0) % Plt Count 209 (160-400) X10*3/uL MPV 10.5 (9.4-12.3) fL Immature Gran % (Auto) 0.2 (0.0-0.4) % Neut % (Auto) 67.9 (45-73) % Lymph % (Auto) 22.4 (20-40) % Ritchie % (Auto) 6.5 (2-11) % Eos % (Auto) 2.2 (0-4) % Baso % (Auto) 0.8 (0-2) % Lymph # (Auto) 1.3 (1.2-4.9) X10*3/uL Ritchie # (Auto) 0.4 (0.1-1.2) X10*3/uL Eos # (Auto) 0.1 (0.0-0.4) X10*3/uL Baso # (Auto) 0.1 (0.0-0.2) X10*3/uL Abs Immat Gran (auto) 0.01 (0.00-0.03) X10*3/uL Absolute Neuts (auto) 4.1 (2.0-8.3) x10*3/uL Absolute Nucleated RBC 0.000 (0.0-0.012) X10*3/uL Nucleated RBC % (auto) 0.0 (0.0-0.2) /100WBC PT 10.8 L (10.9-12.4) SEC INR 0.9 (0.9-1.1) APTT 30.3 (26.0-36.8) SEC Sodium 143 (135-145) mmol/L Potassium 3.7 (3.3-5.1) mmol/L Chloride 105 (96-108) mmol/L Carbon Dioxide 30 H (22-29) mmol/L Anion Gap 12 (12-20) BUN 28 H (9-16) mg/dL Creatinine 0.70 (0.5-1.4) mg/dL Estim Creat Clear Calc 55.2 Estimated GFR > 60 Random Glucose 97 (60-115) mg/dL Calcium 9.3 (8.4-10.2) mg/dL Total Bilirubin 0.3 (0.0-1.0) mg/dL AST 18 (5-31) U/L ALT 15 (0-31) U/L Alkaline Phosphatase 52 (39-117) U/L Total Protein 6.8 (6.5-8.0) g/dL Albumin 4.4 (3.5-5.0) g/dL Critical Care Time Critical Care Time Critical Care Time: Yes Total Critical Care Time: 41 Attestation: I spent 41 minutes of Critical Care Time with this patient. This does not include time spent on separately reported billable procedures. Discharge Plan Discharge Clinical Impression: Acute knee pain Patient Disposition: Home, Self-Care Additional Instructions: The CT scan did not reveal any acute injury, when compared to the prior study. You do not have a DVT and there are no arterial occlusions noted on the studies. I provided you with copies of each imaging study you received today. You need to follow up with your orthopedist, call tomorrow to make an appointment. In the meantime, you can try the meloxicam, as directed for your pain. You can take Carafate prior to administration of the meloxicam, this medication is protective to your stomach lining. Prescriptions: New sucralfate [Carafate] 100 mg/mL suspension 10 ml PO QID PRN (Reason: reflux) Qty: 300 0RF Rx Instructions: swish in mouth and swallow; use after food/drink meloxicam 15 mg tablet 15 mg PO DAILY PRN (Reason: pain) Qty: 10 0RF No Action hydromorphone 2 mg tablet 2 mg PO Q6H PRN (Reason: moderate to severe pain) Qty: 15 0RF Rx Instructions: Partial Fill upon patient request. ondansetron 4 mg tablet,disintegrating 4 mg PO Q8H PRN (Reason: nausea and vomiting) Qty: 7 0RF docusate sodium 100 mg Capsule 100 mg PO BID Qty: 0 0RF ibuprofen 100 mg/5 mL Suspension 600 mg PO Q6H PRN (Reason: mild to moderate pain) Qty: 0 0RF pregabalin [Lyrica] 25 mg Capsule 25 mg PO BEDTIME Qty: 10 0RF acetaminophen 650 mg/20.3 mL Solution 650 mg PO Q4H PRN (Reason: moderate pain) Qty: 0 0RF polyethylene glycol 3350 17 gram Powder In Packet 17 g PO DAILY PRN (Reason: constipation) Qty: 0 0RF magnesium hydroxide [Milk of Magnesia] 400 mg/5 mL Suspension 30 ml PO DAILY PRN (Reason: Constipation) Qty: 0 0RF lorazepam [Ativan] 0.5 mg tablet 0.5 mg PO TID PRN (Reason: anxiety) Qty: 7 0RF albuterol sulfate 90 mcg/actuation HFA aerosol inhaler 2 puff inhalation Q4-6H PRN (Reason: SOB/Wheezing) Print Language: [place]
[2024-03-07 15:54] LABS: Basophils Absolute Auto 0.1 X10*3/uL (0.0-0.2); Basophils Percent Auto 0.8 % (0-2); Eosinophils Absolute Auto 0.1 X10*3/uL (0.0-0.4); Eosinophils Percent Auto 2.2 % (0-4); Hematocrit 37.8 % (37.0-47.0); Hemoglobin 12.1 g/dl (12.0-16.0); Imm Gran Abs Auto 0.01 X10*3/uL (0.00-0.03); Imm Gran Pct Auto 0.2 % (0.0-0.4); Lymphocytes Absolute Auto 1.3 X10*3/uL (1.2-4.9); Lymphocytes Percent Auto 22.4 % (20-40); MANUAL DIFF FLAG NO; Mean Corpuscular Hemoglobin 29.2 pg (27.0-33.0); Mean Corpuscular Volume 91.1 fL (80.0-98.0); Mean Platelet Volume 10.5 fL (9.4-12.3); Monocytes Absolute Auto 0.4 X10*3/uL (0.1-1.2); Monocytes Percent Auto 6.5 % (2-11); Neutrophils Absolute Auto 4.1 x10*3/uL (2.0-8.3); Neutrophils Percent Auto 67.9 % (45-73); Platelet Count 209 X10*3/uL (160-400); Red Blood Count 4.15 X10*6/uL (4.20-5.50); Red Cell Distribution Width 12.3 % (11.0-16.0)
--- OUTSIDE RECORDS SUMMARY | 2024-03-07 16:00 | XMS_ITS | Continuity of Care Document ---
Author Organization [facility] ter Address [address] [place] [id number]- Care Team Providers Care Ply Cutter Name Role Phone Nancy Eden MD, Millicent Primary Care Phys ician Encounter [facility] Date(s): 01/18/24 - 01/19/[address] [address]- Discharge Disposition: A-D/C Home Attending Physician: Natan DE JESUS, Evelyn Love Admitting Physician: Evelyn Gama MD Referring Physician: Not on Staff, Referring MD Allergies, Adverse Reactions, Alerts Substance Reaction Severity Status ciprofloxacin 1 Active Mandelamine Active Glutens malabsorption Active sulfa drugs Active quinolone antibiotics 2 Peripheral neuropathy Active shellfish Active Macrodantin rash Active Cogentin double vision, migraine Acti ve Compazine Active Bee Stings Active Contrast Dye 3 [...] Refills, Maintenance, 08/03/23 17:09:00 EST, ER Tablet, [facility] 3, Partial fill upon patient request if the prescription is for a schedule II opioid drug., 155, cm, 08/03/23 16:41:00... Start Date: 08/03/23 Status: Ordered MorPHINE Inj 2 mg, Injection, IV Push Slowly, Every 5 minutes for 3 doses/times, PRN for Pain , Moderate, and SBP greater than 100, Routine, 01/18/24 22:39:00 EDT, Stop date Limited # of times Start Date: 01/18/24 Stop Date: 01/19/24 Status: Completed predniSONE 10 mg oral tablet 4 tablet [...] Exam Date Time Procedure Performing Provider Status 01/18/24 11:04 PM XR Hip w/Pelvis 2-3 View Left Tray Garcia (Verified) Notes: (XR Hip w/Pelvis 2-3 View Left) Reason For Exam: With Pain;Trauma RESULT: XR Hip w/Pelvis 2-3 View Left XR Hip w/Pelvis 2-3 View Left INDICATION: Pt sts she tripped on a rug in her room, falling forward and hyperflex her left leg. Prior left knee injury from mechanical fall in 2020 in a parking lot. Associated swelling to the knee,no deformity or discoloration present. COMPARISON: None. FINDINGS: There is no fracture or dislocation. Mild degenerative changes of bilateral hips. Normal soft tissues. IMPRESSION: No acute fracture or osseous abnormality. I have personally reviewed the images and I agree with this report. WSN: [id number] Ordering Physician: Evelyn Gama Dictated By: Davi Crump MD Dictated Date/Time: 01/18/24 11:13 p Reviewed By: Isidoro Porter MD Signed By: Isidoro Porter MD Signed Date/Time: 01/18/24 11:18 pm Transcribed By: MAREN Transcribed Date/Time: 01/18/24 11:12 pm * Exam Date Time Procedure Performing Provider Status 01/18/24 11:04 PM Knee 3 Views Left Duane Garcia; Viktoriya (Verified) Notes: (Knee 3 Views Left) Reason For Exam: Trauma RESULT: Knee 3 Views Left Knee 3 Views Left Hx of Present Illness: Pt sts she tripped on a rug in her room, falling forward and hyperflex her left leg.Prior left knee injury from mechancial fall in 2020 in a parking lot. Associated swelling tothe knee, no deformity or discoloration present. COMPARISON: 04/30/2021. FINDINGS: There is no evidence of acute or healing fracture, dislocation or bone lesion. Mild tricompartmental osteoarthritis but no evidence of osteochondral defect or intra-articular loose body. Tiny joint effusion. IMPRESSION: Tiny joint effusion with no acute fracture or osseous abnormality. I have personally reviewed the images and I agree with this report. WSN: [id number] Ordering Physician: Evelyn Gama Dictated By: Davi Crump MD Dictated Date/Time: 01/18/24 11:12 p Reviewed By: Isidoro Porter MD Signed By: Isidoro Porter MD Signed Date/Time: 01/18/24 11:17 pm Transcribed By: CSB Transcribed Date/Time: 01/18/24 11:07 pm Vital Signs Most recent to oldest [Reference Range]: 1 2 3 Oxygen Saturation [94-100 %] 99 % (01/19/24 12:19 AM) 99 % (01/18/24 11:41 PM) 100 % (01/18/24 9:14 PM) Pulse Rate [55-90 bpm] 83 bpm (01/19/24 12:19 AM) 80 bpm (01/18/24 11:41 PM) 93 bpm *H* (01/18/24 9:14 PM) Blood Pressure [90-138/55-84 mm Hg] 105/60mm Hg (01/19/24 12:19 AM) 114/60mm Hg (01/18/24 11:41 PM) 104/65mm Hg (01/18/24 9:14 PM) Respiratory Rate [16-30 br/min] 16 br/min (01/19/24 12:53 AM) 16 br/min (01/19/24 12:23 AM) 16 br/min (01/19/24 12:19 AM) Temperature [96.8-100.4 DegF] 98.1 DegF (01/18/24 11:41 PM) 98.1 DegF (01/18/24 9:14 PM) Mode of Delivery (Oxygen) Room air (01/19/24 12:19 AM) Room air (01/18/24 11:41 PM) Room air (01/18/24 9:14 PM) Blood pressure sites Arm, right (01/19/24 12:19 AM) Arm, right (01/18/24 11:41 PM) Arm, right (01/18/24 9:14 PM) Temperature Route Oral (01/18/24 11:41 PM) Oral (01/18/24 9:14 PM) Social History Social History Type Response Smoking Status Never smoker entered on: 10/23/14 Sex EKG study * Event Display: ECG 12-Lead Authored Date: Please click on pdf link to open report * Event Display: ECG 12-Lead Authored Date: Ventricular Rate: 75 BPM Atrial Rate: 75 BPM P-R Interval: 176 ms QRS Duration: 132 ms Q-T Interval: 406 ms QTC Calculation(Bazett): 453 ms P [place]: 75 degrees R [place]: -34 degrees T [place]: 80 degrees Normal sinus rhythm Left axis deviation Left bundle branch block Abnormal ECG When compared with ECG of 24-MAR-2021 13:33, Left bundle branch block is now Present Minimal criteria for Septal infarct are no longer Present Confirmed by JELANI RIVERO MD ([id number]) on 01/19/2024 1:31:10 PM [place]: JELANI RVIERO MD * Event Display: EKG Authored Date: Patient Care team information Care Team Personnel Name: Jessie Augustin Position: [facility] Outreach Member Role: [employer] Consulting Physician Name: Paulo Patterson RN Position: S RN Member Role: Primary Care Nurse Name: Millicent Lugo MD Position: Reference Physician Member Role: PCP Address: Address: [address] [place] [address] Name: Tara Milian RN Position: S RN Member Role: Primary Care Nurse Name: Ramandeep Kumari Position: S RN Member Role: Primary Care Nurse Care Team Related Persons Name: ZAYNAB GERARDO Address: [facility] Name: AYAAN EPPS Name: LAZARA CASANOVA Address: home [address] [place] [address] Name: RASHEEDA LIZARRAGA Address: home [address] [place] [address]
[2024-03-07 16:07] LABS: INTERNATIONAL NORM RATIO 0.9 (0.9-1.1); Prothrombin Time 10.8 SEC (10.9-12.4)
[2024-03-07 16:10] LABS: Partial Thromboplastin Time 30.3 SEC (26.0-36.8)
[2024-03-07 16:16] LABS: Alanine Aminotransferase 15 U/L (0-31); Albumin Level 4.4 g/dL (3.5-5.0); Alkaline Phosphatase 52 U/L (39-117); Anion Gap 12 (12-20); Aspartate Amino Transferase 18 U/L (5-31); Bilirubin Total 0.3 mg/dL (0.0-1.0); Blood Urea Nitrogen 28 mg/dL (9-16); Calcium 9.3 mg/dL (8.4-10.2); Carbon Dioxide 30 mmol/L (22-29); Chloride 105 mmol/L (96-108); Creatinine Clr Calc Pharmacy 55.2; Estimated Glomerular Filt Rate > 60; Glucose Random 97 mg/dL (60-115); Potassium 3.7 mmol/L (3.3-5.1); Sodium 143 mmol/L (135-145); Total Protein 6.8 g/dL (6.5-8.0)
[2024-03-07] MEDS: Ketorolac Tromethamine 15 MG/ML VIAL IVPUSH (18:40)
[2024-03-07 19:10] VITALS: BP 116/81; PULSE 72; RESP 12; TEMP 36.6; O2SAT 95
[2024-03-07] MEDS: Acetaminophen 1,000 MG/100 ML PIGGYBACK 400 MG IV (20:59)
[2024-03-07 23:47] VITALS: BP 105/53; PULSE 73; RESP 15; TEMP 36.4; O2SAT 96
[2024-03-08 00:43] VITALS: BP 105/53; PULSE 73; RESP 15; TEMP 36.4; O2SAT 96
== END 2024-03-08 00:43 | disposition home or self-care (01) ==
PROVIDERS: Physician Assistant; Emergency Provider Emergency Medicine; PCP Internal Medicine
DX: M25.562 Pain in left knee (principal); R60.0 Localized edema; R10.2 Pelvic and perineal pain; Z79.899 Other long term (current) drug therapy
CPT/HCPCS: 36415; 73700; 80053; 85025; 85610; 85730; 93926; 93971; 96365; 96375; 99284; J0131; J1885

== ENCOUNTER 2024-03-17 11:18 | Outpatient (AMB) | payer BC, SELFPAY ==
--- NOTE | 2024-03-17 11:19 | A.OFFVIS_ITS ---
Intake Visit Reasons: OV f/u Lt knee tibial plateau fx-xrays Intake Note: Ruby is a 63 year old female who presents today for a follow up of her left knee. She sustained a fall on 01/18/24 when she tripped over a rug landing on bilateral knees. Because of this fall she sustained a Left Tibial Plateau Fracture, that will be managed non operatively. She is to remain NWB and is in the process of weaning from narcotics. alternated between nighttime is the worse. She has been discharged from home PT, however she feels she needs to continue PT whether outpatient or at home. Patient was seen at [facility] ED with complaints of increased pain and discoloration of the foot when leg is not elevated. She reports weaning to 1mg Dilaudid with breakthrough pain causing 2 near syncopal episodes. US revealed no DVT CT Scan done: FINDINGS: Stable appearance of a mildly depressed fracture of the lateral tibial plateau contacting the periphery of the lateral articular surface and extending to the medial tibial spine. No interval injuries. Mild joint space narrowing and subcortical sclerosis of the medial and patellofemoral compartments. No osseous erosions. No aggressive appearing osseous lesions. No joint effusion. No significant soft tissue hematoma. Allergies gluten [Gluten] Allergy (Severe, Verified 03/07/24 15:29) PT HAS CELIAC DISEASE Sulfa (Sulfonamide Antibiotics) Allergy (Severe, Verified 03/07/24 15:29) LUPUS-LIKE benztropine [Cogentin] Allergy (Intermediate, Verified 03/07/24 15:29) Rash ciprofloxacin [From Cipro] Allergy (Intermediate, Verified 03/07/24 15:29) TENDONOPATHY/NEUROPATHY shellfish derived Allergy (Intermediate, Verified 03/07/24 15:29) Hives promethazine Allergy (Unknown, Verified 03/07/24 15:29) Unknown nitrofurantoin [From Macrodantin] Adverse Reaction (Severe, Verified 03/07/24 15:29) Drug induced Hep Mandelamine Allergy (Intermediate, Uncoded 03/07/24 15:29) Drug induced Hep QUINOLONES Allergy (Intermediate, Uncoded 03/07/24 15:29) Unknown HPI HPI OV f/u Lt knee tibial plateau fx-xrays: Details: Ruby is a 63 year old female who presents today for a follow up of her left knee. She sustained a fall on 01/18/24 when she tripped over a rug landing on bilateral knees. Because of this fall she sustained a Left Tibial Plateau Fracture, that will be managed non operatively. She is to remain NWB and is in the process of weaning from narcotics. alternated between nighttime is the worse. She has been discharged from home PT, however she feels she needs to continue PT whether outpatient or at home. Patient was seen at [facility] ED with complaints of increased pain and discoloration of the foot when leg is not elevated. She reports weaning to 1mg Dilaudid with breakthrough pain causing 2 near syncopal episodes. [facility] Medical History Rheumatoid factor positive Post-COVID chronic cough Neuropathy Asthma Diverticulosis Kidney stone Celiac sprue Surgical History H/O cystoscopy S/P cardiac cath (~07/2020) Hx of excision of mass (~1999) Family History Mother Cervical cancer Uterine cancer History of thyroid disorder Maternal Grandmother Diabetes Stroke Maternal Grandfather Diabetes Coronary artery disease Paternal Grandmother Uterine cancer Diabetes Stroke Paternal Grandfather Stroke Father Bladder cancer Social History Household Members: Spouse Household Members Other:: Son Alcohol intake: current Alcohol intake frequency: holidays/special occasions only Patient Tobacco Use Status: Never used Tobacco Advance Directives Date on File: 04/27/22 service: No 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 US revealed no DVT CT Scan done: IMPRESSION: No significant change compared to 01/28/2024. Unchanged lateral tibial plateau fracture. Assessment & Plan Assessment & Plan (1) Fracture of left tibial plateau: Code(s): S82.142A - Displaced bicondylar fracture of left tibia, initial encounter for closed fracture Category: Medical Plan: 63-year-old woman 2 months status post tibial plateau fracture. She is doing well. I recommend continued to decrease the Dilaudid, a refill was sent to the pharmacy. I also recommend outpatient physical therapy for range of motion. Follow up in 4 weeks at which time we will begin weight-bearing. Orders: Orders PT Evaluation and Treatment Today S82.142A - Displaced bicondylar fracture of left tibia, initial encounter for closed fracture Medications: Changed From hydromorphone Partial Fill upon patient request. 2 mg PO Q6H PRN 15 tabs 0RF moderate to severe pain To hydromorphone Partial Fill upon patient request. 2 mg PO BID PRN 30 tabs 0RF moderate to severe pain Coding Level of Care Code Est Pt Level 4 (08776) Diagnoses Fracture of left tibial plateau S82.142A
== END 2024-03-17 12:02 | disposition home or self-care (01) ==
PROVIDERS: PCP Internal Medicine; Visit Provider Orthopaedic Surgery
DX: S82.142A Displaced bicondylar fracture of left tibia, initial encounter for closed fracture (principal)
CPT/HCPCS: 99214

== ENCOUNTER → 2024-03-17 11:18 | Outpatient (BNVA) | payer BC, SELFPAY | PROVIDERS: PCP Internal Medicine; Visit Provider Orthopaedic Surgery ==

== ENCOUNTER 2024-04-14 11:00 | Outpatient (REF) | payer BC, SELFPAY ==
--- NOTE | ~2024-04-14 | XR_ITS ---
EXAMINATION: XR KNEE, LEFT XR KNEE, RIGHT CLINICAL INFORMATION: Pain in the knees. COMPARISON: CT left knee from 03/07/2024. TECHNIQUE: 3 views of the left knee (AP, lateral, and sunrise views). One view of the right knee (AP view). FINDINGS: Left Knee: No evidence of acute fracture or dislocation of the left knee. Left stable appearance of mild depression of the lateral tibial plateau. Mild to moderate diffuse demineralization. No demonstrated suspicious lytic or sclerotic osseous lesions. No cortical erosions. Mild loss of tibiofemoral joint space. The patellofemoral joint space is preserved. The patella is well aligned within its femoral groove. No radiopaque intra-articular bodies. No evidence of significant joint effusion. No focal soft tissue swelling. No radiopaque foreign bodies. Right Knee: No demonstrated acute fracture or dislocation of the right knee on the single AP view. No demonstrated lytic or sclerotic osseous lesions. No cortical erosions. Mild loss of tibiofemoral joint space. No demonstrated focal soft tissue swelling. No radiopaque foreign bodies. XR/XR knee RT 1V IMPRESSION: 1. No evidence of acute fracture or dislocation of the bilateral knees. 2. Mild degenerative arthropathy of the knees. 3. Stable appearance of mild depression of the left lateral tibial plateau. Electronically signed by: Donny Espinal DO 05/02/2024 02:19 PM EST
--- NOTE | ~2024-04-14 | XR_ITS ---
EXAMINATION: XR KNEE, LEFT XR KNEE, RIGHT CLINICAL INFORMATION: Pain in the knees. COMPARISON: CT left knee from 03/07/2024. TECHNIQUE: 3 views of the left knee (AP, lateral, and sunrise views). One view of the right knee (AP view). FINDINGS: Left Knee: No evidence of acute fracture or dislocation of the left knee. Left stable appearance of mild depression of the lateral tibial plateau. Mild to moderate diffuse demineralization. No demonstrated suspicious lytic or sclerotic osseous lesions. No cortical erosions. Mild loss of tibiofemoral joint space. The patellofemoral joint space is preserved. The patella is well aligned within its femoral groove. No radiopaque intra-articular bodies. No evidence of significant joint effusion. No focal soft tissue swelling. No radiopaque foreign bodies. Right Knee: No demonstrated acute fracture or dislocation of the right knee on the single AP view. No demonstrated lytic or sclerotic osseous lesions. No cortical erosions. Mild loss of tibiofemoral joint space. No demonstrated focal soft tissue swelling. No radiopaque foreign bodies. XR/XR knee LT 3V IMPRESSION: 1. No evidence of acute fracture or dislocation of the bilateral knees. 2. Mild degenerative arthropathy of the knees. 3. Stable appearance of mild depression of the left lateral tibial plateau. Electronically signed by: Donny Espinal DO 05/02/2024 02:19 PM EST
== END 2024-04-14 11:01 | disposition home or self-care (01) ==
LOC: HO.HOSX 11:00
PROVIDERS: Visit Provider Orthopaedic Surgery
DX: M25.562 Pain in left knee (principal); M25.561 Pain in right knee
CPT/HCPCS: 73560; 73562

== ENCOUNTER 2024-04-14 11:07 | Outpatient (AMB) | payer BC, SELFPAY ==
--- NOTE | 2024-04-14 11:13 | A.OFFVIS_ITS ---
Vital Signs 04/14/24 11:14 Height 5 ft 1 in Weight 95 lb BMI 17.9 Intake Visit Reasons: OV - Left Tibial Plateau Fracture 01/18/24 Intake Note: Ruby is a 63 year old female who presents today for a follow up of her left knee. She sustained a fall on 01/18/24 when she tripped over a rug landing on bilateral knees. Because of this fall she sustained a Left Tibial Plateau Fracture, that will be managed non operatively. At this time she remains NWB and is weaning from narcotics. Working with [facility] to begin WBAT and increase ROM Allergies gluten [Gluten] Allergy (Severe, Verified 03/07/24 15:29) PT HAS CELIAC DISEASE Sulfa (Sulfonamide Antibiotics) Allergy (Severe, Verified 03/07/24 15:29) LUPUS-LIKE benztropine [Cogentin] Allergy (Intermediate, Verified 03/07/24 15:29) Rash ciprofloxacin [From Cipro] Allergy (Intermediate, Verified 03/07/24 15:29) TENDONOPATHY/NEUROPATHY shellfish derived Allergy (Intermediate, Verified 03/07/24 15:29) Hives promethazine Allergy (Unknown, Verified 03/07/24 15:29) Unknown nitrofurantoin [From Macrodantin] Adverse Reaction (Severe, Verified 03/07/24 15:29) Drug induced Hep Mandelamine Allergy (Intermediate, Uncoded 03/07/24 15:29) Drug induced Hep QUINOLONES Allergy (Intermediate, Uncoded 03/07/24 15:29) Unknown HPI HPI OV - Left Tibial Plateau Fracture 01/18/24: Details: Three months status post left tibial plateau fracture treated conservatively. She had been doing PT and has improved but still with pain throughout the day. She is weaning off her narcotics. [facility] Medical History Rheumatoid factor positive Post-COVID chronic cough Neuropathy Asthma Diverticulosis Kidney stone Celiac sprue Surgical History H/O cystoscopy S/P cardiac cath (~07/2020) Hx of excision of mass (~1999) Family History Mother Cervical cancer Uterine cancer History of thyroid disorder Maternal Grandmother Diabetes Stroke Maternal Grandfather Diabetes Coronary artery disease Paternal Grandmother Uterine cancer Diabetes Stroke Paternal Grandfather Stroke Father Bladder cancer Social History Household Members: Spouse Household Members Other:: Son Alcohol intake: current Alcohol intake frequency: holidays/special occasions only Patient Tobacco Use Status: Never used Tobacco Advance Directives Date on File: 04/27/22 service: No 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 Results Reviewed Results Reviewed: I personally reviewed relevant radiographs. Healed left tibial plateau fracture. Disuse osteopenia present Assessment & Plan Assessment & Plan (1) Fracture of left tibial plateau: Code(s): S82.142A - Displaced bicondylar fracture of left tibia, initial encounter for closed fracture Category: Medical Plan: Fracture of left tibial plateau. May begin weight-bearing as tolerated. We will progress slowly. Weaning narcotics. Follow up in 4 weeks. No work for approximately 4-6 weeks Orders: Orders XR knee LT 3V Today M25.562 - Pain in left knee XR knee RT 1V Today M25.569 - Pain in unspecified knee Medications: Changed From hydromorphone Partial Fill upon patient request. 2 mg PO BID PRN 15 tabs 0RF moderate to severe pain To hydromorphone Partial Fill upon patient request. 2 mg PO DAILY PRN 30 tabs 0RF moderate to severe pain Coding Level of Care Code Est Pt Level 3 (20474) Diagnoses Fracture of left tibial plateau S82.142A
[2024-04-14 11:14] VITALS: BMI 17.9
== END 2024-04-14 11:42 | disposition home or self-care (01) ==
PROVIDERS: PCP Internal Medicine; Visit Provider Orthopaedic Surgery
DX: S82.142A Displaced bicondylar fracture of left tibia, initial encounter for closed fracture (principal)
CPT/HCPCS: 99213

== ENCOUNTER 2024-05-15 12:08 | Outpatient (AMB) | payer BC, SELFPAY ==
--- NOTE | 2024-05-15 12:10 | A.OFFVIS_ITS ---
Vital Signs 05/15/24 12:11 Height 5 ft 1 in Weight 95 lb BMI 17.9 Intake Visit Reasons: OV - Left Tibial Plateau Fracture 01/18/24 Intake Note: Ruby is a 63 year old female who presents today for a follow up of her left knee. She sustained a fall on 01/18/24 when she tripped over a rug landing on bilateral knees. Because of this fall she sustained a Left Tibial Plateau Fracture, that will be managed non operatively. She was to begin weight bearing as tolerated but presents today in a wheelchair. Allergies gluten [Gluten] Allergy (Severe, Verified 03/07/24 15:29) PT HAS CELIAC DISEASE Sulfa (Sulfonamide Antibiotics) Allergy (Severe, Verified 03/07/24 15:29) LUPUS-LIKE benztropine [Cogentin] Allergy (Intermediate, Verified 03/07/24 15:29) Rash ciprofloxacin [From Cipro] Allergy (Intermediate, Verified 03/07/24 15:29) TENDONOPATHY/NEUROPATHY shellfish derived Allergy (Intermediate, Verified 03/07/24 15:29) Hives promethazine Allergy (Unknown, Verified 03/07/24 15:29) Unknown nitrofurantoin [From Macrodantin] Adverse Reaction (Severe, Verified 03/07/24 15:29) Drug induced Hep Mandelamine Allergy (Intermediate, Uncoded 03/07/24 15:29) Drug induced Hep QUINOLONES Allergy (Intermediate, Uncoded 03/07/24 15:29) Unknown HPI HPI OV - Left Tibial Plateau Fracture 01/18/24: Details: Ruby is a 63 year old female who presents today for a follow up of her left knee. She sustained a fall on 01/18/24 when she tripped over a rug landing on bilateral knees. Because of this fall she sustained a Left Tibial Plateau Fracture, that will be managed non operatively. She was to begin weight bearing as tolerated but presents today in a wheelchair. [facility] Medical History Rheumatoid factor positive Post-COVID chronic cough Neuropathy Asthma Diverticulosis Kidney stone Celiac sprue Surgical History H/O cystoscopy S/P cardiac cath (~07/2020) Hx of excision of mass (~1999) Family History Mother Cervical cancer Uterine cancer History of thyroid disorder Maternal Grandmother Diabetes Stroke Maternal Grandfather Diabetes Coronary artery disease Paternal Grandmother Uterine cancer Diabetes Stroke Paternal Grandfather Stroke Father Bladder cancer Social History Household Members: Spouse Household Members Other:: Son Alcohol intake: current Alcohol intake frequency: holidays/special occasions only Patient Tobacco Use Status: Never used Tobacco Advance Directives Date on File: 04/27/22 service: No 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 No effusion. Assessment & Plan Assessment & Plan (1) Fracture of left tibial plateau: Code(s): S82.142A - Displaced bicondylar fracture of left tibia, initial encounter for closed fracture Category: Medical Plan: Fragile improvement for months status post left tibial plateau fracture. Emend she wean narcotics. I have also restarted a low-dose Lyrica for sleep. She should continue physical therapy and work on weight-bearing as tolerated. Medications: Refilled pregabalin (Lyrica) 25 mg PO BEDTIME 30 caps 2RF Coding Level of Care Code Est Pt Level 3 (96138) Diagnoses Fracture of left tibial plateau S82.142A
[2024-05-15 12:11] VITALS: BMI 17.9
== END 2024-05-15 12:52 | disposition home or self-care (01) ==
PROVIDERS: PCP Internal Medicine; Visit Provider Orthopaedic Surgery
DX: S82.142A Displaced bicondylar fracture of left tibia, initial encounter for closed fracture (principal)
CPT/HCPCS: 99213

== ENCOUNTER → 2024-05-15 12:08 | Outpatient (BNVA) | payer BC, SELFPAY | PROVIDERS: PCP Internal Medicine; Visit Provider Orthopaedic Surgery ==

== ENCOUNTER 2024-05-29 14:14 | Emergency (ER) | payer BC, SELFPAY ==
--- NOTE | ~2024-05-29 | CT_ITS ---
CLINICAL HISTORY: pain CT LEFT KNEE WITHOUT CONTRAST Comparison: CR/SR - XR KNEE LT 3V - 05/29/24 15:[address]/AL/SR - CT KNEE LT WO IV CON - 03/07/24 19:[address]/AL/SR - CT KNEE LT WO IV CON - 01/28/24 20:23 EDT Findings: Previous thin curvilinear sclerotic density in the lateral tibial plateau is not appreciated at this time. Stable mild depression of the articulating surface. No new fracture. No dislocation. No joint effusion. Marked diffuse bony demineralization. Mild tricompartmental joint space narrowing. Impression: 1. Near-complete healing of prior lateral tibial plateau fracture. No new or interval fracture. This document has been electronically signed by: Cindy Grayson DO on 05/29/2024 17:21:03
--- NOTE | ~2024-05-29 | XR_ITS ---
EXAMINATION: XR KNEE, LEFT CLINICAL INFORMATION: pain COMPARISON: None available. TECHNIQUE: Four views of the left knee. FINDINGS: There is diffuse osteopenia. No visible acute fracture, dislocation or subluxation seen. There is no abnormal joint effusion or loose bodies. XR/XR knee LT 3V IMPRESSION: No acute fracture or dislocation. Diffuse osteopenia. Electronically signed by: Juan Caban MD 05/29/2024 04:57 PM EST
[2024-05-29 14:23] VITALS: BP 147/69; PULSE 102; RESP 20; TEMP 37; O2SAT 98; BMI 19.8
--- NOTE | 2024-05-29 14:26 | ED_ITS ---
HPI - General Adult General Chief complaint: Extremity Problem Stated complaint: Pain at Fracture Site Was at PT Time Seen by Provider: 05/29/24 15:50 Source: patient Mode of arrival: ambulatory Limitations: no limitations History of Present Illness ED Provider: KORIN MAYS PA-C HPI narrative: 63 year old female with pmhx significant for neuropathy, asthma, diverticulosis, renal stones, celiac sprue, chronic knee pain presents to the ED today for evaluation of acute on chronic left knee pain. Patient sustained a left tibial plateau fracture s/p fall in December 2023. Over this time she has been completing physical therapy and has been able to ambulate assisted by a walker. Today while at PT, she attempted to step up with her LLE assisted by just one hand on the railing. As she placed her left foot on the step, her knee buckled. She did not fall to the ground/ fall onto her knee. She admits to immediate pain along the lateral aspect of her left knee. She states this is the same pain she felt during her initial fracture. Reports concern she re-fractured her leg. She has been unable to bear weight on her LLE since her appointment today. Massimo new numbness/tingling/weakness of the LLE. Related Data Home Medications ?Medication ?Instructions ?Recorded ?Confirmed albuterol sulfate 90 mcg/actuation 2 puff inhalation Q4-6H PRN 04/07/22 01/28/24 aerosol inhaler SOB/Wheezing Previous Rx's ?Medication ?Instructions ?Recorded ondansetron 4 mg disintegrating 4 mg PO Q8H PRN nausea and 04/25/22 tablet vomiting #7 tabs acetaminophen 650 mg/20.3 mL oral 650 mg (20.3 mL) PO Q4H PRN 02/01/24 solution moderate pain #0 mL docusate sodium 100 mg capsule 100 mg PO BID #0 caps 02/01/24 ibuprofen 100 mg/5 mL oral 600 mg (30 mL) PO Q6H PRN mild to 02/01/24 suspension moderate pain #0 mL lorazepam 0.5 mg tablet (Ativan) 0.5 mg PO TID PRN anxiety #7 tabs 02/01/24 magnesium hydroxide 400 mg/5 mL 30 ml PO DAILY PRN Constipation #0 02/01/24 oral suspension (Milk of Magnesia) mL polyethylene glycol 3350 17 gram 17 g PO DAILY PRN constipation #0 02/01/24 oral powder packet ea meloxicam 15 mg tablet 15 mg PO DAILY PRN pain #10 tabs 03/07/24 sucralfate 100 mg/mL oral 10 ml PO QID PRN reflux #300 mL 03/07/24 suspension (Carafate) hydromorphone 2 mg tablet 2 mg PO DAILY PRN moderate to 04/14/24 severe pain #30 tabs pregabalin 25 mg capsule (Lyrica) 25 mg PO BEDTIME #30 caps 05/15/24 naproxen 500 mg tablet 500 mg PO Q12H PRN pain (scale 05/29/24 score 1-3) #20 tabs Allergies Allergy/AdvReac Type Severity Reaction Status Date / Time gluten [Gluten] Allergy Severe PT HAS Verified 05/29/24 14:26 CELIAC DISEASE Sulfa (Sulfonamide Allergy Severe LUPUS-LIKE Verified 05/29/24 14:26 Antibiotics) benztropine [Cogentin] Allergy Intermediate Rash Verified 05/29/24 14:26 ciprofloxacin [From Cipro] Allergy Intermediate TENDONOPATH Verified 05/29/24 14:26 Y/NEUROPATH Y shellfish derived Allergy Intermediate Hives Verified 05/29/24 14:26 promethazine Allergy Unknown Unknown Verified 05/29/24 14:26 nitrofurantoin AdvReac Severe Drug Verified 05/29/24 14:26 [From Macrodantin] induced Hep Mandelamine Allergy Intermediate Drug Uncoded 05/29/24 14:26 induced Hep QUINOLONES Allergy Intermediate Unknown Uncoded 05/29/24 14:26 Review of Systems Review of Systems: Constitutional: No fever, chills, fatigue, night sweats, weight changes ENT/Mouth: No ear pain, hearing loss, nasal congestion, sinus pain, rhinorrhea, sore throat Eyes: No eye pain, swelling, redness, vision changes, discharge Cardio: No chest pain, palpitations, ORELLANA, orthopnea, peripheral edema Pulm: No SOB, cough, sputum, wheezing, dyspnea, hemoptysis GI: No nausea, vomiting, hematemesis, abdominal pain, diarrhea, constipation, hematochezia, melena : No irregular bleeding, dysuria, frequency, urgency, hesitancy, hematuria, flank pain, urinary flow changes, urinary incontinence or retention MSK: No back pain, neck pain, joint pain, myalgias, +L knee pain Skin: No lesions, rashes Neuro: No weakness, numbness, paresthesias, LOC, dizziness, headache Psych: No anxiety/panic, depression, SI/HI, AH/VH All other systems reviewed and are negative. [facility] Past Medical History Attestation statement: The following information was validated with the patient. Source: old records reviewed and nursing notes reviewed Medical History Rheumatoid factor positive Post-COVID chronic cough Neuropathy Asthma Diverticulosis Kidney stone Celiac sprue Surgical History H/O cystoscopy S/P cardiac cath (~07/2020) Hx of excision of mass (~1999) Family History Family History Mother Cervical cancer Uterine cancer History of thyroid disorder Maternal Grandmother Diabetes Stroke Maternal Grandfather Diabetes Coronary artery disease Paternal Grandmother Uterine cancer Diabetes Stroke Paternal Grandfather Stroke Father Bladder cancer Social History Social History Household Members: Spouse Household Members Other:: Son Alcohol intake: current Alcohol intake frequency: holidays/special occasions only Patient Tobacco Use Status: Never used Tobacco Advance Directives Date on File: 04/27/22 service: No 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 No rashes or lesions. Head: Normocephalic, atraumatic. EENT: Hearing is intact b/l. Conjunctiva clear. PERRLA. EOM intact. Moist mucous membranes.? Cardiac: Chest wall symmetric. RRR Lungs: Normal respiratory effort without accessory muscle use? Ext: +left knee without noted swelling or erythema. ttp along anteriolateral aspect of left knee without palpable deformity/ step off. can flex/ extend the knee w/ minimal pain. difficulty bearing weight on LLE d/t pain. 2+dp/pt pulse intact. Neuro: AOx3. Normal speech. sensation intact. Psych: Appropriate mood and affect. Responds appropriately to questions. Course Course Course Narrative: RME, this is a rapid medical exam performed by Drew Red please refer to primary provider for complete H&P- 63 old female presents for evaluation of left lateral knee pain. She reports a previous tibial plateau fracture. She reports she was at physical therapy today when her left knee gave out. She denies falling on the leg. She is able to flex and extend the knee but has pain/tenderness to the left lateral knee. No obvious deformity. Plan for x-ray Reevaluation(s) Reevaluation #1: XR left knee does not demonstrate acute fracture. CT left knee shows healing tibial plateau fracture, no acute fracture/ dislocation/ effusion. Patient received IV toradol w/ improvement in pain Given SITA, it is possible she has an underlying ligament/ tendon injury. I recommended placing patient in knee immobilizer with crutches. She politely declines. She will be contacting ortho (dr. montes de oca's office) tomorrow morning for follow up. She is declining any narcotic pain medication at this time. Naproxen sent to pharmacy. Her family member at bedside will be assisting her to the car via wheelchair. Patient has remained stable throughout ED visit today. Discussed worrisome signs and symptoms and when to return to the ED. All questions answered at this time. Patient is agreeable with disposition and stable for discharge. Medications Administered Discontinued Medications Generic Name Dose Route Start Last Admin Trade Name Freq PRN Reason Stop Dose Admin Ketorolac Tromethamine 15 mg 05/29/24 16:05 05/29/24 16:22 Ketorolac Tromethamine 15 Mg/Ml Vial IVPUSH 05/29/24 16:06 15 mg ONCE ONE Administration Medical Decision Making Medical Decision Making [facility] Narrative: 63 year old female with pmhx significant for neuropathy, asthma, diverticulosis, renal stones, celiac sprue, chronic knee pain presents to the ED today for evaluation of acute on chronic left knee pain. patient is hypertensive and tachycardic, likely secondary to pain. vitals are otherwise wnl. exam significant for left knee without noted swelling or erythema. ttp along anteriolateral aspect of left knee without palpable deformity/ step off. can flex/ extend the knee w/ minimal pain. difficulty bearing weight on LLE d/t pain. 2+dp/pt pulse intact. Differential diagnosis includes ligament/tendon injury, fracture, dislocation, arthritis. unlikely DVT, bakers cyst, nv compromise, threat to limb. Plan for imaging, pain control, and re-evaluation. Differential Diagnosis Differential Diagnoses: The differential diagnosis associated with the presentation includes as above Admission/Observation not indicated Independent Interpretation I performed an independent interpretation of an: Plain X-Ray and CT Scan Interpretation: XR left knee without acute fracture CT left knee without acute fracture Radiology Impression Discussion of test interpretation with radiology: I have reviewed the radiologist's reading. Radiologist Impression: EXAMINATION: XR KNEE, LEFT CLINICAL INFORMATION: pain COMPARISON: None available. TECHNIQUE: Four views of the left knee. FINDINGS: There is diffuse osteopenia. No visible acute fracture, dislocation or subluxation seen. There is no abnormal joint effusion or loose bodies. XR/XR knee LT 3V IMPRESSION: No acute fracture or dislocation. Diffuse osteopenia. Electronically signed by: Juan Caban MD 05/29/2024 04:57 PM EST RP Date of Service: 05/29/24 Procedure(s): CT knee LT wo IV con Accession Number(s): [id number] cc: Millicent Chapa MD; Joni Red Report Number: [id number]: Total DLP = 174.00 mGy-cm CLINICAL HISTORY: pain CT LEFT KNEE WITHOUT CONTRAST Comparison: CR/SR - XR KNEE LT 3V - 05/29/24 15:[address]/AR/SR - CT KNEE LT WO IV CON - 03/07/24 19:[address]/AR/SR - CT KNEE LT WO IV CON - 01/28/24 20:23 EDT Findings: Previous thin curvilinear sclerotic density in the lateral tibial plateau is not appreciated at this time. Stable mild depression of the articulating surface. No new fracture. No dislocation. No joint effusion. Marked diffuse bony demineralization. Mild tricompartmental joint space narrowing. Impression: 1. Near-complete healing of prior lateral tibial plateau fracture. No new or interval fracture. This document has been electronically signed by: Cindy Grayson DO on 05/29/2024 17:21:03 Independent Historian Clinical information obtained from an independent historian. History obtained from or confirmed by: Spouse External Record Review External record reviewed: Inpatient record, Office record, Outpatient record, Prior outpatient labs, Prior outpatient radiology, Primary care record and Outside ED record Prescription Management I considered prescription management with: Pain Medication Chronic Conditions Patient?s care impacted by: Other (OA) Social Determinants Patient?s care significantly limited by Social Determinants of Health including: Other Social Determinant of Health Critical Care Time Critical Care Time Critical Care Time: No Discharge Plan Discharge Clinical Impression: Left knee sprain Patient Disposition: Home, Self-Care Instructions: Knee Sprain (ED), Crutch Instructions (ED) Additional Instructions: You were evaluated in the ED today for left knee pain. Your x-ray does not show fracture. It does show diffuse osteopenia within the knee itself. Your CT scan shows near complete healing of prior tibial plateau fracture without new fracture, dislocation, or significant joint swelling. You were offered knee immobilizer + crutches today however decline at this time. RICE therapy - rest, ice, compress, elevate the knee Call Dr. Montes De Oca's office tomorrow morning for follow up. Continue taking Tylenol every 4-6 hours at home. I have also sent naproxen to your pharmacy for you to take twice daily for pain in place of ibuprofen. Return with new or worsening symptoms. In the case of an emergency call 911. Prescriptions: New naproxen 500 mg tablet 500 mg PO Q12H PRN (Reason: pain (scale score 1-3)) Qty: 20 0RF No Action ondansetron 4 mg tablet,disintegrating 4 mg PO Q8H PRN (Reason: nausea and vomiting) Qty: 7 0RF docusate sodium 100 mg Capsule 100 mg PO BID Qty: 0 0RF ibuprofen 100 mg/5 mL Suspension 600 mg PO Q6H PRN (Reason: mild to moderate pain) Qty: 0 0RF acetaminophen 650 mg/20.3 mL Solution 650 mg PO Q4H PRN (Reason: moderate pain) Qty: 0 0RF polyethylene glycol 3350 17 gram Powder In Packet 17 g PO DAILY PRN (Reason: constipation) Qty: 0 0RF magnesium hydroxide [Milk of Magnesia] 400 mg/5 mL Suspension 30 ml PO DAILY PRN (Reason: Constipation) Qty: 0 0RF lorazepam [Ativan] 0.5 mg tablet 0.5 mg PO TID PRN (Reason: anxiety) Qty: 7 0RF sucralfate [Carafate] 100 mg/mL suspension 10 ml PO QID PRN (Reason: reflux) Qty: 300 0RF Rx Instructions: swish in mouth and swallow; use after food/drink meloxicam 15 mg tablet 15 mg PO DAILY PRN (Reason: pain) Qty: 10 0RF albuterol sulfate 90 mcg/actuation HFA aerosol inhaler 2 puff inhalation Q4-6H PRN (Reason: SOB/Wheezing) hydromorphone 2 mg tablet 2 mg PO DAILY PRN (Reason: moderate to severe pain) Qty: 30 0RF Rx Instructions: Partial Fill upon patient request. pregabalin [Lyrica] 25 mg capsule 25 mg PO BEDTIME Qty: 30 2RF Referrals: [facility] [place] Orthopedic Surgeons [Provider Group] Millicent Chapa MD [Primary Care Provider] - Interventions: ED Discharge Assessment Last Done: 05/29/24 18:14 Discharge Date/Time: 05/29/24 18:15 Print Language: Sami
[2024-05-29] MEDS: Ketorolac Tromethamine 15 MG/ML VIAL IVPUSH (16:22)
--- NOTE | 2024-05-29 17:58 | MHC.EDTECH ---
Pt/spouse declined crutches due to Pt having some at home and also declined knee immobilizer, stating we don't need it, we will just wait to see what Dr Montes De Oca says tomorrow. PA aware
[2024-05-29 18:14] VITALS: BP 147/69; PULSE 102; RESP 20; TEMP 37; O2SAT 98
== END 2024-05-29 18:15 | disposition home or self-care (01) ==
PROVIDERS: Emergency Provider Emergency Medicine; PCP Internal Medicine
DX: S83.92XA Sprain of unspecified site of left knee, initial encounter (principal); X58.XXXA Exposure to other specified factors, initial encounter; Y93.9 Activity, unspecified; Y92.9 Unspecified place or not applicable; Y99.9 Unspecified external cause status; M25.562 Pain in left knee
CPT/HCPCS: 73562; 73700; 96374; 99283; 99284; J1885

== ENCOUNTER → 2024-05-29 14:26 | Outpatient (BNV) | payer BC, SELFPAY | PROVIDERS: Emergency Provider Emergency Medicine; PCP Internal Medicine; Visit Provider Radiology Diagnostic Radiology | DX: M25.562 Pain in left knee (principal) | CPT/HCPCS: 73562; 73700 ==

== ENCOUNTER 2024-06-02 19:40 | Outpatient (REF) | payer BC, SELFPAY ==
--- NOTE | ~2024-06-02 | MR_ITS ---
CLINICAL HISTORY: <OBR.31.1><OBR.31.1.1>M23.92 - Unspecified internal derangement of left knee Pain </OBR.31.1.1><OBR.31.1.2> intermittent numbness radiating through lower left extremity. Instability o n left knee with reduced range of motion.</OBR.31.1.2></OBR.31.1> MR left knee without gadolinium Comparison: CT/SR - CT KNEE LT WO IV CON - 05/29/24 16:44 EST Findings: Bone marrow edema in the lateral tibial plateau with a corresponding T1 hypointense line. This likely represents a stress fracture. No joint effusion. Anterior and posterior cruciate ligaments are intact. Collateral ligaments are intact. No disruption of the patellar retinacula or iliotibial band. No tears of the quadriceps, patellar, popliteus, or flexor tendons. Horizontal tear in through the lateral meniscus extending into the posterior horn. Normal medial meniscus. IMPRESSION: 1. Horizontal tear in the lateral meniscus. 2. Findings in the lateral tibial plateau likely represent a mild stress fracture. This document has been electronically signed by: Garcia La MD on 06/02/2024 21:29:40
== END 2024-06-02 19:41 | disposition home or self-care (01) ==
LOC: HO.MRI 19:40
PROVIDERS: PCP Internal Medicine; Visit Provider Physician Assistant
DX: M23.92 Unspecified internal derangement of left knee (principal)
CPT/HCPCS: 73721

== ENCOUNTER → 2024-06-02 19:42 | Outpatient (BNV) | payer BC, SELFPAY | PROVIDERS: PCP Internal Medicine; Visit Provider Student in an Organized Health Care Education/Training Program | DX: M23.92 Unspecified internal derangement of left knee (principal) | CPT/HCPCS: 73721 ==

== ENCOUNTER 2024-06-16 14:13 | Outpatient (REF) | payer BC, SELFPAY ==
[2024-06-16 14:35] LABS: MANUAL DIFF FLAG NO
[2024-06-16 14:52] LABS: Basophils Absolute Auto 0.1 X10*3/uL (0.0-0.2); Basophils Percent Auto 1.1 % (0-2); Eosinophils Absolute Auto 0.2 X10*3/uL (0.0-0.4); Eosinophils Percent Auto 5.3 % (0-4); Hematocrit 34.2 % (37.0-47.0); Hemoglobin 10.8 g/dl (12.0-16.0); Lymphocytes Absolute Auto 1.1 X10*3/uL (1.2-4.9); Lymphocytes Percent Auto 23.7 % (20-40); Mean Corpuscular HGB Conc 31.6 g/dl (31.0-35.0); Mean Corpuscular Hemoglobin 29.3 pg (27.0-33.0); Mean Corpuscular Volume 92.9 fL (80.0-98.0); Mean Platelet Volume 10.4 fL (9.4-12.3); Monocytes Absolute Auto 0.4 X10*3/uL (0.1-1.2); Monocytes Percent Auto 8.2 % (2-11); Neutrophils Absolute Auto 2.8 x10*3/uL (2.0-8.3); Neutrophils Percent Auto 61.7 % (45-73); Platelet Count 290 X10*3/uL (160-400); Red Blood Count 3.68 X10*6/uL (4.20-5.50); Red Cell Distribution Width 12.9 % (11.0-16.0); White Blood Count 4.5 X10*3/uL (4.8-10.8)
[2024-06-16 15:17] LABS: Rheumatoid Factor 21.3 IU/mL (<15.0)
[2024-06-16 15:24] LABS: Alanine Aminotransferase 10 U/L (0-31); Albumin Level 4.2 g/dL (3.5-5.0); Anion Gap 14 (12-20); Aspartate Amino Transferase 22 U/L (5-31); Bilirubin Direct < 0.2 mg/dL (0.0-0.5); Bilirubin Total 0.2 mg/dL (0.0-1.0); Blood Urea Nitrogen 26 mg/dL (9-16); C Reactive Protein 0.43 mg/dL (< or = 0.50); Calcium 9.4 mg/dL (8.4-10.2); Carbon Dioxide 27 mmol/L (22-29); Chloride 106 mmol/L (96-108); Estimated Glomerular Filt Rate > 60; Glucose Random 90 mg/dL (60-115); Iron 44 mcg/dL (30-160); Percent Iron Saturation 13 % (15-50); Sodium 143 mmol/L (135-145); Total Iron Binding Capacity 340 mcg/dL (228-428); Total Protein 7.3 g/dL (6.5-8.0); Unsaturated Iron Binding 296 ug/dL
[2024-06-16 15:29] LABS: Erythrocyte Sedimentation Rate 34 MM/HR (0-20)
[2024-06-16 15:34] LABS: Alkaline Phosphatase 65 U/L (39-117)
[2024-06-16 15:40] LABS: Ferritin 38 ng/mL (10-250); T4 Thyroxine 8.4 ug/dL (4.5-12.0); Thyroid Stimulating Hormone 1.46 uIU/mL (0.32-4.0); Vitamin D 25-OH Total 75.8 ng/mL (>30)
[2024-06-16 15:47] LABS: Folate 7.7 ng/mL (> or = 4.0); Vitamin B12 405 pg/mL (200-900)
[2024-06-19 12:33] LABS: Immunoglobulin A 120 mg/dL (70-320)
[2024-06-19 23:18] LABS: Gliadin Deamidated IgA Ab 2.2 U/mL; Gliadin Deamidated IgG Ab <1.0 U/mL; Myeloperoxidase Antibody <1.0 AI; Proteinase 3 PR3 Antibodies <1.0 AI; Transglutaminase Ab IgG <1.0 U/mL; Transglutaminase IgA <1.0 U/mL
[2024-06-20 13:39] LABS: Anti Nuclear Antibody Screen NEGATIVE (NEGATIVE)
[2024-06-23 00:14] LABS: Endomysial IgA Antibody Negative (Negative)
== END 2024-06-16 14:14 | disposition home or self-care (01) ==
LOC: HO.LAB 14:13
PROVIDERS: PCP Internal Medicine; Visit Provider Internal Medicine
DX: R53.83 Other fatigue (principal); R63.0 Anorexia; R60.0 Localized edema; M79.10 Myalgia, unspecified site
CPT/HCPCS: 36415; 80048; 80076; 82306; 82607; 82728; 82746; 82784; 83540; 84436; 84443; 85025; 85652; 86021; 86038; 86140; 86231; 86258; 86364; 86431

== ENCOUNTER 2024-06-16 14:45 | Outpatient (AMB) | payer BC, SELFPAY ==
--- NOTE | 2024-06-16 15:18 | MHC.OFFVIS ---
Vital Signs 06/16/24 15:28 Height 5 ft 1 in BMI Reason not done Patient refused/unable BP 100/60 Blood Pressure Location Rt brachial Position Sitting Respiration 16 Pulse 57 Pulse Source Pulse Oximeter Pulse Oximetry (%) 99 Oxygen Delivery Method Room Air Intake Visit Reasons: Leg pain (MD Franks' ) Intake Note: Patient presents for leg pain. Allergies gluten [Gluten] Allergy (Severe, Verified 06/16/24 15:24) PT HAS CELIAC DISEASE Sulfa (Sulfonamide Antibiotics) Allergy (Severe, Verified 06/16/24 15:24) LUPUS-LIKE benztropine [Cogentin] Allergy (Intermediate, Verified 06/16/24 15:24) Rash ciprofloxacin [From Cipro] Allergy (Intermediate, Verified 06/16/24 15:24) TENDONOPATHY/NEUROPATHY shellfish derived Allergy (Intermediate, Verified 06/16/24 15:24) Hives promethazine Allergy (Unknown, Verified 06/16/24 15:24) Unknown nitrofurantoin [From Macrodantin] Adverse Reaction (Severe, Verified 06/16/24 15:24) Drug induced Hep Mandelamine Allergy (Intermediate, Uncoded 05/29/24 14:26) Drug induced Hep QUINOLONES Allergy (Intermediate, Uncoded 05/29/24 14:26) Unknown Medication List - Last Reconciled 06/16/24 by Jennifer Burgess MD acetaminophen 650 mg (20.3 mL) PO Q4H PRN albuterol sulfate 90 mcg/actuation 2 puffs inhalation Q4-6H PRN docusate sodium 100 mg PO BID lorazepam (Ativan) 0.5 mg PO TID PRN magnesium hydroxide (Milk of Magnesia) 30 mL PO DAILY PRN ondansetron 4 mg PO Q8H PRN polyethylene glycol 3350 17 grams PO DAILY PRN pregabalin (Lyrica) 25 mg PO BEDTIME sucralfate (Carafate) 10 mL PO QID PRN HPI Comments Details: Patient is a 63-year-old female with peripheral neuropathy, Raynaud's disease, mood disorder and polyarthralgias in the setting of a positive rheumatoid factor who is here today for follow up Interval History: Patient last seen 10/05/[address] Isak Sanchez. At that time she was complaining of bilateral knee pain, occasional thumb CMC and PIP finger joint pain. Her evaluation at that time did not show any signs of any active inflammatory disease. Despite having a positive low titer rheumatoid factor. Since last visit patient was admitted to the hospital 01/28/2024-02/01/2024 after a mechanical fall at home. She complained of left knee pain and was found to have a left nondisplaced tibial plateau fracture on outpatient MRI. Seen by ortho and conservative management with physical therapy and nonweightbearing status was recommended. Since that time she has been having issues with left knee pain requiring Dilaudid. She re-presented to the ER 03/07/2024 with worsening left knee pain and had a left knee CT and left lower leg ultrasound that was done. The CT scan did not reveal any acute injury other than what was known from prior studies and there was no evidence of DVT. Followed up with orthopedic last appointment 05/15/2024 Now complains of worsening fatigue, worsening dyspnea on exertion. Increased stiffness in her bilateral shoulder, bilateral knees. Left lateral ankle pain and swelling. Past 7-10 days chills, general malaise, increasing joint pain especially tendon insertions Weaned her dilaudid about 1 month ago. 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 Rheumatologic History: Patient has been seeing Rheumatology for several years. Does not have a formal diagnosis of autoimmune connective tissue disease or autoinflammatory disease however has had several encounters due to positive rheumatoid factor and joint pain. When she [address]st saw Dr. Isak Sanchez as a new patient March 2022 she was complaining of bilateral knee pain. There was no evidence of inflammatory disease at that time. She did reports a history of hematuria which responded to prednisone but her CT of the abdomen showed a nonobstructive stone which was attributed to her hematuria. Plan at that time was to monitor off prednisolone and continue physical therapy for her knees. She followed up in May of 2022. Her C-reactive protein was normal as well as her ESR. Her rheumatoid factor was mildly elevated at 25 but her CCP was negative. She did not have any signs of inflammatory arthritis and the decision made to not pursue treatment at that time. Her next follow up was in September of 2022 and at that time she reported additional joints occasionally in her thumb CMC joints and her finger PIP joints without any associated swelling. She also complained of upper, lower back pain and lateral hip pain. She was concern that she may have an autoimmune disorder especially stating she gets extreme fatigue. At that time again there was no evidence of inflammatory arthritis and her joint complaints were attributed to polyarticular osteoarthritis. Current Rheumatology Medication(s): [facility] Medical History (Updated 06/19/24 @ 08:20 by Jennifer Burgess MD) Long-term use of Plaquenil Undifferentiated connective tissue disease Rheumatoid factor positive Post-COVID chronic cough Neuropathy Asthma Diverticulosis Kidney stone Celiac sprue Surgical History H/O cystoscopy S/P cardiac cath (~07/2020) Hx of excision of mass (~1999) Family History Mother Cervical cancer Uterine cancer History of thyroid disorder Maternal Grandmother Diabetes Stroke Maternal Grandfather Diabetes Coronary artery disease Paternal Grandmother Uterine cancer Diabetes Stroke Paternal Grandfather Stroke Father Bladder cancer Social History Household Members: Spouse Household Members Other:: Son Alcohol intake: current Alcohol intake frequency: holidays/special occasions only Patient Tobacco Use Status: Never used Tobacco Advance Directives Date on File: 04/27/22 service: No 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 Well appearing and in no apparent painful distress HEENT Conjunctiva and sclera clear. ?Pupils equal round and reactive to light. ?No lymphadenopathy. ? CHEST/RESPIRATORY SYSTEM Normal respiratory effort and able to speak in complete sentences. ?Clear to auscultation bilaterally. ?No crackles, rales, rhonchi, wheezes heard. CARDIAC SYSTEM Regular rate and rhythm. ?S1 and S2 heard no murmurs. ?Radial pulses intact bilaterally MSK Hands: ?Good scrap picker strength bilaterally. No deformities noted. ?No synovitis noted to the MCPs, PIPs or DIPs. ?No tenderness to palpation of these joints. Wrists: ?Full range of motion at the wrists without pain. ?No tenderness to palpation or synovitis noted to the wrists. Elbows: Full range of motion without pain. No tenderness, weakness, swelling, increased warmth or erythema. Shoulders: Full range of motion without pain. No tenderness, weakness, swelling, increased warmth or erythema. Hips: Full range of motion without pain. Hip bursa: No tenderness to palpation Knees: ?Kinesiology tape on both knees. No warmth appreciated to bilateral knees. Full range of motion though painful. No obvious swelling to either knee. Tenderness to palpation of the medial aspect over the pes anserine bursa. Ankles: Full range of motion. ?Trace lower extremity swelling. Feet: ?Negative squeeze test. ?No tenderness to palpation or swelling of the MTPs. Tender points:?No tenderness to palpation of the bilateral trapezius, supraspinatus, greater trochanters, anterior costochondral junctions, bilateral gluteal areas, bilateral suboccipital muscle insertions SKIN Skin intact without rashes. Normal nail fold capillaries No bald spots noted on examination of scalp Results Reviewed Results Reviewed: Laboratory Tests 06/16/24 14:34 WBC 4.5 L RBC 3.68 L Hgb 10.8 L Hct 34.2 L Plt Count 290 D ESR 34 H Sodium 143 Potassium 4.0 Chloride 106 Carbon Dioxide 27 BUN 26 H Creatinine 0.62 AST 22 ALT 10 Alkaline Phosphatase 65 C-Reactive Protein 0.43 Total Protein 7.3 25-OH Vitamin D Total 75.8 Rheumatoid Factor 21.3 H Knee MRI 05/2024 Findings: Bone marrow edema in the lateral tibial plateau with a corresponding T1 hypointense line. This likely represents a stress fracture. No joint effusion. Anterior and posterior cruciate ligaments are intact. Collateral ligaments are intact. No disruption of the patellar retinacula or iliotibial band. No tears of the quadriceps, patellar, popliteus, or flexor tendons. Horizontal tear in through the lateral meniscus extending into the posterior horn. Normal medial meniscus. Knee CT 04/2024 Findings: Previous thin curvilinear sclerotic density in the lateral tibial plateau is not appreciated at this time. Stable mild depression of the articulating surface. No new fracture. No dislocation. No joint effusion. Marked diffuse bony demineralization. Mild tricompartmental joint space narrowing. Assessment & Plan Assessment & Plan (1) Undifferentiated connective tissue disease: Code(s): M35.9 - Systemic involvement of connective tissue, unspecified Category: Medical Plan: #Undifferentiated Connective Tissue Disease Patient at this time does not really meet criteria for any autoimmune connective tissue disease however she does have symptoms that could be related to an underlying connective tissue disease such as her photosensitivity, Raynaud's, sicca symptoms, history of 2nd trimester loss requiring aspirin for subsequent pregnancies and her worsening fatigue. I do not see any signs of inflammatory arthritis that would warrant a course of prednisone at this time. We will trial her on Plaquenil and see if this helps with her underlying joint stiffness and fatigue. I do think her joint issues are complicated by her recent tibial plateau fracture that was then further complicated by her aggravation of the injury in April. I explained to the patient that the Plaquenil is not going to help with the pain related to her mechanical issues. We will give her Celebrex as an anti-inflammatory to see if this will help with her joint pains so that she can continue with physical therapy. Plan - Plaquenil 200mg daily (weight based) - Celebrex 200mg bid - UA, UPC, APS panel, HLA B27, AIDEN, dsDNA, MATTHEW, C3, c4, SSA/SSB, Scleroderma - RTC 4 months (2) Long-term use of Plaquenil: Code(s): Z79.899 - Other director long term care (current) drug therapy Category: Medical Plan: #Long-term Use of Hydroxychloroquine Discussed with patient the risks and benefits of hydroxychloroquine in managing the rheumatic condition Benefits include: - Reduced pain, reduce mortality, maintenance of remission and reduction of flares Risks include: - GI upset, skin hyperpigmentation, retinal toxicity (especially after more than 5 years of use), myopathy Advised yearly ophthalmology visits Plan I spent 45 minutes reviewing the record and labs, taking a history, examining the patient, discussing the treatment plan, answering questions from patient and her who is a physician, and documenting in the medical record Orders: Orders Beta-2 Glycoprotein Antibody 06/16/24 M35.9 - Systemic involvement of connective tissue, unspecified Complement C3 06/16/24 M35.9 - Systemic involvement of connective tissue, unspecified Sjogren's Antibodies 06/16/24 M35.9 - Systemic involvement of connective tissue, unspecified UA w Microscopic 06/16/24 M35.9 - Systemic involvement of connective tissue, unspecified DNA Double Stranded-Crithidia 06/16/24 M35.9 - Systemic involvement of connective tissue, unspecified Scleroderma 12 Panel 06/16/24 M35.9 - Systemic involvement of connective tissue, unspecified Cardiolipin Antibodies 06/16/24 M35.9 - Systemic involvement of connective tissue, unspecified Lupus Anticoagulant Panel 06/16/24 M35.9 - Systemic involvement of connective tissue, unspecified Anti Extractable Nuclear Ag 06/16/24 M35.9 - Systemic involvement of connective tissue, unspecified Anti DNA DS Antibody 06/16/24 M35.9 - Systemic involvement of connective tissue, unspecified Complement C4 06/16/24 M35.9 - Systemic involvement of connective tissue, unspecified Protein Creatinine Ratio, Ur 06/16/24 M35.9 - Systemic involvement of connective tissue, unspecified HLA B27 06/16/24 M35.9 - Systemic involvement of connective tissue, unspecified Medications: New hydroxychloroquine (Plaquenil) 200 mg PO DAILY 90 tabs 1RF M35.9 - Systemic involvement of connective tissue, unspecified celecoxib (Celebrex) 200 mg PO BID 180 caps 1RF 90 days M35.9 - Systemic involvement of connective tissue, unspecified Discontinued meloxicam Discontinued Reason: Doctor's Order 15 mg PO DAILY PRN 10 tabs 0RF pain naproxen Discontinued Reason: Doctor's Order 500 mg PO Q12H PRN 20 tabs 0RF pain (scale score 1-3) hydromorphone Partial Fill upon patient request. Discontinued Reason: Doctor's Order 2 mg PO DAILY PRN 30 tabs 0RF moderate to severe pain pregabalin (Lyrica) Discontinued Reason: Doctor's Order 25 mg PO BEDTIME 30 caps 2RF Coding Level of Care Code Est Pt Level 5 (61968) Diagnoses Undifferentiated connective tissue disease M35.9 Long-term use of Plaquenil Z79.899
[2024-06-16 15:28] VITALS: BP 100/60; PULSE 57; RESP 16; O2SAT 99
== END 2024-06-16 16:34 | disposition home or self-care (01) ==
LOC: HO.RHE 14:45
PROVIDERS: PCP Internal Medicine; Visit Provider Student in an Organized Health Care Education/Training Program
DX: M35.89 Other specified systemic involvement of connective tissue (principal); Z79.899 Other long term (current) drug therapy
CPT/HCPCS: 99215

== ENCOUNTER 2024-06-22 14:40 | Emergency (ER) | payer BC, SELFPAY ==
--- NOTE | ~2024-06-22 | XR_ITS ---
EXAMINATION: XR CHEST CLINICAL INFORMATION: shortness of breath COMPARISON: Chest 07/30/2023 TECHNIQUE: 2 views of the chest were obtained. FINDINGS: The lungs are hyperinflated but clear of acute pneumonic process. The heart size and pulmonary vascularity is normal. No gross bony abnormality seen. XR/XR chest 2V IMPRESSION: Hyperinflated lungs likely emphysema. No acute process seen. Electronically signed by: Juan Caban MD 06/22/2024 05:09 PM ERASMO
--- NOTE | ~2024-06-22 | US_ITS ---
EXAMINATION: US TRIPLEX LOWER EXTREMITY, BILATERAL CLINICAL INFORMATION: Pain and swelling COMPARISON: Ultrasound venous duplex left leg 03/07/2024 TECHNIQUE: Color-flow triplex imaging with spectral analysis and compression Doppler were performed on the bilateral lower extremities. FINDINGS: Respiratory variation, normal compression and augmented flow are noted throughout the bilateral lower extremities. The visualized common femoral vein, superficial femoral vein, profunda femoral vein, popliteal vein and midcalf peroneal and posterior tibial venous segments show no evidence of deep venous thrombosis bilaterally. There is no Lyons's cyst. US/US venous duplex LE BI IMPRESSION: No evidence of deep venous thrombosis involving the bilateral lower extremities. Electronically signed by: Juan Caban MD 06/22/2024 04:32 PM EST
[2024-06-22 15:25] VITALS: BP 144/76; PULSE 85; RESP 16; TEMP 36.7; O2SAT 98; BMI 23.9
--- NOTE | 2024-06-22 15:31 | ED_ITS ---
HPI - General Adult General Chief complaint: General Medical Stated complaint: fluid in lungs and legs swelling Time Seen by Provider: 06/22/24 18:24 Related Data Home Medications ?Medication ?Instructions ?Recorded ?Confirmed albuterol sulfate 90 mcg/actuation 2 puff inhalation Q4-6H PRN 04/07/22 06/16/24 aerosol inhaler SOB/Wheezing Previous Rx's ?Medication ?Instructions ?Recorded ondansetron 4 mg disintegrating 4 mg PO Q8H PRN nausea and 04/25/22 tablet vomiting #7 tabs acetaminophen 650 mg/20.3 mL oral 650 mg (20.3 mL) PO Q4H PRN 02/01/24 solution moderate pain #0 mL docusate sodium 100 mg capsule 100 mg PO BID #0 caps 02/01/24 lorazepam 0.5 mg tablet (Ativan) 0.5 mg PO TID PRN anxiety #7 tabs 02/01/24 polyethylene glycol 3350 17 gram 17 g PO DAILY PRN constipation #0 02/01/24 oral powder packet ea celecoxib 200 mg capsule (Celebrex) 200 mg PO BID 90 days #180 caps 06/16/24 hydroxychloroquine 200 mg tablet 200 mg PO DAILY #90 tabs 06/16/24 (Plaquenil) Allergies Allergy/AdvReac Type Severity Reaction Status Date / Time gluten [Gluten] Allergy Severe PT HAS Verified 06/22/24 15:25 CELIAC DISEASE Sulfa (Sulfonamide Allergy Severe LUPUS-LIKE Verified 06/22/24 15:25 Antibiotics) benztropine [Cogentin] Allergy Intermediate Rash Verified 06/22/24 15:25 ciprofloxacin [From Cipro] Allergy Intermediate TENDONOPATH Verified 06/22/24 15:25 Y/NEUROPATH Y shellfish derived Allergy Intermediate Hives Verified 06/22/24 15:25 promethazine Allergy Unknown Unknown Verified 06/22/24 15:25 nitrofurantoin AdvReac Severe Drug Verified 06/22/24 15:25 [From Macrodantin] induced Hep Mandelamine Allergy Intermediate Drug Uncoded 05/29/24 14:26 induced Hep QUINOLONES Allergy Intermediate Unknown Uncoded 05/29/24 14:26 PMFSH Past Medical History Medical History Long-term use of Plaquenil Undifferentiated connective tissue disease Rheumatoid factor positive Post-COVID chronic cough Neuropathy Asthma Diverticulosis Kidney stone Celiac sprue Surgical History H/O cystoscopy S/P cardiac cath (~07/2020) Hx of excision of mass (~1999) Family History Family History Mother Cervical cancer Uterine cancer History of thyroid disorder Maternal Grandmother Diabetes Stroke Maternal Grandfather Diabetes Coronary artery disease Paternal Grandmother Uterine cancer Diabetes Stroke Paternal Grandfather Stroke Father Bladder cancer Social History Social History Household Members: Spouse Household Members Other:: Son Alcohol intake: current Alcohol intake frequency: holidays/special occasions only Patient Tobacco Use Status: Never used Tobacco Smoked in Last 30 Days: No Use of substances other than those prescribed or required for medical reasons: No Advance Directives: Yes Advance Directives on File: Yes Advance Directives Date on File: 04/27/22 Do you have a plan to hurt others: No Plan service: No 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[employer] Physical 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 ED Vital Signs: Vital Signs - 24 hr 06/22/24 15:25 06/22/24 19:03 06/22/24 20:07 Temperature 98.0 F 98 F Pulse Rate 85 66 77 Respiratory Rate 16 20 16 Blood Pressure 144/76 H 125/69 125/72 Pulse Oximetry 98 99 Oxygen Delivery Method Room Air Room Air 06/22/24 20:25 Temperature 98.6 F Pulse Rate 69 Respiratory Rate 16 Blood Pressure 121/63 Pulse Oximetry 98 Oxygen Delivery Method Room Air BMI result Body Mass Index 23.9 Course Course Course Narrative: RME, this is a rapid medical exam performed by Drew Red please refer to primary provider for complete H&P- 63-year-old female with complex past medical history including undifferentiated connective tissue disease, rheumatoid factor positive, Raynaud's disease, varicose veins osteoarthritis presents for evaluation of multiple complaints including shortness of breath leg swelling. Plan for cardiac workup, chest x-ray, lower extremity ultrasounds to evaluate for DVT Medications Administered Discontinued Medications Generic Name Dose Route Start Last Admin Trade Name Freq PRN Reason Stop Dose Admin Hydromorphone HCl 0.25 mg 06/22/24 19:49 06/22/24 20:08 Hydromorphone Hcl 0.5 Mg/0.5 Ml Syringe IVPUSH 06/22/24 19:50 0.25 mg ONCE ONE Administration Protocol Ketorolac Tromethamine 15 mg 06/22/24 18:48 06/22/24 19:02 Ketorolac Tromethamine 15 Mg/Ml Vial IVPUSH 06/22/24 18:49 15 mg ONCE ONE Administration Lorazepam 0.5 mg 06/22/24 19:49 06/22/24 20:08 Lorazepam 2 Mg/Ml Vial IVPUSH 06/22/24 19:50 0.5 mg ONCE ONE Administration Ondansetron HCl 4 mg 06/22/24 20:05 06/22/24 20:08 Ondansetron Hcl 4 Mg/2 Ml Vial IVPUSH 06/22/24 20:06 4 mg ONCE ONE Administration Medical Decision Making Lab Data 06/22/24 15:47 06/22/24 15:47 Labs: Lab Results 06/22/24 Range/Units 15:47 WBC 4.6 L (4.8-10.8) X10*3/uL RBC 3.59 L (4.20-5.50) X10*6/uL Hgb 10.7 L (12.0-16.0) g/dl Hct 33.5 L (37.0-47.0) % MCV 93.3 (80.0-98.0) fL MCH 29.8 (27.0-33.0) pg MCHC 31.9 (31.0-35.0) g/dl RDW 12.8 (11.0-16.0) % Plt Count 245 (160-400) X10*3/uL MPV 10.1 (9.4-12.3) fL Immature Gran % (Auto) 0.2 (0.0-0.4) % Neut % (Auto) 60.7 (45-73) % Lymph % (Auto) 24.0 (20-40) % [place] % (Auto) 9.3 (2-11) % Eos % (Auto) 5.2 H (0-4) % Baso % (Auto) 0.6 (0-2) % Lymph # (Auto) 1.1 L (1.2-4.9) X10*3/uL [place] # (Auto) 0.4 (0.1-1.2) X10*3/uL Eos # (Auto) 0.2 (0.0-0.4) X10*3/uL Baso # (Auto) 0.0 (0.0-0.2) X10*3/uL Abs Immat Gran (auto) 0.01 (0.00-0.03) X10*3/uL Absolute Neuts (auto) 2.8 (2.0-8.3) x10*3/uL Absolute Nucleated RBC 0.000 (0.0-0.012) X10*3/uL Nucleated RBC % (auto) 0.0 (0.0-0.2) /100WBC PT 10.9 (10.9-12.4) SEC INR 0.9 (0.9-1.1) D-Dimer High Sensitivty < 150 NG/ML Sodium 143 (135-145) mmol/L Potassium 4.0 (3.3-5.1) mmol/L Chloride 110 H (96-108) mmol/L Carbon Dioxide 28 (22-29) mmol/L Anion Gap 9 L (12-20) BUN 27 H (9-16) mg/dL Creatinine 0.65 (0.5-1.4) mg/dL Estim Creat Clear Calc 72.3 Estimated GFR > 60 Random Glucose 91 (60-115) mg/dL Calcium 9.3 (8.4-10.2) mg/dL Magnesium 2.3 (1.6-2.6) mg/dL Total Bilirubin 0.3 (0.0-1.0) mg/dL AST 19 (5-31) U/L ALT 14 (0-31) U/L Alkaline Phosphatase 57 (39-117) U/L Troponin I High Sens < 2.7 (<3.5-17.0) ng/L B-Natriuretic Peptide 12 (<100) pg/mL Total Protein 7.0 (6.5-8.0) g/dL Albumin 4.2 (3.5-5.0) g/dL Lipase 16 (8-78) U/L Influenza Type A (PCR) NEGATIVE (Negative) Influenza Type B (PCR) NEGATIVE (Negative) RSV RNA Qual (PCR) NEGATIVE (Negative) SARS-CoV-2 RNA (RT-PCR) NEGATIVE (Negative) Discharge Plan Discharge Clinical Impression: Stiffness of left knee, Knee pain, bilateral Patient Disposition: Home, Self-Care Instructions: Knee Pain (ED) Prescriptions: No Action ondansetron 4 mg tablet,disintegrating 4 mg PO Q8H PRN (Reason: nausea and vomiting) Qty: 7 0RF docusate sodium 100 mg Capsule 100 mg PO BID Qty: 0 0RF acetaminophen 650 mg/20.3 mL Solution 650 mg PO Q4H PRN (Reason: moderate pain) Qty: 0 0RF polyethylene glycol 3350 17 gram Powder In Packet 17 g PO DAILY PRN (Reason: constipation) Qty: 0 0RF lorazepam [Ativan] 0.5 mg tablet 0.5 mg PO TID PRN (Reason: anxiety) Qty: 7 0RF albuterol sulfate 90 mcg/actuation HFA aerosol inhaler 2 puff inhalation Q4-6H PRN (Reason: SOB/Wheezing) hydroxychloroquine [Plaquenil] 200 mg tablet 200 mg PO DAILY Qty: 90 1RF celecoxib [Celebrex] 200 mg capsule 200 mg PO BID 90 Days Qty: 180 1RF Referrals: Millicent Chapa MD [Primary Care Provider] - 06/23/24 Maurice Masters MD [Physician] - 06/28/24 Print Language: Turkmen
--- NOTE | 2024-06-22 15:32 | ECG_ITS ---
Test Reason : sob Blood Pressure : */* mmHG Vent. Rate : 72 BPM Atrial Rate : 72 BPM P-R Int : 174 ms QRS Dur : 126 ms QT Int : 404 ms P-R-T Axes : 71 -34 76 degrees QTcB Int : 442 ms Normal sinus rhythm Left axis deviation Left bundle branch block Abnormal ECG When compared with ECG of 29-Jul-2023 23:11, Left bundle branch block is now Present Criteria for Septal infarct are no longer Present Referred By: Garcia Red Electronically Signed By: OLY MCKEON MD
[2024-06-22 15:54] LABS: MANUAL DIFF FLAG NO
[2024-06-22 15:55] LABS: Basophils Percent Auto 0.6 % (0-2); Eosinophils Absolute Auto 0.2 X10*3/uL (0.0-0.4); Eosinophils Percent Auto 5.2 % (0-4); Hematocrit 33.5 % (37.0-47.0); Hemoglobin 10.7 g/dl (12.0-16.0); Imm Gran Abs Auto 0.01 X10*3/uL (0.00-0.03); Imm Gran Pct Auto 0.2 % (0.0-0.4); Lymphocytes Absolute Auto 1.1 X10*3/uL (1.2-4.9); Mean Corpuscular HGB Conc 31.9 g/dl (31.0-35.0); Mean Corpuscular Hemoglobin 29.8 pg (27.0-33.0); Mean Corpuscular Volume 93.3 fL (80.0-98.0); Mean Platelet Volume 10.1 fL (9.4-12.3); Monocytes Absolute Auto 0.4 X10*3/uL (0.1-1.2); Monocytes Percent Auto 9.3 % (2-11); Neutrophils Absolute Auto 2.8 x10*3/uL (2.0-8.3); Neutrophils Percent Auto 60.7 % (45-73); Platelet Count 245 X10*3/uL (160-400); Red Blood Count 3.59 X10*6/uL (4.20-5.50); Red Cell Distribution Width 12.8 % (11.0-16.0); White Blood Count 4.6 X10*3/uL (4.8-10.8)
[2024-06-22 16:01] LABS: INTERNATIONAL NORM RATIO 0.9 (0.9-1.1); Prothrombin Time 10.9 SEC (10.9-12.4)
[2024-06-22 16:11] LABS: Alanine Aminotransferase 14 U/L (0-31); Albumin Level 4.2 g/dL (3.5-5.0); Alkaline Phosphatase 57 U/L (39-117); Anion Gap 9 (12-20); Aspartate Amino Transferase 19 U/L (5-31); Bilirubin Total 0.3 mg/dL (0.0-1.0); Blood Urea Nitrogen 27 mg/dL (9-16); Calcium 9.3 mg/dL (8.4-10.2); Carbon Dioxide 28 mmol/L (22-29); Chloride 110 mmol/L (96-108); Creatinine Clr Calc Pharmacy 72.3; Estimated Glomerular Filt Rate > 60; Glucose Random 91 mg/dL (60-115); Lipase 16 U/L (8-78); Magnesium 2.3 mg/dL (1.6-2.6); Sodium 143 mmol/L (135-145)
[2024-06-22 16:17] LABS: B Type Natriuretic Peptide 12 pg/mL (<100)
[2024-06-22 16:18] LABS: Troponin-I High Sensitivity < 2.7 ng/L (<3.5-17.0)
[2024-06-22 16:45] LABS: Influenza A PCR NEGATIVE (Negative); Influenza B PCR NEGATIVE (Negative); Resp Syncy Virus RNA Qual PCR NEGATIVE (Negative); SARS COV2 PCR INHOUSE NEGATIVE (Negative)
[2024-06-22 18:30] LABS: D Dimer High Sensitivity < 150 NG/ML
--- NOTE | 2024-06-22 18:51 | ED.GENADULT ---
HPI - General Adult General Chief complaint: General Medical Stated complaint: fluid in lungs and legs swelling Time Seen by Provider: 06/22/24 18:24 History of Present Illness HPI narrative: Patient is a 63-year-old female presents today with having pain to the left knee. Has a history of knee pain. History of tibial plateau fracture after a fall. Being managed conservatively. Patient denies any additional trauma. [place] short of breath. Usually worse with walking. There is no chest pain there is no diaphoresis. There is no nausea there is no vomiting there is no coughing there is no congestion there is no upper respiratory symptoms there is no bloody stool there is no change in diet there is no change in sleep pattern patient is from home. Feels that the left leg is swollen since the tibial plateau fracture. Related Data Home Medications ?Medication ?Instructions ?Recorded ?Confirmed albuterol sulfate 90 mcg/actuation 2 puff inhalation Q4-6H PRN 04/07/22 06/16/24 aerosol inhaler SOB/Wheezing Previous Rx's ?Medication ?Instructions ?Recorded ondansetron 4 mg disintegrating 4 mg PO Q8H PRN nausea and 04/25/22 tablet vomiting #7 tabs acetaminophen 650 mg/20.3 mL oral 650 mg (20.3 mL) PO Q4H PRN 02/01/24 solution moderate pain #0 mL docusate sodium 100 mg capsule 100 mg PO BID #0 caps 02/01/24 lorazepam 0.5 mg tablet (Ativan) 0.5 mg PO TID PRN anxiety #7 tabs 02/01/24 polyethylene glycol 3350 17 gram 17 g PO DAILY PRN constipation #0 02/01/24 oral powder packet ea celecoxib 200 mg capsule (Celebrex) 200 mg PO BID 90 days #180 caps 06/16/24 hydroxychloroquine 200 mg tablet 200 mg PO DAILY #90 tabs 06/16/24 (Plaquenil) Allergies Allergy/AdvReac Type Severity Reaction Status Date / Time gluten [Gluten] Allergy Severe PT HAS Verified 06/22/24 15:25 CELIAC DISEASE Sulfa (Sulfonamide Allergy Severe LUPUS-LIKE Verified 06/22/24 15:25 Antibiotics) benztropine [Cogentin] Allergy Intermediate Rash Verified 06/22/24 15:25 ciprofloxacin [From Cipro] Allergy Intermediate TENDONOPATH Verified 06/22/24 15:25 Y/NEUROPATH Y shellfish derived Allergy Intermediate Hives Verified 06/22/24 15:25 promethazine Allergy Unknown Unknown Verified 06/22/24 15:25 nitrofurantoin AdvReac Severe Drug Verified 06/22/24 15:25 [From Macrodantin] induced Hep Mandelamine Allergy Intermediate Drug Uncoded 05/29/24 14:26 induced Hep QUINOLONES Allergy Intermediate Unknown Uncoded 05/29/24 14:26 Review of Systems Review of Systems: Positive knee pain Yes all other systems are reviewed and are negative [facility] Past Medical History Attestation statement: The following information was validated with the patient. Medical History Long-term use of Plaquenil Undifferentiated connective tissue disease Rheumatoid factor positive Post-COVID chronic cough Neuropathy Asthma Diverticulosis Kidney stone Celiac sprue Surgical History H/O cystoscopy S/P cardiac cath (~07/2020) Hx of excision of mass (~1999) Family History Family History Mother Cervical cancer Uterine cancer History of thyroid disorder Maternal Grandmother Diabetes Stroke Maternal Grandfather Diabetes Coronary artery disease Paternal Grandmother Uterine cancer Diabetes Stroke Paternal Grandfather Stroke Father Bladder cancer Social History Social History Household Members: Spouse Household Members Other:: Son Alcohol intake: current Alcohol intake frequency: holidays/special occasions only Patient Tobacco Use Status: Never used Tobacco Smoked in Last 30 Days: No Use of substances other than those prescribed or required for medical reasons: No Advance Directives: Yes Advance Directives on File: Yes Advance Directives Date on File: 04/27/22 Do you have a plan to hurt others: No Plan service: No 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 Oriented X3. No acute distress. Eyes: Pupils equal, round and reactive to light. ENT: Pharynx normal. Neck: Normal inspection. Neck supple. No lymph nodes noted. No crepitus CVS: Normal heart rate and rhythm. Pulses normal. Normal S1 and S2 Respiratory: No respiratory distress. Breath sounds normal. No Wheezing. No rales Abdomen: Soft and nontender. No rigidity. No distention. good BS x4 Skin: Skin warm and dry. Normal skin color. Normal skin turgor. Extremities: Examination of the left knee showed no patella tenderness. No deformities noted. No pain on palpation medial lateral collateral ligament. No joint effusion. Calf size was larger on the left compared to the right side. Distal pulses intact sensation intact ambulates with a walker. Neuro: Oriented X 3. No motor deficit. No sensory deficit. Moving all extermities. No slurred speech Medications Administered Discontinued Medications Generic Name Dose Route Start Last Admin Trade Name Freq PRN Reason Stop Dose Admin Hydromorphone HCl 0.25 mg 06/22/24 19:49 06/22/24 20:08 Hydromorphone Hcl 0.5 Mg/0.5 Ml Syringe IVPUSH 06/22/24 19:50 0.25 mg ONCE ONE Administration Protocol Ketorolac Tromethamine 15 mg 06/22/24 18:48 06/22/24 19:02 Ketorolac Tromethamine 15 Mg/Ml Vial IVPUSH 06/22/24 18:49 15 mg ONCE ONE Administration Lorazepam 0.5 mg 06/22/24 19:49 06/22/24 20:08 Lorazepam 2 Mg/Ml Vial IVPUSH 06/22/24 19:50 0.5 mg ONCE ONE Administration Ondansetron HCl 4 mg 06/22/24 20:05 06/22/24 20:08 Ondansetron Hcl 4 Mg/2 Ml Vial IVPUSH 06/22/24 20:06 4 mg ONCE ONE Administration Medical Decision Making Medical Decision Making MDM Narrative: My interpretation of patient's chest x-ray was negative there is no evidence for pneumonia no pneumothorax. My interpretation of patient's EKG showed a sinus rhythm heart rate was 80 there is a left bundle branch block. This is old. There is no Sgarbossa criteria. Patient's troponin is negative. Patient's BNP is normal no evidence for congestive heart failure no evidence for heart strain. Patient is D-dimer is less than 150. Doppler ultrasound of the left lower extremity was grossly negative. In this setting unlikely to have a PE unlikely to have a DVT. Patient's hemoglobin is 10.7. This is approximately baseline. Electrolytes showed mildly elevated BUN and creatinine this is old. Patient's flu COVID RSV were all negative. O2 sat is 98% on room air. Patient complaining of pain to the knee. Patient's MRI was done on June 02. It showed a 1. Horizontal tear in the lateral meniscus. 2. Findings in the lateral tibial plateau likely represent a mild stress fracture. Patient given a small dose of Ativan along with a small dose of Dilaudid for spasm and pain with good resolution of symptoms. Patient to be discharged home. Workup was negative. Differential Diagnosis Differential Diagnoses: The differential diagnosis associated with the presentation includes Admission/Observation Consideration of admission/observation: Escalation of care including admission/observation considered Lab Data 06/22/24 15:47 06/22/24 15:47 Labs: Lab Results 06/22/24 Range/Units 15:47 WBC 4.6 L (4.8-10.8) X10*3/uL RBC 3.59 L (4.20-5.50) X10*6/uL Hgb 10.7 L (12.0-16.0) g/dl Hct 33.5 L (37.0-47.0) % MCV 93.3 (80.0-98.0) fL MCH 29.8 (27.0-33.0) pg MCHC 31.9 (31.0-35.0) g/dl RDW 12.8 (11.0-16.0) % Plt Count 245 (160-400) X10*3/uL MPV 10.1 (9.4-12.3) fL Immature Gran % (Auto) 0.2 (0.0-0.4) % Neut % (Auto) 60.7 (45-73) % Lymph % (Auto) 24.0 (20-40) % [place] % (Auto) 9.3 (2-11) % Eos % (Auto) 5.2 H (0-4) % Baso % (Auto) 0.6 (0-2) % Lymph # (Auto) 1.1 L (1.2-4.9) X10*3/uL [place] # (Auto) 0.4 (0.1-1.2) X10*3/uL Eos # (Auto) 0.2 (0.0-0.4) X10*3/uL Baso # (Auto) 0.0 (0.0-0.2) X10*3/uL Abs Immat Gran (auto) 0.01 (0.00-0.03) X10*3/uL Absolute Neuts (auto) 2.8 (2.0-8.3) x10*3/uL Absolute Nucleated RBC 0.000 (0.0-0.012) X10*3/uL Nucleated RBC % (auto) 0.0 (0.0-0.2) /100WBC PT 10.9 (10.9-12.4) SEC INR 0.9 (0.9-1.1) D-Dimer High Sensitivty < 150 NG/ML Sodium 143 (135-145) mmol/L Potassium 4.0 (3.3-5.1) mmol/L Chloride 110 H (96-108) mmol/L Carbon Dioxide 28 (22-29) mmol/L Anion Gap 9 L (12-20) BUN 27 H (9-16) mg/dL Creatinine 0.65 (0.5-1.4) mg/dL Estim Creat Clear Calc 72.3 Estimated GFR > 60 Random Glucose 91 (60-115) mg/dL Calcium 9.3 (8.4-10.2) mg/dL Magnesium 2.3 (1.6-2.6) mg/dL Total Bilirubin 0.3 (0.0-1.0) mg/dL AST 19 (5-31) U/L ALT 14 (0-31) U/L Alkaline Phosphatase 57 (39-117) U/L Troponin I High Sens < 2.7 (<3.5-17.0) ng/L B-Natriuretic Peptide 12 (<100) pg/mL Total Protein 7.0 (6.5-8.0) g/dL Albumin 4.2 (3.5-5.0) g/dL Lipase 16 (8-78) U/L Influenza Type A (PCR) NEGATIVE (Negative) Influenza Type B (PCR) NEGATIVE (Negative) RSV RNA Qual (PCR) NEGATIVE (Negative) SARS-CoV-2 RNA (RT-PCR) NEGATIVE (Negative) Discharge Plan Discharge Clinical Impression: Stiffness of left knee, Knee pain, bilateral Patient Disposition: Home, Self-Care Instructions: Knee Pain (ED) Prescriptions: No Action ondansetron 4 mg tablet,disintegrating 4 mg PO Q8H PRN (Reason: nausea and vomiting) Qty: 7 0RF docusate sodium 100 mg Capsule 100 mg PO BID Qty: 0 0RF acetaminophen 650 mg/20.3 mL Solution 650 mg PO Q4H PRN (Reason: moderate pain) Qty: 0 0RF polyethylene glycol 3350 17 gram Powder In Packet 17 g PO DAILY PRN (Reason: constipation) Qty: 0 0RF lorazepam [Ativan] 0.5 mg tablet 0.5 mg PO TID PRN (Reason: anxiety) Qty: 7 0RF albuterol sulfate 90 mcg/actuation HFA aerosol inhaler 2 puff inhalation Q4-6H PRN (Reason: SOB/Wheezing) hydroxychloroquine [Plaquenil] 200 mg tablet 200 mg PO DAILY Qty: 90 1RF celecoxib [Celebrex] 200 mg capsule 200 mg PO BID 90 Days Qty: 180 1RF Referrals: Millicent Chapa MD [Primary Care Provider] - 06/23/24 Maurice Masters MD [Physician] - 06/28/24 Print Language: Kyrgyz
[2024-06-22] MEDS: Ketorolac Tromethamine 15 MG/ML VIAL IVPUSH (19:02)
[2024-06-22 19:03] VITALS: BP 125/69; PULSE 66; RESP 20; TEMP 36.6; O2SAT 99
[2024-06-22 20:07] VITALS: BP 125/72; PULSE 77; RESP 16
[2024-06-22] MEDS: HYDROmorphone HCl 0.5 MG/0.5 ML SYRINGE 0.25 MG IVPUSH (20:08)
[2024-06-22] MEDS: LORazepam 2 MG/ML VIAL 0.5 MG IVPUSH (20:08)
[2024-06-22] MEDS: ondansetron HCL 4 MG/2 ML VIAL IVPUSH (20:08)
[2024-06-22 20:25] VITALS: BP 121/63; PULSE 69; RESP 16; TEMP 37; O2SAT 98
[2024-06-22 21:13] VITALS: BP 121/63; PULSE 69; RESP 16; TEMP 37; O2SAT 98
== END 2024-06-22 21:42 | disposition home or self-care (01) ==
PROVIDERS: Physician Assistant; Emergency Provider Emergency Medicine Emergency Medical Services; PCP Internal Medicine
DX: M25.562 Pain in left knee (principal); M25.561 Pain in right knee; M25.662 Stiffness of left knee, not elsewhere classified; R06.02 Shortness of breath; M79.89 Other specified soft tissue disorders; Z03.818 Encounter for observation for suspected exposure to other biological agents ruled out
CPT/HCPCS: 0241U; 36415; 71046; 80053; 83690; 83735; 83880; 84484; 85025; 85379; 85610; 93005; 93970; 96374; 96375; 99284; J1171; J1885; J2060; J2405

== ENCOUNTER → 2024-06-22 15:32 | Outpatient (BNV) | payer BC, SELFPAY | PROVIDERS: Emergency Provider Emergency Medicine Emergency Medical Services; PCP Internal Medicine; Visit Provider Internal Medicine Cardiovascular Disease | DX: I44.7 Left bundle-branch block, unspecified (principal) | CPT/HCPCS: 93010 ==

== ENCOUNTER 2024-06-29 10:56 | Outpatient (REF) | payer BC, SELFPAY ==
--- NOTE | ~2024-06-29 | XR_ITS ---
EXAMINATION: XR ANKLE, RIGHT CLINICAL INFORMATION: M25.571 - Pain in right ankle and joints of right foot COMPARISON: None available. TECHNIQUE: AP, lateral, and mortise views of the right ankle. FINDINGS: Moderate lateral malleolar soft tissue swelling. The ankle mortise and subtalar joints are normal. No visible acute fracture, dislocation or subluxation seen XR/XR ankle RT 2V IMPRESSION: Moderate lateral malleolar soft tissue swelling. Electronically signed by: Juan Caban MD 06/29/2024 12:41 PM EST RP
--- NOTE | ~2024-06-29 | XR_ITS ---
EXAMINATION: XR ANKLE, LEFT CLINICAL INFORMATION: M25.571 - Pain in right ankle and joints of right foot COMPARISON: None available. TECHNIQUE: AP, lateral, and mortise views of the left ankle. FINDINGS: The ankle mortise and subtalar joints are normal. There is no visible acute fracture, dislocation or subluxation seen. The ankle mortise and subtalar joints are normal. There is diffuse osteopenia with lateral malleolar soft tissue swelling. XR/XR ankle LT 2V IMPRESSION: Lateral malleolar soft tissue swelling. No visible acute fracture or dislocation seen. Diffuse osteopenia Electronically signed by: Juan Caban MD 06/29/2024 12:40 PM EST
--- OUTSIDE RECORDS SUMMARY | 2024-06-29 15:43 | XMS_ITS | Encounter Summary ---
Author Organization [facility] [address] Address [address] [place] [address] Care Team Providers Care Seamstress Fitter Name Role Phone Millicent Chapa MD Primary Care Prov ider Reason for Referral * Consultation (Routine) - Pending Review Specialty Diagnoses / Procedures Referred By Lillian arroyo Referred To Contact Behavioral Health Diagnoses Chronic pain syndrome Millicent Chapa MD [address] [place], [place] Referral ID Status Reason Start Date Expiration Date Visits Requested Visits Authorized [id number] Pending Review Specialty Services Required 06/15/2024 06/15/2025 1 1 Reason for Visit * Reason Comments Knee Injury Fatigue Encounter Details Date Type Department Care Team (Late st Contact Info) Description 06/15/2024 10:00 AM EST Office Visit Adult Medicine [facility] [address] [place] [phone] Millicent Chapa MD [address] [place], [place] Closed fracture of left tibial plateau with delayed healing, subsequent encounter (Primary Dx); Chronic pain syndrome; Osteoporosis, unspecified osteoporosis type, unspecified pathological fracture presence Social History Tobacco Use Types Packs/Day Years Used Date Smoking Tobacco: Never Smokeless Tobacco: Never Tobacco Cessation:Counseling Given: Not Answered Alcohol Use Standard Drinks/Week Comments No 0 (1 standard drink = 0.6 oz pur e alcohol) Sex and Gender Information Value Date Recorded Sex Assigned at Not on file Gender Identity Not on file Sexual Orientation Not on file Job Start Date Occupation Industry Not on file Not on file Not on file documented as of this encounter Last Filed Vital Signs Vital Sign Reading Time Taken Comments Blood Pressure 120/84 06/15/2024 10:09 AM EST Pulse 78 06/15/2024 10:09 AM EST Temperature 36.8 ??C (98.2 ??F) 06/15/2024 10:[address] Respiratory Rate - - Oxygen Saturation - - Inhaled Oxygen Concentration - - Weight - - Height - - Body Mass Index - - documented in this encounter Ordered Prescriptions Prescription Sig Dispensed Refills Start Date End Da te predniSONE (DELTASONE) 1 mg tablet Take 1 tablet (1 mg total) by mouth 1 (one) time each day. 30 each 3 06/15/2024 10/13/2024 documented in this encounter Progress Notes * Millicent Chapa MD - 06/15/2024 10:00 AM EST CHIEF COMPLAINT: Knee Injury and Fatigue IDENTIFIER: Ruby Tarango is a 63 y.o. old female. 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 Sometime in December patient fractured her left tibia plateau. She was nonweightbearing for a while patient states she did quite well until about 3 weeks ago when she reinjured it when she fell She has been to orthopedics MRI showed healing of the tibial plateau but possible tendinitis musclestrain she already has an old partial tear of her meniscus in the left knee She is also concerned that her right knee started to hurt because of increased stresses because sheis favoring the right knee because of problems with the left knee She continues to complain of ongoing fatigue chronic pain We have been working with different providers and specialist to come up with a diagnosis for patient She has an underlying autoimmune disease that we have not been able to define. We discussed about pain management. Due to patient being out of work for so long she lost her job. ROS: See HPI PAST MEDICAL HISTORY: Patient Active Problem List Diagnosis Date Noted Anxiety 05/17/2024 Celiac sprue 05/17/2024 Weight loss 05/17/2024 Closed fracture of left tibial plateau 02/25/2024 Chronic pain of left knee 04/23/2023 Osteopenia of left thigh 09/07/2022 Complex regional pain syndrome type 1 of left lower extremity 08/25/2022 COVID-19 long hauler manifesting chronic muscle pain 07/13/2022 Post viral syndrome 05/28/2022 COVID-19 virus infection 04/17/2022 Diverticulitis 09/10/2018 Asthma 03/31/2018 Sensorineural hearing loss (SNHL) of both ears 03/31/2018 Diverticulosis 09/29/2013 Abnormal chest x-ray 01/06/2013 Adhesive capsulitis of shoulder 01/05/2012 Muscle weakness (generalized) 01/05/2012 SOCIAL HISTORY: Social History Tobacco Use Smoking status: Never Smokeless tobacco: Never Substance Use Topics Alcohol use: No FAMILY HISTORY: Family Status Relation Name Status Mother Alive MGM MGF PGM PGF Father No partnership data on file Family History Problem Relation Name Age of Onset Other cancer Mother cervical and uterine Thyroid disease Mother Diabetes Maternal Grandmother cholesterol, stroke Diabetes Maternal Grandfather CAD Uterine cancer Paternal Grandmother diabetes, cholesterol stroke Stroke Paternal Grandfather ACTIVE MEDICATIONS: Outpatient Medications Marked as Taking for the 06/15/24 encounter (Office Visit) with Millicent Chapa MD Medication Sig Dispense Refill albuterol HFA (PROAIR HFA ; PROVENTIL HFA ; VENTOLIN HFA) 90 mcg/actuation inhaler Inhale 2 Puffs into the lungs every 4 hours as needed for Cough or Wheezing. ibuprofen (MOTRIN ORAL) Take by mouth. LORazepam (ATIVAN) 0.5 mg tablet Take 1 tablet (0.5 mg total) by mouth 2 (two) times a day. Max Daily Amount: 1 mg 56 tablet 2 ondansetron ODT (ZOFRAN-ODT) 4 mg disintegrating tablet Take 1 Tablet by mouth every 8 hours as needed for Nausea (prn). Take 1 Tablet by mouth every 8 hours as needed. UNABLE TO FIND Misc. Devices ([employer] Spirit Knee/Leg Walker) Misc, 1 Device by Does not apply route daily. ALLERGIES: Methenamine mandelate, Nitrofurantoin, Bee venom protein (honey bee), Benztropine, Ciprofloxacin-hydrocortisone, Gluten, Iodinated contrast media, Prochlorperazine maleate, Quinolones, Shellfish containing products, Shellfish derived, and Sulfa (sulfonamide antibiotics) PHYSICAL EXAM: Blood pressure 120/84, pulse 78, temperature 36.8 ??C (98.2 ??F), temperature source Temporal. There is no height or weight on file to calculate BMI. Plan is deferred until next visit APPEARANCE: Alert and in no acute distress EXTREMITIES: Mild swelling noted in the right knee. Left knee significant swelling redness however patient has significant range of motion good pedal pulses LABS: Wt Readings from Last 3 Encounters: 11/23/23 1609 47.6 kg (105 lb) 07/21/23 1401 (!) 44.8 kg (98 lb 12.8 oz) 07/16/23 1405 45.6 kg (100 lb 9.6 oz) IMPRESSION: 1. Closed fracture of left tibial plateau with delayed healing, subsequent encounter 2. Chronic pain syndrome 3. Osteoporosis, unspecified osteoporosis type, unspecified pathological fracture presence PLAN: Closed fracture of the left tibial plateau with delayed healing due to reinjury We discussed about pain medicine management She has been unable to tolerate Lyrica or gabapentin tramadol can only take Dilaudid but worried about addiction We decided on low-dose prednisone for now She will see the business planning director she has had a persistently elevated rheumatoid factor but no diagnosis of rheumatoid arthritis Osteoporosis We discussed about Prolia Right now she has been unable to do a lot of walking or weightbearing exercises because of any fracture Return to the office in 2 months or as needed Orders Placed This Encounter Procedures Ambulatory referral to Behavioral Health ADDITIONAL ORDERS: AMB REFERRAL TO BEHAVIORAL HEALTH Millicent Chapa MD on 06/15/2024 at 1:09 PM EST documented in this encounter Plan of Treatment Upcoming Encounters Date Type Department Care Team (Late st Contact Info) Description 08/17/2024 9:30 AM EDT Office Visit Adult Medicine [facility] [address] [place] [id number] Fredrick Munoz PA [address] [place] [address] 09/27/2024 8:30 AM EDT Office Visit Adult Medicine [facility] [address] [place] [address] Millicent Chapa MD [address] [place] [address] Scheduled Referrals Name Type Priority Associated Diagnoses Order Schedule Ambulatory referral to Behavioral Health Outpatient Referral Routine Chronic pain syndrome 1 Occurrences starting 06/15/2024 until 06/15/2025 documented as of this encounter Visit Diagnoses Diagnosis Closed fracture of left tibial plateau with delayed healing, subsequent encounter- Primary Chronic pain syndrome Osteoporosis, unspecified osteoporosis type, unspecified pathological fracture presence documented in this encounter Care Teams Seamstress Fitter Relationship Specialty Start Date End Date Millicent Chapa MD [address] [place] [address] PCP - General 07/21/06 documented as of this encounter
--- OUTSIDE RECORDS SUMMARY | 2024-06-29 15:43 | XMS_ITS | Encounter Summary ---
Author Organization [facility] Address [address] [place] [address] Care Team Providers Care Cigarette Maker Name Role Phone Millicent Chapa MD Primary Care Prov ider Reason for Visit * Reason Onset Date Comments Pain 06/20/2024 Encounter Details Date Type Department Care Team (Late st Contact Info) Description 06/20/2024 Telephone Adult Medicine - [place] [address] [place] [phone] Millicent Chapa MD [address] [place] [address] Pain Social History Tobacco Use Types Packs/Day Years Used Date Smoking Tobacco: Never Smokeless Tobacco: Never Alcohol Use Standard Drinks/Week Comments No 0 (1 standard drink = 0.6 oz pur e alcohol) Sex and Gender Information Value Date Recorded Sex Assigned at Not on file Gender Identity Not on file Sexual Orientation Not on file Job Start Date Occupation Industry Not on file Not on file Not on file documented as of this encounter Progress Notes * Amina Baez RN - 06/27/2024 3:04 PM EST Noted * Arnold Ramsey - 06/27/2024 2:54 PM EST Patient called and canceled her appt on 06/28/2024 stating that she prefers to be seen by care team.Pt stating she will have to go to the ER at this time * Raman Harley RN - 06/22/2024 9:40 AM EST Pt advised of PCP message * Arnold Ramsey - 06/22/2024 8:51 AM EST Patient called back stating today her both ankles are very swollen. Please call * Raman Harley RN - 06/22/2024 8:07 AM EST Left message for pt to please return our call * Raman Harley RN - 06/21/2024 10:17 AM EST Left message for pt to please return our call * Millicent Chapa MD - 06/21/2024 10:10 AM EST We cannot really work on her Achilles because it involves exercises that would affect her knees. Just local stretching will be good for now can refer her to podiatry if she wants * Raman Harley RN - 06/21/2024 9:06 AM EST Spoke to pt she agrees to do what podiatry assistant says , pt states that she is having some achilles heal worse in left but starting in right , pt states that she is having burning that wakes her up she has been taking NSAID and using Voltaren cream , pt is asking if there is any diagnostic for this and if she can hove PT ordered for this * Millicent Chapa MD - 06/21/2024 8:48 AM EST Thank you for talking to her. Yes she should try what the podiatry assistant is recommending at least 3months and lets see what happens * Millicent Chapa MD - 06/20/2024 5:06 PM EST Wow. I do know what to think. I think she should choose 1 specialist and go with what ever they say. My suggestion is to go with the podiatry assistant. We did talk about Plaquenil in the past okay to try it she was reluctant to take it * Amina Baez RN - 06/20/2024 4:05 PM EST Patient called back. saw PCP 06/15 Since the appt with PCP, Burning pain left foot worse at night, back of heel. Using 800mg Motrin Q 6-8 hours and Tylenol 975 every 4-6 hours. ? Achilles tendontitis. swollen posterior achilles and left to right of ankle. Compression socks used. Doing as much as she can to rest it but also trying keep somewhat active for the knee Has had international tax manager PT since knee buckled at PT 2 weeks ago Reports she is unrested, up many times per night due to the pain Also states has Right and left knee tendonopathy. This past weekend started with swelling Both feet, mostly left. Foot doubled in size . Had to purchase new larger shoe to fit the foot. Swelling is a little better with the compression sock. Startedhaving more medial knee pain. Was told by Ortho that she should follow up in Jul and was told don't make too much of this pain At last visit with PCP discussed prednisone. Saw Rheum, Dr Burgess, on 06/16 [address] the prednisone with Dr Burgess. Rheumatology said no mixed connective tissue disorder. 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 Wants to start her on plaquenil I feel like I'm at a tipping point . Since ortho doesn't want to see her until July. Nobody can explain why I'm having this issue . Calf is martin, no pain. I don't feel quite myself Wants to know what PCP thinks of Plaquenil. Would take 3 months to see any benefit. Feels caught between a rock and a hard place and feels the pain at this point is out of control. Has access to lyrica from ortho but was told by PCP not to take it due to how she responded to it. Was told by Rheum to stop ibuprofen and no prednisone. Use Celoxicab and plaquenil. Has celoxicab concerns due to increased cardiac risk Confusion in what she should do and in what order. No clear cut path for pain control Asking for an order a diagnostic to confirm the achilles tendonitis thinks may need a new order forPT for this I feel like I'm backed into a corner Needs guidance on pain control. Labs from [facility] Sed rate mildly elevated which is new. Rheum factor was elevated as well (38 range). Other labs WNL, kidney function good * Amina Baez RN - 06/20/2024 2:43 PM EST Left message to call back * Leonard Celestin - 06/20/2024 1:50 PM EST Pt calling and is having extreme pain of achilles tendonitis, also has a fractured tibia. Pt needs some other recommendations for OTC until she can see Stanley 06/27 documented in this encounter Plan of Treatment Upcoming Encounters Date Type Department Care Team (Late st Contact Info) Description 08/17/2024 9:30 AM EDT Office Visit Adult Medicine - [place] [address] [place] [phone] Fredrick Munoz PA [address] [place], [place] 09/27/2024 8:30 AM EDT Office Visit [facility] [place] [address] [place] [phone] Millicent Chapa MD [address] [place], [place] documented as of this encounter Visit Diagnoses Not on filedocumented in this encounter Care Teams Cigarette Maker Relationship Specialty Start Date End Date Millicent Chapa MD [address] [place], [place] PCP - General 07/21/06 documented as of this encounter
--- OUTSIDE RECORDS SUMMARY | 2024-06-29 15:43 | XMS_ITS | Clinical Summary ---
Author Organization [facility] [address] [facility] l[facility] Address [address] [place] [address] Phone Care Team Providers Care Rn Ostomy Name Role Phone Millicent Chapa MD Primary Care Prov ider Allergies Active Allergy Reactions Criticality Noted Date Comments Bee Venom Protein (Honey Bee) 2009 Benztropine 02/02/2014 Other Reaction(s): OTHER Double vision Ciprofloxacin-Hydrocortisone 010 Other Reaction(s): Rash/Dermatitis Gluten 03/01/2010 Iodinated Contrast Media 11/12/2022 Methenamine Mandelate High 03/01/2010 Other Reaction(s): OTHER Drug induced hep Nitrofurantoin High 03/01/2010 Other Reaction(s): OTHER Drug induced Hep Prochlorperazine Maleate 10/22/2010 Other Reaction(s): OTHER distonia Quinolones 08/12/2012 Periph neuropathy Shellfish Containing Products 2009 Shellfish Derived 02/05/2006 Sulfa (Sulfonamide Antibiotics) 02/05/2006 Medications Medication Sig Dispensed Refills Start Date End Date Status HYDROmorphone (DILAUDID) 2 mg tablet 02/18/2024 Ac tive pregabalin (LYRICA) 25 mg capsule Take 1 capsule (25 mg total) by mouth 2 (two) times a day. Max Daily Amount: 50 mg 02/18/2024 Active UNABLE TO FIND Misc. Devices (Free Spirit Knee/Leg Walker) Misc, 1 Device by Does not apply route daily. 01/28/2024 Active albuterol HFA (PROAIR HFA ; PROVENTIL HFA ; VENTOLIN HFA) 90 mcg/actuation inhaler Inhale 2 Puffs into the lungs every 4 hours as needed for Cough or Wheezing. 08/26/2023 Active ondansetron ODT (ZOFRAN-ODT) 4 mg disintegrating tablet Take 1 Tablet by mouth every 8 hours as needed for Nausea (prn). Take 1 Tablet by mouth every 8 hours as needed. 05/05/2023 Active zoledronic acid (RECLAST) 5 mg/100 mL piggyback Inject 5 mg into the vein Once. 08/28/2022 Active ibuprofen (MOTRIN ORAL) Take by mouth. Active LORazepam (ATIVAN) 0.5 mg tablet Take 1 tablet (0.5 mg total) by mouth 2 (two) times a day. Max Daily Amount: 1 mg 56 tablet 2 05/17/2024 Active predniSONE (DELTASONE) 1 mg tablet Take 1 tablet (1 mg total) by mouth 1 (one) time each day. 30 each 3 06/15/2024 10/13/2024 Active Active Problems Problem Noted Date Diagnosed Date Anxiety 05/17/2024 Celiac sprue 05/17/2024 Weight loss 05/17/2024 Closed fracture of left tibial plateau Chronic pain of left knee 04/23/2023 Osteopenia of left thigh 09/07/2022 Complex regional pain syndro me type 1 of left lower extremity 08/25/2022 COVID-19 long hauler manifesting chronic muscle pain 07/13/2022 Post viral syndrome 05/28/2022 COVID-19 virus infection 04/17/2022 Overview (05/17/2024): 03/2022 Diverticulitis 09/10/2018 Asthma 03/31/2018 Overview (05/17/2024): Diagnosed in 2002 per pt Sensorineural hearing loss (SNHL) of both ears 1 05/31/2017 Overview (05/17/2024): Wears hearing aids Diverticulosis 09/29/2013 Abnormal chest x-ray 01/06/2013 Adhesive capsulitis of shoulder 01/05/2012 Muscle weakness (generalized) 01/05/2012 Encounters Date Type Department Care Team Description 06/20/2024 Telephone Adult [address] [phone] Millicent Subramanian MD Pain 06/15/2024 10:00 AM EST Office Visit Adult [address] [phone] Millicent Subramanian MD Closed fracture of left tibial plateau with delayed healing, subsequent encounter (Primary Dx); Chronic pain syndrome; Osteoporosis, unspecified osteoporosis type, unspecified pathological fracture presence 05/17/[address] [phone] Millicent Subramanian MD Knee Pain 05/16/2024 Telephone Adult [address] [phone] Millicent Subramanian MD from Last 3 Months Immunizations Name Administration Dates Next Due Influenza Quadravalent, MDCK , 0.5ml, with preservative (Flucelvax) 6mo and older 04/14/2021 [employer] SARS-CoV-2 COVID -19, vector-nr, [id number], preservative free 03/27/2021 PPD Test 03/17/2017,02/18/2010 Surgical History Surgery Date Site/Laterality Comments VAGINAL DELIVERY PROCEDURE: NE VAGINAL DELIVERY ONLY; COMMENT: x3 Medical History Medical History Date Comments Celiac sprue DX:Celiac sprue Anxiety DX:Anxiety Weight loss DX:Weight loss Dermatitis herpetiformis DX:Derm atitis herpetiformis; 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 Diverticulitis 09/10/2018 DX:Diverticuliti s Asthma 03/31/2018 Family History Medical History Relation Name Comments Diabetes Maternal Grandfather CAD Diabetes Maternal Grandmother cholest keena, stroke Other cancer Mother cervical and ut erine Thyroid disease Mother Stroke Paternal Grandfather Uterine cancer Paternal Grandmother diabe renetta, cholesterol stroke Relation Name Status Comments Father Maternal Grandfather Maternal Grandmother Mother Alive Paternal Grandfather Paternal Grandmother Social History Tobacco Use Types Packs/Day Years [...] file Not on file Not on file Obstetrics History Last Filed Vital Signs Vital Sign Reading Time Taken Comments Blood Pressure 120/84 06/15/2024 10:09 AM EST Pulse 78 06/15/2024 10:09 AM EST Temperature 36.8 ??C (98.2 ??F) 06/15/2024 10:[address] Respiratory Rate - - Oxygen Saturation - - Inhaled Oxygen Concentration - - Weight 47.6 kg (105 lb) 11/23/2023 4:09 PM EDT Height 154.9 cm (5' 1 ) 07/21/2023 2:01 PM EST Body Mass Index 19.84 07/21/2023 2:01 PM EST Plan of Treatment Upcoming Encounters Date Type Department Care Team (Late st Contact Info) Description 08/17/2024 9:30 AM EDT Office Visit Adult Medicine [facility] [address] [place] [address] Fredrick Munoz PA [address] [place] [address] 09/27/2024 8:30 AM EDT Office Visit [facility] [address] [place] [phone] Millicent Chapa MD [address] [place] [address] Health Maintenance Due Date Last Done Comments Pneumococcal Vaccine: Pediatrics (0 to 5 Years) and At-Risk Patients (6 to 64 Years) (1 of 2 - PCV) 12/29/1965 DTaP,Tdap,and Td Vaccines (1 - Tdap) 12/29/1978 Zoster Vaccines (1 of 2) 04/15/2017 017, 02/18/2017 RSV Immunization Patients 60 + Years Old (1 - Risk 60-74 years 1-dose series) 2019 Cervical Cancer Screening: P ap Smear 12/29/2020 12/29/2017 Depression Screening 05/04/2022 Social Influencers of Health Screening 05/04/2022 COVID-19 Vaccine (2 - 2023-2 5 season) 2024 03/27/2021 Influenza Vaccine (#1) 2024 3, 04/14/2021 Colorectal Cancer Screening: Colonoscopy 10/26/2024 10/26/2014 Breast Cancer Screening 2025 12/31/19 24, 12/31/2023 Osteoporosis Screening (Bone Density Screening) 07/06/2032 07/06/2022 HIV Screening Completed 02/03/2011 MMR Vaccines Aged Out 02/18/2017, 02/18/2017 No longer eligible based on patient's age to complete this topic Varicella Vaccines Aged Out 02/18/2017, 02/18/2017 No longer eligible based on patient's age to complete this topic Hepatitis C Screening Completed 04/03/2019 HIB Vaccines Aged Out No longer eligi ble based on patient's age to complete this topic HPV Vaccines Aged Out No longer eligi ble based on patient's age to complete this topic Hepatitis A Vaccines Aged Out No long er eligible based on patient's age to complete this topic Hepatitis B Vaccines Aged Out No long er eligible based on patient's age to complete this topic IPV Vaccines Aged Out No longer eligi ble based on patient's age to complete this topic Meningococcal ACWY Vaccine Aged Out N o longer eligible based on patient's age to complete this topic RSV Immunization Patients Under 20 months Aged Out No longer eligible b ased on patient's age to complete this topic Procedures Procedure Name Priority Date/Time Associated Diagnosis Comments DXA BONE DENSITY STUDY 1+ SITS AXIAL SKEL Routine 07/06/2022 11:16 AM EST Age-related osteoporosis without current pathological fracture HEPATITIS C SCREENING Routine 04/03/2019 PAP SMEAR Routine 12/29/2017 COLONOSCOPY Routine 10/26/2014 HIV SCREENING Routine 02/03/2011 from Last 3 Months or Most Recently Relevant to Health Maintenance Results * DXA BONE DENSITY STUDY 1+ SITS AXIAL SKEL (07/06/2022 11:16 AM EST) Anatomical Region Laterality Modality Bone Densitometr y 05/01/2022 4:53 PM EST Narrative 07/06/2022 3:40 PM EST BONE DENSITY (DEXA) ? Lumbar Spine T-score is -2.5. ?? (SD relative to 20-29 y/o adult) Z-score is -0.9. ??(SD relative to age matched peers) This is considered osteoporosis by WHO criteria. Left Hip T-score is -3.8. Z-score is -2.4. This is considered osteoporosis by WHO criteria. IMPRESSION: This patient's considered to have osteoporosis by WHO criteria. The [facility] Department of Internal Medicine recommends using National Osteoporosis Foundation (NOF) guidelines in treatment decisions related to osteoporosis. NOF guidelines suggest considering treatment for postmenopausal women and men aged 50 or older presenting with the following: History of hip or vertebral fracture. T-score = -2.5 (DXA) at the femoral neck, total hip, or spine, after appropriate evaluation to exclude secondary causes. Low bone mass (T-score between -1.0 and -2.5 at the femoral neck or spine) AND a 10-year probability of a hip fracture = 3% OR a 10-year probability of a major osteoporosis-related fracture = 20% based on the [place]-adapted WHO algorithm Please note that all treatment decisions require clinical judgment and consideration of individual patient factors, including patient preferences, co-morbidities, previous drug use, risk factors not captured in the FRAX model (e.g., frailty, falls, vitamin D deficiency, increased bone turnover, interval significant decline in bone density) and possible under- or over-estimation of fracture risk by FRAX. Optional alternative screening schedule based on jana Mahmood., [facility] June 18, 2011 for patients with osteopenia (based on hip BMD T-score) is as follows: * ??advanced osteopenia (T scores -2.00 to -2.49), BMD testing every year * ??moderate osteopenia (T scores -1.50 to -1.99), BMD testing every 5 years mild osteopenia or normal BMD (T scores -1.50 and higher), BMD testing every 15 years Procedure Note Danitza Sher MD - 07/06/2023 BONE DENSITY (DEXA) Lumbar Spine T-score is -2.5. (SD relative to 20-29 y/o adult) Z-score is -0.9. (SD relative to age matched peers) This is considered osteoporosis by WHO criteria. Left Hip T-score is -3.8. Z-score is -2.4. This is considered osteoporosis by WHO criteria. IMPRESSION: This patient's considered to have osteoporosis by WHO criteria. The [facility] Department of Internal Medicine recommendsusing National Osteoporosis Foundation (NOF) guidelines in treatment decisions related toosteoporosis. NOF guidelines suggest considering treatment for postmenopausal women and menaged 50 or older presenting with the following: History of hip or vertebral fracture. T-score = -2.5 (DXA) at the femoral neck, total hip, or spine, afterappropriate evaluation to exclude secondary causes. Low bone mass (T-score between -1.0 and -2.5 at the femoral neck or spine)AND a 10-year probability of a hip fracture = 3% OR a 10-year probability of a majorosteoporosis-related fracture = 20% based on the [place]-adapted WHO algorithm Please note that all treatment decisions require clinical judgment andconsideration of individual patient factors, including patient preferences, co- morbidities,previous drug use, risk factors not captured in the FRAX model (e.g., frailty, falls, vitaminD deficiency, increased bone turnover, interval significant decline in bone density) andpossible under- or over-estimation of fracture risk by FRAX. Optional alternative screening schedule based on jana Mahmood., NEJMJanuary 2011 for patients with osteopenia (based on hip BMD T-score) is as follows: * advanced osteopenia (T scores -2.00 to -2.49), BMD testing every year * moderate osteopenia (T scores -1.50 to -1.99), BMD testing every 5years mild osteopenia or normal BMD (T scores -1.50 and higher), BMD testingevery 15 years Millicent Chapa MD IMG DXA NE OCEDURES * Hepatitis C Screening (04/03/2019) [facility] Hepatitis C Screening abstracted Historical Provider [facility] * Pap Smear (12/29/2017) [facility] Pap smear abstracted, no interpretation Historical Provider [facility] E * Colonoscopy (10/26/2014) Pathologist [facility] Colonoscopy abstracted, no interpretation Anatomical Region Laterality Modality Other Historical Provider [facility] E * HIV Screening (02/03/2011) [facility] HIV Screening abstracted Historical Provider [facility] from Last 3 Months or Most Recently Relevant to Health Maintenance Care Teams Rn Ostomy Relationship Specialty Start Date End Date Millicent Chapa MD [address] [place] [address] PCP - General 07/21/06
--- OUTSIDE RECORDS SUMMARY | 2024-06-29 15:43 | XMS_ITS | Encounter Summary ---
Author Organization [facility] Address [address] [place] [address] Care Team Providers Care Web Applications Developer Name Role Phone Millicent Chapa MD Primary Care Prov ider Encounter Details Date Type Department Care Team (Late Contact Info) Description 05/16/2024 Telephone Adult [address] [phone] Millicent Chapa MD [address] [place] [address] Social History Tobacco Use Types Packs/Day Years [...] on file documented as of this encounter Plan of Treatment Upcoming Encounters Date Type Department Care Team (Late Contact Info) Description 08/17/2024 9:30 AM EDT Office Visit Adult [address] [phone] Fredrick Munoz PA [address] [place], [place] 09/27/2024 8:30 AM EDT Office Visit [address] [phone] Millicent Chapa MD [address] [place] [address] documented as of this encounter Visit Diagnoses Not on filedocumented in this encounter Care Teams Web Applications Developer Relationship Specialty Start Date End Date Millicent Chaap MD [address] [place] [address] PCP - General 07/21/06 documented as of this encounter
--- OUTSIDE RECORDS SUMMARY | 2024-06-29 15:43 | XMS_ITS | Encounter Summary ---
Author Organization [facility] Address [address] [place] [address] Care Team Providers Care Aircraft Pneudraulics Repairer Name Role Phone Millicent Chpaa MD Primary Care Prov ider Reason for Visit * Reason Onset Date Comments Knee Pain 05/17/2024 Encounter Details Date Type Department Care Team (Late st Contact Info) Description 05/17/2024 Telephone Adult Medicine - [place] [address] [place] [phone] Millicent Chapa MD [address] [place] [address] Knee Pain Social History Tobacco Use Types Packs/Day [...] Progress Notes * Amina Baez RN - 06/12/2024 1:13 PM EST Call to patient. Tibia fx left December Rehab and PT and making some steady progress Compensating a lot, now having a lot of pain in right knee Left lateral and medial ankle swelling Back is starting to hurt as well No available appointments until , Patient will continue with NSAIDS until then. Would like to discuss prednisone Appt scheduled 06/15/24 with PCP * Arnold Ramsey - 06/12/2024 11:45 AM EST Patient has an appointment on 06/27/2024. Called stating her left knee and ankle is very swollen, new pain in the right knee. Patient is asking for a call back * Raman Harley RN - 05/18/2024 8:48 AM EST noted * Millicent Chapa MD - 05/17/2024 5:01 PM EST Called x 2 did not leave message as no identifying message * Yareli Pike LPN - 05/17/2024 1:18 PM EST Patient requesting to speak to the provider, She has a mild rash on her legs. This is secondary useissue in the right leg due to her fracture in December. She also has numbness and tingling in her left leg. * Raman Harley RN - 05/17/2024 12:48 PM EST Tried calling does not take blocked numbers * Vilma Hector - 05/17/2024 10:57 AM EST Patient call requires triage: Symptoms patient is presenting: knee pain - rash on bilat legs How long has patient had these symptoms?: associated with a fx tibia - 2 weeks For ALL patients calling to schedule any appointment (routine, sick visit, follow up, consult, etc.) in the outpatient setting please ask the following questions: Do you have fever of higher than 101, sore throat with difficulty swallowing or severe shortness ofbreath? no If YES to any of these above symptoms, send a message to triage and do not book. Red dot. If no, an audio or video visit should be booked. Have you had close contact with someone with Coronavirus in the last 14 days? no Have you traveled abroad? no Have you traveled recently to another state outside of [place], [place], [place], [place], [place], [place], [place]? no o If yes, did you quarantine for 14 days or have a negative covid test? no If yes to any of the above, patient is not to be scheduled in office until after 14 day quarantine or negative covid test. If pain or injury related was it due to an accident at work or from a motor vehicle accident? If yes, date of accident/Injury: No If yes, gather 3rd libertarian insurance information Third Libertarian Information: not applicable PCP: Millicent Chapa MD Payor: / No coverage found. documented in this encounter Plan of Treatment Upcoming Encounters Date Type Department Care Team (Late st Contact Info) Description 08/17/2024 9:30 AM EDT Office Visit Adult [facility] [address] [place] [phone] Fredrick Munoz PA [address] [place], [place] 09/27/2024 8:30 AM EDT Office Visit Adult [facility] [address] [place] [phone] Millicent Chapa MD [address] [place], [place] documented as of this encounter Visit Diagnoses Not on filedocumented in this encounter Care Teams Aircraft Pneudraulics Repairer Relationship Specialty Start Date End Date Millicent Chapa MD [address] [place], [place] PCP - General 07/21/06 documented as of this encounter
== END 2024-06-29 10:57 | disposition home or self-care (01) ==
LOC: HO.HOSX 10:56
PROVIDERS: PCP Internal Medicine; Visit Provider Physical Medicine & Rehabilitation
DX: M25.571 Pain in right ankle and joints of right foot (principal); M25.572 Pain in left ankle and joints of left foot
CPT/HCPCS: 73600

== ENCOUNTER 2024-06-30 09:07 | Outpatient (AMB) | payer BC, SELFPAY ==
--- NOTE | 2024-06-30 09:09 | A.OFFVIS_ITS ---
Vital Signs 06/30/24 09:20 Height 5 ft 1 in BMI Reason not done Patient refused/unable BP 112/64 Blood Pressure Location Lt brachial Position Sitting Respiration 16 Pulse 80 Pulse Source Pulse Oximeter Pulse Oximetry (%) 99 Oxygen Delivery Method Room Air Intake Visit Reasons: legs swelling Intake Note: Patient presents for legs swelling. Increasing swollen ankles and very painful. Both knees are very stiff, swollen and painful. Taking Motrin for pain. No appetite and nausea. Allergies gluten [Gluten] Allergy (Severe, Verified 06/30/24 09:19) PT HAS CELIAC DISEASE Sulfa (Sulfonamide Antibiotics) Allergy (Severe, Verified 06/30/24 09:19) LUPUS-LIKE benztropine [Cogentin] Allergy (Intermediate, Verified 06/30/24 09:19) Rash ciprofloxacin [From Cipro] Allergy (Intermediate, Verified 06/30/24 09:19) TENDONOPATHY/NEUROPATHY shellfish derived Allergy (Intermediate, Verified 06/30/24 09:19) Hives promethazine Allergy (Unknown, Verified 06/30/24 09:19) Unknown nitrofurantoin [From Macrodantin] Adverse Reaction (Severe, Verified 06/30/24 09:19) Drug induced Hep Mandelamine Allergy (Intermediate, Uncoded 06/29/24 11:19) Drug induced Hep QUINOLONES Allergy (Intermediate, Uncoded 06/29/24 11:19) Unknown Medication List - Last Reconciled 06/30/24 by Jennifer Burgess MD acetaminophen 650 mg (20.3 mL) PO Q4H PRN albuterol sulfate 90 mcg/actuation 2 puffs inhalation Q4-6H PRN celecoxib (Celebrex) 200 mg PO BID 90 days docusate sodium 100 mg PO BID hydroxychloroquine (Plaquenil) 200 mg PO DAILY lorazepam (Ativan) 0.5 mg PO TID PRN ondansetron 4 mg PO Q8H PRN polyethylene glycol 3350 17 grams PO DAILY PRN HPI Comments Details: Patient is a 63-year-old female with peripheral neuropathy, Raynaud's disease, mood disorder and polyarthralgias in the setting of a positive rheumatoid factor who is here today for follow up Interval History: Patient last seen 06/16/24 with me. At that time she presented for re-evaluation of polyarthralgias. Specifically she had a nondisplaced tibial plateau fracture of the left leg. And was complaining of worsening pain and fatigue. Based on her history it seemed that she had some element of autoimmune connective tissue disease based on her history of photosensitivity, Raynaud's, 2nd trimester losses oral ulcers and sicca symptoms. She was started on Plaquenil. 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 She also did not take the Celebrex because she has a history of sulfa allergy. She reports overall worsening fatigue and worsening joint pain involving her ankles with associated swelling. States that she visited a diamond driller helper but she was not helpful. Rheumatologic History: Patient has been seeing Rheumatology for several years. Does not have a formal diagnosis of autoimmune connective tissue disease or autoinflammatory disease however has had several encounters due to positive rheumatoid factor and joint pain. When she 1st saw Dr. Isak Sanchez as a new patient March 2022 she was complaining of bilateral knee pain. There was no evidence of inflammatory disease at that time. She did reports a history of hematuria which responded to prednisone but her CT of the abdomen showed a nonobstructive stone which was attributed to her hematuria. Plan at that time was to monitor off prednisolone and continue physical therapy for her knees. She followed up in May of 2022. Her C-reactive protein was normal as well as her ESR. Her rheumatoid factor was mildly elevated at 25 but her CCP was negative. She did not have any signs of inflammatory arthritis and the decision made to not pursue treatment at that time. Her next follow up was in September of 2022 and at that time she reported additional joints occasionally in her thumb CMC joints and her finger PIP joints without any associated swelling. She also complained of upper, lower back pain and lateral hip pain. She was concern that she may have an autoimmune disorder especially stating she gets extreme fatigue. At that time again there was no evidence of inflammatory arthritis and her joint complaints were attributed to polyarticular osteoarthritis. Current Rheumatology Medication(s): Plaquenil 200mg daily Celebrex 200mg bid [facility] Medical History (Updated 06/30/24 @ 15:08 by Jennifer Burgess MD) Methotrexate, alf, current use Undifferentiated connective tissue disease Rheumatoid factor positive Post-COVID chronic cough Neuropathy Asthma Diverticulosis Kidney stone Celiac sprue Surgical History H/O cystoscopy S/P cardiac cath (~07/2020) Hx of excision of mass (~1999) Family History Mother Cervical cancer Uterine cancer History of thyroid disorder Maternal Grandmother Diabetes Stroke Maternal Grandfather Diabetes Coronary artery disease Paternal Grandmother Uterine cancer Diabetes Stroke Paternal Grandfather Stroke Father Bladder cancer Social History Household Members: Spouse Household Members Other:: Son Alcohol intake: current Alcohol intake frequency: holidays/special occasions only Patient Tobacco Use Status: Never used Tobacco Advance Directives Date on File: 04/27/22 service: No 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[employer] Review of Systems Const Details: Review of Systems Constitutional: Denies fever, chills, weight loss ENT: Denies vision changes, eye pain or eye redness, dental caries, dry mouth GI: Denies nausea, vomiting, diarrhea, abdominal pain, change in BM Pulm: Denies SOB, ORELLANA, hemoptysis, wheezing Cards: Denies chest pain, palpitations Skin: Denies Raynaud's, rash, nail changes, photosensitivity, FRONT DESK RECEPTIONIST: Denies headaches, weakness, paresthesias, recurrent falls MSK: as per HPI All other systems reviewed and are unremarkable except noted above Physical Exam Vital Signs: Last Vital Signs Pulse 80 06/30/24 09:20 Resp 16 06/30/24 09:20 BP 112/64 06/30/24 09:20 Pulse Ox 99 06/30/24 09:20 Oxygen Delivery Method Room Air 06/30/24 09:20 Vital signs reviewed Physical Examination CONSTITUITIONAL Patient alert and cooperative. Well appearing and in no apparent painful distress HEENT Conjunctiva and sclera clear. ?Pupils equal round and reactive to light. ?No lymphadenopathy. ? CHEST/RESPIRATORY SYSTEM Normal respiratory effort and able to speak in complete sentences. ?Clear to auscultation bilaterally. ?No crackles, rales, rhonchi, wheezes heard. CARDIAC SYSTEM Regular rate and rhythm. ?S1 and S2 heard no murmurs. ?Radial pulses intact bila terally MSK Hands: ?Good transformer assembler strength bilaterally. No deformities noted. ?No synovitis noted to the MCPs, PIPs or DIPs. ?No tenderness to palpation of these joints. Wrists: ?Full range of motion at the wrists without pain. ?No tenderness to palpation or synovitis noted to the wrists. Elbows: Full range of motion without pain. No tenderness, weakness, swelling, increased warmth or erythema. Shoulders: Full range of motion without pain. No tenderness, weakness, swelling, increased warmth or erythema. Hips: Unable to evaluate as patient is in wheelchair Knees: ?Knees with degrees raise her motion secondary to pain. Tenderness to palpation of bilateral knee joints. Crepitus felt bilaterally. Ankles: Mild swelling to the lateral malleoli with tenderness to palpation. Full range of motion. Feet: ?Negative squeeze test. ?No tenderness to palpation or swelling of the MTPs. Tender points:?No tenderness to palpation of the bilateral trapezius, sup raspinatus, greater trochanters, anterior costochondral junctions, bilateral gluteal areas, bilateral suboccipital muscle insertions SKIN Skin intact without rashes. Results Reviewed Results Reviewed: Laboratory Tests 04/22/22 06/16/24 06/22/24 12:00 14:34 15:47 WBC 4.6 L RBC 3.59 L Hgb 10.7 L Hct 33.5 L Plt Count 245 ESR 34 H Sodium 143 Potassium 4.0 Chloride 110 H Carbon Dioxide 28 BUN 27 H Creatinine 0.65 AST 19 ALT 14 Alkaline Phosphatase 57 25-OH Vitamin D Total 75.8 IgA 120 Rheumatoid Factor 21.3 H Cycl Citrul Peptide IgG <16 AIDEN Screen NEGATIVE Proteinase 3 (PR3) Ab <1.0 Myeloperoxidase Ab <1.0 Endomysial IgA Ab Negative Laboratory Tests 06/16/24 06/22/24 14:34 15:47 WBC 4.6 L RBC 3.59 L Hgb 10.7 L Hct 33.5 L Plt Count 245 ESR 34 H Sodium 143 C-Reactive Protein 0.43 Laboratory Tests 06/16/24 06/22/24 14:34 15:47 Sodium 143 Potassium 4.0 Chloride 110 H Carbon Dioxide 28 BUN 27 H Creatinine 0.65 AST 19 ALT 14 Alkaline Phosphatase 57 C-Reactive Protein 0.43 XR Left Ankle 06/29/24 FINDINGS: The ankle mortise and subtalar joints are normal. There is no visible acute fracture, dislocation or subluxation seen. The ankle mortise and subtalar joints are normal. There is diffuse osteopenia with lateral malleolar soft tissue swelling. XR Right Ankle 06/29/24 FINDINGS: Moderate lateral malleolar soft tissue swelling. The ankle mortise and subtalar joints are normal. No visible acute fracture, dislocation or subluxation seen Assessment & Plan Assessment & Plan (1) Undifferentiated connective tissue disease: Comment: Dx 05/2024 Plaquenil started 05/2024. But patient did not take it due to concerns of her history of fluoroquinolone induced tendinopathy Code(s): M35.9 - Systemic involvement of connective tissue, unspecified Category: Medical Plan: #Undifferentiated connective tissue disease Patient is a 63-year-old female who presents with worsening fatigue and polyarthralgias. Patient still does not meet criteria for any autoimmune disease and her ESR and CRP have always been equivocal. 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 Did not start Plaquenil due to concerns of its closeness to quinolones and she has a history of tendinopathy after levofloxacin use. I am hesitant to start this patient on steroids because I want to see that immunosuppression helps with her symptoms. I note that steroids will calm her inflammation but I do not know if her inflammation is from an underlying autoimmune cause at this time. We will stop the Plaquenil and start Methotrexate Plan - Methotrexate 15mg PO weekly - Folic Acid 1mg daily - RTC 4 months - Labs prior to next visit: CBC, CRP, ESR, CMP (2) Methotrexate, longwall machine operator helper, current use: Code(s): Z79.631 - half-way (current) use of antimetabolite agent Category: Medical Plan: #Long-term Current Use of Methotrexate Discussed with patient the benefits and risks of methotrexate for managing their rheumatic condition Benefits include reduced pain, reduced mortality, maintenance of remission and reduction of flares Risks include oral ulcers, photosensitivity, hepatotoxicity, hematologic toxicity, pneumonitis, flu-like symptoms (especially day after administration), nodulosis, lymphomas ? Limit alcohol and avoid Bactrim ? Monitoring: ?CBC, BMP, LFTs every 3-4 months and hepatitis serologies as needed Plan I spent 35 minutes reviewing the record and labs, taking a history, examining the patient, discussing the treatment plan and documenting in the medical record Orders: Orders Comprehensive Met. Panel 4 Months M35.9 - Systemic involvement of connective tissue, unspecified C Reactive Protein 4 Months M35.9 - Systemic involvement of connective tissue, unspecified T Spot TB 4 Months M35.9 - Systemic involvement of connective tissue, unspecified Complete Blood Count Auto Diff 4 Months M35.9 - Systemic involvement of connective tissue, unspecified Erythrocyte Sedimentation Rate 4 Months M35.9 - Systemic involvement of connective tissue, unspecified Hepatitis A,B,C Profile 4 Months M35.9 - Systemic involvement of connective tissue, unspecified Medications: New folic acid 1 mg PO DAILY 90 tabs 1RF M35.9 - Systemic involvement of conn ective tissue, unspecified methotrexate sodium 15 mg (6 x 2.5 mg) PO QWEEK 90 days 78 tabs 1RF M35.9 - Systemic involvement of connective tissue, unspecified Discontinued hydroxychloroquine (Plaquenil) Discontinued Reason: Doctor's Order 200 mg PO DAILY 90 tabs 1RF M35.9 - Systemic involvement of connective tissue, unspecified celecoxib (Celebrex) Discontinued Reason: Doctor's Order 200 mg PO BID 90 days 180 caps 1RF M35.9 - Systemic involvement of connective tissue, unspecified Coding Level of Care Code Est Pt Level 4 (60574) Complex EM visit Add On G2211 Diagnoses Undifferentiated connective tissue disease M35.9 Methotrexate, alf, current use Z79.631
[2024-06-30 09:20] VITALS: BP 112/64; PULSE 80; RESP 16; O2SAT 99
--- OUTSIDE RECORDS SUMMARY | 2024-06-30 09:33 | XMS_ITS | Clinical Summary ---
Author Organization [facility] [address] Address [address] [place] [address] Phone Care Team Providers Care Manager Software Development Name Role Phone Millicent Chapa MD Primary [...] Department Care Team Description 06/20/2024 Telephone Adult [address] [phone] Millicent Subramanian MD Pain 06/15/2024 10:00 AM EST Office Visit Adult [address] [phone] Millicent Subramanian MD Closed fracture of left tibial plateau with delayed healing, subsequent encounter (Primary Dx); Chronic pain syndrome; Osteoporosis, unspecified osteoporosis type, unspecified pathological fracture presence 05/17/[address] [phone] Millicent Subramanian MD Knee Pain 05/16/2024 Telephone Adult [address] [phone] Millicent Subramanian MD from Last 3 Months Immunizations Name Administration Dates Next Due Influenza Quadravalent, MDCK , 0.5ml, with preservative (Flucelvax) 6mo and older 04/14/2021 [employer]/Impliant SARS-CoV-2 COVID -19, vector-nr, rS-Ad26, preservative free 03/27/2021 PPD Test 03/17/2017,02/18/2010 Surgical History Surgery Date Site/Laterality Comments VAGINAL DELIVERY PROCEDURE: HI VAGINAL DELIVERY ONLY; COMMENT: x3 Medical History Medical History Date Comments Celiac sprue DX:Celiac sprue Anxiety DX:Anxiety Weight loss DX:Weight loss Dermatitis herpetiformis DX:Derm atitis herpetiformis; 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 Diverticulitis 09/10/2018 DX:Diverticuliti s Asthma 03/31/2018 Family History Medical History Relation Name Comments Diabetes Maternal Grandfather CAD Diabetes Maternal Grandmother cholest ekena, stroke Other cancer Mother cervical and ut [...] 9:30 AM EDT Office Visit Adult Medicine [facility] [address] [place] [phone] Fredrick Munoz PA [address] [place] [address] 09/27/2024 8:30 AM EDT Office Visit [facility] [address] [place] [phone] Millicent Chapa MD [address] [place] [address] Health Maintenance Due Date Last Done Comments [...] to have osteoporosis by WHO criteria. The [facility] Department of Internal Medicine recommends using [...] alternative screening schedule based on jana Mahmood., [facility] June 18, 2011 for patients with [...] to have osteoporosis by WHO criteria. The [facility] Department of Internal Medicine recommendsusing National [...] 15 years Millicent Chapa MD IMG DXA HI OCEDURES * Hepatitis C Screening (04/03/2019) [facility] Hepatitis C Screening abstracted Historical Provider [facility] * Pap Smear (12/29/2017) [facility] Pap smear abstracted, no interpretation Historical Provider [facility] E * Colonoscopy (10/26/2014) Pathologist [facility] Colonoscopy abstracted, no interpretation Anatomical Region Laterality Modality Other Historical Provider [facility] E * HIV Screening (02/03/2011) [facility] HIV Screening abstracted Historical Provider [facility] from Last 3 Months or Most Recently Relevant to Health Maintenance Care Teams Manager Software Development Relationship Specialty Start Date End Date Millicent Chapa MD [address] [place] [address] PCP - General 07/21/06
--- OUTSIDE RECORDS SUMMARY | 2024-06-30 09:34 | XMS_ITS | Encounter Summary ---
Author Organization [facility] Address [address] [place] [address] Care Team Providers Care Safety Security Officer Name Role Phone Millicent Chapa MD Primary Care Prov ider Encounter Details Date Type Department Care Team (Late Contact Info) Description 05/16/2024 Telephone Adult [address] [phone] Millicent Chapa MD [address] [place] [address] Social History Tobacco Use Types Packs/Day Years [...] 08/17/2024 9:30 AM EDT Office Visit Adult [address] [phone] Fredrick Munoz PA [address] [place], [place] 09/27/2024 8:30 AM EDT Office Visit [address] [phone] Millicent Chapa MD [address] [place] [address] documented as of this encounter Visit Diagnoses Not on filedocumented in this encounter Care Teams Safety Security Officer Relationship Specialty Start Date End Date Millicent Chapa MD [address] [place] [address] PCP - General 07/21/06 documented as of this encounter
--- OUTSIDE RECORDS SUMMARY | 2024-06-30 09:34 | XMS_ITS | Encounter Summary ---
Author Organization [facility] Address [address] [place] [address] Care Team Providers Care Platen Press Feeder Name Role Phone Millicent Chapa MD Primary Care Prov ider Reason for Referral * Consultation (Routine) - Pending Review Specialty Diagnoses / Procedures Referred By Lillian arroyo Referred To Contact Behavioral Health Diagnoses Chronic pain syndrome Millicent Chapa MD [address] [place], [place] Referral ID Status Reason Start Date Expiration Date Visits Requested Visits Authorized [id number] Pending Review Specialty Services Required 06/15/2024 06/15/2025 1 1 Reason for Visit * Reason Comments Knee Injury Fatigue Encounter Details Date Type Department Care Team (Late st Contact Info) Description 06/15/2024 10:00 AM EST Office Visit Adult Medicine [facility] [address] [place] [phone] Millicent Chapa MD [address] [place], [place] Closed fracture of left tibial plateau [...] prednisone for now She will see the rack room worker she has had a persistently elevated rheumatoid [...] AM EDT Office Visit Adult Medicine [facility] [address] [place] [phone] Fredrick Munoz PA [address] [place] [address] 09/27/2024 8:30 AM EDT Office Visit Adult Medicine [facility] [address] [place] [phone] Millicent Chapa MD [address] [place] [address] Scheduled Referrals Name Type Priority Associated Diagnoses Order Schedule Ambulatory referral to Behavioral Health Outpatient Referral Routine Chronic pain syndrome 1 Occurrences starting 06/15/2024 until 06/15/2025 documented as of this encounter Visit Diagnoses Diagnosis Closed fracture of left tibial plateau with delayed healing, subsequent encounter- Primary Chronic pain syndrome Osteoporosis, unspecified osteoporosis type, unspecified pathological fracture presence documented in this encounter Care Teams Platen Press Feeder Relationship Specialty Start Date End Date Millicent Chapa MD [address] [place] [address] PCP - General 07/21/06 documented as of this encounter
--- OUTSIDE RECORDS SUMMARY | 2024-06-30 09:34 | XMS_ITS | Encounter Summary ---
Author Organization [facility] Address [address] [place] [address] Care Team Providers Care Physician Locums Urgent Care Name Role Phone Millicent Chpaa MD Primary Care Prov ider Reason for Visit * Reason Onset Date Comments Knee Pain 05/17/2024 Encounter Details Date Type Department Care Team (Late st Contact Info) Description 05/17/2024 Telephone Adult Medicine - [place] [address] [place] [phone] Millicent Chapa MD [address] [place] [address] Knee Pain Social History Tobacco Use Types [...] traveled recently to another state outside of [place], [place], [place], [place], [place], [place], [place]? no o If yes, did you [...] of accident/Injury: No If yes, gather 3rd republican insurance information Third Constitution Party Information: not applicable PCP: Millicent Chapa MD Payor: / No coverage found. documented in this encounter Plan of Treatment Upcoming Encounters Date Type Department Care Team (Late st Contact Info) Description 08/17/2024 9:30 AM EDT Office Visit Adult [facility] [address] [place] [phone] Fredrick Munoz PA [address] [place], [place] 09/27/2024 8:30 AM EDT Office Visit Adult [facility] [address] [place] [phone] Millicent Chapa MD [address] [place], [place] documented as of this encounter Visit Diagnoses Not on filedocumented in this encounter Care Teams Physician Locums Urgent Care Relationship Specialty Start Date End Date Millicent Chapa MD [address] [place], [place] PCP - General 07/21/06 documented as of this encounter
--- OUTSIDE RECORDS SUMMARY | 2024-06-30 09:34 | XMS_ITS | Encounter Summary ---
Author Organization [facility] Address [address] [place] [address] Care Team Providers Care Campus Safety Officer Name Role Phone Millicent Chapa MD Primary Care Prov ider Reason for Visit * Reason Onset Date Comments Pain 06/20/2024 Encounter Details Date Type Department Care Team (Late st Contact Info) Description 06/20/2024 Telephone Adult Medicine - [place] [address] [place] [phone] Millicent Chapa MD [address] [place] [address] Pain Social History Tobacco Use Types Packs/Day [...] to pt she agrees to do what ip litigation paralegal says , pt states that she is [...] her. Yes she should try what the ip litigation paralegal is recommending at least 3months and lets see what happens * Millicent Chapa MD - 06/20/2024 5:06 PM EST Wow. I do know what to think. I think she should choose 1 specialist and go with what ever they say. My suggestion is to go with the ip litigation paralegal. We did talk about Plaquenil in the [...] somewhat active for the knee Has had sap trainer PT since knee buckled at PT 2 [...] Needs guidance on pain control. Labs from [facility] Sed rate mildly elevated which is new. [...] Office Visit Adult Medicine - [place] [address] [place] [phone] Fredrick Munoz PA [address] [place], [place] 09/27/2024 8:30 AM EDT Office Visit [facility] [address] [place] [phone] Millicent Chapa MD [address] [place], [place] documented as of this encounter Visit Diagnoses Not on filedocumented in this encounter Care Teams Campus Safety Officer Relationship Specialty Start Date End Date Millicent Chapa MD [address] [place], [place] PCP - General 07/21/06 documented as of this encounter
== END 2024-06-30 09:52 | disposition home or self-care (01) ==
PROVIDERS: PCP Internal Medicine; Visit Provider Student in an Organized Health Care Education/Training Program
DX: M35.89 Other specified systemic involvement of connective tissue (principal); Z79.631 Long term (current) use of antimetabolite agent
CPT/HCPCS: 99214

== ENCOUNTER 2024-07-03 12:09 | Emergency (ER) | payer BC, SELFPAY ==
--- NOTE | ~2024-07-03 | US_ITS ---
EXAMINATION: US TRIPLEX LOWER EXTREMITY, BILATERAL CLINICAL INFORMATION: Lower extremity swelling bilaterally. COMPARISON: Several priors, most recently 06/22/2024. TECHNIQUE: Color-flow triplex imaging with spectral analysis and compression Doppler were performed on the bilateral lower extremities. FINDINGS: Respiratory variation, normal compression and augmented flow are noted throughout the bilateral lower extremities. The visualized common femoral vein, superficial femoral vein, profunda femoral vein, popliteal vein and [place] posterior tibial venous segments show no evidence of deep venous thrombosis bilaterally. The peroneal veins could not be well visualized. There is no Lyons's cyst. US/US venous duplex LE BI IMPRESSION: No evidence of deep venous thrombosis involving the bilateral lower extremities. Electronically signed by: Paras Rosas MD 07/03/2024 02:58 PM ERASMO
[2024-07-03 12:52] VITALS: BP 122/73; PULSE 99; RESP 18; TEMP 36.6; O2SAT 100; BMI 19.8
--- NOTE | 2024-07-03 12:52 | ED_ITS ---
HPI - General Adult General Chief complaint: Extremity Injury, Lower Stated complaint: Bilateral leg numbness, cold to touch Time Seen by Provider: 07/03/24 17:22 Related Data Home Medications ?Medication ?Instructions ?Recorded ?Confirmed albuterol sulfate 90 mcg/actuation 2 puff inhalation Q4-6H PRN 04/07/22 06/30/24 aerosol inhaler SOB/Wheezing Previous Rx's ?Medication ?Instructions ?Recorded ondansetron 4 mg disintegrating 4 mg PO Q8H PRN nausea and 04/25/22 tablet vomiting #7 tabs acetaminophen 650 mg/20.3 mL oral 650 mg (20.3 mL) PO Q4H PRN 02/01/24 solution moderate pain #0 mL docusate sodium 100 mg capsule 100 mg PO BID #0 caps 02/01/24 lorazepam 0.5 mg tablet (Ativan) 0.5 mg PO TID PRN anxiety #7 tabs 02/01/24 polyethylene glycol 3350 17 gram 17 g PO DAILY PRN constipation #0 02/01/24 oral powder packet ea folic acid 1 mg tablet 1 mg PO DAILY #90 tabs 06/30/24 methotrexate sodium 2.5 mg tablet 15 mg (6 x 2.5 mg) PO QWEEK 90 06/30/24 days #78 tabs Allergies Allergy/AdvReac Type Severity Reaction Status Date / Time gluten [Gluten] Allergy Severe PT HAS Verified 07/03/24 12:54 CELIAC DISEASE Sulfa (Sulfonamide Allergy Severe LUPUS-LIKE Verified 07/03/24 12:54 Antibiotics) benztropine [Cogentin] Allergy Intermediate Rash Verified 07/03/24 12:54 ciprofloxacin [From Cipro] Allergy Intermediate TENDONOPATH Verified 07/03/24 12:54 Y/NEUROPATH Y shellfish derived Allergy Intermediate Hives Verified 07/03/24 12:54 promethazine Allergy Unknown Unknown Verified 07/03/24 12:54 nitrofurantoin AdvReac Severe Drug Verified 07/03/24 12:54 [From Macrodantin] induced Hep Mandelamine Allergy Intermediate Drug Uncoded 07/03/24 12:54 induced Hep QUINOLONES Allergy Intermediate Unknown Uncoded 07/03/24 12:54 PMFSH Past Medical History Medical History Methotrexate, shelter, current use Undifferentiated connective tissue disease Rheumatoid factor positive Post-COVID chronic cough Neuropathy Asthma Diverticulosis Kidney stone Celiac sprue Surgical History H/O cystoscopy S/P cardiac cath (~07/2020) Hx of excision of mass (~1999) Family History Family History Mother Cervical cancer Uterine cancer History of thyroid disorder Maternal Grandmother Diabetes Stroke Maternal Grandfather Diabetes Coronary artery disease Paternal Grandmother Uterine cancer Diabetes Stroke Paternal Grandfather Stroke Father Bladder cancer Social History Social History Household Members: Spouse Household Members Other:: Son Alcohol intake: current Alcohol intake frequency: does not drink Patient Tobacco Use Status: Never used Tobacco Smoked in Last 30 Days: No Use of substances other than those prescribed or required for medical reasons: No Advance Directives: Yes Advance Directives on File: Yes Advance Directives Date on File: 04/27/22 Do you have a plan to hurt others: No Plan service: No 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 Full HPI, ROS and PE to be performed by primary ED provider. 63 year old female with pmhx significant for neuropathy, asthma, diverticulosis, renal stones, celiac sprue, chronic knee pain presents to the ED today for presenting to the ED c/o worsening knee/ankle/foot pain bilaterally > left, w/swelling. Has been unable to ambulate due to pain. Has been seen in our ED recently for same PE: in wheelchair, b/l LE swelling Plan: Labs, US Medications Administered Discontinued Medications Generic Name Dose Route Start Last Admin Trade Name Freq PRN Reason Stop Dose Admin Hydromorphone HCl 0.25 mg 07/03/24 20:42 07/03/24 21:01 Hydromorphone Hcl 0.5 Mg/0.5 Ml Syringe IVPUSH 07/03/24 20:43 0.25 mg ONCE ONE Administration Protocol Sodium Chloride 500 mls @ 999 mls/hr 07/03/24 18:15 07/03/24 20:03 Ns IV 07/03/24 18:45 Infused .Q31M MCKAY Infusion Ketorolac Tromethamine 15 mg 07/03/24 18:10 07/03/24 19:08 Ketorolac Tromethamine 15 Mg/Ml Vial IVPUSH 07/03/24 18:11 15 mg ONCE ONE Administration Lorazepam 1 mg 07/03/24 17:53 07/03/24 18:04 Lorazepam 1 Mg Tablet PO 07/03/24 17:54 1 mg ONCE ONE Administration Ondansetron HCl 4 mg 07/03/24 20:42 07/03/24 21:01 Ondansetron Hcl 4 Mg/2 Ml Vial IVPUSH 07/03/24 20:43 4 mg ONCE ONE Administration Medical Decision Making Lab Data 07/03/24 15:25 07/03/24 15:25 Labs: Lab Results 07/03/24 07/03/24 Range/Units 15:25 20:01 WBC 5.5 (4.8-10.8) X10*3/uL RBC 3.94 L (4.20-5.50) X10*6/uL Hgb 11.7 L (12.0-16.0) g/dl Hct 36.2 L (37.0-47.0) % MCV 91.9 (80.0-98.0) fL MCH 29.7 (27.0-33.0) pg MCHC 32.3 (31.0-35.0) g/dl RDW 12.6 (11.0-16.0) % Plt Count 272 (160-400) X10*3/uL MPV 10.0 (9.4-12.3) fL Immature Gran % (Auto) 0.2 (0.0-0.4) % Neut % (Auto) 67.2 (45-73) % Lymph % (Auto) 21.1 (20-40) % [place] % (Auto) 7.3 (2-11) % Eos % (Auto) 3.1 (0-4) % Baso % (Auto) 1.1 (0-2) % Lymph # (Auto) 1.2 (1.2-4.9) X10*3/uL [place] # (Auto) 0.4 (0.1-1.2) X10*3/uL Eos # (Auto) 0.2 (0.0-0.4) X10*3/uL Baso # (Auto) 0.1 (0.0-0.2) X10*3/uL Abs Immat Gran (auto) 0.01 (0.00-0.03) X10*3/uL Absolute Neuts (auto) 3.7 (2.0-8.3) x10*3/uL Absolute Nucleated RBC 0.000 (0.0-0.012) X10*3/uL Nucleated RBC % (auto) 0.0 (0.0-0.2) /100WBC ESR 19 (0-20) MM/HR PT 11.1 (10.9-12.4) SEC INR 1.0 (0.9-1.1) Sodium 142 (135-145) mmol/L Potassium 4.2 (3.3-5.1) mmol/L Chloride 106 (96-108) mmol/L Carbon Dioxide 31 H (22-29) mmol/L Anion Gap 9 L (12-20) BUN 26 H (9-16) mg/dL Creatinine 0.66 (0.5-1.4) mg/dL Estim Creat Clear Calc 64.7 Estimated GFR > 60 Random Glucose 97 (60-115) mg/dL Calcium 10.0 D (8.4-10.2) mg/dL Magnesium 2.5 (1.6-2.6) mg/dL Total Bilirubin 0.2 (0.0-1.0) mg/dL Direct Bilirubin < 0.2 (0.0-0.5) mg/dL AST 22 (5-31) U/L ALT 11 (0-31) U/L Alkaline Phosphatase 54 (39-117) U/L Total Creatine Kinase 35 (26-140) U/L C-Reactive Protein < 0.04 (< or = 0.50) mg/dL B-Natriuretic Peptide < 10 (<100) pg/mL Total Protein 7.6 (6.5-8.0) g/dL Albumin 4.5 (3.5-5.0) g/dL Urine Color Yellow Urine Appearance Clear Urine pH 6.0 (5.0-9.0) Ur Specific [place] 1.020 (1.005-1.025) Urine Protein Negative (Neg-Trace) mg/dL Urine Glucose (UA) Negative (Negative) mg/dL Urine Ketones Negative (Negative) mg/dL Urine Blood Negative (Negative) Urine Nitrite Negative (Negative) Ur Leukocyte Esterase Trace H (Negative) Urine RBC 0-2 (0-2) /HPF Urine WBC 0-5 (0-5) /HPF Ur Squamous Epith Cells 0-2 (0-2) /HPF Urine Bacteria None Seen (None Seen) Hyaline Casts 0-2 (0-2) /LPF Discharge Plan Discharge Clinical Impression: Knee pain, bilateral Patient Disposition: Home, Self-Care Instructions: Knee Pain (ED) Prescriptions: No Action ondansetron 4 mg tablet,disintegrating 4 mg PO Q8H PRN (Reason: nausea and vomiting) Qty: 7 0RF docusate sodium 100 mg Capsule 100 mg PO BID Qty: 0 0RF acetaminophen 650 mg/20.3 mL Solution 650 mg PO Q4H PRN (Reason: moderate pain) Qty: 0 0RF polyethylene glycol 3350 17 gram Powder In Packet 17 g PO DAILY PRN (Reason: constipation) Qty: 0 0RF lorazepam [Ativan] 0.5 mg tablet 0.5 mg PO TID PRN (Reason: anxiety) Qty: 7 0RF albuterol sulfate 90 mcg/actuation HFA aerosol inhaler 2 puff inhalation Q4-6H PRN (Reason: SOB/Wheezing) methotrexate sodium 2.5 mg tablet 15 mg PO QWEEK 90 Days Qty: 78 1RF folic acid 1 mg tablet 1 mg PO DAILY Qty: 90 1RF Referrals: Millicent Chapa MD [Primary Care Provider] - 07/05/24 Print Language: Occitan
[2024-07-03 15:29] LABS: MANUAL DIFF FLAG NO
[2024-07-03 15:31] LABS: Basophils Absolute Auto 0.1 X10*3/uL (0.0-0.2); Basophils Percent Auto 1.1 % (0-2); Eosinophils Absolute Auto 0.2 X10*3/uL (0.0-0.4); Eosinophils Percent Auto 3.1 % (0-4); Hematocrit 36.2 % (37.0-47.0); Hemoglobin 11.7 g/dl (12.0-16.0); Imm Gran Abs Auto 0.01 X10*3/uL (0.00-0.03); Imm Gran Pct Auto 0.2 % (0.0-0.4); Lymphocytes Absolute Auto 1.2 X10*3/uL (1.2-4.9); Lymphocytes Percent Auto 21.1 % (20-40); Mean Corpuscular HGB Conc 32.3 g/dl (31.0-35.0); Mean Corpuscular Hemoglobin 29.7 pg (27.0-33.0); Mean Corpuscular Volume 91.9 fL (80.0-98.0); Monocytes Absolute Auto 0.4 X10*3/uL (0.1-1.2); Monocytes Percent Auto 7.3 % (2-11); Neutrophils Absolute Auto 3.7 x10*3/uL (2.0-8.3); Neutrophils Percent Auto 67.2 % (45-73); Platelet Count 272 X10*3/uL (160-400); Red Blood Count 3.94 X10*6/uL (4.20-5.50); Red Cell Distribution Width 12.6 % (11.0-16.0); White Blood Count 5.5 X10*3/uL (4.8-10.8)
[2024-07-03 15:39] LABS: Prothrombin Time 11.1 SEC (10.9-12.4)
[2024-07-03 15:49] LABS: Alanine Aminotransferase 11 U/L (0-31); Albumin Level 4.5 g/dL (3.5-5.0); Anion Gap 9 (12-20); Aspartate Amino Transferase 22 U/L (5-31); Bilirubin Direct < 0.2 mg/dL (0.0-0.5); Bilirubin Total 0.2 mg/dL (0.0-1.0); Blood Urea Nitrogen 26 mg/dL (9-16); Carbon Dioxide 31 mmol/L (22-29); Chloride 106 mmol/L (96-108); Creatinine Clr Calc Pharmacy 64.7; Estimated Glomerular Filt Rate > 60; Glucose Random 97 mg/dL (60-115); Magnesium 2.5 mg/dL (1.6-2.6); Potassium 4.2 mmol/L (3.3-5.1); Sodium 142 mmol/L (135-145); Total Protein 7.6 g/dL (6.5-8.0)
[2024-07-03 15:51] LABS: B Type Natriuretic Peptide < 10 pg/mL (<100)
[2024-07-03 16:40] LABS: Alkaline Phosphatase 54 U/L (39-117); C Reactive Protein < 0.04 mg/dL (< or = 0.50)
[2024-07-03 17:06] LABS: Erythrocyte Sedimentation Rate 19 MM/HR (0-20)
--- NOTE | 2024-07-03 17:22 | MHC.EDTECH ---
pt brought to ED 12 from
[2024-07-03 17:24] VITALS: BP 123/65; PULSE 76; RESP 18; TEMP 36.7; O2SAT 100
[2024-07-03] MEDS: LORazepam 1 MG TABLET PO (18:04)
--- NOTE | 2024-07-03 18:10 | ED_ITS ---
HPI - Extremity Injury (Lower) General Chief Complaint: Extremity Injury, Lower Stated Complaint: Bilateral leg numbness, cold to touch Time Seen by Provider: 07/03/24 17:22 History of Present Illness HPI Narrative: Patient is a 63-year-old female with a history of having tibial plateau fracture in December. Currently being treated conservatively. Patient complaining of bilateral lower extremity edema. Having pain in the joints. Had MRIs for the joints prior. Patient denies any fever and chills but also have pain over the MCP joint of both hands. Also pain in the wrist. Now the pain is also in the right knee. Unable to ambulate well. 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 Patient has been started on methotrexate. Also on NSAIDs. Related Data Home Medications ?Medication ?Instructions ?Recorded ?Confirmed albuterol sulfate 90 mcg/actuation 2 puff inhalation Q4-6H PRN 04/07/22 06/30/24 aerosol inhaler SOB/Wheezing Previous Rx's ?Medication ?Instructions ?Recorded ondansetron 4 mg disintegrating 4 mg PO Q8H PRN nausea and 04/25/22 tablet vomiting #7 tabs acetaminophen 650 mg/20.3 mL oral 650 mg (20.3 mL) PO Q4H PRN 02/01/24 solution moderate pain #0 mL docusate sodium 100 mg capsule 100 mg PO BID #0 caps 02/01/24 lorazepam 0.5 mg tablet (Ativan) 0.5 mg PO TID PRN anxiety #7 tabs 02/01/24 polyethylene glycol 3350 17 gram 17 g PO DAILY PRN constipation #0 02/01/24 oral powder packet ea folic acid 1 mg tablet 1 mg PO DAILY #90 tabs 06/30/24 methotrexate sodium 2.5 mg tablet 15 mg (6 x 2.5 mg) PO QWEEK 90 06/30/24 days #78 tabs Allergies Allergy/AdvReac Type Severity Reaction Status Date / Time gluten [Gluten] Allergy Severe PT HAS Verified 07/03/24 12:54 CELIAC DISEASE Sulfa (Sulfonamide Allergy Severe LUPUS-LIKE Verified 07/03/24 12:54 Antibiotics) benztropine [Cogentin] Allergy Intermediate Rash Verified 07/03/24 12:54 ciprofloxacin [From Cipro] Allergy Intermediate TENDONOPATH Verified 07/03/24 12:54 Y/NEUROPATH Y shellfish derived Allergy Intermediate Hives Verified 07/03/24 12:54 promethazine Allergy Unknown Unknown Verified 07/03/24 12:54 nitrofurantoin AdvReac Severe Drug Verified 07/03/24 12:54 [From Macrodantin] induced Hep Mandelamine Allergy Intermediate Drug Uncoded 07/03/24 12:54 induced Hep QUINOLONES Allergy Intermediate Unknown Uncoded 07/03/24 12:54 Review of Systems 2 Review of Systems: No fever no chills no chest pain or shortness of breath Yes all other systems are reviewed and are negative [facility] Past Medical History Attestation statement: The following information was validated with the patient. Medical History Methotrexate, vp ancillary, current use Undifferentiated connective tissue disease Rheumatoid factor positive Post-COVID chronic cough Neuropathy Asthma Diverticulosis Kidney stone Celiac sprue Surgical History H/O cystoscopy S/P cardiac cath (~07/2020) Hx of excision of mass (~1999) Family History Family History Mother Cervical cancer Uterine cancer History of thyroid disorder Maternal Grandmother Diabetes Stroke Maternal Grandfather Diabetes Coronary artery disease Paternal Grandmother Uterine cancer Diabetes Stroke Paternal Grandfather Stroke Father Bladder cancer Social History Social History Household Members: Spouse Household Members Other:: Son Alcohol intake: current Alcohol intake frequency: does not drink Patient Tobacco Use Status: Never used Tobacco Smoked in Last 30 Days: No Use of substances other than those prescribed or required for medical reasons: No Advance Directives: Yes Advance Directives on File: Yes Advance Directives Date on File: 04/27/22 Do you have a plan to hurt others: No Plan service: No 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 Oriented X3. No acute distress. Eyes: Pupils equal, round and reactive to light. ENT: Pharynx normal. Neck: Normal inspection. Neck supple. No lymph nodes noted. No crepitus CVS: Normal heart rate and rhythm. Pulses normal. Normal S1 and S2 Respiratory: No respiratory distress. Breath sounds normal. No Wheezing. No rales Abdomen: Soft and nontender. No rigidity. No distention. good BS x4 Skin: Skin warm and dry. Normal skin color. Normal skin turgor. Extremities: No lower extremity edema. Neurovascular intact to all extremities. No Lacerations. No Rash. Examination of the right knee showed no joint effusion. There is no tenderness on palpation medial lateral collateral ligament. Range of motion grossly intact. Distal pulses intact skin intact sensation intact. Examination of the left knee showed no gross joint effusion. There is no tenderness on palpation medial lateral collateral ligament. Range of motion slightly limited but at least there is over 100 degrees. There is good distal pulses. There is good sensation. Skin is intact. Neuro: Oriented X 3. No motor deficit. No sensory deficit. Moving all extermities. No slurred speech Medications Administered Discontinued Medications Generic Name Dose Route Start Last Admin Trade Name Freq PRN Reason Stop Dose Admin Hydromorphone HCl 0.25 mg 07/03/24 20:42 07/03/24 21:01 Hydromorphone Hcl 0.5 Mg/0.5 Ml Syringe IVPUSH 07/03/24 20:43 0.25 mg ONCE ONE Administration Protocol Sodium Chloride 500 mls @ 999 mls/hr 07/03/24 18:15 07/03/24 20:03 Ns IV 07/03/24 18:45 Infused .Q31M MCKAY Infusion Ketorolac Tromethamine 15 mg 07/03/24 18:10 07/03/24 19:08 Ketorolac Tromethamine 15 Mg/Ml Vial IVPUSH 07/03/24 18:11 15 mg ONCE ONE Administration Lorazepam 1 mg 07/03/24 17:53 07/03/24 18:04 Lorazepam 1 Mg Tablet PO 07/03/24 17:54 1 mg ONCE ONE Administration Ondansetron HCl 4 mg 07/03/24 20:42 07/03/24 21:01 Ondansetron Hcl 4 Mg/2 Ml Vial IVPUSH 07/03/24 20:43 4 mg ONCE ONE Administration Medical Decision Making Medical Decision Making [facility] Narrative: Patient have diffuse pain in both upper and lower extremity. Question etiology. Doppler of the bilateral lower extremity was grossly negative for any acute evidence of DVT. Previously seen for the same. Had D-dimer which was also negative. Patient's risk for DVT is low. Patient has swelling to lower extremity but they are bilateral. Patient C-reactive protein and ESR are both negative. No gross signs of systemic inflammation. CPK is 35 no signs of rhabdo. Patient's LFTs are normal. BNP is normal no signs of congestive heart failure. Patient's urine showed no gross infection. Magnesium is normal. White count is normal. Hemoglobin is 11.7 which is baseline no gross signs of anemia. Will discharge patient home. Close follow-up on an outpatient basis advised. Differential Diagnosis Differential Diagnoses: The differential diagnosis associated with the presentation includes Arthritis, DVT, urinary tract infection Admission/Observation Consideration of admission/observation: Escalation of care including admission/observation considered Lab Data [facility] Lab Attestation statement: I reviewed the patient's lab results. 07/03/24 15:25 07/03/24 15:25 Labs: Lab Results 07/03/24 07/03/24 Range/Units 15:25 20:01 WBC 5.5 (4.8-10.8) X10*3/uL RBC 3.94 L (4.20-5.50) X10*6/uL Hgb 11.7 L (12.0-16.0) g/dl Hct 36.2 L (37.0-47.0) % MCV 91.9 (80.0-98.0) fL MCH 29.7 (27.0-33.0) pg MCHC 32.3 (31.0-35.0) g/dl RDW 12.6 (11.0-16.0) % Plt Count 272 (160-400) X10*3/uL MPV 10.0 (9.4-12.3) fL Immature Gran % (Auto) 0.2 (0.0-0.4) % Neut % (Auto) 67.2 (45-73) % Lymph % (Auto) 21.1 (20-40) % [place] % (Auto) 7.3 (2-11) % Eos % (Auto) 3.1 (0-4) % Baso % (Auto) 1.1 (0-2) % Lymph # (Auto) 1.2 (1.2-4.9) X10*3/uL [place] # (Auto) 0.4 (0.1-1.2) X10*3/uL Eos # (Auto) 0.2 (0.0-0.4) X10*3/uL Baso # (Auto) 0.1 (0.0-0.2) X10*3/uL Abs Immat Gran (auto) 0.01 (0.00-0.03) X10*3/uL Absolute Neuts (auto) 3.7 (2.0-8.3) x10*3/uL Absolute Nucleated RBC 0.000 (0.0-0.012) X10*3/uL Nucleated RBC % (auto) 0.0 (0.0-0.2) /100WBC ESR 19 (0-20) MM/HR PT 11.1 (10.9-12.4) SEC INR 1.0 (0.9-1.1) Sodium 142 (135-145) mmol/L Potassium 4.2 (3.3-5.1) mmol/L Chloride 106 (96-108) mmol/L Carbon Dioxide 31 H (22-29) mmol/L Anion Gap 9 L (12-20) BUN 26 H (9-16) mg/dL Creatinine 0.66 (0.5-1.4) mg/dL Estim Creat Clear Calc 64.7 Estimated GFR > 60 Random Glucose 97 (60-115) mg/dL Calcium 10.0 D (8.4-10.2) mg/dL Magnesium 2.5 (1.6-2.6) mg/dL Total Bilirubin 0.2 (0.0-1.0) mg/dL Direct Bilirubin < 0.2 (0.0-0.5) mg/dL AST 22 (5-31) U/L ALT 11 (0-31) U/L Alkaline Phosphatase 54 (39-117) U/L Total Creatine Kinase 35 (26-140) U/L C-Reactive Protein < 0.04 (< or = 0.50) mg/dL B-Natriuretic Peptide < 10 (<100) pg/mL Total Protein 7.6 (6.5-8.0) g/dL Albumin 4.5 (3.5-5.0) g/dL Urine Color Yellow Urine Appearance Clear Urine pH 6.0 (5.0-9.0) Ur Specific [place] 1.020 (1.005-1.025) Urine Protein Negative (Neg-Trace) mg/dL Urine Glucose (UA) Negative (Negative) mg/dL Urine Ketones Negative (Negative) mg/dL Urine Blood Negative (Negative) Urine Nitrite Negative (Negative) Ur Leukocyte Esterase Trace H (Negative) Urine RBC 0-2 (0-2) /HPF Urine WBC 0-5 (0-5) /HPF Ur Squamous Epith Cells 0-2 (0-2) /HPF Urine Bacteria None Seen (None Seen) Hyaline Casts 0-2 (0-2) /LPF Radiology Impression Discussion of test interpretation with radiology: I have reviewed the radiologist's reading. External Record Review External record reviewed: Office record Discharge Plan Discharge Clinical Impression: Knee pain, bilateral Patient Disposition: Home, Self-Care Instructions: Knee Pain (ED) Prescriptions: No Action ondansetron 4 mg tablet,disintegrating 4 mg PO Q8H PRN (Reason: nausea and vomiting) Qty: 7 0RF docusate sodium 100 mg Capsule 100 mg PO BID Qty: 0 0RF acetaminophen 650 mg/20.3 mL Solution 650 mg PO Q4H PRN (Reason: moderate pain) Qty: 0 0RF polyethylene glycol 3350 17 gram Powder In Packet 17 g PO DAILY PRN (Reason: constipation) Qty: 0 0RF lorazepam [Ativan] 0.5 mg tablet 0.5 mg PO TID PRN (Reason: anxiety) Qty: 7 0RF albuterol sulfate 90 mcg/actuation HFA aerosol inhaler 2 puff inhalation Q4-6H PRN (Reason: SOB/Wheezing) methotrexate sodium 2.5 mg tablet 15 mg PO QWEEK 90 Days Qty: 78 1RF folic acid 1 mg tablet 1 mg PO DAILY Qty: 90 1RF Referrals: Millicent Chapa MD [Primary Care Provider] - 07/05/24 Print Language: Jamaican
--- NOTE | 2024-07-03 18:50 | PC.NURSE ---
22 ga iv placed Rac
[2024-07-03] MEDS: Ketorolac Tromethamine 15 MG/ML VIAL IVPUSH (19:08)
[2024-07-03] MEDS: 0.9 % Sodium Chloride 500 ML 999 ML IV (19:08)
[2024-07-03 20:10] LABS: Appearance Urine Clear; Color Urine Yellow; Glucose Urine UA Negative (Negative); Leukocyte Esterase Urine Trace (Negative); Nitrite Urine Negative (Negative); UMIC TRIGGER UACC YES; Urine Blood Negative (Negative); Urine Ketones Negative (Negative); Urine Protein Negative (Neg-Trace)
[2024-07-03 20:13] LABS: Bacteria Urine None Seen (None Seen); Hyaline Casts Urine 0-2 /LPF (0-2); RBC Urine 0-2 /HPF (0-2); Squamous Epithelial Cell Urine 0-2 /HPF (0-2); WBC Urine 0-5 /HPF (0-5)
[2024-07-03] MEDS: ondansetron HCL 4 MG/2 ML VIAL IVPUSH (21:01)
[2024-07-03] MEDS: HYDROmorphone HCl 0.5 MG/0.5 ML SYRINGE 0.25 MG IVPUSH (21:01)
[2024-07-03 21:05] VITALS: BP 107/63; PULSE 65; RESP 16; TEMP 36.6; O2SAT 100
[2024-07-03 22:11] VITALS: BP 107/63; PULSE 65; RESP 16; TEMP 36.6; O2SAT 100
== END 2024-07-03 22:12 | disposition home or self-care (01) ==
PROVIDERS: Physician Assistant; Emergency Provider Emergency Medicine Emergency Medical Services; PCP Internal Medicine
DX: M25.562 Pain in left knee (principal); M25.561 Pain in right knee; R20.0 Anesthesia of skin; R11.0 Nausea; R60.0 Localized edema; R06.02 Shortness of breath; Z79.899 Other long term (current) drug therapy
CPT/HCPCS: 36415; 80048; 80076; 81001; 82550; 83735; 83880; 85025; 85610; 85652; 86140; 93970; 96361; 96374; 96375; 99284; J1171; J1885; J2405

== ENCOUNTER → 2024-07-03 12:54 | Outpatient (BNV) | payer BC, SELFPAY | PROVIDERS: PCP Internal Medicine; Visit Provider Radiology Diagnostic Radiology | DX: M79.604 Pain in right leg (principal); M79.605 Pain in left leg | CPT/HCPCS: 93970 ==

== ENCOUNTER 2024-07-10 12:04 | Outpatient (REF) | payer BC, SELFPAY ==
--- OUTSIDE RECORDS SUMMARY | 2024-07-10 13:16 | XMS_ITS | Encounter Summary ---
Author Organization [facility] Address [address] [place] [address] Care Team Providers Care Concrete Pipe Maker Name Role Phone Millicent Chapa MD Primary Care Prov ider Reason for Referral * Consultation (Routine) - Pending Review Specialty Diagnoses / Procedures Referred By Lillian arroyo Referred To Contact Behavioral Health Diagnoses Chronic pain syndrome Millicent Chapa MD [address], [place] Phone: tel: fax: Referral ID Status Reason Start Date Expiration Date Visits Requested Visits Authorized [id number] Pending Review Specialty Services Required 06/15/2024 06/15/2025 1 1 Reason for Visit * Reason Comments Knee Injury Fatigue Encounter Details Date Type Department Care Team (Late st Contact Info) Description 06/15/2024 10:00 AM EST Office Visit Adult Medicine - [place] [address] [place] [address] Millicent Chapa MD [address], [place] Closed fracture of left tibial plateau with delayed healing, subsequent encounter (Primary Dx); Chronic pain syndrome; Osteoporosis, unspecified osteoporosis type, unspecified pathological fracture presence Social History Tobacco Use Types Packs/Day Years Used Date Smoking Tobacco: Never Smokeless Tobacco: Never Tobacco Cessation:Counseling Given: Not Answered Alcohol Use Standard Drinks/Week Comments No 0 (1 standard drink = 0.6 oz pur e alcohol) Comments No Sex and Gender Information Value Date Recorded Sex Assigned at Not on file Legal Sex Female 10:51 AM EST Gender Identity Not on file Sexual Orientation Not on file documented as of this [...] in this encounter Ordered Prescriptions Prescription Sig Dispense Quantity Refills Last Filled Start Date End Date predniSONE (DELTASONE) 1 mg tablet Take 1 [...] 1 of left lower extremity 08/25/2022 COVID-19 telma leeuler manifesting chronic muscle pain 07/13/2022 Post viral [...] prednisone for now She will see the conference services coordinator she has had a persistently elevated rheumatoid [...] Care Team (Late st Contact Info) Description 07/11/2024 10:00 AM EST Office Visit Adult [facility] [address] [place] [address] Fredrick Munoz PA [address] [place] [address] 08/17/2024 9:30 AM EDT Office Visit Adult Medicine [facility] [address] [place] [address] Fredrick Munoz PA [address], [place] 09/27/2024 8:30 AM EDT Office Visit Adult Medicine [facility] [address] [place] [phone] Millicent Chapa MD [address], [place] Scheduled Referrals Name Type Priority Associated Diagnoses Order Schedule Ambulatory referral to Behavioral Health Outpatient Referral Routine Chronic pain syndrome 1 Occurrences starting 06/15/2024 until 06/15/2025 documented as of this encounter Visit Diagnoses Diagnosis Closed fracture of left tibial plateau with delayed healing, subsequent encounter- Primary Chronic pain syndrome Osteoporosis, unspecified osteoporosis type, unspecified pathological fracture presence documented in this encounter Care Teams Concrete Pipe Maker Relationship Specialty Start Date End Date Millicent Chapa MD [address] [place] [id number] PCP - General 07/21/06 documented as of this encounter
--- OUTSIDE RECORDS SUMMARY | 2024-07-10 13:16 | XMS_ITS | Encounter Summary ---
Author Organization [facility] Address [address] [place] [address] Care Team Providers Care Consultant Rn Name Role Phone Millicent Chapa MD Primary Care Prov ider Reason for Visit * Reason Onset Date Comments Joint Swelling 07/03/2024 Encounter Details Date Type Department Care Team (Late st Contact Info) Description 07/03/[address] [facility] [address] [place] [phone] Millicent Chapa MD [address] [place] [address] Joint Swelling Social History Tobacco Use Types Packs/Day Years [...] Progress Notes * Amina Baez RN - 07/03/2024 11:17 AM EST Left message to call back * Vilma Hector - 07/03/2024 11:02 AM EST Patient call requires triage: Symptoms patient is presenting: ankle swelling How long has patient had these symptoms?: 3 weeks For ALL patients calling to schedule [...] traveled recently to another state outside of [place], [place], [place], [place], [place], [place], [place]? no o If yes, did you quarantine [...] of accident/Injury: No If yes, gather 3rd democrat insurance information Third Alliance Party Information: not applicable PCP: Millicent Chapa MD Payor: GUNNAR Caputo [place] / Plan: [place] / Product Type: *No Product type* / documented in this encounter Plan of Treatment Upcoming Encounters Date Type Department Care Team (Late st Contact Info) Description 07/11/2024 10:00 AM EST Office Visit Adult [address] [phone] Fredrick Munoz PA [address] [place] [address] 08/17/2024 9:30 AM EDT Office Visit [address] [phone] Fredrick Munoz PA [address] [place] [address] 09/27/2024 8:30 AM EDT Office Visit [address] [phone] Millicent Chapa MD [address] [place] [address] documented as of this encounter Visit Diagnoses Not on filedocumented in this encounter Care Teams Consultant Rn Relationship Specialty Start Date End Date Millicent Chapa MD [address] [place] [address] PCP - General 07/21/06 documented as of this encounter
--- OUTSIDE RECORDS SUMMARY | 2024-07-10 13:16 | XMS_ITS | Encounter Summary ---
Author Organization [facility] Address [address] [place] [address] Care Team Providers Care Business Solutions Consultant Name Role Phone Millicent Chapa MD Primary Care Prov ider Reason for Visit * Reason Onset Date Comments Knee Pain 05/17/2024 Encounter Details Date Type Department Care Team (Late st Contact Info) Description 05/17/2024 Telephone Adult Medicine - [place] [address] [place] [phone] Millicent Chapa MD [address] [place] [address] Knee Pain Social History Tobacco Use Types Packs/Day Years Used Date Smoking Tobacco: Never Smokeless Tobacco: Never Alcohol Use Standard Drinks/Week Comments No 0 (1 standard drink = 0.6 oz pur e alcohol) Comments Unknown Sex and Gender Information Value Date Recorded [...] traveled recently to another state outside of [place], [place], [place], [place], [place], [place], [place]? no o If yes, did you quarantine [...] of accident/Injury: No If yes, gather 3rd green party insurance information Third Libertarian Information: not applicable PCP: Millicent Chapa MD Payor: / No coverage found. documented in this encounter Plan of Treatment Upcoming Encounters Date Type Department Care Team (Late st Contact Info) Description 07/11/2024 10:00 AM EST Office Visit [address] [phone] Fredrick Munoz PA [address] [place] [address] 08/17/2024 9:30 AM EDT Office Visit [address] [phone] Fredrick Munoz PA [address] [place] [address] 09/27/2024 8:30 AM EDT Office Visit [address] [phone] Millicent Chapa MD [address] [place], [place] documented as of this encounter Visit Diagnoses Not on filedocumented in this encounter Care Teams Business Solutions Consultant Relationship Specialty Start Date End Date Millicent Chapa MD [address] [place] [id number] PCP - General 07/21/06 documented as of this encounter
--- OUTSIDE RECORDS SUMMARY | 2024-07-10 13:16 | XMS_ITS | Clinical Summary ---
Author Organization [facility] [address] [facility] Address [address] [place] [address] Phone Care Team Providers Care Interior Design Program Chair Name Role Phone Millicent Chapa MD Primary [...] Derived 02/05/2006 Sulfa (Sulfonamide Antibiotics) 02/05/2006 Medications HYDROmorphone (DILAUDID) 2 mg tablet 4 Active pregabalin (LYRICA) 25 mg capsule Take 1 capsule (25 mg total) by mouth 2 (two) times a day. Max Daily Amount: 50 mg 4 Active UNABLE TO FIND Misc. Devices (Free Spirit Knee/Leg Walker) Misc, 1 Device by Does not apply route daily. 4 Active albuterol HFA (PROAIR HFA ; PROVENTIL HFA ; VENTOLIN HFA) 90 mcg/actuation inhaler Inhale 2 Puffs into the lungs every 4 hours as needed for Cough or Wheezing. 4 Active ondansetron ODT (ZOFRAN-ODT) 4 mg disintegrating tablet Take 1 Tablet by mouth every 8 hours as needed for Nausea (prn). Take 1 Tablet by mouth every 8 hours as needed. 3 Active zoledronic acid (RECLAST) 5 mg/100 mL piggyback Inject 5 mg into the vein Once. 3 Active ibuprofen (MOTRIN ORAL) Take by mouth. Active LORazepam (ATIVAN) 0.5 mg tablet Take 1 tablet (0.5 mg total) by mouth 2 (two) times a day. Max Daily Amount: 1 mg 56 tablet 2 4 Active predniSONE (DELTASONE) 1 mg tablet Take 1 tablet (1 mg total) by mouth 1 (one) time each day. 30 each 3 5 10/14/19 25 Active Active Problems Problem Noted Date Diagnosed Date Anxiety 05/17/2024 Celiac sprue 05/17/2024 Weight loss 05/17/2024 Closed fracture of left tibial plateau 4 Chronic pain of left knee 04/23/2023 Osteopenia [...] Encounters Date Type Department Care Team Description 07/05/2024 Telephone Adult [address] [phone] Millicent Subramanian MD Joint Swelling (Ankles Swelling ) 07/03/[address] [phone] Millicent Subramanian MD Joint Swelling 06/20/[address] [phone] Millicent Subramanian MD Pain 06/15/2024 10:00 AM EST Office Visit [address] [phone] Millicent Subramanian MD Closed fracture of left tibial plateau with delayed healing, subsequent encounter (Primary Dx); Chronic pain syndrome; Osteoporosis, unspecified osteoporosis type, unspecified pathological fracture presence 05/17/[address] [phone] iMllicent Subramanian MD Knee Pain 05/16/[address] [phone] Millicent Subramanian MD from Last 3 Months Immunizations Name Administration Dates Next Due Influenza Quadravalent, MDCK , 0.5ml, with preservative (Flucelvax) 6mo and older 04/14/2021 [facility]works SARS-CoV-2 COVID -19, vector-nr, rS-Ad26, preservative free 03/27/2021 PPD Test 03/17/2017,02/18/2010 Surgical History Surgery Date Site/Laterality Comments VAGINAL DELIVERY PROCEDURE: [place] VAGINAL DELIVERY ONLY; COMMENT: x3 Medical History [...] on file Sexual Orientation Not on file Obstetrics History Last Filed [...] 07/11/2024 10:00 AM EST Office Visit Adult [address] [phone] Fredrick Munoz PA [address] [place], [place] 08/17/2024 9:30 AM EDT Office Visit [address] [phone] Fredrick Munoz PA [address] [place], [place] 09/27/2024 8:30 AM EDT Office Visit Adult [address] [phone] Millicent Chapa MD [address] [place] [address] Health Maintenance Due Date Last Done Comments DTaP,Tdap,and Td Vaccines (1 - Tdap) 12/29/1966 Pneumococcal Vaccine: 50+ Years (1 of 2 - PCV) 12/29/1978 Pneumococcal Vaccine: Pediatrics (0 to 5 Years) and At-Risk Patients (6 to 64 Years) (1 of 2 - PCV) 12/29/1978 Zoster Vaccines (1 of 2) 04/15/2017 [...] patient's age to complete this topic Meningococcal B Vacine Aged Out No lo nger eligible based on patient's age to complete [...] to have osteoporosis by WHO criteria. [facility] Department of Internal Medicine recommends using National [...] alternative screening schedule based on jana Mahmood., [facility] June 18, 2011 for patients with osteopenia [...] to have osteoporosis by WHO criteria. The [facility] Department of Internal Medicine recommendsusing National Osteoporosis [...] FRAX. Optional alternative screening schedule based on otis Mahmood al., [facility] for patients with osteopenia (based on hip BMD T-score) is as follows: * advanced osteopenia (T scores -2.00 to -2.49), BMD testing every year * moderate osteopenia (T scores -1.50 to -1.99), BMD testing every 5years mild osteopenia or normal BMD (T scores -1.50 and higher), BMD testingevery 15 years Result [facility] Millicent Chapa MD IMG DXA PROCEDURES Final Result * Hepatitis C Screening (04/03/2019) [facility] Hepatitis C Screening abstracted Result [facility] MAINTENANCE Final Result * Pap Smear (12/29/2017) [facility] Pap smear abstracted, no interpretation Result [facility] HEALTH MAINTENANCE Final Result * Colonoscopy (10/26/2014) [facility] Colonoscopy abstracted, no interpretation Anatomical Region Laterality Modality Other Result [facility] Radha DE JESUS HEALTH MAINTENANCE Final Result * HIV Screening (02/03/2011) [facility] HIV Screening abstracted Result [facility] HEALTH MAINTENANCE Final Result from Last 3 Months or Most Recently Relevant to Health Maintenance Insurance [facility] Care Teams Interior Design Program Chair Relationship Specialty Start Date End Date Millicent Chapa MD [address] [place] [id number] PCP - General 07/21/06
--- OUTSIDE RECORDS SUMMARY | 2024-07-10 13:16 | XMS_ITS | Encounter Summary ---
Author Organization [facility] Address [address] [place] [address] Care Team Providers Care Inventory Assistant Name Role Phone Millicent Chapa MD Primary Care Prov ider Reason for Visit * Reason Onset Date Comments Joint Swelling 07/05/2024 Ankles Swelling Encounter Details Date Type Department Care Team (Late st Contact Info) Description 07/05/2024 Telephone Adult Medicine [facility] [address] [place] [phone] Millicent Chapa MD [address] [place] [address] Joint Swelling (Ankles Swelling ) Social History Tobacco Use Types Packs/Day Years [...] Progress Notes * Amina Baez RN - 07/05/2024 2:11 PM EST Left detailed message with information from PCP below * Millicent Chapa MD - 07/05/2024 11:50 AM EST I really do not have any answers for patient. Okay to reach out to the finishing tunnel operator whether it will be all right to take the methotrexate and ibuprofen together .will see patient on the * Amina Baez RN - 07/05/2024 10:11 AM EST Call to patient. [facility] 07/03. Methotrexate in ER. Oral methotrexate rx from hospital. Consider injectable? Concerned about systemic affects Ibuprofen works. Asking if OK to take methotrexate with ibuprofen as pharmacist said not to. ER indicated she could take both Hasn't take the methotrexate as a result. Taking 600-800 mg every 6-8 hours. Can this be a cause of the leg swelling? No one is managing me comprehensively and it is difficult to continue PT No appetite, chills. Doesn't know what to do doesn't want to return to ER Appt scheduled 07/11 for ER FU Contacted [facility] and requested ER notes. Will forward to PCP once received * Kenan Ramírez - 07/05/2024 9:56 AM EST Patient call requires triage: Symptoms patient is presenting: [facility] 07/03/24 for both ankle and knee swelling. Pt was given motrin. Now hips and shoulders are also in pain. Pt wants to do a lyme disease test. How long has patient had these symptoms?: 2-3 weeks For ALL patients calling to schedule [...] traveled recently to another state outside of [place], [place], [place], [place], [place], [place], [place]? no o If yes, did you quarantine [...] applicable PCP: Millicent Chapa MD Payor: GUNNAR [facility] / Plan: [facility] PPO / Product Type: *No Product type* / documented in this encounter Plan of Treatment Upcoming Encounters Date Type Department Care Team (Late st Contact Info) Description 07/11/2024 10:00 AM EST Office Visit [address] [phone] Fredrick Munoz PA [address] [place] [address] 08/17/2024 9:30 AM EDT Office Visit [address] [phone] Fredrick Munoz PA [address] [place] [address] 09/27/2024 8:30 AM EDT Office Visit [address] [phone] Millicent Chapa MD [address] [place] [address] documented as of this encounter Visit Diagnoses Not on filedocumented in this encounter Care Teams Inventory Assistant Relationship Specialty Start Date End Date Millicent Chapa MD [address] [place] [address] PCP - General 07/21/06 documented as of this encounter
--- OUTSIDE RECORDS SUMMARY | 2024-07-10 13:16 | XMS_ITS | Encounter Summary ---
Author Organization [facility] Address [address] [place] [address] Care Team Providers Care Thermostatic Controls Supervisor Name Role Phone Millicent Chapa MD Primary Care Prov ider Encounter Details Date Type Department Care Team ([facility] Contact Info) Description 05/16/2024 Telephone Adult [address] [phone] Millicent Chapa MD [address] [place] [address] Social History Tobacco Use Types Packs/Day Years [...] Upcoming Encounters Date Type Department Care Team ([facility] Contact Info) Description 07/11/2024 10:00 AM EST Office Visit [address] [phone] Fredrick Munoz PA [address] [place], [place] 08/17/2024 9:30 AM EDT Office Visit [address] [phone] Fredrick Munoz PA [address] [place], [place] 09/27/2024 8:30 AM EDT Office Visit Adult Medicine - [place] [address] [place] [phone] Millicent Chapa MD [address] [place], [place] documented as of this encounter Visit Diagnoses Not on filedocumented in this encounter Care Teams Thermostatic Controls Supervisor Relationship Specialty Start Date End Date Millicent Chapa MD [address] [place], [place] PCP - General 07/21/06 documented as of this encounter
--- OUTSIDE RECORDS SUMMARY | 2024-07-10 13:16 | XMS_ITS | Encounter Summary ---
Author Organization [facility] Address [address] [place] [address] Care Team Providers Care Pig Casting Machine Operator Name Role Phone Millicent Chapa MD Primary Care Prov ider Reason for Visit * Reason Onset Date Comments Pain 06/20/2024 Encounter Details Date Type Department Care Team (Late st Contact Info) Description 06/20/2024 Telephone Adult Medicine - [place] [address] [place] [phone] Millicent Chapa MD [address] [place] [address] Pain Social History Tobacco Use Types Packs/Day [...] to pt she agrees to do what waste examiner says , pt states that she is [...] her. Yes she should try what the waste examiner is recommending at least 3months and lets see what happens * Millicent Chapa MD - 06/20/2024 5:06 PM EST Wow. I do know what to think. I think she should choose 1 specialist and go with what ever they say. My suggestion is to go with the waste examiner. We did talk about Plaquenil in the [...] somewhat active for the knee Has had concession manager PT since knee buckled at PT [...] Needs guidance on pain control. Labs from [place] Sed rate mildly elevated which is new. [...] 07/11/2024 10:00 AM EST Office Visit Adult [facility] [address] [place] [phone] Fredrick Munoz PA [address] [place] [address] 08/17/2024 9:30 AM EDT Office Visit [facility] [address] [place] [phone] Fredrick Munoz PA [address] [place] [address] 09/27/2024 8:30 AM EDT Office Visit [address] [phone] Millicent Chapa MD [address] [place] [address] documented as of this encounter Visit Diagnoses Not on filedocumented in this encounter Care Teams Pig Casting Machine Operator Relationship Specialty Start Date End Date Millicent Chapa MD [address] [place] [address] PCP - General 07/21/06 documented as of this encounter
[2024-07-11 18:13] LABS: Lyme Abs Screen <0.90 index
[2024-07-11 22:54] LABS: Cardiolipin IgG Ab <2.0 GPL-U/mL; Cardiolipin IgM Ab <2.0 MPL-U/mL
[2024-07-12 19:08] LABS: A. Phagocytphilium DNA,RT-PCR NOT DETECTED (NOT DETECTED); Babesia Microti DNA, RT-PCR NOT DETECTED (NOT DETECTED); Borrelia Miyamotoi,DNA RT-PCR NOT DETECTED (NOT DETECTED); E.Chaffeensis DNA RT-PCR NOT DETECTED (NOT DETECTED); Lyme(Borrelia ssp)DNA RT-PCR NOT DETECTED (NOT DETECTED)
[2024-07-13 10:34] LABS: DNAds, Crithidia Antibody Negative (Negative)
[2024-07-13 12:34] LABS: Anti DNA DS Antibody <1 IU/mL; Antibody to SS-A Antigen <1.0 NEG AI (<1.0 NEG); Antibody to SS-B Antigen <1.0 NEG AI (<1.0 NEG); SM/Ribonucleoprotein Ab <1.0 NEG AI (<1.0 NEG); Smith Protein <1.0 NEG AI (<1.0 NEG)
[2024-07-13 21:28] LABS: Complement C3 158 mg/dL (83-193)
[2024-07-14 05:28] LABS: Beta-2 Glycoprotein IgA <2.0 U/mL (<20.0); Beta-2 Glycoprotein IgG <2.0 U/mL (<20.0); Beta-2 Glycoprotein IgM 2.7 U/mL (<20.0)
[2024-07-14 06:03] LABS: PTT (LAC) Screen 30 sec (<=40)
[2024-07-15 01:28] LABS: HLA B27 Negative (Negative)
[2024-07-15 12:38] LABS: Centromere Protein A Ab <11 SI (<11); Centromere Protein B Ab <11 SI (<11); Fibrillarin Ab <11 SI (<11); PM SCL 100 Ab <11 SI (<11); PM SCL 75 Ab <11 SI (<11); RNA Polymerase III RP11 Ab <11 SI (<11); RNA Polymerase III RP155 Ab <11 SI (<11); SCL-70 Extractable Nuclear Ab <11 SI (<11); Th-To Ab <11 SI (<11); U1 SNRNP RNP 70KD <11 SI (<11); U1 SNRNP RNP A <11 SI (<11); U1 SNRNP RNP C <11 SI (<11)
== END 2024-07-10 12:05 | disposition home or self-care (01) ==
LOC: HO.LAB 12:04
PROVIDERS: Internal Medicine; PCP Internal Medicine; Visit Provider Student in an Organized Health Care Education/Training Program
DX: M35.9 Systemic involvement of connective tissue, unspecified (principal); M25.50 Pain in unspecified joint; M79.10 Myalgia, unspecified site
CPT/HCPCS: 36415; 84182; 85597; 85598; 85613; 85730; 86146; 86147; 86160; 86225; 86235; 86255; 86617; 86618; 86812; 87468; 87469; 87478; 87484; 87798

== ENCOUNTER 2024-07-13 08:08 | Outpatient (AMB) | payer BC, SELFPAY ==
--- NOTE | 2024-07-13 08:09 | MHC.OFFVIS ---
Vital Signs 07/13/24 08:17 Height 5 ft 6 in BP 110/80 Blood Pressure Location Lt brachial Position Sitting Pulse 95 Pulse Source Pulse Oximeter Pulse Oximetry (%) 99 Oxygen Delivery Method Room Air Comment Unable to obtaon weight Intake Visit Reasons: Follow up Service Writer Advisor Required: No Allergies gluten [Gluten] Allergy (Severe, Verified 07/03/24 12:54) PT HAS CELIAC DISEASE Sulfa (Sulfonamide Antibiotics) Allergy (Severe, Verified 07/03/24 12:54) LUPUS-LIKE benztropine [Cogentin] Allergy (Intermediate, Verified 07/03/24 12:54) Rash ciprofloxacin [From Cipro] Allergy (Intermediate, Verified 07/03/24 12:54) TENDONOPATHY/NEUROPATHY shellfish derived Allergy (Intermediate, Verified 07/03/24 12:54) Hives promethazine Allergy (Unknown, Verified 07/03/24 12:54) Unknown nitrofurantoin [From Macrodantin] Adverse Reaction (Severe, Verified 07/03/24 12:54) Drug induced Hep Mandelamine Allergy (Intermediate, Uncoded 07/03/24 12:54) Drug induced Hep QUINOLONES Allergy (Intermediate, Uncoded 07/03/24 12:54) Unknown Medication List - Last Reconciled 07/13/24 by YOUSUF Magaña acetaminophen 650 mg (20.3 mL) PO Q4H PRN albuterol sulfate 90 mcg/actuation 2 puffs inhalation Q4-6H PRN diclofenac sodium 1% (Arthritis Pain (diclofenac)) 4 grams topical QID 30 days lorazepam (Ativan) 0.5 mg PO TID PRN ondansetron 4 mg PO Q8H PRN polyethylene glycol 3350 17 grams PO DAILY PRN pregabalin 25 mg PO TID 30 days HPI Comments Details: 63-yr-old female presents for recent onset bilateral lower extremity ankle/feet paresthesia and swelling. Patient was last seen here over 2 years ago. She reports in Dec 2023, she fell and sustained a left tibeal plateu fx. She was tx'd conservatively- NWB through Mar 2024, and progressed to weight bearing with a walker/cane. She has continued to have aching/burning/stiffness left knee pain, left lateral foot and ball of foot numbness/pain. She also medial right knee region pains. Sometimes the left knee swells, and bilateral knee redness at times- though this has been improving. She has been taking Ibuprofen 1600mg-3200mg per day since Dec, then 3200mg consistently since Mar. And Tylenol intermittently. She continues to do PT. She is using a walker. Has a w/c for longer distances. Then, 3 weeks ago she woke up with acute bilateral ankle swelling. The swelling does increase as the day progresses. When her ankle swells, she is having bilateral, L > R, pain. The left lateral part of the left lateral and ball of foot When her ankle/foot swells more, she has bilateral feet tingling, prickliness, and worsening numbness. She feels her legs feel subjectively weaker. Since the onset of the ankle swelling, she has tried to decrease Ibuprofen dose. Taking more Tylenol. Recently had bilateral ankle x-ray showed bilateral soft tissue swelling. Bilateral venous duplex did not show any evidence for DVT. Her BUN has been running elevated- 26-28 since February. She states at [facility]- had normal Lyme and BNP. She did recently see [facility] Rheumatology, who suggested she try Plaquenil, however patient was worried about taking this while she was taking NSAIDs on a scheduled basis. Thus, she was advised to try methotrexate, but she has not done yet. She has previously used gabapentin in the past for other pain symptoms, and it was not tolerated. She states she can tolerate to 50 mg of pregabalin. 06/16/24 07/03/24 14:34 15:25 WBC 5.5 RBC 3.94 L Hgb 11.7 L Hct 36.2 L ESR 34 H 19 PT 11.1 INR 1.0 Sodium 142 Potassium 4.2 Chloride 106 Carbon Dioxide 31 H Anion Gap 9 L BUN 26 H Creatinine 0.66 Random Glucose 97 Calcium 10.0 D Magnesium 2.5 Total Bilirubin 0.2 Direct Bilirubin < 0.2 AST 22 ALT 11 Alkaline Phosphatase 54 Total Creatine Kinase 35 C-Reactive Protein < 0.04 B-Natriuretic Peptide < 10 Total Protein 7.6 Albumin 4.5 04/29/2022, Initial HPI: Pt reports that last year, she fell and injured her left knee. Per pt, work-up was overall normal, but she had residual left medial knee swelling. She did do PT at the time. For the ongoing knee pain and swelling, she was taking NSAIds regularly. Then last month, she developed gross hematuria. She was seen by the ER and then urology- work-up showed a small kidney stone, but a f/u cystoscopy was normal. Her PCP had also started her on Prednisone for the hematuria, within 3 days the hemturia resolved. Then on Mar 30, she was diagnosed with COVID-19. Initially she had mild URI s/s, however after several days she did develop a symptomatic LLL PNA which was tx'd w/ a course of azithromycin. She was again started on Prednisone, and weaned off in mid-Mar. Then she started having increased paresthesias, joint pain and swelling, most notably now in her right knee (which had not bothered her prior). Recent Left knee MRI: ?Minimal patellofemoral compartment arthrosis.; Right knee MRI: Minimal patellofemoral compartment osteoarthritis with a full-thickness chondral fissure in the central trochlear groove and Intact ligaments and menisci. She has been in the ER about 5 times in the past weeks. Recent CBC, CMP- WNL w/ mildly decreased Hgb 11.9L, BUN 25, total protein 5.7L., Lyme, anti-CCP- negative. She has also seen her PCP, rheumatology, and pain management. She was started on Pregabalin, po toradal (but has completed prescription and pain management has suggested switching this to diclofenac however she is hesitant to take this d/t risk of GI upset), zofran, and lorazepam. At this time, she reports she has: LLE numbness with left knee flexion, she would experience numbness that would start in lateral knee and move medially across the knee and down the leg into her left big toe. She also started noticing pins and needles in her right toes and heels, as well as hands. She feels a zinging sensation in her bilateral elbows. She has also been noticing bilateral foot decreased sensation. Now her right knee also has pain and swelling. She is having more difficulty walking d/t the pain. She notes today she woke up with bilateral ankle swelling, which is new for her. She also been having more fatigue. She also notes new onset constipation. Pt denies any new dizziness although has a h/o BPPV. She has a h/o Raynaud's- no recent s/s. Notes her skin tends to be ruddier, but denies any recent significant peripheral skin color changes. Denies weakness. No recent head imaging or EMG/NCS. She states in [id number], she contracted salmonella, was treated with Cipro and Prednisone, and then developed prolonged autonomic and sensory neuropathy- she was treated in-pt and had 10-day rehab stay at [facility]. Pt states that she recovered from this, after about 1 year. After her 1st labor and delivery in 1986- she had an epidural- she had patchy sensory and motor deficits w/o B&B dysfunction, which persisted for 6 months. She recovered fully after 9 months of PT. [facility] Medical History Methotrexate, manager intermediate, current use Undifferentiated connective tissue disease Rheumatoid factor positive Post-COVID chronic cough Neuropathy Asthma Diverticulosis Kidney stone Celiac sprue Surgical History H/O cystoscopy S/P cardiac cath (~07/2020) Hx of excision of mass (~1999) Family History Mother Cervical cancer Uterine cancer History of thyroid disorder Maternal Grandmother Diabetes Stroke Maternal Grandfather Diabetes Coronary artery disease Paternal Grandmother Uterine cancer Diabetes Stroke Paternal Grandfather Stroke Father Bladder cancer Social History Household Members: Spouse Household Members Other:: Son Alcohol intake: current Alcohol intake frequency: does not drink Patient Tobacco Use Status: Never used Tobacco Advance Directives Date on File: 04/27/22 service: No 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 Mild left knee flexion and ankle extension tightness. Bilateral lower extremity trace distal swelling, with mid calf compression socks on. General: patient oriented x3 Motor exam (neuro): 5/5 motor strength present throughout Deep tendon reflexes (DTR's): Left brachioradialis reflex intensity grade: 2+, Right patellar reflex intensity grade: 2+ and Left patellar reflex intensity grade: 2+ Psych Appearance: grossly normal Mental Status: mental status grossly normal Speech and movement: Normal speech and movement present Affect: normal affect Assessment & Plan Assessment & Plan (1) Bilateral ankle pain: Code(s): M25.571 - Pain in right ankle and joints of right foot; M25.572 - Pain in left ankle and joints of left foot Category: Medical Qualifiers: Chronicity: unspecified Qualified Code(s): M25.571 - Pain in right ankle and joints of right foot; M25.572 - Pain in left ankle and joints of left foot (2) Elevated BUN: Code(s): R79.9 - Abnormal finding of blood chemistry, unspecified Category: Medical (3) Anemia: Code(s): D64.9 - Anemia, unspecified Category: Medical Plan I have advised patient to completely stop ibuprofen and all oral NSAIDs. She may trial pregabalin 25 mg p.o. up to t.i.d.. Trial OTC diclofenac gel 1% bilateral knees. Continue to wear low to medium compression stocks Increase ankle stretching, range of motion exercises. Advised to work with her PT to increase stretching, exercises related to ongoing bilateral knee pain. Check labs for additional common etiologies. Advise patient to follow-up with Rheumatology, to discuss starting methotrexate as ordered. Follow-up upon review of above and in 1-2 months or sooner as needed Orders: Orders Methylmalonic Acid Today D64.9 - Anemia, unspecified, R79.9 - Abnormal finding of blood chemistry, unspecified Homocysteine Today D64.9 - Anemia, unspecified, R79.9 - Abnormal finding of blood chemistry, unspecified Vitamin B6 Today D64.9 - Anemia, unspecified, R79.9 - Abnormal finding of blood chemistry, unspecified Basic Metabolic Panel Today D64.9 - Anemia, unspecified, R79.9 - Abnormal finding of blood chemistry, unspecified Medications: New diclofenac sodium 1% (Arthritis Pain (diclofenac)) apply to bilateral knee 4 grams topical QID 30 days 100 grams 3RF pregabalin 25 mg PO TID 30 days 90 caps 1RF Refilled ondansetron 4 mg PO Q8H PRN 7 tabs 0RF nausea and vomiting Coding Level of Care Code Est Pt Level 4 (81316) Diagnoses Bilateral ankle pain, unspecified chronicity M25.571; M25.572 Chronicity: unspecified Elevated BUN R79.9 Anemia D64.9
--- OUTSIDE RECORDS SUMMARY | 2024-07-13 08:14 | XMS_ITS | Encounter Summary ---
Author Organization [facility] Address [address] [place] [address] Care Team Providers Care Compressor Mechanic Name Role Phone Millicent Chapa MD Primary Care Prov ider Encounter Details Date Type Department Care Team ([facility] Contact Info) Description 07/11/2024 Telephone Adult Medicine [facility] [address] [place] [phone] Fredrick Munoz PA [address] [place] [address] Social History Tobacco Use Types Packs/Day Years [...] as of this encounter Progress Notes * Margot Quezada MA - 07/12/2024 1:39 PM EST Sent fax over to [facility] for above records with success. * TENISHA Soliz - 07/11/2024 2:43 PM EST Please request notes from [place] [facility], [facility] documented in this encounter Plan of Treatment Upcoming Encounters Date Type Department Care Team (Late st Contact Info) Description 08/17/2024 9:30 AM EDT Office Visit Adult Medicine [facility] [address] [place] [phone] Fredrick Munoz PA [address] [place], [place] 09/27/2024 8:30 AM EDT Office Visit [facility] [address] [place] [phone] Millicent Chapa MD [address] [place], [place] documented as of this encounter Visit Diagnoses Not on filedocumented in this encounter Care Teams Compressor Mechanic Relationship Specialty Start Date End Date Millicent Chapa MD [address] [place], [place] PCP - General 07/21/06 documented as of this encounter
--- OUTSIDE RECORDS SUMMARY | 2024-07-13 08:15 | XMS_ITS | Clinical Summary ---
Author Organization [facility] [address] [facility] lding Address [address] [place] [address] Phone Care Team Providers Care Topline Beading Machine Tender Name Role Phone Millicent Chapa MD Primary Care Prov ider Allergies Active Allergy Reactions Criticality Noted Date Comments Bee Venom Protein (Honey Bee) 03/01/2010 Benztropine 02/02/2014 Other Reaction(s): OTHER Double vision Ciprofloxacin-Hydrocortisone 010 Other Reaction(s): Rash/Dermatitis Codeine Nausea Only 07/11/2024 Gluten 03/01/2010 Iodinated Contrast Media 11/12/2022 Methenamine Mandelate High 03/01/2010 Other Reaction(s): OTHER Drug induced hep Nitrofurantoin High 03/01/2010 Other Reaction(s): OTHER Drug induced Hep Prochlorperazine Maleate 10/22/2010 Other Reaction(s): OTHER distonia Quinolones 08/12/2012 Periph neuropathy Shellfish Containing Products 03/01/2010 Shellfish Derived 02/05/2006 Sulfa (Sulfonamide Antibiotics) 02/05/2006 Medications UNABLE TO FIND Misc. Devices (Free Spirit [...] every 8 hours as needed. 3 Active ibuprofen (MOTRIN ORAL) Take by mouth. Active LORazepam (ATIVAN) 0.5 mg tablet Take 1 tablet (0.5 mg total) by mouth 2 (two) times a day. Max Daily Amount: 1 mg 56 tablet 2 4 Active HYDROmorphone (DILAUDID) 2 mg tablet 4 07/11/19 25 Discontin ued(Patie nt Discharge ) pregabalin (LYRICA) 25 mg capsule Take 1 capsule (25 mg total) by mouth 2 (two) times a day. 4 07/11/19 25 Discontin ued(Patie nt Discharge ) zoledronic acid (RECLAST) 5 mg/100 mL piggyback 3 07/11/19 25 Discontin ued(Patie nt Discharge ) predniSONE (DELTASONE) 1 mg tablet Take 1 tablet (1 mg total) by mouth 1 (one) time each day. 30 each 3 5 07/11/19 25 Discontin ued(Patie nt Discharge ) Active Problems Problem Noted Date Diagnosed Date [...] Encounters Date Type Department Care Team Description 07/11/2024 10:00 AM EST Office Visit [address] [phone] Fredrick Munoz PA Chronic pain of left knee (Primary Dx); Bilateral edema of lower extremity 07/11/2024 Telephone Adult [address] [phone] Fredrick Munoz PA 07/05/[address] [phone] Millicent Subramanian MD Joint Swelling (Ankles Swelling ) 07/03/[address] [address] Millicent Subramanian MD Joint Swelling 06/20/[address] [phone] Millicent Subramanian MD Pain 06/15/2024 10:00 AM EST Office Visit [address] [phone] Millicent Subramanian MD Closed fracture of left tibial plateau with delayed healing, subsequent encounter (Primary Dx); Chronic pain syndrome; Osteoporosis, unspecified osteoporosis type, unspecified pathological fracture presence 05/17/[address] [address] Millicent Subramanian MD Knee Pain 05/16/[address] [phone] Millicent Subramanian MD from Last 3 Months Immunizations Name Administration Dates Next Due Influenza Quadravalent, MDCK , 0.5ml, with preservative (Flucelvax) 6mo and older 04/14/2021 GENARO/Link SARS-CoV-2 COVID -19, vector-nr, [id number], preservative free 03/27/2021 PPD Test 03/17/2017,02/18/2010 Surgical History Surgery Date Site/Laterality Comments VAGINAL DELIVERY PROCEDURE: SC VAGINAL DELIVERY ONLY; COMMENT: x3 Medical History [...] Sign Reading Time Taken Comments Blood Pressure 119/67 07/11/2024 10:01 AM EST Pulse 74 07/11/2024 10:01 AM EST Temperature 36.8 ??C (98.3 ??F) 07/11/2024 10:[address] Respiratory Rate - - Oxygen Saturation - - Inhaled Oxygen Concentration - - Weight 45.4 kg (100 lb) 07/11/2024 10:01 AM EST Height 154.9 cm (5' 1 ) 07/11/2024 10:01 AM EST Body Mass Index 18.89 07/11/2024 10:01 AM EST Plan of Treatment Upcoming Encounters Date Type Department Care Team (Late st Contact Info) Description 08/17/2024 9:30 AM EDT Office Visit [facility] Medicine [address] [phone] Fredrick Munoz PA [address] [place], [place] 09/27/2024 8:30 AM EDT Office Visit Adult [facility] - [place] [address] [place] [phone] Millicent Chapa MD [address] [place], [place] Health Maintenance Due Date Last Done Comments DTaP,Tdap,and Td Vaccines (1 - Tdap) 12/29/1978 Pneumococcal Vaccine: 50+ Years (1 of 2 [...] to have osteoporosis by WHO criteria. The [facility] Department of Internal Medicine recommends [...] alternative screening schedule based on jana Mahmood., [facility] June 18, 2011 for patients with [...] to have osteoporosis by WHO criteria. The [facility] Department of Internal Medicine recommendsusing [...] alternative screening schedule based on j[facility] Mahmood., [facility] for patients with osteopenia (based on hip BMD T-score) is as follows: * advanced osteopenia (T scores -2.00 to -2.49), BMD testing every year * moderate osteopenia (T scores -1.50 to -1.99), BMD testing every 5years mild osteopenia or normal BMD (T scores -1.50 and higher), BMD testingevery 15 years Millicent Chapa MD IMG DXA PROCEDURES Final Result * Hepatitis C Screening (04/03/2019) [facility] Hepatitis C Screening abstracted [facility] Provider HEALTH MAINTENANCE Final Result * Pap Smear (12/29/2017) [facility] Pap smear abstracted, no interpretation [facility] HEALTH MAINTENANCE Final Result * Colonoscopy (10/26/2014) [facility] Colonoscopy abstracted, no interpretation Anatomical Region Laterality Modality Other [facility] Provider HEALTH MAINTENANCE Final Result * HIV Screening (02/03/2011) [facility] HIV Screening abstracted us Historical Provider HEALTH MAINTENANCE Final Result from Last 3 Months or Most Recently Relevant to Health Maintenance Insurance Care Teams Topline Beading Machine Tender Relationship Specialty Start Date End Date Millicent Chapa MD [address] [place] [phone] PCP - General 07/21/06
--- OUTSIDE RECORDS SUMMARY | 2024-07-13 08:15 | XMS_ITS | Encounter Summary ---
Author Organization [facility] Address [address] [place] [address] Care Team Providers Care Computer Repair Engineer Name Role Phone Millicent Chapa MD Primary Care Prov ider Reason for Visit * Reason Onset Date Comments Joint Swelling 07/05/2024 Ankles Swelling Encounter Details Date Type Department Care Team (Late st Contact Info) Description 07/05/2024 Telephone Adult Medicine [facility] [address] [place] [phone] Millicent Chapa MD [address] [place] [address] Joint Swelling (Ankles Swelling ) Social History [...] patient. Okay to reach out to the bell clerk whether it will be all right to take the methotrexate and ibuprofen together .will see patient on the * Amina Baez RN - 07/05/2024 10:11 AM EST Call to patient. [place] [facility] 07/03. Methotrexate in ER. Oral methotrexate [...] Appt scheduled 07/11 for ER FU Contacted [facility] and requested ER notes. Will forward to PCP once received * Kenan Ramírez - 07/05/2024 9:56 AM EST Patient call requires triage: Symptoms patient is presenting: [place] [facility] 07/03/24 for both ankle and knee [...] traveled recently to another state outside of [place], [place], [place], [place], [place], [place], [place]? no o If yes, did you quarantine [...] PCP: Millicent Chapa MD Payor: [employer] [facility] / Plan: [facility] PPO / Product Type: *No Product type* / documented in this encounter Plan of Treatment Upcoming Encounters Date Type Department Care Team (Late st Contact Info) Description 08/17/2024 9:30 AM EDT Office Visit Adult [facility] [address] [place] [phone] Fredrick Munoz PA [address] [place] [address] 09/27/2024 8:30 AM EDT Office Visit [facility] [address] [place] [phone] Millicent Chapa MD [address] [place] [address] documented as of this encounter Visit Diagnoses Not on filedocumented in this encounter Care Teams Computer Repair Engineer Relationship Specialty Start Date End Date Millicent Chapa MD [address] [place] [address] PCP - General 07/21/06 documented as of this encounter
--- OUTSIDE RECORDS SUMMARY | 2024-07-13 08:15 | XMS_ITS | Encounter Summary ---
Author Organization [facility] Address [address] [place] [address] Care Team Providers Care Vice President Of Product Marketing Name Role Phone Millicent Chapa MD Primary Care Prov ider Reason for Referral * Consultation (Routine) - Pending Review Specialty Diagnoses / Procedures Referred By Lillian arroyo Referred To Contact Behavioral Health Diagnoses Chronic pain syndrome Millicent Chapa MD [address] [place], [place] Phone: tel: fax: Referral ID Status Reason Start Date Expiration Date Visits Requested Visits Authorized [id number] Pending Review Specialty Services Required 06/15/2024 06/15/2025 1 1 Reason for Visit * Reason Comments Knee Injury Fatigue Encounter Details Date Type Department Care Team (Late st Contact Info) Description 06/15/2024 10:00 AM EST Office Visit [facility] [place] [address] [place] [address] Millicent Chapa MD [address] [place], [place] Closed fracture of left tibial plateau [...] time each day. 30 each 3 06/15/2024 07/11/2024 documented in this encounter Progress Notes * [...] prednisone for now She will see the pneumatic systems operator she has had a persistently elevated rheumatoid [...] 9:30 AM EDT Office Visit Adult Medicine [facility] [address] [place] [address] Fredrick Munoz PA [address] [place] [address] 09/27/2024 8:30 AM EDT Office Visit Adult Medicine [facility] [address] [place] [address] Millicent Chapa MD [address] [place] [address] Scheduled Referrals Name Type Priority Associated Diagnoses Order Schedule Ambulatory referral to Behavioral Health Outpatient Referral Routine Chronic pain syndrome 1 Occurrences starting 06/15/2024 until 06/15/2025 documented as of this encounter Visit Diagnoses Diagnosis Closed fracture of left tibial plateau with delayed healing, subsequent encounter- Primary Chronic pain syndrome Osteoporosis, unspecified osteoporosis type, unspecified pathological fracture presence documented in this encounter Care Teams Vice President Of Product Marketing Relationship Specialty Start Date End Date Millicent Chapa MD [address] [place] [address] PCP - General 07/21/06 documented as of this encounter
--- OUTSIDE RECORDS SUMMARY | 2024-07-13 08:15 | XMS_ITS | Encounter Summary ---
Author Organization [facility] Address [address] [place] [address] Care Team Providers Care Tugboat Dispatcher Name Role Phone Millicent Chapa MD Primary Care Prov ider Encounter Details Date Type Department Care Team ([facility] Contact Info) Description 05/16/2024 Telephone Adult [address] [phone] Millicent Chapa MD [address] [place] [address] Social History Tobacco Use Types Packs/Day Years [...] Upcoming Encounters Date Type Department Care Team ([facility] Contact Info) Description 08/17/2024 9:30 AM EDT Office Visit Adult [address] [phone] Fredrick Munoz PA [address] [place], [place] 09/27/2024 8:30 AM EDT Office Visit [address] [phone] Millicent Chapa MD [address] [place] [address] documented as of this encounter Visit Diagnoses Not on filedocumented in this encounter Care Teams Tugboat Dispatcher Relationship Specialty Start Date End Date Millicent Chapa MD [address] [place] [address] PCP - General 07/21/06 documented as of this encounter
--- OUTSIDE RECORDS SUMMARY | 2024-07-13 08:15 | XMS_ITS | Encounter Summary ---
Author Organization [facility] Address [address] [place] [address] Care Team Providers Care Sap Sd Analyst Name Role Phone Millicent Chapa MD Primary Care Prov ider Reason for Visit * Reason Comments Follow-up Encounter Details Date Type Department Care Team ([facility] st Contact Info) Description 07/11/2024 10:00 AM EST Office Visit Adult Medicine [facility] [address] [place] [address] Fredrick Munoz PA [address] [place] [address] Chronic pain of left knee (Primary Dx); Bilateral edema of lower extremity Social History Tobacco Use Types Packs/Day Years [...] Mass Index 18.89 07/11/2024 10:01 AM EST documented in this encounter Progress Notes * TENISHA Soliz - 07/11/2024 10:00 AM EST CHIEF COMPLAINT: Follow-up IDENTIFIER: Ruby Tarango is a 63 y.o. old female. HPI: Very complex patient here for follow-up. Left lateral tibial plateau fracture in December and has been having multiple setbacks. Healing was accomplished through nonweightbearing status. Had been doing much better up until about 2 months ago when she is doing some stairs in physical therapy she felt her left knee buckle. She has been experiencing worsening bilateral knee pain, bilaterally swelling. Compression stockings were not helpful but seemed trapped the edema and she reports 3-4+ pitting edema worsened in theafternoon resulting in very tight fitting shoes. She has generalized aching and she notices some tingling in the toe with full extension of the left knee concerning for peroneal nerve dysfunction. She does have multiple specialists. 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 She was prescribed Plaquenil but because of her issues with quinolones in the past was advised not to take this. She was then prescribed methotrexate but has been hesitant regarding that due to themultiple side effects but also it is less than ideal hearing with NSAIDs. She is currently taking 600 to 800 mg ibuprofen every 6-8 hours along with Tylenol 1000 mg every 4-6 hours. States her pain is off the Mae scale She sees an orthopedist with follow-up scheduled shortly but states that they have told her there is not much more that they can do for her. She also has a photogrammetrist at [facility] and states that she has an EMG scheduled for July to check for the peroneal nerve functioning. She had been on hydromorphone after the injury and weaned herself off of this She wonders if a course of Lasix would be useful at all for the leg swelling. She wonders if the NSAIDs have induced her peripheral neuropathy but is hesitant to reduce those because without them herpain significantly worsens. She is about 6 sessions into working with a behavioral health provider who has some facility and dealing with chronic conditions. She was [facility] on 07/03/2024 for these chronic issues and had Doppler negative for DVT, D-dimer negative, CRP and ESR both negative, CPK of 35 with no signs of rhabdo, hepatic function normal, BNP normal, no signs of infection on urine, magnesium normal, white count normal, [id number] with baseline and no signs of anemia; ROS: GENERAL: Negative for malaise, significant weight loss and fever GI: Negative for abdominal discomfort, changes in bowel habits, blood in stool or black stools : Negative for dysuria, frequency, and incontinence ENDOCRINE: Negative for cold or heat intolerance, polyuria, polydipsia and goiter NEURO: No persistent headache, fainting, seizures, strokes, TIAs, weakness, numbness or tingling PAST MEDICAL HISTORY: Patient Active Problem List [...] Outpatient Medications Marked as Taking for the 07/11/24 encounter (Office Visit) with TENISHA Soliz Medication Sig Dispense Refill albuterol HFA (PROAIR [...] Bee venom protein (honey bee), Benztropine, Ciprofloxacin-hydrocortisone, Codeine, Gluten, Iodinated contrast media, Prochlorperazine maleate, Quinolones, Shellfish containing products, Shellfish derived, and Sulfa (sulfonamide antibiotics) PHYSICAL EXAM: Blood pressure 119/67, pulse 74, temperature 36.8 ??C (98.3 ??F), temperature source Temporal, height 1.549 m (61 ), weight (!) 45.4 kg (100 lb). Body mass index is 18.89 kg/m??. BMI is 18.5 to 24.9 (within the normal range) and will be followed APPEARANCE: Alert and in no acute distress, comfortably sitting in wheelchair NECK: Neck supple, no adenopathy, thyroid symmetric and of normal size HEART: RRR with normal S1 and S2, no murmurs, no gallops, no JVD appreciated LUNG: clear to auscultation bilaterally EXTREMITIES: Extremities warm and well perfused without clubbing, cyanosis at a little air pain andsore, Normal pulses bilaterally, and mild 1+ pitting edema at ankles bilaterally NEURO: Awake, alert and oriented x 3 and Cranial nerves II-XII grossly intact SKIN: Skin color, texture, turgor normal. No rashes or lesions. LABS: Labs and imaging reports from emergency room reviewed and sent for scan. IMPRESSION: 1. Chronic pain of left knee 2. Bilateral edema of lower extremity PLAN: I spent 47 minutes for this encounter with the combination of initial chart review, review of outside documentation, appropriate labs and imaging, patient interview and appropriate physical examination. This excludes any separately billable procedures. Unclear regarding patient's chronic left knee pain and bilateral lower extremity edema. Very possibly could be related to her NSAID and acetaminophen overuse. Recommend decreasing the NSAID use. Consider switching to meloxicam. Patient states that she has tried this previously and was ineffective. Has multiple medication sensitivities and the only thing that has been helpful for her was hydromorphone but there is concern over potential addiction if this is used. She has previously been to pain management and follows with multiple other providers so it is difficult to ascertain what is going to be most beneficial in her care as she presents with minimal physical findings Strongly encouraged to continue with behavioral health Requesting notes from outside providers to get a clearer sense of what might be possible. Discussed signs and symptoms warranting reevaluation. Risks, benefits, and side-effects of the medication were discussed and the patient expressed verbalunderstanding and consents to the plan. Followup as scheduled with PCP This note was created using dictation software and may contain syntax and grammar errors. No orders of the defined types were placed in this encounter. ADDITIONAL ORDERS: None TENISHA Soliz on 07/11/2024 at 1:40 PM EST documented in this encounter Plan of Treatment Upcoming Encounters Date Type Department Care Team (Late st Contact Info) Description 08/17/2024 9:30 AM EDT Office Visit [address] [phone] Fredrick Munoz PA [address] [place] [address] 09/27/2024 8:30 AM EDT Office Visit [address] [phone] Millicent Chapa MD [address] [place] [address] documented as of this encounter Visit Diagnoses Diagnosis Chronic pain of left knee- Primary Bilateral edema of lower extremity documented in this encounter Discontinued Medications Medication Sig Discontinue Reason Start Date End Da te pregabalin (LYRICA) 25 mg capsule Take 1 capsule (25 mg total) by mouth 2 (two) times a day. Patient Discharge 02/18/2024 07/11/2024 predniSONE (DELTASONE) 1 mg tablet Take 1 tablet (1 mg total) by mouth 1 (one) time each day. Patient Discharge 06/15/2024 07/11/2024 zoledronic acid (RECLAST) 5 mg/100 mL piggyback Patient Discharge 08/28/2022 07/11/2024 HYDROmorphone (DILAUDID) 2 mg tablet Patient Discharge 02/18/2024 07/11/2024 documented as of this encounter Care Teams Sap Sd Analyst Relationship Specialty Start Date End Date Millicent Chapa MD [address] [place] [id number] PCP - General 07/21/06 documented as of this encounter
--- OUTSIDE RECORDS SUMMARY | 2024-07-13 08:15 | XMS_ITS | Encounter Summary ---
Author Organization [facility] Address [address] [place] [address] Care Team Providers Care Sponge Press Operator Name Role Phone Millicent Chapa MD Primary Care Prov ider Reason for Visit * Reason Onset Date Comments Joint Swelling 07/03/2024 Encounter Details Date Type Department Care Team (Late st Contact Info) Description 07/03/2024 Telephone Adult Medicine [facility] [address] [place] [phone] Millicent Chapa MD [address] [place] [address] Joint Swelling Social History Tobacco Use Types [...] traveled recently to another state outside of [place], [place], [place], [place], [place], [place], [place]? no o If yes, did you quarantine [...] yes, gather 3rd democrat insurance information Third Democrat Information: not applicable PCP: Millicent Chapa MD Payor: GUNNAR Caputo [place] / Plan: [facility] PPO / Product Type: *No Product type* / documented in this encounter Plan of Treatment Upcoming Encounters Date Type Department Care Team (Late st Contact Info) Description 08/17/2024 9:30 AM EDT Office Visit Adult [facility] [address] [place] [address] Fredrick Munoz PA [address] [place], [place] 09/27/2024 8:30 AM EDT Office Visit [facility] [address] [place] [address] Millicent Chapa MD [address] [place] [phone] documented as of this encounter Visit Diagnoses Not on filedocumented in this encounter Care Teams Sponge Press Operator Relationship Specialty Start Date End Date Millicent Chapa MD [address] [place] [phone] PCP - General 07/21/06 documented as of this encounter
--- OUTSIDE RECORDS SUMMARY | 2024-07-13 08:15 | XMS_ITS | Encounter Summary ---
Author Organization [facility] Address [address] [place] [address] Care Team Providers Care Tour Leader Name Role Phone Millicent Chapa MD Primary Care Prov ider Reason for Visit * Reason Onset Date Comments Pain 06/20/2024 Encounter Details Date Type Department Care Team (Late st Contact Info) Description 06/20/2024 Telephone Adult Medicine - [place] [address] [place] [phone] Millicent Chapa MD [address] [place] [address] Pain Social History Tobacco Use Types Packs/Day [...] to pt she agrees to do what hide spreader says , pt states that she is [...] her. Yes she should try what the hide spreader is recommending at least 3months and lets see what happens * Millicent Chapa MD - 06/20/2024 5:06 PM EST Wow. I do know what to think. I think she should choose 1 specialist and go with what ever they say. My suggestion is to go with the hide spreader. We did talk about Plaquenil in the [...] somewhat active for the knee Has had general handling supervisor PT since knee buckled at PT 2 [...] Needs guidance on pain control. Labs from [facility] Sed rate mildly elevated which is new. [...] 08/17/2024 9:30 AM EDT Office Visit Adult [facility] [address] [place] [address] Fredrick Munoz PA [address] [place], [place] 09/27/2024 8:30 AM EDT Office Visit [facility] [address] [place] [phone] Millicent Chapa MD [address] [place] [address] documented as of this encounter Visit Diagnoses Not on filedocumented in this encounter Care Teams Tour Leader Relationship Specialty Start Date End Date Millicent Chapa MD [address] [place] [address] PCP - General 07/21/06 documented as of this encounter
[2024-07-13 08:17] VITALS: BP 110/80; PULSE 95; O2SAT 99
== END 2024-07-13 09:30 | disposition home or self-care (01) ==
PROVIDERS: PCP Internal Medicine; Visit Provider Nurse Practitioner Family
DX: M25.571 Pain in right ankle and joints of right foot (principal); M25.572 Pain in left ankle and joints of left foot; R79.9 Abnormal finding of blood chemistry, unspecified; D64.9 Anemia, unspecified
CPT/HCPCS: 99214

== ENCOUNTER → 2024-07-13 08:08 | Outpatient (BNVA) | payer BC, SELFPAY | PROVIDERS: PCP Internal Medicine; Visit Provider Nurse Practitioner Family ==

== ENCOUNTER 2024-08-02 11:03 | Outpatient (REF) | payer BC, SELFPAY ==
--- NOTE | 2024-08-02 11:09 | EMG_ITS ---
Chief complaint: History of left tibial fracture. Paresthesias areas near the left knee, lower leg and dorsal foot. Reason for referral: Evaluate for peroneal neuropathy Procedure done: Left lower extremity NCS/EMG Precautions and/or limitations: None The limb temperature was monitored continuously and remained between 32-36 degrees C during the performance of the NCS. Nerve Conduction Studies Anti Sensory Summary Table ?Stim Site NR Onset (ms) Norm Onset (ms) Peak (ms) Norm Peak (ms) O-P Amp (?V) Norm O-P Amp Site1 Site2 Delta-0 (ms) Dist (cm) Wade (m/s) Norm Wade (m/s) Left Sup Peron Anti Sensory (Ankle) Lateral Leg ? 1.8 2.4 <4.4 9.3 >5.0 Lateral Leg Ankle 1.8 14.0 78 Left Sural Anti Sensory (Lat Mall) Calf ? 2.0 2.7 <4.0 10.7 >5.0 Calf Lat Mall 2.0 14.0 70 Motor Summary Table ?Stim Site NR Onset (ms) Norm Onset (ms) O-P Amp (mV) Norm O-P Amp iAmp (mV) Amp (1st) (%) Site1 Site2 Delta-0 (ms) Dist (cm) Wade (m/s) Norm Wade (m/s) Left Peroneal Motor (Ext Dig Brev) Ankle ? 5.2 <4.0 2.8 >2.5 3.2 100.0 Ankle Ext Dig Brev 5.2 0.0 B Fib ? 11.8 2.6 3.0 92.9 B Fib Ankle 6.6 27.0 41 >40 Poplt ? 12.7 2.6 3.0 92.9 Poplt B Fib 0.9 4.0 44 >40 Left Peroneal TA Motor (Tib Ant) Fib Head ? 3.8 <4.2 2.1 >5 2.3 100.0 Fib Head Tib Ant 3.8 0.0 Poplit ? 4.3 <5.7 2.1 >5 2.3 100.0 Poplit Fib Head 0.5 5.0 100 >40.5 Left Tibial Motor (Abd Lowe Brev) Ankle ? 5.0 <5 10.6 >2.5 14.8 100.0 Ankle Abd Lowe Brev 5.0 0.0 Knee ? 13.6 6.9 10.5 65.1 Knee Ankle 8.6 34.0 40 >40 EMG ?Side Muscle Nerve Root Ins Act Fibs Psw Amp Dur Poly Recrt Int Pat Comment Left AbdHallucis MedPlantar S1-2 Nml Nml Nml Nml Nml 0 Nml Complete Left AntTibialis Dp Br Peron L4-5 Nml Nml Nml Nml Nml 0 Nml Complete Left PostTibialis Tibial L5, S1 Nml Nml Nml Nml Nml 0 Nml Complete Left MedGastroc Tibial S1-2 Nml Nml Nml Nml Nml 0 Nml Complete Left VastusMed Femoral L2-4 Nml Nml Nml Nml Nml 0 Nml Complete Left Peroneus Long Sup Br Peron L5-S1 Nml Nml Nml Nml Nml 0 Nml Complete Left ExtHallLong Dp Br Peron L5, S1 Nml Nml Nml Nml Nml 0 Nml Complete FINDINGS: Left peroneal nerve, recording EDB muscle, showed prolonged distal latency, normal amplitude and normal conduction velocity. Left peroneal nerve, recording TA muscle, showed small amplitudes. No conduction block across fibular neck. Left tibial, sural and superficial peroneal nerves were within normal. Concentric needle EMG was performed in selected muscles of the left lower extremity. Study did not reveal signs of electric abnormalities as shown in the table above. IMPRESSION: 1. This is an abnormal study. 2. 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 3. There is no electrodiagnostic evidence for tibial neuropathy. lumbosacral plexopathy, lumbar radiculopathy, or peripheral neuropathy. CLINICAL COMMENT: Continue physical therapy. Consider repeat NCS/EMG in 6 months to evaluate progress. Thank you for your kind referral. Mary Beth Munroe MD, KACEY Board Certified, [place] Board of Physical Medicine and Rehabilitation (ABPMR) Board Certified, [place] Board of Electrodiagnostic Medicine (ABEM) [place] [id number] [facility]
--- OUTSIDE RECORDS SUMMARY | 2024-08-02 13:20 | XMS_ITS | Encounter Summary ---
Author Organization [facility] Address [address] [place] [address] Care Team Providers Care Airways Control Specialist Name Role Phone Mariam Chapa MD Primary Care Provider [phone] Reason for Visit * Reason Onset Date Comments REFERRAL 05/12/2022 Encounter Details Date Type Department Care Team Description 05/12/2022 Telephone Adult Medicine - [place] [address] [place] [address] Mariam Chapa, [address] [place] [address] REFERRAL Social History Tobacco Use Types Packs/Day Years Used Date Smoking Tobacco: Never Smokeless Tobacco: Never Alcohol Use Standard Drinks/Week Comments No 0 (1 standard drink = 0.6 oz pur e alcohol) Sex Assigned at Date Recorded Not on file Job Start Date Occupation Industry Not on file Not on file Not on file COVID-19 Exposure Response Date Recorded In the last 10 days, have yo u been in contact with someone who was confirmed or suspected to have Coronavirus/COVID-19? No / Unsure 04/17/2022 10:26 AM EST documented as of this encounter Miscellaneous Notes * Telephone Encounter - Vilma Poncevilma - 05/12/2022 2:30 PM EST Pt would like to go to [facility] for the endocrinology referral documented in this encounter Plan of Treatment Not on file documented as of this encounter Visit Diagnoses Not on filedocumented in this encounter Care Teams Airways Control Specialist Relationship Specialty Start Date End Date Mariam Chapa MD [address] [place] [address] PCP - General 07/21/06 documented as of this encounter
--- OUTSIDE RECORDS SUMMARY | 2024-08-02 13:20 | XMS_ITS | Encounter Summary ---
Author Organization [facility] Address [address] [place] [address] Care Team Providers Care Asbestos Cement Sheet Supervisor Name Role Phone Mariam Chapa MD Primary Care Provider [phone] Encounter Details Date Type Department Care Team Description 04/22/2022 Informatics Physician Report Medical Records [address] [place] [address] Isak Sanchez MD Social History Tobacco Use Types Packs/Day Years [...] AM EST documented as of this encounter Plan of Treatment Not on file documented as of this encounter Visit Diagnoses Not on filedocumented in this encounter Care Teams Asbestos Cement Sheet Supervisor Relationship Specialty Start Date End Date Mariam Chapa MD [address] [place] [address] PCP - General 07/21/06 documented as of this encounter
--- OUTSIDE RECORDS SUMMARY | 2024-08-02 13:20 | XMS_ITS | Encounter Summary ---
Author Organization [facility] Address [address] [place] [address] Care Team Providers Care Glass Installer Technician Name Role Phone Mariam Chapa MD Primary Care Provider [phone] Reason for Visit * Reason Onset Date Comments Letter 05/14/2022 Provider Call Back 05/14/2022 Encounter Details Date Type Department Care Team Description 05/14/2022 Telephone Adult Medicine - [place] [address] [place] [address] Mariam Chapa MD [address] [place] [address] Letter; Provider Call Back Social History Tobacco Use Types Packs/Day Years [...] encounter Miscellaneous Notes * Telephone Encounter - Alanna Lai M.A. - 05/15/2022 3:58 PM EST Faxed to [facility] with success and copy mailled to pt * Telephone Encounter - Raman Harley LPN - 05/15/2022 3:21 PM EST Letter on desk , I did not know I could do that * Telephone Encounter - Mariam Chapa MD - 05/15/2022 3:05 PM EST It to help me a lot if you could addendum the letter unduly MD here this afternoon and I am really swamped * Telephone Encounter - Raman Harley LPN - 05/15/2022 1:18 PM EST Pt states that she needs the letter to say to work no more than 5 hrs a day phone visits , one pt session and standard admin time as to reflect schedule , pt to be allowed to use adjustable stool; and may need crutch at times , pt will be re evaluated on 05/26/22 at 9:30 am * Telephone Encounter - Roro Calero - 05/15/2022 12:54 PM EST Patient returned the call. * Telephone Encounter - Raman Harley LPN - 05/15/2022 10:41 AM EST Left message for pt to please return our call * Telephone Encounter - Mariam Chapa MD - 05/15/2022 10:39 AM EST I do not know please asked patient what she wants and then we can addendum note * Telephone Encounter - Raman Harley LPN - 05/15/2022 10:36 AM EST How many hours a day can pt work , can letter be addend * Telephone Encounter - Arnold Ramsey - 05/15/2022 10:30 AM EST Patient called stating [facility] did receive a letter for her, but they need to knowhow many hours a day patient can work. 4 hrs a day for 5 days; or 5 hrs a day for 4 days or any other amount. Please review and call * Telephone Encounter - Camilla Nolan M.A. - 05/14/2022 3:44 PM EST Faxed letter to [facility] at [phone]. * Telephone Encounter - Amina Baez R.N. - 05/14/2022 10:54 AM EST Fax to [phone] [facility] [place]. * Telephone Encounter - Mariam Chapa MD - 05/14/2022 10:30 AM EST Letter written and signed where is this to be faxed to ? please let Floor nurse know * Telephone Encounter - Raman Harley LPN - 05/14/2022 9:28 AM EST Pt wanted to be seen today but there is no appointments , pt states that she needs a letter faxed to [employer] at [facility] or she will loose her job , pt states that the letter needs to includethat she is under PCP care, that she has post Covid complications with pneumonia , and an inflammatory reaction pt is still having sone neuropathic sensations in her feet , , pt wants to return on 05/08/22 with a 20 hr schedule then re eval in 2 weeks , pt has an appointment scheduled on 05/28/22 pt wants to know if she should see pt in person or stay just tele [place] , pt also want to know it sheshould get the flu vaccine and needs this addressed in the letter for a deferment, pt need this faxed today * Telephone Encounter - Gloria Pal - 05/14/2022 8:36 AM EST Patient is requesting to speak with triage to see if there is anyway she could be seen today? Reports that her employer needs a return to work note by tomorrow or the patient will loose her position.Patient reports the letter needs to state specific things and is requesting to speak with triage todiscuss. documented in this encounter Plan of Treatment Not on file documented as of this encounter Visit Diagnoses Not on filedocumented in this encounter Care Teams Glass Installer Technician Relationship Specialty Start Date End Date Mariam Chapa MD [facility] [place] [address] PCP - General 07/21/06 documented as of this encounter
--- OUTSIDE RECORDS SUMMARY | 2024-08-02 13:20 | XMS_ITS | Encounter Summary ---
Author Organization [email or web address] Address [address] [place] [address] Care Team Providers Care Tool Maintenance Worker Name Role Phone Mariam Chapa MD Primary Care Provider [phone] Encounter Details Date Type Department Care Team Description 10/05/2022 Subway Train Operator Report Medical Records [address] [place] [address] Isak Sanchez MD Social History Tobacco Use [...] suspected to have Coronavirus/COVID-19? No / Unsure 09/24/2022 10:24 AM EDT documented as of this encounter Plan of Treatment Not on file documented as of this encounter Visit Diagnoses Not on filedocumented in this encounter Care Teams Tool Maintenance Worker Relationship Specialty Start Date End Date Mariam Chapa MD [address] [place] [address] PCP - General 07/21/06 documented as of this encounter
--- OUTSIDE RECORDS SUMMARY | 2024-08-02 13:20 | XMS_ITS | Encounter Summary ---
Author Organization [facility] Address [address] [place] [address] Care Team Providers Care Nurse Transition Name Role Phone Mariam Chapa MD Primary Care Provider [phone] Encounter Details Date Type Department Care Team Description 11/09/2014 General Helper Report Medical Records [address] [place] [address] Daniel Rincon Social History Tobacco Use Types Packs/Day Years Used Date Smoking Tobacco: Never Alcohol Use Standard Drinks/Week Comments [...] on filedocumented in this encounter Care Teams Nurse Transition Relationship Specialty Start Date End Date Mariam Chapa, [address] [place] [address] PCP - General 07/21/06 documented as of this encounter
--- OUTSIDE RECORDS SUMMARY | 2024-08-02 13:20 | XMS_ITS | Encounter Summary ---
Author Organization [facility] Address [address] [place] [address] Care Team Providers Care Supervisor Calibration Name Role Phone Millicent Chapa MD Primary Care Prov ider Reason for Visit * Reason Comments Follow-up Encounter Details Date Type Department Care Team ([facility] st Contact Info) Description 07/11/2024 10:00 AM EST Office Visit Adult Medicine [facility] [address] [place] [address] Fredrick Munoz PA [address] [place] [address] Chronic pain of left knee (Primary Dx); [...] multiple specialists. Has seen a provider at [facility] rheumatology and told that she will likely [...] do for her. She also has a implementation lead at [facility] and states that she has an EMG [...] and dealing with chronic conditions. She was [facility] on 07/03/2024 for these chronic issues and had Doppler negative for DVT, D-dimer negative, CRP and ESR both negative, CPK of 35 with no signs of rhabdo, hepatic function normal, BNP normal, no signs of infection on urine, magnesium normal, white count normal, [id number] with baseline and no signs of anemia; [...] Description 08/17/2024 9:30 AM EDT Office Visit [address] [phone] Fredrick Munoz PA [address] [place] [address] 09/27/2024 8:30 AM EDT Office Visit [address] [phone] Millicent Chapa MD [address] [place] [address] documented as of this encounter Visit Diagnoses [...] documented as of this encounter Care Teams Supervisor Calibration Relationship Specialty Start Date End Date Millicent Chapa MD [address] [place] [address] PCP - General 07/21/06 documented as of this encounter
--- OUTSIDE RECORDS SUMMARY | 2024-08-02 13:20 | XMS_ITS | Encounter Summary ---
Author Organization [facility] Address [address] [place] [address] Care Team Providers Care Plastic Molding Operator Name Role Phone Mariam Chapa MD Primary Care Provider +1 [phone] Encounter Details Date Type Department Care Team Description 06/09/2010 Night Triage Doc Medical Records [address] [place] [address] Abstract, Provider Social History Tobacco Use Types Packs/Day Years [...] on filedocumented in this encounter Care Teams Plastic Molding Operator Relationship Specialty Start Date End Date Mariam Chapa, [address] [place] [address] PCP - General 07/21/06 documented as of this encounter
--- OUTSIDE RECORDS SUMMARY | 2024-08-02 13:20 | XMS_ITS | Encounter Summary ---
Author Organization [facility] Address [address] [place] [address] Care Team Providers Care Employment Assistant Name Role Phone Mariam Chapa MD Primary Care Provider +1 [phone] Reason for Visit * Reason Onset Date Comments Medication 02/15/2014 Encounter Details Date Type Department Care Team Description 02/15/2014 Telephone Adult Medicine - [place] [address] [place] [address] Mariam Chapa MD [address] [place] [address] Medication Social History Tobacco Use Types Packs/Day Years Used Date Smoking Tobacco: Never Alcohol Use Standard Drinks/Week Comments No 0 (1 standard drink = 0.6 oz pur e alcohol) Sex Assigned at Date Recorded Not on file Job Start Date Occupation Industry Not on file Not on file Not on file documented as of this encounter Miscellaneous Notes * Telephone Encounter - Raman Harley LPN - 02/15/2014 10:40 AM EDT Noted thank you * Telephone Encounter - Mariam Chapa MD - 02/15/2014 10:36 AM EDT Will address with patient please do not call patient back * Telephone Encounter - Raman Harley LPN - 02/15/2014 10:33 AM EDT Pt is now requesting a referral to the [facility] * Telephone Encounter - Mariam Chapa MD - 02/15/2014 10:26 AM EDT Thank you dose is appropriate for now will decrease if needed * Telephone Encounter - Raman Harley LPN - 02/15/2014 10:21 AM EDT FYI Pt called questioning her dose of celebrex , pt was advised from up to date on drug dose , pt assured that pcp would not prescribe wrong dose * Telephone Encounter - Kennedi Bird - 02/15/2014 10:04 AM EDT Symptoms patient is presenting: pt has questions regarding Celebrex How long has patient had these symptoms?: PCP: Millicent Chapa Payor: BIN/FRANNIE POS / Plan: PPO $15 [place] [id number] / Product Type: PPO [id number] documented in this encounter Plan of Treatment Not on file documented as of this encounter Visit Diagnoses Not on filedocumented in this encounter Care Teams Employment Assistant Relationship Specialty Start Date End Date Mariam Chapa MD [address] [place] [address] PCP - General 07/21/06 documented as of this encounter
--- OUTSIDE RECORDS SUMMARY | 2024-08-02 13:20 | XMS_ITS | Encounter Summary ---
Author Organization [facility] Address [address] [place] [address] Care Team Providers Care Magneto Electrician Name Role Phone Mariam Chapa MD Primary Care Provider +1 [phone] Reason for Visit * Reason Onset Date Comments Medication 06/27/2016 Encounter Details Date Type Department Care Team Description 06/27/2016 Telephone Adult Urgent Care - [address] [address] Mariam Chapa, [address] [place] [address] Medication Social History Tobacco Use Types Packs/Day Years Used Date Smoking Tobacco: Never Alcohol Use Standard Drinks/Week Comments No 0 (1 standard drink = 0.6 oz pur e alcohol) Sex Assigned at Date Recorded Not on file Job Start Date Occupation Industry Not on file Not on file Not on file documented as of this encounter Miscellaneous Notes * Telephone Encounter - Joycelyn Amador L.P.N. - 06/27/2016 12:51 PM EST Pt. Is notified of rx change. She will call if she has any difficulty with this. FYI to Francis Rees * Telephone Encounter - Aida Luevano MD - 06/27/2016 12:46 PM EST Ordered additional 5 days of augmentin to what she already took of zithromax which should be effective. Should take with food to prevent diarrhea or GI upset. Please advise. * Telephone Encounter - Joycelyn Amador L.P.N. - 06/27/2016 9:[address] LUEVANO, COULD YOU PLEASE REVIEW MY TRIAGE AND PT'S CHART. SHE IS ASKING FOR ANTIBIOTIC SWITCH BUTIS WILLING TO COME IN TO BE SEEN IF NEED BE. THANK YOU. * Telephone Encounter - Joycelyn Amador L.P.N. - 06/27/2016 9:21 AM EST [facility] - Telephone Triage Documentation CHIEF COMPLAINT:Pt. Was seen by Francis Rees for cough on 06/24 and dx. With pneumonia. 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 She reports to me that she was hospitalized eight times in 10 months for this and was afraid to continue on the z.pack. Francis switched her antibiotic yesterday to doxy. She has not started this as she looked it up and spoke to her pharmacist regarding toxicity and there is a listed side effect of neuropathy with the doxy,.. She would like to know if someone can switch her antibiotic. She has taken augmentin in the past without difficulties as well as amox/pcn. She reports she is improving. Coughing less. Using her inhaler/updraft and taking the prednisone. No fever since . PCP: Millicent Chapa LMP/EDC:na Current Outpatient Prescriptions Medication Sig Dispense Refill ??? Doxycycline Monohydrate (ADOXA) 100 MG tablet Take 1 Tab by mouth 2 times daily. 20 Tab 0 ??? Ipratropium-Albuterol (DUONEB) 0.5-2.5 (3) MG/3ML Solution Inhale 3 mL into the lungs once. 1 mL 0 ??? azithromycin (ZITHROMAX) 250 MG tablet Take 2 PO on day 1. Take 1 PO days 2- 5 6 Tab 0 ??? predniSONE (DELTASONE) 20 MG tablet Take 2 Tabs by mouth daily. 10 Tab 0 ??? ALBUTEROL SULFATE (PROAIR HFA) 108 (90 BASE) MCG/ACT AERS Inhale 2 Puffs into the lungs every 4hours as needed for Cough or Wheezing. 1 Inhaler 1 No current facility-administered medications for this visit. Allergies: Macrodantin; Mandelamine; Bees; Cipro hc; Cogentin; Compazine; Gluten; Quinolones; Shellfish; Shellfish-derived products; and Sulfa drugs Patient Active Problem List Diagnosis Code ??? 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 Anxiety F41.9 ??? Weight Loss R63.4 ??? Adhesive capsulitis of shoulder M75.00 ??? Muscle weakness (generalized) M62.81 ??? Abnormal chest x-ray R93.8 ??? Diverticulosis K57.90 DISPOSITION:Call referred to Provider REFERENCE:Sent to Dr. Luevano for review and consideration. CALLER UNDERSTANDS & AGREES WITH ADVICE:YES * Telephone Encounter - Mariana Spaulding - 06/27/2016 9:11 AM EST Pt thinks she is having a med reaction to something she was given thsi past week for a cough documented in this encounter Plan of Treatment Not on file documented as of this encounter Visit Diagnoses Not on filedocumented in this encounter Care Teams Magneto Electrician Relationship Specialty Start Date End Date Mariam Chapa MD [address] [place] [address] PCP - General 07/21/06 documented as of this encounter
--- OUTSIDE RECORDS SUMMARY | 2024-08-02 13:20 | XMS_ITS | Encounter Summary ---
Author Organization [facility] Address [address] [place] [address] Care Team Providers Care Grid Molder Name Role Phone Mariam Chapa MD Primary Care Provider [phone] [phone] Encounter Details Date Type Department Care Team Description 08/05/2015 Telephone Adult Medicine - [address] [address] Fredrick Munoz PA-C [address] [place] [address] Social History Tobacco Use Types Packs/Day Years Used Date Smoking Tobacco: Never Alcohol Use Standard Drinks/Week Comments No 0 (1 standard drink = 0.6 oz pur e alcohol) Sex Assigned at Date Recorded Not on file Job Start Date Occupation Industry Not on file Not on file Not on file documented as of this encounter Miscellaneous Notes * Telephone Encounter - Phil Leggett - 08/21/2015 10:29 AM EDT Aw[facility] records * Telephone Encounter - Fredrick Munoz PA-C - 08/20/2015 8:30 AM EDT Please recheck if any fax received. Thank you * Telephone Encounter - Eloise Davis M.A. - 08/06/2015 1:21 PM EST Fyi Records requested via fax. T:[phone] and F:[phone] * Telephone Encounter - Fredrick Munoz PA-C - 08/05/2015 6:44 PM EST Patient states that within the last 2 weeks she went to [facility] outpatient pavilion and had x-rays and blood work performed. Please contact [facility] to see if any results to be forwarded to us. documented in this encounter Plan of Treatment Not on file documented as of this encounter Visit Diagnoses Not on filedocumented in this encounter Care Teams Grid Molder Relationship Specialty Start Date End Date Mariam Chapa MD [address] [place] [address] PCP - General 07/21/06 documented as of this encounter
--- OUTSIDE RECORDS SUMMARY | 2024-08-02 13:20 | XMS_ITS | Encounter Summary ---
Author Organization [facility] Address [address] [place] [address] Care Team Providers Care Data Acquisition Technician Name Role Phone Mariam Chapa MD Primary Care Provider [phone] [phone] Reason for Visit * Reason Onset Date Comments Orders Call 04/17/2022 Encounter Details Date Type Department Care Team Description 04/17/2022 Telephone Adult Medicine - [place] [address] [place] [address] Mariam Chapa MD [address] [place] [address] Orders Call Social History Tobacco Use Types Packs/Day Years [...] encounter Miscellaneous Notes * Telephone Encounter - Jaocb Harding - 04/21/2022 8:57 AM EST MRI order faxed to [phone] per patients request * Telephone Encounter - Mariam Chapa MD - 04/20/2022 12:04 PM EST I printed the MRI please fax as per patient's request we will call patient about her x-rays * Telephone Encounter - Dena Naranjo - 04/20/2022 11:32 AM EST Patient is calling back. She would like the MRI order faxed over to [phone]. She is requestinga call back about her xray's. She would also like to like Dr. Cruz know she went to [facility] on 04/17/22. She was in a lot of pain. They did not do anything for her. * Telephone Encounter - Mariam Chapa MD - 04/17/2022 2:05 PM EST We do not have verbal so cannot talk to her * Telephone Encounter - Dena Naranjo - 04/17/2022 1:27 PM EST Patient's contract specialist Katerine from [employer] is calling. She is requesting an update about this. She is not on the patients verbal release. * Telephone Encounter - Gloria Pal - 04/17/2022 12:06 PM EST Patient is requesting her MRI order and any supporting documentation be faxed to [facility] ATTN Briana Rueda Knee Claim Number [id number] FAX [phone] documented in this encounter Plan of Treatment Not on file documented as of this encounter Visit Diagnoses Diagnosis Pain and swelling of knee, left- Primary documented in this encounter Care Teams Data Acquisition Technician Relationship Specialty Start Date End Date Mariam Chapa MD [address] [place] [address] PCP - General 07/21/06 documented as of this encounter
--- OUTSIDE RECORDS SUMMARY | 2024-08-02 13:20 | XMS_ITS | Encounter Summary ---
Author Organization [facility] Address [address] [place] [address] Care Team Providers Care College Advisor Name Role Phone Mariam Chapa MD Primary Care Provider +1 [phone] Reason for Visit * Reason Onset Date Comments Provider Call Back 02/12/2022 Orders Call 02/12/2022 MRI Encounter Details Date Type Department Care Team Description 02/12/2022 Telephone Adult Medicine - [place] [address] [place] [address] Mariam Chapa MD [address] [place] [address] Provider Call Back; Orders Call (MRI) Social History Tobacco Use Types Packs/Day Years [...] Recorded In the last 10 days, have thu u been in contact with someone who was confirmed or suspected to have Coronavirus/COVID-19? No / Unsure 02/11/2022 9:37 AM EDT documented as of this encounter Miscellaneous Notes * Telephone Encounter - Mariam Chapa MD - 02/13/2022 9:17 AM EDT Okay to wait on the prednisone . I want to wait on getting an MRI till she is finished with the prednisone * Telephone Encounter - Gloria Pal - 02/12/2022 4:58 PM EDT Patient is calling to request to see if Dr Chapa would please reconsider and order an MRI for patients left knee to make sure pt hasn't damaged the muscle around her knee. Pt reports she is in a lot of pain. [facility] and patient wants to know if she should wait to start the prednisone? Patient is requesting a call back documented in this encounter Plan of Treatment Not on file documented as of this encounter Visit Diagnoses Not on filedocumented in this encounter Care Teams College Advisor Relationship Specialty Start Date End Date Mariam Chapa MD [facility] [place] [address] PCP - General 07/21/06 documented as of this encounter
--- OUTSIDE RECORDS SUMMARY | 2024-08-02 13:20 | XMS_ITS | Encounter Summary ---
Author Organization [employer] [facility] Address [address] [place] [address] Care Team Providers Care Manager Marketing Name Role Phone Mariam Chapa MD Primary Care Provider [phone] [phone] Encounter Details Date Type Department Care Team Description 02/11/2022 Orders Only Adult Medicine - [place] [address] [place] [address] Mariam Chapa MD [address] [place] [address] Social History Tobacco Use Types Packs/Day Years [...] on filedocumented in this encounter Care Teams Manager Marketing Relationship Specialty Start Date End Date Mariam Chapa MD [address] [place] [address] PCP - General 07/21/06 documented as of this encounter
--- OUTSIDE RECORDS SUMMARY | 2024-08-02 13:20 | XMS_ITS | Encounter Summary ---
Author Organization [facility] Address [address] [place] [address] Care Team Providers Care Coach Driver Name Role Phone Mariam Chapa MD Primary Care Provider [phone] [phone] Reason for Visit * Reason Onset Date Comments Breathing Problems 04/30/2013 Encounter Details Date Type Department Care Team Description 04/30/2013 Telephone Adult Urgent Care - [address] [address] Mariam Chapa, [address] [place] [address] Breathing Problems Social History Tobacco Use Types Packs/Day Years Used Date Smoking Tobacco: Never Alcohol Use Standard Drinks/Week Comments No 0 (1 standard drink = 0.6 oz pur e alcohol) Sex Assigned at Date Recorded Not on file Job Start Date Occupation Industry Not on file Not on file Not on file documented as of this encounter Miscellaneous Notes * Telephone Encounter - Basil Boykin L.P.NNereyda - 04/30/2013 2:05 PM EST Telephone Information: Patient C/O of increased arthritis pain off Lycria and prednisone for about 3 weeks C/O of rib painno chest pain ribs feel tight C/o of joint pain small finger left hand No injury Denies temp No SOBRibs feel tight when she takes a deep breath appetite and hydration good VQS bowels normal Wants anappt with Dr Chapa appt made for 05/02 at 3:30 Reinforced phone consultation and advice Reviewed with the patient S/S to watch for that would require immediate attention If symptoms worsen patient can call the triage nurse or go to the ER if needed can call 911 Patient states he/she is satisfied with information and homecare instructions he is able to verbalize the instructions given * Telephone Encounter - Harleen Cole - 04/30/2013 1:57 PM EST Symptoms patient is presenting: joint pain left pinky finger, breathing problems, chest hurts to breathe in How long has patient had these symptoms?: today PCP: Millicent Chapa Payor: AKBAR POS Plan: POS $15 [place] [id number] Product Type: POS [id number] documented in this encounter Plan of Treatment Not on file documented as of this encounter Visit Diagnoses Not on filedocumented in this encounter Care Teams Coach Driver Relationship Specialty Start Date End Date Mariam Chapa MD [facility] [place] [address] PCP - General 07/21/06 documented as of this encounter
--- OUTSIDE RECORDS SUMMARY | 2024-08-02 13:20 | XMS_ITS | Encounter Summary ---
Author Organization [facility] Address [address] [place] [address] Care Team Providers Care Career Development Director Name Role Phone Mariam Chapa MD Primary Care Provider [phone] [phone] Reason for Visit * Reason Onset Date Comments Letter 05/22/2022 Encounter Details Date Type Department Care Team Description 05/22/2022 Telephone Adult Medicine - [place] [address] [place] [address] Mariam Chapa MD [address] [place] [address] Letter Social History Tobacco Use Types Packs/Day Years [...] suspected to have Coronavirus/COVID-19? No / Unsure 05/21/2022 1:05 PM EST documented as of this encounter Miscellaneous Notes * Telephone Encounter - Arnold Ramsey - 05/22/2022 10:20 AM EST KELLY sibley [facility] called stating they did mail the letter to Dr Caruso and will fax it right now. Letter will need a signature documented in this encounter Plan of Treatment Not on file documented as of this encounter Visit Diagnoses Not on filedocumented in this encounter Care Teams Career Development Director Relationship Specialty Start Date End Date Mariam Chapa MD [address] [place] [address] PCP - General 07/21/06 documented as of this encounter
--- OUTSIDE RECORDS SUMMARY | 2024-08-02 13:20 | XMS_ITS | Encounter Summary ---
Author Organization [facility] Address [address] [place] [address] Care Team Providers Care Candy Puller Name Role Phone Mariam Chapa MD Primary Care Provider +1 [phone] Encounter Details Date Type Department Care Team Description 06/28/2016 Telephone Adult Medicine - [place] [address] [place] [address] Mariam Chapa MD [address] [place] [address] Social History Tobacco Use Types Packs/Day Years Used Date Smoking Tobacco: Never Alcohol Use Standard Drinks/Week Comments No 0 (1 standard drink = 0.6 oz pur e alcohol) Sex Assigned at Date Recorded Not on file Job Start Date Occupation Industry Not on file Not on file Not on file documented as of this encounter Miscellaneous Notes * Telephone Encounter - Basil Boykin L.P.N. - 06/28/2016 12:00 PM EST Telephone Information: Follow up night triag call Called patient left message for patient to call triage nurse documented in this encounter Plan of Treatment Not on file documented as of this encounter Visit Diagnoses Not on filedocumented in this encounter Care Teams Candy Puller Relationship Specialty Start Date End Date Mariam Chapa MD [address] [place] [address] PCP - General 07/21/06 documented as of this encounter
--- OUTSIDE RECORDS SUMMARY | 2024-08-02 13:20 | XMS_ITS | Encounter Summary ---
Author Organization [facility] Address [address] [place] [address] Care Team Providers Care Software Solutions Architect Name Role Phone Maraim Chapa MD Primary Care Provider +1 [phone] Encounter Details Date Type Department Care Team Description 03/25/2012 Home Hospice Rn Report Medical Records [address] [place] [address] Fredrick [place] MD Social History Tobacco Use Types Packs/Day [...] on filedocumented in this encounter Care Teams Software Solutions Architect Relationship Specialty Start Date End Date Mariam Chapa MD [address] [place] [address] PCP - General 07/21/06 documented as of this encounter
--- OUTSIDE RECORDS SUMMARY | 2024-08-02 13:20 | XMS_ITS | Encounter Summary ---
Author Organization [facility] Address [address] [place] [address] Care Team Providers Care Justowriter Operator Name Role Phone Mariam Chapa MD Primary Care Provider [phone] [phone] Reason for Visit * Reason Onset Date Comments other 10/23/2016 Encounter Details Date Type Department Care Team Description 10/23/2016 Telephone [place] [address] Isak Sanchez MD other Social History Tobacco Use Types Packs/Day Years [...] Miscellaneous Notes * Telephone Encounter - Mariam Cahpa MD - 10/23/2016 2:28 PM EDT stuartay * Telephone Encounter - Rosemary Deng - 10/23/2016 2:26 PM EDT Per patient she does not want to go to a panel coverer and said she already spoke to you about this. documented in this encounter Plan of Treatment Not on file documented as of this encounter Visit Diagnoses Not on filedocumented in this encounter Care Teams Justowriter Operator Relationship Specialty Start Date End Date Mariam Chapa, [address] [place] [address] PCP - General 07/21/06 documented as of this encounter
--- OUTSIDE RECORDS SUMMARY | 2024-08-02 13:20 | XMS_ITS | Encounter Summary ---
Author Organization [employer] [facility] Address [address] [place] [address] Care Team Providers Care Deputy Jailer Name Role Phone Mariam Chapa MD Primary Care Provider [phone] [phone] Encounter Details Date Type Department Care Team Description 02/22/2024 Orders Only Medical Records [address] [place] [address] Social History Tobacco Use Types Packs/Day Years [...] on file documented as of this encounter Procedures Procedure Name Priority Date/Time Associated Diagnosis Comments OUTSIDE PLAIN FILM Routine 01/30/2024 OUTSIDE VASCULAR STUDY Routine 01/28/[address] Routine 01/28/2024 OUTSIDE LAB Routine 01/28/2024 documented in this encounter Results * OUTSIDE PLAIN FILM (01/30/2024) [facility] * OUTSIDE CT (01/28/2024) [facility] * OUTSIDE LAB (01/28/2024) [facility] * OUTSIDE VASCULAR STUDY (01/28/2024) [facility] documented in this encounter Visit Diagnoses Not on filedocumented in this encounter Care Teams Deputy Jailer Relationship Specialty Start Date End Date Mariam Chapa MD [facility] [place] [address] PCP - General 07/21/06 documented as of this encounter
--- OUTSIDE RECORDS SUMMARY | 2024-08-02 13:20 | XMS_ITS | Encounter Summary ---
Author Organization [facility] Address [address] [place] [address] Care Team Providers Care Manager Trade Name Role Phone Mariam Chapa MD Primary Care Provider [phone] [phone] Reason for Visit * Reason Onset Date Comments Prior Authorization 04/06/2022 MRI- Lower E xtremity Joint/Nonjoint Encounter Details Date Type Department Care Team Description 04/06/2022 Telephone Adult Medicine - [place] [address] [place] [address] Mariam Chapa MD [address] [place] [address] Prior Authorization (MRI- Lower Extremity Joint/Nonjoint) Social History Tobacco Use Types Packs/Day Years [...] suspected to have Coronavirus/COVID-19? No / Unsure 04/06/2022 12:51 PM EST documented as of this encounter Miscellaneous Notes * Telephone Encounter - Neela Pike - 04/06/2022 8:[address] Nancy Eden, The following request MRI Lower Extremity Joint/Nonjoint, has been Denied for the following: Lower Extremity Joint/Nonjoint - MRI With and Without Contrast Non-Authorized Criteria Not Met Review Exam Withdraw Exam Clinical Rationale: Your doctor ordered an MRI of your knee because you have knee pain. An MRI is a way to take pictures of the inside of your body. This test should be used when your doctor is looking for a specific condition. These might include a broken bone or a tear in the knee. We reviewed the notes we have. Thenotes do not show that you are having this test for any of these reasons. The notes do not show what type of knee problem is suspected. Based on the information we have, this test is not medically necessary. We used [employer] [facility] Guideline titled Imaging of the Extremities to make this decision. You may conduct a Peer to Peer by calling [phone]. Ref case# [id number] Thank You Neela Villegas Auth Dept P: [phone] documented in this encounter Plan of Treatment Not on file documented as of this encounter Visit Diagnoses Not on filedocumented in this encounter Care Teams Manager Trade Relationship Specialty Start Date End Date Mariam Chapa MD [address] [place] [address] PCP - General 07/21/06 documented as of this encounter
--- OUTSIDE RECORDS SUMMARY | 2024-08-02 13:20 | XMS_ITS | Encounter Summary ---
Author Organization [facility] Address [address] [place] [address] Care Team Providers Care Shiftman Name Role Phone Mariam Chapa MD Primary Care Provider +1 [phone] Encounter Details Date Type Department Care Team Description 04/05/2012 Research Nurse Report Medical Records [address] [place] [address] Mindi Lincoln MD Social History Tobacco Use Types Packs/Day [...] on filedocumented in this encounter Care Teams Shiftman Relationship Specialty Start Date End Date Mariam Chapa MD [address] [place] [address] PCP - General 07/21/06 documented as of this encounter
--- OUTSIDE RECORDS SUMMARY | 2024-08-02 13:20 | XMS_ITS | Encounter Summary ---
Author Organization [facility] Address [address] [place] [address] Care Team Providers Care Cooker Syrup Name Role Phone Mariam Chapa MD Primary Care Provider [phone] [phone] Reason for Visit * Reason Onset Date Comments infectious disease 04/13/2022 Encounter Details Date Type Department Care Team Description 04/13/2022 Telephone Adult Medicine - [place] [address] [place] [address] Mariam Chapa, [address] [place] [address] infectious disease Social History Tobacco Use Types Packs/Day Years [...] Telephone Encounter - Raman Harley LPN - 04/17/2022 8:09 AM EST Left message for pt to please return our call * Telephone Encounter - Raman Harley LPN - 04/13/2022 4:50 PM EST Left message for pt to please return our call * Telephone Encounter - Mariam Chapa MD - 04/13/2022 4:47 PM EST Will wait for the MRI of her knee to make further decisions she is still going to be short of breath diagnosed with atypical pneumonia last week so will continue with present medical regimen * Telephone Encounter - Marcia Torres L.P.N. - 04/13/2022 2:36 PM EST Please see msg from patient Looking for your advice * Telephone Encounter - Vilma Hector - 04/13/2022 2:09 PM EST Pr checking in with her covid and she still has shortness of breath - pt tapering down on her prednisone - now her knee pain is bad workmans comp from a fall - knee quite swollen and red - numbness as well - taking tylenol and diclofenac gel as needed for the knee- looking for Tj Love advice PT ?? COMPARTMENTS DISEASE with the numbness - set up a WC chart today documented in this encounter Plan of Treatment Not on file documented as of this encounter Visit Diagnoses Not on filedocumented in this encounter Care Teams Cooker Syrup Relationship Specialty Start Date End Date Mariam Chapa MD [address] [place] [address] PCP - General 07/21/06 documented as of this encounter
--- OUTSIDE RECORDS SUMMARY | 2024-08-02 13:20 | XMS_ITS | Patient Health Record ---
Author Organization Ernie Chen MD Address [address] [place], [place] [id number] Care Team Providers Care Color Paste Mixing Supervisor Name Role Phone Ernie Chen Primary Care Provider [phone] Allergies Allergen (clinical drug ingredient) Drug/Non Drug Allergy documented on EMR Reaction Allergy Type Onset Date Status Substance with sulfonamide structure and antibacterial mechanism of action (substance) Sulfa Antibiotics rash Drug Allergy Active ciprofloxacin Cipro Unknown Drug Allergy Act vaishali Reason For Referral No Information Medications Medication SIG (Take, Route, Frequency, Duration) Notes Start Date End Date Status Albuterol Sulfate HFA 108 (90 Base) MCG/ACT 1 puff as needed Inhalation every 4 hrs Active Ibuprofen 600 MG 1 tablet with food o r milk as needed Orally twice a day Active Tylenol 325 MG 1 tablet as needed O rally every 6 hrs Active Ativan 0.5 MG 1 tablet at bedtime as needed Orally twice a day Active Social History Tobacco Use: Social History Observation Description Date Details (start date - stop date) Never Smoker NA - NA AUDIT-C (Standard) Question Answer Notes Did you have a drink containing alcohol in the p ast year? No Points 0 Interpretation Negative Tobacco Control (Standard) Question Answer Notes Tobacco use: Nonsmoker Problems Problem Type SNOMED Code ICD Code Onset Dates Problem Status W/U Status Risk Notes Problem 17309742 Other chronic pain (G89.29) Active confirmed Problem 047333488 Generalized arthritis (M19.90) Active confirmed Vital Signs Blood pressure diastolic 58 mm Hg 07/14/2024 Height 61 in 07/14/2024 Blood pressure systolic 104 mm Hg 07/14/2024 Weight 100 lbs 07/14/2024 BMI 18.89 kg/m2 07/14/2024 Encounters Encounter Location Date Provider Diagnosis Ernie Chen MD [address] [place], [place] [id number] 07/14/2024 Ernie Chen Generalized arthritis M19.90 ; Bilateral swelling of feet M79.89 ; Other chronic pain G89.29 ; Pain in right ankle and joints of right foot M25.571 and Pain in left ankle and joints of left foot M25.572 Assessments Encounter Date Diagnosis (ICD Code) Assessment Notes Treatment Notes Treatment Clinical Notes Section Notes 07/14/2024 Generalized arthritis (ICD-10 - M19.90) very difficult history. has been seeing multiple consults for these problems and is unclear to me what is causing them. her history was very difficult to follow but it seems that she is seeing the approprate consultants. she has multiple quesitons about the meds and i have recommended that she speak with the specialist that has prescribed them 07/14/2024 Bilateral swelling of feet (ICD-10 - M79.89) is cutting down on nsaids due to swelling if feet 07/14/2024 Other chronic pain (ICD-10 - G89.29) 07/14/2024 Pain in right ankle and joints of right foot (ICD-10 - M25.571) examination of these joints is normal. will obtain the labs and consults from the specialist. she says that she just wants a primary to receive all the informalton from the specialists 07/14/2024 Pain in left ankle and joints of left foot (ICD-10 - M25.572) to try lyrica again Plan Of Treatment Next Appt Details Provider Name:Ernie lozano, 08/11/2024 10:45:00 AM, [address], [address], [place], [place], [id number], Insurance Providers Payer Name Payer Address Payer Phone Subscriber Number Group Number Insured Name Patient Relationship to Insured Coverage Start Date Coverage End Date [employer] [address] [place], [place] [id number] Ruby Casanova Self - patient is the insured
--- OUTSIDE RECORDS SUMMARY | 2024-08-02 13:20 | XMS_ITS | Encounter Summary ---
Author Organization [facility] Address [address] [place] [address] Care Team Providers Care Barrel Rifler Hook Name Role Phone Mariam Chapa MD Primary Care Provider [phone] [phone] Reason for Visit * Reason Onset Date Comments Orders Call 07/02/2020 done on 07/04 Encounter Details Date Type Department Care Team Description 07/02/2020 Telephone Adult Medicine - [place] [address] [place] [address] Mariam Chapa MD [address] [place] [address] Orders Call (done on 07/04) Social History Tobacco Use Types Packs/Day Years [...] Miscellaneous Notes * Telephone Encounter - Vilma Jasso M.A. - 07/02/2020 3:15 PM EST Lab orders faxed to [facility] [address]. * Telephone Encounter - Maria Luisa Alvarez - 07/02/2020 2:23 PM EST Patient calling to request labs be ordered: What lab work is patient requesting? Labs ordered on 07/04. Pt looking for this to be sent to [facility], pt does not know the fax, pt states call number is [phone] Does patient have an upcoming appointment, if yes when and WITH WHO? no Patients PCP is: Millicent Chapa documented in this encounter Plan of Treatment Not on file documented as of this encounter Visit Diagnoses Not on filedocumented in this encounter Care Teams Barrel Rifler Hook Relationship Specialty Start Date End Date Mariam Chapa MD [address] [place] [address] PCP - General 07/21/06 documented as of this encounter
--- OUTSIDE RECORDS SUMMARY | 2024-08-02 13:20 | XMS_ITS | Encounter Summary ---
Author Organization [facility] Address [address] [place] [address] Care Team Providers Care Configuration Management Administrator Name Role Phone Mariam Chapa MD Primary Care Provider [phone] -[phone] Encounter Details Date Type Department Care Team Description 08/30/2014 Attending Urologist Report Medical Records [address] [place] [address] Daniel Rincon Social History Tobacco Use Types [...] on filedocumented in this encounter Care Teams Configuration Management Administrator Relationship Specialty Start Date End Date Mariam Chapa, [address] [place] [address] PCP - General 07/21/06 documented as of this encounter
--- OUTSIDE RECORDS SUMMARY | 2024-08-02 13:20 | XMS_ITS | Encounter Summary ---
Author Organization [facility] Address [address] [place] [address] Care Team Providers Care Carpet Renovator Name Role Phone Mariam Chapa MD Primary Care Provider +1 -[phone] Encounter Details Date Type Department Care Team Description 07/22/2015 Fisher Clam Report Medical Records [address] [place] [address] [facility] Medical Social History Tobacco Use Types Packs/Day Years [...] on filedocumented in this encounter Care Teams Carpet Renovator Relationship Specialty Start Date End Date Mariam Chapa, [address] [place] [address] PCP - General 07/21/06 documented as of this encounter
--- OUTSIDE RECORDS SUMMARY | 2024-08-02 13:20 | XMS_ITS | Encounter Summary ---
Author Organization [facility] Address [address] [place] [address] Care Team Providers Care Direct Support Staff Name Role Phone Millicent Chapa MD Primary Care Prov ider Encounter Details Date Type Department Care Team ([facility] Contact Info) Description 07/11/2024 Telephone Adult Medicine [facility] [address] [place] [phone] Fredrick Munoz PA [address] [place] [address] Social History Tobacco Use Types Packs/Day Years [...] 1:39 PM EST Sent fax over to [facility] for above records with success. * TENISHA Soliz - 07/11/2024 2:43 PM EST Please request notes from [place] [facility], [place] [facility] documented in this encounter Plan of Treatment Upcoming Encounters Date Type Department Care Team (Late st Contact Info) Description 08/17/2024 9:30 AM EDT Office Visit Adult Medicine [facility] [address] [place] [phone] Fredrick Munoz PA [address] [place], [place] 09/27/2024 8:30 AM EDT Office Visit [facility] [address] [place] [phone] Millicent Chapa MD [address] [place], [place] documented as of this encounter Visit Diagnoses Not on filedocumented in this encounter Care Teams Direct Support Staff Relationship Specialty Start Date End Date Millicent Chapa MD [address] [place], [place] PCP - General 07/21/06 documented as of this encounter
--- OUTSIDE RECORDS SUMMARY | 2024-08-02 13:20 | XMS_ITS | Encounter Summary ---
Author Organization [facility] Address [address] [place] [address] Care Team Providers Care Supervisor Core Shop Name Role Phone Mariam Chapa MD Primary Care Provider +1 -[phone] Encounter Details Date Type Department Care Team Description 09/29/2010 Night Triage Doc Medical Records [address] [place] [address] Abstract, Provider Social History Tobacco Use Types [...] on filedocumented in this encounter Care Teams Supervisor Core Shop Relationship Specialty Start Date End Date Mariam Chapa, [address] [place] [address] PCP - General 07/21/06 documented as of this encounter
--- OUTSIDE RECORDS SUMMARY | 2024-08-02 13:20 | XMS_ITS | Encounter Summary ---
Author Organization [facility] Address [address] [place] [address] Care Team Providers Care Compensation Consultant Name Role Phone Mariam Chapa MD Primary Care Provider +1 -[phone] Encounter Details Date Type Department Care Team Description 11/14/2014 Health Information Coder Report Medical Records [address] [place] [address] Social History Tobacco Use Types Packs/Day Years [...] on filedocumented in this encounter Care Teams Compensation Consultant Relationship Specialty Start Date End Date Mariam Chapa MD [address] [place] [address] PCP - General 07/21/06 documented as of this encounter
--- OUTSIDE RECORDS SUMMARY | 2024-08-02 13:20 | XMS_ITS | Encounter Summary ---
Author Organization [facility] Address [address] [place] [address] Care Team Providers Care Washing Machine Striper Name Role Phone Mariam Chapa MD Primary Care Provider [phone] [phone] Reason for Visit * Reason Onset Date Comments Letter 05/20/2022 Work note/ covid releated Encounter Details Date Type Department Care Team Description 05/20/2022 Telephone Adult Medicine - [place] [address] [place] [address] Mariam Chapa MD [address] [place] [address] Letter (Work note/ covid releated ) Social History Tobacco Use Types Packs/Day [...] PM EST documented as of this encounter Plan of Treatment Not on file documented as of this encounter Visit Diagnoses Not on filedocumented in this encounter Care Teams Washing Machine Striper Relationship Specialty Start Date End Date Mariam Chapa MD [address] [place] [address] PCP - General 07/21/06 documented as of this encounter
--- OUTSIDE RECORDS SUMMARY | 2024-08-02 13:20 | XMS_ITS | Encounter Summary ---
[facility] Address [address] [place] [address] Care Team Providers Care Skinning Machine Feeder Name Role Phone Mariam Chapa MD Primary Care Provider +1 -[phone] Encounter Details Date Type Department Care Team Description 01/18/2014 Orders Only Adult Medicine [address] [address] Ariana Fox DO Social History Tobacco Use Types Packs/Day Years [...] on filedocumented in this encounter Care Teams Skinning Machine Feeder Relationship Specialty Start Date End Date Mariam Chapa MD [address] [place] [address] PCP - General 07/21/06 documented as of this encounter
--- OUTSIDE RECORDS SUMMARY | 2024-08-02 13:20 | XMS_ITS | Encounter Summary ---
Author Organization [facility] Address [address] [place] [address] Care Team Providers Care Piece Dye Worker Name Role Phone Mariam Chapa MD Primary Care Provider +1 -[phone] Encounter Details Date Type Department Care Team Description 12/05/2014 Biofuels Product Manager Report Medical Records [address] [place] [address] Daniel Rincon Social History Tobacco Use Types [...] on filedocumented in this encounter Care Teams Piece Dye Worker Relationship Specialty Start Date End Date Mariam Chapa, [address] [place] [address] PCP - General 07/21/06 documented as of this encounter
--- OUTSIDE RECORDS SUMMARY | 2024-08-02 13:20 | XMS_ITS | Encounter Summary ---
Author Organization [facility] Address [address] [place] [address] Care Team Providers Care Furniture Decals Inspector Name Role Phone Mariam Chapa MD Primary Care Provider [phone] [phone] Reason for Visit * Reason Onset Date Comments APPOINTMENT 02/24/2024 Encounter Details Date Type Department Care Team Description 02/24/2024 Telephone Adult Medicine - [place] [address] [place] [address] Mariam Chapa MD [address] [place] [address] APPOINTMENT Social History Tobacco Use Types Packs/Day Years [...] encounter Miscellaneous Notes * Telephone Encounter - Margot Quezada M.A. - 02/24/2024 2:18 PM EDT FYI: Pt with broken tibia and cannot come into office would like appt for Wednesday changed to Telehealth. Dr Cruz out of office, changed appt based on pt's request to have a telehealth appt. * Telephone Encounter - Leonard Celestin - 02/24/2024 8:47 AM EDT Caller requesting call back from provider: Is the caller the patient? YES If caller is not the patient, what is the callers name? N/A Callers relationship to patient? N/A If person calling is not the patient themselves, is there a verbal release in FYI or permanent comments for this person: YES Reason for call back: Pt has an appt tomrrow with at 2:30, pt is calling as she fractured her tibia and is wondering if the appt can be switched to a telehealth. Caller offered to speak with the nurse for assistance: YES Response: Patient offered to speak with nurse for assistance and patient agreed. Message forwarded to nurse. documented in this encounter Plan of Treatment Not on file documented as of this encounter Visit Diagnoses Not on filedocumented in this encounter Care Teams Furniture Decals Inspector Relationship Specialty Start Date End Date Mariam Chapa MD [facility] [place] [address] PCP - General 07/21/06 documented as of this encounter
--- OUTSIDE RECORDS SUMMARY | 2024-08-02 13:20 | XMS_ITS | Encounter Summary ---
Author Organization [facility] Address [address] [place] [address] Care Team Providers Care Senior Network Security Engineer Name Role Phone Mariam Chapa MD Primary Care Provider [phone] [phone] Reason for Visit * Reason Onset Date Comments Letter 07/16/2022 Encounter Details Date Type Department Care Team Description 07/16/2022 Telephone Adult Medicine - [place] [address] [place] [address] Mariam Chapa, [address] [place] [address] Letter Social History Tobacco Use Types Packs/Day [...] In the last 10 days, have thu renteria been in contact with someone who was confirmed or suspected to have Coronavirus/COVID-19? No / Unsure 07/13/2022 10:16 AM EST documented as of this encounter Miscellaneous Notes * Telephone Encounter - Lynsey Palma - 07/21/2022 1:26 PM EST Called [email or web address] to let her know to fax it to [phone]. * Telephone Encounter - Lynsey Palma - 07/21/2022 12:29 PM EST ITALIA still not received. Will call patient to have her send to the fax near my office. * Telephone Encounter - Josefina Guerrero M.A. - 07/21/2022 11:15 AM EST Did you get confirmation? * Telephone Encounter - Carolina Day - 07/21/2022 10:24 AM EST Patient is calling back and wants to know the status of this, patient is very upset * Telephone Encounter - Margot Quezada M.A. - 07/20/2022 3:01 PM EST Pt is calling back regarding her letter being faxed to her employer. She signed an ITALIA and faxed itback. She needs this letter faxed [facility]. * Telephone Encounter - Dena Naranjo - 07/17/2022 11:38 AM EST Patient is calling back. She is stating she is faxing over the ITALIA to the check in fax number. * Telephone Encounter - Mariam Chapa MD - 07/16/2022 10:57 AM EST This is exactly what I did for her before may be she was looking at an old letter anyways I have reviewed the letter and signed it please fax as she is requesting * Telephone Encounter - Josefina Guerrero M.A. - 07/16/2022 10:15 AM EST Patient states at her last office visit she was given a letter by pcp that needed an adjustment. I re-typed the letter word for word from patient and will give to pcp to review and sign. This letter needs to be faxed to her employer at [employer] ATT: Ofelia RAMOS [phone]. documented in this encounter Plan of Treatment Not on file documented as of this encounter Visit Diagnoses Not on filedocumented in this encounter Care Teams Senior Network Security Engineer Relationship Specialty Start Date End Date Mariam Chapa MD [facility] [place] [address] PCP - General 07/21/06 documented as of this encounter
--- OUTSIDE RECORDS SUMMARY | 2024-08-02 13:20 | XMS_ITS | Encounter Summary ---
Author Organization [facility] Address [address] [place] [address] Care Team Providers Care Scalder Name Role Phone Mariam Chapa MD Primary Care Provider [phone] [phone] Encounter Details Date Type Department Care Team Description 08/12/2022 Telephone Adult Medicine - [place] [address] [place] [address] Fredrcik Munoz PA-C [address] [place] [address] Social History Tobacco Use Types Packs/Day Years [...] Telephone Encounter - Margot Quezada M.A. - 08/12/2022 11:32 AM EDT Pt is a 30 minute pt please r/s pt to a correct time slot. thanks documented in this encounter Plan of Treatment Not on file documented as of this encounter Visit Diagnoses Not on filedocumented in this encounter Care Teams Scalder Relationship Specialty Start Date End Date Mariam Chapa MD [address] [place] [address] PCP - General 07/21/06 documented as of this encounter
--- OUTSIDE RECORDS SUMMARY | 2024-08-02 13:20 | XMS_ITS | Encounter Summary ---
Author Organization [facility] Address [address] [place] [address] Care Team Providers Care Brood Hatchery Manager Name Role Phone Mariam Chapa MD Primary Care Provider +1 [phone] Reason for Visit * Reason Onset Date Comments other 05/05/2022 Encounter Details Date Type Department Care Team Description 05/05/2022 Telephone Adult Medicine - [place] [address] [place] [address] Mariam Chapa MD [address] [place] [address] other Social History Tobacco Use Types Packs/Day [...] Telephone Encounter - Mariam Chapa MD - 05/05/2022 1:10 PM EST Noted * Telephone Encounter - Marcia Torres L.P.N. - 05/05/2022 12:46 PM EST FYI referral to PT is for strength training gait training,minimal rom knee,s/p covid * Telephone Encounter - Marcia Torres L.P.N. - 05/05/2022 12:34 PM EST Advised pt: referrals have been entered for endocrinology,they will contact her Also dexa was ordered,she can call and schedule Pt states she will take Vit D 1000 otc Asking for referral to Pt (see previous msg))to [facility] On small dose lyrica 25 mg and stopped toradol due to ankle edema,which has resolved after stopping Did ask for refill on lyrica 25 mg? No available appts in the near future * Telephone Encounter - Vilma Hector - 05/05/2022 10:36 AM EST Pt has an appt on 09/17 nothing sooner - pt would like physical therapy ordered for her knees,gate strength post covid as well to [facility] in [place] fax order there post covid and neuropthy in her feet and hands and knees - also pt needs a bone density ordered for osteoporosis - referral to endocrinology - pt needs 3 referrals total * Telephone Encounter - Marcia Torres L.P.N. - 05/05/2022 9:44 AM EST Left message to call back. * Telephone Encounter - Mariam Chapa MD - 05/05/2022 9:30 AM EST We will order her some lorazepam most of the requests are being addressed please have patient make an appointment to address the other issues * Telephone Encounter - Marcia Torres L.P.N. - 05/05/2022 9:21 AM EST Please see pt requests I see some of these requests have already been acted on * Telephone Encounter - Arnold Ramsey - 05/05/2022 8:45 AM EST Patient called in again asking: > asking to refill Lorazepam because it helps her the best > asking for a paper for two more weeks off from work > asking to order Physical Therapy to [facility] ([address] [address]) > asking to order a referral to Endo > asking to order Vitamin D for her until she will get seen in Endo > asking for a call back for EMG results > also asking to order a Dexa Scan for her documented in this encounter Plan of Treatment Not on file documented as of this encounter Visit Diagnoses Not on filedocumented in this encounter Care Teams Brood Hatchery Manager Relationship Specialty Start Date End Date Mariam Chapa MD [address] [place] [address] PCP - General 07/21/06 documented as of this encounter
--- OUTSIDE RECORDS SUMMARY | 2024-08-02 13:20 | XMS_ITS | Encounter Summary ---
Author Organization [facility] Address [address] [place] [address] Care Team Providers Care Magnetic Prospecting Supervisor Name Role Phone Mariam Chapa MD Primary Care Provider +1 [phone] Encounter Details Date Type Department Care Team Description 08/13/2014 ENGINEERING CLERK/[place] Report Medical Records [address] [place] [address] Abstract, Provider Social History Tobacco Use Types [...] on filedocumented in this encounter Care Teams Magnetic Prospecting Supervisor Relationship Specialty Start Date End Date Mariam Chapa, [address] [place] [address] PCP - General 07/21/06 documented as of this encounter
--- OUTSIDE RECORDS SUMMARY | 2024-08-02 13:20 | XMS_ITS | Encounter Summary ---
Author Organization [facility] Address [address] [place] [address] Care Team Providers Care Service Advocate Contact Name Role Phone Mariam Chapa MD Primary Care Provider +1 [phone] Reason for Visit * Reason Onset Date Comments er follow up 06/19/2022 Encounter Details Date Type Department Care Team Description 06/19/2022 Telephone Adult Medicine - [place] [address] [place] [address] Mariam Chapa, [address] [place] [address] er follow up Social History Tobacco Use Types Packs/Day Years [...] suspected to have Coronavirus/COVID-19? No / Unsure 06/18/2022 8:53 AM EST documented as of this encounter Miscellaneous Notes * Telephone Encounter - Raman Harley LPN - 06/19/2022 10:58 AM EST Please call pt and let her know she is scheduled with Dr Eden on 07/13/22 at 10:30 * Telephone Encounter - Yareli Morillo - 06/19/2022 10:37 AM EST Pt discussed with bsr that she feels she does need to see dr. Eden for her overall health. 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 Asking that triage give pt a call in the afternoon. Appt 09/17 has been cancelled, as it was booked incorrectly and was no longer a necessary appt. documented in this encounter Plan of Treatment Not on file documented as of this encounter Visit Diagnoses Not on filedocumented in this encounter Care Teams Service Advocate Contact Relationship Specialty Start Date End Date Mariam Chapa MD [address] [place] [address] PCP - General 07/21/06 documented as of this encounter
--- OUTSIDE RECORDS SUMMARY | 2024-08-02 13:20 | XMS_ITS | Encounter Summary ---
[facility] Address [address] [place] [address] Care Team Providers Care Broadcast Meteorologist Name Role Phone Mariam Chapa MD Primary Care Provider [phone] [phone] Reason for Visit * Reason Onset Date Comments REFERRAL 08/31/2016 Encounter Details Date Type Department Care Team Description 08/31/2016 Telephone Rheumatology - [address] [address] Annie Paz MD REFERRAL Social History Tobacco Use Types Packs/Day [...] encounter Miscellaneous Notes * Telephone Encounter - Rukhsana Patterson - 08/31/2016 9:25 AM EDT Pt was referred to Rheumatology re: will request a referral to Rheumatology. Reason for referral: joint pain right shoulder(s) , both hand(s) and left hip(s) Priority: Next Available Payor: Not third-libertarian related Tried to contact patient several times by phone and sent letter to patient as well with no response, did remove patient from referral report documented in this encounter Plan of Treatment Not on file documented as of this encounter Visit Diagnoses Not on filedocumented in this encounter Care Teams Broadcast Meteorologist Relationship Specialty Start Date End Date Mariam Chapa MD [address] [place] [address] [place] [address] PCP - General 07/21/06 documented as of this encounter
--- OUTSIDE RECORDS SUMMARY | 2024-08-02 13:20 | XMS_ITS | Encounter Summary ---
Author Organization [facility] Address [address] [place] [address] Care Team Providers Care Development Lead Name Role Phone Mariam Chapa MD Primary Care Provider [phone] [phone] Reason for Visit * Reason Comments E-prescribe Rx Request Encounter Details Date Type Department Care Team Description 02/08/2013 Refill Adult Medicine - [place] [address] [place] [address] Mariam Chapa, [address] [place] [address] E-prescribe Rx Request Social History Tobacco Use Types Packs/Day Years Used Date Smoking Tobacco: Never Alcohol Use Standard Drinks/Week Comments No 0 (1 standard drink = 0.6 oz pur e alcohol) Sex Assigned at Date Recorded Not on file Job Start Date Occupation Industry Not on file Not on file Not on file documented as of this encounter Miscellaneous Notes * Telephone Encounter - Berenice Hernández - 02/08/2013 8:52 AM EDT Patient would like script to be: E-PRESCRIBED/FAXED TO PHARMACY WHEN WAS THE PATIENT'S LAST APPOINTMENT IN ADULT MEDICINE? 01/06/13 WHEN WAS THE LAST TIME THE PATIENT SAW THEIR PCP? Same as above Does patient have an upcoming appointment? Yes 04/12/13 (THE MEDICATION REQUESTED IS ON THE MED LIST ABOVE) All of the medications requested were on the CURRENT MEDS list Did you check the Pharmacy information above?: YES Patient wants: 30 -day supply Is this a mail order prescription request ? NO Patients current insurance carrier is: Payor: BIN/FRANNIE POS Plan: POS $15 [place] [id number] Product Type: POS [id number] documented in this encounter Plan of Treatment Not on file documented as of this encounter Visit Diagnoses Not on filedocumented in this encounter Care Teams Development Lead Relationship Specialty Start Date End Date Mariam Chapa, [address] [place] [address] PCP - General 07/21/06 documented as of this encounter
--- OUTSIDE RECORDS SUMMARY | 2024-08-02 13:20 | XMS_ITS | Encounter Summary ---
[facility] Address [address] [place] [address] Care Team Providers Care Line Appliance Assembler Name Role Phone Mariam Chapa MD Primary Care Provider +1 [phone] Encounter Details Date Type Department Care Team Description 01/30/2014 Reservoir Engineering Advisor Report Medical Records [address] [place] [address] Social History Tobacco Use Types Packs/Day Years [...] on filedocumented in this encounter Care Teams Line Appliance Assembler Relationship Specialty Start Date End Date Mariam Chapa MD [address] [place] [address] PCP - General 07/21/06 documented as of this encounter
--- OUTSIDE RECORDS SUMMARY | 2024-08-02 13:20 | XMS_ITS | Encounter Summary ---
[facility] Address [address] [place] [address] Care Team Providers Care Patient Service Technician Pst Name Role Phone Mariam Chapa MD Primary Care Provider [phone] [phone] Encounter Details Date Type Department Care Team Description 05/13/2012 Composing Room Supervisor Report Medical Records [address] [place] [address] Fredrick Carney MD Social History Tobacco Use [...] on filedocumented in this encounter Care Teams Patient Service Technician Pst Relationship Specialty Start Date End Date Mariam Chapa MD [address] [place] [address] PCP - General 07/21/06 documented as of this encounter
--- OUTSIDE RECORDS SUMMARY | 2024-08-02 13:20 | XMS_ITS | Encounter Summary ---
Author Organization [facility] Address [address] [place] [address] Care Team Providers Care Behavioral Health Worker Name Role Phone Mariam Chapa MD Primary Care Provider [phone] [phone] Reason for Visit * Reason Onset Date Comments Shoulder Pain 06/13/2014 Encounter Details Date Type Department Care Team Description 06/13/2014 Telephone Adult Medicine - [place] [address] [place] [address] Mariam Chapa, [address] [place] [address] Shoulder Pain Social History Tobacco Use Types Packs/Day [...] * Telephone Encounter - Berenice Hernández - 06/14/2014 12:49 PM EST Pt called back and stated that pcp wanted her to be on a cancellation list but I explained that we don't have one and pt can call back to check for opening's. Pt booked apt with Francis for Wednesday and she may want IV at that time if Francis feels as though she is dehydrated. I wasn't sure this apt was needed but pt feel's that pcp want's her to see someone. Pt will call back to try and get an apt with pcp. * Telephone Encounter - Mariam Chapa MD - 06/14/2014 12:21 PM EST Talked to patient today for 20 min * Telephone Encounter - Sara Maria L.P.N. - 06/14/2014 9:55 AM EST Pt c/o continued pain in shoulder. Took her dilaudid this am which caused her to feel lightheaded and weak for approx 12 hour and had no relief from pain sx. Pt having severe nausea due to pain and is having to force herself to to take in fluids. Pt feels that she is dehydrated and need IV fluids in office. C/o severe weakness. Does not want change in pain medication. Wants pcp advise. Spoke with pcp who states she will contact pt today to discuss. Pt contacted and advised of this. * Telephone Encounter - Berenice Hernández - 06/14/2014 9:34 AM EST Pt calling back regarding her pain in shoulder. Pt can't be seen with ortho until 07-11-14 and pt isn't sure what to do with the pain. Pt doesn't want any more pain medication, please advise * Telephone Encounter - Francis Rees PA-C - 06/13/2014 4:58 PM EST She will need an appointment for this. Dr. Eden has an appointment opening tomorrow as well as [place]. Please book her with one of these appointments. Please do not double book her on my schedule. Thank you. * Telephone Encounter - Raman Harley LPN - 06/13/2014 2:55 PM EST Pt wants to know if provider can order sed, rate, bmp, and rheum fact , also wants to know if she can have IV fluids here in the office , please advise , thank you , pt has not spoke to orthopedist yet has an appointment in July , pt has tried to force herself to eat , had a couple of teaspoonsof peanut butter and tuna fish last night , * Telephone Encounter - Myriam Prater R.N. - 06/13/2014 2:49 PM EST Called patient. Got number identified voicemail. Left message for patient to return call. * Telephone Encounter - Francis Rees PA-C - 06/13/2014 2:22 PM EST Has she been able to speak with her orthopedist? Also, it is very important that she force herself to push fluids and try to get some calories as she will only feel worse as she does not do this. Please advise. Thank you. * Telephone Encounter - Myriam Prater R.N. - 06/13/2014 1:53 PM EST Encounter sent to Niru for recommendation. * Telephone Encounter - Kennedi Bird - 06/13/2014 1:26 PM EST Symptoms patient is presenting: was seen on Wednesday by Francis and was told to call back in a couple ofdays to see how she is doing. States the small dose of pain medication he gave her is giving her some relief but she feels very tired and is not eating or drinking. When she was in a meeting at work today she felt lightheaded and shaky. States the pain is worsening and feels awful. When driving shehad an episode of her mouth feeling very dry and had a hard time opening it. States she is having trouble functioning How long has patient had these symptoms?: PCP: Millicent Chapa Payor: BIN/FRANNIE POS / Plan: PPO $15 [place] [id number] / Product Type: PPO [id number] documented in this encounter Plan of Treatment Not on file documented as of this encounter Visit Diagnoses Diagnosis Adhesive capsulitis of shoulder, right- Primary documented in this encounter Care Teams Behavioral Health Worker Relationship Specialty Start Date End Date Mariam Chapa MD [address] [place] [address] PCP - General 07/21/06 documented as of this encounter
--- OUTSIDE RECORDS SUMMARY | 2024-08-02 13:20 | XMS_ITS | Encounter Summary ---
Author Organization [facility] Address [address] [place] [address] Care Team Providers Care Quality Assurance Project Manager Name Role Phone Mariam Chapa MD Primary Care Provider [phone] [phone] Encounter Details Date Type Department Care Team Description 03/31/2010 Night Triage Doc Medical Records [address] [place] [address] Abstract, Provider Social History Tobacco Use Types [...] on filedocumented in this encounter Care Teams Quality Assurance Project Manager Relationship Specialty Start Date End Date Mariam Chapa, [address] [place] [address] PCP - General 07/21/06 documented as of this encounter
--- OUTSIDE RECORDS SUMMARY | 2024-08-02 13:20 | XMS_ITS | Encounter Summary ---
[facility] Address [address] [place] [address] Care Team Providers Care Gore Cutter Name Role Phone Mariam Chapa MD Primary Care Provider +1 [phone] Encounter Details Date Type Department Care Team Description 04/14/2013 Night Triage Doc Medical Records [address] [place] [address] Abstract, Provider Social History Tobacco Use Types [...] on filedocumented in this encounter Care Teams Gore Cutter Relationship Specialty Start Date End Date Mariam Chapa, [address] [place] [address] PCP - General 07/21/06 documented as of this encounter
--- OUTSIDE RECORDS SUMMARY | 2024-08-02 13:21 | XMS_ITS | Encounter Summary ---
Author Organization [facility] Address [address] [place] [address] Care Team Providers Care Summer Law Clerk Name Role Phone Mariam Chapa MD Primary Care Provider +1 [phone] Reason for Visit * Reason Onset Date Comments other 03/06/2024 No Appetite Encounter Details Date Type Department Care Team Description 03/06/2024 Telephone Adult Medicine - [place] [address] [place] [address] Mariam Chapa MD [address] [place] [address] other (No Appetite ) Social History Tobacco Use Types Packs/Day [...] Notes * Telephone Encounter - Raman Harley RN - 03/07/2024 8:37 AM EDT Left message for pt to please return our call * Telephone Encounter - Yareli Pike - 03/06/2024 11:21 AM EDT Left Message, awaiting return phone call * Telephone Encounter - Millicent Crandall M.A. - 03/06/2024 8:39 AM EDT Called patient to follow up on previous message from 03/02/24 - pt then started crying due to having no appetite for the past 3-4 days. States she has no motivation. Has only had 2 bites of toast yesterday. Has been constipated and took miralax. Pt states something is not right with her body. Advised to wait for a call back from Triage to discuss her symptoms. Please call patient back [phone]. documented in this encounter Plan of Treatment Not on file documented as of this encounter Visit Diagnoses Not on filedocumented in this encounter Care Teams Summer Law Clerk Relationship Specialty Start Date End Date Mariam Chapa MD [address] [place] [address] PCP - General 07/21/06 documented as of this encounter
--- OUTSIDE RECORDS SUMMARY | 2024-08-02 13:21 | XMS_ITS | Encounter Summary ---
Author Organization [facility] Address [address] [place] [address] Care Team Providers Care Hand Quilter Name Role Phone Mariam Chapa MD Primary Care Provider +1 [phone] Encounter Details Date Type Department Care Team Description 08/19/2021 Nutrition Aide Report Medical Records [address] [place] [address] Abstract, Provider Social History Tobacco Use Types [...] on filedocumented in this encounter Care Teams Hand Quilter Relationship Specialty Start Date End Date Mariam Chapa MD [address] [place] [address] PCP - General 07/21/06 documented as of this encounter
--- OUTSIDE RECORDS SUMMARY | 2024-08-02 13:21 | XMS_ITS | Encounter Summary ---
Author Organization [facility] Address [address] [place] [address] Care Team Providers Care Supervisor Paper Testing Name Role Phone Mariam Chapa MD Primary Care Provider +1 -[phone] Reason for Referral * EXTERNAL (Priority) - Authorized/Booked Specialty Diagnoses / Procedures Referred By Contac t Referred To Contact ORTHOPEDICS / Orthopedic Procedures REFERRAL TO ORTHOPEDICS (IN NETWORK) Mariam Chapa MD [address] [place], [place] [address] [place] [address] [place] [address] Referral ID Status Reason Start Date Expiration Date V isits Requested Visits Authorized [id number] Authorized/B ooked 07/28/2023 07/27/2024 1 1 Encounter Details Date Type Department Care Team Description 07/28/2023 Orders Only Adult Medicine - [place] [address] [place], [place] [phone] Mariam Chapa MD [address] [place], [place] Social History Tobacco Use Types Packs/Day Years [...] filedocumented in this encounter Care Teams Supervisor Paper Testing Relationship Specialty Start Date End Date Mariam Chapa MD [address] [place] [address] PCP - General 07/21/06 documented as of this encounter
--- OUTSIDE RECORDS SUMMARY | 2024-08-02 13:21 | XMS_ITS | Encounter Summary ---
Author Organization [facility] Address [address] [place] [address] Care Team Providers Care Integrity Analyst Name Role Phone Mariam Chapa MD Primary Care Provider +1 -[phone] Encounter Details Date Type Department Care Team Description 09/27/2013 System Controller Report Medical Records [address] [place] [address] Social History Tobacco Use Types Packs/Day Years [...] on filedocumented in this encounter Care Teams Integrity Analyst Relationship Specialty Start Date End Date Mariam Chapa MD [address] [place] [address] PCP - General 07/21/06 documented as of this encounter
--- OUTSIDE RECORDS SUMMARY | 2024-08-02 13:21 | XMS_ITS | Encounter Summary ---
Author Organization [facility] Address [address] [place] [address] Care Team Providers Care Dye Lab Technician Name Role Phone Mariam Chapa MD Primary Care Provider +1 -[phone] Encounter Details Date Type Department Care Team Description 02/21/2021 Orders Only Adult Medicine - [place] [address] [place], [place] [id number] Mariam Chapa, [address] [place] [address] Lupus (HCC) (Primary Dx) Social History Tobacco Use Types Packs/Day Years Used Date Smoking Tobacco: Never Smokeless Tobacco: Never Alcohol Use Standard Drinks/Week Comments No 0 (1 standard drink = 0.6 oz pur e alcohol) Sex Assigned at Date Recorded Not on file Job Start Date Occupation Industry Not on file Not on file Not on file COVID-19 Exposure Response Date Recorded In the last month, have you been in contact with someone who was confirmed or suspected to have Coronavirus / COVID-19? Unable to assess 02/15/2021 8:33 AM EDT documented as of this encounter Plan of Treatment Scheduled Orders Name Type Priority Associated Diagnoses Orde r Schedule DT PEDIATRIC ADMIN FEE Other Routine Lupus (HCC) Ordered: 02/21/2021 documented as of this encounter Results * ANTI-PHOSPHATIDYL SERINE AB (12/02/2021 3:09 PM EDT) ANTI PHOS SERINE IGM <25 U/mL 11/28 1:39 AM EDT [facility] Comment: The antiphospholipid antibody syndrome (APS) is a clinical-pathologic correlation that includes a clinical event (e.g. arterial or venous thrombosis, morbidity) and persistent positive antiphospholipid antibodies (IgM, IgG Cardiolipin or b2GPI antibodies greater than the 99th percentile ??or a lupus anticoagulant). International consensus guidelines for APS suggest waiting at least 12 weeks before retesting to confirm antibody persistence. The Systemic Lupus International Collaborating Clinics immunological classification criteria for systemic lupus erythematosus (SLE) include testing for isotype IgA, which has yet to be incorporated into APS criteria. Low level antiphospholipid antibodies may sometimes be detected in the setting of infection, drug therapy or aging. For additional information, please refer to http://education.Gekko/faq/IWE343 (This link is being provided for informational/educational purposes only.) ?? <25 ?? Negative ??25-35 ??Equivocal- Found in small percentage of ?the healthy population ??may ?be reactive ?? >35 ?? Positive - Risk factor for thrombosis Test Performed at: [facility] [address] ? I Joceline DE JESUS, PhD, KACEY ANTIPHOS SERINE IGA <20 U/mL 12/09 1:39 AM [facility] Comment: ?? <20 ?? Negative ??20-30 ??Equivocal- Found in small percentage of ?the healthy population ??may ?be reactive ?? >30 ?? Positive - Risk factor for thrombosis ANTIPHOS SERINE IGG <10 U/mL 12/09 1:39 AM [facility] Comment: ?? <10 ?? Negative ??10-20 ??Equivocal- Found in small percentage of ?the healthy population ??may ?be reactive ?? >20 ?? Positive - Risk factor for thrombosis ?and loss 12/02/2021 3:09 PM EDT 12/02/2021 3:09 PM EDT Narrative [facility] - 12/09/2021 1:39 AM EDT Release to patient->Immediate Ch Sammi DE JESUS [facility] Performing Organization Address City/State/[facility] Co de Phone Number [facility] documented in this encounter Visit Diagnoses Diagnosis Lupus- Primary Systemic lupus erythematosus documented in this encounter Care Teams Dye Lab Technician Relationship Specialty Start Date End Date Mariam Chapa MD [facility] [place] [address] PCP - General 07/21/06 documented as of this encounter
--- OUTSIDE RECORDS SUMMARY | 2024-08-02 13:21 | XMS_ITS | Encounter Summary ---
Author Organization [facility] Address [address] [place] [address] Care Team Providers Care Eligibility Worker Name Role Phone Mariam Chapa MD Primary Care Provider +1 -[phone] Encounter Details Date Type Department Care Team Description 07/31/2021 Area Intelligence Technician Report Medical Records [address] [place] [address] Jamie Montes De Oca MD Social History Tobacco Use Types Packs/Day [...] on filedocumented in this encounter Care Teams Eligibility Worker Relationship Specialty Start Date End Date Mariam Chapa MD [address] [place] [address] PCP - General 07/21/06 documented as of this encounter
--- OUTSIDE RECORDS SUMMARY | 2024-08-02 13:21 | XMS_ITS | Encounter Summary ---
Author Organization [facility] Address [address] [place] [address] Care Team Providers Care Manager Of Product Name Role Phone Mariam Chapa MD Primary Care Provider +1 -[phone] Encounter Details Date Type Department Care Team Description 03/13/2021 Orders Only Adult Medicine - [place] [address] [place] [address] Mariam Chapa MD [address] [place] [address] Muscle weakness (generalized) Social History Tobacco Use Types Packs/Day Years [...] or suspected to have Coronavirus / COVID-19? No / Unsure 03/12/2021 9:35 AM EDT documented as of this encounter Plan of Treatment Not on file documented as of this encounter Procedures Procedure Name Priority Date/Time Associated Diagnosis Comments CHG ASSAY OF BLOOD/URIC ACID Routine 03/11/2021 Muscle weakness (generalized) documented in this encounter Results * URIC ACID (03/11/2021) 03/11/2021 Mariam Chapa MD LAB [facility] documented in this encounter Visit Diagnoses Diagnosis Muscle weakness (generalized) documented in this encounter Care Teams Manager Of Product Relationship Specialty Start Date End Date Mariam Chapa MD [address] [place] [address] [place] [address] PCP - General 07/21/06 documented as of this encounter
--- OUTSIDE RECORDS SUMMARY | 2024-08-02 13:21 | XMS_ITS | Encounter Summary ---
Author Organization [facility] Address [address] [place] [address] Care Team Providers Care Silverlight Developer Name Role Phone Mariam Chapa MD Primary Care Provider +1 -[phone] Encounter Details Date Type Department Care Team Description 07/29/2011 Middle School Tutor Report Medical Records [address] [place] [address] Vinnie Sprague Social History Tobacco Use Types Packs/Day Years [...] on filedocumented in this encounter Care Teams Silverlight Developer Relationship Specialty Start Date End Date Mariam Chapa, [address] [place] [address] PCP - General 07/21/06 documented as of this encounter
--- OUTSIDE RECORDS SUMMARY | 2024-08-02 13:21 | XMS_ITS | Clinical Summary ---
Author Organization [facility] [address] [facility] Address [address] [place] [address] Phone Care Team Providers Care Software Quality Manager Name Role Phone Millicent Chapa MD Primary [...] Active HYDROmorphone (DILAUDID) 2 mg tablet 4 025 Discontinu ed(Patient Discharge) pregabalin (LYRICA) 25 mg capsule Take 1 capsule (25 mg total) by mouth 2 (two) times a day. 4 025 Discontinu ed(Patient Discharge) zoledronic acid (RECLAST) 5 mg/100 mL piggyback 3 025 Discontinu ed(Patient Discharge) predniSONE (DELTASONE) 1 mg tablet Take 1 tablet (1 mg total) by mouth 1 (one) time each day. 30 each 3 5 025 Discontinu ed(Patient Discharge) HYDROmorphone (Dilaudid) 2 mg tablet Take 1 tablet (2 mg total) by mouth every 4 (four) hours if needed for severe pain for up to 5 days. Max Daily Amount: 12 mg 20 tablet 5 025 Discontinu ed(Reorder ) HYDROmorphone (Dilaudid) 2 mg tabletIndications: Chronic pain of left knee Take 1 tablet (2 mg total) by mouth every 4 (four) hours if needed for severe pain for up to 5 days. Max Daily Amount: 12 mg 20 tablet 5 025 Active Problems Problem Noted Date Diagnosed Date Anxiety 05/17/2024 Celiac sprue 05/17/2024 Weight loss 05/17/2024 Closed fracture of left tibial plateau 4 Chronic pain of left knee 04/23/2023 Osteopenia of left thigh 09/07/2022 Complex regional pain syndro me type 1 of left lower extremity 08/25/2022 COVID-19 telma arellano manifesting chronic muscle pain 07/13/2022 Post viral syndrome 05/28/2022 COVID-19 virus infection 04/17/2022 Overview (05/17/2024): 03/2022 Diverticulitis 09/10/2018 Asthma 03/31/2018 Overview (05/17/2024): Diagnosed in 2002 per pt Sensorineural hearing loss (SNHL) of both ears 1 05/31/2017 Overview (05/17/2024): Wears hearing aids Diverticulosis 09/29/2013 Abnormal chest x-ray 01/06/2013 Adhesive capsulitis of shoulder 01/05/2012 Muscle weakness (generalized) 01/05/2012 Encounters Date Type Department Care Team Description 07/20/2024 Telephone Adult [address] [address] Fredrick Munoz PA Medication Problem (HYDROmorphone (Dilaudid) 2 mg tablet ) 07/17/2024 Telephone Adult [address] [address] Fredrick Munoz PA Letter for School/Work 07/14/[address] [address] Millicent Subramanian MD A call back (Regarding treatment for pain); Medication Problem 07/11/2024 10:00 AM EST Office Visit Adult [address] [address] Fredrick Munoz PA Chronic pain of left knee (Primary Dx); Bilateral edema of lower extremity 07/11/2024 Telephone Adult [address] [address] Fredrick Munoz PA 07/05/2024 Telephone Adult [address] [address] Millicent Subramanian MD Joint Swelling (Ankles Swelling ) 07/03/2024 Telephone Adult [address] [phone] Millicent Subramanian MD Joint Swelling 06/20/2024 Telephone Adult [address] [phone] Millicent Subramanian MD Pain 06/15/2024 10:00 AM EST Office Visit Adult [address] [phone] Millicent Subramanian MD Closed fracture of left tibial plateau with delayed healing, subsequent encounter (Primary Dx); Chronic pain syndrome; Osteoporosis, unspecified osteoporosis type, unspecified pathological fracture presence 05/17/2024 Telephone Adult [address] [phone] Millicent Subramanian MD Knee Pain 05/16/2024 Telephone Adult [address] [phone] Millicent Subramanian MD from Last 3 Months Immunizations Name Administration Dates Next Due Influenza Quadravalent, MDCK , 0.5ml, with preservative (Flucelvax) 6mo and older 04/14/2021 99 Fahrenheit/BioNitrogen SARS-CoV-2 COVID -19, vector-nr, rS-Ad26, preservative free 03/27/2021 PPD Test 03/17/2017,02/18/2010 Surgical History Surgery Date Site/Laterality Comments VAGINAL DELIVERY PROCEDURE: ND VAGINAL DELIVERY ONLY; COMMENT: x3 Medical History [...] 9:30 AM EDT Office Visit Adult Medicine [facility] [address] [place] [address] Fredrick Munoz PA [address] [place] [address] 09/27/2024 8:30 AM EDT Office Visit Adult Medicine [facility] [address] [place] [address] Millicent Chapa MD [address] [place] [address] Health Maintenance Due Date Last Done Comments [...] pathological fracture HEPATITIS C SCREENING Routine 04/03/2019 HM PAP SMEAR Routine 12/29/2017 COLONOSCOPY Routine 10/26/2014 [...] to have osteoporosis by WHO criteria. [facility] Department of Internal Medicine recommends using [...] alternative screening schedule based on jana Mahmood., [facility] June 18, 2011 for patients with osteopenia [...] to have osteoporosis by WHO criteria. [facility] Department of Internal Medicine recommendsusing National [...] alternative screening schedule based on jana Mahmood., [facility] for patients with osteopenia (based on hip BMD T-score) is as follows: * advanced osteopenia (T scores -2.00 to -2.49), BMD testing every year * moderate osteopenia (T scores -1.50 to -1.99), BMD testing every 5years mild osteopenia or normal BMD (T scores -1.50 and higher), BMD testingevery 15 years Result [facility] Millicent Chapa MD IMG DXA PROCEDURES Final Result * Hepatitis C Screening (04/03/2019) [facility] Hepatitis C Screening abstracted Result [facility] Provider HEALTH MAINTENANCE Final Result * Pap Smear (12/29/2017) [facility] Pap smear abstracted, no interpretation Result [facility] Provider HEALTH MAINTENANCE Final Result * Colonoscopy (10/26/2014) [facility] Colonoscopy abstracted, no interpretation Anatomical Region Laterality Modality Other Result [facility] Provider HEALTH MAINTENANCE Final Result * HIV Screening (02/03/2011) [facility] HIV Screening abstracted Result [facility] Provider HEALTH MAINTENANCE Final Result from Last 3 Months or Most Recently Relevant to Health Maintenance Insurance [facility] Care Teams Software Quality Manager Relationship Specialty Start Date End Date Millicent Chapa MD [address] [place] [address] [place] [address] PCP - General 07/21/06
--- OUTSIDE RECORDS SUMMARY | 2024-08-02 13:21 | XMS_ITS | Encounter Summary ---
Author Organization [facility] Address [address] [place] [address] Care Team Providers Care Undercoat Sprayer Name Role Phone Mariam Chapa MD Primary Care Provider +1 -[phone] Reason for Visit * Reason Onset Date Comments Vomiting 12/31/2020 Encounter Details Date Type Department Care Team Description 12/31/2020 Telephone Adult Medicine - [place] [address] [place] [address] Mariam Chapa MD [address] [place] [address] Vomiting Social History Tobacco Use Types Packs/Day Years [...] Telephone Encounter - Raman Harley LPN - 01/17/2021 5:12 PM EDT Spoke to pt she is requesting a call from PCP , pt is aware PCP is out of the office until 01/20/21 * Telephone Encounter - Teressa Norman - 01/17/2021 1:53 PM EDT Pt is returning call. Please advise. * Telephone Encounter - Raman Harley LPN - 01/17/2021 10:38 AM EDT Left message for pt to please return our call * Telephone Encounter - Sil Serra - 01/17/2021 10:12 AM EDT Patient returning call. Per patient still experiencing symptoms of autoimmune flare up. Nauseous, in pain, experiencing neurologic symptoms. Really needs to speak to a nurse or a doctor about what she can do with these symptoms. Is very frustrated with the lack of answers she's been getting. Pleaseadvise. Best phone number is [phone]. * Telephone Encounter - Raman Harley LPN - 01/01/2021 9:26 AM EDT Left message for pt to please return our call * Telephone Encounter - Mariam Chapa MD - 12/31/2020 5:08 PM EDT I do not know either her blood work was within normal limits could this be anxiety I do not know what rheumatology will do given that her blood work was normal * Telephone Encounter - Raman Harley LPN - 12/31/2020 4:06 PM EDT Patient states that she has chills and body aches ,patient states that she is better in the morningbut then after any physical activity she starts to have body aches , patient was nauseous and vomited today from the pain , patient has not been in a clinical setting since 12/16/20 and was tested for covid routinely , patient will test again but does not think this is the issue , patient does not know why no one can find out what is wrong with her , patient is wondering if she should go back to rheumatology , patient does not know what to do * Telephone Encounter - Allen Goode - 12/31/2020 2:39 PM EDT Symptoms patient is presenting: Pt calling about bone and joint pain she is having pt states she [place] had to stop to vommit please advise For ALL patients calling to schedule any appointment (routine, sick visit, follow up, consult, etc.) in the outpatient setting please ask the following questions: ?? Do you have fever of higher than 101, sore throat with difficulty swallowing or severe shortnessof breath? NO If YES to any of these above symptoms, send a message to triage and do not book. Red dot. If no, an audio or video visit should be booked. ?? Have you had close contact with someone with Coronavirus in the last 14 days? NO ?? Have you traveled abroad? NO ?? Have you traveled recently to another state outside of [place], [place], [place], [place], [place], [place], [place]? NO o If yes, did you quarantine for 14 days or have a negative covid test? NO If yes to any of the above, patient is not to be scheduled in office until after 14 day quarantine or negative covid test. If pain or injury related was it due to an accident at work or from a motor vehicle accident? NO If yes, gather 3rd libertarian insurance information Date of accident/Injury: How long has patient had these symptoms?: PCP: Millicent Chapa Payor: BIN/FRANNIE POS / Plan: PPO $25 [place] [id number] / Product Type: PPO [id number] documented in this encounter Plan of Treatment Not on file documented as of this encounter Visit Diagnoses Not on filedocumented in this encounter Care Teams Undercoat Sprayer Relationship Specialty Start Date End Date Mariam Chapa MD [address] [place] [address] PCP - General 07/21/06 documented as of this encounter
--- OUTSIDE RECORDS SUMMARY | 2024-08-02 13:21 | XMS_ITS | Encounter Summary ---
Author Organization [facility] Address [address] [place] [address] Care Team Providers Care Coal Handler Name Role Phone Mariam Chapa MD Primary Care Provider +1 -[phone] Encounter Details Date Type Department Care Team Description 03/12/2023 Orders Only Medical Records [address] [place] [address] Abstract, Provider Social History Tobacco Use Types [...] suspected to have Coronavirus/COVID-19? No / Unsure 02/17/2023 1:21 PM EDT documented as of this encounter Plan of Treatment Not on file documented as of this encounter Procedures Procedure Name Priority Date/Time Associated Diagnosis Comments OUTSIDE VASCULAR STUDY Routine 02/22/2023 documented in this encounter Results * OUTSIDE VASCULAR STUDY (02/22/2023) Provider Abstract CARDIOLOGY documented in this encounter Visit Diagnoses Not on filedocumented in this encounter Care Teams Coal Handler Relationship Specialty Start Date End Date Mariam Chapa, [address] [place] [address] PCP - General 07/21/06 documented as of this encounter
--- OUTSIDE RECORDS SUMMARY | 2024-08-02 13:21 | XMS_ITS | Encounter Summary ---
Author Organization [facility] Address [address] [place] [address] Care Team Providers Care Fishing Accessories Maker Name Role Phone Mariam Chapa MD Primary Care Provider +1 -[phone] Encounter Details Date Type Department Care Team Description 03/14/2021 Hospital Medical Records [address] [place] [address] Rox Benz NP Social History Tobacco Use Types Packs/Day Years [...] on filedocumented in this encounter Care Teams Fishing Accessories Maker Relationship Specialty Start Date End Date Mariam Chapa MD [address] [place] [address] PCP - General 07/21/06 documented as of this encounter
--- OUTSIDE RECORDS SUMMARY | 2024-08-02 13:21 | XMS_ITS | Encounter Summary ---
Author Organization [facility] Address [address] [place] [address] Care Team Providers Care Nurse Case Manager Name Role Phone Mariam Chapa MD Primary Care Provider +1 -[phone] Reason for Visit * Reason Onset Date Comments radiology 05/11/2023 MRI denial Encounter Details Date Type Department Care Team Description 05/11/2023 Telephone Radiology - [place] [address] [place] [address] Mariam Chapa, [address] [place] [address] radiology (MRI denial) Social History Tobacco Use Types Packs/Day Years [...] Telephone Encounter - Mariam Chapa MD - 06/08/2023 2:16 PM EST Okay thank you for your response * Telephone Encounter - Donna Magaña - 06/08/2023 1:59 PM EST Case [id number] - does not meet medical criteria * Telephone Encounter - Mariam Chapa MD - 05/13/2023 4:42 PM EST Called [employer] to do a peer to peer review and they said the case number was wrong. Can you look into this * Telephone Encounter - Donna Magaña - 05/11/2023 11:53 AM EST MRI denied, case #[id number] [employer] phone # for P2P [phone] documented in this encounter Plan of Treatment Not on file documented as of this encounter Visit Diagnoses Not on filedocumented in this encounter Care Teams Nurse Case Manager Relationship Specialty Start Date End Date Mariam Chapa MD [address] [place] [address] PCP - General 07/21/06 documented as of this encounter
--- OUTSIDE RECORDS SUMMARY | 2024-08-02 13:21 | XMS_ITS | Encounter Summary ---
Author Organization [facility] Address [address] [place] [address] Care Team Providers Care Family Service Caseworker Name Role Phone Mariam Chapa MD Primary Care Provider +1 -[phone] Encounter Details Date Type Department Care Team Description 01/28/2024 Hospital Medical Records [address] [place] [address] [facility] Social History Tobacco Use Types Packs/Day Years [...] on filedocumented in this encounter Care Teams Family Service Caseworker Relationship Specialty Start Date End Date Mariam Chapa, [address] [place] [address] PCP - General 07/21/06 documented as of this encounter
--- OUTSIDE RECORDS SUMMARY | 2024-08-02 13:21 | XMS_ITS | Encounter Summary ---
Author Organization [facility] Address [address] [place] [address] Care Team Providers Care Engineering Drafter Name Role Phone Mariam Chapa MD Primary Care Provider +1 -[phone] Encounter Details Date Type Department Care Team Description 12/10/2020 Orders Only Adult Medicine - [place] [address] [place], [place] [phone] Mariam Chapa MD [address] [place] [address] Muscle weakness (generalized) (Primary Dx); Weight loss; Vitamin D deficiency Social History Tobacco Use Types Packs/Day Years [...] on file documented as of this encounter Results * URIC ACID (03/11/2021) 03/11/2021 Mariam Chapa MD LAB Independent IP * CBC (AUTO DIFF PLATELET) (12/18/2020) 12/18/2020 Mariam Chapa MD LAB [facility] [employer] documented in this encounter Visit Diagnoses Diagnosis Muscle weakness (generalized)- Primary Weight loss Loss of weight Vitamin D deficiency Unspecified vitamin D deficiency documented in this encounter Care Teams Engineering Drafter Relationship Specialty Start Date End Date Mariam Chapa MD [address] [place] [address] PCP - General 07/21/06 documented as of this encounter
--- OUTSIDE RECORDS SUMMARY | 2024-08-02 13:21 | XMS_ITS | Encounter Summary ---
Author Organization [facility] Address [address] [place] [address] Care Team Providers Care Specimen Boss Name Role Phone Mariam Chapa MD Primary Care Provider +1 -[phone] Reason for Visit * Reason Onset Date Comments refill request 02/16/2023 Encounter Details Date Type Department Care Team Description 02/16/2023 Refill Adult Medicine - [place] [address] [place] [address] Mariam Chapa MD [address] [place] [address] refill request Social History Tobacco Use Types Packs/Day Years [...] PM EDT documented as of this encounter Miscellaneous Notes * Telephone Encounter - Vilma Jasso M.A. - 02/16/2023 1:51 PM EDT Faxed to pharmacy * Telephone Encounter - Millicent Crandall M.A. - 02/16/2023 12:04 PM EDT Images from the original note were not included. Controlled substance contract and last issue date of medication reviewed. Patient is due for medication. Medication request (s) pended for review Last appt- 12/23/22 Next appt- Tomorrow 02/17/23 Last appt w/ PCP- same as above Pt never completed UDS ordered on 12/23/22 at appt, please advise No results found for: URBENZO, UROPIATES, UROXYCODONE, URBARBITUATE, PAINAMPHETAM, PAINCOCAINE, PAINCANNABIN DECORATIVE GREENS CUTTER * Telephone Encounter - Maria Luisa Alberts - 02/16/2023 11:52 AM EDT Refill on med list Last office visit : 12/23/22 Last time with PCP: s Next office visit : 02/17/23 documented in this encounter Plan of Treatment Not on file documented as of this encounter Visit Diagnoses Not on filedocumented in this encounter Care Teams Specimen Boss Relationship Specialty Start Date End Date Mariam Chapa MD [address] [place] [address] PCP - General 07/21/06 documented as of this encounter
--- OUTSIDE RECORDS SUMMARY | 2024-08-02 13:21 | XMS_ITS | Encounter Summary ---
Author Organization [facility] Address [address] [place] [address] Care Team Providers Care Financial Planner Name Role Phone Mariam Chapa MD Primary Care Provider +1 -[phone] Encounter Details Date Type Department Care Team Description 03/12/2021 Orders Only Adult Medicine - [place] [address] [place] [address] Mariam Chapa MD [address] [place] [address] Polymyalgia (HCC) Social History Tobacco Use Types Packs/Day Years [...] Name Priority Date/Time Associated Diagnosis Comments CHG SEDIMENTATION RATE RBC NON-AUTOMATED Routine 03/11/2021 Polymyalgia (HCC) documented in this encounter Results * RBC SEDIMENTATION RATE, NON-AUTO (03/11/2021) 03/11/2021 Mariam Chapa MD LAB [employer] documented in this encounter Visit Diagnoses Diagnosis Polymyalgia (HCC) Polymyalgia rheumatica documented in this encounter Care Teams Financial Planner Relationship Specialty Start Date End Date Mariam Chapa, [address] [place] [address] PCP - General 07/21/06 documented as of this encounter
--- OUTSIDE RECORDS SUMMARY | 2024-08-02 13:21 | XMS_ITS | Encounter Summary ---
Author Organization [facility] Address [address] [place] [address] Care Team Providers Care Carpenter Streetcar Name Role Phone Mariam Chapa MD Primary Care Provider +1 -[phone] Encounter Details Date Type Department Care Team Description 12/16/2018 Driver License Agent Report Medical Records [address] [place] [address] Vincenzo Mc MD Social History Tobacco Use Types Packs/Day [...] on filedocumented in this encounter Care Teams Carpenter Streetcar Relationship Specialty Start Date End Date Mariam Chapa MD [address] [place] [address] PCP - General 07/21/06 documented as of this encounter
--- OUTSIDE RECORDS SUMMARY | 2024-08-02 13:21 | XMS_ITS | Encounter Summary ---
Author Organization [facility] Address [address] [place] [address] Care Team Providers Care Fountain Pen Nibs Inspector Name Role Phone Mariam Chapa MD Primary Care Provider +1 -[phone] Encounter Details Date Type Department Care Team Description 09/02/2013 Night Triage Doc Medical Records [address] [place] [address] Abstract, Provider Social History Tobacco Use Types [...] on filedocumented in this encounter Care Teams Fountain Pen Nibs Inspector Relationship Specialty Start Date End Date Mariam Chapa, [address] [place] [address] PCP - General 07/21/06 documented as of this encounter
--- OUTSIDE RECORDS SUMMARY | 2024-08-02 13:21 | XMS_ITS | Encounter Summary ---
Author Organization [facility] Address [address] [place] [address] Care Team Providers Care Carbon Sequestration Plant Operator Name Role Phone Mariam Chapa MD Primary Care Provider +1 -[phone] Encounter Details Date Type Department Care Team Description 03/15/2012 [place] Blind Machine Operator Report Medical Records [address] [place] [address] Social History Tobacco Use Types Packs/Day Years [...] on filedocumented in this encounter Care Teams Carbon Sequestration Plant Operator Relationship Specialty Start Date End Date Mariam Chapa MD [address] [place] [address] PCP - General 07/21/06 documented as of this encounter
--- OUTSIDE RECORDS SUMMARY | 2024-08-02 13:21 | XMS_ITS | Encounter Summary ---
Author Organization [facility] Address [address] [place] [address] Care Team Providers Care Overseer Kosher Kitchen Name Role Phone Mariam Chapa MD Primary Care Provider +1 -[phone] Reason for Visit * Reason Onset Date Comments Letter 06/28/2023 Encounter Details Date Type Department Care Team Description 06/28/2023 Telephone Adult Medicine - [place] [address] [place] [address] Mariam Chapa MD [address] [place] [address] Letter Social History Tobacco Use Types Packs/Day [...] encounter Miscellaneous Notes * Telephone Encounter - Camilla Nolan M.A. - 06/29/2023 9:45 AM EST Placed in patient brick picker, notified patient this was ready. * Telephone Encounter - Mariam Chapa MD - 06/28/2023 4:41 PM EST Thank you letter signed * Telephone Encounter - Camilla Nolan M.A. - 06/28/2023 4:03 PM EST Pended work note. Please sign if appropriate. Patient states she is still having fevers up to 101 and coughing. I advised her that I spoke to you and that you recommend continued rest and fluids. Sheverbalized understanding. I did ask that she call if symptoms worsen. * Telephone Encounter - Chun Overton - 06/28/2023 2:08 PM EST Letter requested for: Work Reason for letter: COVID Specific notations needed in body of letter: That pt is fine to return to work after having CT scan Date needed for completion: EDUIN When completed: Will brick picker-call when completed: documented in this encounter Plan of Treatment Not on file documented as of this encounter Visit Diagnoses Not on filedocumented in this encounter Care Teams Overseer Kosher Kitchen Relationship Specialty Start Date End Date Mariam Chapa MD [facility] [place] [address] PCP - General 07/21/06 documented as of this encounter
--- OUTSIDE RECORDS SUMMARY | 2024-08-02 13:21 | XMS_ITS | Encounter Summary ---
Author Organization [facility] Address [address] [place] [address] Care Team Providers Care Bolt Header Name Role Phone Mariam Chapa MD Primary Care Provider +1 [phone] Reason for Visit * Reason Onset Date Comments Call From Hospital 11/03/2018 Encounter Details Date Type Department Care Team Description 11/03/2018 Telephone Adult Medicine - [place] [address] [place] [address] Mariam Chapa MD [address] [place] [address] Call From Hospital Social History Tobacco Use Types Packs/Day [...] Telephone Encounter - Vilma Jasso M.A. - 11/04/2018 9:01 AM EDT Notes obtained and will be given to provider's nurse * Telephone Encounter - Maggi Richard L.P.N. - 11/03/2018 5:09 PM EDT Patient was seen at [facility] please obtain records. * Telephone Encounter - Allen Russel - 11/03/2018 4:57 PM EDT Hospital follow up appointment needed Hospital patient was treated at: [facility] Was this only an ER visit or was the patient admitted to the hospital? Admitted to hospital Date of visit if ER visit only: N/A If patient was admitted what was the date of discharge? 11/01/18-11/03/18 Reason/diagnosis for visit or stay: Back pain When was the patient told to follow up? Was visit or stay related to an injury? NO If yes, what was the date of injury (DOI)? N/A If yes, was the injury due to N/A documented in this encounter Plan of Treatment Not on file documented as of this encounter Visit Diagnoses Not on filedocumented in this encounter Care Teams Bolt Header Relationship Specialty Start Date End Date Mariam Chapa MD [facility] [place] [address] PCP - General 07/21/06 documented as of this encounter
--- OUTSIDE RECORDS SUMMARY | 2024-08-02 13:21 | XMS_ITS | Clinical Summary ---
Author Organization [facility] Address [address] [place] [address] Care Team Providers Care Wall Crane Operator Name Role Phone Mariam Chapa MD Primary Care Provider +1 [phone] Allergies Active Allergy Reactions Severity Noted Date Comments Bee Stings 03/01/2010 Cipro Hc Rash/Dermatitis 10/17/2009 Benztropine OTHER 02/02/2014 Double vision Prochlorperazine Maleate OTHER 10/22/2010 distonia Gluten 03/01/2010 Iv Contrast Dye 11/12/2022 Nitrofurantoin OTHER High 03/01/2010 Drug induced Hep Methenamine Mandelate OTHER High 03/01/2010 Drug induced hep Quinolones 08/12/2012 Periph neuropathy Shell Fish 03/01/2010 Shellfish-Derived Products 6 Sulfa Drugs 02/05/2006 Medications Medication Sig Dispensed Refills Start Date End Date Status Ibuprofen (MOTRIN OR) Take by mouth. 0 Active Zoledronic Acid (Reclast) 5 MG/100ML SolutionIndications:O steoporosis without current pathological fracture, unspecified osteoporosis type Inject 5 mg into the vein Once. 100 mL 0 08/28/2022 Active ondansetron (ZOFRAN-ODT) 4 MG disintegrating tablet Take 1 Tablet by mouth every 8 hours as needed for Nausea (prn). Take 1 Tablet by mouth every 8 hours as needed. 30 Tablet 0 05/05/2023 Active ALBUTEROL SULFATE 108 (90 Base) MCG/ACT Aero Soln Inhale 2 Puffs into the lungs every 4 hours as needed for Cough or Wheezing. 8.5 g 5 08/26/2023 Active ciclopirox (PENLAC) 8 % solution Apply 1 Each topically at bedtime for 90 days. 6.6 mL 2 11/23/2023 Active Misc. Devices (Free Spirit Knee/Leg Walker) MiscIndications:Arthr opathy of left knee,Inflammatory arthritis,Muscle weakness (generalized),Rheumat oid factor positive 1 Device by Does not apply route daily. 1 Each 0 01/28/2024 Active lorazepam (ATIVAN) 0.5 MG tablet Take 1 Tablet by mouth 2 times daily for 28 days. 56 Tablet 2 02/18/2024 Active HYDROmorphone (Dilaudid) 2 MG tablet 0 02/18/2024 Active pregabalin (Lyrica) 25 MG capsule Take 1 Capsule by mouth 2 times daily. 60 Capsule 11 02/18/2024 Active Active Problems Problem Noted Date Closed fracture of left tibial plateau 0 02/25/2024 Chronic pain of left knee 04/23/2023 Osteopenia of left thigh 09/07/2022 Complex regional pain syndrome type 1 of left lower extremity 08/25/2022 COVID-19 telma arellano manifesting chronic muscle pain 07/13/2022 History of 2019 novel coronavirus diseas e (COVID-19) 05/28/2022 Post viral syndrome 05/28/2022 COVID-19 virus infection 04/17/2022 Overview: 03/2022 Diverticulitis 09/10/2018 Asthma 03/31/2018 Overview: Diagnosed in 2002 per pt Sensorineural hearing loss (SNHL) of bot h ears 03/31/2018 Overview: Wears hearing aids Diverticulosis 09/29/2013 Abnormal chest x-ray 01/06/2013 Adhesive capsulitis of shoulder 01/05/20 12 Muscle weakness (generalized) 01/05/2012 Celiac sprue Anxiety Weight loss Immunizations Name Administration Dates Next Due COVID-19 ([employer]) 03/27/2021 Influenza Vaccine-quadrivalent 4 Years Plus 03/31 Opimzvy-Fnirg-Veyblrxn + 02/18/2017 Hsrzr-Lfcwg-Ljgbpfha + 02/18/2017 PPD-RBMG 03/17/2017,02/18/2010 Jguaxjd-Wgtvp-Otwpovat + 02/18/2017 Varicella Titre-Positive + 02/18/2017 Family History Medical History Relation Name Comments Diabetes Maternal Grandfather CAD Diabetes Maternal Grandmother cholest keena, stroke Cancer, Other Mother cervical and u terine Thyroid Disorder Mother Stroke Paternal Grandfather Uterine Cancer Paternal Grandmother diabe renetta, cholesterol stroke Relation [...] file Not on file Not on file Last Filed Vital Signs Vital Sign Reading Time Taken Comments Blood Pressure 107/70 11/23/2023 4:09 PM EDT Pulse 82 11/23/2023 4:09 PM EDT Temperature 37.1 ??C (98.7 ??F) 11/23/2023 4:09 PM ED T Respiratory Rate 16 04/21/2023 3:28 PM EST Oxygen Saturation 100% 01/03/2019 10:52 AM EDT Inhaled Oxygen Concentration - - Weight 47.6 kg (105 lb) 11/23/2023 4:09 PM EDT Height 154.9 cm (5' 1 ) 07/21/2023 2:01 PM EST Body Mass Index 19.84 07/21/2023 2:01 PM EST Plan of Treatment Health Maintenance Due Date Last Done Comments PNEUMOCOCCAL VACCINE FOR HIG H RISK PATIENTS (#1) 12/29/1978 SHINGLES VACCINE (1 of 2) 12/29/2009 CERVICAL CANCER SCREENING 12/29/20202017 (External Completion of test per patient (Patient reports normal results)), 10/27/2013, 12/09/2009 (External Completion), Additional history exists Covid-19 Vaccine (2022-2 4 season) 2024 03/27/2021 INFLUENZA (#1) 2024 04/14/2021, 03/02 (External Completion of Vaccination per patient) CHOLESTEROL SCREENING 04/03/2024 04/03/2019 , 10/25/2018, 08/04/2012, Additional history exists COLON CANCER SCREENING 10/26/2024 10/26/2014 MAMMOGRAM 2024 12/31/2023, 07/2023, 12/29/2017 (External Completion of test per patient (Patient reports normal results)), Additional history exists DTAP/TDAP/TD (2 - Td or Tdap) 03/31/2028 03/31/2018 (Refused) HEPATITIS C SCREENING Completed 04/03/2019 , 09/29/2013, 02/03/2011, Additional history exists Care Teams Wall Crane Operator Relationship Specialty Start Date End Date Mariam Chapa MD [address] [place] [address] PCP - General 07/21/06
--- OUTSIDE RECORDS SUMMARY | 2024-08-02 13:21 | XMS_ITS | Encounter Summary ---
Author Organization [facility] Address [address] [place] [address] Care Team Providers Care Rn Charge Name Role Phone Mariam Chapa MD Primary Care Provider +1 [phone] Reason for Visit * Reason Onset Date Comments Information Needed 03/14/2021 Encounter Details Date Type Department Care Team Description 03/14/2021 Telephone Adult Medicine - [address] [address] Felicia Alonzo NP Information Needed Social History Tobacco Use Types Packs/Day Years [...] Telephone Encounter - Alanna Lai M.A. - 03/17/2021 1:53 PM EDT Left vocemail regarding message below. * Telephone Encounter - Felicia Alonzo NP - 03/17/2021 12:47 PM EDT Drop off form * Telephone Encounter - Raman Harley LPN - 03/14/2021 12:34 PM EDT Should pt drop off this form , no e-mail? * Telephone Encounter - Vilma Hector - 03/14/2021 12:25 PM EDT Pt looking for Felicia email for a form she needs to have filled out - or should she drop off the form- she would need this form done today - please advise documented in this encounter Plan of Treatment Not on file documented as of this encounter Visit Diagnoses Not on filedocumented in this encounter Care Teams Rn Charge Relationship Specialty Start Date End Date Mariam Chapa MD [facility] [place] [address] PCP - General 07/21/06 documented as of this encounter
--- OUTSIDE RECORDS SUMMARY | 2024-08-02 13:21 | XMS_ITS | Encounter Summary ---
Author Organization [facility] Address [address] [place] [address] Care Team Providers Care Missileman Name Role Phone Mariam Chapa MD Primary Care Provider +1 -[phone] Encounter Details Date Type Department Care Team Description 01/13/2010 Night Triage Doc Medical Records [address] [place] [address] Abstract, Provider Social History Tobacco Use Types [...] on filedocumented in this encounter Care Teams Missileman Relationship Specialty Start Date End Date Mariam Chapa, [address] [place] [address] PCP - General 07/21/06 documented as of this encounter
--- OUTSIDE RECORDS SUMMARY | 2024-08-02 13:21 | XMS_ITS | Encounter Summary ---
Author Organization [facility] Address [address] [place] [address] Care Team Providers Care Riverboat Captain Name Role Phone Mariam Chapa MD Primary Care Provider +1 -[phone] Reason for Visit * Reason Onset Date Comments Provider Call Back 06/19/2013 Encounter Details Date Type Department Care Team Description 06/19/2013 Telephone Adult Medicine - [place] [address] [place] [address] Mariam Chapa MD [address] [place] [address] Provider Call Back Social History Tobacco Use [...] Telephone Encounter - Mariam Chapa MD - 06/19/2013 5:34 PM EST No answer * Telephone Encounter - Sheila Negrete - 06/19/2013 2:36 PM EST Pt would like to speak to Dr. Vaughn about some issues she is having. documented in this encounter Plan of Treatment Not on file documented as of this encounter Visit Diagnoses Not on filedocumented in this encounter Care Teams Riverboat Captain Relationship Specialty Start Date End Date Mariam Chapa MD [facility] [place] [address] PCP - General 07/21/06 documented as of this encounter
--- OUTSIDE RECORDS SUMMARY | 2024-08-02 13:21 | XMS_ITS | Encounter Summary ---
Author Organization [facility] Address [address] [place] [address] Care Team Providers Care Ophthalmologist Retina Specialist Name Role Phone Mariam Chapa MD Primary Care Provider +1 -[phone] Encounter Details Date Type Department Care Team Description 07/16/2011 First Calender Worker Report Medical Records [address] [place] [address] Vinnie Sprague Social History Tobacco Use Types [...] on filedocumented in this encounter Care Teams Ophthalmologist Retina Specialist Relationship Specialty Start Date End Date Mariam Chapa, [address] [place] [address] PCP - General 07/21/06 documented as of this encounter
--- OUTSIDE RECORDS SUMMARY | 2024-08-02 13:21 | XMS_ITS | Encounter Summary ---
Author Organization [facility] Address [address] [place] [address] Care Team Providers Care Assistant Boiler Operator Name Role Phone Mariam Chapa MD Primary Care Provider +1 -[phone] Encounter Details Date Type Department Care Team Description 10/28/2013 Water Plumber Report Medical Records [address] [place] [address] Social History Tobacco Use Types Packs/Day Years [...] on filedocumented in this encounter Care Teams Assistant Boiler Operator Relationship Specialty Start Date End Date Mariam Chapa MD [address] [place] [address] PCP - General 07/21/06 documented as of this encounter
--- OUTSIDE RECORDS SUMMARY | 2024-08-02 13:21 | XMS_ITS | Encounter Summary ---
Author Organization [facility] Address [address] [place] [address] Care Team Providers Care Sorority Mother Name Role Phone Mariam Chapa MD Primary Care Provider +1 -[phone] Reason for Visit * Reason Onset Date Comments Faxed Order 02/21/2024 Faxed Order-[id number] Encounter Details Date Type Department Care Team Description 02/21/2024 Telephone Adult Medicine - [place] [address] [place] [address] Mariam Chapa MD [address] [place] [address] Faxed Order (Faxed Order-[id number]) Social History Tobacco Use Types Packs/Day Years [...] Telephone Encounter - Camilla Nolan M.A. - 02/22/2024 11:38 AM EDT Faxed, confirmed and filed. * Telephone Encounter - Carolina Shay - 02/21/2024 3:14 PM EDT . PLEASE CLOSE ( SIGN ENCOUNTER) MESSAGE WHEN ORDER HAS BEEN FAXED Faxed order [id number] received from [facility], requesting signature from provider. Please sign and fax back to [phone]. Faxed order in PCP's folder ( orange) at check out. documented in this encounter Plan of Treatment Not on file documented as of this encounter Visit Diagnoses Not on filedocumented in this encounter Care Teams Sorority Mother Relationship Specialty Start Date End Date Mariam hCapa MD [address] [place] [address] PCP - General 07/21/06 documented as of this encounter
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
--- OUTSIDE RECORDS SUMMARY | 2024-08-02 13:21 | XMS_ITS | Encounter Summary ---
Author Organization [facility] Address [address] [place] [address] Care Team Providers Care Flotation Operator Name Role Phone Mariam Chapa MD Primary Care Provider +1 -[phone] Encounter Details Date Type Department Care Team Description 09/14/2013 Reports Analysis Manager Report Medical Records [address] [place] [address] Wale Nguyen MD Social History Tobacco Use Types Packs/Day [...] on filedocumented in this encounter Care Teams Flotation Operator Relationship Specialty Start Date End Date Mariam Chapa MD [address] [place] [address] PCP - General 07/21/06 documented as of this encounter
--- OUTSIDE RECORDS SUMMARY | 2024-08-02 13:21 | XMS_ITS | Encounter Summary ---
Author Organization [facility] Address [address] [place] [address] Care Team Providers Care Hotel Service Supervisor Name Role Phone Mariam David MD Primary Care Provider +1 -[phone] Reason for Visit * Reason Onset Date Comments Letter 10/16/2021 Encounter Details Date Type Department Care Team Description 10/16/2021 Telephone Adult Medicine - [place] [address] [place] [address] Mariam David, [address] [place] [address] Letter Social History Tobacco Use Types Packs/Day [...] encounter Miscellaneous Notes * Telephone Encounter - Yoana Chisholm M.A. - 10/24/2021 1:32 PM EDT Spoke to pt and pt gave me her badge # and I completed and sent out letter. * Telephone Encounter - Yoana Chisholm M.A. - 10/22/2021 10:29 AM EDT I spoke to pt about badge number unfortunately she was at work I will follow up with her first thing tomorrow morning she said she will make sure to have the badge number with her so we can complete the letter. * Telephone Encounter - Jacob Harding - 10/17/2021 1:03 PM EDT Still waiting for pt to call with badge number before the letter is written * Telephone Encounter - Jacob Harding - 10/16/2021 4:27 PM EDT Called patient to get badge number for Jury duty letter patient didn't have it she will call back when she has it * Telephone Encounter - Yareli Morillo - 10/16/2021 3:30 PM EDT Letter requested for: excuse from jury duty Reason for letter: pt sts she is unable to serve jury duty and is requesting a letter stating this.Bsr suggested making an appt, but pt stated she only wanted to see dr. David, and those appt. Were booking too far out. Specific notations needed in body of letter: Pt is unable to serve in jury duty due to a knee injury. Date needed for completion: pt did not disclose this infirmation, When completed: Will pickling solution maker-call when completed: documented in this encounter Plan of Treatment Not on file documented as of this encounter Visit Diagnoses Not on filedocumented in this encounter Care Teams Hotel Service Supervisor Relationship Specialty Start Date End Date Mariam David MD [address] [place] [address] PCP - General 07/21/06 documented as of this encounter
--- OUTSIDE RECORDS SUMMARY | 2024-08-02 13:21 | XMS_ITS | Encounter Summary ---
Author Organization [facility] Address [address] [place] [address] Care Team Providers Care Sociology Teacher Name Role Phone Mariam Chapa MD Primary Care Provider +1 -[phone] Encounter Details Date Type Department Care Team Description 07/14/2023 Orders Only Medical Records [address] [place] [address] [facility] Social History Tobacco Use Types Packs/Day [...] Associated Diagnosis Comments OUTSIDE PLAIN FILM Routine 06/25/2023 documented in this encounter Results * OUTSIDE PLAIN FILM (06/25/2023) [facility] RADIOLOGY documented in this encounter Visit Diagnoses Not on filedocumented in this encounter Care Teams Sociology Teacher Relationship Specialty Start Date End Date Mariam Chapa, [address] [place] [address] PCP - General 07/21/06 documented as of this encounter
--- OUTSIDE RECORDS SUMMARY | 2024-08-02 13:21 | XMS_ITS | Encounter Summary ---
Author Organization [facility] Address [address] [place] [address] Care Team Providers Care Rabbit Breeder Name Role Phone Mariam Chapa MD Primary Care Provider [phone] [phone] Reason for Visit * Reason Onset Date Comments TEST RESULTS 06/06/2019 Encounter Details Date Type Department Care Team Description 06/06/2019 Telephone Adult Medicine - [place] [address] [place] [address] Mariam Chapa MD [address] [place] [address] TEST RESULTS Social History Tobacco Use Types Packs/Day Years [...] Telephone Encounter - Vilma Jasso M.A. - 06/16/2019 10:00 AM EST Pt called back and was informed of results. * Telephone Encounter - Cristy Tiwari - 06/16/2019 9:56 AM EST Pt returning call * Telephone Encounter - Vilma Jasso M.A. - 06/16/2019 9:38 AM EST Called pt and left message to return call, 2nd attempt. * Telephone Encounter - Moni Johnson M.A. - 06/06/2019 4:36 PM EST Left message on identified voicemail for pt to return call. * Telephone Encounter - Melody Waddell - 06/06/2019 10:40 AM EST Inform patient: ANY URGENT OR ABNORMAL RESULTS WIILL RESULT IN A CALL BACK TO THE PATIENT EDUIN. Type of test: :labs - CBC Date test was performed: 05/19/19 Where was the test performed: [facility] Who ordered this test?: Evonne Arredondo Is the doctor here today?: YES Can the message wait until the doctor returns?: YES IF PATIENT'S PCP IS NOT IN INSTRUCT PATIENT THAT THEY WILL RECEIVE A CALL BACK WHEN THE PCP IS IN THE OFFICE NEXT. documented in this encounter Plan of Treatment Not on file documented as of this encounter Visit Diagnoses Not on filedocumented in this encounter Care Teams Rabbit Breeder Relationship Specialty Start Date End Date Mariam Chapa MD [facility] [place] [address] PCP - General 07/21/06 documented as of this encounter
--- OUTSIDE RECORDS SUMMARY | 2024-08-02 13:21 | XMS_ITS | Encounter Summary ---
Author Organization [facility] Address [address] [place] [address] Care Team Providers Care Electrophysiology Nurse Practitioner Name Role Phone Mariam Chapa MD Primary Care Provider [phone] [phone] Encounter Details Date Type Department Care Team Description 06/03/2021 [place] Inspector Repairer Report Medical Records [address] [place] [address] Bubba Ramirez PA-C Social History Tobacco Use Types Packs/Day Years [...] on filedocumented in this encounter Care Teams Electrophysiology Nurse Practitioner Relationship Specialty Start Date End Date Mariam Chapa MD [address] [place] [address] PCP - General 07/21/06 documented as of this encounter
--- OUTSIDE RECORDS SUMMARY | 2024-08-02 13:21 | XMS_ITS | Encounter Summary ---
[facility] Organization [facility] Address [address] [place] [address] Care Team Providers Care Cushion Builder Name Role Phone Mariam Chapa MD Primary Care Provider [phone] [phone] Encounter Details Date Type Department Care Team Description 11/04/2013 Abstract Medical Records [address] [place] [address] Abstract, Provider Social History Tobacco Use Types [...] on filedocumented in this encounter Care Teams Cushion Builder Relationship Specialty Start Date End Date Mairam Chapa MD [address] [place] [address] PCP - General 07/21/06 documented as of this encounter
--- OUTSIDE RECORDS SUMMARY | 2024-08-02 13:21 | XMS_ITS | Encounter Summary ---
Author Organization [facility] Address [address] [place] [address] Care Team Providers Care Search Marketing Analyst Name Role Phone Mariam Chapa MD Primary Care Provider [phone] [phone] Encounter Details Date Type Department Care Team Description 05/28/2011 Business Administrator Report Medical Records [address] [place] [address] Vinnie Sprague Social History Tobacco Use Types [...] on filedocumented in this encounter Care Teams Search Marketing Analyst Relationship Specialty Start Date End Date Mariam Chapa, [address] [place] [address] PCP - General 07/21/06 documented as of this encounter
--- OUTSIDE RECORDS SUMMARY | 2024-08-02 13:21 | XMS_ITS | Encounter Summary ---
Author Organization [facility] Address [address] [place] [address] Care Team Providers Care Environmental Analyst Name Role Phone Mariam Chapa MD Primary Care Provider [phone] [phone] Encounter Details Date Type Department Care Team Description 02/12/2024 Home Health Certification Medical Records [address] [place] [address] [facility] [address] [place] [address] Social History Tobacco Use Types Packs/Day Years [...] on filedocumented in this encounter Care Teams Environmental Analyst Relationship Specialty Start Date End Date Mariam Chapa MD [address] [place] [address] PCP - General 07/21/06 documented as of this encounter
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
--- OUTSIDE RECORDS SUMMARY | 2024-08-02 13:21 | XMS_ITS | Encounter Summary ---
[facility] Organization [facility] Address [address] [place] [address] Care Team Providers Care Compounding And Finishing Supervisor Name Role Phone Mariam Chapa MD Primary Care Provider [phone] [phone] Encounter Details Date Type Department Care Team Description 01/28/2012 E Business Project Manager Report Medical Records [address] [place] [address] Daniel Rincon Social History Tobacco Use Types [...] on filedocumented in this encounter Care Teams Compounding And Finishing Supervisor Relationship Specialty Start Date End Date Mariam Chapa, [address] [place] [address] PCP - General 07/21/06 documented as of this encounter
--- OUTSIDE RECORDS SUMMARY | 2024-08-02 13:21 | XMS_ITS | Encounter Summary ---
Author Organization [facility] Address [address] [place] [address] Care Team Providers Care Silversmith Apprentice Name Role Phone Mariam Chapa MD Primary Care Provider [phone] [phone] Encounter Details Date Type Department Care Team Description 07/30/2011 Night Triage Doc Medical Records [address] [place] [address] Abstract, Provider Social History Tobacco Use Types [...] on filedocumented in this encounter Care Teams Silversmith Apprentice Relationship Specialty Start Date End Date Mariam Chapa, [address] [place] [address] PCP - General 07/21/06 documented as of this encounter
--- OUTSIDE RECORDS SUMMARY | 2024-08-02 13:22 | XMS_ITS | Encounter Summary ---
Author Organization [facility] Address [address] [place] [address] Care Team Providers Care Curtain Hemmer Automatic Name Role Phone Mariam Chapa MD Primary Care Provider [phone] Encounter Details Date Type Department Care Team Description 07/17/2013 Financial Accounting Manager Report Medical Records [address] [place] [address] Social History Tobacco Use Types Packs/Day Years [...] on filedocumented in this encounter Care Teams Curtain Hemmer Automatic Relationship Specialty Start Date End Date Mariam Chapa MD [address] [place] [address] PCP - General 07/21/06 documented as of this encounter
--- OUTSIDE RECORDS SUMMARY | 2024-08-02 13:22 | XMS_ITS | Encounter Summary ---
Author Organization [facility] Address [address] [place] [address] Care Team Providers Care Collar Trimmer Name Role Phone Mariam Chapa MD Primary Care Provider [phone] Encounter Details Date Type Department Care Team Description 01/05/2012 Home Health Certification Medical Records [address] [place] [address] Abstract, Provider Social History Tobacco Use Types [...] on filedocumented in this encounter Care Teams Collar Trimmer Relationship Specialty Start Date End Date Mariam Chapa, [address] [place] [address] PCP - General 07/21/06 documented as of this encounter
--- OUTSIDE RECORDS SUMMARY | 2024-08-02 13:22 | XMS_ITS | Encounter Summary ---
Author Organization [facility] Address [address] [place] [address] Care Team Providers Care Sas Administrator Name Role Phone Mariam Chapa MD Primary Care Provider [phone] [phone] Encounter Details Date Type Department Care Team Description 01/27/2018 Hospital Medical Records [address] [place] [address] Wendy Dasilva MD [address] [facility] [address] [place] [address] Social History Tobacco Use Types Packs/Day Years [...] on filedocumented in this encounter Care Teams Sas Administrator Relationship Specialty Start Date End Date Mariam Chapa MD [address] [place] [address] PCP - General 07/21/06 documented as of this encounter
--- OUTSIDE RECORDS SUMMARY | 2024-08-02 13:22 | XMS_ITS | Encounter Summary ---
Author Organization [facility] Address [address] [place] [address] Care Team Providers Care Senior Grants Officer Name Role Phone Mariam Chapa MD Primary Care Provider [phone] [phone] Reason for Visit * Reason Onset Date Comments Orders Call 03/25/2018 Encounter Details Date Type Department Care Team Description 03/25/2018 Telephone Adult Medicine - [facility] [address] [place] [address] Mariam Chapa MD [address] [place] [address] Orders Call Social History Tobacco Use Types [...] encounter Miscellaneous Notes * Telephone Encounter - Josefina Guerrero M.A. - 03/25/2018 4:44 PM EDT Message left for patient to call office back. Letter in PPU with titers report. No imms needed upon visit. * Telephone Encounter - Mariam Chapa MD - 03/25/2018 12:27 PM EDT Thanks orders signed * Telephone Encounter - Josefina Guerrero M.A. - 03/25/2018 11:15 AM EDT Requested titers report from lab, pt was positive to titers in 01/2017 except for hep b. Pended hep b and ppd. * Telephone Encounter - Maria Luisa Alvarez - 03/25/2018 8:57 AM EDT Patient calling to request labs be ordered: What lab work is patient requesting? 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 Pt states sheneeds titers for mmr and chicken pox,heb B and TB test (ppd) . Pt has a physical 03/31/18 and would like to get as much done on her physical. Does patient have an upcoming appointment, if yes when and WITH WHO? yes 03/31/18 Patients PCP is: Millicent Chapa documented in this encounter Plan of Treatment Scheduled Orders Name Type Priority Associated Diagnoses Orde r Schedule TB INTRADERMAL TEST Lab Routine Screening examination for pulmonary tuberculosis 1 Occurrences starting 03/25/2018 until 09/21/2018 documented as of this encounter Results * HEPATITIS B SURFACE AB TEST (03/31/2018 4:26 PM EDT) Hepatitis B surface antibody NEGATIVE 04/01/2018 10:23 AM EDT [facility] Comment:Individual is consid ered NOT to be immune to HBV. 03/31/2018 4:26 PM EDT 03/31/2018 4:26 PM EDT Mariam Chapa MD LAB [address] documented in this encounter Visit Diagnoses Diagnosis Screening examination for pulmonary tuberculosis- Primary Antibody response examination Screening for endocrine, nutritional, metabolic and immunity disorder Screening for other and unspecified endocrine, nutritional, metabolic, and immunity disorders documented in this encounter Care Teams Senior Grants Officer Relationship Specialty Start Date End Date Mariam Chapa, [address] [place] [address] PCP - General 07/21/06 documented as of this encounter
--- OUTSIDE RECORDS SUMMARY | 2024-08-02 13:22 | XMS_ITS | Encounter Summary ---
Author Organization [facility] Address [address] [place] [address] Care Team Providers Care Product Applications Engineer Name Role Phone Millicent Chapa MD Primary Care Prov ider Reason for Visit * Reason Onset Date Comments A call back 07/14/2024 Regarding treatm ent for pain Medication Problem 07/14/2024 Encounter Details Date Type Department Care Team (Late st Contact Info) Description 07/14/2024 Telephone Adult Medicine [facility] [address] [place] [id number] Millicent Chapa MD [address] [place] [address] A call back (Regarding treatment for pain); Medication Problem Social History Tobacco Use Types Packs/Day Years [...] on file documented as of this encounter Ordered Prescriptions Prescription Sig Dispense Quantity Refills Last Filled Start Date End Date HYDROmorphone (Dilaudid) 2 mg tablet Take 1 tablet (2 mg total) by mouth every 4 (four) hours if needed for severe pain for up to 5 days. Max Daily Amount: 12 mg 20 tablet 07/14/2024 07/18/2024 documented in this encounter Progress Notes * Millicent Crandall MA - 07/20/2024 9:22 AM EST Noted. * Millicent Chapa MD - 07/18/2024 3:25 PM EST Called patient after lengthy discussion it appears that she was taking high doses of NSAIDs which caused significant edema and may have compression to the point where she could not walk she has sincecut down on the NSAIDs trying Lyrica although she has been intolerant of it in the past she is given a short prescription for Dilaudid patient will hold off taking the methotrexate for now we will call patient back in a week * Josefina Guerrero MA - 07/18/2024 12:06 PM EST Spoke to patient in regards to letter being placed in ppu, and she is inquiring about script being sent to [facility] pharmacy. Patient states she is waiting for Dr. Yan Eden to call her as well. * Leonard Celestin - 07/17/2024 8:32 AM EST Pt calling back states pharmacy does not have it and would like it sent to [facility] * TENISHA Soliz - 07/14/2024 7:11 PM EST [phone] (home) [phone] (work) Called and left detailed message. Small number of Dilaudid to get through the weekend. The plan had been to get information from her previous providers and formulate a more detailed plan Dr. Eden aware and states she will talk to patient on Wednesday * Arnold Ramsey - 07/14/2024 12:42 PM EST Patient called stating she has been up since 2 AM this morning and asking for a call back Today regarding a plan of what to do next regarding her pain. Please call Patient is upset that she was not given a plan or any possible treatment for her pain at the last visit and that she was not called yet since her appt. Patient was not ok that other provider was shadowing at her last visit and she wasn't asked if she is ok with that or not. Pt was seen on 07/11/2024 documented in this encounter Plan of Treatment Upcoming Encounters Date Type Department Care Team (Late st Contact Info) Description 08/17/2024 9:30 AM EDT Office Visit Adult Medicine [facility] [address] [place] [address] Fredrick Munoz PA [address] [place] [address] 09/27/2024 8:30 AM EDT Office Visit Adult [facility] [address] [place] [address] Millicent Chapa MD [address] [place] [address] documented as of this encounter Visit Diagnoses Not on filedocumented in this encounter Care Teams Product Applications Engineer Relationship Specialty Start Date End Date Millicent Chapa MD [address] [place] [address] PCP - General 07/21/06 documented as of this encounter
--- OUTSIDE RECORDS SUMMARY | 2024-08-02 13:22 | XMS_ITS ---
Author Organization Ernie Chen MD Address [address] [place], [place] [address] Care Team Providers Care Forensic Specialist Name Role Phone Ernie Chen Primary Care Provider [phone] Allergies Allergen (clinical drug ingredient) Drug/Non Drug Allergy documented on EMR Reaction Allergy Type Onset Date Status Substance with sulfonamide structure and antibacterial mechanism of action (substance) Sulfa Antibiotics rash Drug Allergy Active ciprofloxacin Cipro Unknown Drug Allergy Act vaishali REASON FOR VISIT new patient est care / okayed by provider/patientis working getting her records Medications Medication SIG (Take, Route, Frequency, Duration) [...] Problem Status W/U Status Risk Notes Problem [id number] Generalized arthritis (M19.90) Active confirmed Problem [id number] Other chronic pain (G89.29) Active confirmed Vital Signs Blood pressure systolic 104 mm Hg 07/14/19 25 Blood pressure diastolic 58 mm Hg 025 Height 61 in 07/14/2024 Weight 100 lbs 07/14/2024 BMI 18.89 kg/m2 07/14/2024 Encounters Encounter Location Date Provider Diagnosis Ernie Chen MD [address] [place] [address] Drive [address] [place], [place] [id number] 07/14/2024 Ernie Chen Generalized arthritis M19.90 ; [...] to try lyrica again Plan Of Treatment Treatment Notes Assessment Notes Generalized arthritis very difficult his tory. has been seeing multiple consults for these problems and is unclear to me what is causing them. her history was very difficult to follow but it seems that she is seeing the approprate consultants. she has multiple quesitons about the meds and i have recommended that she speak with the specialist that has prescribed them Bilateral swelling of feet is cutting do wn on nsaids due to swelling if feet Pain in right ankle and join ts of right foot examination of these joints is normal. will obtain the labs and consults from the specialist. she says that she just wants a primary to receive all the informalton from the specialists Pain in left ankle and joints of left fo ot to try lyrica again Next Appt Details Follow Up: 4 Weeks, Reason: Provider Name:Ernie lozano, 08/11/2024 10:45:00 AM, [address], [address], [place], [id number], Progress Notes * Ruby CASANOVA ADOB: [birth year] (63 yo F)Acc No.[id number]:07/14/2024 Progress Notes Patient:?Ruby CASANOVA A Provider:?Ernie Chen MD :1960???Age:63 Y???Sex:Female D ate:07/14/2024 Address:[address] [place] [address], Latasha hernandez [id number] Subjective: * Chief Complaints: * ???New patient est care / ok ayed by provider/patientis working getting her records * HPI: ???Depression Screening:?PHQ-9?Little interest or pleasure in doing things?Several days,?Feeling down, depressed, or hopeless?Several days,?Trouble falling or staying asleep, or sleeping too much?Not at all,?Feeling tired or having little energy?Several days,?Poor appetite or overeating?Not at all,?Feeling bad about yourself or that you are a failure, or have let yourself or your family down?Not at all,?Trouble concentrating on things, such as reading the newspaper or watching television?Not at all,?Moving or speaking so slowly that other people could have noticed; or the opposite, being so fidgety or restless that you have been moving around a lot more than usual?Not at all,?Thoughts that you would be better off or of hurting yourself in some way?Not at all,?Total Score?3,?Interpretation?Minimal Depression.?Interpretation and Intervention?Depression Screening Findings?Negative,?Follow-Up for Depression?: review of PHQ-9 found negative result, no follow-up needed.?Communication Needs:?Communication Needs?Does the patient have a hearing impairment?Yes,?If yes, what is the hearing impairment??Hard of hearing, Hearing Aids,?Does the patient have a vision impairment??Yes,?If yes, what is the vision impairment??Glasses,?Does the patient have a cognition impairment??No.?Fall Risk:?History?Have you had any falls with injury in the past year??Yes tripped on a bed sheet at home fractured left tibia plateau,?Have you had two or more falls in the past year??No.?SDOH Questions:?SDOH Questions?In the past year have you been worried about losing housing??No,?In the past year have you or any family members you live with been unable to get any of the following when it was really needed? Check all that apply:?None.?Symptom(s):? patient is a 63 yo female has fracture of tibia plateaeau . ankles swelling and pain in all the muscles in both legs. seeing dr june here for knee. non weight bearing for 4 months.? has intermittant tingling and numbness from knee to toes. was getting better with the physiical therapy. woke up with swelling in ankles 4 or 5 weeks ago. feeling mildly short of breath? with walking. dyspnea went away. no chest pain. had an abnormal ecg but cath was normal. after covid developed lbbb. * ROS:?General/Constitutional:?Patient denies?chills, fatigue, headache, , fever.?ENT:?Patient denies?decreased sense of smell, any loss of taste, sore throat.?Musculoskeletal:?Patient denies?muscle aches.?Comments?has been seen [facility]. does have sun sensitivity. 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 has been taking nsaids and tylenol. apparently methotrexate and nsaids interact. sed rate is normal and RF is occasionally elevated. has a history of urinary bleeding and had cysto which was negative. had been on prednisone and got all better.?.?Peripheral Vascular:?Patient denies?red and blue toes.? * Medical History:? * Surgical History:? * Hospitalization/Major Diagno stic Procedure:? * Social History:?Tobacco Use:?Tobacco Control (Standard)?Tobacco use:?Nonsmoker.?Miscellaneous:?Caffeine: yes, frequency:, 1-2 cups per day. Children: yes. Exercise: yes, spinning yoga. Marital status: . Travel outside of the [place]: no. ???Drug/Alcohol:?AUDIT-C (Standard)?Did you have a drink containing alcohol in the past year??No,?Points?0,?Interpretation?Negative.? * Medications:?TakingIbuprofen 600 MG Tablet 1 tablet with food or milk as needed Orally twice a day Albuterol Sulfate HFA 108 (90 Base) MCG/ACT Aerosol Solution 1 puff as needed Inhalation every 4 hrs Ativan 0.5 MG Tablet 1 tablet at bedtime as needed Orally twice a day Tylenol 325 MG Tablet 1 tablet as needed Orally every 6 hrs Medication List reviewed and reconciled with the patientTaking Ibuprofen 600 MG Tablet 1 tablet with food or milk as needed Orally twice a day Taking Albuterol Sulfate HFA 108 (90 Base) MCG/ACT Aerosol Solution 1 puff as needed Inhalation every 4 hrs Taking Ativan 0.5 MG Tablet 1 tablet at bedtime as needed Orally twice a day Taking Tylenol 325 MG Tablet 1 tablet as needed Orally every 6 hrs Medication List reviewed and reconciled with the patient * Allergies:?Sulfa Antibiotics : rashCipro Objective: * Vitals:?Ht: 61, Wt: 100, BMI :18.89, BP:104/58, Ht-cm: 154.94, Wt-k.36. * Examination: ???General Examination: ?GENERAL APPEARANCE:?well developed, well nourished.?HEAD:?normocephalic.?SKIN:?good turgor.?HEART:?regular rate and rhythm, no murmurs, rubs, gallops.?LUNGS:?no wheezes, rales, rhonchi, good air movement, clear to auscultation bilaterally.?EXTREMITIES:?no edema calfs are soft and non tender.? Assessment: * Assessment: 1.?Generalized arthritis - M 19.90 (Primary)???2.?Bilateral swelling of feet - M79.89???3.?Other chronic pain - G89.29???4.?Pain in right ankle and joints of right foot - M25.571???5.?Pain in left ankle and joints of left foot - M25.572??? Plan: * Treatment: 2.?Bilateral swelling of fee t? Notes: is cutting down on nsaids due to swelling if feet?? 3.?Pain in right ankle and j oints of right foot? Notes: examination of these joints is normal. will obtain the labs and consults from the specialist. she says that she just wants a primary to receive all the informalton from the specialists?? 4.?Pain in left ankle and nyasia ints of left foot? Notes: to try lyrica again?? * Procedure Codes:? * Follow Up:?4 Weeks * * Sign off status: Completed true * Provider:?Ernie Chen MD Date:?0 07/14/2024 Generated for Yonatan ren/Aurelio/eTransmitting on:?08/02/2024 01:21 PM EST History and Physical Notes * HPI (History of Present Illness) Category Sub-Category Detail Notes Category Not es Symptom(s) patient is a 63 yo female has fracture of tibia plateaeau . ankles swelling and pain in all the muscles in both legs. seeing dr june here for knee. non weight bearing for 4 months. has intermittant tingling and numbness from knee to toes. was getting better with the physiical therapy. woke up with swelling in ankles 4 or 5 weeks ago. feeling mildly short of breath with walking. dyspnea went away. no chest pain. had an abnormal ecg but cath was normal. after covid developed lbbb Depression Screening PHQ-9 Little interest or pleasure in doing things: Several days Feeling down, depressed, or hopeless: Se veral days Trouble falling or staying asleep, or sl eeping too much: Not at all Feeling tired or having little energy: S everal days Poor appetite or overeating: Not at all Feeling bad about yourself o r that you are a failure, or have let yourself or your family down: Not at all Trouble concentrating on thi ngs, such as reading the newspaper or watching television: Not at all Moving or speaking so slowly that other people could have noticed; or the opposite, being so fidgety or restless that you have been moving around a lot more than usual: Not at all Thoughts that you would be b reyes off or of hurting yourself in some way: Not at all Total Score: 3 Interpretation: Minimal Depression Interpretation and Intervention Depression Susana johnston Findings: Negative Follow-Up for Depression: : review of PH Q-9 found negative result, no follow-up needed SDOH Questions SDOH Questions In the past year have you been worried about losing housing?: No In the past year have you or any family members you live with been unable to get any of the following when it was really needed? Check all that apply:: None Fall Risk History Have you had any falls with injury in the past year?: Yes tripped on a bed sheet at home fractured left tibia plateau Have you had two or more falls in the ?: No Communication Needs Communication Needs Does the patient have a hearing impairment: Yes ?If yes, what is the hearing impairment? : Hard of hearing, Hearing Aids Does the patient have a vision impairmen t?: Yes ?If yes, what is the vision impairment?: Glasses Does the patient have a cognition impair ment?: No Examination Category Sub-Category Detail Notes Category Not es General Examination GENERAL APPEARANCE: well developed , well nourished HEAD: normocephalic HEART: regular rate and rhy thm, no murmurs, rubs, gallops LUNGS: no wheezes, rales, r honchi, good air movement, clear to auscultation bilaterally SKIN: good turgor EXTREMITIES: no edema calfs are s oft and non tender
--- OUTSIDE RECORDS SUMMARY | 2024-08-02 13:22 | XMS_ITS | Encounter Summary ---
Author Organization [facility] Address [address] [place] [address] Care Team Providers Care Pot Puncher Name Role Phone Mariam Chapa MD Primary Care Provider [phone] Reason for Visit * Reason Onset Date Comments hospital follow up 01/28/2018 Please call p atient for hosp f/u appt. D/C from [facility] on 01/27 for ACS Eval. Encounter Details Date Type Department Care Team Description 01/28/2018 Telephone Adult Medicine - [place] [address] [place] [address] Mariam Chapa MD [address] [place] [address] hospital follow up (Please call patient for hosp f/u appt. D/C from [facility] on 01/27 for ACS Eval.) Social History Tobacco Use Types Packs/Day Years [...] Miscellaneous Notes * Telephone Encounter - Berenice Hollins Rn - 01/28/2018 5:32 PM EDT Call to pt. She was d/c from [facility], syncopal event on Wednesday, She was sick to her stomach x 2 , sweats, slumped on the wall, Passed out, Pt was rice in color, sweats, admitted to hosp Given fluids, and observed , seen by hospice clinical manager, jennifer low, Her d dimer was mildly elevated, ekg changes , the told it was normal documented in this encounter Plan of Treatment Not on file documented as of this encounter Visit Diagnoses Not on filedocumented in this encounter Care Teams Pot Puncher Relationship Specialty Start Date End Date Mariam Chapa MD [address] [place] [address] PCP - General 07/21/06 documented as of this encounter
--- OUTSIDE RECORDS SUMMARY | 2024-08-02 13:22 | XMS_ITS | Encounter Summary ---
Author Organization [facility] Address [address] [place] [address] Care Team Providers Care Fuel House Attendant Name Role Phone Millicent Chapa MD Primary Care Prov ider Reason for Visit * Reason Onset Date Comments Joint Swelling 07/05/2024 Ankles Swelling Encounter Details Date Type Department Care Team (Late st Contact Info) Description 07/05/2024 Telephone Adult Medicine [facility] [address] [place] [phone] Millicent Chapa MD [address] [place] [address] Joint Swelling (Ankles Swelling ) Social History [...] patient. Okay to reach out to the rack maker whether it will be all right to take the methotrexate and ibuprofen together .will see patient on the * Amina Baez RN - 07/05/2024 10:11 AM EST Call to patient. [facility] 07/03. Methotrexate in ER. Oral methotrexate [...] Appt scheduled 07/11 for ER FU Contacted [facility] and requested ER notes. Will forward to PCP once received * Kenan Ramírez - 07/05/2024 9:56 AM EST Patient call requires triage: Symptoms patient is presenting: [facility] 07/03/24 for both ankle and knee [...] traveled recently to another state outside of [place], [place], [place], [place], [place], [place], [place]? no o If yes, did you quarantine [...] yes, gather 3rd republican insurance information Third Green Party Information: not applicable PCP: Millicent Chapa MD Payor: [facility] / Plan: [facility] PPO / Product Type: *No Product type* / documented in this encounter Plan of Treatment Upcoming Encounters Date Type Department Care Team (Late st Contact Info) Description 08/17/2024 9:30 AM EDT Office Visit Adult [facility] [address] [place] [phone] Fredrick Munoz PA [address] [place] [address] 09/27/2024 8:30 AM EDT Office Visit [facility] [address] [place] [address] Millicent Chapa MD [address] [place] [address] documented as of this encounter Visit Diagnoses Not on filedocumented in this encounter Care Teams Fuel House Attendant Relationship Specialty Start Date End Date Millicent Chapa MD [address] [place] [address] PCP - General 07/21/06 documented as of this encounter
--- OUTSIDE RECORDS SUMMARY | 2024-08-02 13:22 | XMS_ITS | Encounter Summary ---
Author Organization [facility] Address [address] [place] [address] Care Team Providers Care Photographer'S Assistant Name Role Phone Mariam Chapa MD Primary Care Provider [phone] Encounter Details Date Type Department Care Team Description 08/11/2011 Night Triage Doc Medical Records [address] [place] [address] Abstract, Provider Social History Tobacco Use Types [...] on filedocumented in this encounter Care Teams Photographer'S Assistant Relationship Specialty Start Date End Date Mariam Chapa, [address] [place] [address] PCP - General 07/21/06 documented as of this encounter
--- OUTSIDE RECORDS SUMMARY | 2024-08-02 13:22 | XMS_ITS | Encounter Summary ---
Author Organization [facility] Address [address] [place] [address] Care Team Providers Care Cattle Knocker Name Role Phone Millicent Chapa MD Primary Care Prov ider Reason for Visit * Reason Onset Date Comments Medication Problem 07/20/2024 HYDROmorphone (Dilaudid) 2 mg tablet Encounter Details Date Type Department Care Team ([facility] st Contact Info) Description 07/20/2024 Telephone Adult Medicine [facility] [address] [place] [address] Fredrick Munoz PA [address] [place] [address] Medication Problem (HYDROmorphone (Dilaudid) 2 mg tablet ) Social History Tobacco Use Types Packs/Day [...] as of this encounter Progress Notes * Vilma Jasso MA - 07/20/2024 2:12 PM EST Called the pt and informed her to call around to local pharmacies to find the dose she is looking for. * Carolina Day - 07/20/2024 12:34 PM EST Medication Problem: What is the name of the medication patient is having a problem with?: HYDROmorphone (Dilaudid) 2 mgtablet What is the problem?: 2MG on residential backorder, only have 8mg tablets in stock, please send new script if appropriate Who is calling about the problem? : A pharmacist: Pharmacy: [facility] Pharmacist Name: x Pharmacy Is this a NEW medication?: no How long has the patient been taking this medication? NA Who prescribed this medication for the patient? NA Who is patients PCP?: Millicent Chapa MD Payor: [facility] / Plan: [facility] PPO / Product Type: *No Product type* / documented in this encounter Plan of Treatment Upcoming Encounters Date Type Department Care Team (Late st Contact Info) Description 08/17/2024 9:30 AM EDT Office Visit Adult [facility] [address] [place] [address] Fredrick Munoz PA [address] [place] [address] 09/27/2024 8:30 AM EDT Office Visit [facility] [address] [place] [address] Millicent Chapa MD [address] [place] [address] documented as of this encounter Visit Diagnoses Not on filedocumented in this encounter Care Teams Cattle Knocker Relationship Specialty Start Date End Date Millicent Chapa MD [address] [place] [address] PCP - General 07/21/06 documented as of this encounter
--- OUTSIDE RECORDS SUMMARY | 2024-08-02 13:22 | XMS_ITS | Encounter Summary ---
Author Organization [facility] Address [address] [place] [address] Care Team Providers Care Coffee Urn Attendant Name Role Phone Millicent Chapa MD Primary Care Prov ider Reason for Visit * Reason Onset Date Comments Letter for School/Work 07/17/2024 Encounter Details Date Type Department Care Team ([facility] st Contact Info) Description 07/17/2024 Telephone Adult [facility] [address] [place] [phone] Fredrick Munoz PA [address] [place] [address] Letter for School/Work Social History Tobacco Use Types Packs/Day Years [...] as of this encounter Progress Notes * Josefina Guerrero MA - 07/18/2024 12:09 PM EST Patient advised letter placed in ppu. 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 Please leave at front desk lead so pt can waste picker when done. [phone] documented in this encounter Plan of Treatment Upcoming Encounters Date Type Department Care Team (Late st Contact Info) Description 08/17/2024 9:30 AM EDT Office Visit Adult Medicine [facility] [address] [place] [phone] Fredrick Munoz PA [address] [place], [place] 09/27/2024 8:30 AM EDT Office Visit [facility] [address] [place] [phone] Millicent Chapa MD [address] [place] [address] documented as of this encounter Visit Diagnoses Not on filedocumented in this encounter Care Teams Coffee Urn Attendant Relationship Specialty Start Date End Date Millicent Chapa MD [address] [place] [address] PCP - General 07/21/06 documented as of this encounter
--- OUTSIDE RECORDS SUMMARY | 2024-08-02 13:22 | XMS_ITS | Encounter Summary ---
Author Organization [facility] Address [address] [place] [address] Care Team Providers Care Hog Ribber Name Role Phone Millicent Chapa MD Primary Care Prov ider Reason for Visit * Reason Onset Date Comments Joint Swelling 07/03/2024 Encounter Details Date Type Department Care Team (Late st Contact Info) Description 07/03/2024 Telephone Adult Medicine [facility] [address] [place] [phone] Millicent Chapa MD [address] [place] [address] Joint Swelling Social History Tobacco Use Types [...] traveled recently to another state outside of [place], [place], [place], [place], [place], [place], [place]? no o If yes, did you quarantine [...] of accident/Injury: No If yes, gather 3rd constitution party insurance information Third Republican Information: not applicable PCP: Millicent Chapa MD Payor: GUNNAR Caputo [place] / Plan: [facility] PPO / Product Type: *No Product type* / documented in this encounter Plan of Treatment Upcoming Encounters Date Type Department Care Team (Late st Contact Info) Description 08/17/2024 9:30 AM EDT Office Visit Adult [facility] [address] [place] [address] Fredrick Munoz PA [address] [place], [place] 09/27/2024 8:30 AM EDT Office Visit [facility] [address] [place] [address] Millicent Chapa MD [address] [place] [address] documented as of this encounter Visit Diagnoses Not on filedocumented in this encounter Care Teams Hog Ribber Relationship Specialty Start Date End Date Millicent Chapa MD [address] [place] [address] PCP - General 07/21/06 documented as of this encounter
--- OUTSIDE RECORDS SUMMARY | 2024-08-02 13:22 | XMS_ITS | Encounter Summary ---
Author Organization [facility] Address [address] [place] [address] Care Team Providers Care Conference Concierge Name Role Phone Mariam Chapa MD Primary Care Provider [phone] Encounter Details Date Type Department Care Team Description 11/29/2013 Data Control Clerk Supervisor Report Medical Records [address] [place] [address] Social History Tobacco Use Types Packs/Day Years [...] on filedocumented in this encounter Care Teams Conference Concierge Relationship Specialty Start Date End Date Mariam Chapa MD [address] [place] [address] PCP - General 07/21/06 documented as of this encounter
== END 2024-08-02 11:04 | disposition home or self-care (01) ==
LOC: HO.NEURO 11:03
PROVIDERS: PCP Internal Medicine; Visit Provider Physical Medicine & Rehabilitation
DX: R20.2 Paresthesia of skin (principal); G57.30 Lesion of lateral popliteal nerve, unspecified lower limb
CPT/HCPCS: 95886; 95908

== ENCOUNTER → 2024-08-02 11:09 | Outpatient (BNV) | payer BC, SELFPAY | PROVIDERS: PCP Internal Medicine; Visit Provider Physical Medicine & Rehabilitation | DX: G57.32 Lesion of lateral popliteal nerve, left lower limb (principal); R20.2 Paresthesia of skin | CPT/HCPCS: 95886; 95908 ==

== ENCOUNTER 2024-08-11 13:25 | Outpatient (REF) | payer BC, SELFPAY ==
[2024-08-11 13:29] LABS: MANUAL DIFF FLAG NO
[2024-08-11 13:35] LABS: Basophils Percent Auto 0.8 % (0-2); Eosinophils Absolute Auto 0.1 X10*3/uL (0.0-0.4); Eosinophils Percent Auto 2.1 % (0-4); Hematocrit 36.7 % (37.0-47.0); Hemoglobin 11.5 g/dl (12.0-16.0); Imm Gran Abs Auto 0.01 X10*3/uL (0.00-0.03); Imm Gran Pct Auto 0.3 % (0.0-0.4); Lymphocytes Absolute Auto 0.9 X10*3/uL (1.2-4.9); Lymphocytes Percent Auto 22.2 % (20-40); Mean Corpuscular HGB Conc 31.3 g/dl (31.0-35.0); Mean Corpuscular Hemoglobin 29.1 pg (27.0-33.0); Mean Corpuscular Volume 92.9 fL (80.0-98.0); Mean Platelet Volume 11.1 fL (9.4-12.3); Monocytes Absolute Auto 0.3 X10*3/uL (0.1-1.2); Monocytes Percent Auto 8.1 % (2-11); Neutrophils Absolute Auto 2.6 x10*3/uL (2.0-8.3); Neutrophils Percent Auto 66.5 % (45-73); Platelet Count 249 X10*3/uL (160-400); Red Blood Count 3.95 X10*6/uL (4.20-5.50); Red Cell Distribution Width 12.1 % (11.0-16.0); White Blood Count 3.8 X10*3/uL (4.8-10.8)
[2024-08-11 13:42] LABS: Estimated Average Glucose 111 mg/dL; Hemoglobin A1c % 5.5 % (<6.0)
[2024-08-11 13:49] LABS: Alanine Aminotransferase 20 U/L (0-31); Albumin Level 4.3 g/dL (3.5-5.0); Anion Gap 12 (12-20); Aspartate Amino Transferase 24 U/L (5-31); Bilirubin Total 0.3 mg/dL (0.0-1.0); Blood Urea Nitrogen 30 mg/dL (9-16); Calcium 9.8 mg/dL (8.4-10.2); Carbon Dioxide 29 mmol/L (22-29); Chloride 106 mmol/L (96-108); Estimated Glomerular Filt Rate > 60; Glucose Fasting 99 mg/dL (60-99); Potassium 4.5 mmol/L (3.3-5.1); Sodium 142 mmol/L (135-145); Total Protein 6.9 g/dL (6.5-8.0)
[2024-08-11 14:19] LABS: Erythrocyte Sedimentation Rate 17 MM/HR (0-20)
--- OUTSIDE RECORDS SUMMARY | 2024-08-11 15:02 | XMS_ITS | Encounter Summary ---
Author Organization [facility] Address [address] [place] [address] Care Team Providers Care Manager Hi Name Role Phone Millicent Chapa MD Primary Care Prov ider Encounter Details Date Type Department Care Team (Late Contact Info) Description 08/10/2024 Telephone Adult [facility] [address] [place] [phone] Fredrick Munoz PA [address] [place] [address] Social History Tobacco Use Types Packs/Day Years [...] as of this encounter Progress Notes * TENISHA Soliz - 08/10/2024 12:45 PM EDT DME Please pend order for rolling walker with seat due to tibial plateau fracture and generalized muscle weakness. Thank you documented in this encounter Plan of Treatment Upcoming Encounters Date Type Department Care Team (Late Contact Info) Description 08/17/2024 9:30 AM EDT Office Visit Adult [facility] [address] [place] [phone] Fredrick Munoz PA [address] [place] [address] 09/27/2024 8:30 AM EDT Office Visit Adult Medicine - [place] [address] [place] [address] Millicent Chapa MD [address] [place] [address] documented as of this encounter Visit Diagnoses Not on filedocumented in this encounter Care Teams Manager Hi Relationship Specialty Start Date End Date Millicent Chapa MD [address] [place], [place] PCP - General 07/21/06 documented as of this encounter
--- OUTSIDE RECORDS SUMMARY | 2024-08-11 15:02 | XMS_ITS | Encounter Summary ---
Author Organization [facility] Address [address] [place] [address] Care Team Providers Care Senior Cost Accountant Name Role Phone Millicent Chapa MD Primary Care Prov ider Reason for Visit * Reason Onset Date Comments Call Back 08/08/2024 Joint Swelling 08/08/2024 Encounter Details Date Type Department Care Team ([facility] st Contact Info) Description 08/08/2024 Telephone Adult Medicine [facility] [address] [place] [address] Fredrick Munoz PA [address] [place] [address] Call Back; Joint Swelling Social History Tobacco Use Types [...] Progress Notes * Amina Baez RN - 08/08/2024 11:34 AM EDT Spoke with patient. Received letter yesterday stating we do not have behavioral health at [place]. The referral for is from May. Unsure of status of this. Patient is confused about the referral. Bilateral ankle edema. 2 plus calves Pain to walk (feet and ankles). Throws off gait which affects the knee pain. Burning pain heel, left lateral side of knee and ankle pain. Still going to PT twice per week Has not gotten EMG results back yet, expecting them this week. Taking tylenol and motrin. Wearing compression stockings. Has cut back on nsaid dosing due to swelling which helped a little but in turn cannot take it for pain. Used last hydromorphone tablet today. Unsure how else to manage pain. Feels stuck between a rock and a hard place due to not really having treatment for the acute pain. States I feel like I've done everything Has tried ice/heat/diclofenac. Flexing foot OK, does not have a foot drop Asking for next best move with regard to treatment plan. Cannot take lyrica made her labile in the past. Sees a therapist weekly in [place] To [facility]IR[facility] Angel, patient is scheduled on 08/10 with you. * Leonard Celestin - 08/08/2024 8:37 AM EDT Pt is in pain and has had some new swelling on the lateral side of her L leg, the swelling started after she fell on stairs at physical therapy. States there is a lot going on but needs a new treatment plan and would like to talk to someone clinical to get a clinical course going, needs a referral to pain management or physical therapy. Pt has been trying other preventaive measures and nothing has seemed to work, please call the patient EDUIN: [phone] documented in this encounter Plan of Treatment Upcoming Encounters Date Type Department Care Team (Late st Contact Info) Description 08/17/2024 9:30 AM EDT Office Visit Adult Medicine [facility] [address] [place] [address] Fredrick Munoz PA [address] [place] [address] 09/27/2024 8:30 AM EDT Office Visit Adult Medicine [facility] [address] [place] [address] Millicent Chapa MD [address] [place] [address] documented as of this encounter Visit Diagnoses Not on filedocumented in this encounter Care Teams Senior Cost Accountant Relationship Specialty Start Date End Date Millicent Chapa MD [address] [place] [address] PCP - General 07/21/06 documented as of this encounter
--- OUTSIDE RECORDS SUMMARY | 2024-08-11 15:02 | XMS_ITS | Patient Health Record ---
Author Organization Ernie Chen MD Address [address] [place], [place] [id number] Care Team Providers Care Salt Grinder Name Role Phone Ernie Chen Primary Care Provider Allergies Allergen (clinical drug ingredient) Drug/Non Drug Allergy documented on EMR Reaction Allergy Type Onset Date Status Substance with sulfonamide structure and antibacterial mechanism of action (substance) Sulfa Antibiotics rash Drug Allergy Active ciprofloxacin Cipro Unknown Drug Allergy Act vaishali Reason For Referral Reason OSTEOPOROSIS Diagnosis 1 Osteoporosis (M81.0) Referral Organization Ernie Chen MD Referring Provider First Name Ernie Referring Provider Last Name April Referring Provider Speciality Internal M edicine Referred Provider Lazara Samuel Referred Provider Specialty Endocrinolog y General Notes Viv Mendez 08/11/2024 11:24:51 AM >REFERRAL WILL BE FAXED AFTER PATIENT HAS HER BONE DENSITY TEST Referral Priority Routine Medications Medication SIG (Take, Route, Frequency, Duration) Notes Start Date End Date Status Tylenol 325 MG 1 tablet as needed O rally every 6 hrs Active Ativan 0.5 MG 1 tablet at bedtime as needed Orally twice a day Active Albuterol Sulfate HFA 108 (90 Base) MCG/ACT [...] Problem Status W/U Status Risk Notes Problem 96453235 Other chronic pain (G89.29) Active confirmed Problem Osteoporosis (51179990) Osteoporosis (M81.0) Active confirmed Problem 947306131 Generalized arthritis (M19.90) Active confirmed Vital Signs Blood pressure diastolic 60 mm Hg 08/11/2024 Height 61 in 08/11/2024 Blood pressure systolic 92 mm Hg 08/11/2024 Weight 100 lbs 08/11/2024 BMI 18.89 kg/m2 08/11/2024 Encounters Encounter Location Date Provider Diagnosis Ernie Chen MD [address] [place] [id number] 07/14/2024 Ernie Chen Generalized arthriti s M19.90 ; Bilateral swelling of feet M79.89 ; Other chronic pain G89.29 ; Pain in right ankle and joints of right foot M25.571 and Pain in left ankle and joints of left foot M25.[address] Chen MD [address] [place] [id number] 08/11/2024 Ernie Chen Osteoporosis M81.0 and Achilles bursitis or tendinitis M76.60 Ernie Chen MD [address] [place] [id number] 08/11/2024 Ernie Chen Assessments Encounter Date Diagnosis (ICD Code) Assessment [...] on nsaids due to swelling if feet 08/11/2024 Osteoporosis (ICD-10 - M81.0) referral to endocrine at [facility], pending diagnostic testing. WILL REFER TO [facility] ENDO AFTER BONE DENSITY RESULTS ARE AVAILABLE. THE BONE DENSITY ORDER HAS BEEN FAXED TO [facility] CENTRALIZED SCHEDULING 08/11/2024 Achilles bursitis or tendinitis (ICD-10 - M76.60) is going to physical therapy for her knee so will have them treat her achilles 07/14/2024 Other chronic pain (ICD-10 - G89.29) [...] to try lyrica again Plan Of Treatment Pending Test Test Name Order Date BONE DENSITY DEXA 08/11/2024 Complete Blood Count Auto Diff 5 Erythrocyte Sedimentation Rate 5 Comprehensive [place]. Panel Fast 5 Vitamin D 25-OH Total 08/11/2024 Hemoglobin A1c 08/11/2024 Next Appt Details Provider Name:Ernie lozano, 09/22/2024 10:00:00 AM, [address] [place] [address], [facility] [address], [place], [place], [id number], Insurance Providers Payer Name Payer Address Payer Phone Subscriber Number Group Number Insured Name Patient Relationship to Insured Coverage Start Date Coverage End Date [employer]IELD [address] [place], [place] [id number] Ruby Casanova Self - patient is the insured
--- OUTSIDE RECORDS SUMMARY | 2024-08-11 15:02 | XMS_ITS | Encounter Summary ---
Author Organization [facility] Address [address] [place] [address] Care Team Providers Care Security Threat Analyst Name Role Phone Millicent Chapa MD Primary Care Prov ider Encounter Details Date Type Department Care Team (Late st Contact Info) Description 07/11/2024 Telephone Adult Medicine [facility] [address] [place] [phone] Fredrick Munoz PA [address] [place] [address] Social History Tobacco Use Types Packs/Day Years [...] 1:39 PM EST Sent fax over to [facility] for above records with success. * TENISHA Soliz - 07/11/2024 2:43 PM EST Please request notes from [facility], [facility] documented in this encounter Plan of Treatment Upcoming Encounters Date Type Department Care Team (Late st Contact Info) Description 08/17/2024 9:30 AM EDT Office Visit Adult Medicine [facility] [address] [place] [phone] Fredrick Munoz PA [address] [place], [place] 09/27/2024 8:30 AM EDT Office Visit [facility] [address] [place] [phone] Millicent Chapa MD [address] [place], [place] documented as of this encounter Visit Diagnoses Not on filedocumented in this encounter Care Teams Security Threat Analyst Relationship Specialty Start Date End Date Millicent Chapa MD [address] [place], [place] PCP - General 07/21/06 documented as of this encounter
--- OUTSIDE RECORDS SUMMARY | 2024-08-11 15:02 | XMS_ITS ---
Author Organization Ernie Chen MD Address [address] [place], [place] [phone] Care Team Providers Care Maintenance Worker Swimming Pool Name Role Phone Ernie Chen Primary Care Provider [phone] REASON FOR VISIT BONE DENSITY Encounters Encounter Location Date Provider Diagnosis Ernie Chen MD [address] [place], [place] [phone] 08/11/2024 Ernie Chen Plan Of Treatment Next Appt Details Provider Name:Ernie Smith ier, 09/22/2024 10:00:00 AM, [address], [address], [place], [place], [id number], Progress Notes * Ruby CASANOVA ADOB: [birth year] (63 yo F)Acc No.[id number]:08/11/2024 Patient:?Ruby CASANOVA :1960???Age:63 Y???Sex:Female Address:[address] [place], [address] * * Date:?
--- OUTSIDE RECORDS SUMMARY | 2024-08-11 15:02 | XMS_ITS | Encounter Summary ---
Author Organization [facility] Address [address] [place] [address] Care Team Providers Care Creative Writing English Professor Name Role Phone Millicent Chpaa MD Primary Care Prov ider Reason for Visit * Reason Onset Date Comments Joint Swelling 07/03/2024 Encounter Details Date Type Department Care Team (Late st Contact Info) Description 07/03/2024 Telephone Adult Medicine [facility] [address] [place] [phone] Millicent Chapa MD [address] [place] [address] Joint Swelling Social History Tobacco Use Types [...] traveled recently to another state outside of [place], [place], [place], [place], [place], [place], [place]? no o If yes, did you quarantine [...] yes, gather 3rd republican insurance information Third Democrat Information: not applicable PCP: Millicent Chapa MD Payor: GUNNAR Caputo [place] / Plan: [facility] PPO / Product Type: *No Product type* / documented in this encounter Plan of Treatment Upcoming Encounters Date Type Department Care Team (Late st Contact Info) Description 08/17/2024 9:30 AM EDT [facility] [address] [place] [address] Fredrick Munoz PA [address] [place], [place] 09/27/2024 8:30 AM EDT Office Visit [facility] [address] [place] [address] Millicent Chapa MD [address] [place] [address] documented as of this encounter Visit Diagnoses Not on filedocumented in this encounter Care Teams Creative Writing English Professor Relationship Specialty Start Date End Date Millicent Chapa MD [address] [place] [address] PCP - General 07/21/06 documented as of this encounter
--- OUTSIDE RECORDS SUMMARY | 2024-08-11 15:02 | XMS_ITS | Encounter Summary ---
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 Please leave at front clerk so pt can cook pickled meat when done. [phone] documented in this encounter Plan of Treatment Upcoming Encounters Date Type Department Care Team (Late st Contact Info) Description 08/17/2024 9:30 AM EDT Office Visit Adult Medicine [facility] [address] [place] [phone] Fredrick Munoz PA [address] [place] [address] 09/27/2024 8:30 AM EDT Office Visit [facility] [address] [place] [phone] Millicent Chapa MD [address] [place] [address] documented as of this encounter Visit Diagnoses Not on filedocumented in this encounter Care Teams Commercial Real Estate Paralegal Relationship Specialty Start Date End Date Millicent Chapa MD [address] [place] [address] PCP - General 07/21/06 documented as of this encounter
--- OUTSIDE RECORDS SUMMARY | 2024-08-11 15:02 | XMS_ITS | Encounter Summary ---
Author Organization [facility] Address [address] [place] [address] Care Team Providers Care Tree Fruit And Nut Farming Supervisor Name Role Phone Millicent Chapa MD Primary Care Prov ider Reason for Visit * Reason Onset Date Comments A call back 07/14/2024 Regarding treatm ent for pain Medication Problem 07/14/2024 Encounter Details Date Type Department Care Team (Late st Contact Info) Description 07/14/2024 Telephone Adult Medicine [facility] [address] [place] [address] Millicent Chapa MD [address] [place] [address] A call back (Regarding treatment for pain); [...] it and would like it sent to [facility] * TENISHA Soliz - 07/14/2024 7:11 PM EST [phone] (home) [phone] (work) Called and left detailed message. Small [...] 9:30 AM EDT Office Visit Adult Medicine [facility] [address] [place] [address] Fredrick Munoz PA [address] [place] [address] 09/27/2024 8:30 AM EDT Office Visit [facility] [address] [place] [address] Millicent Chapa MD [address] [place] [address] documented as of this encounter Visit Diagnoses Not on filedocumented in this encounter Care Teams Tree Fruit And Nut Farming Supervisor Relationship Specialty Start Date End Date Millicent Chapa MD [address] [place] [address] PCP - General 07/21/06 documented as of this encounter
--- OUTSIDE RECORDS SUMMARY | 2024-08-11 15:02 | XMS_ITS | Clinical Summary ---
Author Organization [facility] [address] [facility] Address [address] [place] [address] Phone Care Team Providers Care Securities Vault Supervisor Name Role Phone Millicent Chapa MD [...] Derived 02/05/2006 Sulfa (Sulfonamide Antibiotics) 02/05/2006 Medications albuterol HFA (PROAIR HFA ; PROVENTIL HFA ; VENTOLIN HFA) 90 mcg/actuation inhaler Inhale 2 Puffs into the lungs every 4 hours as needed for Cough or Wheezing. 08/26/19 24 Active ondansetron ODT (ZOFRAN-ODT) 4 mg disintegrating tablet Take 1 Tablet by mouth every 8 hours as needed for Nausea (prn). Take 1 Tablet by mouth every 8 hours as needed. 12/06/20 23 Active ibuprofen (MOTRIN ORAL) Take by mouth. Active LORazepam (ATIVAN) 0.5 mg tablet Take 1 tablet (0.5 mg total) by mouth 2 (two) times a day. Max Daily Amount: 1 mg 56 tablet 2 08/10/19 Active HYDROmorphone (Dilaudid) 2 mg tabletIndications :Pain of left heel,Chronic pain of left knee,Closed fracture of left tibial plateau, sequela Take 1 tablet (2 mg total) by mouth every 8 (eight) hours for 5 days. Max Daily Amount: 6 mg 20 tablet 08/11/19 25 Active pregabalin (LYRICA) 25 mg capsule Take 1 capsule (25 mg total) by mouth 1 (one) time each day. Max Daily Amount: 25 mg 30 capsule 5 08/11/19 25 Active UNABLE TO FIND Misc. Devices (Free Spirit Knee/Leg Walker) Misc, 1 Device by Does not apply route daily. 01/28/20 025 Discontinued LORazepam (ATIVAN) 0.5 mg tablet Take 1 tablet (0.5 mg total) by mouth 2 (two) times a day. Max Daily Amount: 1 mg 56 tablet 2 05/17/20 24 025 Discontinued(Re order) HYDROmorphone (Dilaudid) 2 mg tablet Take 1 tablet (2 mg total) by mouth every 4 (four) hours if needed for severe pain for up to 5 days. Max Daily Amount: 12 mg 20 tablet 07/14/19 25 025 Discontinued(Re order) HYDROmorphone (Dilaudid) 2 mg tabletIndications :Chronic pain of left knee Take 1 tablet (2 mg total) by mouth every 4 (four) hours if needed for severe pain for up to 5 days. Max Daily Amount: 12 mg 20 tablet 07/18/19 25 025 Active Problems Problem Noted Date Diagnosed [...] Encounters Date Type Department Care Team Description 08/10/2024 9:00 AM EDT Office Visit Adult [address] [phone] Fredrick Munoz PA Pain of left heel (Primary Dx); Chronic pain of left knee; Closed fracture of left tibial plateau, sequela; Muscle weakness (generalized) 08/10/2024 Telephone Adult [address] [address] Fredrick Munoz PA 08/08/2024 Telephone Adult [address] [address] Fredrick Munoz PA Call Back; Joint Swelling 07/20/2024 Telephone Adult [address] [phone] Fredrick Munoz PA Medication Problem (HYDROmorphone (Dilaudid) 2 mg tablet ) 07/17/2024 Telephone Adult [address] [phone] Fredrick Munoz PA Letter for School/Work 07/14/2024 Telephone Adult [address] [phone] Millicent Subramanian MD A call back (Regarding treatment for pain); Medication Problem 07/11/2024 10:00 AM EST Office Visit Adult [address] [phone] Fredrick Munoz PA Chronic pain of left knee (Primary Dx); Bilateral edema of lower extremity 07/11/[address] [address] Fredrick Munoz PA 07/05/[address] [address] Millicent Subramanian MD Joint Swelling (Ankles Swelling ) 07/03/[address] [address] Millicent Subramanian MD Joint Swelling 06/20/[address] [address] Millicent Subramanian MD Pain 06/15/2024 10:00 AM EST Office Visit [address] [phone] Millicent Subramanian MD Closed fracture of left tibial plateau with delayed healing, subsequent encounter (Primary Dx); Chronic pain syndrome; Osteoporosis, unspecified osteoporosis type, unspecified pathological fracture presence 05/17/[address] [address] Millicent Subramanian MD Knee Pain 05/16/[address] [address] Millicent Subramanian MD from Last 3 Months Immunizations Name Administration Dates Next Due Influenza Quadravalent, MDCK , 0.5ml, with preservative (Flucelvax) 6mo and older 04/14/2021 Defixo/Zigmo SARS-CoV-2 COVID -19, vector-nr, rS-Ad26, preservative free [...] Sign Reading Time Taken Comments Blood Pressure 104/59 08/10/2024 8:59 AM EDT Pulse 81 08/10/2024 8:59 AM EDT Temperature 36.5 ??C (97.7 ??F) 08/10/2024 8:59 AM ED T Respiratory Rate - - Oxygen Saturation - - Inhaled Oxygen Concentration - - Weight 45.4 kg (100 lb) 08/10/2024 8:59 AM EDT Height 154.9 cm (5' 1 ) 08/10/2024 8:59 AM EDT Body Mass Index 18.89 08/10/2024 8:59 AM EDT Plan of Treatment Upcoming Encounters Date Type Department Care Team (Late st Contact Info) Description 08/17/2024 9:30 AM EDT Office Visit Adult [facility] [place] [address] [place] [address] Fredrick Munoz PA [address] [place] [address] 09/27/2024 8:30 AM EDT Office Visit Adult [facility] [place] [address] [place] [address] Millicent Chapa MD [address] [place] [address] Health Maintenance Due Date Last Done Comments [...] (2 - 2023-2 5 season) 2024 03/27/2021 Colorectal Cancer Screening: Colonoscopy 10/26/2024 10/26/2014 Breast Cancer Screening 2025 12/31/19 24, 12/31/2023 Osteoporosis Screening (Bone Density Screening) 07/06/2032 07/06/2022 HIV Screening Completed 02/03/2011 MMR Vaccines Aged Out 02/18/2017, 02/18/2017 No longer eligible based on patient's age to complete this topic Varicella Vaccines Aged Out 02/18/2017, 02/18/2017 No longer eligible based on patient's age to complete this topic Hepatitis C Screening Completed 04/03/2019 Influenza Vaccine Completed 08/04/2024, 03/26/2023, 04/14/2021 HIB Vaccines Aged Out No longer eligi [...] to have osteoporosis by WHO criteria. The [facility] of [facility] Medicine recommends using National [...] screening schedule based on jana Mahmood., [facility] June 18, 2011 for patients [...] to have osteoporosis by WHO criteria. The [facility] Department of Internal Medicine recommendsusing National Osteoporosis [...] screening schedule based on otis Mahmood al., [place]January 2011 for patients with osteopenia (based on hip BMD T-score) is as follows: * advanced osteopenia (T scores -2.00 to -2.49), BMD testing every year * moderate osteopenia (T scores -1.50 to -1.99), BMD testing every 5years mild osteopenia or normal BMD (T scores -1.50 and higher), BMD testingevery 15 years Result [facility] Millicent Chapa MD IM DXA PROCEDURES Final Result * Hepatitis C Screening (04/03/2019) [facility] Hepatitis C Screening abstracted Result [facility] Final Result * Pap Smear (12/29/2017) [facility] Pap smear abstracted, no interpretation Result [facility] Final Result * Colonoscopy (10/26/2014) [facility] Colonoscopy abstracted, no interpretation Anatomical Region Laterality Modality Other Result [facility] Final Result * HIV Screening (02/03/2011) [facility] HIV Screening abstracted Result [facility] Final Result from Last 3 Months or Most Recently Relevant to Health Maintenance Insurance [facility] Care Teams Securities Vault Supervisor Relationship Specialty Start Date End Date Millicent Chapa MD [address] [place] [address] PCP - General 07/21/06
--- OUTSIDE RECORDS SUMMARY | 2024-08-11 15:02 | XMS_ITS ---
Author Name [facility] Organization Unknown Care Team Organization Name Specialty Phone Email Start Date End Da te [facility] Not Found Primary Care 07/19/2023 [facility] Not Found Primary Care 07/19/2023
--- OUTSIDE RECORDS SUMMARY | 2024-08-11 15:02 | XMS_ITS ---
Author Organization Ernie Chen MD Address [address] [place], [place] [phone] Care Team Providers Care Bleacher Operator Name Role Phone Ernie Chen Primary Care [...] Problem Status W/U Status Risk Notes Problem 621977500 Generalized arthritis (M19.90) Active confirmed Problem 65020744 Other chronic pain (G89.29) Active confirmed Vital Signs Blood pressure systolic 104 mm Hg 07/14/19 25 Blood pressure diastolic 58 mm Hg 025 Height 61 in 07/14/2024 Weight 100 lbs 07/14/2024 BMI 18.89 kg/m2 07/14/2024 Encounters Encounter Location Date Provider Diagnosis Enrie Chen MD [address] [place] [address] Drive [address] [place], [place] [phone] 07/14/2024 Ernie Chen Generalized arthritis M19.90 ; [...] Up: 4 Weeks, Reason: Provider Name:Ernie lozano, 09/22/2024 10:00:00 AM, [address], [address], [place], [id number], Progress Notes * Ruby CASANOVA ADOB: [birth year] (63 yo F)Acc No.[id number]:07/14/2024 Progress Notes Patient:?Ruby CASANOVA A Provider:?Ernie Chen MD :1960???Age:63 Y???Sex:Female D ate:07/14/2024 Address:[address] [place] [address], Latasha hernandez [id number] Subjective: * Chief Complaints: * ???New patient [...] throat.?Musculoskeletal:?Patient denies?muscle aches.?Comments?has been seen by [facility] recently. does have sun sensitivity. she thought [...] Marital status: . Travel outside of the [place]: no. ???Drug/Alcohol:?AUDIT-C (Standard)?Did you have a [...] MD Date:?0 07/14/2024 Generated for Yonatan ren/Aurelio/eTransmitting on:?08/11/2024 03:02 PM EDT History and Physical Notes * HPI (History [...]
--- OUTSIDE RECORDS SUMMARY | 2024-08-11 15:02 | XMS_ITS ---
Author Organization Ernie Chen MD Address [address] [place], [place] [id number] Care Team Providers Care Territory Account Executive Name Role Phone Ernie Chen Primary Care [...] HER BONE DENSITY TEST Referral Priority Routine REASON FOR VISIT 4 WEEK F/U Medications Medication SIG (Take, Route, Frequency, Duration) [...] as needed Orally twice a day Active Problems Problem Type SNOMED Code ICD Code Onset Dates Problem Status W/U Status Risk Notes Problem Osteoporosis (65850296) Osteoporosis (M81.0) Active confirmed Vital Signs Blood pressure systolic 92 mm Hg 08/12/19 25 Blood pressure diastolic 60 mm Hg 025 Height 61 in 08/11/2024 Weight 100 lbs 08/11/2024 BMI 18.89 kg/m2 08/11/2024 Encounters Encounter Location Date Provider Diagnosis Ernie Chen MD [address] [place], [place] [id number] 08/11/2024 Ernie Chen Osteoporosis M81.0 and Achilles bursitis or tendinitis M76.60 Assessments Encounter Date Diagnosis (ICD Code) Assessment Notes Treatment Notes Treatment Clinical Notes Section Notes 08/11/2024 Osteoporosis (ICD-10 - M81.0) referral to endocrine at [facility], pending diagnostic testing. WILL REFER TO [facility] ENDO AFTER BONE DENSITY RESULTS ARE AVAILABLE. THE BONE DENSITY ORDER HAS BEEN FAXED TO [facility] CENTRALIZED SCHEDULING 08/11/2024 Achilles bursitis or tendinitis (ICD-10 - M76.60) is going to physical therapy for her knee so will have them treat her achilles Plan Of Treatment Treatment Notes Assessment Notes Osteoporosis referral to endocrin e at [facility], pending diagnostic testing. WILL REFER TO [facility] ENDO AFTER BONE DENSITY RESULTS ARE AVAILABLE. THE BONE DENSITY ORDER HAS BEEN FAXED TO [facility] CENTRALIZED SCHEDULING Achilles bursitis or tendinitis is going to physical therapy for her knee so will have them treat her achilles Pending Test Test Name Order Date BONE DENSITY DEXA 08/11/2024 Complete Blood Count Auto Diff 5 Erythrocyte Sedimentation Rate 5 Comprehensive [place]. Panel Fast 5 Vitamin D 25-OH Total 08/11/2024 Hemoglobin A1c 08/11/2024 Referrals Referral Date Details 08/11/2024 08/11/2024, Lazara CALHOUN Next Appt Details Follow Up: 6 Weeks, Reason: Provider Name:Ernie Smith ier, 09/22/2024 10:00:00 AM, [address], [address], [place], [place], [id number], Progress Notes * Ruby CASANOVA ADOB: [birth year] (63 yo F)Acc No.[id number]:08/11/2024 Progress Notes Patient:?CASANOVASnehalRuby A Provider:?Ernie Chen MD :1960???Age:63 Y???Sex:Female D ate:08/11/2024 Address:[address], [place] [id number] Subjective: * Chief Complaints: * ???1. 4 WEEK F/U. * HPI: ???Symptom(s):?patient is a 63 yo female here for 4 week follow up visit, has tibial plateau fracture. has also had bilateral achilles tendonitis.? gets swelling in lateral aspect of her ankles. has edema from nsaids. * ROS:?General/Constitutional:?Denies?Chills.?Denies?Fatigue.?Denies?Fever.?Denies?Headache.?ENT:?Denies?Sore throat.?Respiratory:?Denies?Cough.?Denies?Shortness of breath at rest.?Denies?Shortness of breath with exertion.?Gastrointestinal:?Denies?Diarrhea.?Denies?Nausea.?pains in hips and buttocks. saw dr june and he didn't feel that she needed further follow up. wants referral to endocrine for osteoporosis. * Medical History:?Medical His tory Verified. * Medications:?Taking Ibuprofe n 600 MG Tablet 1 tablet with food or milk as needed Orally twice a day , Taking Albuterol Sulfate HFA 108 (90 Base) MCG/ACT Aerosol Solution 1 puff as needed Inhalation every 4 hrs , Taking Ativan 0.5 MG Tablet 1 tablet at bedtime as needed Orally twice a day , Taking Tylenol 325 MG Tablet 1 tablet as needed Orally every 6 hrs , Medication List reviewed and reconciled with the patient * Allergies:?Sulfa Antibiotics : rash, Cipro. Objective: * Vitals:?Ht: 61, Wt: 100, BMI :18.89, BP:92/60, Ht-cm: 154.94, Wt-k.36. * Examination: ???General Examination: ?GENERAL APPEARANCE:?well developed, well nourished.?HEAD:?normocephalic.?SKIN:?good turgor.?HEART:?regular rate and rhythm, no murmurs, rubs, gallops.?LUNGS:?no wheezes, rales, rhonchi, good air movement, clear to auscultation bilaterally.?EXTREMITIES:?with minimal tenderness in both achilles.? Assessment: * Assessment: 1.?Osteoporosis - M81.0 (Myla curt)???2.?Achilles bursitis or tendinitis - M76.60??? Plan: * Treatment: 2.?Achilles bursitis or tend initis?LAB: Vitamin D 25-OH Total Notes: is going to physical therapy for her knee so will have them treat her achilles?? * Procedure Codes:?01085 VENIP UNCT, ROUTINE* * Follow Up:?6 Weeks * * The named appointment provid er may or may not be the originator of this progress note, and it is not deemed complete until electronically signed by the appointment provider. Sign off status: Pending * Provider:?Ernie Chen MD Date:?0 08/11/2024 Generated for Yonatan ren/Aurelio/[employer] on:?08/11/2024 03:01 PM EDT History and Physical Notes * HPI (History of Present Illness) Category Sub-Category Detail Notes Category Not es Symptom(s) patient is a 63 yo female here for 4 week follow up visit, has tibial plateau fracture. has also had bilateral achilles tendonitis. gets swelling in lateral aspect of her ankles. has edema from nsaids. Examination Category Sub-Category Detail Notes Category Not es General Examination GENERAL APPEARANCE: well developed , well nourished HEAD: normocephalic HEART: regular rate and rhy thm, no murmurs, rubs, gallops LUNGS: no wheezes, rales, r honchi, good air movement, clear to auscultation bilaterally SKIN: good turgor EXTREMITIES: with minimal tendern ess in both achilles Consultation Request Notes Referral Date Referring Provider Referred Provider Not es 08/11/2024 Ernie Chen Robert OSTEOPORO SIS
--- OUTSIDE RECORDS SUMMARY | 2024-08-11 15:02 | XMS_ITS | Encounter Summary ---
Author Organization [facility] Address [address] [place] [address] Care Team Providers Care Vp Integrity Name Role Phone Millicent Chapa MD Primary Care Prov ider Reason for Referral * Consultation (Urgent) - Authorized Specialty Diagnoses / Procedures Referred By Contac t Referred To Contact Pain Medicine Diagnoses Pain of left heel Fredrick Munoz PA [address] [place], [place] Phone: tel: fax: [facility] Referral ID Status Reason Start Date Expiration Date Visits Requested Visits Authorized [id number] Authorized Specialty Services Required 08/10/2024 08/10/2025 1 1 * Consultation (Routine) - Pending Review Specialty Diagnoses / Procedures Referred By Contac t Referred To Contact Physical Therapy Diagnoses Pain of left heel Fredrick Munoz PA [address] [place], [place] Phone: tel: fax: Referral ID Status Reason Start Date Expiration Date Visits Requested Visits Authorized [id number] Pending Review Specialty Services Required 08/10/2024 08/10/2025 1 1 Reason for Visit * Reason Comments Leg Swelling Encounter Details Date Type Department Care Team ([facility] st Contact Info) Description 08/10/2024 9:00 AM EDT Office Visit Adult Medicine - [place] [address] [place] [phone] Fredrick Munoz PA [address] [place] [address] Pain of left heel (Primary Dx); Chronic pain of left knee; Closed fracture of left tibial plateau, sequela; Muscle weakness (generalized) Social History Tobacco Use [...] Mass Index 18.89 08/10/2024 8:59 AM EDT documented in this encounter Ordered Prescriptions Prescription Sig Dispense Quantity Refills Last Filled Start Date End Date pregabalin (LYRICA) 25 mg capsule Take 1 capsule (25 mg total) by mouth 1 (one) time each day. Max Daily Amount: 25 mg 30 capsule 5 08/10/2024 HYDROmorphone (Dilaudid) 2 mg tabletIndications: Pain of left heel,Chronic pain of left knee,Closed fracture of left tibial plateau, sequela Take 1 tablet (2 mg total) by mouth every 8 (eight) hours for 5 days. Max Daily Amount: 6 mg 20 tablet 08/10/2024 5 documented in this encounter Progress Notes * TENISHA Soliz - 08/10/2024 9:00 AM EDT Search online for Breg ice compression * TENISHA Soliz - 08/10/2024 9:00 AM EDT CHIEF COMPLAINT: Leg Swelling IDENTIFIER: Ruby Tarango is a 63 y.o. old female. HPI: Very complex patient here for follow-up. She is status post COVID infection in February and then significant surgery for tibial plateau fracture and delayed healing with multiple setbacks. Following with orthopedics, physiatry. Recently seenby Dr. Morillo and was told that the tibial fracture is completely healed. Just had EMG to determine if there is peroneal nerve or other dysfunction causing her symptoms of occasional numbness and tingling in the foot as well as pain and dysfunction. Still has a difficult time with weightbearing and is using a rolling walker. Would like to transition to a rolling walker with a seat. Has severe right heel pain with burning sensation extending throughout the foot that keeps her up at night. She wants to be cautious with Dilaudid and uses it very sparingly. Has had some good relief with a new item called a signal patch which she states helps to interrupt the nerve signals to the brain in some manner to reduce the sensation of pain. Still has occasional swelling and is not sure if this is from NSAID use versus dependent edema. Sheis seated quite a bit and finds it difficult to take care of herself with things such as feeding and admits that she is probably not getting enough protein in. Was recently seen by cardiology, had had Holter monitor with multiple triggered events but no pathology seen. There is consideration for use of beta-tavon or nitroglycerin for possible coronary artery vasospasm causing some of her intermittent chest pain but she is medically has not been using any of these medications. She is also currently seeing behavioral health counselor for the last 6 weeks and finds this useful. Would like to see a [place] based paint preparer to see if they could be helpful with her pain management. ROS: GENERAL: Negative for malaise, significant weight loss and fever NECK: Negative for lumps, goiter, pain, and significant neck swelling RESPIRATORY: No cough, wheezing or shortness of breath GI: Negative for abdominal discomfort, changes in bowel habits, blood in stool or black stools : Negative for dysuria, frequency, and incontinence PAST MEDICAL HISTORY: Patient Active Problem List [...] Outpatient Medications Marked as Taking for the 08/10/24 encounter (Office Visit) with TENISHA Soliz Medication [...] Sulfa (sulfonamide antibiotics) PHYSICAL EXAM: Blood pressure 104/59, pulse 81, temperature 36.5 ??C (97.7 ??F), temperature source Temporal, height 1.549 m (61 ), weight (!) 45.4 kg (100 lb). Body mass index is 18.89 kg/m??. BMI is 18.5 to 24.9 (within the normal range) and will be followed APPEARANCE: Alert and in no acute distress NECK: Neck supple, no adenopathy, thyroid symmetric and of normal size HEART: RRR with normal S1 and S2, no murmurs, no gallops, no JVD appreciated LUNG: clear to auscultation bilaterally EXTREMITIES: Bilateral compression stockings in place. KT tape overlying the left knee. No major edema or swelling noted. NEURO: Awake, alert and oriented x 3, Cranial nerves II-XII grossly intact, and patient using walker. Able to support weight with some mild discomfort. LABS: Abstract on 05/17/2024 Component Date Value Ref Range Status Hepatitis C Screening 04/03/2019 abstracted Final HIV Screening 02/03/2011 abstracted Final Annual BMP Blood Test 12/02/2021 abstracted Final Pap smear 12/29/2017 abstracted, no interpretation Final Colonoscopy 10/26/2014 abstracted, no interpretation Final LDL/HDL Ratio 04/03/2019 3 0 - 4 Final Triglycerides 04/03/2019 88 0 - 150 mg/dL Final Cholesterol 04/03/2019 259 (A) 0 - 200 mg/dL Final HDL 04/03/2019 88 >=40 mg/dL Final LDL Cholesterol 04/03/2019 154 (A) 0 - 100 mg/dL Final Hemoglobin A1C 08/26/2022 5.7 <=6.5 % Final IMPRESSION: 1. Pain of left heel 2. Chronic pain of left knee 3. Closed fracture of left tibial plateau, sequela 4. Muscle weakness (generalized) PLAN: I spent 44 minutes for this encounter with the combination of initial chart review, review of outside documentation, appropriate labs and imaging, patient interview and appropriate physical examination. This excludes any separately billable procedures. No orders of the defined types were placed in this encounter. Left heel pain: Adding an order for therapy. This could be modified if there is anything found withnerve entrapment but it does sound as though she has more myofascial pain and relying of these fibers through therapy could be beneficial. Provided Dilaudid for pain relief. Caution to use very sparingly, can use half a tablet. Continue with behavioral health therapy as this can also be a great adjunct to dealing with chronic pain. She is also given a referral to paint preparer at [facility]. PDMP reviewed and appropriate Risks of narcotic use were discussed with the patient and may include, but not limited to: Constipation, nausea, sleepiness or drowsiness, problems with coordination or balance that make it and safe to operate equipment of motor vehicles, confusion or other change in mental state, physicaldependence/addiction, psychological dependence/addiction, decreased appetite, urinary retention, slow and shallow breathing, over dose can lead to respiratory arrest and , sexual difficulties, loss of libido, erectile dysfunction in men. Other less common risks and side effects are possible. Discussed signs and symptoms warranting reevaluation. Risks, benefits, and side-effects of the medication were discussed and the patient expressed verbalunderstanding and consents to the plan. Followup as necessary. This note was created using dictation software and may contain syntax and grammar errors. ADDITIONAL ORDERS: None TENISHA Soliz on 08/10/2024 at 9:34 AM EDT documented in this encounter Plan of Treatment Upcoming Encounters Date Type Department Care Team (Late st Contact Info) Description 08/17/2024 9:30 AM EDT Office Visit Adult Medicine [facility] [address] [place] [phone] Fredrick Munoz PA [address] [place] [address] 09/27/2024 8:30 AM EDT Office Visit [facility] [address] [place] [phone] Millicent Chapa MD [address] [place] [address] Scheduled Referrals Name Type Priority Associated Diagnoses Order Schedule Ambulatory referral to Physical Therapy and Athletic Training Outpatient Referral Routine Pain of left heel 1 Occurrences starting 08/10/2024 until 08/10/2025 Ambulatory referral to Pain Medicine Outpatient Referral Routine Pain of left heel 1 Occurrences starting 08/10/2024 until 08/10/2025 documented as of this encounter Visit Diagnoses Diagnosis Pain of left heel- Primary Chronic pain of left knee Closed fracture of left tibial plateau, sequela Muscle weakness (generalized) documented in this encounter Discontinued Medications Medication Sig Discontinue Reason Start Date End Da te UNABLE TO FIND Misc. Devices ([employer] Knee/Leg Walker) Misc, 1 Device by Does not apply route daily. 01/28/2024 08/10/2024 documented as of this encounter Care Teams Vp Integrity Relationship Specialty Start Date End Date Millicent Chapa MD [address] [place] [phone] PCP - General 07/21/06 documented as of this encounter
--- OUTSIDE RECORDS SUMMARY | 2024-08-11 15:02 | XMS_ITS | Encounter Summary ---
Author Organization [facility] Address [address] [place] [address] Care Team Providers Care Assistant Director Of Nursing Name Role Phone Millicent Chapa MD Primary Care Prov ider Reason for Visit * Reason Onset Date Comments Medication Problem 07/20/2024 HYDROmorphone (Dilaudid) 2 mg tablet Encounter Details Date Type Department Care Team (Late st Contact Info) Description 07/20/2024 Telephone Adult Medicine [facility] [address] [place] [phone] Fredrick Munoz PA [address] [place] [address] Medication Problem (HYDROmorphone (Dilaudid) 2 mg tablet [...] mgtablet What is the problem?: 2MG on alf backorder, only have 8mg tablets in stock, please send new script if appropriate Who is calling about the problem? : A pharmacist: Pharmacy: [facility] Pharmacist Name: x Pharmacy Is this a NEW medication?: no How long has the patient been taking this medication? NA Who prescribed this medication for the patient? NA Who is patients PCP?: Millicent Chapa MD Payor: [facility] / Plan: [facility] PPO / Product Type: *No Product type* / documented in this encounter Plan of Treatment Upcoming Encounters Date Type Department Care Team (Late st Contact Info) Description 08/17/2024 9:30 AM EDT Office Visit Adult [facility] [address] [place] [phone] Fredrick Munoz PA [address] [place] [address] 09/27/2024 8:30 AM EDT Office Visit [facility] [address] [place] [address] Millicent Chapa MD [address] [place] [address] documented as of this encounter Visit Diagnoses Not on filedocumented in this encounter Care Teams Assistant Director Of Nursing Relationship Specialty Start Date End Date Millicent Chapa MD [address] [place] [address] PCP - General 07/21/06 documented as of this encounter
[2024-08-11 17:30] LABS: Alkaline Phosphatase 56 U/L (39-117)
== END 2024-08-11 13:26 | disposition home or self-care (01) ==
LOC: HO.LNP 13:25
PROVIDERS: Visit Provider Internal Medicine
DX: M81.0 Age-related osteoporosis without current pathological fracture (principal); M76.60 Achilles tendinitis, unspecified leg; Z13.1 Encounter for screening for diabetes mellitus
CPT/HCPCS: 80053; 82306; 83036; 85025; 85652

== ENCOUNTER 2024-08-18 10:41 | Outpatient (AMB) | payer BC, SELFPAY ==
--- NOTE | 2024-08-18 10:44 | A.OFFVIS_ITS ---
Intake Visit Reasons: OV, EMG review per Dr. Youssef Intake Note: Ruby is a 63 year old female who presents today with her finished yarn examiner Rach for a EMG review of her lateral popliteal nerve. Patient reports she is doing okay today. Allergies gluten [Gluten] Allergy (Severe, Verified 08/18/24 11:02) PT HAS CELIAC DISEASE Sulfa (Sulfonamide Antibiotics) Allergy (Severe, Verified 08/18/24 11:02) LUPUS-LIKE benztropine [Cogentin] Allergy (Intermediate, Verified 08/18/24 11:02) Rash ciprofloxacin [From Cipro] Allergy (Intermediate, Verified 08/18/24 11:02) TENDONOPATHY/NEUROPATHY shellfish derived Allergy (Intermediate, Verified 08/18/24 11:02) Hives promethazine Allergy (Unknown, Verified 08/18/24 11:02) Unknown nitrofurantoin [From Macrodantin] Adverse Reaction (Severe, Verified 08/18/24 11:02) Drug induced Hep Mandelamine Allergy (Intermediate, Uncoded 07/03/24 12:54) Drug induced Hep QUINOLONES Allergy (Intermediate, Uncoded 07/03/24 12:54) Unknown Medication List - Last Reconciled 08/18/24 by Mary Beth Munroe MD acetaminophen 650 mg (20.3 mL) PO Q4H PRN albuterol sulfate 90 mcg/actuation 2 puffs inhalation Q4-6H PRN diclofenac sodium 1% (Arthritis Pain (diclofenac)) 4 grams topical QID 30 days lorazepam (Ativan) 0.5 mg PO TID PRN ondansetron 4 mg PO Q8H PRN polyethylene glycol 3350 17 grams PO DAILY PRN pregabalin 25 mg PO TID 30 days HPI Comments Details: Reviewed all medical records available to me dating back to 2021. In 2021, started seeing Orthopedics Dr. Montes De Oca for left knee pain. She had a fall in 04/19/2021. Working diagnosis was infrapatellar bursitis. She was referred to pain management for possible RSD. Saw Janis once only. It was noted on notes, patient had bilateral lower leg pain and edema as early as 2021. She was seen by Dr. Enriquez 01/2023, with duplex not showing any significant vascular disease. And then December,, after a fall, sustained a nondisplaced left tibial plateau fracture. Treated nonsurgically. 2 weeks acute rehab [facility]. NWB for 4 months, with crutches and knee immobilizer. WBAT gradually beginning of March. Progress in PT, was walking with one crutch. Started steps this May, 3 1/2 weeks ago, 5 half steps, with rails. Then tried a few days, with one rail, leading with left, then left knee buckled. Sharp pain on left lateral knee. Then left knee was swollen. Went to ED. Repeat CT, no new fractures. New MRI left knee 06/02/2024 also done: 1. Horizontal tear in the lateral meniscus. 2. Findings in the lateral tibial plateau likely represent a mild stress fracture. She says the meniscus tear is old/chronic. In PT, they tried taping but that has affected her skin on the knee locally. Intermittently since fracture, left leg would swell. Noted more in the mornings but gets better when she's more active. She was concerned that ankles were swollen. Same time she had achiness of muscles in the upper body; and noted right knee slightly more tender. Was wearing compression socks. But even 2 days ago, she had swelling on left ankle and shoe did not fit. She even got new shoes and took off compression stockings. She's tried some achilles exercises. Taking ibuprofen 600-800mg BID-TID. ED 06/22 - BNP normal, US normal no DVT. She saw Dr. Burgess from Rheumatology: Patient at this time does not really meet criteria for any autoimmune connective tissue disease however she does have symptoms that could be related to an underlying connective tissue disease such as her photosensitivity, Raynaud's, sicca symptoms, history of 2nd trimester loss requiring aspirin for subsequent pregnancies and her worsening fatigue. I do not see any signs of inflammatory arthritis that would warrant a course of prednisone at this time. We will trial her on Plaquenil and see if this helps with her underlying joint stiffness and fatigue. I do think her joint issues are complicated by her recent tibial plateau fracture that was then further complicated by her aggravation of the injury in April. I explained to the patient that the Plaquenil is not going to help with the pain related to her mechanical issues. We will give her Celebrex as an anti-inflammatory to see if this will help with her joint pains so that she can continue with physical therapy. Patient did take either medications; continued Ibuprofen instead. She was concerned due to history of tendinopathy from cipro toxicity, 2009. Denies numbness. Denies foot drop unless swollen. Left ankle x-ray 06/29/2024 showed soft tissue swelling, diffuse osteopenia. She saw Rheumatology again, 06/30. Patient is a 63-year-old female who presents with worsening fatigue and polyarthralgias. Patient still does not meet criteria for any autoimmune disease and her ESR and CRP have always been equ ivocal. 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 Did not start Plaquenil due to concerns of its closeness to quinolones and she has a history of tendinopathy after levofloxacin use. I am hesitant to start this patient on steroids because I want to see that immunosuppression helps with her symptoms. I note that steroids will calm her inflammation but I do not know if her inflammation is from an underlying autoimmune cause at this time. We will stop the Plaquenil and start Methotrexate . Again note that patient never started Plaquenil. She has not started methotrexate and asking for my advice/opinion. Her last visit to ER was 07/03/2024. Again complaining of diffuse upper and lower pain. Doppler negative for DVT. D-dimer, CRP, ESR, LFTs, BNP, magnesium, white cell count were all normal. CPK 35 without signs of rhabdomyolysis. Patient noted to have bilateral swelling. Hemoglobin baseline 11.7. She was seen by Neurology 07/13/2024. They recommended not to take ibuprofen or NSAIDs. Try Lyrica 25 mg t.i.d.. More labs ordered. 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 No conduction block across fibular neck. No signs of lumbar radiculopathy. [facility] Medical History Methotrexate, nursing home, current use Undifferentiated connective tissue disease Rheumatoid factor positive Post-COVID chronic cough Neuropathy Asthma Diverticulosis Kidney stone Celiac sprue Surgical History H/O cystoscopy S/P cardiac cath (~07/2020) Hx of excision of mass (~1999) Family History (Reviewed 07/13/24 @ 08:13 by Chanda Dickerson [facility]) Mother Cervical cancer Uterine cancer History of thyroid disorder Maternal Grandmother Diabetes Stroke Maternal Grandfather Diabetes Coronary artery disease Paternal Grandmother Uterine cancer Diabetes Stroke Paternal Grandfather Stroke Father Bladder cancer Social History Household Members: Spouse Household Members Other:: Son Alcohol intake: current Alcohol intake frequency: does not drink Patient Tobacco Use Status: Never used Tobacco Advance Directives Date on File: 04/27/22 service: No 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 Good heel strike bilateral and equal. No footdrop observed. Using only walker, no wheelchair today. No palpable edema on either leg. No tenderness to touch on Achillis or malleoli. Left knees taped. Compression socks on both sides. Results Reviewed Results Reviewed: Reviewed results of CT and MRI left knee, ultrasound left leg, as above. Patient was sent for ankle x-rays and they were already read: Ordering Physician: Mary Beth Cartagena Date of Service: 06/29/24 Procedure(s): XR ankle LT 2V Accession Number(s): [id number] cc: Millicent Chapa MD; Mary Beth Cartagena~ EXAMINATION: XR ANKLE, LEFT CLINICAL INFORMATION: M25.571 - Pain in right ankle and joints of right foot COMPARISON: None available. TECHNIQUE: AP, lateral, and mortise views of the left ankle. FINDINGS: The ankle mortise and subtalar joints are normal. There is no visible acute fracture, dislocation or subluxation seen. The ankle mortise and subtalar joints are normal. There is diffuse osteopenia with lateral malleolar soft tissue swelling. XR/XR ankle LT 2V IMPRESSION: Lateral malleolar soft tissue swelling. No visible acute fracture or dislocation seen. Diffuse osteopenia Electronically signed by: Juan Caban MD 06/29/2024 12:40 PM [facility] Ordering Physician: Mary Beth Cartagena Date of Service: 06/29/24 Procedure(s): XR ankle RT 2V Accession Number(s): [id number] cc: Millicent Chapa MD; Mary Beth Colon EXAMINATION: XR ANKLE, RIGHT CLINICAL INFORMATION: M25.571 - Pain in right ankle and joints of right foot COMPARISON: None available. TECHNIQUE: AP, lateral, and mortise views of the right ankle. FINDINGS: Moderate lateral malleolar soft tissue swelling. The ankle mortise and subtalar joints are normal. No visible acute fracture, dislocation or subluxation seen XR/XR ankle RT 2V IMPRESSION: Moderate lateral malleolar soft tissue swelling. Electronically signed by: Juan Caban MD 06/29/2024 12:41 PM [facility] EMG: IMPRESSION: 1. This is an abnormal study. 2. 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 3. There is no electrodiagnostic evidence for tibial neuropathy. lumbosacral plexopathy, lumbar radiculopathy, or peripheral neuropathy. I reviewed records from the following: Ortho, Rheumatology Discussed case with Dr. Montes De Oca Assessment & Plan Assessment & Plan (1) Fracture of left tibial plateau: Code(s): S82.142A - Displaced bicondylar fracture of left tibia, initial encounter for closed fracture Category: Medical Qualifiers: Encounter type: sequela Fracture type: closed Qualified Code(s): S82.142S - Displaced bicondylar fracture of left tibia, sequela (2) Peroneal neuropathy: Code(s): G57.30 - Lesion of lateral popliteal nerve, unspecified lower limb Category: Medical Qualifiers: Laterality: left Qualified Code(s): G57.32 - Lesion of lateral popliteal nerve, left lower limb Plan I went over all records available to me in EMR, dating back to 2021. Noted that she's had complaints of left knee pain, and bilateral edema since 2021. Then she had the left tibial plateau fracture in 2023, recovery from it has been set back by edema on legs, pain and paresthesias on left ankle/leg/knee. EMG did show deep peroneal neuropathy which I suspect is from compression either from edema or other things such as compression stockings. Most important at this time is to break the vicious cycle of pain causing poor mobility and other complications. 1. Increased mobility would help with dependent edema. She has made progress in PT and ambulation. Continue. 2. Avoid further compression on ankle/peroneal nerve - again mobility to avoid edema, wear compression stockings only during day (not 24 hours, not at night), no NSAIDs 3. She is worried about her BUN going up. She should hydrate as much as possible. 4. Rheumatology suggested treating possible CTD. I reviewed their notes with patient. She has not started the MTX they recommended and I think she should. If there is underlying condition causing pain, swelling, inflammation, then it needs to be treated. We also talked about maximum dose of tylenol, 3000mg/day. Continue PT - order placed. Hydromorphone is prescribed by PCP. She is mindful not to take too much and we discussed avoidance of dependence. Diagnosis of CRPS has been considered, but as of today, I do not see signs of it. Assessment and plan discussed with patient, and patient was agreeable. All questions were answered thoroughly. We will follow along with patient's progress, follow up 1 month. Mary Beth Munroe MD, KACEY Board Certified, [place] Board of Physical Medicine and Rehabilitation (ABPMR) Board Certified, [place] Board of Electrodiagnostic Medicine (ABEM) Orders: Orders PT Evaluation and Treatment Today G57.32 - Lesion of lateral popliteal nerve, left lower limb, S82.142A - Displaced bicondylar fracture of left tibia, initial encounter for closed fracture Coding Level of Care Code Est Pt Level 4 (26003) Complex EM visit Add On G2211 Diagnoses Closed fracture of left tibial plateau, sequela S82.142S Encounter type: sequela Fracture type: closed Neuropathy of left peroneal nerve G57.32 Laterality: left
== END 2024-08-18 11:30 | disposition home or self-care (01) ==
PROVIDERS: PCP Internal Medicine; Visit Provider Physical Medicine & Rehabilitation
DX: S82.142S Displaced bicondylar fracture of left tibia, sequela (principal); G57.32 Lesion of lateral popliteal nerve, left lower limb
CPT/HCPCS: 99214

== ENCOUNTER 2024-09-04 13:09 | Outpatient (RCR) | payer BC, SELFPAY ==
--- NOTE | 2024-04-10 16:39 | MHC.PT.EP ---
[facility] [place] [facility] [place] [facility] [address] [phone] F: [phone] F: [phone] F: [phone] F: [phone] Physical Therapy Plan of Care Date of Evaluation: 04/07/24 Date of Surgery: Diagnosis: L tibial plateau fracture. Assessment: Pt is a 63 y/o female [employer] who is referred to PT for eval and treat of L tibial plateau fracture 01/18/24 after fall on B knees her condition is resulting in decreased ability and tolerance for standing and walking, negotiating stairs and curbs, performing fitness and recreation activities, squatting, and performing heavy HH chores secondary to decreased L knee ROM, B hip strength, L tibial plateau fracture with NWB status healing process, in creased L LE tissue tension and pain. Pt is deemed an appropriate candidate to receive skilled PT services to address their physical impairments in order to improve their functional ability. Frequency and Duration: The patient will be seen 2 x / wk x 10 wks. Short Term Goals: Initiate home Program. Pt will progress to WBAT Pt will achieve at least 120 degrees of L knee flexion. Electrolysist Goals: I with home program. Pt will be able to walk 2 bloks with managed Sx; initial: Non weight bearing at this time. Pt will be able to negotiate a flight of stairs with managed Sx; initial: Pt is not performing stairs at this time. Improve LEFI outcome by at least 10 points. Treatment Plan: Modalities to reduce pain, spasms and effusion. Manual therapy to restore motion and function. Therapeutic exercise to improve strength and flexibility. Neuromuscular re-education for posture and balance. Therapeutic activities to return to functional activities of daily living. Electronically signed by: Kory Miller PT. Please sign and return to therapist. Thank you for your referral.
--- NOTE | 2024-09-04 16:26 | MHC.PT.DC ---
[facility] [place] Office [place] Office [place] Office [address] Tyra Betancourt [address] [phone] F: [phone] F: [phone] F: [phone] F: [phone] Physical Therapy Discharge Report Diagnosis: L tibial plateau fracture. Date of Surgery: Date of Evaluation: 04/07/24 Date of Discharge: 09/04/24 Treatments to Date: 35 Cancellations to Date: No Shows to Date: Discharge Status: Improved Function Independent with HEP Discharge Summary: Pt has been an active and motivated participant in her therapy in and out of the clinic. She has met most of her therapeutic goals however she had not progressed to walking independently without a device nor ambulating stairs; this is largely d/t fear avoidance behaviors and continued knee and foot pain as well as perseverance over her condition despite extended PT with gradual return to function; her least restricted device at this time is 4WW which has encouraged increased independence and weight bearing without the fear of falling. Pt has ramps, stair lift and accessible bathroom she has been full weight bearing and ambulatory in 4WW where she was not weight bearing prior to therapy. She is I with her home program and is encouraged to increase her participation in HH chores and community with 4WW to promote increased comfort of walking. Electronically signed by: Kory Miller PT. Please sign and return to therapist. Thank you for your referral.
== END 2024-09-04 16:26 | disposition home or self-care (01) ==
LOC: HO.PT 13:09
PROVIDERS: PCP Internal Medicine; Visit Provider Orthopaedic Surgery
DX: S82.142D Displaced bicondylar fracture of left tibia, subsequent encounter for closed fracture with routine healing (principal)
CPT/HCPCS: 97110; 97112; 97116; 97140; 97161; 97530

== ENCOUNTER 2024-09-07 23:00 | Emergency (ER) | payer BC, SELFPAY ==
--- NOTE | ~2024-09-07 | XR_ITS ---
CLINICAL HISTORY: pain 4 view left knee Comparison: MR/WI - MR KNEE LT WO CON - 06/02/24 20:[address]/SR - CT KNEE LT WO IV CON - 05/29/24 16:44 EST CR/SR - XR KNEE LT 3V - 05/29/24 15:02 EST Findings: Osteopenia. No acute fracture or dislocation. No joint effusion. No radiopaque foreign body. IMPRESSION: 1. No acute osseous injury. This document has been electronically signed by: Ioana Villalpando MD on 09/08/2024 00:18:38
[2024-09-07 23:02] VITALS: BP 132/66; PULSE 87; RESP 18; TEMP 36.4; O2SAT 100; BMI 18.6
--- OUTSIDE RECORDS SUMMARY | 2024-09-08 03:56 | XMS_ITS | Encounter Summary ---
Author Organization [facility] Address [address] [place] [address] Care Team Providers Care First Beater Name Role Phone Mariam Chapa MD Primary Care Provider [phone] Reason for Referral * EXTERNAL (Routine) - Authorized/Booked Specialty Diagnoses / Procedures Referred By Conted arroyo Referred To Contact Physical Therapy Procedures REFERRAL TO PHYSICAL THERAPY Mariam Chapa MD [address], [place] Danitza Luis [address] [place] [address] Referral ID Status Reason Start Date Expiration Date V isits Requested Visits Authorized ORDER FAXED 12/28/16 Authorized/ Booked 12/28/2016 03/30/2017 1 1 Reason for Visit * Reason Onset Date Comments Valve Liner Rubber Feedback 12/28/2016 Dr Danitza Rivera ey Encounter Details Date Type Department Care Team Description 12/28/2016 Telephone Adult Medicine - [place] [address] [place] [address] Mariam Chapa MD [address], [place] Valve Liner Rubber Feedback (Dr Danitza Luis ) Social History Tobacco Use Types Packs/Day [...] Telephone Encounter - Mariam Chapa MD - 12/28/2016 1:29 PM EDT Thanks order signed * Telephone Encounter - Caridad Bryant - 12/28/2016 1:23 PM EDT Please review this patients new referral request. The referral has been pended. Please complete thefollowing: If approved> sign order If denied>please give instructions and route to your practice nursing pool. Practice nurse should inform referrals and the patient if denied. Thank you, Caridad Pass Worker * Telephone Encounter - Leonard Luke - 12/28/2016 10:43 AM EDT What insurance does the patient have today? BCBS Effective 02/28/09: BCBS will not retro referral requests over 90 days. If request is for this please instruct patient to call the 800# on their insurance card to appeal. Do not submit a request. Referrals cannot be processed if the insurance is not accurate. If the insurance listed above in red is NO BILLING INFORMATION FOUND FOR THIS ENCOUTNER The patients correct insurance must be obtained and registered in [facility] or their referral can not be processed. Is this a retro request? NO. If yes for what date of service do you need the retro referral? N/A Who is calling to request this referral? the patient If the caller is not the patient, what is their name? N/A Ask the patient WHO referred them to this specialty: Patient self referred FIRST and LAST NAME of SPECIALIST PATIENT is seeing: Dr Danitza Luis What specialty is this? OBGYN DIAGNOSIS Patient is being seen for (Not a body part or a procedure): Pelvic Physical Floor Therapy- [place] Angela Have you seen this SPECIALIST for this PROBLEM/DX before?NO If YES, when:N/A Have you checked REVIEW or the APPT DESK to see if this referral has already been done or has visits left? YES Is this visit:Initial Visit Address of Specialist:[address] [place] [address] Phone # of Specialist:[phone] Fax #: (if applicable):[phone] Does patient have an appointment scheduled?: YES Date of appointment- (including a retro-request):12/29/16 Is this appointment related to: Not MVA, WC or Surgery related Danitza Nicole [phone] documented in this encounter Plan of Treatment Not on file documented as of this encounter Visit Diagnoses Not on filedocumented in this encounter Care Teams First Beater Relationship Specialty Start Date End Date Mariam Chapa MD [address] [place] [address] PCP - General 07/21/06 documented as of this encounter
--- OUTSIDE RECORDS SUMMARY | 2024-09-08 03:56 | XMS_ITS | Encounter Summary ---
Author Organization [facility] Address [address] [place] [address] Care Team Providers Care Segment Block Layer Name Role Phone Mariam Chapa MD Primary Care Provider [phone] Reason for Visit * Reason Onset Date Comments other 05/05/2022 Encounter Details Date Type Department Care Team Description 05/05/2022 Telephone Adult Medicine - [place] [address] [place] [address] Mariam Chapa MD [address] [place] [address] other Social History Tobacco Use Types Packs/Day [...] for referral to Pt (see previous msg))to [facility] On small dose lyrica 25 mg [...] as well to [facility] in [place] fax order there post covid and neuropthy [...] > asking to order Physical Therapy to [facility] ([address] [address]) > asking to order a referral to [...] on filedocumented in this encounter Care Teams Segment Block Layer Relationship Specialty Start Date End Date Mariam Chapa MD [address] [place] [address] PCP - General 07/21/06 documented as of this encounter
--- OUTSIDE RECORDS SUMMARY | 2024-09-08 03:56 | XMS_ITS | Encounter Summary ---
Author Organization [facility] Address [address] [place] [address] Care Team Providers Care Occupational Health Coordinator Name Role Phone Mariam Chapa MD Primary Care Provider [phone] Encounter Details Date Type Department Care Team Description 07/22/2015 Ethanol Operator Report Medical Records [address] [place] [address] [facility] Medical Social History Tobacco Use Types Packs/Day [...] on filedocumented in this encounter Care Teams Occupational Health Coordinator Relationship Specialty Start Date End Date Mariam Chapa, [address] [place] [address] PCP - General 07/21/06 documented as of this encounter
--- OUTSIDE RECORDS SUMMARY | 2024-09-08 03:56 | XMS_ITS | Encounter Summary ---
Author Organization [facility] Address [address] [place] [address] Care Team Providers Care Skill Labor Name Role Phone Mariam Chapa MD Primary Care Provider [phone] Reason for Visit * Reason Onset Date Comments other 10/23/2016 Encounter Details Date Type Department Care Team Description 10/23/2016 Telephone [place] [address] Isak Sanchez MD other Social History Tobacco [...] Telephone Encounter - Mariam Chapa MD - 10/23/2016 2:28 PM EDT stuartay * Telephone Encounter - Rosemary Deng - 10/23/2016 2:26 PM EDT Per patient she does not want to go to a parts counter salesperson and said she already spoke to you about this. documented in this encounter Plan of Treatment Not on file documented as of this encounter Visit Diagnoses Not on filedocumented in this encounter Care Teams Skill Labor Relationship Specialty Start Date End Date Mariam Chapa, [address] [place] [address] PCP - General 07/21/06 documented as of this encounter
--- OUTSIDE RECORDS SUMMARY | 2024-09-08 03:56 | XMS_ITS | Encounter Summary ---
Author Organization [facility] Address [address] [place] [address] Care Team Providers Care Web Programmer Name Role Phone Millicent Chapa MD Primary Care Prov ider Reason for Visit * Reason Onset Date Comments Medication Problem 08/28/2024 HYDROmorphone (Dilaudid) 2 mg tablet Encounter Details Date Type Department Care Team (Late st Contact Info) Description 08/28/2024 Telephone Adult Medicine [facility] [address] [place] [address] Fredrick Munoz PA [address] [place] [address] Medication Problem (HYDROmorphone (Dilaudid) 2 mg tablet) Social History Tobacco Use Types Packs/Day Years Used Date Smoking Tobacco: Never Smokeless Tobacco: Never Alcohol Use Standard Drinks/Week Comments No 0 (1 standard drink = 0.6 oz pur e alcohol) Comments No Sex and Gender Information Value Date Recorded Sex Assigned at Female 08/22/2024 4:58 PM EDT Legal Sex Female 10:51 AM EST Gender Identity Female 08/22/2024 4:58 PM EDT Sexual Orientation Straight 08/22/2024 4: 58 PM EDT documented as of this encounter Progress Notes * Maggi Richard LPN - 08/29/2024 9:58 AM EDT Old message patient received this through [employer] * Carolina Day - 08/28/2024 2:36 PM EDT Medication Problem: What is the name of the medication patient is having a problem with?: HYDROmorphone (Dilaudid) 2 mgtablet What is the problem?: 2MG is on backorder and not available at the [facility] selected, please send alternative per fax Who is calling about the problem? : A pharmacist: Pharmacy: [facility] Pharmacist Name: x Pharmacy Is this a NEW medication?: no How long has the patient been taking this medication? NA Who prescribed this medication for the patient? Dr. Cruz Who is patients PCP?: Millicent Chapa MD Payor: GUNNAR Caputo [place] / Plan: [facility] PPO / Product Type: *No Product type* / documented in this encounter Plan of Treatment Upcoming Encounters Date Type Department Care Team (Late st Contact Info) Description 09/27/2024 8:30 AM EDT Office Visit Adult Medicine - [place] [address] [place] [address] Millicent Chapa MD [address] [place] [address] documented as of this encounter Visit Diagnoses Not on filedocumented in this encounter Care Teams Web Programmer Relationship Specialty Start Date End Date Millicent Chapa MD [address] [place] [address] PCP - General 07/21/06 documented as of this encounter
--- OUTSIDE RECORDS SUMMARY | 2024-09-08 03:56 | XMS_ITS | Encounter Summary ---
Author Organization [facility] Address [address] [place] [address] Care Team Providers Care Guard Immigration Name Role Phone Mariam Chapa MD Primary Care Provider [phone] Encounter Details Date Type Department Care Team Description 05/17/2012 Mock Up Assembler Report Medical Records [address] [place] [address] Social History Tobacco Use Types Packs/Day Years [...] on filedocumented in this encounter Care Teams Guard Immigration Relationship Specialty Start Date End Date Mariam Chapa MD [address] [place] [address] PCP - General 07/21/06 documented as of this encounter
--- OUTSIDE RECORDS SUMMARY | 2024-09-08 03:56 | XMS_ITS | Encounter Summary ---
Author Organization [facility] Address [address] [place] [address] Care Team Providers Care Photographic Process Screen Maker Name Role Phone Mariam Chapa MD Primary Care Provider +1 -[phone] Encounter Details Date Type Department Care Team Description 06/08/2022 [place] Customs And Border Officer Report Medical Records [address] [place] [address] Isak Sanchez MD Social History Tobacco Use [...] suspected to have Coronavirus/COVID-19? No / Unsure 05/28/2022 9:24 AM EST documented as of this encounter Plan of Treatment Not on file documented as of this encounter Visit Diagnoses Not on filedocumented in this encounter Care Teams Photographic Process Screen Maker Relationship Specialty Start Date End Date Mariam Chapa MD [address] [place] [address] PCP - General 07/21/06 documented as of this encounter
--- OUTSIDE RECORDS SUMMARY | 2024-09-08 03:56 | XMS_ITS | Encounter Summary ---
Author Organization [facility] Address [address] [place] [address] Care Team Providers Care Blood Splatter Analyst Name Role Phone Mariam Chapa MD Primary Care Provider +1 -[phone] Reason for Visit * Reason Onset Date Comments Medication 06/27/2016 Encounter Details Date Type Department Care Team Description 06/27/2016 Telephone Adult Urgent Care - [address] [address] Mariam Chapa, [address] [place] [address] Medication Social History Tobacco Use Types Packs/Day [...] on filedocumented in this encounter Care Teams Blood Splatter Analyst Relationship Specialty Start Date End Date Mariam Chapa MD [address] [place] [address] PCP - General 07/21/06 documented as of this encounter
--- OUTSIDE RECORDS SUMMARY | 2024-09-08 03:56 | XMS_ITS | Encounter Summary ---
Author Organization [facility] Address [address] [place] [address] Care Team Providers Care Claim Inspector Name Role Phone Mariam Chapa MD Primary Care Provider +1 -[phone] Encounter Details Date Type Department Care Team Description 02/16/2011 Night Triage Doc Medical Records [address] [place] [address] Abstract, Provider Social History Tobacco Use Types [...] on filedocumented in this encounter Care Teams Claim Inspector Relationship Specialty Start Date End Date Mariam Chapa, [address] [place] [address] PCP - General 07/21/06 documented as of this encounter
--- OUTSIDE RECORDS SUMMARY | 2024-09-08 03:56 | XMS_ITS | Encounter Summary ---
Author Organization [facility] Address [address] [place] [address] Care Team Providers Care Construction Safety Consultant Name Role Phone Mariam Chapa MD Primary Care Provider +1 [phone] Reason for Visit * Reason Onset Date Comments DME Request 05/01/2022 Encounter Details Date Type Department Care Team Description 05/01/2022 Telephone Adult Medicine - [place] [address] [place] [address] Mariam Chapa MD [address] [place] [address] DME Request Social History Tobacco Use Types Packs/Day [...] encounter Miscellaneous Notes * Telephone Encounter - Tori Guevara M.A. - 05/04/2022 9:01 AM EST Faxed Raised toilet seat and 4 pro cane (Will fax rx's now and the notes when you have time to do them) This will give them something to work with. Faxed to [facility] @[phone] * Telephone Encounter - Tori Guevara M.A. - 05/01/2022 4:32 PM EST Raised toilet seat and 4 pro cane Add to notes Thank you in advance * Telephone Encounter - Gloria Pal - 05/01/2022 3:50 PM EST Name of Product: Raised toilet seat with handles Specific information about product raised toilet seat with handles # Needed 1 Reason patient is asking for this supply? Patient states she is unable to bend knees Have you received this supply before? If yes , when?: no Have you discussed the need for this supply with a provider at a recent visit? NO If yes, with who and when? N/A When completed: Fax to other office/MD at fax # [phone] Have you told the patient it will take 7-10 days for completion of this request? YES Name of Product: Right hand 4 prong cane Specific information about product right hand 4 prong cane # Needed 1 Reason patient is asking for this supply? Mobility issues Have you received this supply before? If yes , when?: no Have you discussed the need for this supply with a provider at a recent visit? NO If yes, with who and when? N/A When completed: Fax to other office/MD at fax # [phone] Have you told the patient it will take 7-10 days for completion of this request? YES documented in this encounter Plan of Treatment Not on file documented as of this encounter Procedures Procedure Name Priority Date/Time Associated Diagnosis Comments TOILET SEAT RAISED Routine 05/01/2022 4:31 PM EST Muscle weakness (generalized) Diverticulosis Polymyalgia (HCC) Systemic lupus erythematosus, unspecified SLE type, unspecified organ involvement status (HCC) WALKER 4 PRONGED/WITH TIPS Routine 05/01/2022 4:31 PM EST Muscle weakness (generalized) Diverticulosis Polymyalgia (HCC) Systemic lupus erythematosus, unspecified SLE type, unspecified organ involvement status (HCC) documented in this encounter Visit Diagnoses Diagnosis Muscle weakness (generalized)- Primary Diverticulosis Diverticulosis of colon (without mention of hemorrhage) Polymyalgia (HCC) Polymyalgia rheumatica Systemic lupus erythematosus, unspecified SLE type, unspecified organ involvement status (HCC) documented in this encounter Care Teams Construction Safety Consultant Relationship Specialty Start Date End Date Mariam Chapa MD [address] [place] [address] PCP - General 07/21/06 documented as of this encounter
--- OUTSIDE RECORDS SUMMARY | 2024-09-08 03:56 | XMS_ITS | Encounter Summary ---
Author Organization [facility] Address [address] [place] [address] Care Team Providers Care Cable Rigger Name Role Phone Mariam Chapa MD Primary Care Provider [phone] [phone] Reason for Visit * Reason Onset Date Comments Letter 08/28/2022 Encounter Details Date Type Department Care Team Description 08/28/2022 Telephone Adult Medicine - [place] [address] [place] [address] Mariam Chapa, [address] [place] [address] Letter Social History Tobacco Use Types Packs/Day [...] suspected to have Coronavirus/COVID-19? No / Unsure 08/25/2022 8:30 AM EDT documented as of this encounter Miscellaneous Notes * Telephone Encounter - Arnold Ramsey - 08/28/2022 4:32 PM EDT Patient called regarding a clarification on the letter that she received on 08/25/2022. This is to certify that Ruby RickaniyaTiny is currently under my medical supervision. On 04/29/2021 patient fell at work injuring her left knee. unfortunately with multiple ortho visits and therapy she has now developed complex regional pain syndrome . She is on medications for the neuropathy .she has significant leg pain involving the medial aspect of her left knee.and decreased range of motion with some contracture with the knee muscle .this is not related to her COVID. She has done well with a compounded cream ordered by the orthopedics and she will need physical therapy to help with her complex regional pain syndrome. ?? documented in this encounter Plan of Treatment Not on file documented as of this encounter Visit Diagnoses Not on filedocumented in this encounter Care Teams Cable Rigger Relationship Specialty Start Date End Date Mariam Chapa MD [address] [place] [address] PCP - General 07/21/06 documented as of this encounter
--- OUTSIDE RECORDS SUMMARY | 2024-09-08 03:56 | XMS_ITS | Encounter Summary ---
Author Organization [facility] Address [address] [place] [address] Care Team Providers Care Reinforced Ironworker Name Role Phone Mariam Chapa MD Primary Care Provider [phone] -[phone] Reason for Visit * Reason Comments E-prescribe Rx Request Encounter Details Date Type Department Care Team Description 02/08/2013 Refill Adult Medicine - [place] [address] [place] [address] Mariam Chapa, [address] [place] [address] E-prescribe Rx Request Social History Tobacco Use [...] is: Payor: BIN/FRANNIE POS Plan: POS $15 [employer] [id number] Product Type: POS [id number] documented in this encounter Plan of Treatment Not on file documented as of this encounter Visit Diagnoses Not on filedocumented in this encounter Care Teams Reinforced Ironworker Relationship Specialty Start Date End Date Mariam Chapa, [address] [place] [address] PCP - General 07/21/06 documented as of this encounter
--- OUTSIDE RECORDS SUMMARY | 2024-09-08 03:56 | XMS_ITS | Encounter Summary ---
Author Organization [facility] Address [address] [place] [address] Care Team Providers Care Cpr Ambulance Driver Name Role Phone Mariam Chapa MD Primary Care Provider [phone] [phone] Reason for Visit * Reason Onset Date Comments infectious disease 04/13/2022 Encounter Details Date Type Department Care Team Description 04/13/2022 Telephone Adult Medicine - [place] [address] [place] [address] Mariam Chapa, [address] [place] [address] infectious disease Social History Tobacco Use Types [...] on filedocumented in this encounter Care Teams Cpr Ambulance Driver Relationship Specialty Start Date End Date Mariam Chapa MD [address] [place] [address] PCP - General 07/21/06 documented as of this encounter
--- OUTSIDE RECORDS SUMMARY | 2024-09-08 03:56 | XMS_ITS | Encounter Summary ---
Author Organization [facility] Address [address] [place] [address] Care Team Providers Care Sap Bi Architect Name Role Phone Mariam Chapa MD Primary Care Provider +1 -[phone] Encounter Details Date Type Department Care Team Description 02/22/2015 Steel Die Printer Report Medical Records [address] [place] [address] King Portillo Social History Tobacco Use Types Packs/Day Years [...] on filedocumented in this encounter Care Teams Sap Bi Architect Relationship Specialty Start Date End Date Mariam Chapa, [address] [place] [address] PCP - General 07/21/06 documented as of this encounter
--- OUTSIDE RECORDS SUMMARY | 2024-09-08 03:56 | XMS_ITS | Encounter Summary ---
Author Organization [facility] Address [address] [place] [address] Care Team Providers Care Technical Marketing Engineer Name Role Phone Mariam Chapa MD Primary Care Provider +1 -[phone] Encounter Details Date Type Department Care Team Description 03/23/2011 Severity Of Illness Coordinator Report Medical Records [address] [place] [address] Vinnie Sprague Social History Tobacco Use Types [...] on filedocumented in this encounter Care Teams Technical Marketing Engineer Relationship Specialty Start Date End Date Mariam Chapa, [address] [place] [address] PCP - General 07/21/06 documented as of this encounter
--- OUTSIDE RECORDS SUMMARY | 2024-09-08 03:56 | XMS_ITS | Encounter Summary ---
Author Organization [facility] Address [address] [place] [address] Care Team Providers Care Private Wealth Advisor Name Role Phone Mariam Chapa MD Primary Care Provider +1 -[phone] Reason for Visit * Reason Onset Date Comments Prior Authorization 04/06/2022 MRI- Lower E xtremity Joint/Nonjoint Encounter Details Date Type Department Care Team Description 04/06/2022 Telephone Adult Medicine - [place] [address] [place] [address] Mariam Chapa MD [address] [place] [address] Prior Authorization (MRI- Lower Extremity Joint/Nonjoint) Social [...] conduct a Peer to Peer by calling [phone]. Ref case# [id number] Thank You Neela Villegas Auth Dept P: [phone] documented in this encounter Plan of Treatment Not on file documented as of this encounter Visit Diagnoses Not on filedocumented in this encounter Care Teams Private Wealth Advisor Relationship Specialty Start Date End Date Mariam Chapa MD [address] [place] [address] PCP - General 07/21/06 documented as of this encounter
--- OUTSIDE RECORDS SUMMARY | 2024-09-08 03:56 | XMS_ITS | Encounter Summary ---
Author Organization [facility] Address [address] [place] [address] Care Team Providers Care Nurse Special Name Role Phone Mariam Chapa MD Primary Care Provider [phone] -[phone] Reason for Visit * Reason Onset Date Comments Letter 05/14/2022 Provider Call Back 05/14/2022 Encounter Details Date Type Department Care Team Description 05/14/2022 Telephone Adult Medicine - [place] [address] [place] [address] Mariam Chapa MD [address] [place] [address] Letter; Provider Call Back Social History Tobacco [...] - 05/15/2022 3:58 PM EST Faxed to [facility] with success and copy mailled [...] 05/15/2022 10:30 AM EST Patient called stating [facility] [employer] [facility] did receive a letter for her, but they need to knowhow many hours a day patient can work. 4 hrs a day for 5 days; or 5 hrs a day for 4 days or any other amount. Please review and call * Telephone Encounter - Camilla Nolan M.A. - 05/14/2022 3:44 PM EST Faxed letter to [facility] [employer] [facility] at [phone]. * Telephone Encounter - Amina Baez R.N. - 05/14/2022 10:54 AM EST Fax to [phone] [facility] [employer] [facility]. * Telephone Encounter - Mariam Chapa MD - 05/14/2022 10:30 AM EST Letter written and signed where is this to be faxed to ? please let Floor nurse know * Telephone Encounter - Raman Harley LPN - 05/14/2022 9:28 AM EST Pt wanted to be seen today but there is no appointments , pt states that she needs a letter faxed to Daric at [facility] or she will loose her job , [...] filedocumented in this encounter Care Teams Nurse Special Relationship Specialty Start Date End Date Mariam Chapa MD [facility] [place] [address] PCP - General 07/21/06 documented as of this encounter
--- OUTSIDE RECORDS SUMMARY | 2024-09-08 03:56 | XMS_ITS | Encounter Summary ---
Author Organization [facility] Address [address] [place] [address] Care Team Providers Care Hospital Secretary Name Role Phone Mariam Chapa MD Primary Care Provider +1 -[phone] Encounter Details Date Type Department Care Team Description 08/12/2022 Telephone Adult Medicine - [place] [address] [place] [address] Fredrick Munoz PA-C [address] [place] [address] Social History Tobacco Use Types Packs/Day Years [...] on filedocumented in this encounter Care Teams Hospital Secretary Relationship Specialty Start Date End Date Mariam Chapa MD [address] [place] [address] PCP - General 07/21/06 documented as of this encounter
--- OUTSIDE RECORDS SUMMARY | 2024-09-08 03:56 | XMS_ITS | Encounter Summary ---
Author Organization [facility] Address [address] [place] [address] Care Team Providers Care Route Specialist Name Role Phone Mariam Chapa MD Primary Care Provider +1 -[phone] Encounter Details Date Type Department Care Team Description 04/28/2022 Orders Only Adult Medicine - [place] [address] [place] [address] Mariam Chapa MD [address] [place] [address] Numbness and tingling of both legs (Primary Dx) Social History Tobacco Use Types [...] Type Priority Associated Diagnoses Orde r Schedule EMG INTERNAL/EXTERNAL EMG Routine Numbness and tingling of both legs Expected: 04/29/2022, Expires: 04/28/2023 documented as of this encounter Visit Diagnoses Diagnosis Numbness and tingling of both legs- Primary Disturbance of skin sensation documented in this encounter Care Teams Route Specialist Relationship Specialty Start Date End Date Mariam Chapa MD [address] [facility] [place] [address] PCP - General 07/21/06 documented as of this encounter
--- OUTSIDE RECORDS SUMMARY | 2024-09-08 03:56 | XMS_ITS | Encounter Summary ---
Author Organization [facility] Address [address] [place] [address] Care Team Providers Care Plastic Sheets Supervisor Name Role Phone Mariam Chapa MD Primary Care Provider +1 -[phone] Reason for Visit * Reason Onset Date Comments LAB WORK 12/04/2021 Encounter Details Date Type Department Care Team Description 12/04/2021 Telephone Adult Medicine - [place] [address] [place] [address] Mariam Chapa, [address] [place] [address] LAB WORK Social History Tobacco Use Types Packs/Day Years [...] suspected to have Coronavirus/COVID-19? No / Unsure 12/02/2021 2:20 PM EDT documented as of this encounter Miscellaneous Notes * Telephone Encounter - Vilma Jasso M.A. - 12/05/2021 10:43 AM EDT Letter sent to patient * Telephone Encounter - Arnold Ramsey - 12/04/2021 4:39 PM EDT Inform patient: ANY URGENT OR ABNORMAL RESULTS WIILL RESULT IN A CALL BACK TO THE PATIENT EDUIN. Type of test: :lab Date test was performed: 12/02/2021 Where was the test performed: [email or web address] Who ordered this test?: Is the doctor here today?: Can the message wait until the doctor returns?: NO IF PATIENT'S PCP IS NOT IN INSTRUCT PATIENT THAT THEY WILL RECEIVE A CALL BACK WHEN THE PCP IS IN THE OFFICE NEXT. documented in this encounter Plan of Treatment Not on file documented as of this encounter Visit Diagnoses Not on filedocumented in this encounter Care Teams Plastic Sheets Supervisor Relationship Specialty Start Date End Date Mariam Chapa MD [facility] [place] [address] PCP - General 07/21/06 documented as of this encounter
--- OUTSIDE RECORDS SUMMARY | 2024-09-08 03:56 | XMS_ITS | Encounter Summary ---
Author Organization [facility] Address [address] [place] [address] Care Team Providers Care Jowl Trimmer Name Role Phone Mariam Chapa MD Primary Care Provider +1 -[phone] Encounter Details Date Type Department Care Team Description 01/14/2011 Block Paver Report Medical Records [address] [place] [address] Social History Tobacco Use Types Packs/Day Years [...] on filedocumented in this encounter Care Teams Jowl Trimmer Relationship Specialty Start Date End Date Mariam Chapa MD [address] [place] [address] PCP - General 07/21/06 documented as of this encounter
--- OUTSIDE RECORDS SUMMARY | 2024-09-08 03:56 | XMS_ITS | Clinical Summary ---
Author Organization [facility]. Address [address] [address] Phone Care Team Providers Care Judicial Registrar Name Role Phone Millicent Chapa MD Primary Care Pr ovider Allergies Active Allergy Reactions Criticality Noted Date Comments Bee Venom Other (see comments),Swelling 04/11/2012 Benztropine Other (see comments) 05/30/2013 BLURRED VISION, BRADYCARDIA Bupivacaine Other (see comments) 05/30/2013 BILATERAL MOTOR/SENSORY LOSS LOWER EXTREMITIES S/P EPIDURAL BILATERAL MOTOR/SENSORY LOSS LOWER EXTREMITIES S/P EPIDURAL Ciprofloxacin-Hydrocortis one Rash Low 10/17/2009 Codeine Nausea 07/11/2024 Gluten Meal Other (see comments) 03/01/2010 MALABSORPTION Iodinated Contrast Media Other (see comments) 05/30/2013 THROAT NUMBNESS Methenamine Other (see comments) High 08/31/2009 Drug Induced Hepatitis Drug induced hep Drug Induced Hepatitis Nitrofurantoin Other (see comments) High 08/30/2009 Lupus-like rxn HEPATITIS Drug induced Hep Lupus-like rxn HEPATITIS Prochlorperazine Other (see comments) 08/30/2009 distonia Quinolones 08/12/2012 Periph neuropathy Shellfish-Derived Products 02/05/2006 Silver Other (see comments) 05/30/2013 Sulfa Antibiotics 02/05/2006 Trazodone Other (see comments) 08/30/2009 rash rash Medications albuterol HFA (PROVENTIL HFA;VENTOLIN HFA) 108 (90 Base) MCG/ACT inhaler Inhale 2 puffs every 4 (four) to 6 (six) hours if needed 2 Active ciclopirox (PENLAC) 8 % solution APPLY TO AFFECTED TOENAIL(S) EVERY DAY 5 Active HYDROmorphone (DILAUDID) 2 MG tablet 5 Active LORazepam (ATIVAN) 0.5 MG tablet TAKE 1 TABLET BY MOUTH 2 TIMES A DAY. MAX DAILY AMOUNT: 1 MG Active ondansetron ODT (ZOFRAN-ODT) 4 MG dispersible tablet DISSOLVE 1 TABLET BY MOUTH EVERY 4 TO 6 HOURS NEEDED FOR NAUSEA Active acetaminophen (TYLENOL) 500 MG tablet Take 1,000 mg by mouth every 6 (six) hours if needed for mild pain Active celecoxib (CeleBREX) 200 MG capsule Take 200 mg by mouth 5 08/24/19 Discontinu ed(Alterna te therapy) clobetasol (TEMOVATE) 0.05 % ointment APPLY TOPICALLY TWICE DAILY FOR 10 DAYS 4 08/24/19 Discontinu ed(Alterna te therapy) folic acid (FOLVITE) 1 MG tablet Take 1,000 mcg by mouth 1 (one) time each day 5 08/24/19 Discontinu ed(Alterna te therapy) methotrexate 2.5 MG tablet TAKE A TOTAL OF 15 MG (6 TABLETS) BY MOUTH EVERY WEEK FOR 90 DAYS 5 08/24/19 Discontinu ed(Alterna te therapy) naproxen (NAPROSYN) 500 MG tablet TAKE 1 TABLET ORALLY EVERY 12 HOURS NEEDED FOR PAIN (SCALE SCORE 1-3) 4 08/24/19 Discontinu ed(Alterna te therapy) nitroglycerin (NITROSTAT) 0.[address] 1 TABLET UNDER TONGUE EVERY 5 MIN NEEDED FOR CHEST PAIN, MAX OF 3 DOSES/15 MIN CALL 911/SEEK MEDICAL ATTENTION IF PAIN PERSISTS 5 08/24/19 Discontinu ed(Alterna te therapy) predniSONE (DELTASONE) 1 MG tablet Take 1 mg by mouth 1 (one) time each day 5 08/24/19 25 Discontinu ed(Alterna te therapy) pregabalin (LYRICA) 25 MG capsule TAKE 1 CAPSULE (25 MG TOTAL) BY MOUTH 1 TIME EACH DAY. MAX DAILY AMOUNT: 25 MG 08/24/19 Discontinu ed(Alterna te therapy) Active Problems Problem Noted Date Diagnosed Date Polyneuropathy in diseases classified elsewhere 08/23/2024 Edema 08/22/2024 Shoulder pain 02/05/2014 Overview (08/22/2024): Shoulder pain Disorder of rotator cuff 06/15/2013 Overview (08/22/2024): Rotator cuff syndrome Resolved Problems Problem Noted Date Diagnosed Date Resolved Date Other asthma 08/22/2024 08/23/2024 Encounters Date Type Department Care Team Description 08/29/2024 Orders Only [facility] [place] [id number] [facility] [address] [place] [phone] Brock Johnson MD Other asthma; Personal history of kidney stones 08/22/2024 2:15 PM EDT Office Visit [facility] [place] [address] [facility] [address] [place] [phone] Brock Johnson MD Edema, not otherwise specified (Primary Dx); Other asthma from Last 3 Months Immunizations Immunization Administration Dates Next Due Influenza, MDCK, Quadrivalent, with preservative 04/14/2021 UR Mobile SARS-COV-2 03/27/2021 MMR 02/18/2017 MMRV 02/18/2017 PPD Test 03/17/2017,02/18/2010 Rubella 02/18/2017 Varicella 02/18/2017 Family History Medical History Relation Comments Cancer Father Cancer Maternal Grandfather Diabetes Maternal Grandfather Stroke Maternal Grandfather Stroke Maternal Grandmother Cancer Mother Relation Status Comments Father Maternal Grandfather Maternal Grandmother Mother Social History Tobacco Use Types Packs/Day Years Used Date Smoking Tobacco: Never Assessed Comments Unknown Sex and Gender Information Value Date Recorded Sex Assigned at Not on file Legal Sex Female 3:02 PM EDT Gender Identity Not on file Sexual Orientation Not on file Last Filed Vital Signs Vital Sign Reading Time Taken Comments Blood Pressure 119/59 08/22/2024 2:29 PM EDT Pulse 85 08/22/2024 2:29 PM EDT Temperature - - Respiratory Rate - - Oxygen Saturation 99% 08/22/2024 2:29 PM EDT Inhaled Oxygen Concentration - - Weight 45.4 kg (100 lb) 08/22/2024 2:29 PM EDT Height - - Body Mass Index - - Plan of Treatment Upcoming Encounters Date Type Department Care Team (Late st Contact Info) Description 10/06/2024 11:30 AM EDT Office Visit [facility] [address] [address] Brock Johnson MD [address] [phone] Health Maintenance Due Date Last Done Comments Breast Cancer Screening 1960 Pneumococcal Vaccine: Peds ( 0 to 5 Years) and At-Risk Patients (6 to 49 Years) (1 of 2 - PCV) 12/29/1965 Colorectal Cancer Screening: Annual FOBT 12/29/2008 Colorectal Cancer Screening: Colonoscopy 12/29/2008 Colorectal Cancer Screening: Sigmoidoscopy 12/29/2008 Influenza Vaccine (Season Ended) 2025 04/14/20 21 Hepatitis B Vaccine Aged Out No longe r eligible based on patient's age to complete this topic Procedures Procedure Name Priority Date/Time Associated Diagnosis Comments ALT EXT LABS Routine 08/11/2024 from Last 3 Months Results * (ABNORMAL) ALT EXT LABS (08/11/2024) WBC 3.8 3.3 - 10.0 10*3/ML Red Blood Cell Count 3.95 Hemoglobin 11.5(A) 12.0 - 16.0 Hematocrit 36.7 36.0 - 46.0 Platelets 249 150 - 399 10*3/UL BUN 30(A) 4 - 21 mg/dL Creatinine 0.56 0.50 - 1.10 mg/dL Calcium 9.8 8.7 - 10.7 mg/dL Sodium 142 137 - 147 Potassium 4.5 3.4 - 5.5 Chloride 106.0 99.0 - 108.0 eGFR Non-Afr Croatian 60 08/11/2024 us Historical Provider LAB BLOOD ORDERABLES Isabella l Result from Last [address] [facility] Care Teams Judicial Registrar Relationship Specialty Start Date End Date Millicent Chapa MD [address] [place] [address] PCP - General Internal Medicine 08/22/24
--- OUTSIDE RECORDS SUMMARY | 2024-09-08 03:56 | XMS_ITS | Encounter Summary ---
Author Organization [facility] Address [address] [place] [address] Care Team Providers Care Production Clerk Name Role Phone Mariam Chapa MD Primary Care Provider +1 [phone] Encounter Details Date Type Department Care Team Description 08/13/2014 PUBLIC HEALTH REPRESENTATIVE/[facility] Report Medical Records [address] [place] [address] Abstract, Provider Social History Tobacco Use Types [...] on filedocumented in this encounter Care Teams Production Clerk Relationship Specialty Start Date End Date Mariam Chapa, [address] [place] [address] PCP - General 07/21/06 documented as of this encounter
--- OUTSIDE RECORDS SUMMARY | 2024-09-08 03:56 | XMS_ITS | Encounter Summary ---
[facility] Address [address] [place] [address] Care Team Providers Care Back Shoe Operator Name Role Phone Mariam Chapa MD Primary Care Provider +1 [phone] Encounter Details Date Type Department Care Team Description 04/28/2022 Softball Winder Report Medical Records [address] [place] [address] Janis Mendieta NP Social History Tobacco Use Types Packs/Day [...] on filedocumented in this encounter Care Teams Back Shoe Operator Relationship Specialty Start Date End Date Mariam Chapa, [address] [place] [address] PCP - General 07/21/06 documented as of this encounter
--- OUTSIDE RECORDS SUMMARY | 2024-09-08 03:56 | XMS_ITS | Encounter Summary ---
Author Organization [facility] Address [address] [place] [address] Care Team Providers Care Contract Administration Coordinator Name Role Phone Mariam Chapa MD Primary Care Provider [phone] [phone] Encounter Details Date Type Department Care Team Description 02/11/2022 Orders Only Adult Medicine - [place] [address] [place] [address] Mariam Chapa MD [address] [place] [address] Social History Tobacco Use Types Packs/Day Years [...] on filedocumented in this encounter Care Teams Contract Administration Coordinator Relationship Specialty Start Date End Date Mariam Chapa MD [address] [place] [address] PCP - General 07/21/06 documented as of this encounter
--- OUTSIDE RECORDS SUMMARY | 2024-09-08 03:56 | XMS_ITS | Encounter Summary ---
Author Organization [facility] Address [address] [place] [address] Care Team Providers Care Clay Miner Name Role Phone Mariam Chapa MD Primary Care Provider [phone] [phone] Reason for Visit * Reason Onset Date Comments REFERRAL 08/31/2016 Encounter Details Date Type Department Care Team Description 08/31/2016 Telephone Rheumatology - [address] [address] Annie Paz MD REFERRAL Social History Tobacco [...] left hip(s) Priority: Next Available Payor: Not third-green party related Tried to contact patient several times by phone and sent letter to patient as well with no response, did remove patient from referral report documented in this encounter Plan of Treatment Not on file documented as of this encounter Visit Diagnoses Not on filedocumented in this encounter Care Teams Clay Miner Relationship Specialty Start Date End Date Mariam Chapa MD [address] [place] [address] [place] [address] PCP - General 07/21/06 documented as of this encounter
--- OUTSIDE RECORDS SUMMARY | 2024-09-08 03:56 | XMS_ITS | Encounter Summary ---
Author Organization [facility] Address [address] [place] [address] Care Team Providers Care Assistant Director Of Residence Life Name Role Phone Millicent Chapa MD Primary Care Prov ider Reason for Visit * Reason Onset Date Comments Fitting for DME 09/01/2024 Encounter Details Date Type Department Care Team ([facility] Contact Info) Description 09/01/2024 Telephone Adult Medicine - [place] [address] [place] [phone] Millicent Chapa MD [address] [place] [address] Fitting for DME Social History Tobacco Use Types Packs/Day Years [...] as of this encounter Progress Notes * Jessie Castillo - 09/01/2024 9:56 AM EDT Please refax DME request fro [facility] to [facility] , they never got the fax from 08/10/24 documented in this encounter Plan of Treatment Upcoming Encounters Date Type Department Care Team ([facility] st Contact Info) Description 09/27/2024 8:30 AM EDT Office Visit Adult Medicine - [place] [address] [place] [address] Millicent Chapa MD [address] [place] [address] documented as of this encounter Visit Diagnoses Not on filedocumented in this encounter Care Teams Assistant Director Of Residence Life Relationship Specialty Start Date End Date Millicent Chapa MD [address] [place] [address] PCP - General 07/21/06 documented as of this encounter
--- OUTSIDE RECORDS SUMMARY | 2024-09-08 03:56 | XMS_ITS | Encounter Summary ---
Author Organization [facility] Address [address] [place] [address] Care Team Providers Care Lead Pressman Roto Gravure Printing Name Role Phone Mariam Chapa MD Primary Care Provider [phone] [phone] Encounter Details Date Type Department Care Team Description 06/27/2016 [facility] Medical Records [address] [place] [address] Abstract, Provider Social History Tobacco Use Types [...] on filedocumented in this encounter Care Teams Lead Pressman [employer] Printing Relationship Specialty Start Date End Date Mariam Chapa, [address] [place] [address] PCP - General 07/21/06 documented as of this encounter
--- OUTSIDE RECORDS SUMMARY | 2024-09-08 03:56 | XMS_ITS | Encounter Summary ---
Author Organization [facility] Address [address] [place] [address] Care Team Providers Care First Leveler Name Role Phone Millicent Chapa MD Primary Care Prov ider Reason for Visit * Reason Onset Date Comments imaging 08/29/2024 Encounter Details Date Type Department Care Team (Late st Contact Info) Description 08/29/2024 Telephone Adult Medicine - [place] [address] [place] [phone] Millicent Chapa MD [address] [place] [address] imaging Social History Tobacco Use Types Packs/Day Years [...] Progress Notes * Margot Quezada MA - 08/30/2024 1:55 PM EDT Spoke to Roman at [facility] and pt canceled the appt so no clearance on diagnosis needed. * Gloria Castillo - 08/29/2024 10:51 AM EDT Spoke adam corleyjan from [facility] Patient is going in for a US Abdomen Complete but the diagnosis states leg swelling Please call her back at [phone] documented in this encounter Plan of Treatment Upcoming Encounters Date Type Department Care Team (Late st Contact Info) Description 09/27/2024 8:30 AM EDT Office Visit Adult Medicine [facility] [address] [place] [address] Millicent Chapa MD [address] [place] [address] documented as of this encounter Visit Diagnoses Not on filedocumented in this encounter Care Teams First Leveler Relationship Specialty Start Date End Date Millicent Chapa MD [address] [place] [address] PCP - General 07/21/06 documented as of this encounter
--- OUTSIDE RECORDS SUMMARY | 2024-09-08 03:56 | XMS_ITS | Encounter Summary ---
Author [facility] Address [address] [place] [address] Care Team Providers Care Quarry Equipment Operator Name Role Phone Mariam Chapa MD Primary Care Provider [phone] [phone] Encounter Details Date Type Department Care Team Description 05/12/2012 Night Triage Doc Medical Records [address] [place] [address] Abstract, Provider Social History Tobacco Use Types [...] on filedocumented in this encounter Care Teams Quarry Equipment Operator Relationship Specialty Start Date End Date Mariam Chapa, [address] [place] [address] PCP - General 07/21/06 documented as of this encounter
--- OUTSIDE RECORDS SUMMARY | 2024-09-08 03:56 | XMS_ITS | Encounter Summary ---
Author Organization [facility] Address [address] [place] [address] Care Team Providers Care Mathematics Instructor Name Role Phone Mariam Chapa MD Primary Care Provider [phone] [phone] Encounter Details Date Type Department Care Team Description 06/05/2016 Release of Information Medical Records [address] [place] [address] Abstract, Provider Social History Tobacco Use Types [...] on filedocumented in this encounter Care Teams Mathematics Instructor Relationship Specialty Start Date End Date Mariam Chapa MD [address] [place] [address] PCP - General 07/21/06 documented as of this encounter
--- OUTSIDE RECORDS SUMMARY | 2024-09-08 03:56 | XMS_ITS | Encounter Summary ---
[facility] Address [address] [place] [address] Care Team Providers Care Engineer/Conductor Name Role Phone Mariam Chapa MD Primary Care Provider +1 [phone] Encounter Details Date Type Department Care Team Description 04/22/2022 Story Analyst Report Medical Records [address] [place] [address] Isak Sanchez MD Social History Tobacco Use [...] on filedocumented in this encounter Care Teams Engineer/Conductor Relationship Specialty Start Date End Date Mariam Chapa MD [address] [place] [address] PCP - General 07/21/06 documented as of this encounter
--- OUTSIDE RECORDS SUMMARY | 2024-09-08 03:57 | XMS_ITS | Encounter Summary ---
[facility] Address [address] [place] [address] Care Team Providers Care Dredge Lever Operator Name Role Phone Mariam Chapa MD Primary Care Provider +1 [phone] Encounter Details Date Type Department Care Team Description 03/31/2010 Night Triage Doc Medical Records [address] [place] [address] Abstract, Provider Social History Tobacco Use Types [...] on filedocumented in this encounter Care Teams Dredge Lever Operator Relationship Specialty Start Date End Date Mariam Chapa, [address] [place] [address] PCP - General 07/21/06 documented as of this encounter
--- OUTSIDE RECORDS SUMMARY | 2024-09-08 03:57 | XMS_ITS | Encounter Summary ---
Author Organization [facility] Address [address] [place] [address] Care Team Providers Care Battery Charger Conveyor Line Name Role Phone Mariam Chapa MD Primary Care Provider +1 [phone] Encounter Details Date Type Department Care Team Description 01/30/2014 Surgical Garment Fitter Report Medical Records [address] [place] [address] Social History Tobacco Use Types Packs/Day Years [...] on filedocumented in this encounter Care Teams Battery Charger Conveyor Line Relationship Specialty Start Date End Date Mariam Chapa MD [address] [place] [address] PCP - General 07/21/06 documented as of this encounter
--- OUTSIDE RECORDS SUMMARY | 2024-09-08 03:57 | XMS_ITS | Encounter Summary ---
Author Organization [facility] Address [address] [place] [address] Care Team Providers Care Punch Card Operator Name Role Phone Mariam Chapa MD Primary Care Provider [phone] [phone] Reason for Visit * Reason Onset Date Comments Medication 03/02/2024 Encounter Details Date Type Department Care Team Description 03/02/2024 Telephone Adult Medicine - [place] [address] [place] [address] Mariam Chapa, [address] [place] [address] Medication Social History Tobacco Use Types Packs/Day [...] encounter Miscellaneous Notes * Telephone Encounter - Millicent Crandall M.A. - 03/06/2024 8:36 AM EDT Called patient to follow up . [facility] did contact patient on Wednesday and Jamie Montes De Oca MD gave her 15 tablets filled on 03/03/24. * Telephone Encounter - Millicent Crandall M.A. - 03/03/2024 9:12 AM EDT Spoke with patient. She has not been able to get a hold of [facility] ( Jamie Montes De Oca MD ) she has left muliple messages with associate technician and has not received any call backs. Tapered started Wednesday02/29/24 - 1 tablet ( 2 mg ) BID Wednesday03/01/24 - 1 tablet ( 2 mg ) BID 03/02/24 - 1/2 tab ( 1 mg ) in the AM and 1/2 tab ( 1 mg ) in the PM. Wednesday03/03/24 - Pt is only going to take 1/2 tab ( 1 mg ) in the AM and then 1/2 tab ( 1 mg ) in the PM. ( this is her last tablet ) Per [facility] , Pt received 15 tabs on 02/23/24 - pt states they only order a week at a time for controlled substance medications - Called [facility] , spoke with Sharan. States 2 messages were sent to Jamie Montes De Oca MD regarding pts medications. He is in office today and they will send another message. Ask for them to contactpt today as she is on her last tablet. * Telephone Encounter - Fredrick Munoz PA-C - 03/02/2024 5:36 PM EDT Please talk to the patient today and see if she has gotten a hold of surgery. They should really behandling her taper responsibly and it is difficult to get involved in this type of situation. Let me know what she has heard about and at best we can consider a few more days to help taper but the prescribing provider should be the one responsibly tapering her You should get more information about the duration of how she has been weaning herself as far as how many pills a day for how many days she has done this. Thank you * Telephone Encounter - Maggi Richard L.P.N. 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 but she is aware that usually the PCP office takes over pain management after surgery 02/23/2024 02/23/2024 02/24/2024 1 Hydromorphone 2 Mg Tablet 15 4 No Eps [id number] [facility] (2011) 0/0 37.50 [facility] Private Pay [place] 02/18/2024 02/18/2024 02/19/2024 1 Lorazepam 0.5 Mg Tablet 56 28 Mi Pillo [id number] [facility] (2011[facility] 0/2 1.00 [facility] Comm Ins [place] 02/10/2024 02/10/2024 02/10/2024 1 Hydromorphone 2 Mg Tablet 28 7 Mary Mal [id number] [facility] (2011) 0/0 40.00 MME Private Pay [place] 02/10/2024 02/10/2024 02/10/2024 1 Pregabalin 25 Mg Capsule 30 30 Mary Mal [id number] [facility] (2011) 0/0 0.17 [facility] [place] Ins [place] 01/28/2024 01/28/2024 01/28/2024 1 Hydromorphone 2 Mg Tablet 20 3 No Eps [id number] [facility] (2011) 0/0 66.67 [facility]ME Private [place] 01/19/2024 11/23/2023 01/19/2024 1 Lorazepam 0.5 Mg Tablet 56 28 Ch Hay [id number] [facility] (2011) 2/2 1.00 [facility] [place] 12/21/2023 11/23/2023 12/22/2023 1 Lorazepam 0.5 Mg Tablet 56 28 Ch Hay [id number] [facility] (2011) 1/2 1.00 [facility] [place] 11/23/2023 11/23/2023 11/24/2023 1 Lorazepam 0.5 Mg Tablet 56 28 Ch Hay [id number] [facility] (2011) 0/2 1.00 [place] [place] 10/26/2023 09/01/2023 10/27/2023 1 Lorazepam 0.5 Mg Tablet 56 28 Re Mor [id number] [facility] (2011) 2/2 1.00 [place] [place] 09/28/2023 09/01/2023 09/29/2023 1 Lorazepam 0.5 Mg Tablet 56 28 Re Mor [id number] [facility] (2011) 1/2 1.00 LME Comm Ins [place] 09/01/2023 09/01/2023 09/01/2023 1 Lorazepam 0.5 Mg Tablet 56 28 Re Mor [id number] [facility] (2011) 0/2 1.00 LME Comm Ins [place] 08/02/2023 06/09/2023 08/03/2023 1 Lorazepam 0.5 Mg Tablet 56 28 Ch Hay [id number] [facility] (2011) 2/2 1.00 [place] 07/06/2023 06/09/2023 07/08/2023 1 Lorazepam 0.5 Mg Tablet 56 28 Ch Hay [id number] [facility] (2011) 1/2 1.00 [place] 06/09/2023 06/09/2023 06/10/2023 1 Lorazepam 0.5 Mg Tablet 56 28 Ch Hay [id number] [facility] (2011) 0/2 1.00 [place] 05/12/2023 03/17/2023 05/14/2023 1 Lorazepam 0.5 Mg Tablet 56 28 Ch Hay [id number] [facility] (2011) 2/2 1.00 LME Comm Ins [place] Disclaimer * Telephone Encounter - Arnold Ramsey - 03/02/2024 1:38 PM EDT Who is calling? The patient Name of the medication HYDROmorphone (Dilaudid) 2 MG tablet What is the specific problem or interaction? Patient has been reducing dosage of medication. 2 mg two times daily. Patient has only two tablets left and she is afraid that she will have withdrawal symptoms. Patient is trying to avoid this. Patient is asking for a call back. Please call If the patient is having a problem with taking the med - how long has the problem been going on? N/A documented in this encounter Plan of Treatment Not on file documented as of this encounter Visit Diagnoses Not on filedocumented in this encounter Care Teams Punch Card Operator Relationship Specialty Start Date End Date Mariam Chapa MD [address] [place] [address] PCP - General 07/21/06 documented as of this encounter
--- OUTSIDE RECORDS SUMMARY | 2024-09-08 03:57 | XMS_ITS | Encounter Summary ---
Author Organization [facility] Address [address] [place] [address] Care Team Providers Care Firer Bisque Kiln Name Role Phone Mariam Chapa MD Primary Care Provider +1 -[phone] Encounter Details Date Type Department Care Team Description 03/17/2021 Telephone Adult Medicine - [place] [address] [place] [address] Felicia Alonzo NP Social History Tobacco Use Types Packs/Day [...] have Coronavirus / COVID-19? No / Unsure 03/20/2021 10:19 AM EDT documented as of this encounter Plan of Treatment Not on file documented as of this encounter Visit Diagnoses Not on filedocumented in this encounter Care Teams Firer Bisque Kiln Relationship Specialty Start Date End Date Mariam Chapa MD [address] [place] [address] PCP - General 07/21/06 documented as of this encounter
--- OUTSIDE RECORDS SUMMARY | 2024-09-08 03:57 | XMS_ITS | Encounter Summary ---
Author Organization [facility] Address [address] [place] [address] Care Team Providers Care Cream Hauler Name Role Phone Mariam Chapa MD Primary Care Provider +1 -[phone] Reason for Visit * Reason Onset Date Comments Medication 02/15/2014 Encounter Details Date Type Department Care Team Description 02/15/2014 Telephone Adult Medicine - [place] [address] [place] [address] Mariam Chapa MD [address] [place] [address] Medication Social History Tobacco Use Types Packs/Day [...] is now [facility] a [facility] * Telephone Encounter - Mariam Chapa MD [...] Payor: BIN/FRANNIE POS / Plan: PPO $15 [id number] / Product Type: PPO [id number] documented in this encounter Plan of Treatment Not on file documented as of this encounter Visit Diagnoses Not on filedocumented in this encounter Care Teams Cream Hauler Relationship Specialty Start Date End Date Mariam Chapa MD [address] [place] [address] PCP - General 07/21/06 documented as of this encounter
--- OUTSIDE RECORDS SUMMARY | 2024-09-08 03:57 | XMS_ITS | Encounter Summary ---
Author Organization [facility] Address [address] [place] [address] Care Team Providers Care Real Estate Rental Agent Name Role Phone Mariam Chapa MD Primary Care Provider +1 -[phone] Encounter Details Date Type Department Care Team Description 01/18/2014 Orders Only Adult Medicine [address] [address] Ariana Fox DO Social History Tobacco Use [...] on filedocumented in this encounter Care Teams Real Estate Rental Agent Relationship Specialty Start Date End Date Mariam Chapa MD [address] [place] [address] PCP - General 07/21/06 documented as of this encounter
--- OUTSIDE RECORDS SUMMARY | 2024-09-08 03:57 | XMS_ITS | Encounter Summary ---
Author Organization [facility] Address [address] [place] [address] Care Team Providers Care Terminal Manager Name Role Phone Mariam Chapa MD Primary Care Provider +1 -[phone] Encounter Details Date Type Department Care Team Description 08/19/2021 Punch Out Crew Member Report Medical Records [address] [place] [address] Abstract, Provider Social History Tobacco Use Types [...] on filedocumented in this encounter Care Teams Terminal Manager Relationship Specialty Start Date End Date Mariam Chapa MD [address] [place] [address] PCP - General 07/21/06 documented as of this encounter
--- OUTSIDE RECORDS SUMMARY | 2024-09-08 03:57 | XMS_ITS | Encounter Summary ---
Author Organization [facility] Address [address] [place] [address] Care Team Providers Care Head Mva Reactor Operator Name Role Phone Mariam Chapa MD Primary Care Provider +1 -[phone] Encounter Details Date Type Department Care Team Description 11/09/2014 Cover Stripper Report Medical Records [address] [place] [address] Daniel Rincon Social History Tobacco Use Types [...] on filedocumented in this encounter Care Teams Head Mva Reactor Operator Relationship Specialty Start Date End Date Mariam Chapa, [address] [place] [address] PCP - General 07/21/06 documented as of this encounter
--- OUTSIDE RECORDS SUMMARY | 2024-09-08 03:57 | XMS_ITS | Encounter Summary ---
Author Organization [facility] Address [address] [place] [address] Care Team Providers Care Kiln Charger Name Role Phone Mariam Chapa MD Primary Care Provider +1 -[phone] Reason for Visit * Reason Onset Date Comments APPOINTMENT 02/24/2024 Encounter Details Date Type Department Care Team Description 02/24/2024 Telephone Adult Medicine - [place] [address] [place] [address] Mariam Chapa MD [address] [place] [address] APPOINTMENT Social History Tobacco Use Types Packs/Day [...] on filedocumented in this encounter Care Teams Kiln Charger Relationship Specialty Start Date End Date Mariam Chapa MD [facility] [place] [address] PCP - General 07/21/06 documented as of this encounter
--- OUTSIDE RECORDS SUMMARY | 2024-09-08 03:57 | XMS_ITS | Encounter Summary ---
Author Organization [facility] Address [address] [place] [address] Care Team Providers Care C Java Developer Name Role Phone Mariam Chapa MD Primary Care Provider +1 -[phone] Encounter Details Date Type Department Care Team Description 07/07/2012 Supervisor Yard Report Medical Records [address] [place] [address] Kenyatta Beauchamp MD Social History Tobacco Use Types Packs/Day [...] on filedocumented in this encounter Care Teams C Java Developer Relationship Specialty Start Date End Date Mariam Chapa MD [address] [place] [address] PCP - General 07/21/06 documented as of this encounter
--- OUTSIDE RECORDS SUMMARY | 2024-09-08 03:57 | XMS_ITS | Encounter Summary ---
Author Organization [facility] Address [address] [place] [address] Care Team Providers Care Molder Operator Name Role Phone Maraim Chapa MD Primary Care Provider +1 -[phone] Reason for Visit * Reason Onset Date Comments Biometry Teacher Feedback 07/02/2020 cardiology Encounter Details Date Type Department Care Team Description 07/02/2020 Telephone Adult Medicine - [place] [address] [place] [address] Mariam Chapa MD [address] [place] [address] Biometry Teacher Feedback (cardiology) Social History Tobacco Use Types Packs/Day Years [...] encounter Miscellaneous Notes * Telephone Encounter - Gail Mohr - 07/02/2020 3:21 PM EST Referral for stress test needs to be placed by PCP * Telephone Encounter - Maria Luisa Alvarez - 07/02/2020 2:26 PM EST What insurance does the patient have today? Bcma: bsr confirmed bcma day of Effective 02/28/09: BCBS will not retro referral [...] insurance must be obtained and registered in [facility] or their referral can not be processed. [...] LAST NAME of SPECIALIST PATIENT is seeing: group npi per process controller from facility is : [phone], recp states to place ref under this number What specialty is this? cardiology DIAGNOSIS Patient is being seen for (Not a body part or a procedure): stress test Have you seen this SPECIALIST for this PROBLEM/DX before?NO If YES, when: Have you checked REVIEW or the APPT DESK to see if this referral has already been done or has visits left? NO Is this visit:Initial Visit Address of Specialist:[address] [place] [address] Phone # of Specialist:[phone] Fax #: (if applicable):[phone] Does patient have an appointment scheduled?: NO Date of appointment- (including a retro-request): Is this appointment related to: Not MVA, WC or Surgery related Visit: 6 documented in this encounter Plan of Treatment Scheduled Orders Name Type Priority Associated Diagnoses Orde r Schedule CARDIOVASCULAR STRESS TEST Cardiology Routine Syncope, unspecified syncope type Expected: 07/02/2020, Expires: 07/02/2021 documented as of this encounter Visit Diagnoses Diagnosis Syncope, unspecified syncope type- Primary documented in this encounter Care Teams Molder Operator Relationship Specialty Start Date End Date Mariam Chapa MD [address] [place] [address] PCP - General 07/21/06 documented as of this encounter
--- OUTSIDE RECORDS SUMMARY | 2024-09-08 03:57 | XMS_ITS | Encounter Summary ---
Author Organization [facility] Address [address] [place] [address] Care Team Providers Care Absorption Operator Name Role Phone Mariam Chapa MD Primary Care Provider +1 -[phone] Encounter Details Date Type Department Care Team Description 03/17/2021 Orders Only Adult Medicine - [place] [address] [place] [address] Mariam Chapa MD [address] [place] [address] Muscle weakness (generalized) Social History Tobacco Use [...] as of this encounter Visit Diagnoses Diagnosis Muscle weakness (generalized) documented in this encounter Care Teams Absorption Operator Relationship Specialty Start Date End Date Mariam Chapa MD [address] [place] [address] PCP - General 07/21/06 documented as of this encounter
--- OUTSIDE RECORDS SUMMARY | 2024-09-08 03:57 | XMS_ITS | Encounter Summary ---
Author Organization [facility] Address [address] [place] [address] Care Team Providers Care Night Coordinator Name Role Phone Mariam Chapa MD Primary Care Provider +1 -[phone] Encounter Details Date Type Department Care Team Description 09/03/2014 Project Geologist Report Medical Records [address] [place] [address] Mary Ann Starks Social History Tobacco Use Types Packs/Day Years [...] on filedocumented in this encounter Care Teams Night Coordinator Relationship Specialty Start Date End Date Mariam Chapa MD [address] [place] [address] PCP - General 07/21/06 documented as of this encounter
--- OUTSIDE RECORDS SUMMARY | 2024-09-08 03:57 | XMS_ITS | Encounter Summary ---
Author Organization [facility] Address [address] [place] [address] Care Team Providers Care Game Operator Name Role Phone Mariam Chapa MD Primary Care Provider +1 -[phone] Reason for Visit * Reason Onset Date Comments Faxed Order 02/21/2024 Faxed Order-[id number] Encounter Details Date Type Department Care Team Description 02/21/2024 Telephone Adult Medicine - [place] [address] [place] [address] Mariam Chapa MD [address] [place] [address] Faxed Order (Faxed Order-[id number]) Social History Tobacco Use Types Packs/Day Years [...] WHEN ORDER HAS BEEN FAXED Faxed order [id number] received from [facility], requesting signature from provider. Please sign and fax back to [phone]. Faxed order in PCP's folder ( orange) at check out. documented in this encounter Plan of Treatment Not on file documented as of this encounter Visit Diagnoses Not on filedocumented in this encounter Care Teams Game Operator Relationship Specialty Start Date End Date Mariam Chapa MD [address] [place] [address] PCP - General 07/21/06 documented as of this encounter
--- OUTSIDE RECORDS SUMMARY | 2024-09-08 03:57 | XMS_ITS | Encounter Summary ---
Author Organization [facility] Address [address] [place] [address] Care Team Providers Care Stripper Black And White Name Role Phone Mariam Chapa MD Primary Care Provider +1 -[phone] Encounter Details Date Type Department Care Team Description 04/05/2012 Press Operator Automatic Report Medical Records [address] [place] [address] Mindi Lincoln MD Social History Tobacco Use [...] on filedocumented in this encounter Care Teams Stripper Black And White Relationship Specialty Start Date End Date Mariam Chapa MD [address] [place] [address] PCP - General 07/21/06 documented as of this encounter
--- OUTSIDE RECORDS SUMMARY | 2024-09-08 03:57 | XMS_ITS | Encounter Summary ---
Author Organization [facility] Address [address] [place] [address] Care Team Providers Care Primary Grade Teacher Name Role Phone Mariam Chapa MD Primary Care Provider +1 -[phone] Encounter Details Date Type Department Care Team Description 04/09/2014 Logistics Operations Director Report Medical Records [address] [place] [address] Social History Tobacco Use Types Packs/Day Years [...] on filedocumented in this encounter Care Teams Primary Grade Teacher Relationship Specialty Start Date End Date Mariam Chapa MD [address] [place] [address] PCP - General 07/21/06 documented as of this encounter
--- OUTSIDE RECORDS SUMMARY | 2024-09-08 03:57 | XMS_ITS | Encounter Summary ---
Author Organization [facility] Address [address] [place] [address] Care Team Providers Care Otr Owner Operator Truck Driver Name Role Phone Mariam Chapa MD Primary Care Provider +1 -[phone] Encounter Details Date Type Department Care Team Description 02/21/2021 Telephone Adult Medicine - [place] [address] [place] [address] Mariam Chapa MD [address] [place] [address] Social History Tobacco Use Types Packs/Day Years [...] as of this encounter Visit Diagnoses Diagnosis Systemic lupus erythematosus, unspecified SLE type, unspecified organ involvement status (HCC)- Primary documented in this encounter Care Teams Otr Owner Operator Truck Driver Relationship Specialty Start Date End Date Mariam Chapa MD [address] [place] [address] PCP - General 07/21/06 documented as of this encounter
--- OUTSIDE RECORDS SUMMARY | 2024-09-08 03:57 | XMS_ITS | Encounter Summary ---
Author Organization [facility] Address [address] [place] [address] Care Team Providers Care Packaging Coordinator Name Role Phone Mariam Chapa MD Primary Care Provider +1 -[phone] Encounter Details Date Type Department Care Team Description 03/14/2021 Hospital Medical Records [address] [place] [address] Rox Benz NP Social History Tobacco Use [...] on filedocumented in this encounter Care Teams Packaging Coordinator Relationship Specialty Start Date End Date Mariam Chapa MD [address] [place] [address] PCP - General 07/21/06 documented as of this encounter
--- OUTSIDE RECORDS SUMMARY | 2024-09-08 03:57 | XMS_ITS | Encounter Summary ---
Author Organization [facility] Address [address] [place] [address] Care Team Providers Care Cable Tower Operator Name Role Phone Mariam Chapa MD Primary Care Provider +1 -[phone] Encounter Details Date Type Department Care Team Description 02/22/2024 Orders Only Medical Records [address] [place] [address] Social History Tobacco Use Types Packs/Day Years [...] * OUTSIDE LAB (01/28/2024) [facility] * OUTSIDE VASCULAR STUDY (01/28/2024) [facility] CARDIOLOGY documented in this encounter Visit Diagnoses Not on filedocumented in this encounter Care Teams Cable Tower Operator Relationship Specialty Start Date End Date Mariam Chapa MD [facility] [place] [address] PCP - General 07/21/06 documented as of this encounter
--- OUTSIDE RECORDS SUMMARY | 2024-09-08 03:57 | XMS_ITS | Encounter Summary ---
Author Organization [facility] Address [address] [place] [address] Care Team Providers Care Veterinary Nurse Name Role Phone Mariam Chapa MD Primary Care Provider +1 -[phone] Encounter Details Date Type Department Care Team Description 11/02/2012 Release of Information Medical Records [address] [place] [address] Abstract, Provider Social History Tobacco Use Types [...] on filedocumented in this encounter Care Teams Veterinary Nurse Relationship Specialty Start Date End Date Mariam Chapa, [address] [place] [address] PCP - General 07/21/06 documented as of this encounter
--- OUTSIDE RECORDS SUMMARY | 2024-09-08 03:57 | XMS_ITS | Encounter Summary ---
Author Organization [facility] Address [address] [place] [address] Care Team Providers Care Senior Biostatistician/Group Leader Name Role Phone Mariam Chapa MD Primary Care Provider +1 -[phone] Encounter Details Date Type Department Care Team Description 01/28/2024 Hospital Medical Records [address] [place] [address] [facility] Social History Tobacco Use Types Packs/Day Years [...] filedocumented in this encounter Care Teams Senior Biostatistician/Group Leader Relationship Specialty Start Date End Date Mariam Chapa, [address] [place] [address] PCP - General 07/21/06 documented as of this encounter
--- OUTSIDE RECORDS SUMMARY | 2024-09-08 03:57 | XMS_ITS | Encounter Summary ---
[facility] Organization [facility] Address [address] [place] [address] Care Team Providers Care Mink Farmer Name Role Phone Mariam Chapa MD Primary Care Provider +1 -[phone] Reason for Visit * Reason Onset Date Comments Testing 01/12/2013 Encounter Details Date Type Department Care Team Description 01/12/2013 Telephone Adult Medicine - [place] [address] [place] [address] Mariam Chapa MD [address] [place] [address] Testing Social History Tobacco Use Types Packs/Day Years [...] Telephone Encounter - Mariam Chapa MD - 01/12/2013 10:48 AM EDT This is accurate * Telephone Encounter - Julianne Combs - 01/12/2013 10:11 AM EDT Patient said you told her she longer need to have a bone scan (nuclear), removing order. documented in this encounter Plan of Treatment Not on file documented as of this encounter Visit Diagnoses Not on filedocumented in this encounter Care Teams Mink Farmer Relationship Specialty Start Date End Date Mariam Chapa MD [address] [place] [address] PCP - General 07/21/06 documented as of this encounter
--- OUTSIDE RECORDS SUMMARY | 2024-09-08 03:57 | XMS_ITS | Encounter Summary ---
Author Organization [facility] Address [address] [place] [address] Care Team Providers Care Manager Video Name Role Phone Mariam Chapa MD Primary Care Provider +1 -[phone] Encounter Details Date Type Department Care Team Description 05/10/2014 Concrete Batching Plant Operator Report Medical Records [address] [place] [address] Social History Tobacco Use Types Packs/Day Years [...] filedocumented in this encounter Care Teams Manager Video Relationship Specialty Start Date End Date Mariam Chapa MD [address] [place] [address] PCP - General 07/21/06 documented as of this encounter
--- OUTSIDE RECORDS SUMMARY | 2024-09-08 03:57 | XMS_ITS | Encounter Summary ---
Author Organization [facility] Address [address] [place] [address] Care Team Providers Care Ballistician Name Role Phone Mariam Chapa MD Primary Care Provider +1 -[phone] Reason for Visit * Reason Onset Date Comments Provider Call Back 01/15/2020 Encounter Details Date Type Department Care Team Description 01/15/2020 Telephone Adult Medicine - [place] [address] [place] [address] Mariam Chapa MD [address] [place] [address] Provider Call Back Social History Tobacco Use [...] encounter Miscellaneous Notes * Telephone Encounter - Allen Goode - 01/17/2020 3:14 PM EDT Pt returning call * Telephone Encounter - Mariam Chapa MD - 01/16/2020 8:18 AM EDT Called x 2 no answer * Telephone Encounter - Melody Stanton - 01/15/2020 2:38 PM EDT Caller requesting call back from provider:Millicent Chapa Is the caller the patient? YES If caller is not the patient, what is the callers name? N/A Callers relationship to patient? N/A If person calling is not the patient themselves, is there a verbal release in FYI or permanent comments for this person: Reason for call back: Patient has a question about b-12 shots. Caller offered to speak with the nurse for assistance: YES Response: Patient offered to speak with nurse for assistance and patient agreed. Message forwardedto nurse. documented in this encounter Plan of Treatment Not on file documented as of this encounter Visit Diagnoses Not on filedocumented in this encounter Care Teams Ballistician Relationship Specialty Start Date End Date Mariam Chapa MD [address] [place] [address] PCP - General 07/21/06 documented as of this encounter
--- OUTSIDE RECORDS SUMMARY | 2024-09-08 03:57 | XMS_ITS | Encounter Summary ---
Author Organization [facility] Address [address] [place] [address] Care Team Providers Care Operator Technician Name Role Phone Mariam Chapa MD Primary Care Provider +1 -[phone] Encounter Details Date Type Department Care Team Description 01/24/2024 Coater Operator Report Medical Records [address] [place] [address] Lana Stewart Social History Tobacco Use Types Packs/Day Years [...] on filedocumented in this encounter Care Teams Operator Technician Relationship Specialty Start Date End Date Mariam Chapa, [address] [place] [address] PCP - General 07/21/06 documented as of this encounter
--- OUTSIDE RECORDS SUMMARY | 2024-09-08 03:57 | XMS_ITS | Encounter Summary ---
Author Organization [facility] Address [address] [place] [address] Care Team Providers Care Scene And Lighting Design Lecturer Name Role Phone Mariam Chapa MD Primary Care Provider +1 -[phone] Reason for Visit * Reason Onset Date Comments Orders Call 12/18/2020 Encounter Details Date Type Department Care Team Description 12/18/2020 Telephone Adult Medicine - [place] [address] [place] [address] Mariam Chapa MD [address] [place] [address] Orders Call Social History Tobacco Use Types [...] encounter Miscellaneous Notes * Telephone Encounter - Kristi Mccarty M.A. - 12/20/2020 2:07 PM EDT Patient notified of results. Pt verbally understands. * Telephone Encounter - Mariam Chapa MD - 12/20/2020 11:25 AM EDT Reviewed blood showed a mild iron deficiency no anemia and otherwise normal, unfortunately since itwas done outside [facility] she cannot access it via [employer] I will send a copy to her by mail * Telephone Encounter - Kristi Mccarty M.A. - 12/20/2020 11:12 AM EDT Patient looking for lab work ordered by Dr. Cruz. Results final and scanned in chart. Please review. * Telephone Encounter - Allen Goode - 12/19/2020 4:12 PM EDT Pt calling would like call back on results * Telephone Encounter - Lluvia King - 12/18/2020 4:38 PM EDT Pt notified that orders have been faxed * Telephone Encounter - Camilla Nolan M.A. - 12/18/2020 4:35 PM EDT Faxed labs to requested facility. Called patient and l/m for patient to call the office back. * Telephone Encounter - Carolina Day - 12/18/2020 3:00 PM EDT Patient is calling back- would like this done today so she may get her labs drawn * Telephone Encounter - Teressa Norman - 12/18/2020 9:26 AM EDT Pt is calling asking for all the orders for blood work from 12/10 be faxed over to [facility]. Pt would like to be called when this is done. documented in this encounter Plan of Treatment Not on file documented as of this encounter Visit Diagnoses Not on filedocumented in this encounter Care Teams Scene And Lighting Design Lecturer Relationship Specialty Start Date End Date Mariam Chapa MD [address] [place] [address] PCP - General 07/21/06 documented as of this encounter
--- OUTSIDE RECORDS SUMMARY | 2024-09-08 03:57 | XMS_ITS | Encounter Summary ---
Author Organization [facility] Address [address] [place] [address] Care Team Providers Care Tafe Registrar Name Role Phone Mariam Chapa MD Primary Care Provider +1 -[phone] Reason for Visit * Reason Onset Date Comments TEST RESULTS 06/06/2019 Encounter Details Date Type Department Care Team Description 06/06/2019 Telephone Adult Medicine - [place] [address] [place] [address] Mariam Chapa MD [address] [place] [address] TEST RESULTS Social History Tobacco Use Types [...] on filedocumented in this encounter Care Teams Tafe Registrar Relationship Specialty Start Date End Date Mariam Chapa MD [facility] [place] [address] PCP - General 07/21/06 documented as of this encounter
--- OUTSIDE RECORDS SUMMARY | 2024-09-08 03:57 | XMS_ITS | Encounter Summary ---
Author Organization [facility] Address [address] [place] [address] Care Team Providers Care Cras Name Role Phone Mariam Chapa MD Primary Care Provider +1 -[phone] Encounter Details Date Type Department Care Team Description 02/21/2021 Orders Only Adult Medicine - [place] [address] [place], [place] [id number] Mariam Chapa, [address] [place] [address] Lupus (HCC) (Primary Dx) Social History Tobacco [...] aging. For additional information, please refer to http://education.[employer]/faq/YFY467 (This link is being provided for informational/educational purposes only.) ?? <25 ?? Negative ??25-35 ??Equivocal- Found in small percentage of ?the healthy population ??may ?be reactive ?? >35 ?? Positive - Risk factor for thrombosis Test Performed at: [facility] [address] ? I Joceline DE JESUS, PhD, [...] EDT 12/02/2021 3:09 PM EDT Narrative [facility] - 12/09/2021 1:39 AM EDT Release to patient->Immediate Ch Sammi DE [facility] Performing Organization Address City/State/[facility] Co de Phone Number [facility] documented in this encounter Visit Diagnoses Diagnosis Lupus- Primary Systemic lupus erythematosus documented in this encounter Care Teams Cras Relationship Specialty Start Date End Date Mariam Chapa MD [facility] [place] [place] [address] PCP - General 07/21/06 documented as of this encounter
--- OUTSIDE RECORDS SUMMARY | 2024-09-08 03:58 | XMS_ITS | Encounter Summary ---
Author Organization [facility] Address [address] [place] [address] Care Team Providers Care Campaign Associate Name Role Phone Mariam Chapa MD Primary Care Provider +1 -[phone] Encounter Details Date Type Department Care Team Description 07/14/2023 Orders Only Medical Records [address] [place] [address] [facility] Social History Tobacco Use Types Packs/Day [...] encounter Results * OUTSIDE PLAIN FILM (06/25/2023) [facility] RADIOLOGY documented in this encounter Visit Diagnoses Not on filedocumented in this encounter Care Teams Campaign Associate Relationship Specialty Start Date End Date Mariam Chapa, [address] [place] [address] PCP - General 07/21/06 documented as of this encounter
--- OUTSIDE RECORDS SUMMARY | 2024-09-08 03:58 | XMS_ITS | Encounter Summary ---
Author Organization [facility] Address [address] [place] [address] Care Team Providers Care Ampoule Washing Machine Operator Name Role Phone Mariam Chapa MD Primary Care Provider +1 -[phone] Reason for Visit * Reason Onset Date Comments hospital follow up 01/28/2018 Please call p atient for hosp f/u appt. D/C from [facility] on 01/27 for ACS Eval. Encounter Details Date Type Department Care Team Description 01/28/2018 Telephone Adult Medicine - [place] [address] [place] [address] Mariam Chapa MD [address] [place] [address] hospital follow up (Please call patient for hosp f/u appt. D/C from [facility] on 01/27 for [...] Call to pt. [place] [facility] [place], She was sick to her stomach x 2 , sweats, slumped on the wall, Passed out, Pt was rice in color, sweats, admitted to hosp Given fluids, and observed , seen by lye treater, jennifer low, Her d dimer was mildly elevated, ekg changes , the told it was normal documented in this encounter Plan of Treatment Not on file documented as of this encounter Visit Diagnoses Not on filedocumented in this encounter Care Teams Ampoule Washing Machine Operator Relationship Specialty Start Date End Date Mariam Chapa MD [address] [place] [address] PCP - General 07/21/06 documented as of this encounter
--- OUTSIDE RECORDS SUMMARY | 2024-09-08 03:58 | XMS_ITS | Encounter Summary ---
Author Organization [facility] Address [address] [place] [address] Care Team Providers Care Fitness Center Attendant Name Role Phone Mariam Chapa MD Primary Care Provider [phone] [phone] Encounter Details Date Type Department Care Team Description 03/12/2023 Orders Only Medical Records [address] [place] [address] Abstract, Provider Social History Tobacco Use Types [...] on filedocumented in this encounter Care Teams Fitness Center Attendant Relationship Specialty Start Date End Date Mariam Chapa, [address] [place] [address] PCP - General 07/21/06 documented as of this encounter
--- OUTSIDE RECORDS SUMMARY | 2024-09-08 03:58 | XMS_ITS | Encounter Summary ---
Author Organization [facility] Address [address] [place] [address] Care Team Providers Care Welder Name Role Phone Mariam Chapa MD Primary Care Provider [phone] -[phone] Reason for Visit * Reason Onset Date Comments Testing 07/19/2023 Encounter Details Date Type Department Care Team Description 07/19/2023 Telephone Adult Medicine - [place] [address] [place] [address] Mariam Chapa MD [address] [place] [address] Testing Social History Tobacco Use Types Packs/Day [...] Miscellaneous Notes * Telephone Encounter - Kristi Martinez M.A. - 07/19/2023 9:56 AM EST Called pt to request reason for wanting a chest x ray; c/o cold symptoms, such as coughing with pain on left side of chest, not breathing well. She tested negative for COVID, but is worried about pneumonia. I advised going to urgent care, or waiting to be seen by Dr. Chapa on Friday 07/21. She said she is going to go to urgent care. * Telephone Encounter - Robyn King - 07/19/2023 9:07 AM EST Patient calling to request labs be ordered: What work is patient requesting? Chest x-ray Does patient have an upcoming appointment, if yes when and WITH WHO? yes 07/21 Patients PCP is: Millicent Chapa documented in this encounter Plan of Treatment Not on file documented as of this encounter Visit Diagnoses Not on filedocumented in this encounter Care Teams Welder Relationship Specialty Start Date End Date Mariam Chapa MD [address] [place] [address] PCP - General 07/21/06 documented as of this encounter
--- OUTSIDE RECORDS SUMMARY | 2024-09-08 03:58 | XMS_ITS | Encounter Summary ---
Author Organization [facility] Address [address] [place] [address] Care Team Providers Care Lime Kiln Worker Helper Name Role Phone Mariam Chapa MD Primary Care Provider [phone] -[phone] Encounter Details Date Type Department Care Team Description 01/26/2019 Binder Stripper Hand Report Medical Records [address] [place] [address] Katharina Seymour Social History Tobacco Use Types Packs/Day Years [...] on filedocumented in this encounter Care Teams Lime Kiln Worker Helper Relationship Specialty Start Date End Date Mariam Chapa MD [address] [place] [address] PCP - General 07/21/06 documented as of this encounter
--- OUTSIDE RECORDS SUMMARY | 2024-09-08 03:58 | XMS_ITS | Encounter Summary ---
Author Organization [facility] Address [address] [place] [address] Care Team Providers Care Upholstery Sewer Name Role Phone Mariam Chapa MD Primary Care Provider +1 -[phone] Encounter Details Date Type Department Care Team Description 09/02/2013 Night Triage Doc Medical Records [address] [place] [address] Abstract, Provider Social History Tobacco Use Types [...] on filedocumented in this encounter Care Teams Upholstery Sewer Relationship Specialty Start Date End Date Mariam Chapa, [address] [place] [address] PCP - General 07/21/06 documented as of this encounter
--- OUTSIDE RECORDS SUMMARY | 2024-09-08 03:58 | XMS_ITS | Encounter Summary ---
Author Organization [facility] Address [address] [place] [address] Care Team Providers Care Warehouse Guard Name Role Phone Mariam Chapa MD Primary Care Provider +1 -[phone] Encounter Details Date Type Department Care Team Description 06/08/2011 General Hardware Salesperson Report Medical Records [address] [place] [address] Vinnie Sprague Social History Tobacco Use Types [...] on filedocumented in this encounter Care Teams Warehouse Guard Relationship Specialty Start Date End Date Mariam Chapa, [address] [place] [address] PCP - General 07/21/06 documented as of this encounter
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
--- OUTSIDE RECORDS SUMMARY | 2024-09-08 03:58 | XMS_ITS | Encounter Summary ---
Author Organization [facility] Address [address] [place] [address] Care Team Providers Care Web Retailer Name Role Phone Mariam Chapa MD Primary Care Provider [phone] -[phone] Reason for Visit * Reason Onset Date Comments Letter 06/28/2023 Encounter Details Date Type Department Care Team Description 06/28/2023 Telephone Adult Medicine - [place] [address] [place] [address] Mariam Chapa MD [address] [place] [address] Letter Social History Tobacco Use Types Packs/Day [...] 06/29/2023 9:45 AM EST Placed in patient supervisor heavy equipment, notified patient this was ready. * Telephone [...] needed for completion: EDUIN When completed: Will supervisor heavy equipment-call when completed: documented in this encounter Plan of Treatment Not on file documented as of this encounter Visit Diagnoses Not on filedocumented in this encounter Care Teams Web Retailer Relationship Specialty Start Date End Date Mariam Chapa MD [facility] [place] [address] PCP - General 07/21/06 documented as of this encounter
--- OUTSIDE RECORDS SUMMARY | 2024-09-08 03:58 | XMS_ITS | Encounter Summary ---
Author Organization [facility] Address [address] [place] [address] Care Team Providers Care Block Machine Operator Name Role Phone Mariam Chapa MD Primary Care Provider +1 -[phone] Reason for Visit * Reason Onset Date Comments radiology 05/11/2023 MRI denial Encounter Details Date Type Department Care Team Description 05/11/2023 Telephone Radiology - [place] [address] [place] [address] Mariam Chapa, [address] [place] [address] radiology (MRI denial) Social History Tobacco Use [...] Magaña - 06/08/2023 1:59 PM EST Case [id number] - does not meet medical criteria * Telephone Encounter - Mariam Chapa MD - 05/13/2023 4:42 PM EST Called [employer] to do a peer to peer review and they said the case number was wrong. Can you look into this * Telephone Encounter - Donna Magaña - 05/11/2023 11:53 AM EST MRI denied, case #[id number] [employer] phone # for P2P [phone] documented in this encounter Plan of Treatment Not on file documented as of this encounter Visit Diagnoses Not on filedocumented in this encounter Care Teams Block Machine Operator Relationship Specialty Start Date End Date Mariam Chapa MD [address] [place] [address] PCP - General 07/21/06 documented as of this encounter
--- OUTSIDE RECORDS SUMMARY | 2024-09-08 03:58 | XMS_ITS | Encounter Summary ---
Author Organization [facility] Address [address] [place] [address] Care Team Providers Care Water Softener Servicer Name Role Phone Mariam Chapa MD Primary Care Provider +1 -[phone] Encounter Details Date Type Department Care Team Description 11/29/2013 Lawn Service Worker Report Medical Records [address] [place] [address] Social History Tobacco Use Types Packs/Day Years [...] on filedocumented in this encounter Care Teams Water Softener Servicer Relationship Specialty Start Date End Date Mariam Chapa MD [address] [place] [address] PCP - General 07/21/06 documented as of this encounter
--- OUTSIDE RECORDS SUMMARY | 2024-09-08 03:58 | XMS_ITS | Encounter Summary ---
Author Organization [facility] Address [address] [place] [address] Care Team Providers Care Ship Joiner Name Role Phone Mariam Chapa MD Primary Care Provider +1 -[phone] Encounter Details Date Type Department Care Team Description 07/29/2011 Patent Searcher Report Medical Records [address] [place] [address] Vinnie Sprague Social History Tobacco Use Types [...] on filedocumented in this encounter Care Teams Ship Joiner Relationship Specialty Start Date End Date Mariam Chapa, [address] [place] [address] PCP - General 07/21/06 documented as of this encounter
--- OUTSIDE RECORDS SUMMARY | 2024-09-08 03:58 | XMS_ITS | Encounter Summary ---
Author Organization [facility] Address [address] [place] [address] Care Team Providers Care Croze Cutter Helper Name Role Phone Mariam Chapa MD Primary Care Provider +1 -[phone] Reason for Visit * Reason Onset Date Comments Orders Call 03/25/2018 Encounter Details Date Type Department Care Team Description 03/25/2018 Telephone Adult Medicine - [place] [address] [place] [address] Maraim Chapa MD [address] [place] [address] Orders Call Social History Tobacco Use Types [...] surface antibody NEGATIVE 04/01/2018 10:23 AM EDT [facility] Comment:Individual is consid ered NOT to be immune to HBV. 03/31/2018 4:26 PM EDT 03/31/2018 4:26 PM EDT Mariam Chapa MD LAB [address] documented in this encounter Visit Diagnoses Diagnosis Screening examination for pulmonary tuberculosis- Primary Antibody response examination Screening for endocrine, nutritional, metabolic and immunity disorder Screening for other and unspecified endocrine, nutritional, metabolic, and immunity disorders documented in this encounter Care Teams Croze Cutter Helper Relationship Specialty Start Date End Date Mariam Chapa, [address] [place] [address] PCP - General 07/21/06 documented as of this encounter
--- OUTSIDE RECORDS SUMMARY | 2024-09-08 03:58 | XMS_ITS | Clinical Summary ---
Author Organization [facility] [address] [facility] l[address] Address [address] [place] [address] Phone Care Team Providers Care Blending Tank Tender Helper Name Role Phone Millicent Chapa MD Primary [...] 1 mg 56 tablet 2 08/10/19 Active pregabalin (LYRICA) 25 mg capsule Take 1 capsule (25 mg total) by mouth 1 (one) time each day. Max Daily Amount: 25 mg 30 capsule 5 08/11/19 25 Active UNABLE TO FIND Misc. Devices (Free Spirit Knee/Leg Walker) Misc, 1 Device by Does not apply route daily. 01/28/20 24 025 Discontinued HYDROmorphone (Dilaudid) 2 mg tabletIndications :Pain of left heel,Chronic pain of left knee,Closed fracture of left tibial plateau, sequela Take 1 tablet (2 mg total) by mouth every 8 (eight) hours for 5 days. Max Daily Amount: 6 mg 20 tablet 08/11/19 25 025 Discontinued(Re order) HYDROmorphone (Dilaudid) 2 mg tabletIndications :Pain of left heel,Chronic pain of left knee,Closed fracture of left tibial plateau, sequela Take 1 tablet (2 mg total) by mouth every 8 (eight) hours for 14 days. Max Daily Amount: 6 mg 42 each 08/22/19 25 025 Discontinued(Re order) HYDROmorphone (Dilaudid) 2 mg tabletIndications :Pain of left heel,Chronic pain of left knee,Closed fracture of left tibial plateau, sequela Take 1 tablet (2 mg total) by mouth every 8 (eight) hours for 14 days. Max Daily Amount: 6 mg 42 each 08/22/19 25 025 Active Problems Problem Noted Date [...] Encounters Date Type Department Care Team Description 09/01/2024 Telephone Adult [facility] [address] [place] [phone] Millicent Subramanian MD Fitting for DME 08/29/2024 Telephone [facility] [address] [place] [phone] Millicent Subramanian MD imaging 08/28/2024 Telephone [facility] [address] [place] [address] Fredrick Munoz PA Medication Problem (HYDROmorphone (Dilaudid) 2 mg tablet) 08/23/2024 Telephone [facility] [address] [place] [address] Millicent Subramanian MD Referral (Attempted to reach, no response. TR) 08/17/2024 9:30 AM EDT Office Visit Adult [facility] [address] [place] [phone] Fredrick Munoz PA Chronic pain of left knee (Primary Dx); Leg swelling; Elevated BUN 08/17/2024 Telephone Adult [facility] [address] [place] [address] Millicent Crandall MA [facility] URINE DRUG SCREEN 08/10/2024 9:00 AM EDT Office Visit [address] [address] Fredrick Munoz PA Pain of left heel (Primary Dx); Chronic pain of left knee; Closed fracture of left tibial plateau, sequela; Muscle weakness (generalized) 08/10/[address] [address] Fredrick Munoz PA Fitting for DME 08/08/[address] [address] Fredrick Munoz PA Call Back; Joint Swelling 07/20/[address] [address] Fredrick Munoz PA Medication Problem (HYDROmorphone (Dilaudid) 2 mg tablet ) 07/17/[address] [address] Fredrick Munoz PA Letter for School/Work 07/14/[address] [address] Millicent Subramanian MD A call back (Regarding treatment for pain); Medication Problem 07/11/2024 10:00 AM EST Office Visit [address] [address] Fredrick Munoz PA Chronic pain of left knee (Primary Dx); Bilateral edema of lower extremity 07/11/[address] [address] Fredrick Munoz PA 07/05/[address] [address] Millicent Subramanian MD Joint Swelling (Ankles Swelling ) 07/03/[address] [address] Millicent Subramanian MD Joint Swelling 06/20/2024 Telephone Adult [facility] [address] [place] [address] Millicent Subramanian MD Pain 06/15/2024 10:00 AM EST Office Visit [facility] [address] [place] [address] Millicent Subramanian MD Closed fracture of left tibial plateau with delayed healing, subsequent encounter (Primary Dx); Chronic pain syndrome; Osteoporosis, unspecified osteoporosis type, unspecified pathological fracture presence from Last 3 Months Immunizations Name Administration Dates Next Due Influenza Quadravalent, MDCK , 0.5ml, with preservative (Flucelvax) 6mo and older 04/14/2021 [employer] SARS-CoV-2 COVID -19, vector-nr, [id number], preservative free 03/27/2021 PPD Test 03/17/2017,02/18/2010 Surgical History Surgery Date Site/Laterality Comments VAGINAL DELIVERY PROCEDURE: [place] VAGINAL DELIVERY ONLY; COMMENT: x3 Medical History [...] Orientation Straight 08/22/2024 4: 58 PM EDT Obstetrics History Last Filed Vital Signs Vital Sign Reading Time Taken Comments Blood Pressure 103/63 08/17/2024 9:33 AM EDT Pulse 84 08/17/2024 9:33 AM EDT Temperature 36.6 ??C (97.9 ??F) 08/17/2024 9:33 AM ED T Respiratory Rate - - Oxygen Saturation - - Inhaled Oxygen Concentration - - Weight 45.4 kg (100 lb) 08/17/2024 9:33 AM EDT Height 154.9 cm (5' 1 ) 08/10/2024 8:59 AM EDT Body Mass Index 18.89 08/10/2024 8:59 AM EDT Plan of Treatment Upcoming Encounters Date Type Department Care Team (Late st Contact Info) Description 09/27/2024 8:30 AM EDT Office Visit Adult Medicine - [place] [address] [place] [address] Millicent Chapa MD [address] [place] [address] Health Maintenance Due Date Last Done Comments DTaP,Tdap,and Td Vaccines (1 - Tdap) 12/29/1978 Pneumococcal Vaccine: 50+ Years (1 of 2 - PCV) 12/29/1978 Pneumococcal Vaccine: Pediatrics (0 to 5 Years) and At-Risk Patients (6 to 64 Years) (1 of 2 - PCV) 12/29/1978 Zoster Vaccines (1 of 2) 04/15/2017 017, 02/18/2017 RSV Immunization Adult Patients (1 - Risk 60-74 years 1-dose series) [...] age to complete this topic Meningococcal B Vaccine Aged Out No l onger eligible based on patient's age to complete this topic RSV Immunization Patients Under 20 months Aged Out No longer eligible b ased on patient's age to complete this topic Procedures Procedure Name Priority Date/Time Associated Diagnosis Comments OPIATES CONFIRMATION, URINE Routine 08/17/2024 10:27 AM EDT Chronic pain of left knee DRUG ABUSE SCREEN EXPANDED WITH REFLEX CONFIRMATION, URINE Routine 08/17/2024 10:27 AM EDT Chronic pain of left knee DXA BONE DENSITY STUDY 1+ SITS AXIAL SKEL Routine 07/06/2022 11:16 AM EST Age-related osteoporosis without current pathological fracture HEPATITIS C SCREENING Routine 04/03/2019 PAP SMEAR Routine 12/29/2017 COLONOSCOPY Routine 10/26/2014 HIV SCREENING Routine 02/03/2011 from Last 3 Months or Most Recently Relevant to Health Maintenance Results * (ABNORMAL) Drug abuse screen expanded with reflex confirmation, urine (08/17/2024 10:27 AM EDT) [facility] Amphetamine Screen, Ur Negative Negative LAB CHEMISTRY METHOD 5 5:25 PM EDT [facility] Comment:Certain OTC medicati ons containing ephedrine, phenylephrine, pseudoephedrine and phenylpropanolamine can cause false positive results. Barbiturate Screen, Ur Negative Negative LAB CHEMISTRY METHOD 5 5:25 PM EDT [facility] Benzodiazepine Screen, Ur Negative Negative LAB CHEMISTRY METHOD 5 5:25 PM EDT [facility] Cocaine Screen, Ur Negative Negative LAB CHEMISTRY METHOD 5 5:25 PM [facility] Opiate Screen, Ur Positive(A ) Negative LAB CHEMISTRY METHOD 5 5:25 PM [facility] Cannabinoid (THC) Screen, Ur Negative Negative LAB CHEMISTRY METHOD 5 5:25 PM [facility] Comment:Specimens from patie nts taking pantoprazole sodium (Protonix) have been shown to produce false positive results. Fentanyl, Ur Negative Negative LAB CHEMISTRY METHOD 5 5:25 PM [facility] Oxycodone Screen, Ur Negative Negative LAB CHEMISTRY METHOD 5 5:25 PM [facility] Urine Urine specimen obtained by clean catch procedure / Unknown Non-blood Collection / Unknown 08/17/2024 10:27 AM EDT 08/17/2024 10:27 AM EDT Narrative [facility] - 08/17/2024 5:25 PM EDT Assay cutoffs: Amphetamines ? 1000 ng/mL Barbiturates ?200 ng/mL Benzodiazepines ?? 200 ng/mL Cocaine ? 300 ng/mL Fentanyl ?1 ng/mL Opiates ? 300 ng/mL Oxycodone ? 100 ng/mL THC ?50 ng/mL Semi-quantitative assay for screening purposes only. Unconfirmed screening result should not be used for non-medical purposes. *POSITIVE RESULTS ARE AUTOMATICALLY SENT FOR ALTERNATE METHOD CONFIRMATION* us Fredrick STEVEN LAB URINE ORDERABLES Final Res ult [facility] [address] [place] [address], * Opiates confirmation, urine (08/17/2024 10:27 AM EDT) Morphine Confirm, Urine Negative ng/mL 08/22/2024 11:34 AM EDT [facility] Codeine Confirm, Urine Negative ng/mL 08/22/2024 11:34 AM EDT [facility] Hydrocodone Confirm, Urine Negative ng/mL 08/22/2024 11:34 AM EDT [facility] Hydromorphone Confirm, Urine 4379 ng/mL 08/22/2024 11:34 AM EDT [facility] Oxycodone Confirm, Urine Negative ng/mL 08/22/2024 11:34 AM EDT [facility] Oxymorphone Confirm, Urine Negative ng/mL 08/22/2024 11:34 AM EDT [facility] Creatinine 127 20 - 250 mg/dL 08/22/2024 11:34 AM EDT [facility] Adulterants Negative 08/22/2024 11:34 AM EDT [facility] Comment: ? Confirmation (LC/MS/MS) Decision Limits ?Morphine ?25 ng/mL ?Codeine ? 25 ng/mL ?Hydrocodone ? 25 ng/mL ?Hydromorphone ? 25 ng/mL ?Oxycodone ? 25 ng/mL ?Oxymorphone ? 25 ng/mL ?Adulterant Decision Limit: ? General Oxidants ? 200 ug/mL ?The adulterant assay tests for General Oxidants, ??including Chromates and Nitrites. ??Adulterants are ??substances either ingested or added directly to a ??urine specimen to prevent the detection of drug use. If applicable, any drug confirmation testing reported here was developed and the performance characteristics determined by [facility]. This confirmation testing has not been cleared or approved by the FDA. The laboratory is regulated under CLIA as qualified to perform high-complexity testing. This test is used for patient testing purposes. It should not be regarded as investigational or for research. Test performed at [facility], [address], [place], [place] ??[address] ? [phone] Alyssa Barclay MD, PhD - Campground Manager Urine Urine specimen obtained by clean catch procedure / Unknown Non-blood Collection / Unknown 08/17/2024 10:27 AM EDT 08/17/2024 5:25 PM EDT us Fredrick STEVEN LAB URINE ORDERABLES Final Res ult [facility] [address] [place] [address] * DXA BONE DENSITY STUDY 1+ SITS [...] to have osteoporosis by WHO criteria. [facility] [employer] Department of Internal Medicine recommends using National [...] alternative screening schedule based on jana Mahmood., [facility] June 18, 2011 for patients with osteopenia [...] to have osteoporosis by WHO criteria. [facility] [employer] Department of Internal Medicine recommendsusing National Osteoporosis [...] alternative screening schedule based on jana Mahmood., WAJMJanuary 2011 for patients with osteopenia (based on hip BMD T-score) is as follows: * advanced osteopenia (T scores -2.00 to -2.49), BMD testing every year * moderate osteopenia (T scores -1.50 to -1.99), BMD testing every 5years mild osteopenia or normal BMD (T scores -1.50 and higher), BMD testingevery 15 years Millicent Chapa MD [facility] DXA PROCEDURES Final Result * Hepatitis C Screening (04/03/2019) Hepatitis C Screening abstracted Historical Provider HEALTH MAINTENANCE Final Result * Pap Smear (12/29/2017) Pap smear abstracted, no interpretation [facility] Provider HEALTH MAINTENANCE Final Result * Colonoscopy (10/26/2014) Colonoscopy abstracted, no interpretation Anatomical Region Laterality Modality Other Historical Provider HEALTH MAINTENANCE Final Result * HIV Screening (02/03/2011) Pathologist [facility] HIV Screening abstracted [facility] Provider HEALTH MAINTENANCE Final Result from Last 3 Months or Most Recently Relevant to Health Maintenance Insurance [facility] Care Teams Blending Tank Tender Helper Relationship Specialty Start Date End Date Millicent Chapa MD [address] [place] [address] PCP - General 07/21/06
--- OUTSIDE RECORDS SUMMARY | 2024-09-08 03:58 | XMS_ITS | Encounter Summary ---
Author Organization [facility] Address [address] [place] [address] Care Team Providers Care Eyeglass Lens Grinder Name Role Phone Mariam Chapa MD Primary Care Provider [phone] [phone] Encounter Details Date Type Department Care Team Description 11/04/2013 Night Triage Doc Medical Records [address] [place] [address] Abstract, Provider Social History Tobacco Use Types [...] on filedocumented in this encounter Care Teams Eyeglass Lens Grinder Relationship Specialty Start Date End Date Mariam Chapa, [address] [place] [address] PCP - General 07/21/06 documented as of this encounter
--- OUTSIDE RECORDS SUMMARY | 2024-09-08 03:58 | XMS_ITS | Encounter Summary ---
Author Organization [facility] Address [address] [place] [address] Care Team Providers Care Secretary Office Clerk Name Role Phone Mariam Chapa MD Primary Care Provider [phone] [phone] Reason for Visit * Reason Onset Date Comments dizziness 05/05/2023 Encounter Details Date Type Department Care Team Description 05/05/2023 Telephone Adult Medicine - [place] [address] [place] [address] Mariam Chapa MD [address] [place] [address] dizziness Social History Tobacco Use Types Packs/Day [...] is written she can try some Pepcid [id number] * Telephone Encounter - Raman Halrey RN - 05/05/2023 11:12 AM EST Pt [...] traveled recently to another state outside of [place], [place], [place], [place], [place], [place], [place]? NO o If yes, did you [...] 3rd libertarian insurance information Date of accident/Injury: - How long has patient had these symptoms?: few days PCP: Millicetn Chapa Payor: BIN/FRANNIE POS / Plan: PPO $[id number] [place] [id number] / Product Type: PPO [id number] documented in this encounter Plan of Treatment Not on file documented as of this encounter Visit Diagnoses Not on filedocumented in this encounter Care Teams Secretary Office Clerk Relationship Specialty Start Date End Date Mariam Chapa MD [facility] [place] [address] PCP - General 07/21/06 documented as of this encounter
--- OUTSIDE RECORDS SUMMARY | 2024-09-08 03:58 | XMS_ITS | Encounter Summary ---
Author Organization [facility] Address [address] [place] [address] Care Team Providers Care Farmworker Livestock Name Role Phone Mariam Chapa MD Primary Care Provider [phone] [phone] Reason for Visit * Reason Onset Date Comments TEST RESULTS 10/03/2013 Encounter Details Date Type Department Care Team Description 10/03/2013 Telephone Adult Medicine - [place] [address] [place] [address] Mariam Chapa MD [address] [place] [address] TEST RESULTS Social History Tobacco Use Types Packs/Day Years Used Date Smoking Tobacco: Never Alcohol Use Standard Drinks/Week Comments No 0 (1 standard drink = 0.6 oz pur e alcohol) Sex Assigned at Date Recorded Not on file Job Start Date Occupation Industry Not on file Not on file Not on file documented as of this encounter Miscellaneous Notes * Telephone Encounter - Nereida Heck M.A. - 10/04/2013 11:38 AM EDT No This was one of the calls from 10/03/13 before i spoke to pt to let her know youd call her at the end of the day. * Telephone Encounter - Mariam Chapa MD - 10/04/2013 11:06 AM EDT I talked to patient yesterday is this a new call * Telephone Encounter - Mariam Chapa MD - 10/03/2013 2:09 PM EDT Will call patient at the end of the days I have a really busy schedule today * Telephone Encounter - Nereida Heck M.A. - 10/03/2013 10:35 AM EDT Pt would like to speak to ximena about MRI results. Thank you documented in this encounter Plan of Treatment Not on file documented as of this encounter Visit Diagnoses Not on filedocumented in this encounter Care Teams Farmworker Livestock Relationship Specialty Start Date End Date Mariam Chapa MD [facility] [place] [address] PCP - General 07/21/06 documented as of this encounter
--- OUTSIDE RECORDS SUMMARY | 2024-09-08 03:58 | XMS_ITS | Encounter Summary ---
Author Organization [facility] Address [address] [place] [address] Care Team Providers Care Political Scientist Name Role Phone Mariam Chapa MD Primary Care Provider [phone] [phone] Encounter Details Date Type Department Care Team Description 07/16/2011 Welfare Worker Report Medical Records [address] [place] [address] Vinnie Sprague Social History Tobacco Use Types [...] on filedocumented in this encounter Care Teams Political Scientist Relationship Specialty Start Date End Date Mariam Chapa, [address] [place] [address] PCP - General 07/21/06 documented as of this encounter
--- OUTSIDE RECORDS SUMMARY | 2024-09-08 03:58 | XMS_ITS | Encounter Summary ---
Author Organization [facility] Address [address] [place] [address] Care Team Providers Care Machine Cementer And Folder Name Role Phone Mariam Chapa MD Primary Care Provider [phone] [phone] Encounter Details Date Type Department Care Team Description 02/18/2023 Air Force Pilot Report Medical Records [address] [place] [address] Lucas Enriquez MD Social History Tobacco Use Types Packs/Day [...] on filedocumented in this encounter Care Teams Machine Cementer And Folder Relationship Specialty Start Date End Date Mariam Chapa MD [address] [place] [address] PCP - General 07/21/06 documented as of this encounter
--- OUTSIDE RECORDS SUMMARY | 2024-09-08 03:58 | XMS_ITS | Encounter Summary ---
Author Organization [facility] Address [address] [place] [address] Care Team Providers Care Chemical Weigher Name Role Phone Mariam Chapa MD Primary Care Provider [phone] [phone] Encounter Details Date Type Department Care Team Description 01/05/2012 Home Health Certification Medical Records [address] [place] [address] Abstract, Provider Social History Tobacco Use Types [...] on filedocumented in this encounter Care Teams Chemical Weigher Relationship Specialty Start Date End Date Mariam Chapa, [address] [place] [address] PCP - General 07/21/06 documented as of this encounter
--- OUTSIDE RECORDS SUMMARY | 2024-09-08 03:58 | XMS_ITS | Encounter Summary ---
Author Organization [facility] Address [address] [place] [address] Care Team Providers Care Health Sciences Dean Name Role Phone Mariam Chapa MD Primary Care Provider [phone] [phone] Encounter Details Date Type Department Care Team Description 08/03/2017 Millinery Salesperson Report Medical Records [address] [place] [address] Jesus Alberto Tomlinson Social History Tobacco Use Types Packs/Day Years [...] on filedocumented in this encounter Care Teams Health Sciences Dean Relationship Specialty Start Date End Date Mariam Chapa MD [address] [place] [address] PCP - General 07/21/06 documented as of this encounter
--- OUTSIDE RECORDS SUMMARY | 2024-09-08 03:58 | XMS_ITS | Encounter Summary ---
Author Organization [facility] Address [address] [place] [address] Care Team Providers Care Computer Aide Name Role Phone Mariam Chapa MD Primary Care Provider [phone] [phone] Encounter Details Date Type Department Care Team Description 01/28/2012 Electrical Maintenance Mechanic Report Medical Records [address] [place] [address] Daniel Rincon Social History Tobacco Use Types [...] filedocumented in this encounter Care Teams Computer Aide Relationship Specialty Start Date End Date Mariam Chapa, [address] [place] [address] PCP - General 07/21/06 documented as of this encounter
--- OUTSIDE RECORDS SUMMARY | 2024-09-08 03:58 | XMS_ITS | Encounter Summary ---
Author Organization [facility] Address [address] [place] [address] Care Team Providers Care Milking Worker Name Role Phone Mariam Chapa MD Primary Care Provider [phone] [phone] Reason for Visit * Reason Onset Date Comments hospital follow up 09/12/2018 Encounter Details Date Type Department Care Team Description 09/12/2018 Telephone Adult Medicine - [place] [address] [place] [address] Mariam Chapa MD [address] [place] [address] hospital follow up Social History Tobacco Use Types [...] encounter Miscellaneous Notes * Telephone Encounter - Presley Shelton M.A. - 09/13/2018 12:33 PM EDT Notes and discharge requested. * Telephone Encounter - Raman Harley LPN - 09/13/2018 9:35 AM EDT Pt advised that there are no sooner appointment , pt was advised to go to the er if sx worsen , pt agreed Pt would like pcp to review discharge and call her * Telephone Encounter - Mariam Chapa MD - 09/13/2018 9:05 AM EDT No appointments to day or tomorrow with an MD? * Telephone Encounter - Raman Harley LPN - 09/13/2018 8:56 AM EDT Only sooner appointment is a pre op on 09/16/18Wednesday , is it all right to schedule pt there , anddo you want to order blood test not sure on what , maybe cbc * Telephone Encounter - Carolina Day - 09/13/2018 8:50 AM EDT Pt states she needs something sooner- pain in chest and belly. Feels she needs labs ordered today and needs an appointment today or tomorrow. * Telephone Encounter - Raman Harley LPN - 09/12/2018 2:19 PM EDT Appointment scheduled with Dr Chapa on 09/20/18 pt was seen at [facility] , please obtain records * Telephone Encounter - Allen Goode - 09/12/2018 2:03 PM EDT Hospital follow up appointment needed Hospital patient was treated at: [facility] Was this only an ER visit or was the patient admitted to the hospital? Admitted to hospital Date of visit if ER visit only: N/A If patient was admitted what was the date of discharge? 09/10-09/12 Reason/diagnosis for visit or stay: belly pain When was the patient told to follow up? Was visit or stay related to an injury? NO If yes, what was the date of injury (DOI)? N/A If yes, was the injury due to N/A documented in this encounter Plan of Treatment Not on file documented as of this encounter Visit Diagnoses Not on filedocumented in this encounter Care Teams Milking Worker Relationship Specialty Start Date End Date Mariam Chapa MD [address] [place] [address] PCP - General 07/21/06 documented as of this encounter
--- OUTSIDE RECORDS SUMMARY | 2024-09-08 03:58 | XMS_ITS | Encounter Summary ---
Author Organization [facility] Address [address] [place] [address] Care Team Providers Care Sandwich Wrapper Name Role Phone Mariam Chapa MD Primary Care Provider [phone] [phone] Reason for Visit * Reason Onset Date Comments Provider Call Back 06/19/2013 Encounter Details Date Type Department Care Team Description 06/19/2013 Telephone Adult Medicine - [place] [address] [place] [address] Mariam Chapa MD [address] [place] [address] Provider Call Back Social History Tobacco Use [...] on filedocumented in this encounter Care Teams Sandwich Wrapper Relationship Specialty Start Date End Date Mariam Chapa MD [facility] [place] [address] PCP - General 07/21/06 documented as of this encounter
--- OUTSIDE RECORDS SUMMARY | 2024-09-08 03:58 | XMS_ITS | Encounter Summary ---
Author Organization [facility] Address [address] [place] [address] Care Team Providers Care Manager Epic Name Role Phone Mariam Chapa MD Primary Care Provider +1 -[phone] Reason for Referral * EXTERNAL (Routine) - Authorized/Booked Specialty Diagnoses / Procedures Referred By Contac t Referred To Contact ORTHOPEDICS / Orthopedic Procedures REFERRAL TO ORTHOPEDICS (OUT OF NETWORK) Mariam Chapa MD [address] [place], [place] Default, Provider Referral ID Status Reason Start Date Expiration Date V isits Requested Visits Authorized [id number] Authorized/B ooked 08/30/2023 08/29/2024 1 1 Reason for Visit * Reason Onset Date Comments Medical Records Supervisor Feedback 08/26/2023 Jesus Alberto MENDEZ [phone] Encounter Details Date Type Department Care Team Description 08/26/2023 Telephone Adult Medicine - [place] [address] [place] [address] Mariam Chapa MD [address] [place] [address] Medical Records Supervisor Feedback (Jesus Alberto MENDEZ [id number]) Social History Tobacco Use Types Packs/Day Years [...] Telephone Encounter - Mariam Chapa MD - 08/30/2023 9:05 PM EDT Order signed * Telephone Encounter - Viviana Alvarado - 08/29/2023 8:[address] Millicent Chapa Please review this patients new referral request. The referral has been pended. Please complete thefollowing: If approved> sign order If denied>please give instructions and route to your practice nursing pool. Practice nurse should inform referrals and the patient if denied. Thanks, Viviana Referrals Packing And Shipping Clerk * Telephone Encounter - Chun Bassettfrank - 08/26/2023 10:06 AM EDT What insurance does the patient have today? Workers Comp Effective 02/28/09: BCBS will not retro referral [...] insurance must be obtained and registered in [facility] or their referral can not be processed. Is this a retro request? NO. If yes for what date of service do you need the retro referral? N/A Who is calling to request this referral? The patient If the caller is not the patient, what is their name? N/A Ask the patient WHO referred them to this specialty: Patient self referred FIRST and LAST NAME of SPECIALIST PATIENT is seeing: Chilango Walsh What specialty is this? Orthopedic Surgeon DIAGNOSIS Patient is being seen for (Not a body part or a procedure): Knee Have you seen this SPECIALIST for this PROBLEM/DX before?NO If YES, when: Have you checked REVIEW or the APPT DESK to see if this referral has already been done or has visits left? YES Is this visit:Initial Visit Address of Specialist: [address] [place] [address] [address], [place] [address] Phone # of Specialist: [phone] Fax #: (if applicable): Does patient have an appointment scheduled?: NO Date of appointment- (including a retro-request): Is this appointment related to: Surgery documented in this encounter Plan of Treatment Not on file documented as of this encounter Visit Diagnoses Not on filedocumented in this encounter Care Teams Manager Epic Relationship Specialty Start Date End Date Mariam Chapa MD [address] [place] [id number] PCP - General 07/21/06 documented as of this encounter
--- OUTSIDE RECORDS SUMMARY | 2024-09-08 03:58 | XMS_ITS | Encounter Summary ---
[facility] Address [address] [place] [address] Care Team Providers Care Office Engineer Name Role Phone Mariam Chapa MD Primary Care Provider [phone] [phone] Encounter Details Date Type Department Care Team Description 03/16/2012 Anthropometrist Report Medical Records [address] [place] [address] Darrell Smith Social History Tobacco Use Types Packs/Day Years [...] on filedocumented in this encounter Care Teams Office Engineer Relationship Specialty Start Date End Date Mariam Chapa MD [address] [place] [address] PCP - General 07/21/06 documented as of this encounter
--- OUTSIDE RECORDS SUMMARY | 2024-09-08 03:58 | XMS_ITS | Encounter Summary ---
[facility] Address [address] [place] [address] Care Team Providers Care Metal Miner Blasting Name Role Phone Mariam Chapa MD Primary Care Provider [phone] [phone] Encounter Details Date Type Department Care Team Description 11/03/2013 Night Triage Doc Medical Records [address] [place] [address] Abstract, Provider Social History Tobacco Use Types [...] on filedocumented in this encounter Care Teams Metal Miner Blasting Relationship Specialty Start Date End Date Mariam Chapa, [address] [place] [address] PCP - General 07/21/06 documented as of this encounter
--- OUTSIDE RECORDS SUMMARY | 2024-09-08 03:58 | XMS_ITS | Encounter Summary ---
Author Organization [facility] Address [address] [place] [address] Care Team Providers Care Car Icer Name Role Phone Mariam Chapa MD Primary Care Provider +1 [phone] Encounter Details Date Type Department Care Team Description 05/28/2011 Hogshead Liner Report Medical Records [address] [place] [address] Vinnie Sprague Social History Tobacco Use Types [...] on filedocumented in this encounter Care Teams Car Icer Relationship Specialty Start Date End Date Mariam Chapa, [address] [place] [address] PCP - General 07/21/06 documented as of this encounter
--- OUTSIDE RECORDS SUMMARY | 2024-09-08 03:58 | XMS_ITS | Encounter Summary ---
Author Organization [facility] Address [address] [place] [address] Care Team Providers Care Prototype Engineer Name Role Phone Mariam Chapa MD Primary Care Provider [phone] [phone] Reason for Visit * Reason Onset Date Comments Letter 03/04/2021 Encounter Details Date Type Department Care Team Description 03/04/2021 Telephone Adult Medicine - [place] [address] [place] [address] Mariam Chapa MD [address] [place] [address] Letter Social History Tobacco Use Types Packs/Day [...] encounter Miscellaneous Notes * Telephone Encounter - Cmailla Nolan M.A. - 03/05/2021 1:52 PM EDT Will advise patient when she comes in to case picker letter in office at 3pm. * Telephone Encounter - Mariam Chapa MD - 03/05/2021 1:45 PM EDT 2 weeks * Telephone Encounter - Camilla Nolan M.A. - 03/05/2021 1:[address] Cruz, please sign new pended letter on your desk. Patient states she does not need to be exempt from tuberculosis, only Hep B and TDAP. Patient also is asking when she can get her covid shot. She completed a tapered steroid dose concluded this past Wednesday. Please advise, thank you. * Telephone Encounter - Mariam Chapa MD - 03/04/2021 4:12 PM EDT Tdap tetanus and pneumonia done letter of exemption the Covid vaccine cannot be done * Telephone Encounter - Tori Guevara M.A. - 03/04/2021 2:59 PM EDT Pended letter of exeption for vaccines. Please print and sign Thank you in advance * Telephone Encounter - Vilma Hector - 03/04/2021 8:55 AM EDT Letter requested for: Place of employment Reason for letter: updated letter for exemption of tdap and hep b Specific notations needed in body of letter: See above Date needed for completion: juan When completed: Will case picker-call when completed: Tel # [phone] documented in this encounter Plan of Treatment Not on file documented as of this encounter Visit Diagnoses Not on filedocumented in this encounter Care Teams Prototype Engineer Relationship Specialty Start Date End Date Mariam Chapa, [address] [place] [address] PCP - General 07/21/06 documented as of this encounter
--- OUTSIDE RECORDS SUMMARY | 2024-09-08 03:58 | XMS_ITS | Encounter Summary ---
Author Organization [facility] Address [address] [place] [address] Care Team Providers Care Lead Esthetician Name Role Phone Mariam Chapa MD Primary Care Provider [phone] [phone] Encounter Details Date Type Department Care Team Description 03/12/2021 Orders Only Adult Medicine - [place] [address] [place] [address] Mariam Chapa MD [address] [place] [address] Polymyalgia (HCC) Social History Tobacco Use Types [...] NON-AUTO (03/11/2021) 03/11/2021 Mariam Chapa MD [facility] documented in this encounter Visit Diagnoses Diagnosis Polymyalgia (HCC) Polymyalgia rheumatica documented in this encounter Care Teams Lead Esthetician Relationship Specialty Start Date End Date Mariam Chapa, [address] [place] [address] PCP - General 07/21/06 documented as of this encounter
--- OUTSIDE RECORDS SUMMARY | 2024-09-08 03:58 | XMS_ITS | Encounter Summary ---
Author Organization [facility] Address [address] [place] [address] Care Team Providers Care Surgical Coordinator Name Role Phone Mariam Chapa MD Primary Care Provider +1 [phone] Encounter Details Date Type Department Care Team Description 06/02/2013 Night Triage Doc Medical Records [address] [place] [address] Abstract, Provider Social History Tobacco Use Types [...] on filedocumented in this encounter Care Teams Surgical Coordinator Relationship Specialty Start Date End Date Mariam Chapa, [address] [place] [address] PCP - General 07/21/06 documented as of this encounter
--- OUTSIDE RECORDS SUMMARY | 2024-09-08 03:58 | XMS_ITS | Encounter Summary ---
[facility] Address [address] [place] [address] Care Team Providers Care Marketing Assistant Name Role Phone Mariam Chapa MD Primary Care Provider [phone] [phone] Encounter Details Date Type Department Care Team Description 09/02/2013 Orders Only Adult Medicine - [place] [address] [place] [address] Mariam Chapa MD [address] [place] [address] Diarrhea (Primary Dx) Social History Tobacco Use Types [...] as of this encounter Visit Diagnoses Diagnosis Diarrhea- Primary documented in this encounter Care Teams Marketing Assistant Relationship Specialty Start Date End Date Mariam Chapa MD [address] [place] [address] PCP - General 07/21/06 documented as of this encounter
--- OUTSIDE RECORDS SUMMARY | 2024-09-08 03:58 | XMS_ITS | Encounter Summary ---
[facility] Address [address] [place] [address] Care Team Providers Care Tool Checker Name Role Phone Mariam Chapa MD Primary Care Provider +1 [phone] Encounter Details Date Type Department Care Team Description 11/05/2013 Abstract Medical Records [address] [place] [address] Abstract, Provider Social History Tobacco Use Types [...] filedocumented in this encounter Care Teams Tool Checker Relationship Specialty Start Date End Date Mariam Chapa MD [address] [place] [address] PCP - General 07/21/06 documented as of this encounter
--- OUTSIDE RECORDS SUMMARY | 2024-09-08 03:58 | XMS_ITS | Encounter Summary ---
Author Organization [facility] Address [address] [place] [address] Care Team Providers Care Reporting Specialist Name Role Phone Mariam Chapa MD Primary Care Provider [phone] [phone] Encounter Details Date Type Department Care Team Description 12/16/2018 Bank Reconciliator Report Medical Records [address] [place] [address] Vincenzo Mc MD Social History Tobacco Use [...] on filedocumented in this encounter Care Teams Reporting Specialist Relationship Specialty Start Date End Date Mariam Chapa MD [address] [place] [address] PCP - General 07/21/06 documented as of this encounter
--- OUTSIDE RECORDS SUMMARY | 2024-09-08 03:58 | XMS_ITS | Encounter Summary ---
Author Organization [facility] Address [address] [place] [address] Care Team Providers Care Canvass Manager Name Role Phone Mariam Chapa MD Primary Care Provider [phone] [phone] Encounter Details Date Type Department Care Team Description 10/26/2013 Telephone Adult Medicine - [place] [address] [place] [address] Mariam Chapa MD [address] [place] [address] Social History Tobacco Use Types Packs/Day Years [...] Telephone Encounter - Mariam Chapa MD - 10/30/2013 9:59 AM EDT Noted will look out for them * Telephone Encounter - Selin Gamez R.N. - 10/26/2013 11:23 AM EDT Note and lab work received. * Telephone Encounter - Selin Gamez R.N. - 10/26/2013 10:09 AM EDT Pt advised that pcp will not be back till Wednesday. She will ask Dr Fritz's office to fax lab work here. * Telephone Encounter - Kennedi Bird - 10/26/2013 9:48 AM EDT Symptoms patient is presenting: pt states she was seen by a Drilling Fluids Specialist in [place] and ordered blood work.. She said her sed rate was elevated and would like to speak with Dr. Eden about it. How long has patient had these symptoms?: PCP: Millicent Chapa Payor: BIN/FRANNIE POS Plan: POS $15 MIRANDA [id number] Product Type: POS [id number] documented in this encounter Plan of Treatment Not on file documented as of this encounter Visit Diagnoses Not on filedocumented in this encounter Care Teams Canvass Manager Relationship Specialty Start Date End Date Mariam Chapa MD [address] [place] [address] PCP - General 07/21/06 documented as of this encounter
--- OUTSIDE RECORDS SUMMARY | 2024-09-08 03:58 | XMS_ITS | Encounter Summary ---
Author Organization [facility] Address [address] [place] [address] Care Team Providers Care Crane Ladle Person Name Role Phone Mariam Chapa MD Primary Care Provider +1 [phone] Encounter Details Date Type Department Care Team Description 07/03/2011 Track Helper Report Medical Records [address] [place] [address] Social History Tobacco Use Types Packs/Day Years [...] on filedocumented in this encounter Care Teams Crane Ladle Person Relationship Specialty Start Date End Date Mariam Chapa MD [address] [place] [address] PCP - General 07/21/06 documented as of this encounter
--- OUTSIDE RECORDS SUMMARY | 2024-09-08 03:58 | XMS_ITS | Encounter Summary ---
Author Organization [facility] Address [address] [place] [address] Care Team Providers Care Business Process Analyst Name Role Phone Mariam Chapa MD Primary Care Provider [phone] [phone] Reason for Visit * Reason Onset Date Comments TEST RESULTS 12/19/2013 Encounter Details Date Type Department Care Team Description 12/19/2013 Telephone Adult Medicine - [place] [address] [place] [address] Mariam Chapa MD [address] [place] [address] TEST RESULTS Social History Tobacco Use Types [...] Telephone Encounter - Mariam Chapa MD - 12/19/2013 6:02 PM EDT [phone] (home) [phone] (work) Left message that test results were normal * Telephone Encounter - Nereida Heck M.A. - 12/19/2013 3:06 PM EDT Please review. Thank you * Telephone Encounter - Gabby Smallwood - 12/19/2013 2:54 PM EDT Inform patient: ANY URGENT OR ABNORMAL RESULTS WIILL RESULT IN A CALL BACK TO THE PATIENT EDUIN. Type of test: :lab Date test was performed: 12-18-2013 Where was the test performed: [facility] Who ordered this test?: Millicent Chapa Is the doctor here today?: YES Can [...] filedocumented in this encounter Care Teams Business Process Analyst Relationship Specialty Start Date End Date Mariam Chapa MD [facility] [place] [address] PCP - General 07/21/06 documented as of this encounter
--- NOTE | 2024-09-08 04:36 | ED.LOWEXIN ---
HPI - Extremity Injury (Lower) General Chief Complaint: Extremity Injury, Lower Stated Complaint: pain swelling lower extremities Time Seen by Provider: 09/08/24 04:29 Source: patient Mode of arrival: ambulatory Limitations: no limitations History of Present Illness ED Provider: Dr. Sameera Colmenares HPI Narrative: Patient comes to the emergency room complaining of acute on chronic left lower extremity pain. Several months ago, in December of 2023, patient had a tibial plateau fracture. Patient states that since then, she has had multiple episodes of acute on chronic pain. Patient believes that there might be some nerve entrapment. Patient has been seen by a small lot operator, has tried physical therapy. Patient states that she chronically takes hydromorphone and is trying to wean herself off of it. Patient states that today he feels more like an inflammatory kind of pain, patient requesting a dose of Toradol. Patient denies any new injuries Related Data Home Medications ?Medication ?Instructions ?Recorded ?Confirmed albuterol sulfate 90 mcg/actuation 2 puff inhalation Q4-6H PRN 04/07/22 08/18/24 aerosol inhaler SOB/Wheezing Previous Rx's ?Medication ?Instructions ?Recorded acetaminophen 650 mg/20.3 mL oral 650 mg (20.3 mL) PO Q4H PRN 02/01/24 solution moderate pain #0 mL lorazepam 0.5 mg tablet (Ativan) 0.5 mg PO TID PRN anxiety #7 tabs 02/01/24 polyethylene glycol 3350 17 gram 17 g PO DAILY PRN constipation #0 02/01/24 oral powder packet ea diclofenac sodium 1 % topical gel 4 g topical QID 30 days #100 grams 07/13/24 (Arthritis Pain (diclofenac)) ondansetron 4 mg disintegrating 4 mg PO Q8H PRN nausea and 07/13/24 tablet vomiting #7 tabs pregabalin 25 mg capsule 25 mg PO TID 30 days #90 caps 07/13/24 ketorolac 10 mg tablet 10 mg PO BID PRN pain #10 tabs 09/08/24 Allergies Allergy/AdvReac Type Severity Reaction Status Date / Time gluten [Gluten] Allergy Severe PT HAS Verified 09/07/24 23:03 CELIAC DISEASE Sulfa (Sulfonamide Allergy Severe LUPUS-LIKE Verified 09/07/24 23:03 Antibiotics) benztropine [Cogentin] Allergy Intermediate Rash Verified 09/07/24 23:03 ciprofloxacin [From Cipro] Allergy Intermediate TENDONOPATH Verified 09/07/24 23:03 Y/NEUROPATH Y shellfish derived Allergy Intermediate Hives Verified 09/07/24 23:03 promethazine Allergy Unknown Unknown Verified 09/07/24 23:03 nitrofurantoin AdvReac Severe Drug Verified 09/07/24 23:03 [From Macrodantin] induced Hep Mandelamine Allergy Intermediate Drug Uncoded 07/03/24 12:54 induced Hep QUINOLONES Allergy Intermediate Unknown Uncoded 07/03/24 12:54 Review of Systems Review of Systems: Constitutional : No Weight loss, No Fever, No Chills, No Night Sweats, No Fatigue, No Malaise ENT/Mouth : No Hearing loss, No Ear Pain, No Nasal Congestion, No Sinus Pain, No Hoarseness, No sore throat, No Rhinorrhea, No Swallowing Difficulty Eyes: No Eye Pain, No Swelling, No Redness, No Foreign Body, No Discharge, No Vision Changes Cardiovascular : No Chest Pain, No SOB, No Dyspnea on Exertion, No Orthopnea, No Edema, No Palpitations Respiratory : No Cough, No Sputum, No Wheezing, No Smoke Exposure, No Dyspnea Gastrointestinal : No Nausea, No Vomiting, No Diarrhea, No Constipation, No abdominal Pain, No Hematochezia, No Melena Genitourinary : no irregular bleeding, No Dysuria, No Urinary Frequency, No Hematuria, No Urinary Incontinence, No Urgency, No Flank Pain, No Urinary Flow Changes, No Hesitancy Musculoskeletal : Patient complaining of acute on chronic left lower extremity pain especially around the knee area. 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 use Undifferentiated connective tissue disease Rheumatoid factor positive Post-COVID chronic cough Neuropathy Asthma Diverticulosis Kidney stone Celiac sprue Surgical History H/O cystoscopy S/P cardiac cath (~07/2020) Hx of excision of mass (~1999) Family History Family History Mother Cervical cancer Uterine cancer History of thyroid disorder Maternal Grandmother Diabetes Stroke Maternal Grandfather Diabetes Coronary artery disease Paternal Grandmother Uterine cancer Diabetes Stroke Paternal Grandfather Stroke Father Bladder cancer Social History Social History Household Members: Spouse Household Members Other:: Son Alcohol intake: never Patient Tobacco Use Status: Never used Tobacco Smoked in Last 30 Days: No Use of substances other than those prescribed or required for medical reasons: No Advance Directives: Yes Advance Directives Information Provided: Yes Advance Directives on File: No Advance Directives Date on File: 04/27/22 Do you have a plan to hurt others: No Plan Patient : No service: No 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 Oriented X3. No acute distress. Eyes: Pupils equal, round and reactive to light. ENT: Pharynx normal. Neck: Normal inspection. Neck supple. No lymph nodes noted. No crepitus CVS: Normal heart rate and rhythm. Pulses normal. Normal S1 and S2 Respiratory: No respiratory distress. Breath sounds normal. No Wheezing. No rales Abdomen: Soft and nontender. No rigidity. No distention. Skin: Skin warm and dry. Normal skin color. Normal skin turgor. Extremities: No lower extremity edema. No Lacerations. No obvious knee effusion. No pain to palpation over the calf, no edema Neuro: Oriented X 3. No motor deficit. No sensory deficit. Moving all extremities. No slurred speech. CN 2 through 12 grossly intact Psych: calm, cooperative, normal affect Medical Decision Making Medical Decision Making MDM Narrative: X-ray of the knee does not show any acute abnormality Patient requesting IV Toradol which sounds reasonable. Patient states that she has an appointment coming with her small lot operator. Independent Interpretation I performed an independent interpretation of an: Plain X-Ray Radiology Impression Discussion of test interpretation with radiology: I have reviewed the radiologist's reading. Radiologist Impression: Osteopenia. No acute fracture or dislocation. No joint effusion. No radiopaque foreign body Discharge Plan Discharge Clinical Impression: Acute knee pain Patient Disposition: Home, Self-Care Instructions: Arthralgia (ED) Additional Instructions: Please follow-up with your primary care physician tomorrow. If you have any worsening or new symptoms, please return to the emergency room or call 911 Prescriptions: New ketorolac 10 mg tablet 10 mg PO BID PRN (Reason: pain) Qty: 10 0RF No Action acetaminophen 650 mg/20.3 mL Solution 650 mg PO Q4H PRN (Reason: moderate pain) Qty: 0 0RF polyethylene glycol 3350 17 gram Powder In Packet 17 g PO DAILY PRN (Reason: constipation) Qty: 0 0RF lorazepam [Ativan] 0.5 mg tablet 0.5 mg PO TID PRN (Reason: anxiety) Qty: 7 0RF albuterol sulfate 90 mcg/actuation HFA aerosol inhaler 2 puff inhalation Q4-6H PRN (Reason: SOB/Wheezing) ondansetron 4 mg tablet,disintegrating 4 mg PO Q8H PRN (Reason: nausea and vomiting) Qty: 7 0RF diclofenac sodium [Arthritis Pain (diclofenac)] 1 % gel 4 g topical QID 30 Days Qty: 100 3RF Rx Instructions: apply to bilateral knee pregabalin 25 mg capsule 25 mg PO TID 30 Days Qty: 90 1RF Print Language: Botswanan
[2024-09-08] MEDS: Ketorolac Tromethamine 30 MG/ML VIAL IVPUSH (04:42)
[2024-09-08 04:52] VITALS: BP 115/69; PULSE 71; RESP 16; TEMP 36.7; O2SAT 100
--- NOTE | 2024-09-08 05:08 | PC.NURSE ---
Patient medicated per MAR.
== END 2024-09-08 08:14 | disposition home or self-care (01) ==
PROVIDERS: Emergency Provider Emergency Medicine; PCP Internal Medicine
DX: M25.562 Pain in left knee (principal); G89.29 Other chronic pain; Z79.899 Other long term (current) drug therapy
CPT/HCPCS: 73564; 96374; 99284; J1885

== ENCOUNTER → 2024-09-07 23:35 | Outpatient (BNV) | payer BC, SELFPAY | PROVIDERS: PCP Internal Medicine; Visit Provider Radiology Diagnostic Radiology | DX: M25.562 Pain in left knee (principal) | CPT/HCPCS: 73564 ==

== ENCOUNTER 2024-09-08 10:29 | Outpatient (AMB) | payer BC, SELFPAY ==
--- NOTE | 2024-09-08 10:31 | A.OFFVIS_ITS ---
Vital Signs 09/08/24 10:33 Height 5 ft Weight 95 lb BMI 18.6 BP 126/56 L Blood Pressure Location Lt brachial Position Sitting Respiration 16 Pulse 83 Pulse Source Pulse Oximeter Pulse Oximetry (%) 94 Oxygen Delivery Method Room Air Intake Visit Reasons: Left heel pain/ref to Dr celina hi seen by Janis 2021 Rural Mail Contractor Required: No Allergies gluten [Gluten] Allergy (Severe, Verified 09/14/24 20:38) PT HAS CELIAC DISEASE morphine Allergy (Severe, Verified 09/14/24 20:38) itching/rash Sulfa (Sulfonamide Antibiotics) Allergy (Severe, Verified 09/14/24 20:38) LUPUS-LIKE benztropine [Cogentin] Allergy (Intermediate, Verified 09/14/24 20:38) Rash ciprofloxacin [From Cipro] Allergy (Intermediate, Verified 09/14/24 20:38) TENDONOPATHY/NEUROPATHY shellfish derived Allergy (Intermediate, Verified 09/14/24 20:38) Hives promethazine Allergy (Unknown, Verified 09/14/24 20:38) Unknown nitrofurantoin [From Macrodantin] Adverse Reaction (Severe, Verified 09/14/24 20:38) Drug induced Hep Mandelamine Allergy (Intermediate, Uncoded 09/08/24 10:40) Drug induced Hep QUINOLONES Allergy (Intermediate, Uncoded 09/08/24 10:40) Unknown tramadol Adverse Reaction (Severe, Uncoded 09/08/24 10:40) hand/feet buzzing Medication List - Last Reconciled 09/08/24 by Jane Pizarro LPN acetaminophen 650 mg (20.3 mL) PO Q4H PRN albuterol sulfate 90 mcg/actuation 2 puffs inhalation Q4-6H PRN diclofenac sodium 1% (Arthritis Pain (diclofenac)) 4 grams topical QID 30 days hydromorphone 2 mg PO TID ibuprofen 400 mg PO Q8H PRN lidocaine 5% 1 patch topical DAILY lorazepam (Ativan) 0.5 mg PO TID PRN ondansetron 4 mg PO Q8H PRN polyethylene glycol 3350 17 grams PO DAILY PRN HPI HPI Left heel pain/ref to Dr celina hi seen by Janis 2021: Details: History of Present Illness The patient is a 63-year-old female presenting with chronic left lower extremity pain. Initially, the left tibial plateau fracture was managed conservatively with non-weightbearing for five months after she tripped on a sheet in December 2023. Post-injury symptoms included stabbing pain, burning, numbness, and swelling, affecting daily life and sleep. A setback occurred in May 2024 during physical therapy, leading to buckling of the knee and worsening pain. Imaging indicated a faded meniscus but no further issues. Despite conservative treatment, severe pain persists, aggravated by movement and cold. An EMG showed mild peroneal nerve entrapment. She experiences swelling post-activity. Possible undifferentiated connective tissue disorder has been explored due to inconclusive autoimmune markers. Osteoporosis, untreated, remains a concern. Pain Description - Onset and Timing: Began in December 2023, chronic in nature following left tibial plateau fracture. - Quality: Aching, stabbing sensation with burning and pins and needles. - Primary Location: Left leg - knee, ankle, heel. - Radiation: Numbness to the lateral side of the left ankle and foot. - Aggravating Factors: Movement, cold application. - Relieving Factors: Heat application. - Pain Level: 8/10 intensity throughout the day, improving to 6/10 in morning. - Interference: Sleep disturbances, limits daily activities, affects her functional capacity. Physical Exam - Appears afebrile. - Alert and oriented. - Mood and affect appropriate. - Follows and participates in conversation appropriately. - Respiratory effort is unlabored. Results - Imaging: - May 2024 CT and MRI: Faded left lateral meniscus; otherwise unremarkable. - EMG: Mild left lateral ankle peroneal nerve entrapment. Pain Management - Affect: Pain significantly impacts activities and sleep. - Analgesia: Using hydromorphone, with goal to discontinue. Pain described as 8/10. - Adverse Effects: Stomach issues with NSAIDs; edema associated with NSAID use. - Activities of Daily Living: Limited by pain; unable to work comfortably. - Aberrant Drug Related Behaviors: Concerns about hydromorphone dependency; patient uses sparingly and is wary of addiction. 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 Undifferentiated connective tissue disease Rheumatoid factor positive Post-COVID chronic cough Neuropathy Asthma Diverticulosis Kidney stone Celiac sprue Surgical History H/O cystoscopy S/P cardiac cath (~07/2020) Hx of excision of mass (~1999) Family History Mother Cervical cancer Uterine cancer History of thyroid disorder Maternal Grandmother Diabetes Stroke Maternal Grandfather Diabetes Coronary artery disease Paternal Grandmother Uterine cancer Diabetes Stroke Paternal Grandfather Stroke Father Bladder cancer Social History Household Members: Spouse Household Members Other:: Son Alcohol intake: never Patient Tobacco Use Status: Never used Tobacco Advance Directives: Yes Advance Directives on File: Yes Advance Directives Date on File: 04/27/22 Do you have a plan to hurt others: No Plan service: No 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[employer] Physical Exam Vital Signs: Last Vital Signs Pulse 83 09/08/24 10:33 Resp 16 09/08/24 10:33 BP 126/56 L 09/08/24 10:33 Pulse Ox 94 09/08/24 10:33 Oxygen Delivery Method Room Air 09/08/24 10:33 BMI result Body Mass Index 18.6 Assessment & Plan Assessment & Plan (1) Bilateral ankle pain: Code(s): M25.571 - Pain in right ankle and joints of right foot; M25.572 - Pain in left ankle and joints of left foot Category: Medical Qualifiers: Chronicity: unspecified Qualified Code(s): M25.571 - Pain in right ankle and joints of right foot; M25.572 - Pain in left ankle and joints of left foot (2) Peroneal neuropathy: Code(s): G57.30 - Lesion of lateral popliteal nerve, unspecified lower limb Category: Medical Qualifiers: Laterality: left Qualified Code(s): G57.32 - Lesion of lateral popliteal nerve, left lower limb (3) Knee pain: Code(s): M25.569 - Pain in unspecified knee Category: Medical (4) Acute pain of left lower extremity: Code(s): M79.605 - Pain in left leg Category: Medical Plan Plan To address the persistent and severe pain in the left lower extremity, which appears to have some features consistent with CRPS, a lumbar sympathetic block was discussed to evaluate and exclude possible CRPS. MRI may also help assess potential anatomical issues, while continued physical therapy will aid functional recovery. Non-opioid pain management alternatives are recommended, especially given adverse NSAID effects and hydromorphone dependency concerns. Consider osteoporosis treatment for systemic improvement. Additional diagnostic and management strategies will be guided by upcoming MRI findings and patient response to interventions. Patient was informed and verbally consented to the use of an ambient scribe for clinic note documentation during this visit. Discussion Notes During our discussion, I outlined the possible presence of CRPS contributing to chronic left lower extremity pain and advised pursuing a lumbar sympathetic block to determine potential sympathetically mediated pain. We carefully reviewed the risks, benefits, and alternatives, and the patient expressed understanding. Additionally, we discussed further diagnostic imaging to reassess the knee and ankle for structural concerns, as well as considering non-invasive pain management strategies to facilitate reduction in hydromorphone use. The patient expressed understanding of the proposed approach and the importance of follow-up and potential intervention modifications based on evolving findings. Patient Instructions - Attend scheduled MRI on Wednesday for knee and ankle assessment. - Follow pain management plan cautiously reducing hydromorphone use. - Continue with prescribed physical therapy emphasizing gait correction. - Consider initiation of osteoporosis treatment post-MRI results. - Maintain a pain log; report symptom changes promptly. - Seek immediate care if pain becomes intolerable or other symptoms worsen. Coding Level of Care Code New Pt Level 4 (89462) Diagnoses Bilateral ankle pain, unspecified chronicity M25.571; M25.572 Chronicity: unspecified Neuropathy of left peroneal nerve G57.32 Laterality: left Knee pain M25.569 Acute pain of left lower extremity M79.605
[2024-09-08 10:33] VITALS: BP 126/56; PULSE 83; RESP 16; O2SAT 94; BMI 18.6
--- OUTSIDE RECORDS SUMMARY | 2024-09-08 11:17 | XMS_ITS | Encounter Summary ---
Author Organization [facility] Address [address] [place] [address] Care Team Providers Care Residential Youth Counselor Name Role Phone Mariam Chapa MD Primary Care Provider [phone] [phone] Reason for Visit * Reason Onset Date Comments Medication 06/27/2016 Encounter Details Date Type Department Care Team Description 06/27/2016 Telephone Adult Urgent Care - [address] [address] Mariam Chapa, [address] [place] [address] Medication Social History Tobacco Use Types Packs/Day [...] on filedocumented in this encounter Care Teams Residential Youth Counselor Relationship Specialty Start Date End Date Mariam Chapa MD [address] [place] [address] PCP - General 07/21/06 documented as of this encounter
--- OUTSIDE RECORDS SUMMARY | 2024-09-08 11:17 | XMS_ITS | Encounter Summary ---
Author Organization [facility] Address [address] [place] [address] Care Team Providers Care Gas Station Manager Name Role Phone Mariam Chapa MD Primary Care Provider [phone] [phone] Encounter Details Date Type Department Care Team Description 06/28/2016 Telephone Adult Medicine - [place] [address] [place] [address] Mariam Chapa MD [address] [place] [address] Social History Tobacco Use Types Packs/Day Years [...] on filedocumented in this encounter Care Teams Gas Station Manager Relationship Specialty Start Date End Date Mariam Chapa MD [address] [place] [address] PCP - General 07/21/06 documented as of this encounter
--- OUTSIDE RECORDS SUMMARY | 2024-09-08 11:17 | XMS_ITS | Encounter Summary ---
[facility] Address [address] [place] [address] Care Team Providers Care Grade And Center Marker Name Role Phone Mariam Chapa MD Primary Care Provider [phone] [phone] Reason for Visit * Reason Onset Date Comments REFERRAL 08/31/2016 Encounter Details Date Type Department Care Team Description 08/31/2016 Telephone Rheumatology - [address] [address] Annie Paz MD REFERRAL Social History Tobacco [...] left hip(s) Priority: Next Available Payor: Not third-republican related Tried to contact patient several times by phone and sent letter to patient as well with no response, did remove patient from referral report documented in this encounter Plan of Treatment Not on file documented as of this encounter Visit Diagnoses Not on filedocumented in this encounter Care Teams Grade And Center Marker Relationship Specialty Start Date End Date Mariam Chapa MD [address] [place] [address] [place] [address] PCP - General 07/21/06 documented as of this encounter
--- OUTSIDE RECORDS SUMMARY | 2024-09-08 11:17 | XMS_ITS | Encounter Summary ---
[facility] Organization [facility] Address [address] [place] [address] Care Team Providers Care Laborer Shellfish Processing Name Role Phone Mariam Chapa MD Primary Care Provider [phone] [phone] Encounter Details Date Type Department Care Team Description 06/27/2016 [facility] Medical Records [address] [place] [address] Abstract, Provider Social History Tobacco Use Types [...] on filedocumented in this encounter Care Teams Laborer Shellfish Processing Relationship Specialty Start Date End Date Mariam Chapa, [address] [place] [address] PCP - General 07/21/06 documented as of this encounter
--- OUTSIDE RECORDS SUMMARY | 2024-09-08 11:17 | XMS_ITS | Encounter Summary ---
Author Organization [facility] Address [address] [place] [address] Care Team Providers Care Day Worker Name Role Phone Mariam Chapa MD Primary Care Provider [phone] [phone] Reason for Visit * Reason Onset Date Comments other 10/23/2016 Encounter Details Date Type Department Care Team Description 10/23/2016 [place]phone [place] [address] Isak Sanchez MD other Social History Tobacco [...] does not want to go to a production control manager and said she already spoke to you about this. documented in this encounter Plan of Treatment Not on file documented as of this encounter Visit Diagnoses Not on filedocumented in this encounter Care Teams Day Worker Relationship Specialty Start Date End Date Mariam Chapa, [address] [place] [address] PCP - General 07/21/06 documented as of this encounter
--- OUTSIDE RECORDS SUMMARY | 2024-09-08 11:17 | XMS_ITS | Encounter Summary ---
Author Organization [facility] Address [address] [place] [address] Care Team Providers Care Patient Financial Services Specialist Name Role Phone Mariam Chapa MD Primary Care Provider [phone] Reason for Visit * Reason Onset Date Comments Breathing Problems 04/30/2013 Encounter Details Date Type Department Care Team Description 04/30/2013 Telephone Adult Urgent Care - [address] [address] Mariam Chapa, [address] [place] [address] Breathing Problems Social History Tobacco Use Types [...] Payor: AKBAR POS Plan: POS $15 [place] [id number] Product Type: POS [id number] documented in this encounter Plan of Treatment Not on file documented as of this encounter Visit Diagnoses Not on filedocumented in this encounter Care Teams Patient Financial Services Specialist Relationship Specialty Start Date End Date Mariam Chapa MD [facility] [place] [address] PCP - General 07/21/06 documented as of this encounter
--- OUTSIDE RECORDS SUMMARY | 2024-09-08 11:18 | XMS_ITS | Encounter Summary ---
Author Organization [facility] Address [address] [place] [address] Care Team Providers Care Life Insurance Actuary Name Role Phone Mariam Chapa MD Primary Care Provider [phone] [phone] Reason for Visit * Reason Onset Date Comments Provider Call Back 02/12/2022 Orders Call 02/12/2022 MRI Encounter Details Date Type Department Care Team Description 02/12/2022 Telephone Adult Medicine - [place] [address] [place] [address] Mariam Chapa MD [address] [place] [address] Provider Call Back; Orders Call (MRI) Social [...] in a lot of pain. [facility] and patient wants to know if she should wait to start the prednisone? Patient is requesting a call back documented in this encounter Plan of Treatment Not on file documented as of this encounter Visit Diagnoses Not on filedocumented in this encounter Care Teams Life Insurance Actuary Relationship Specialty Start Date End Date Mariam Chapa MD [facility] [place] [address] PCP - General 07/21/06 documented as of this encounter
--- OUTSIDE RECORDS SUMMARY | 2024-09-08 11:18 | XMS_ITS | Encounter Summary ---
Author Organization [facility] Address [address] [place] [address] Care Team Providers Care Commutator Undercutter Name Role Phone Mariam Chapa MD Primary Care Provider [phone] [phone] Reason for Visit * Reason Onset Date Comments Orders Call 04/17/2022 Encounter Details Date Type Department Care Team Description 04/17/2022 Telephone Adult Medicine - [place] [address] [place] [address] Mariam Chapa MD [address] [place] [address] Orders Call Social History Tobacco Use Types [...] encounter Miscellaneous Notes * Telephone Encounter - Jacob Harding - 04/21/2022 8:57 AM EST MRI order faxed to [phone] per patients request * Telephone Encounter - Mariam Chapa MD - 04/20/2022 12:04 PM EST I printed the MRI please fax as per patient's request we will call patient about her x-rays * Telephone Encounter - Dena Naranjo - 04/20/2022 11:32 AM EST Patient is calling back. She would like the MRI order faxed over to [phone]. She is requestinga call back about her xray's. She would also like to like Dr. Cruz know she went to [facility] on 04/17/22. She was in a lot of pain. They did not do anything for her. * Telephone Encounter - Mariam Chapa MD - 04/17/2022 2:05 PM EST We do not have verbal so cannot talk to her * Telephone Encounter - Dena Naranjo - 04/17/2022 1:27 PM EST Patient's concrete panel installer Katerine from [employer] is calling. She is requesting an update about this. She is not on the patients verbal release. * Telephone Encounter - Gloria Pal - 04/17/2022 12:06 PM EST Patient is requesting her MRI order and any supporting documentation be faxed to [facility] ATTN Briana Rueda Knee Claim Number [id number] FAX [phone] documented in this encounter Plan of Treatment Not on file documented as of this encounter Visit Diagnoses Diagnosis Pain and swelling of knee, left- Primary documented in this encounter Care Teams Commutator Undercutter Relationship Specialty Start Date End Date Mariam Chapa MD [address] [place] [address] PCP - General 07/21/06 documented as of this encounter
--- OUTSIDE RECORDS SUMMARY | 2024-09-08 11:18 | XMS_ITS | Encounter Summary ---
Author Organization [facility] Address [address] [place] [address] Care Team Providers Care Vehicle Operator Name Role Phone Mariam Chapa MD Primary Care Provider [phone] [phone] Reason for Visit * Reason Onset Date Comments Prior Authorization 04/06/2022 MRI- Lower E xtremity Joint/Nonjoint Encounter Details Date Type Department Care Team Description 04/06/2022 Telephone Adult Medicine - [place] [address] [place] [address] Mariam Chapa MD [address] [place] [address] Prior Authorization (MRI- Lower Extremity Joint/Nonjoint) Social [...] conduct a Peer to Peer by calling [phone]. Ref case# [id number] Thank You Neela Villegas Auth Dept P: [phone] documented in this encounter Plan of Treatment Not on file documented as of this encounter Visit Diagnoses Not on filedocumented in this encounter Care Teams Vehicle Operator Relationship Specialty Start Date End Date Mariam Chapa MD [address] [place] [address] PCP - General 07/21/06 documented as of this encounter
--- OUTSIDE RECORDS SUMMARY | 2024-09-08 11:18 | XMS_ITS | Encounter Summary ---
Author Organization [facility] Address [address] [place] [address] Care Team Providers Care Brown Stock Washer Name Role Phone Mariam Chapa MD Primary Care Provider [phone] [phone] Encounter Details Date Type Department Care Team Description 03/11/2011 Nutritionist Report Medical Records [address] [place] [address] Julio Snyder Social History Tobacco Use Types Packs/Day Years [...] on filedocumented in this encounter Care Teams Brown Stock Washer Relationship Specialty Start Date End Date Mariam Chapa, [address] [place] [address] PCP - General 07/21/06 documented as of this encounter
--- OUTSIDE RECORDS SUMMARY | 2024-09-08 11:18 | XMS_ITS | Encounter Summary ---
Author Organization [facility] Address [address] [place] [address] Care Team Providers Care Project Design Engineer Name Role Phone Millicent Chapa MD Primary Care Prov ider Reason for Visit * Reason Onset Date Comments Medication Problem 08/28/2024 HYDROmorphone (Dilaudid) 2 mg tablet Encounter Details Date Type Department Care Team (Late st Contact Info) Description 08/28/2024 Telephone Adult Medicine [facility] [address] [place] [address] Fredrick Munoz PA [address] [place] [address] Medication Problem (HYDROmorphone (Dilaudid) 2 mg tablet) [...] EDT Old message patient received this through [employer] * Carolina Day - 08/28/2024 2:36 PM EDT Medication Problem: What is the name of the medication patient is having a problem with?: HYDROmorphone (Dilaudid) 2 mgtablet What is the problem?: 2MG is on backorder and not available at the [facility] selected, please send alternative per fax Who is calling about the problem? : A pharmacist: Pharmacy: [facility] Pharmacist Name: x Pharmacy Is this a NEW medication?: no How long has the patient been taking this medication? NA Who prescribed this medication for the patient? Dr. Cruz Who is patients PCP?: Millicent Chapa MD Payor: GUNNAR Caputo [place] / Plan: [facility] PPO / Product Type: *No Product type* / documented in this encounter Plan of Treatment Upcoming Encounters Date Type Department Care Team (Late st Contact Info) Description 09/27/2024 8:30 AM EDT Office Visit Adult Medicine - [place] [address] [place] [address] Millicent Chapa MD [address] [place] [address] documented as of this encounter Visit Diagnoses Not on filedocumented in this encounter Care Teams Project Design Engineer Relationship Specialty Start Date End Date Millicent Chapa MD [address] [place] [address] PCP - General 07/21/06 documented as of this encounter
--- OUTSIDE RECORDS SUMMARY | 2024-09-08 11:18 | XMS_ITS | Encounter Summary ---
Author Organization [facility] Address [address] [place] [address] Care Team Providers Care Passenger Flagman Name Role Phone Mariam Chapa MD Primary Care Provider [phone] [phone] Reason for Visit * Reason Onset Date Comments infectious disease 04/13/2022 Encounter Details Date Type Department Care Team Description 04/13/2022 Telephone Adult Medicine - [place] [address] [place] [address] Mariam Chapa, [address] [place] [address] infectious disease Social History Tobacco Use Types [...] on filedocumented in this encounter Care Teams Passenger Flagman Relationship Specialty Start Date End Date Mariam Chapa MD [address] [place] [address] PCP - General 07/21/06 documented as of this encounter
--- OUTSIDE RECORDS SUMMARY | 2024-09-08 11:18 | XMS_ITS | Encounter Summary ---
Author Organization [facility] Address [address] [place] [address] Care Team Providers Care Prover Name Role Phone Mariam Chapa MD Primary Care Provider [phone] [phone] Reason for Visit * Reason Onset Date Comments hospital follow up 07/12/2020 Encounter Details Date Type Department Care Team Description 07/12/2020 Telephone Adult Medicine - [place] [address] [place] [address] Mariam Chapa MD [address] [place] [address] hospital follow up Social History Tobacco Use [...] Telephone Encounter - Vilma Jasso M.A. - 07/12/2020 3:55 PM EST Notes being obtained from LILIANA and [facility] * Telephone Encounter - Lisa Rowley L.P.N. - 07/12/2020 3:33 PM EST appt given 07/24 with pcp please get galo and [facility] notes * Telephone Encounter - Lisa Rowley L.P.N. - 07/12/2020 12:26 PM EST Left message for pt to call back * Telephone Encounter - Vilma Hector - 07/12/2020 12:15 PM EST Hospital follow up appointment needed Hospital patient was treated at: [facility] Was this only an ER visit or was the patient admitted to the hospital? Admitted to hospital Date of visit if ER visit only: N/A If patient was admitted what was the date of discharge? 07/12/2020 Reason/diagnosis for visit or stay: Prinznetal angina When was the patient told to follow up? No time limit Was visit or stay related to an injury? NO If yes, what was the date of injury (DOI)? N/A If yes, was the injury due to N/A documented in this encounter Plan of Treatment Not on file documented as of this encounter Visit Diagnoses Not on filedocumented in this encounter Care Teams Prover Relationship Specialty Start Date End Date Mariam Chapa MD [address] [place] [address] PCP - General 07/21/06 documented as of this encounter
--- OUTSIDE RECORDS SUMMARY | 2024-09-08 11:18 | XMS_ITS | Encounter Summary ---
Author Organization [facility] Address [address] [place] [address] Care Team Providers Care Wind Power Project Manager Name Role Phone Mariam Chapa MD Primary Care Provider +1 -[phone] Reason for Visit * Reason Onset Date Comments other 05/05/2022 Encounter Details Date Type Department Care Team Description 05/05/2022 Telephone Adult Medicine - [place] [address] [place] [address] Mariam Chapa MD [address] [place] [address] other Social History Tobacco Use Types Packs/Day [...] for referral to Pt (see previous msg))to [facility] On small dose lyrica 25 mg [...] as well to [facility] in [place] fax order there post covid and neuropthy [...] > asking to order Physical Therapy to [facility] ([address] [address]) > asking to order a referral to [...] on filedocumented in this encounter Care Teams Wind Power Project Manager Relationship Specialty Start Date End Date Mariam Chapa MD [address] [place] [address] PCP - General 07/21/06 documented as of this encounter
--- OUTSIDE RECORDS SUMMARY | 2024-09-08 11:18 | XMS_ITS | Encounter Summary ---
Author Organization [facility] Address [address] [place] [address] Care Team Providers Care Director Of Consumer Marketing Name Role Phone Mariam Chapa MD Primary Care Provider +1 -[phone] Encounter Details Date Type Department Care Team Description 02/16/2011 Night Triage Doc Medical Records [address] [place] [address] Abstract, Provider Social History Tobacco Use Types [...] on filedocumented in this encounter Care Teams Director Of Consumer Marketing Relationship Specialty Start Date End Date Mariam Chapa, [address] [place] [address] PCP - General 07/21/06 documented as of this encounter
--- OUTSIDE RECORDS SUMMARY | 2024-09-08 11:18 | XMS_ITS | Encounter Summary ---
[facility] Organization [facility] Address [address] [place] [address] Care Team Providers Care Medical Technicians Name Role Phone Mariam hCapa MD Primary Care Provider +1 -[phone] Encounter Details Date Type Department Care Team Description 04/28/2022 Intelligence Applications Report Medical Records [address] [place] [address] Janis Mendieta NP Social History Tobacco Use [...] on filedocumented in this encounter Care Teams Medical Technicians Relationship Specialty Start Date End Date Mariam Chapa, [address] [place] [address] PCP - General 07/21/06 documented as of this encounter
--- OUTSIDE RECORDS SUMMARY | 2024-09-08 11:18 | XMS_ITS | Encounter Summary ---
Author Organization [facility] Address [address] [place] [address] Care Team Providers Care Rug Hooker Hand Name Role Phone Mariam Chapa MD Primary Care Provider +1 -[phone] Reason for Visit * Reason Onset Date Comments Orders Call 07/02/2020 done on 07/04 Encounter Details Date Type Department Care Team Description 07/02/2020 Telephone Adult Medicine - [place] [address] [place] [address] Mariam Chapa MD [address] [place] [address] Orders Call (done on 07/04) Social History [...] 3:15 PM EST Lab orders faxed to [facility]. * Telephone Encounter - Maria Luisa Alvarez - 07/02/2020 2:23 PM EST Patient calling to request labs be ordered: What lab work is patient requesting? Labs ordered on 07/04. Pt looking for this to be sent to [facility] labs, pt does not know the fax, pt states call number is [phone] Does patient have an upcoming appointment, if yes when and WITH WHO? no Patients PCP is: Millicent Chapa documented in this encounter Plan of Treatment Not on file documented as of this encounter Visit Diagnoses Not on filedocumented in this encounter Care Teams Rug Hooker Hand Relationship Specialty Start Date End Date Mariam Chapa MD [address] [place] [address] PCP - General 07/21/06 documented as of this encounter
--- OUTSIDE RECORDS SUMMARY | 2024-09-08 11:18 | XMS_ITS | Encounter Summary ---
Author Organization [facility] Address [address] [place] [address] Care Team Providers Care Foundry Molder Name Role Phone Millicent Chapa MD Primary Care Prov ider Reason for Visit * Reason Onset Date Comments Fitting for DME 09/01/2024 Encounter Details Date Type Department Care Team ([facility] Contact Info) Description 09/01/2024 Telephone Adult Medicine - [place] [address] [place] [phone] Millicent Chapa MD [address] [place] [address] Fitting for DME Social History Tobacco Use [...] Upcoming Encounters Date Type Department Care Team ([facility] st Contact Info) Description 09/27/2024 8:30 AM EDT Office Visit Adult Medicine - [place] [address] [place] [address] Millicent Chapa MD [address] [place] [address] documented as of this encounter Visit Diagnoses Not on filedocumented in this encounter Care Teams Foundry Molder Relationship Specialty Start Date End Date Millicent Chapa MD [address] [place] [address] PCP - General 07/21/06 documented as of this encounter
--- OUTSIDE RECORDS SUMMARY | 2024-09-08 11:18 | XMS_ITS | Encounter Summary ---
Author Organization [facility] Address [address] [place] [address] Care Team Providers Care Bottom Buffer Name Role Phone Mariam Chapa MD Primary Care Provider +1 -[phone] Encounter Details Date Type Department Care Team Description 04/05/2012 Fishing Tool Supervisor Report Medical Records [address] [place] [address] Mindi Lincoln MD Social History Tobacco Use [...] on filedocumented in this encounter Care Teams Bottom Buffer Relationship Specialty Start Date End Date Mariam Chapa MD [address] [place] [address] PCP - General 07/21/06 documented as of this encounter
--- OUTSIDE RECORDS SUMMARY | 2024-09-08 11:18 | XMS_ITS | Encounter Summary ---
Author Organization [facility] Address [address] [place] [address] Care Team Providers Care Automotive Project Engineer Name Role Phone Mariam Chapa MD Primary Care Provider +1 -[phone] Encounter Details Date Type Department Care Team Description 11/09/2014 Canvas Shop Laborer Report Medical Records [address] [place] [address] Daniel Rincon Social History Tobacco Use Types [...] on filedocumented in this encounter Care Teams Automotive Project Engineer Relationship Specialty Start Date End Date Mariam Chapa, [address] [place] [address] PCP - General 07/21/06 documented as of this encounter
--- OUTSIDE RECORDS SUMMARY | 2024-09-08 11:18 | XMS_ITS | Encounter Summary ---
Author Organization [facility] Address [address] [place] [address] Care Team Providers Care Meat Cutter Name Role Phone Mariam Chapa MD Primary Care Provider +1 -[phone] Reason for Visit * Reason Onset Date Comments er follow up 06/19/2022 Encounter Details Date Type Department Care Team Description 06/19/2022 Telephone Adult Medicine - [place] [address] [place] [address] Mariam Chapa, [address] [place] [address] er follow up Social History Tobacco Use [...] is more complex, and that as a hot walker, she knows she needs to see Millicent Chapa. Asking that triage give pt a call in the afternoon. Appt 09/17 has been cancelled, as it was booked incorrectly and was no longer a necessary appt. documented in this encounter Plan of Treatment Not on file documented as of this encounter Visit Diagnoses Not on filedocumented in this encounter Care Teams Meat Cutter Relationship Specialty Start Date End Date Mariam Chapa MD [address] [place] [address] PCP - General 07/21/06 documented as of this encounter
--- OUTSIDE RECORDS SUMMARY | 2024-09-08 11:18 | XMS_ITS | Clinical Summary ---
Author Organization [facility]. Address [address] [address] Phone Care Team Providers Care Front Maker Name Role Phone Millicent Chapa MD [...] Orders Only [facility] [place] [id number] [facility] [address] [place] [phone] Brock Johnson MD Other asthma; Personal history of kidney stones 08/22/2024 2:15 PM EDT Office Visit [facility] [place] [id number] [facility] [address] [place] [phone] Brock Johnson MD Edema, not otherwise specified (Primary Dx); Other asthma from Last 3 Months Immunizations Immunization Administration Dates Next Due Influenza, MDCK, Quadrivalent, with preservative 04/14/2021 MedShape SARS-COV-2 03/27/2021 MMR 02/18/2017 MMRV 02/18/2017 PPD [...] Office Visit [facility] [place] [facility] [address] [address] Brock Johnson MD [address] [address] Health Maintenance Due Date Last Done Comments Breast Cancer Screening 1960 Pneumococcal Vaccine: 50+ Ye ars (1 of 2 - PCV) 12/29/1978 Colorectal Cancer Screening: Annual FOBT 12/29/2008 Colorectal [...] Chloride 106.0 99.0 - 108.0 eGFR Non-Afr Zambian 60 08/11/2024 us Historical Provider LAB BLOOD ORDERABLES Isabella l Result from Last 3 Months Insurance [facility] Care Teams Front Maker Relationship Specialty Start Date End Date Millicent Chapa MD [address] [place] [address] PCP - General Internal Medicine 08/22/24
--- OUTSIDE RECORDS SUMMARY | 2024-09-08 11:18 | XMS_ITS | Encounter Summary ---
Author Organization [facility] Address [address] [place] [address] Care Team Providers Care Processor Grain Name Role Phone Mariam Chapa MD Primary Care Provider +1 -[phone] Encounter Details Date Type Department Care Team Description 05/17/2012 Social Sciences Department Chair Report Medical Records [address] [place] [address] Social History Tobacco Use Types Packs/Day Years [...] on filedocumented in this encounter Care Teams Processor Grain Relationship Specialty Start Date End Date Mariam Chapa MD [address] [place] [address] PCP - General 07/21/06 documented as of this encounter
--- OUTSIDE RECORDS SUMMARY | 2024-09-08 11:18 | XMS_ITS | Encounter Summary ---
Author Organization [facility] Address [address] [place] [address] Care Team Providers Care Decontamination Worker Name Role Phone Mariam Chapa MD Primary Care Provider +1 -[phone] Encounter Details Date Type Department Care Team Description 04/18/2012 Resolution Agent Report Medical Records [address] [place] [address] Social History Tobacco Use Types Packs/Day Years [...] on filedocumented in this encounter Care Teams Decontamination Worker Relationship Specialty Start Date End Date Mariam Chapa MD [address] [place] [address] PCP - General 07/21/06 documented as of this encounter
--- OUTSIDE RECORDS SUMMARY | 2024-09-08 11:18 | XMS_ITS | Encounter Summary ---
Author Organization [facility] Address [address] [place] [address] Care Team Providers Care Blood Typer Name Role Phone Mariam Chapa MD Primary Care Provider +1 -[phone] Encounter Details Date Type Department Care Team Description 05/12/2012 Night Triage Doc Medical Records [address] [place] [address] Abstract, Provider Social History Tobacco Use Types [...] filedocumented in this encounter Care Teams Blood Typer Relationship Specialty Start Date End Date Mariam Chapa, [address] [place] [address] PCP - General 07/21/06 documented as of this encounter
--- OUTSIDE RECORDS SUMMARY | 2024-09-08 11:18 | XMS_ITS | Encounter Summary ---
Author Organization [facility] Address [address] [place] [address] Care Team Providers Care Glue Spreader Name Role Phone Mariam Chapa MD Primary Care Provider +1 -[phone] Reason for Visit * Reason Onset Date Comments Letter 05/20/2022 Work note/ covid releated Encounter Details Date Type Department Care Team Description 05/20/2022 Telephone Adult Medicine - [place] [address] [place] [address] Mariam hCapa MD [address] [place] [address] Letter (Work note/ covid releated ) Social [...] on filedocumented in this encounter Care Teams Glue Spreader Relationship Specialty Start Date End Date Mariam Chapa MD [address] [place] [address] PCP - General 07/21/06 documented as of this encounter
--- OUTSIDE RECORDS SUMMARY | 2024-09-08 11:18 | XMS_ITS | Encounter Summary ---
Author Organization [facility] Address [address] [place] [address] Care Team Providers Care Personal Fitness Manager Name Role Phone Mariam Chapa MD Primary Care Provider +1 -[phone] Encounter Details Date Type Department Care Team Description 01/18/2014 Orders Only Adult Medicine [address] [address] Ariana Fox DO Social History Tobacco Use [...] on filedocumented in this encounter Care Teams Personal Fitness Manager Relationship Specialty Start Date End Date Mariam Chapa MD [address] [place] [address] PCP - General 07/21/06 documented as of this encounter
--- OUTSIDE RECORDS SUMMARY | 2024-09-08 11:18 | XMS_ITS | Encounter Summary ---
Author Organization [facility] Address [address] [place] [address] Care Team Providers Care Artist Relationship Manager Name Role Phone Mariam Chapa MD Primary Care Provider +1 -[phone] Encounter Details Date Type Department Care Team Description 02/22/2024 Orders Only Medical Records [address] [place] [address] Social History Tobacco Use Types Packs/Day Years [...] * OUTSIDE LAB (01/28/2024) [facility] LAB * OUTSIDE VASCULAR STUDY (01/28/2024) [facility] CARDIOLOGY documented in this encounter Visit Diagnoses Not on filedocumented in this encounter Care Teams Artist Relationship Manager Relationship Specialty Start Date End Date Mariam Chapa MD [facility] [place] [address] PCP - General 07/21/06 documented as of this encounter
--- OUTSIDE RECORDS SUMMARY | 2024-09-08 11:18 | XMS_ITS | Encounter Summary ---
Author Organization [facility] Address [address] [place] [address] Care Team Providers Care Lbd Teacher Name Role Phone Mariam Chapa MD Primary Care Provider +1 -[phone] Encounter Details Date Type Department Care Team Description 07/12/2020 Hospital Medical Records [address] [place] [address] Dennys Chua MD Social History Tobacco Use Types Packs/Day [...] on filedocumented in this encounter Care Teams Lbd Teacher Relationship Specialty Start Date End Date Mariam Chapa MD [address] [place] [address] PCP - General 07/21/06 documented as of this encounter
--- OUTSIDE RECORDS SUMMARY | 2024-09-08 11:18 | XMS_ITS | Encounter Summary ---
Author Organization [employer] [facility] Address [address] [place] [address] Care Team Providers Care Dobby Loom Weaver Name Role Phone Mariam Chapa MD Primary Care Provider +1 -[phone] Encounter Details Date Type Department Care Team Description 04/06/2022 Orders Only Adult Medicine - [place] [address] [place] [address] Mariam Chapa MD [address] [place] [address] Social History Tobacco Use Types Packs/Day Years [...] on filedocumented in this encounter Care Teams Dobby Loom Weaver Relationship Specialty Start Date End Date Mariam Chapa MD [address] [place] [address] PCP - General 07/21/06 documented as of this encounter
--- OUTSIDE RECORDS SUMMARY | 2024-09-08 11:18 | XMS_ITS | Encounter Summary ---
Author Organization [facility] Address [address] [place] [address] Care Team Providers Care Leaf Blender Name Role Phone Mariam Chapa MD Primary Care Provider +1 -[phone] Encounter Details Date Type Department Care Team Description 08/13/2014 ROUND BONER/MassPat Report Medical Records [address] [place] [address] Abstract, Provider Social History Tobacco Use Types [...] on filedocumented in this encounter Care Teams Leaf Blender Relationship Specialty Start Date End Date Mariam Chapa, [address] [place] [address] PCP - General 07/21/06 documented as of this encounter
--- OUTSIDE RECORDS SUMMARY | 2024-09-08 11:18 | XMS_ITS | Encounter Summary ---
Author Organization [facility] Address [address] [place] [address] Care Team Providers Care Stone Crusher Operator Name Role Phone Mariam Chapa MD Primary Care Provider +1 -[phone] Encounter Details Date Type Department Care Team Description 07/07/2012 Tower Erector Helper Report Medical Records [address] [place] [address] Kenyatta Beauchamp MD Social History Tobacco Use [...] on filedocumented in this encounter Care Teams Stone Crusher Operator Relationship Specialty Start Date End Date Mariam Chapa MD [address] [place] [address] PCP - General 07/21/06 documented as of this encounter
--- OUTSIDE RECORDS SUMMARY | 2024-09-08 11:18 | XMS_ITS | Encounter Summary ---
Author Organization [facility] Address [address] [place] [address] Care Team Providers Care Chain Pegger Name Role Phone Mariam Chapa MD Primary Care Provider +1 -[phone] Encounter Details Date Type Department Care Team Description 08/30/2014 Bank Sales And Service Manager Report Medical Records [address] [place] [address] Daniel Rincon Social History Tobacco Use Types [...] on filedocumented in this encounter Care Teams Chain Pegger Relationship Specialty Start Date End Date Mariam Chapa, [address] [place] [address] PCP - General 07/21/06 documented as of this encounter
--- OUTSIDE RECORDS SUMMARY | 2024-09-08 11:18 | XMS_ITS | Encounter Summary ---
Author Organization [facility] Address [address] [place] [address] Care Team Providers Care Aligning Checker Name Role Phone Mariam Chapa MD Primary Care Provider +1 -[phone] Encounter Details Date Type Department Care Team Description 11/02/2012 Release of Information Medical Records [address] [place] [address] Abstract, Provider Social History Tobacco Use Types [...] on filedocumented in this encounter Care Teams Aligning Checker Relationship Specialty Start Date End Date Mariam Chapa, [address] [place] [address] PCP - General 07/21/06 documented as of this encounter
--- OUTSIDE RECORDS SUMMARY | 2024-09-08 11:18 | XMS_ITS | Encounter Summary ---
Author Organization [facility] Address [address] [place] [address] Care Team Providers Care Cracking And Fanning Machine Operator Name Role Phone Mariam Chapa MD Primary Care Provider +1 -[phone] Encounter Details Date Type Department Care Team Description 08/05/2015 Telephone Adult Medicine - [address] [address] Fredrick Munoz PA-C [address] [place] [address] Social History Tobacco Use Types Packs/Day Years [...] PM EST Fyi Records requested via fax. [phone] and F:[phone] * Telephone Encounter - Fredrick Munoz PA-C - 08/05/2015 6:44 PM EST Patient states that within the last 2 weeks she went to [facility] outpatient pavilion and had x-rays and blood work performed. Please contact [facility] to see if any results to be forwarded to us. documented in this encounter Plan of Treatment Not on file documented as of this encounter Visit Diagnoses Not on filedocumented in this encounter Care Teams Cracking And Fanning Machine Operator Relationship Specialty Start Date End Date Mariam Chapa MD [address] [place] [address] PCP - General 07/21/06 documented as of this encounter
--- OUTSIDE RECORDS SUMMARY | 2024-09-08 11:18 | XMS_ITS | Encounter Summary ---
Author Organization [facility] Address [address] [place] [address] Care Team Providers Care Special Services Director Name Role Phone Mariam Chapa MD Primary Care Provider +1 -[phone] Reason for Visit * Reason Comments E-prescribe Rx Request Encounter Details Date Type Department Care Team Description 02/08/2013 Refill Adult Medicine - [place] [address] [place] [address] Mariam Chapa, [address] [place] [address] E-prescribe Rx Request Social History Tobacco Use [...] is: Payor: BIN/FRANNIE POS Plan: POS $15 [place] [id number] Product Type: POS [id number] documented in this encounter Plan of Treatment Not on file documented as of this encounter Visit Diagnoses Not on filedocumented in this encounter Care Teams Special Services Director Relationship Specialty Start Date End Date Mariam Chapa, [address] [place] [address] PCP - General 07/21/06 documented as of this encounter
--- OUTSIDE RECORDS SUMMARY | 2024-09-08 11:18 | XMS_ITS | Encounter Summary ---
Author Organization [facility] Address [address] [place] [address] Care Team Providers Care Director Business Development Name Role Phone Mariam Chapa MD Primary Care Provider +1 -[phone] Reason for Visit * Reason Onset Date Comments DME Request 05/01/2022 Encounter Details Date Type Department Care Team Description 05/01/2022 Telephone Adult Medicine - [place] [address] [place] [address] Mariam Chapa MD [address] [place] [address] DME Request Social History Tobacco Use Types [...] something to work with. Faxed to [facility] @[phone] * Telephone Encounter - Tori Guevara M.A. [...] Fax to other office/MD at fax # [phone] Have you told the patient it will [...] Fax to other office/MD at fax # [phone] Have you told the patient it will [...] (HCC) documented in this encounter Care Teams Director Business Development Relationship Specialty Start Date End Date Mariam Chapa MD [address] [place] [address] PCP - General 07/21/06 documented as of this encounter
--- OUTSIDE RECORDS SUMMARY | 2024-09-08 11:18 | XMS_ITS | Encounter Summary ---
Author Organization [facility] Address [address] [place] [address] Care Team Providers Care Trust And Estates Attorney Name Role Phone Mariam Chapa MD Primary Care Provider +1 -[phone] Reason for Visit * Reason Onset Date Comments Letter 09/24/2022 See letter from 09/24/2022 Encounter Details Date Type Department Care Team Description 09/24/2022 Telephone Adult Medicine - [place] [address] [place] [address] Mariam Chapa MD [address] [place] [address] Letter (See letter from 09/24/2022) Social History Tobacco Use Types Packs/Day Years [...] Telephone Encounter - Alanna Lai M.A. - 09/25/2022 3:43 PM EDT Faxed with success * Telephone Encounter - Alanna Lai M.A. - 09/24/2022 1:33 PM EDT Left voicemail to asking call regarding message below. * Telephone Encounter - Carolina Day - 09/24/2022 11:28 AM EDT Patient was seen in the office today with Dr. Cruz and was given a letter, however PCP was having issues with printer. Patient asked if this letter could faxed to her HR office. ITALIA was completed by patient and is with Adore at check out. Please advise documented in this encounter Plan of Treatment Not on file documented as of this encounter Visit Diagnoses Not on filedocumented in this encounter Care Teams Trust And Estates Attorney Relationship Specialty Start Date End Date Mariam Chapa MD [address] [place] [address] PCP - General 07/21/06 documented as of this encounter
--- OUTSIDE RECORDS SUMMARY | 2024-09-08 11:18 | XMS_ITS | Encounter Summary ---
Author Organization [facility] Address [address] [place] [address] Care Team Providers Care Senior Production Supervisor Name Role Phone Mariam Chapa MD Primary Care Provider +1 -[phone] Encounter Details Date Type Department Care Team Description 03/23/2011 Web Ui Designer Report Medical Records [address] [place] [address] Vinnie Sprague Social History Tobacco Use Types [...] filedocumented in this encounter Care Teams Senior Production Supervisor Relationship Specialty Start Date End Date Mariam Chapa, [address] [place] [address] PCP - General 07/21/06 documented as of this encounter
--- OUTSIDE RECORDS SUMMARY | 2024-09-08 11:18 | XMS_ITS | Encounter Summary ---
Author Organization [facility] Address [address] [place] [address] Care Team Providers Care Plant Supervisor Name Role Phone Millicent Chapa MD Primary Care Prov ider Reason for Visit * Reason Onset Date Comments imaging 08/29/2024 Encounter Details Date Type Department Care Team (Late st Contact Info) Description 08/29/2024 Telephone Adult Medicine - [place] [address] [place] [phone] Millicent Chapa MD [address] [place] [address] imaging Social History Tobacco Use Types Packs/Day [...] 1:55 PM EDT Spoke to Roman at [facility] and pt canceled the appt so no clearance on diagnosis needed. * Gloria Castillo - 08/29/2024 10:51 AM EDT Spoke adam corleyjan from [facility] Patient is going in for a US Abdomen Complete but the diagnosis states leg swelling Please call her back at [phone] documented in this encounter Plan of Treatment Upcoming Encounters Date Type Department Care Team (Late st Contact Info) Description 09/27/2024 8:30 AM EDT Office Visit Adult Medicine [facility] [address] [place] [address] Millicent Chapa MD [address] [place] [address] documented as of this encounter Visit Diagnoses Not on filedocumented in this encounter Care Teams Plant Supervisor Relationship Specialty Start Date End Date Millicent Chapa MD [address] [place] [address] PCP - General 07/21/06 documented as of this encounter
--- OUTSIDE RECORDS SUMMARY | 2024-09-08 11:18 | XMS_ITS | Encounter Summary ---
Author Organization [facility] Address [address] [place] [address] Care Team Providers Care Vulnerability Researcher Name Role Phone Mariam Chapa MD Primary Care Provider +1 -[phone] Reason for Visit * Reason Onset Date Comments Shoulder Pain 06/13/2014 Encounter Details Date Type Department Care Team Description 06/13/2014 Telephone Adult Medicine - [place] [address] [place] [address] Mariam Chapa, [address] [place] [address] Shoulder Pain Social History Tobacco Use Types [...] Payor: BIN/FRANNIE POS / Plan: PPO $15 [place] [id number] / Product Type: PPO [id number] documented in this encounter Plan of Treatment Not on file documented as of this encounter Visit Diagnoses Diagnosis Adhesive capsulitis of shoulder, right- Primary documented in this encounter Care Teams Vulnerability Researcher Relationship Specialty Start Date End Date Mariam Chapa MD [address] [place] [address] PCP - General 07/21/06 documented as of this encounter
--- OUTSIDE RECORDS SUMMARY | 2024-09-08 11:19 | XMS_ITS | Encounter Summary ---
Author Organization [facility] Address [address] [place] [address] Care Team Providers Care Roll Off Driver Name Role Phone Mariam Chapa MD Primary Care Provider +1 -[phone] Encounter Details Date Type Department Care Team Description 01/13/2010 Night Triage Doc Medical Records [address] [place] [address] Abstract, Provider Social History Tobacco Use Types [...] on filedocumented in this encounter Care Teams Roll Off Driver Relationship Specialty Start Date End Date Mariam Chapa, [address] [place] [address] PCP - General 07/21/06 documented as of this encounter
--- OUTSIDE RECORDS SUMMARY | 2024-09-08 11:19 | XMS_ITS | Clinical Summary ---
Author Organization [facility] [address] [facility] Address [address] [place] [address] Phone Care Team Providers Care Denture Technician Name Role Phone Millicent Chapa MD Primary [...] Department Care Team Description 09/01/2024 Telephone Adult [facility] [address] [place] [phone] Millicent Subramanian MD Fitting for DME 08/29/2024 Telephone [facility] [address] [place] [phone] Millicent Subramanian MD imaging 08/28/2024 Telephone [facility] [address] [place] [address] Fredrick Munoz PA Medication Problem (HYDROmorphone (Dilaudid) 2 mg tablet) 08/23/2024 Telephone [facility] [address] [place] [address] Millicent Subramanian MD Referral (Attempted to reach, no response. TR) 08/17/2024 9:30 AM EDT Office Visit Adult [facility] [address] [place] [phone] Fredrick Munoz PA Chronic pain of left knee (Primary Dx); Leg swelling; Elevated BUN 08/17/2024 Telephone Adult [facility] [address] [place] [address] Millicent Crandall [place] [facility] UR[facility] DRUG SCREEN 08/10/2024 9:00 AM EDT Office Visit [address] [address] Fredrick Munoz PA Pain of left heel (Primary Dx); Chronic pain of left knee; Closed fracture of left tibial plateau, sequela; Muscle weakness (generalized) 08/10/[address] [address] Fredrick Munoz PA Fitting for DME 08/08/[address] [address] Fredrick Munoz PA Call Back; Joint Swelling 07/20/[address] [address] Fredrick Munoz PA Medication Problem (HYDROmorphone (Dilaudid) 2 mg tablet ) 07/17/[address] [address] Fredrick Munoz PA Letter for School/Work 07/14/[address] [address] Millicent Subramanian MD A call back (Regarding treatment for pain); Medication Problem 07/11/2024 10:00 AM EST Office Visit [address] [address] Fredrick Munoz PA Chronic pain of left knee (Primary Dx); Bilateral edema of lower extremity 07/11/[address] [address] Fredrick Munoz PA 07/05/[address] [address] Millicent Subramanian MD Joint Swelling (Ankles Swelling ) 07/03/[address] [address] Millicent Subramanian MD Joint Swelling 06/20/2024 Telephone Adult [facility] [address] [place] [address] Millicent Subramanian MD Pain 06/15/2024 10:00 AM EST Office Visit [facility] [address] [place] [address] Millicent Subramanian MD Closed fracture of left tibial plateau with delayed healing, subsequent encounter (Primary Dx); Chronic pain syndrome; Osteoporosis, unspecified osteoporosis type, unspecified pathological fracture presence from Last 3 Months Immunizations Name Administration Dates Next Due Influenza Quadravalent, MDCK , 0.5ml, with preservative (Flucelvax) 6mo and older 04/14/2021 [employer] SARS-CoV-2 COVID -19, vector-nr, rS-Ad26, preservative free 03/27/2021 PPD Test 03/17/2017,02/18/2010 Surgical History Surgery Date Site/Laterality Comments VAGINAL DELIVERY PROCEDURE: [place] VAGINAL DELIVERY ONLY; COMMENT: x3 Medical History [...] AM EDT Office Visit Adult Medicine - [place] [address] [place] [address] Millicent Chapa MD [address] [place] [address] Health Maintenance Due Date Last Done Comments [...] reflex confirmation, urine (08/17/2024 10:27 AM EDT) [facility] Amphetamine Screen, Ur Negative Negative LAB CHEMISTRY METHOD 5 5:25 PM EDT [facility] Comment:Certain OTC medicati ons containing ephedrine, phenylephrine, pseudoephedrine and phenylpropanolamine can cause false positive results. Barbiturate Screen, Ur Negative Negative LAB CHEMISTRY METHOD 5 5:25 PM EDT [facility] Benzodiazepine Screen, Ur Negative Negative LAB CHEMISTRY METHOD 5 5:25 PM EDT [facility] Cocaine Screen, Ur Negative Negative LAB CHEMISTRY METHOD 5 5:[address] [facility] Opiate Screen, Ur Positive(A ) Negative LAB CHEMISTRY METHOD 5 5:[address] [facility] Cannabinoid (THC) Screen, Ur Negative Negative LAB CHEMISTRY METHOD 5 5:[address] [facility] Comment:Specimens from patie nts taking pantoprazole sodium (Protonix) have been shown to produce false positive results. Fentanyl, Ur Negative Negative LAB CHEMISTRY METHOD 5 5:[address] [facility] Oxycodone Screen, Ur Negative Negative LAB CHEMISTRY METHOD 5 5:[address] [facility] Urine Urine specimen obtained by clean catch procedure / Unknown Non-blood Collection / Unknown 08/17/2024 10:27 AM EDT 08/17/2024 10:27 AM EDT Narrative [facility] - 08/17/2024 5:25 PM EDT Assay [...] STEVEN LAB URINE ORDERABLES Final Res ult [facility] [address] [place] [address], * Opiates confirmation, urine (08/17/2024 10:27 AM [...] developed and the performance characteristics determined by [facility]. This confirmation testing has not been cleared or approved by the FDA. The laboratory is regulated under CLIA as qualified to perform high-complexity testing. This test is used for patient testing purposes. It should not be regarded as investigational or for research. Test performed at [facility], [address], [place], [place] ??[address] ? [phone] Alyssa Barclay MD, PhD - Structural Test Engineer Urine Urine specimen obtained by clean catch procedure / Unknown Non-blood Collection / Unknown 08/17/2024 10:27 AM EDT 08/17/2024 5:25 PM EDT us Fredrick [facility] URINE ORDERABLES Final Res ult [facility] [address] [place] [address] * DXA BONE DENSITY STUDY [...] to have osteoporosis by WHO criteria. The [facility] Department of Internal Medicine recommends using National [...] alternative screening schedule based on jana Mahmood., [facility] June 18, 2011 for patients with [...] to have osteoporosis by WHO criteria. The [facility] Department of Internal Medicine recommendsusing National Osteoporosis [...] alternative screening schedule based on jana Mahmood., [place]JM[place] 2011 for patients with osteopenia (based on hip BMD T-score) is as follows: * advanced osteopenia (T scores -2.00 to -2.49), BMD testing every year * moderate osteopenia (T scores -1.50 to -1.99), BMD testing every 5years mild osteopenia or normal BMD (T scores -1.50 and higher), BMD testingevery 15 [address] [facility] DXA PROCEDURES Final Result * Hepatitis C Screening (04/03/2019) Hepatitis C Screening abstracted Historical Provider HEALTH MAINTENANCE Final Result * Pap Smear (12/29/2017) Pap smear abstracted, no interpretation [facility] Provider HEALTH MAINTENANCE Final Result * Colonoscopy (10/26/2014) Colonoscopy abstracted, no interpretation Anatomical Region Laterality Modality Other Historical Provider HEALTH MAINTENANCE Final Result * HIV Screening (02/03/2011) Pathologist [facility] HIV Screening abstracted [facility] Provider HEALTH MAINTENANCE Final Result from Last 3 Months or Most Recently Relevant to Health Maintenance Insurance [facility] Care Teams Denture Technician Relationship Specialty Start Date End Date Millicent Chapa MD [address] [place] [address] PCP - General 07/21/06
--- OUTSIDE RECORDS SUMMARY | 2024-09-08 11:19 | XMS_ITS | Encounter Summary ---
Author Organization [facility] Address [address] [place] [address] Care Team Providers Care Steamer Tender Name Role Phone Mariam Chapa MD Primary Care Provider [phone] -[phone] Reason for Visit * Reason Onset Date Comments Information Needed 03/14/2021 Encounter Details Date Type Department Care Team Description 03/14/2021 Telephone Adult Medicine - [address] [address] Felicia Alonzo NP Information Needed Social History [...] on filedocumented in this encounter Care Teams Steamer Tender Relationship Specialty Start Date End Date Mariam Chapa MD [facility]note 2[facility] [place] [address] PCP - General 07/21/06 documented as of this encounter
--- OUTSIDE RECORDS SUMMARY | 2024-09-08 11:19 | XMS_ITS | Encounter Summary ---
Author Organization [facility] Address [address] [place] [address] Care Team Providers Care Bioassayist Name Role Phone Mariam Chapa MD Primary Care Provider +1 -[phone] Encounter Details Date Type Department Care Team Description 03/16/2012 Internal Medicine Physician Assistant Report Medical Records [address] [place] [address] Darrell Smith Social History Tobacco Use Types [...] on filedocumented in this encounter Care Teams Bioassayist Relationship Specialty Start Date End Date Mariam Chapa MD [address] [place] [address] PCP - General 07/21/06 documented as of this encounter
--- OUTSIDE RECORDS SUMMARY | 2024-09-08 11:19 | XMS_ITS | Encounter Summary ---
Author Organization [facility] Address [address] [place] [address] Care Team Providers Care Grain Elevator Clerk Name Role Phone Mariam Chapa MD Primary Care Provider +1 -[phone] Reason for Visit * Reason Onset Date Comments radiology 05/11/2023 MRI denial Encounter Details Date Type Department Care Team Description 05/11/2023 Telephone Radiology - [place] [address] [place] [address] Mariam Chapa, [address] [place] [address] radiology (MRI denial) Social History Tobacco Use [...] Magaña - 06/08/2023 1:59 PM EST Case [id number] - does not meet medical criteria * Telephone Encounter - Mariam Chapa MD - 05/13/2023 4:42 PM EST Called [employer] to do a peer to peer review and they said the case number was wrong. Can you look into this * Telephone Encounter - Donna Magaña - 05/11/2023 11:53 AM EST MRI denied, case #[id number] [employer] phone # for P2P [phone] documented in this encounter Plan of Treatment Not on file documented as of this encounter Visit Diagnoses Not on filedocumented in this encounter Care Teams Grain Elevator Clerk Relationship Specialty Start Date End Date Mariam Chapa MD [address] [place] [address] PCP - General 07/21/06 documented as of this encounter
--- OUTSIDE RECORDS SUMMARY | 2024-09-08 11:19 | XMS_ITS | Encounter Summary ---
Author Organization [facility] Address [address] [place] [address] Care Team Providers Care Insurance Adviser Name Role Phone Mariam Chapa MD Primary Care Provider +1 -[phone] Encounter Details Date Type Department Care Team Description 03/17/2021 Telephone Adult Medicine - [place] [address] [place] [address] Felicia Alonzo NP Social History Tobacco Use [...] on filedocumented in this encounter Care Teams Insurance Adviser Relationship Specialty Start Date End Date Mariam Chapa MD [address] [place] [address] PCP - General 07/21/06 documented as of this encounter
--- OUTSIDE RECORDS SUMMARY | 2024-09-08 11:19 | XMS_ITS | Encounter Summary ---
Author Organization [facility] Address [address] [place] [address] Care Team Providers Care Cad Engineer Name Role Phone Mariam Chapa MD Primary Care Provider +1 -[phone] Encounter Details Date Type Department Care Team Description 02/12/2024 Home Health Certification Medical Records [address] [place] [address] [facility] [address] [place] [address] Social History Tobacco Use Types Packs/Day Years [...] on filedocumented in this encounter Care Teams Cad Engineer Relationship Specialty Start Date End Date Mariam Chapa MD [address] [place] [address] PCP - General 07/21/06 documented as of this encounter
--- OUTSIDE RECORDS SUMMARY | 2024-09-08 11:19 | XMS_ITS | Encounter Summary ---
Author Organization [facility] Address [address] [place] [address] Care Team Providers Care Pyrotechnics Press Tender Name Role Phone Mariam Chapa MD Primary Care Provider +1 -[phone] Encounter Details Date Type Department Care Team Description 03/17/2021 Orders Only Adult Medicine - [place] [address] [place] [address] Mariam Chapa MD [address] [place] [address] Muscle weakness (generalized) Social History Tobacco Use [...] (generalized) documented in this encounter Care Teams Pyrotechnics Press Tender Relationship Specialty Start Date End Date Mariam Chapa MD [address] [place] [address] PCP - General 07/21/06 documented as of this encounter
--- OUTSIDE RECORDS SUMMARY | 2024-09-08 11:19 | XMS_ITS | Encounter Summary ---
Author Organization [facility] Address [address] [place] [address] Care Team Providers Care Loin Trimmer Name Role Phone Mariam Chapa MD Primary Care Provider +1 -[phone] Reason for Visit * Reason Onset Date Comments dizziness 05/05/2023 Encounter Details Date Type Department Care Team Description 05/05/2023 Telephone Adult Medicine - [place] [address] [place] [address] Mariam Chapa MD [address] [place] [address] dizziness Social History Tobacco Use Types Packs/Day [...] is written she can try some Pepcid [id number] * Telephone Encounter - Raman Harley RN [...] recently to another state outside of [place], [place], [place], [place], [place], [place], [place]? NO o If yes, did you [...] BIN/FRANNIE POS / Plan: PPO $35 [place] [id number] / Product Type: PPO [id number] documented in this encounter Plan of Treatment Not on file documented as of this encounter Visit Diagnoses Not on filedocumented in this encounter Care Teams Loin Trimmer Relationship Specialty Start Date End Date Mariam Chapa MD [facility] [place] [address] PCP - General 07/21/06 documented as of this encounter
--- OUTSIDE RECORDS SUMMARY | 2024-09-08 11:19 | XMS_ITS | Encounter Summary ---
Author Organization [facility] Address [address] [place] [address] Care Team Providers Care Recreation Specialist Name Role Phone Mariam Chapa MD Primary Care Provider +1 -[phone] Encounter Details Date Type Department Care Team Description 03/13/2021 Orders Only Adult Medicine - [place] [address] [place] [address] Mariam Chapa MD [address] [place] [address] Muscle weakness (generalized) Social History Tobacco Use [...] (03/11/2021) 03/11/2021 Mariam Chapa MD LAB [facility] [employer] documented in this encounter Visit Diagnoses Diagnosis Muscle weakness (generalized) documented in this encounter Care Teams Recreation Specialist Relationship Specialty Start Date End Date Mariam Chapa MD [address] [place] [address] [facility] [place] [address] PCP - General 07/21/06 documented as of this encounter
--- OUTSIDE RECORDS SUMMARY | 2024-09-08 11:19 | XMS_ITS | Encounter Summary ---
Author Organization [employer] [facility] Address [address] [place] [address] Care Team Providers Care Accounts Payable Associate Name Role Phone Mariam Chapa MD Primary Care Provider +1 -[phone] Encounter Details Date Type Department Care Team Description 03/14/2021 Hospital Medical Records [address] [place] [address] Rox Benz NP Social History Tobacco Use [...] on filedocumented in this encounter Care Teams Accounts Payable Associate Relationship Specialty Start Date End Date Mariam Chapa MD [address] [place] [address] PCP - General 07/21/06 documented as of this encounter
--- OUTSIDE RECORDS SUMMARY | 2024-09-08 11:19 | XMS_ITS | Encounter Summary ---
Author Organization [facility] Address [address] [place] [address] Care Team Providers Care Delphi Developer Name Role Phone Mariam Chapa MD Primary Care Provider +1 -[phone] Reason for Visit * Reason Onset Date Comments refill request 02/16/2023 Encounter Details Date Type Department Care Team Description 02/16/2023 Refill Adult Medicine - [place] [address] [place] [address] Mariam Chapa MD [address] [place] [address] refill request Social History Tobacco Use Types [...] URBENZO, UROPIATES, UROXYCODONE, URBARBITUATE, PAINAMPHETAM, PAINCOCAINE, PAINCANNABIN FLOOR PRESS OPERATOR * Telephone Encounter - Maria Luisa Alberts - 02/16/2023 11:52 AM EDT Refill on med list Last office visit : 12/23/22 Last time with PCP: s Next office visit : 02/17/23 documented in this encounter Plan of Treatment Not on file documented as of this encounter Visit Diagnoses Not on filedocumented in this encounter Care Teams Delphi Developer Relationship Specialty Start Date End Date Mariam Chapa MD [address] [place] [address] PCP - General 07/21/06 documented as of this encounter
--- OUTSIDE RECORDS SUMMARY | 2024-09-08 11:19 | XMS_ITS | Clinical Summary ---
Author Organization [facility] Address [address] [place] [address] Care Team Providers Care Child Guidance Counselor Name Role Phone Mariam Chapa MD Primary Care Provider +1 -[phone] Allergies Active Allergy Reactions Severity Noted Date [...] Immunizations Name Administration Dates Next Due COVID-19 (Zmags) 03/27/2021 Influenza Vaccine-quadrivalent 4 Years Plus 03/31 Kdxzyas-Ohdgh-Mmhqeqgi + 02/18/2017 Awuqh-Tyhlg-Zthpyazx + 02/18/2017 PPD-RBMG 03/17/2017,02/18/2010 Ynlvlwo-Jybol-Lptihrjg + 02/18/2017 Varicella Titre-Positive + 02/18/2017 Family [...] (External Completion), Additional history exists Covid-19 Vaccine (2022-07 4 season) 2024 03/27/2021 CHOLESTEROL SCREENING 04/03/2024 04/03/2019 , 10/25/2018, 08/04/2012, Additional history exists COLON CANCER SCREENING 10/26/2024 10/26/2014 MAMMOGRAM 2024 12/31/2023, 08/0 07/2023, 12/29/2017 (External Completion of test per patient (Patient reports normal results)), Additional history exists INFLUENZA (Season Ended) 2025 021, 03/29/2018 (External Completion of Vaccination per patient) DTAP/TDAP/TD (2 - Td or Tdap) 03/31/2028 03/31/2018 (Refused) HEPATITIS C SCREENING Completed 04/03/2019 , 09/29/2013, 02/03/2011, Additional history exists Care Teams Child Guidance Counselor Relationship Specialty Start Date End Date Mariam Chapa, [address] [place] [address] PCP - General 2/21/07
--- OUTSIDE RECORDS SUMMARY | 2024-09-08 11:19 | XMS_ITS | Encounter Summary ---
Author Organization [facility] Address [address] [place] [address] Care Team Providers Care Pantry Goods Maker Name Role Phone Mariam Chapa MD Primary Care Provider +1 -[phone] Encounter Details Date Type Department Care Team Description 12/19/2020 Orders Only Adult Medicine - [place] [address] [place] [address] Mariam Chapa MD [address] [place] [address] Weight loss Social History Tobacco Use Types Packs/Day Years [...] Name Priority Date/Time Associated Diagnosis Comments CHG BLOOD COUNT COMPLETE AUT O&AUTO DIFRNTL WBC Routine 12/18/2020 Weight loss documented in this encounter Results * CBC (AUTO DIFF PLATELET) (12/18/2020) 12/18/2020 Mariam Chapa MD [facility] [employer] documented in this encounter Visit Diagnoses Diagnosis Weight loss Loss of weight documented in this encounter Care Teams Pantry Goods Maker Relationship Specialty Start Date End Date Mariam Chapa MD [address] [place] [address] [place] [address] PCP - General 07/21/06 documented as of this encounter
--- OUTSIDE RECORDS SUMMARY | 2024-09-08 11:19 | XMS_ITS | Encounter Summary ---
Author Organization [facility] Address [address] [place] [address] Care Team Providers Care Presbyterian Clergy Name Role Phone Mariam Chapa MD Primary Care Provider +1 -[phone] Reason for Visit * Reason Onset Date Comments Orders Call 12/18/2020 Encounter Details Date Type Department Care Team Description 12/18/2020 Telephone Adult Medicine - [place] [address] [place] [address] Mariam Chapa MD [address] [place] [address] Orders Call Social History Tobacco Use Types [...] otherwise normal, unfortunately since [facility]was done [facility] she cannot access it via [email or web address] I will send a copy to her [...] work from 12/10 be faxed over to [facility]. Pt would like to be called when this is done. documented in this encounter Plan of Treatment Not on file documented as of this encounter Visit Diagnoses Not on filedocumented in this encounter Care Teams Presbyterian Clergy Relationship Specialty Start Date End Date Mariam Chapa MD [address] [place] [address] PCP - General 07/21/06 documented as of this encounter
--- OUTSIDE RECORDS SUMMARY | 2024-09-08 11:19 | XMS_ITS | Encounter Summary ---
Author Organization [facility] Address [address] [place] [address] Care Team Providers Care Plating Engineer Name Role Phone Mariam Chapa MD Primary Care Provider +1 -[phone] Encounter Details Date Type Department Care Team Description 11/17/2023 Telephone Adult Medicine - [place] [address] [place] [address] Mariam Chapa MD [address] [place] [address] Social History Tobacco Use Types Packs/Day Years [...] on filedocumented in this encounter Care Teams Plating Engineer Relationship Specialty Start Date End Date Mariam Chapa MD [address] [place] [address] PCP - General 07/21/06 documented as of this encounter
--- OUTSIDE RECORDS SUMMARY | 2024-09-08 11:19 | XMS_ITS | Encounter Summary ---
Author Organization [facility] Address [address] [place] [address] Care Team Providers Care Automobile Service Advisor Name Role Phone Mariam Chapa MD Primary Care Provider +1 -[phone] Reason for Visit * Reason Onset Date Comments Vomiting 12/31/2020 Encounter Details Date Type Department Care Team Description 12/31/2020 Telephone Adult Medicine - [place] [address] [place] [address] Mariam Chapa MD [address] [place] [address] Vomiting Social History Tobacco Use Types Packs/Day [...] been getting. Pleaseadvise. Best phone number is [phone]. * Telephone Encounter - Raman Harley LPN [...] is having pt states she drove to [place] andf had to stop to vommit please [...] traveled recently to another state outside of [place], [place], [place], [place], [place], [place], [place]? NO o If yes, did you quarantine [...] alliance party insurance information Date of accident/Injury: How long has patient had these symptoms?: PCP: Millicent Chapa Payor: BIN/FRANNIE POS / Plan: PPO $25 [place] [id number] / Product Type: PPO [id number] documented in this encounter Plan of Treatment Not on file documented as of this encounter Visit Diagnoses Not on filedocumented in this encounter Care Teams Automobile Service Advisor Relationship Specialty Start Date End Date Mariam Chapa MD [address] [place] [address] PCP - General 07/21/06 documented as of this encounter
--- OUTSIDE RECORDS SUMMARY | 2024-09-08 11:19 | XMS_ITS | Encounter Summary ---
Author Organization [facility] Address [address] [place] [address] Care Team Providers Care Inclusion Teacher Name Role Phone Mariam Chapa MD Primary Care Provider +1 -[phone] Encounter Details Date Type Department Care Team Description 07/10/2021 Farm Management Adviser Report Medical Records [address] [place] [address] Jamie Montes De Oca MD Social History [...] on filedocumented in this encounter Care Teams Inclusion Teacher Relationship Specialty Start Date End Date Mariam Chapa MD [address] [place] [address] PCP - General 07/21/06 documented as of this encounter
--- OUTSIDE RECORDS SUMMARY | 2024-09-08 11:19 | XMS_ITS | Encounter Summary ---
Author Organization [employer] [facility] Address [address] [place] [address] Care Team Providers Care Spa Therapist Name Role Phone Mariam Chapa MD Primary Care Provider +1 -[phone] Encounter Details Date Type Department Care Team Description 04/05/2019 Telephone Adult Medicine - [place] [address] [place] [address] Mariam Chapa MD [address] [place] [address] Social History Tobacco Use Types Packs/Day Years [...] Type Priority Associated Diagnoses Orde r Schedule HEPATITIS B VACCINE ADULT 3 DOSE IM Immunizations/ Injection Routine Need for prophylactic vaccination and inoculation against viral hepatitis 1 Occurrences starting 04/05/2019 until 10/02/2019 documented as of this encounter Visit Diagnoses Diagnosis Need for prophylactic vaccination and inoculation against viral hepatitis- Primary documented in this encounter Care Teams Spa Therapist Relationship Specialty Start Date End Date Mariam Chapa MD [address] [place] [address] PCP - General 07/21/06 documented as of this encounter
--- OUTSIDE RECORDS SUMMARY | 2024-09-08 11:19 | XMS_ITS | Encounter Summary ---
Author Organization [facility] Address [address] [place] [address] Care Team Providers Care Salmon Troll Fisher Name Role Phone Mariam Chapa MD Primary Care Provider +1 -[phone] Encounter Details Date Type Department Care Team Description 08/30/2020 Orders Only Adult Medicine - [place] [address] [place] [address] Mariam Chapa MD [address] [place] [address] Arthritis (Primary Dx); Muscle weakness (generalized) Social History Tobacco Use [...] have Coronavirus / COVID-19? No / Unsure 08/28/2020 2:36 PM EDT documented as of this encounter Plan of Treatment Not on file documented as of this encounter Visit Diagnoses Diagnosis Arthritis- Primary Arthropathy, unspecified, site unspecified Muscle weakness (generalized) documented in this encounter Care Teams Salmon Troll Fisher Relationship Specialty Start Date End Date Mariam Chapa MD [address] [place] [address] PCP - General 07/21/06 documented as of this encounter
--- OUTSIDE RECORDS SUMMARY | 2024-09-08 11:19 | XMS_ITS | Encounter Summary ---
Author Organization [facility] Address [address] [place] [address] Care Team Providers Care Forest Science Professor Name Role Phone Mariam Chapa MD Primary Care Provider +1 -[phone] Encounter Details Date Type Department Care Team Description 03/15/2012 Wine Cellar Stock Clerk Report Medical Records [address] [place] [address] Social History Tobacco Use Types Packs/Day Years [...] on filedocumented in this encounter Care Teams Forest Science Professor Relationship Specialty Start Date End Date Mariam Chapa MD [address] [place] [address] PCP - General 07/21/06 documented as of this encounter
--- OUTSIDE RECORDS SUMMARY | 2024-09-08 11:19 | XMS_ITS | Encounter Summary ---
Author Organization [facility] Address [address] [place] [address] Care Team Providers Care Water Leak Repairer Name Role Phone Mariam Chapa MD Primary Care Provider +1 -[phone] Encounter Details Date Type Department Care Team Description 02/03/2024 Orders Only Adult Medicine - [place] [address] [place] [address] Kristine Evans MD Mass of upper inner quadrant of left breast Social History Tobacco Use Types Packs/Day Years [...] Procedure Name Priority Date/Time Associated Diagnosis Comments DX MAMMO INCL CAD BI Routine 12/31/2023 Mass of upper inner quadrant of left breast documented in this encounter Results * DX MAMMO INCL CAD BI (12/31/2023) 12/31/2023 Kristine Mccarthy MD MAMMOGRAPHY documented in this encounter Visit Diagnoses Diagnosis Mass of upper inner quadrant of left breast documented in this encounter Care Teams Water Leak Repairer Relationship Specialty Start Date End Date Mariam Chapa MD [address] [place] [address] PCP - General 07/21/06 documented as of this encounter
--- OUTSIDE RECORDS SUMMARY | 2024-09-08 11:19 | XMS_ITS | Encounter Summary ---
Author Organization [facility] Address [address] [place] [address] Care Team Providers Care Airplane Flight Attendant Name Role Phone Mariam Chapa MD Primary Care Provider +1 -[phone] Reason for Visit * Reason Onset Date Comments Letter 03/04/2021 Encounter Details Date Type Department Care Team Description 03/04/2021 Telephone Adult Medicine - [place] [address] [place] [address] Mariam Chapa MD [address] [place] [address] Letter Social History Tobacco Use Types Packs/Day [...] Encounter - Camilla Nolan M.A. - 03/05/2021 1:52 PM EDT Will advise patient when she comes in to tow picker letter in office at 3pm. * [...] needed for completion: juan When completed: Will tow picker-call when completed: Tel # [phone] documented in this encounter Plan of Treatment Not on file documented as of this encounter Visit Diagnoses Not on filedocumented in this encounter Care Teams Airplane Flight Attendant Relationship Specialty Start Date End Date Mariam Chapa, [address] [place] [address] PCP - General 07/21/06 documented as of this encounter
--- OUTSIDE RECORDS SUMMARY | 2024-09-08 11:19 | XMS_ITS | Encounter Summary ---
Author Organization [facility] Address [address] [place] [address] Care Team Providers Care Brick Cleaner Name Role Phone Mariam Chapa MD Primary Care Provider +1 -[phone] Encounter Details Date Type Department Care Team Description 05/28/2011 Team Assistant Report Medical Records [address] [place] [address] Vinnie Sprague Social History Tobacco Use Types [...] on filedocumented in this encounter Care Teams Brick Cleaner Relationship Specialty Start Date End Date Mariam Chapa, [address] [place] [address] PCP - General 07/21/06 documented as of this encounter
--- OUTSIDE RECORDS SUMMARY | 2024-09-08 11:19 | XMS_ITS | Encounter Summary ---
Author Organization [facility] Address [address] [place] [address] Care Team Providers Care Java Developer Analyst Name Role Phone Mariam Chapa MD Primary Care Provider +1 -[phone] Reason for Visit * Reason Onset Date Comments Faxed Order 02/21/2024 Faxed Order-[id number] Encounter Details Date Type Department Care Team Description 02/21/2024 Telephone Adult Medicine - [place] [address] [place] [address] Mariam Chapa MD [address] [place] [address] Faxed Order (Faxed Order-[id number]) Social History Tobacco Use Types Packs/Day Years [...] WHEN ORDER HAS BEEN FAXED Faxed order [id number] received from [facility], requesting signature from provider. Please sign and fax back to [phone]. Faxed order in PCP's folder ( orange) at check out. documented in this encounter Plan of Treatment Not on file documented as of this encounter Visit Diagnoses Not on filedocumented in this encounter Care Teams Java Developer Analyst Relationship Specialty Start Date End Date Mariam Chapa MD [address] [place] [address] PCP - General 07/21/06 documented as of this encounter
--- OUTSIDE RECORDS SUMMARY | 2024-09-08 11:19 | XMS_ITS | Encounter Summary ---
Author Organization [facility] Address [address] [place] [address] Care Team Providers Care Planer Offbearer Name Role Phone Mariam Chapa MD Primary Care Provider +1 -[phone] Reason for Referral * EXTERNAL (Routine) - Authorized/Booked Specialty Diagnoses / Procedures Referred By Conted t Referred To Contact Home Health Care / Home care Procedures REFERRAL TO HOME CARE Mariam Chapa MD [address] [place], [place] External Home Care Referral ID Status Reason Start Date Expiration Date V isits Requested Visits Authorized [id number] Authorized/B ooked 01/25/2024 01/24/2025 1 1 Reason for Visit * Reason Onset Date Comments Knee Pain 01/24/2024 Encounter Details Date Type Department Care Team Description 01/24/2024 Telephone Adult Medicine - [place] [address] [place], [place] [phone] Mariam Chapa MD [address] [place], [place] Knee Pain Social History Tobacco Use [...] injured her knee. She was seen a [facility] and the [facility]. She stated that [facility] was going to do the MRI of the knee, she is look for script for the wheelchair, shower chair, and wheeled walker. She is now lookin for [employer] services for the interim to help with [...] recently to another state outside of [place], [place], [place], [place], [place], [place], [place]? NO o If yes, did you [...] on filedocumented in this encounter Care Teams Planer Offbearer Relationship Specialty Start Date End Date Mariam Chapa MD [address] [place] [address] PCP - General 07/21/06 documented as of this encounter
--- OUTSIDE RECORDS SUMMARY | 2024-09-08 11:19 | XMS_ITS | Encounter Summary ---
Author Organization [facility] Address [address] [place] [address] Care Team Providers Care Tester Compressed Gases Name Role Phone Mariam Chapa MD Primary Care Provider +1 -[phone] Reason for Referral * EXTERNAL (Priority) - Authorized/Booked Specialty Diagnoses / Procedures Referred By Contac t Referred To Contact ORTHOPEDICS / Orthopedic Procedures REFERRAL TO ORTHOPEDICS (IN NETWORK) Mariam Chapa MD [address] [place], [place] [address] [place] [address] [place] [address] Referral ID Status Reason Start Date Expiration Date V isits Requested Visits Authorized [id number] Authorized/B ooked 07/28/2023 07/27/2024 1 1 Encounter Details Date Type Department Care Team Description 07/28/2023 Orders Only Adult Medicine - [place] [address] [place], [place] [phone] Mariam Chapa MD [address] [place], [place] Social History Tobacco Use Types Packs/Day [...] on filedocumented in this encounter Care Teams Tester Compressed Gases Relationship Specialty Start Date End Date Mariam Chapa MD [address] [place] [address] PCP - General 07/21/06 documented as of this encounter
--- OUTSIDE RECORDS SUMMARY | 2024-09-08 11:19 | XMS_ITS | Encounter Summary ---
Author Organization [facility] Address [address] [place] [address] Care Team Providers Care Drawing Supervisor Name Role Phone Mariam Chapa MD Primary Care Provider +1 -[phone] Encounter Details Date Type Department Care Team Description 08/19/2021 Sound Engineering Technician Report Medical Records [address] [place] [address] Abstract, Provider Social History Tobacco Use Types [...] on filedocumented in this encounter Care Teams Drawing Supervisor Relationship Specialty Start Date End Date Mariam Chapa MD [address] [place] [address] PCP - General 07/21/06 documented as of this encounter
--- OUTSIDE RECORDS SUMMARY | 2024-09-08 11:19 | XMS_ITS | Encounter Summary ---
Author Organization [facility] Address [address] [place] [address] Care Team Providers Care Junior Accountant Bookkeeper Name Role Phone Mariam Chapa MD Primary Care Provider +1 -[phone] Encounter Details Date Type Department Care Team Description 12/10/2020 Orders Only Adult Medicine - [place] [address] [place], [place] [id number] Mariam Chapa MD [address] [place] [address] Muscle weakness (generalized) (Primary Dx); Weight loss; [...] ACID (03/11/2021) 03/11/2021 Mariam Chapa MD LAB SAK Project * CBC (AUTO DIFF PLATELET) (12/18/2020) 12/18/2020 Mariam Chapa MD LAB KURT [employer] documented in this encounter Visit Diagnoses Diagnosis Muscle weakness (generalized)- Primary Weight loss Loss of weight Vitamin D deficiency Unspecified vitamin D deficiency documented in this encounter Care Teams Junior Accountant Bookkeeper Relationship Specialty Start Date End Date Mariam Chapa MD [address] [place] [address] PCP - General 07/21/06 documented as of this encounter
--- OUTSIDE RECORDS SUMMARY | 2024-09-08 11:19 | XMS_ITS | Encounter Summary ---
Author Organization [facility] Address [address] [place] [address] Care Team Providers Care Rotary Engraver Name Role Phone Mariam Chapa MD Primary Care Provider +1 -[phone] Reason for Visit * Reason Onset Date Comments Prior Authorization 07/01/2023 EMG Encounter Details Date Type Department Care Team Description 07/01/2023 Telephone Adult Medicine [address] [address] Mariam Chapa, [address] [place] [address] Prior Authorization (EMG) Social History Tobacco Use Types Packs/Day Years [...] encounter Miscellaneous Notes * Telephone Encounter - Jyoti Borjas - 07/01/2023 9:35 AM EST Call rec'd from patient regarding EMG. Order was placed wrong and then tc was routed to wrong dept.Order was faxed to [facility] dept today. Pt aware it was being faxed there today. documented in this encounter Plan of Treatment Not on file documented as of this encounter Visit Diagnoses Not on filedocumented in this encounter Care Teams Rotary Engraver Relationship Specialty Start Date End Date Mariam Chapa MD [address] [place] [address] PCP - General 07/21/06 documented as of this encounter
--- OUTSIDE RECORDS SUMMARY | 2024-09-08 11:19 | XMS_ITS | Encounter Summary ---
Author Organization [facility] Address [address] [place] [address] Care Team Providers Care Pattern Stamper Name Role Phone Mariam Chapa MD Primary Care Provider +1 -[phone] Reason for Visit * Reason Onset Date Comments Call From Hospital 11/03/2018 Encounter Details Date Type Department Care Team Description 11/03/2018 Telephone Adult Medicine - [place] [address] [place] [address] Mariam Chapa MD [address] [place] [address] Call From Hospital Social History Tobacco Use [...] 5:09 PM EDT Patient was seen at [facility] please obtain records. * Telephone Encounter - Allen Russel - 11/03/2018 4:57 PM EDT Hospital follow up appointment needed Hospital patient was treated at: [facility] Was this only an ER visit [...] on filedocumented in this encounter Care Teams Pattern Stamper Relationship Specialty Start Date End Date Mariam Chapa MD [facility] [place] [address] PCP - General 07/21/06 documented as of this encounter
--- OUTSIDE RECORDS SUMMARY | 2024-09-08 11:19 | XMS_ITS | Encounter Summary ---
Author Organization [facility] Address [address] [place] [address] Care Team Providers Care Typesetters Printer Name Role Phone Mariam Chapa MD Primary Care Provider +1 -[phone] Encounter Details Date Type Department Care Team Description 12/16/2018 Seat Pack Inspector Report Medical Records [address] [place] [address] Vincenzo Mc MD Social History Tobacco Use [...] on filedocumented in this encounter Care Teams Typesetters Printer Relationship Specialty Start Date End Date Mariam Chapa MD [address] [place] [address] PCP - General 07/21/06 documented as of this encounter
--- OUTSIDE RECORDS SUMMARY | 2024-09-08 11:20 | XMS_ITS | Encounter Summary ---
Author Organization [facility] Address [address] [place] [address] Care Team Providers Care Manufacturing Technologist Name Role Phone Mariam Diaz MD Primary Care Provider +1 -[phone] Reason for Visit * Reason Onset Date Comments TEST RESULTS 12/11/2013 Encounter Details Date Type Department Care Team Description 12/11/2013 Telephone Adult Medicine - [place] [address] [place] [address] Mariam Diaz MD [address] [place] [address] TEST RESULTS Social History Tobacco Use Types [...] Miscellaneous Notes * Telephone Encounter - Vilma Hector - 12/12/2013 9:45 AM EDT Pt returned phone call in regards to coming off the medication - prednisone - pt is having a lot ofproblems with her rotator cuffs - pt still is in a lot of pain - pt wants only to speak with Dr - her phone # is ok * Telephone Encounter - Mariam Diaz MD - 12/11/2013 6:24 PM EDT Called x 2 no response may call back if needed * Telephone Encounter - Lisa Rowley L.P.N. - 12/11/2013 4:41 PM EDT please review and advise * Telephone Encounter - Sheila Negrete - 12/11/2013 4:38 PM EDT Pt calling about her mri results, 6 months post op mri shows 3 rotator cuffs tears, swelling in herfemur bone head, would like to speak to dr diaz documented in this encounter Plan of Treatment Not on file documented as of this encounter Visit Diagnoses Not on filedocumented in this encounter Care Teams Manufacturing Technologist Relationship Specialty Start Date End Date Mariam Diaz MD [address] [place] [address] PCP - General 07/21/06 documented as of this encounter
--- OUTSIDE RECORDS SUMMARY | 2024-09-08 11:20 | XMS_ITS | Encounter Summary ---
Author Organization [facility] Address [address] [place] [address] Care Team Providers Care Log Haul Operator Name Role Phone Mariam Chapa MD Primary Care Provider +1 -[phone] Encounter Details Date Type Department Care Team Description 11/29/2013 Fountain Server Report Medical Records [address] [place] [address] Social History Tobacco Use Types Packs/Day Years [...] on filedocumented in this encounter Care Teams Log Haul Operator Relationship Specialty Start Date End Date Mariam Chapa MD [address] [place] [address] PCP - General 07/21/06 documented as of this encounter
--- OUTSIDE RECORDS SUMMARY | 2024-09-08 11:20 | XMS_ITS | Encounter Summary ---
Author Organization [facility] Address [address] [place] [address] Care Team Providers Care Ccu Nurse Name Role Phone Mariam Chapa MD Primary Care Provider +1 -[phone] Encounter Details Date Type Department Care Team Description 10/28/2013 Medical Appliance Maker Report Medical Records [address] [place] [address] Social History Tobacco Use Types Packs/Day Years [...] on filedocumented in this encounter Care Teams Ccu Nurse Relationship Specialty Start Date End Date Mariam Chapa MD [address] [place] [address] PCP - General 07/21/06 documented as of this encounter
--- OUTSIDE RECORDS SUMMARY | 2024-09-08 11:20 | XMS_ITS | Encounter Summary ---
Author Organization [facility] Address [address] [place] [address] Care Team Providers Care Inside Account Representative Name Role Phone Mariam Chapa MD Primary Care Provider +1 -[phone] Encounter Details Date Type Department Care Team Description 06/02/2013 Night Triage Doc Medical Records [address] [place] [address] Abstract, Provider Social History Tobacco Use Types [...] on filedocumented in this encounter Care Teams Inside Account Representative Relationship Specialty Start Date End Date Mariam Chapa, [address] [place] [address] PCP - General 07/21/06 documented as of this encounter
--- OUTSIDE RECORDS SUMMARY | 2024-09-08 11:20 | XMS_ITS | Encounter Summary ---
Author Organization [facility] Address [address] [place] [address] Care Team Providers Care Hairspring Assembler Name Role Phone Mariam Chapa MD Primary Care Provider +1 -[phone] Reason for Visit * Reason Onset Date Comments immunizations 03/08/2017 Encounter Details Date Type Department Care Team Description 03/08/2017 Telephone Adult Medicine - [place] [address] [place] [address] Mariam Chapa MD [address] [place] [address] immunizations Social History Tobacco Use Types Packs/Day Years [...] encounter Miscellaneous Notes * Telephone Encounter - Lisa Rowley L.P.N. - 03/10/2017 11:04 AM EDT Please book thanks * Telephone Encounter - Mariam Chapa MD - 03/08/2017 4:43 PM EDT Order done * Telephone Encounter - Carolina Snyder m.a. - 03/08/2017 4:23 PM EDT Order pended * Telephone Encounter - Carolina Day - 03/08/2017 4:16 PM EDT Pt is looking to get orders put in for a PPD test. Please advise documented in this encounter Plan of Treatment Not on file documented as of this encounter Results * TB INTRADERMAL TEST (03/19/2017) PPD Induration (PPD) 0mm 03/19/2017 Mariam Chapa MD LAB documented in this encounter Visit Diagnoses Diagnosis Screening examination for pulmonary tuberculosis- Primary documented in this encounter Care Teams Hairspring Assembler Relationship Specialty Start Date End Date Mariam Chapa MD [address] [place] [address] PCP - General 07/21/06 documented as of this encounter
--- OUTSIDE RECORDS SUMMARY | 2024-09-08 11:20 | XMS_ITS | Encounter Summary ---
Author Organization [facility] Address [address] [place] [address] Care Team Providers Care Dependency Case Manager Name Role Phone Mariam Chapa MD Primary Care Provider +1 -[phone] Encounter Details Date Type Department Care Team Description 10/11/2013 Networking Administrator Report Medical Records [address] [place] [address] Sarthak Fritz MD Social History Tobacco Use Types Packs/Day [...] on filedocumented in this encounter Care Teams Dependency Case Manager Relationship Specialty Start Date End Date Mariam Chapa MD [address] [place] [address] PCP - General 07/21/06 documented as of this encounter
--- OUTSIDE RECORDS SUMMARY | 2024-09-08 11:20 | XMS_ITS | Encounter Summary ---
Author Organization [facility] Address [address] [place] [address] Care Team Providers Care Hot Box Operator Name Role Phone Mariam Chapa MD Primary Care Provider +1 -[phone] Encounter Details Date Type Department Care Team Description 11/04/2013 Abstract Medical Records [address] [place] [address] Abstract, Provider Social History Tobacco Use Types [...] on filedocumented in this encounter Care Teams Hot Box Operator Relationship Specialty Start Date End Date Mariam Chapa MD [address] [place] [address] PCP - General 07/21/06 documented as of this encounter
--- OUTSIDE RECORDS SUMMARY | 2024-09-08 11:20 | XMS_ITS | Encounter Summary ---
Author Organization [facility] Address [address] [place] [address] Care Team Providers Care Herbicide Sprayer Name Role Phone Mariam Chapa MD Primary Care Provider [phone] Encounter Details Date Type Department Care Team Description 09/14/2013 Penal Officer Report Medical Records [address] [place] [address] Wale Nguyen MD Social History Tobacco Use [...] on filedocumented in this encounter Care Teams Herbicide Sprayer Relationship Specialty Start Date End Date Mariam Chapa MD [address] [place] [address] PCP - General 07/21/06 documented as of this encounter
--- OUTSIDE RECORDS SUMMARY | 2024-09-08 11:20 | XMS_ITS | Encounter Summary ---
Author Organization [facility] [employer] [facility] Address [address] [place] [address] Care Team Providers Care Brake Lining Curer Name Role Phone Mariam Chapa MD Primary Care Provider [phone] [phone] Encounter Details Date Type Department Care Team Description 01/26/2018 Hospital Medical Records [address] [place] [address] Abstract, Provider Social History Tobacco Use Types [...] on filedocumented in this encounter Care Teams Brake Lining Curer Relationship Specialty Start Date End Date Mariam Chapa MD [address] [place] [address] PCP - General 07/21/06 documented as of this encounter
--- OUTSIDE RECORDS SUMMARY | 2024-09-08 11:20 | XMS_ITS | Encounter Summary ---
[facility] Organization [facility] Address [address] [place] [address] Care Team Providers Care Ampoule Washing Machine Operator Name Role Phone Mariam Chapa MD Primary Care Provider [phone] Encounter Details Date Type Department Care Team Description 11/05/2013 Abstract Medical Records [address] [place] [address] Abstract, Provider Social History Tobacco Use Types [...] Date End Date Mariam Chapa MD [address] [place] [address] PCP - General 07/21/06 documented as of this encounter
--- OUTSIDE RECORDS SUMMARY | 2024-09-08 11:20 | XMS_ITS | Encounter Summary ---
Author Organization [facility] Address [address] [place] [address] Care Team Providers Care Contracts Paralegal Name Role Phone Mariam Chapa MD Primary Care Provider [phone] Reason for Visit * Reason Onset Date Comments TEST RESULTS 12/19/2013 Encounter Details Date Type Department Care Team Description 12/19/2013 Telephone Adult Medicine - [place] [address] [place] [address] Mariam Chapa MD [address] [place] [address] TEST RESULTS Social History Tobacco Use Types [...] Chapa MD - 12/19/2013 6:02 PM EDT [phone] (home) [phone] (work) Left message that test results were [...] on filedocumented in this encounter Care Teams Contracts Paralegal Relationship Specialty Start Date End Date Mariam Chapa MD [facility] [place] [address] PCP - General 07/21/06 documented as of this encounter
--- OUTSIDE RECORDS SUMMARY | 2024-09-08 11:20 | XMS_ITS | Encounter Summary ---
Author Organization [facility] Address [address] [place] [address] Care Team Providers Care Snaker Name Role Phone Mariam Chapa MD Primary Care Provider [phone] Encounter Details Date Type Department Care Team Description 09/02/2013 Orders Only Adult Medicine - [place] [address] [place] [address] Mariam Chapa MD [address] [place] [address] Diarrhea (Primary Dx) Social History Tobacco Use [...] Primary documented in this encounter Care Teams Snaker Relationship Specialty Start Date End Date Mariam Chapa MD [address] [place] [address] PCP - General 07/21/06 documented as of this encounter
--- OUTSIDE RECORDS SUMMARY | 2024-09-08 11:20 | XMS_ITS | Encounter Summary ---
Author Organization [facility] Address [address] [place] [address] Care Team Providers Care Director Apparel Name Role Phone Mariam Chapa MD Primary Care Provider [phone] [phone] Encounter Details Date Type Department Care Team Description 10/30/2013 Night Triage Doc Medical Records [address] [place] [address] Abstract, Provider Social History Tobacco Use Types [...] filedocumented in this encounter Care Teams Director Apparel Relationship Specialty Start Date End Date Mariam Chapa, [address] [place] [address] PCP - General 07/21/06 documented as of this encounter
--- OUTSIDE RECORDS SUMMARY | 2024-09-08 11:20 | XMS_ITS | Encounter Summary ---
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
--- OUTSIDE RECORDS SUMMARY | 2024-09-08 11:20 | XMS_ITS | Encounter Summary ---
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
== END 2024-09-08 11:31 | disposition home or self-care (01) ==
LOC: HO.PMC 10:29
PROVIDERS: PCP Internal Medicine; Referring Provider Physician Assistant Medical; Visit Provider Internal Medicine
DX: M25.571 Pain in right ankle and joints of right foot (principal); M25.572 Pain in left ankle and joints of left foot; G57.32 Lesion of lateral popliteal nerve, left lower limb; M25.569 Pain in unspecified knee; M79.605 Pain in left leg
CPT/HCPCS: 99214

== ENCOUNTER 2024-09-14 19:59 | Emergency (ER) | payer BC, SELFPAY ==
[2024-09-14 20:35] VITALS: BP 114/66; PULSE 95; RESP 18; TEMP 36.6; O2SAT 99; BMI 17.9
--- NOTE | 2024-09-14 20:35 | ED.GENADULT ---
HPI - General Adult General Chief complaint: Extremity Injury, Lower Stated complaint: left leg pain Time Seen by Provider: 09/14/24 20:59 Source: patient Mode of arrival: ambulatory Limitations: no limitations History of Present Illness ED Provider: HPI narrative: Patient's comes here for pain in the left peroneal area for last 2 months after her knee buckled out been seen by pain clinic taking Dilaudid without much relief also she taking Lyrica without much response Related Data Home Medications ?Medication ?Instructions ?Recorded ?Confirmed albuterol sulfate 90 mcg/actuation 2 puff inhalation Q4-6H PRN 04/07/22 09/08/24 aerosol inhaler SOB/Wheezing hydromorphone 2 mg tablet 2 mg PO TID 09/08/24 09/08/24 ibuprofen 400 mg tablet 400 mg PO Q8H PRN 09/08/24 09/08/24 lidocaine 5 % topical patch 1 patch topical DAILY 09/08/24 09/08/24 Previous Rx's ?Medication ?Instructions ?Recorded acetaminophen 650 mg/20.3 mL oral 650 mg (20.3 mL) PO Q4H PRN 02/01/24 solution moderate pain #0 mL lorazepam 0.5 mg tablet (Ativan) 0.5 mg PO TID PRN anxiety #7 tabs 02/01/24 polyethylene glycol 3350 17 gram 17 g PO DAILY PRN constipation #0 02/01/24 oral powder packet ea diclofenac sodium 1 % topical gel 4 g topical QID 30 days #100 grams 07/13/24 (Arthritis Pain (diclofenac)) ondansetron 4 mg disintegrating 4 mg PO Q8H PRN nausea and 07/13/24 tablet vomiting #7 tabs prednisone 20 mg tablet 40 mg (2 x 20 mg) PO DAILY #10 tabs 09/14/24 Allergies Allergy/AdvReac Type Severity Reaction Status Date / Time gluten [Gluten] Allergy Severe PT HAS Verified 09/14/24 20:38 CELIAC DISEASE morphine Allergy Severe itching/ashok Verified 09/14/24 20:38 h Sulfa (Sulfonamide Allergy Severe LUPUS-LIKE Verified 09/14/24 20:38 Antibiotics) benztropine [Cogentin] Allergy Intermediate Rash Verified 09/14/24 20:38 ciprofloxacin [From Cipro] Allergy Intermediate TENDONOPATH Verified 09/14/24 20:38 Y/NEUROPATH Y shellfish derived Allergy Intermediate Hives Verified 09/14/24 20:38 promethazine Allergy Unknown Unknown Verified 09/14/24 20:38 nitrofurantoin AdvReac Severe Drug Verified 09/14/24 20:38 [From Macrodantin] induced Hep Mandelamine Allergy Intermediate Drug Uncoded 09/08/24 10:40 induced Hep QUINOLONES Allergy Intermediate Unknown Uncoded 09/08/24 10:40 tramadol AdvReac Severe hand/feet Uncoded 09/08/24 10:40 buzzing Review of Systems Review of Systems: Yes all other systems are reviewed and are negative [facility] Past Medical History Medical History Methotrexate, rn long term care, current use Undifferentiated connective tissue disease Rheumatoid factor positive Post-COVID chronic cough Neuropathy Asthma Diverticulosis Kidney stone Celiac sprue Surgical History H/O cystoscopy S/P cardiac cath (~07/2020) Hx of excision of mass (~1999) Family History Family History Mother Cervical cancer Uterine cancer History of thyroid disorder Maternal Grandmother Diabetes Stroke Maternal Grandfather Diabetes Coronary artery disease Paternal Grandmother Uterine cancer Diabetes Stroke Paternal Grandfather Stroke Father Bladder cancer Social History Social History Household Members: Spouse Household Members Other:: Son Alcohol intake: never Patient Tobacco Use Status: Never used Tobacco Advance Directives: Yes Advance Directives on File: Yes Advance Directives Date on File: 04/27/22 Do you have a plan to hurt others: No Plan service: No 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 Oriented X3. No acute distress. Eyes: No pallor or icterus ENT: Pharynx normal. Oral Mucosa moist Neck: Normal inspection. Neck supple. CVS: Normal heart rate and rhythm. Pulses normal. Respiratory: No respiratory distress. Equal air entry bilateral, no wheezing/rales/rhonchi Abdomen: Soft and nontender. Bowel sounds are present, no mass palpable, no CVA tenderness Skin: Skin warm and dry. Normal skin color. Normal skin turgor. Extremities: No lower extremity edema. No calf tenderness tenderness at left peroneal on fibula head Neuro: Oriented X 3. No motor deficit. No sensory deficit.No cerebellar signs , cranial nerves II-XII intact Course Course Course Narrative: This is a rapid medical exam performed by Tim Ruiz [employer] COVERAGE MERCHANDISER: Additional HPI, ROS, PE not included below will be deferred to primary provider. Patient is a 63-year-old female presenting with complaint of severe left leg pain. Weakness from left knee to toes. States feels like a tourniquet is wrapped around mid thigh. PCP prescribed PO dilaudid, patient states it's not helping. Saw pain managment on Wednesday. Was supposed to have an MRI on Wednesday but it was denied by insurance. History of nerve impingement due to prior injury. Multiple workups for same complaint, will defer orders to primary provider. Medications Administered Discontinued Medications Generic Name Dose Route Start Last Admin Trade Name Freq PRN Reason Stop Dose Admin Hydromorphone HCl 2 mg 09/14/24 21:03 09/14/24 21:08 Hydromorphone Hcl 2 Mg Tablet PO 09/14/24 21:04 2 mg ONCE ONE Administration Lidocaine HCl 5 ml 09/14/24 21:38 09/14/24 21:41 Lidocaine Hcl 2 % Mpf 5 Ml Vial INFILTRATI 09/14/24 21:39 5 ml ONCE ONE Administration Ondansetron HCl 4 mg 09/14/24 21:10 09/14/24 21:13 Ondansetron Odt 4 Mg Tab.Rapdis TRANSLINGU 09/14/24 21:11 4 mg ONCE ONE Administration Prednisone 40 mg 09/14/24 21:38 09/14/24 21:41 Prednisone 20 Mg Tablet PO 09/14/24 21:39 40 mg ONCE ONE Administration Procedures Nerve Block Nerve Block 1: Local Anesthetic: lidocaine 2% Amount of anesthesia used (mL): 5 Side: left Nerve Blocks: peroneal Procedure Successful: Yes Patient Tolerated Procedure: well Complications: none Medical Decision Making Medical Decision Making [facility] Narrative: Patient with left peroneal nerve local injection of 2% lidocaine was given patient felt much better will discharge patient home Discharge Plan Discharge Clinical Impression: Left peroneal mononeuropathy Patient Disposition: Home, Self-Care Instructions: Peripheral Neuropathy (ED) Additional Instructions: Continue medications as prescribed by pain clinic Follow up with neurologist/pain clinic for further management Prednisone as prescribed Prescriptions: New prednisone 20 mg tablet 40 mg PO DAILY Qty: 10 0RF No Action acetaminophen 650 mg/20.3 mL Solution 650 mg PO Q4H PRN (Reason: moderate pain) Qty: 0 0RF polyethylene glycol 3350 17 gram Powder In Packet 17 g PO DAILY PRN (Reason: constipation) Qty: 0 0RF lorazepam [Ativan] 0.5 mg tablet 0.5 mg PO TID PRN (Reason: anxiety) Qty: 7 0RF albuterol sulfate 90 mcg/actuation HFA aerosol inhaler 2 puff inhalation Q4-6H PRN (Reason: SOB/Wheezing) ondansetron 4 mg tablet,disintegrating 4 mg PO Q8H PRN (Reason: nausea and vomiting) Qty: 7 0RF diclofenac sodium [Arthritis Pain (diclofenac)] 1 % gel 4 g topical QID 30 Days Qty: 100 3RF Rx Instructions: apply to bilateral knee lidocaine 5 % adhesive patch,medicated 1 patch topical DAILY hydromorphone 2 mg tablet 2 mg PO TID ibuprofen 400 mg tablet 400 mg PO Q8H PRN Print Language: Polish
[2024-09-14] MEDS: HYDROmorphone HCl 2 MG TABLET PO (21:08)
[2024-09-14] MEDS: Ondansetron ODT 4 MG TAB.RAPDIS TRANSLINGU (21:13)
[2024-09-14] MEDS: Lidocaine HCl 2 % MPF 5 ML VIAL INFILTRATI (21:41)
[2024-09-14] MEDS: predniSONE 20 MG TABLET 40 MG PO (21:41)
[2024-09-14 22:14] VITALS: BP 114/66; PULSE 95; RESP 18; TEMP 36.6; O2SAT 99
== END 2024-09-14 22:17 | disposition home or self-care (01) ==
PROVIDERS: Emergency Provider Internal Medicine
DX: G57.82 Other specified mononeuropathies of left lower limb (principal); M79.605 Pain in left leg
CPT/HCPCS: 64450; 99283; 99284; J2003

== ENCOUNTER 2024-09-29 08:50 | Outpatient (AMB) | payer BC, SELFPAY ==
--- NOTE | 2024-09-29 08:57 | A.OFFVIS_ITS ---
Vital Signs 09/29/24 09:00 Height 5 ft 1 in Weight 95 lb BMI 17.9 Intake Visit Reasons: OV-left knee, lower leg and dorsal foot Intake Note: Ruby is a 63 year old female who presents today for a follow up of her Left knee pain s/p Tibial Plateau Fx 2023 and deep peroneal neuropathy. She was seen in the ED 09/08/24 & 09/14/24 due to complaints of pain in the left knee - she was given a left peroneal nerve injection which provided her with relief. Currently states she continues to have severe pain. Allergies gluten [Gluten] Allergy (Severe, Verified 09/29/24 09:00) PT HAS CELIAC DISEASE morphine Allergy (Severe, Verified 09/29/24 09:00) itching/rash Sulfa (Sulfonamide Antibiotics) Allergy (Severe, Verified 09/29/24 09:00) LUPUS-LIKE benztropine [Cogentin] Allergy (Intermediate, Verified 09/29/24 09:00) Rash ciprofloxacin [From Cipro] Allergy (Intermediate, Verified 09/29/24 09:00) TENDONOPATHY/NEUROPATHY shellfish derived Allergy (Intermediate, Verified 09/29/24 09:00) Hives promethazine Allergy (Unknown, Verified 09/29/24 09:00) Unknown nitrofurantoin [From Macrodantin] Adverse Reaction (Severe, Verified 09/29/24 09:00) Drug induced Hep Mandelamine Allergy (Intermediate, Uncoded 09/29/24 09:00) Drug induced Hep QUINOLONES Allergy (Intermediate, Uncoded 09/29/24 09:00) Unknown tramadol Adverse Reaction (Severe, Uncoded 09/29/24 09:00) hand/feet buzzing Medication List - Last Reconciled 09/29/24 by Mary Beth Munroe MD acetaminophen 650 mg (20.3 mL) PO Q4H PRN albuterol sulfate 90 mcg/actuation 2 puffs inhalation Q4-6H PRN diclofenac sodium 1% (Arthritis Pain (diclofenac)) 4 grams topical QID 30 days hydromorphone 2 mg PO TID ibuprofen 400 mg PO Q8H PRN lidocaine 5% 1 patch topical DAILY lorazepam (Ativan) 0.5 mg PO TID PRN ondansetron 4 mg PO Q8H PRN polyethylene glycol 3350 17 grams PO DAILY PRN prednisone 40 mg (2 x 20 mg) PO DAILY HPI Comments Details: Last saw Ruby on 08/18/2024, please refer to my previous notes. Gregory text received at evening hours from Dr. Franks, advocating for further imaging such as MRI. I ordered MRI of ankle and knee, left. Left knee MRI denied by insurance, reason below. PT discharge summary dated 09/04/2024 reviewed. See below. Patient seen by Dr. Cervantes pain management 09/08/24. Leaning towards diagnosis of CRPS. Lumbar sympathetic block discussed but patient tells me today that she is unable to tolerate any spine injections, due to previous adverse reactions. She had gone to ER twice since last time I saw her, 09/08 and 09/14. On 09/14, lidocaine nerve block was done which according to patient, dramatically improved her pain, then she says for 8 hours at least. She was also prescribed prednisone which she could not tolerate. However, per her best recollection, on 09/15, she had an appointment with her PCP and was noted to have severe swelling of left knee and leg. She says her PCP was concerned about compartment syndrome. She was sent to [facility] ER. Ultrasound and CT angio at [facility] were reported to be normal. The edema improved and she was discharged from almost 24 hours stay at the ER. She describes that the left leg/knee could appear very deep purple, like a tourniquet was applied above the knee. She maintains that the pain is mostly on left lateral knee, lateral distal thigh, traveling down left lateral leg and left ankle. She wears compression stockings most of the time, but edema comes back whenever she does not. Pain level maintains at 9/10. Functional level is modified independent with walker 10 ft without pain. Unable to do stairs. Independent with rest of self cares. [facility] Medical History Methotrexate, care home, current use Undifferentiated connective tissue disease Rheumatoid factor positive Post-COVID chronic cough Neuropathy Asthma Diverticulosis Kidney stone Celiac sprue Surgical History H/O cystoscopy S/P cardiac cath (~07/2020) Hx of excision of mass (~1999) Family History Mother Cervical cancer Uterine cancer History of thyroid disorder Maternal Grandmother Diabetes Stroke Maternal Grandfather Diabetes Coronary artery disease Paternal Grandmother Uterine cancer Diabetes Stroke Paternal Grandfather Stroke Father Bladder cancer Social History Household Members: Spouse Household Members Other:: Son Alcohol intake: never Patient Tobacco Use Status: Never used Tobacco Advance Directives Date on File: 04/27/22 service: No 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 It is colder to touch. No edema on lower legs, bilateral. No knee effusion bilateral. No tenderness over medial or lateral joint line of the knees bilateral. No allodynia. Results Reviewed Results Reviewed: PT DC summary 09/04/24: Pt has been an active and motivated participant in her therapy in and out of the clinic. She has met most of her therapeutic goals however she had not progressed to walking independently without a device nor ambulating stairs; this is largely d/t fear avoidance behaviors and continued knee and foot pain as well as p erseverance over her condition despite extended PT with gradual return to function; her least restricted device at this time is 4WW which has encouraged increased independence and weight bearing without the fear of falling. Pt has ramps, stair lift and accessible bathroom she has been full weight bearing and ambulatory in 4WW where she was not weight bearing prior to therapy. She is I with her home program and is encouraged to increase her participation in HH chores and community with 4WW to promote increased comfort of walking. Dr. Cervantes notes (Pain Mangement 09/08/24): To address the persistent and severe pain in the left lower extremity, which appears to have some features consistent with CRPS, a lumbar sympathetic block was discussed to evaluate and exclude possible CRPS. MRI may also help assess potential anatomical issues, while continued physical therapy will aid functional recovery. Non-opioid pain management alternatives are recommended, especially given adverse NSAID effects and hydromorphone dependency concerns. Consider osteoporosis treatment for systemic improvement. Additional diagnostic and management strategies will be guided by upcoming MRI findings and patient re sponse to interventions. Patient was informed and verbally consented to the use of an ambient scribe for clinic note documentation during this visit. Discussion Notes During our discussion, I outlined the possible presence of CRPS contributing to chronic left lower extremity pain and advised pursuing a lumbar sympathetic block to determine potential sympathetically mediated pain. We carefully re viewed the risks, benefits, and alternatives, and the patient expressed understanding. Additionally, we discussed further diagnostic imaging to reassess the knee and ankle for structural concerns, as well as considering non-invasive pain management strategies to facilitate reduction in hydromorphone use. The patient expressed understanding of the proposed approach and the importance of follow-up and potential intervention modifications based on evolving findings. Patient Instructions - Attend scheduled MRI on Wednesday for knee and ankle assessment. - Follow pain management plan cautiously reducing hydromorphone use. - Continue with prescribed physical therapy emphasizing gait correction. - Consider initiation of osteoporosis treatment post-MRI results. - Maintain a pain log; report symptom changes promptly. - Seek immediate care if pain becomes intolerable or other symptoms worsen. Ordering Physician: Generic ED Physician Date of Service: 09/07/24 Procedure(s): XR knee LT 4V Accession Number(s): [id number] cc: Generic ED Physician; Millicent Chapa MD~ CLINICAL HISTORY: pain 4 view left knee Comparison: MR/TN - MR KNEE LT WO CON - 06/02/24 20:[address]/SR - CT KNEE LT WO IV CON - 05/29/24 16:44 EST CR/SR - XR KNEE LT 3V - 05/29/24 15:02 EST Findings: Osteopenia. No acute fracture or dislocation. No joint effusion. No radiopaque foreign body. IMPRESSION: 1. No acute osseous injury. This document has been electronically signed by: Ioana Villalpando MD on 09/08/2024 00:18:38 Ordering Physician: Lana Stewart PA-C Date of Service: 06/02/24 Procedure(s): MR knee LT wo con Accession Number(s): [id number] cc: Millicent Chapa MD; Lana Stewart PA-C~ ADDENDUM This document has been electronically signed by: Garcia La MD on 06/02/2024 21:29:40 ADDENDUM: There is no obvious edema within or surrounding the saphenous nerve to suggest injury. If clinical suspicion for saphenous nerve injury is high, a high-resolution MR protocol could be utilized to better assess the nerve. This document has been electronically signed by: Garcia La MD on 06/06/2024 21:51:55 Addendum Dictated By: Garcia La MD Addendum Signed By: <Electronically signed by Garcia La MD in OV> 06/06/242152 Addendum Cosigned By: DD/ /22/2128 TD/TT: 06/06/2412/22/2150 CLINICAL HISTORY: <OBR.31.1><OBR.31.1.1>M23.92 - Unspecified internal derangement of left knee Pain </OBR.31.1.1><OBR.31.1.2> intermittent numbness radiating through lower left extremity. Instability on left knee with reduced range of motion.</OBR.31.1.2></OBR.31.1> MR left knee without gadolinium Comparison: CT/SR - CT KNEE LT WO IV CON - 05/29/24 16:44 EST Findings: Bone marrow edema in the lateral tibial plateau with a corresponding T1 hypointense line. This likely represents a stress fracture. No joint effusion. Anterior and posterior cruciate ligaments are intact. Collateral ligaments are intact. No disruption of the patellar retinacula or iliotibial band. No tears of the quadriceps, patellar, popliteus, or flexor tendons. Horizontal tear in through the lateral meniscus extending into the posterior horn. Normal medial meniscus. IMPRESSION: 1. Horizontal tear in the lateral meniscus. 2. Findings in the lateral tibial plateau likely represent a mild stress fracture. This document has been electronically signed by: Garcia La MD on 06/02/2024 21:29:40 EMG 08/02/24: FINDINGS: Left peroneal nerve, recording EDB muscle, showed prolonged distal latency, normal amplitude and normal conduction velocity. Left peroneal nerve, recording TA muscle, showed small amplitudes. No conduction block across fibular neck. Left tibial, sural and superficial peroneal nerves were within normal. Concentric needle EMG was performed in selected muscles of the left lower extremity. Study did not reveal signs of electric abnormalities as shown in the table above. IMPRESSION: 1. This is an abnormal study. 2. 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 3. There is no electrodiagnostic evidence for tibial neuropathy. lumbosacral plexopathy, lumbar radiculopathy, or peripheral neuropathy. CLINICAL COMMENT: Continue physical therapy. Consider repeat NCS/EMG in 6 months to evaluate progress. MRI knee denial: our doctor is checking you for a broken bone in your knee. Your doctor ordered an MRI of your knee. An MRI is a way to take pictures of the inside of your body. This test should be used when x-ray results were unclear. We reviewed the notes we have. The notes do not show that your x-ray results were unclear. Based on the information we have, this test is not medically necessary. Assessment & Plan Assessment & Plan (1) Left lateral knee pain: Code(s): M25.562 - Pain in left knee Category: Medical (2) Left lateral ankle pain: Code(s): M25.572 - Pain in left ankle and joints of left foot Category: Medical (3) CRPS (complex regional pain syndrome type II): Code(s): G56.40 - Causalgia of unspecified upper limb Category: Medical Qualifiers: Complex regional pain syndrome affected site: lower extremity Laterality: left Qualified Code(s): G57.72 - Causalgia of left lower limb (4) Peroneal neuropathy: Code(s): G57.30 - Lesion of lateral popliteal nerve, unspecified lower limb Category: Medical Qualifiers: Laterality: left Qualified Code(s): G57.32 - Lesion of lateral popliteal nerve, left lower limb Plan Most of her more recent symptoms are on the left lateral aspect of the knee, distal ITB, radiating down to the left lateral leg and ankle. Per her report, left leg gets swollen if not using compression stockings. She describes paresthesias and skin discoloration. All of the symptoms are suggestive to me of CRPS type 2 diagnosis. EMG that I have done also left deep peroneal neuropathy, consistent with distribution of her symptoms. Last left knee MRI 06/02/2024 reported lateral meniscal tear, which was already present in the past, seen in previous MRIs. Please see my past notes regarding this. Patient denies any new injury since last MRI. But she has had multiple exacerbations of both pain and swelling. And inability to progress further on her functional level. She remains modified independent on a walker level, up to 10 ft ambulating without pain only. She is still unable to do stairs. Left knee MRI report also mentioned if there is any question of nerve issue that a high-resolution MRI maybe more suitable. A repeat left knee MRI noncontrast was denied by insurance. As far as our office is aware, left ankle MRI was approved and pending schedule. 1. We we will look into getting a left knee MRI high-resolution that can evaluate the peroneal nerve and any soft tissue/ligaments/tendon that could explain persistent left lateral knee pain. We are going to find out if our radiology department can do such study or if we need to refer externally. I believe obtaining an MRI would be beneficial to her mental state and would help her get over barriers to achieving a more independent functional level. 2. For management of CRPS, we will most likely defer to Dr. Cervantes. Discussed with patient, she is aware. 3. She will schedule left ankle MRI. As far as we are aware, the order is under order extract wringer and it was approved. If she is informed otherwise by Radiology Department, she will inform us back. 4. She can rest from PT for now. Continue home exercises learned from PT. Encouraged continued active ambulatory lifestyle, within instructions that PT gave her. She will discuss above with her so that we are all on the same page and no unnecessary texts outside of office hours would be needed. Assessment and plan discussed with patient, and patient was agreeable. All questions were answered thoroughly. Follow up every 6 weeks to further evaluate progress and functional level, also pending results. Mary Beth Munroe MD, KACEY Board Certified, [place] Board of Physical Medicine and Rehabilitation (ABPMR) Board Certified, [place] Board of Electrodiagnostic Medicine (ABEM) Coding Level of Care Code Est Pt Level 4 (30221) Complex EM visit Add On G2211 Diagnoses Left lateral knee pain M25.562 Left lateral ankle pain M25.572 Complex regional pain syndrome type 2 of left lower extremity G57.72 Complex regional pain syndrome affected site: lower extremity Laterality: left Neuropathy of left peroneal nerve G57.32 Laterality: left
[2024-09-29 09:00] VITALS: BMI 17.9
--- OUTSIDE RECORDS SUMMARY | 2024-09-29 09:19 | XMS_ITS | Encounter Summary ---
Author Organization [facility] Address [address] [place] [address] Care Team Providers Care Truck Leasing Manager Name Role Phone Millicent Chapa MD Primary Care Prov ider Reason for Visit * Reason Onset Date Comments Medication Problem 08/28/2024 HYDROmorphone (Dilaudid) 2 mg tablet Encounter Details Date Type Department Care Team (Late st Contact Info) Description 08/28/2024 Telephone Adult Medicine [facility] [address] [place] [address] Fredrick Munoz PA [address] [place] [address] Medication Problem (HYDROmorphone (Dilaudid) 2 mg tablet) [...] EDT Old message patient received this through [employer] * Carolina Day - 08/28/2024 2:36 PM EDT Medication Problem: What is the name of the medication patient is having a problem with?: HYDROmorphone (Dilaudid) 2 mgtablet What is the problem?: 2MG is on backorder and not available at the [facility] selected, please send alternative per fax Who is calling about the problem? : A pharmacist: Pharmacy: [facility] Pharmacist Name: x Pharmacy Is this a NEW medication?: no How long has the patient been taking this medication? NA Who prescribed this medication for the patient? Dr. Cruz Who is patients PCP?: Millicent Chapa MD Payor: [facility] / Plan: [facility] PPO / Product Type: *No Product type* / documented in this encounter Plan of Treatment Not on file documented as of this encounter Visit Diagnoses Not on filedocumented in this encounter Care Teams Truck Leasing Manager Relationship Specialty Start Date End Date Millicent Chapa MD [address] [place] [id number] PCP - General 07/21/06 documented as of this encounter
--- OUTSIDE RECORDS SUMMARY | 2024-09-29 09:19 | XMS_ITS | Encounter Summary ---
Author Organization [facility] Address [address] [place] [address] Care Team Providers Care Laboratory Helper Name Role Phone Millicent Chapa MD Primary Care Prov ider Reason for Visit * Reason Onset Date Comments information needed/provider call back 09/20/2024 Encounter Details Date Type Department Care Team ([facility] Contact Info) Description 09/20/2024 Telephone Adult Medicine - [place] [address] [place] [phone] Millicent Chapa MD [address] [place] [address] information needed/provider call back Social History Tobacco Use Types Packs/Day Years [...] as of this encounter Progress Notes * Vee Munoz - 09/20/2024 11:15 AM EDT Pt was seen at [facility] 09/15/24 and has some questions for Dr. Eden please contact pt to advise. Thank you documented in this encounter Plan of Treatment Not on file documented as of this encounter Visit Diagnoses Not on filedocumented in this encounter Care Teams Laboratory Helper Relationship Specialty Start Date End Date Millicent Chapa MD [address] [place] [address] PCP - General 07/21/06 documented as of this encounter
--- OUTSIDE RECORDS SUMMARY | 2024-09-29 09:19 | XMS_ITS | Encounter Summary ---
Author Organization [facility] Address [address] [place] [address] Care Team Providers Care Handle Sander Operator Name Role Phone Millicent Chapa MD Primary Care Prov ider Reason for Referral * Consultation (Routine) - Pending Review Specialty Diagnoses / Procedures Referred By Lillian arroyo Referred To Contact Pain Medicine Diagnoses Complex regional pain syndrome type 1 of left lower extremity Millicent Chapa MD [address] [place], [place] Phone: tel: fax: Referral ID Status Reason Start Date Expiration Date Visits Requested Visits Authorized [id number] Pending Review Specialty Services Required 09/18/2024 09/18/2025 1 1 Scheduling Instructions 2. Another referral sent to [facility] on [address], [place] [address] for evaluation for complex regional pain syndrome and peroneal nerve management. Fax number is [phone]. Reason for Visit * Reason Onset Date Comments Referral 09/18/2024 Encounter Details Date Type Department Care Team (Late st Contact Info) Description 09/18/2024 Telephone Adult Medicine - [place] [address] [place] [phone] Millicent Chapa MD [address] [place], [place] Referral Social History Tobacco Use Types Packs/Day Years [...] as of this encounter Progress Notes * Millicent Chapa MD - 09/18/2024 1:47 PM EDT Please pend referrals thank you * Amina Baez RN - 09/18/2024 1:13 PM EDT Printed ER note and forwarded to PCP along with this encounter Patient does not want to come in for a follow up here, wants referrals. * Chun Overton - 09/18/2024 12:31 PM EDT Pt was seen at [facility] for left leg pain after being sent there from on Wednesday09/15/24. Pt was discharged from the hospital on 09/16/24. Attempted to send msg from hospital f/u but pt wants to just have referrals ordered for [place]. Needs this sent to [facility] for complex regional pain syndrome and peroneal nerve entrapment faxed to [phone]. Another referral sent to [facility] on [address], [place] [address] for evaluation for complex regional pain syndrome and peroneal nerve management. Fax number is [phone]. Lastly there is a referral for [facility] with Dr Segura, NPI # [id number], at [facility] on [address], [place] [id number] faxed to [phone]. Pt does not feel she can wait for a hospital f/u. Pt can be called back at [phone], thx. documented in this encounter Plan of Treatment Scheduled Referrals Name Type Priority Associated Diagnoses Order Schedule Ambulatory referral to Pain Medicine Outpatient Referral Routine Complex regional pain syndrome type 1 of left lower extremity 1 Occurrences starting 09/18/2024 until 09/18/2025 documented as of this encounter Visit Diagnoses Diagnosis Complex regional pain syndrome type 1 of left lower extremity- Primary documented in this encounter Care Teams Handle Sander Operator Relationship Specialty Start Date End Date Millicent Chapa MD [address] [place] [address] PCP - General 07/21/06 documented as of this encounter
--- OUTSIDE RECORDS SUMMARY | 2024-09-29 09:19 | XMS_ITS | Clinical Summary ---
Author Organization [facility]. Address [address] [address] Phone Care Team Providers Care Strategic Accounts Manager Name Role Phone Millicent Chapa MD [...] hours if needed for mild pain Active Active Problems Problem Noted Date Diagnosed Date Polyneuropathy in diseases classified elsewhere 08/23/2024 Edema 08/22/2024 Shoulder pain 02/05/2014 Overview (08/22/2024): Shoulder pain Disorder of rotator cuff 06/15/2013 Overview (08/22/2024): Rotator cuff syndrome Resolved Problems Problem Noted Date Diagnosed Date Resolved Date Other asthma 08/22/2024 08/23/2024 Encounters Date Type Department Care Team Description 08/29/2024 Orders Only [facility] [address] [phone] Brock Johnson MD Other asthma; Personal history of kidney stones 08/22/2024 2:15 PM EDT Office Visit [facility] [address] [phone] Brock Johnson MD Edema, not otherwise specified (Primary Dx); Other asthma from Last 3 Months Immunizations Immunization Administration Dates Next Due Influenza, MDCK, Quadrivalent, with preservative 04/14/2021 Link SARS-COV-2 03/27/2021 MMR 02/18/2017 MMRV 02/18/2017 PPD [...] Office Visit [facility] [address] [phone] Brock Johnson MD [address] [phone] Health Maintenance Due Date Last Done Comments [...] Chloride 106.0 99.0 - 108.0 eGFR Non-Afr Hong [place]er 60 08/11/2024 Historical Provider LAB BLOOD ORDERABLES Isabella l Result from Last 3 Months Insurance [facility] Care Teams Strategic Accounts Manager Relationship Specialty Start Date End Date Millicent Chapa MD [address] [place] [address] PCP - General Internal Medicine 08/22/24
--- OUTSIDE RECORDS SUMMARY | 2024-09-29 09:19 | XMS_ITS | Encounter Summary ---
Author Organization [facility] Address [address] [place] [address] Care Team Providers Care Agriculture Research Director Name Role Phone Millicent Chapa MD Primary Care Prov ider Reason for Visit * Reason Onset Date Comments imaging 08/29/2024 Encounter Details Date Type Department Care Team (Late st Contact Info) Description 08/29/2024 Telephone Adult Medicine - [place] [address] [place] [phone] Millicent Chapa MD [address] [place] [address] imaging Social History Tobacco Use Types Packs/Day [...] 1:55 PM EDT Spoke to Roman at [facility] and pt canceled the appt so no clearance on diagnosis needed. * Gloria Castillo - 08/29/2024 10:51 AM EDT Spoke adam campbell from [facility] Patient is going in for a US Abdomen Complete but the diagnosis states leg swelling Please call her back at [phone] documented in this encounter Plan of Treatment Not on file documented as of this encounter Visit Diagnoses Not on filedocumented in this encounter Care Teams Agriculture Research Director Relationship Specialty Start Date End Date Millicent Chapa MD [address] [place] [address] PCP - General 07/21/06 documented as of this encounter
--- OUTSIDE RECORDS SUMMARY | 2024-09-29 09:19 | XMS_ITS | Encounter Summary ---
Author Organization [employer] Address [address] [place] [address] Care Team Providers Care Felt Finisher Name Role Phone Millicent Chapa MD Primary Care Prov ider Encounter Details Date Type Department Care Team (Late st Contact Info) Description 09/27/2024 9:00 AM EDT Telemedicine Adult Medicine [facility] [address] [place] [phone] Fredrick Munoz PA [address] [place] [address] Chronic pain of left knee (Primary Dx); Left leg swelling; Left leg weakness; Opioid contract exists Social History Tobacco Use Types Packs/Day Years [...] encounter Progress Notes * TENISHA Soliz - 09/27/2024 9:00 AM EDTAssociated Problem(s): Chronic pain of left knee I spent 45 minutes for this encounter with the combination of initial chart review, review of outside documentation, appropriate labs and imaging, patient interview and appropriate physical examination. This excludes any separately billable procedures. * TENISHA Soliz - 09/27/2024 9:00 AM EDTAssociated Problem(s): Opioid contract exists She is doing well on the hydromorphone 3 times daily and will continue with this. Discussed signs and symptoms warranting reevaluation. Risks, benefits, and side-effects of the medication were discussed and the patient expressed verbalunderstanding and consents to the plan. Followup in 3 months with PCP This note was created using dictation software and may contain syntax and grammar errors. * TENISHA Soliz - 09/27/2024 9:00 AM EDT Telemedicine Visit Chief Complaint Ruby Tarango is a 63 y.o. female presenting for No chief complaint on file. The patient received guidance on receiving healthcare through telehealth, including the use of HIPAA privacy -compliant technology for remote communication and its associated privacy risks. The patient was also informed of the limitations of treatment provided through telehealth and that in the event of a lost or failed video connection, the provider may call back or reschedule the visit. Alternatively, the patient may opt for an in-person visit. The patient gave consent for the use of video communication and provided care and confirmed that they were in a quiet and private location to discuss their health freely. The patient understands the visit will be submitted to their insurance and that they are responsible for any copay or deductible charges. Additionally, if the patient is LimitedEnglish Proficient, deaf, or hard of hearing, speech impaired, or has another disability which impairs their ability to communicate, the services of a qualified official court interpreter will be provided during the visit. Patient???s Location: Home Provider???s Location: [facility] Total Time: 45 minutes Patient with chronic knee pain after tibial plateau fracture on chronic opioid analgesics from PCP having video visit for follow up. Her pain had been out of control in the knee and left foot and went to the ER. Didn't feel she had a clear diagnosis or treatment plan. Went to [facility]. [place] very dismissed by provider. Was given toradol. I didn't ask for any opiates . Symptoms had changed to weakness in the lower left extremity from patella down to foot. [place] like a floppy foot. Saw pain management Dr. Miranda at [facility]. Left without a plan. The next Wednesday, went to [facility] ordered by Dr. Cartagena and they didn't have me on the schedule Wednesday they called her back and the insurance had cancelled the MRI. She states insurance had never been given the results of the MRI of the ankle. She states I feel I'm getting the worst care in the world From that office. The ankle is swelling, painful, tingling. Can't bear weight on the left. She went to the ER a second time because her pain was out of control with a big fat swollen ankle and lateral knee . 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 She saw Dr. Eden the next day. Her foot was purple, red, freezing cold Had weak pulses and lymphedema. States she was told to go to [facility] due risk of critical ischemia. She didn't have a way to get there. Ended up at [facility]. US and ct angio showed no thrombus. The next day the swelling was down without intervention. She has an appt with [facility] neurosurgery on October 02. She was also given a referral for neuroPT. She states all of her symptoms only occur when she flexes her knee. She feels there is some sort ofobstructive process because this happens with flexion and results in increased swelling. It all started with the stretch and strain injury on her steps in July just as she felt she had been recovering well. Taking hydromorphone every 8 hours and tylenol for breakthrough. She is awaiting referral for [facility] pain management as well. This was placed on the . She is seeing Dr. Cartagena this Wednesday and hopes to push for a repeat MRI. P4 cream, gabapentin, cyclobenzaprine and baclofen along with lidocaine. The following portions of the patient's history were reviewed by a provider in this encounter and updated as appropriate: Current Outpatient Medications: albuterol HFA (PROAIR HFA ; PROVENTIL HFA ; VENTOLIN HFA) 90 mcg/actuation inhaler, Inhale 2 Puffs into the lungs every 4 hours as needed for Cough or Wheezing., Disp: , Rfl: HYDROmorphone (Dilaudid) 2 mg tablet, Take 1 tablet (2 mg total) by mouth every 8 (eight) hours for14 days. Max Daily Amount: 6 mg, Disp: 42 each, Rfl: 0 ibuprofen (MOTRIN ORAL), Take by mouth., Disp: , Rfl: LORazepam (ATIVAN) 0.5 mg tablet, Take 1 tablet (0.5 mg total) by mouth 2 (two) times a day. Max Daily Amount: 1 mg, Disp: 56 tablet, Rfl: 2 ondansetron ODT (ZOFRAN-ODT) 4 mg disintegrating tablet, Take 1 Tablet by mouth every 8 hours as needed for Nausea (prn). Take 1 Tablet by mouth every 8 hours as needed., Disp: , Rfl: pregabalin (LYRICA) 25 mg capsule, Take 1 capsule (25 mg total) by mouth 1 (one) time each day. MaxDaily Amount: 25 mg, Disp: 30 capsule, Rfl: 5 Methenamine mandelate, Nitrofurantoin, Bee venom protein (honey bee), Benztropine, Ciprofloxacin-hydrocortisone, Codeine, Gluten, Iodinated contrast media, Prochlorperazine maleate, Quinolones, Shellfish containing products, Shellfish derived, and Sulfa (sulfonamide antibiotics) Review of Systems Constitutional: Negative. HENT: Negative. Respiratory: Negative. Cardiovascular: Negative. Per HPI Depression Screening (PHQ2/9): Vital Signs: (Reported by patient) There were no vitals taken for this visit. PHYSICAL EXAM DEFERRED DUE TO TELEMEDICINE Physical Exam HENT: Head: Normocephalic and atraumatic. Pulmonary: Comments: Patient speaking in clear sentences with no cough or other adventitious respiratory sounds. Neurological: Mental Status: She is alert. Assessment & Plan Chronic pain of left knee I spent 45 minutes for this encounter with the combination of initial chart review, review of outside documentation, appropriate labs and imaging, patient interview and appropriate physical examination. This excludes any separately billable procedures. Left leg swelling Patient gives very thorough history of her current progress and I am unsure what precisely is goingon. The fact that the swelling seems to be happening only after flexion yet there are no vascular abnormalities per her report is vexxing regarding getting the appropriate diagnosis. Left leg weakness She will be following up with physiatry as well as specialists in [place] for further evaluation Opioid contract exists She is doing well on the hydromorphone 3 times daily and will continue with this. Discussed signs and symptoms warranting reevaluation. Risks, benefits, and side-effects of the medication were discussed and the patient expressed verbalunderstanding and consents to the plan. Followup in 3 months with PCP This note was created using dictation software and may contain syntax and grammar errors. TENISHA Soliz ADULT MEDICINE - [address] [phone] Dept: [phone] Dept Date of Visit: 09/27/2024 This patient was seen today through a telehealth modality, via Televideo. The patient has provided full consent to use this technology and understands the risks and benefitsof proceeding and has been informed that this telehealth visit will be billed to their insurance company. This visit was performed at Medical Office The patient was Home Actual Time: 45 min documented in this encounter Plan of Treatment Not on file documented as of this encounter Visit Diagnoses Diagnosis Chronic pain of left knee- Primary Left leg swelling Left leg weakness Muscle weakness (generalized) Opioid contract exists documented in this encounter Discontinued Medications Medication Sig Discontinue Reason Start Date End Da te predniSONE (DELTASONE) 20 mg tablet Take 1 tablet (20 mg total) by mouth 1 (one) time each day. 2 tabs a day 09/14/2024 09/27/2024 documented as of this encounter Care Teams Felt Finisher Relationship Specialty Start Date End Date Millicent Chapa MD [address] [place] [id number] PCP - General 07/21/06 documented as of this encounter
--- OUTSIDE RECORDS SUMMARY | 2024-09-29 09:19 | XMS_ITS | Encounter Summary ---
Author Organization [facility] Address [address] [place] [address] Care Team Providers Care Managing Cognitive Engineer Name Role Phone Millicent Chapa MD Primary Care Prov ider Reason for Visit * Reason Onset Date Comments Knee Pain 09/20/2024 Encounter Details Date Type Department Care Team (Late st Contact Info) Description 09/20/2024 Telephone Adult Medicine - [place] [address] [place] [phone] Millicent Chapa MD [address] [place] [address] Knee Pain Social History Tobacco Use Types [...] Progress Notes * Millicent Chapa MD - 09/20/2024 5:13 PM EDT Spoke to patient * Amina Baez RN - 09/20/2024 1:30 PM EDT Patient transferred from [facility] Woke with swelling. Flexing knee triggers the pain Sharp stabbing pain lateral ankle into tibia Feels exacty whe had the tibial fracture When walking has weakness on lateral side. Sharp stabbing pain knee. Left ankle pain radiating lateral side with tingling and numbness Weakness in leg is getting worse along with the pain Has had to take the hyrdomorphone three times a day I'm not asking for more medicine Patient is very tearful on the phone. [employer] Developer is away through the beginning of September Asking if PCP will order soft tissue imaging based on what you saw on Wednesday? Trying very hard to avoid the ER. She is asking for PCP to call her directly * Jessie Castillo - 09/20/2024 1:23 PM EDT Patient call requires triage: Symptoms patient is presenting:pt called hysterical crying in pain How long has patient had these symptoms?: 3 days- today states something is wrong For ALL patients calling to schedule any [...] recently to another state outside of [place], [place], [place], [place], [place], [place], [place]? no o If yes, did you [...] yes, gather 3rd democrat insurance information Third Libertarian Information: not applicable PCP: Millicent Chapa MD Payor: GUNNAR Caputo [place] / Plan: DELPHINE SOLIZ PPO / Product Type: *No Product type* / documented in this encounter Plan of Treatment Not on file documented as of this encounter Visit Diagnoses Not on filedocumented in this encounter Care Teams Managing Cognitive Engineer Relationship Specialty Start Date End Date Millicent Chapa MD [address] [place] [address] PCP - General 07/21/06 documented as of this encounter
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
--- OUTSIDE RECORDS SUMMARY | 2024-09-29 09:20 | XMS_ITS | Clinical Summary ---
Author Organization [facility] [address] [facility] lding Address [address] [place] [address] Phone Care Team Providers Care Enterprise Integration Developer Name Role Phone Millicent Chapa MD [...] 25 mg 30 capsule 5 08/11/19 25 025 Active HYDROmorphone (Dilaudid) 2 mg tabletIndications :Pain of left heel,Chronic pain of left knee,Closed fracture of left tibial plateau, sequela Take 1 tablet (2 mg total) by mouth every 8 (eight) hours for 14 days. Max Daily Amount: 6 mg 42 each 09/26/19 25 025 Active HYDROmorphone (Dilaudid) 2 mg tabletIndications :Pain [...] Max Daily Amount: 6 mg 42 each 09/12/19 25 025 Discontinued(Re order) HYDROmorphone (Dilaudid) 2 mg tabletIndications :Pain of left heel,Chronic pain of left knee,Closed fracture of left tibial plateau, sequela Take 1 tablet (2 mg total) by mouth every 8 (eight) hours for 14 days. Max Daily Amount: 6 mg 42 each 09/12/19 25 025 Discontinued(Re order) predniSONE (DELTASONE) 20 mg tablet Take 1 tablet (20 mg total) by mouth 1 (one) time each day. 2 tabs a day 09/15/19 25 Discontinued Active Problems Problem Noted Date Diagnosed Date Opioid contract exists 09/27/2024 Assessment & Plan (09/27/2024 12:36 PM EDT): She is doing well on the hydromorphone 3 times daily and will continue with this. Discussed signs and symptoms warranting reevaluation. Risks, benefits, and side-effects of the medication were discussed and the patient expressed verbal understanding and consents to the plan. Followup in 3 months with PCP This note was created using dictation software and may contain syntax and grammar errors. Anxiety 05/17/2024 Celiac sprue 05/17/2024 Weight loss 05/17/2024 Closed fracture of left tibial plateau Chronic pain of left knee 04/23/2023 Assessment & Plan (09/27/2024 12:36 PM EDT): I spent 45 minutes for this encounter with the combination of initial chart review, review of outside documentation, appropriate labs and imaging, patient interview and appropriate physical examination. This excludes any separately billable procedures. Osteopenia of left thigh 09/07/2022 Complex regional [...] Encounters Date Type Department Care Team Description 09/27/2024 9:00 AM EDT Telemedicine Adult Medicine [address] [phone] Fredrick Munoz PA Chronic pain of left knee (Primary Dx); Left leg swelling; Left leg weakness; Opioid contract exists 09/22/[address] [phone] Millicent Subramanian MD Referral (Physical Therapy) 09/20/[address] [phone] Millicent Subramanian MD Knee Pain 09/20/[address] [phone] Millicent Subramanian MD information needed/provider call back 09/18/[address] [phone] Millicent Subramanian MD Referral 09/15/2024 1:15 PM EDT Office Visit [address] [phone] Millicent Subramanian MD 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); Muscle function loss 09/11/[address] [phone] Josefina Guerrero MA Forms/questionnaires (RMV /) 09/11/[address] [phone] Millicent Subramanian MD provider callback; Leg Problem 09/01/[address] [phone] Millicent Subramanian MD Fitting for DME 08/29/[address] [phone] Millicent Subramanian MD imaging 08/28/[address] [phone] Fredrick Munoz PA Medication Problem (HYDROmorphone (Dilaudid) 2 mg tablet) 08/23/2024 Telephone [facility] [address] [place] [phone] Millicent Subramanian MD Referral (Attempted to reach, no response. TR) 08/17/2024 9:30 AM EDT Office Visit Adult [address] [phone] Fredrick Munoz PA Chronic pain of left knee (Primary Dx); Leg swelling; Elevated BUN 08/17/2024 Telephone Adult [address] [phone] Millicent Crandall MA [facility] URINE DRUG SCREEN 08/10/2024 9:00 AM EDT Office Visit [address] [phone] Fredrick Munoz PA Pain of left heel (Primary Dx); Chronic pain of left knee; Closed fracture of left tibial plateau, sequela; Muscle weakness (generalized) 08/10/[address] [phone] Fredrick Munoz PA Fitting for DME 08/08/[address] [phone] Fredrick Munoz PA Call Back; Joint Swelling 07/20/[address] [phone] Fredrick Munoz PA Medication Problem (HYDROmorphone (Dilaudid) 2 mg tablet ) 07/17/[address] [phone] Fredrick Munoz PA Letter for School/Work 07/14/[address] [phone] Millicent Subramanian MD A call back (Regarding treatment for pain); Medication Problem 07/11/2024 10:00 AM EST Office Visit Adult [address] [phone] Fredrick Munoz PA Chronic pain of left knee (Primary Dx); Bilateral edema of lower extremity 07/11/2024 Telephone Adult [address] [phone] Fredrick Munoz PA 07/05/2024 Telephone Adult [address] [phone] Millicent Subramanian MD Joint Swelling (Ankles Swelling ) 07/03/2024 Telephone Adult [address] [phone] Millicent Subramanian MD Joint Swelling from Last 3 Months Immunizations Name Administration Dates Next Due Influenza Quadravalent, MDCK , 0.5ml, with preservative (Flucelvax) 6mo and older 04/14/2021 Emitless/Rundown SARS-CoV-2 COVID -19, vector-nr, [id number], preservative free [...] Sign Reading Time Taken Comments Blood Pressure 116/66 09/15/2024 1:12 PM EDT Pulse 87 09/15/2024 1:12 PM EDT Temperature 36.7 ??C (98 ??F) 09/15/2024 1:12 PM EDT Respiratory Rate - - Oxygen Saturation - - Inhaled Oxygen Concentration - - Weight 43.1 kg (95 lb) 09/15/2024 1:12 PM EDT Height 154.9 cm (5' 1 ) 09/15/2024 1:12 PM EDT Body Mass Index 17.95 09/15/2024 1:12 PM EDT Plan of Treatment Health Maintenance Due Date [...] reflex confirmation, urine (08/17/2024 10:27 AM EDT) Amphetamine Screen, Ur Negative Negative LAB CHEMISTRY METHOD 03/20/202 5 5:25 PM EDT [facility] Comment:Certain OTC medicati ons containing ephedrine, phenylephrine, pseudoephedrine and phenylpropanolamine can cause false positive results. Barbiturate Screen, Ur Negative Negative LAB CHEMISTRY METHOD 5 5:25 PM EDT [facility] Benzodiazepine Screen, Ur Negative Negative LAB CHEMISTRY METHOD 5 5:25 PM EDT [facility] Cocaine Screen, Ur Negative Negative LAB CHEMISTRY METHOD 5 5:25 PM EDT [facility] Opiate Screen, Ur Positive(A ) Negative LAB CHEMISTRY METHOD 5 5:25 PM [facility] Cannabinoid (THC) Screen, Ur Negative Negative LAB CHEMISTRY METHOD 5 5:25 PM [facility] Comment:Specimens from patie nts taking pantoprazole sodium (Protonix) have been shown to produce false positive results. Fentanyl, Ur Negative Negative LAB CHEMISTRY METHOD 5 5:25 PM EDT [facility] Oxycodone Screen, Ur Negative Negative LAB CHEMISTRY METHOD 5 5:25 PM [facility] Urine Urine specimen obtained by clean catch procedure / Unknown Non-blood Collection / Unknown 08/17/2024 10:27 AM EDT 08/17/2024 10:27 AM EDT [facility] - 08/17/2024 5:25 PM EDT Assay [...] STEVEN LAB URINE ORDERABLES Final Res ult [facility] [address] [place] [address], * Opiates confirmation, urine (08/17/2024 10:27 AM [...] developed and the performance characteristics determined by [facility]. This confirmation testing has not been cleared or approved by the FDA. The laboratory is regulated under CLIA as qualified to perform high-complexity testing. This test is used for patient testing purposes. It should not be regarded as investigational or for research. Test performed at [facility], [address] [place], [place] ??[address] ? [phone] Alyssa Barclay MD, PhD - Residential Sales Rep Urine Urine specimen obtained by clean catch procedure / Unknown Non-blood Collection / Unknown 08/17/2024 10:27 AM EDT 08/17/2024 5:25 PM EDT Fredrick STEVEN LAB URINE ORDERABLES Final Res ult [facility] [address] [place] [address] * DXA BONE DENSITY STUDY 1+ SITS [...] to have osteoporosis by WHO criteria. The [facility] Department of Internal Medicine recommends using [...] alternative screening schedule based on jana Mahmood., [facility] June 18, 2011 for patients [...] to have osteoporosis by WHO criteria. [facility] Department of Internal Medicine recommendsusing National [...] alternative screening schedule based on jana Mahmood., [facility] for patients with osteopenia [...] Final Result * Hepatitis C Screening (04/03/2019) Pathologist [facility] Hepatitis C Screening abstracted Historical Provider HEALTH MAINTENANCE Final Result * Pap Smear (12/29/2017) Pap smear abstracted, no interpretation Historical Provider HEALTH MAINTENANCE Final Result * Colonoscopy (10/26/2014) Colonoscopy abstracted, no interpretation Anatomical Region Laterality Modality Other [facility] Provider HEALTH MAINTENANCE Final Result * HIV Screening (02/03/2011) HIV Screening abstracted Historical Provider HEALTH MAINTENANCE Final Result from Last 3 Months or Most Recently Relevant to Health Maintenance Insurance [facility] Care Teams Enterprise Integration Developer Relationship Specialty Start Date End Date Millicent Chapa MD [address] [place] [id number] PCP - General 07/21/06
== END 2024-09-29 09:32 | disposition home or self-care (01) ==
LOC: HO.HOS 08:51
PROVIDERS: PCP Internal Medicine; Visit Provider Physical Medicine & Rehabilitation
DX: M25.562 Pain in left knee (principal); M25.572 Pain in left ankle and joints of left foot; G57.72 Causalgia of left lower limb; G57.32 Lesion of lateral popliteal nerve, left lower limb
CPT/HCPCS: 99214

== ENCOUNTER → 2024-09-29 08:50 | Outpatient (BNVA) | payer BC, SELFPAY | PROVIDERS: PCP Internal Medicine; Visit Provider Physical Medicine & Rehabilitation ==

== ENCOUNTER 2024-11-02 21:01 | Emergency (ER) | payer BC, SELFPAY ==
[2024-11-02 21:06] VITALS: BP 129/73; PULSE 106; RESP 18; TEMP 36.9; O2SAT 98; BMI 18.9
[2024-11-02 21:23] VITALS: BP 128/70; PULSE 96; RESP 18; O2SAT 99
--- NOTE | 2024-11-02 21:31 | ED.GENADULT ---
[facility] Adult General Chief complaint: Extremity Problem Stated complaint: leg, ankle, knee arm pain Time Seen by Provider: 11/02/24 21:29 Source: patient Mode of arrival: ambulatory Limitations: no limitations History of Present Illness ED Provider: [facility] narrative: Patient with complex regional pain syndrome left peroneal neuropathy [facility] here as she been having pain all over the body in the left leg as in the past patient has been here previously for same requesting the labs and pain management Related Data Home Medications ?Medication ?Instructions ?Recorded ?Confirmed albuterol sulfate 90 mcg/actuation 2 puff inhalation Q4-6H PRN 04/07/22 09/29/24 aerosol inhaler SOB/Wheezing hydromorphone 2 mg tablet 2 mg PO TID 09/08/24 09/29/24 ibuprofen 400 mg tablet 400 mg PO Q8H PRN 09/08/24 09/29/24 lidocaine 5 % topical patch 1 patch topical DAILY 09/08/24 09/29/24 Previous Rx's ?Medication ?Instructions ?Recorded acetaminophen 650 mg/20.3 mL oral 650 mg (20.3 mL) PO Q4H PRN 02/01/24 solution moderate pain #0 mL lorazepam 0.5 mg tablet (Ativan) 0.5 mg PO TID PRN anxiety #7 tabs 02/01/24 polyethylene glycol 3350 17 gram 17 g PO DAILY PRN constipation #0 02/01/24 oral powder packet ea diclofenac sodium 1 % topical gel 4 g topical QID 30 days #100 grams 07/13/24 (Arthritis Pain (diclofenac)) ondansetron 4 mg disintegrating 4 mg PO Q8H PRN nausea and 07/13/24 tablet vomiting #7 tabs prednisone 20 mg tablet 40 mg (2 x 20 mg) PO DAILY #10 tabs 09/14/24 Allergies Allergy/AdvReac Type Severity Reaction Status Date / Time gluten [Gluten] Allergy Severe PT HAS Verified 11/02/24 21:08 CELIAC DISEASE morphine Allergy Severe itching/ashok Verified 11/02/24 21:08 h Sulfa (Sulfonamide Allergy Severe LUPUS-LIKE Verified 11/02/24 21:08 Antibiotics) benztropine [Cogentin] Allergy Intermediate Rash Verified 11/02/24 21:08 ciprofloxacin [From Cipro] Allergy Intermediate TENDONOPATH Verified 11/02/24 21:08 Y/NEUROPATH Y shellfish derived Allergy Intermediate Hives Verified 11/02/24 21:08 promethazine Allergy Unknown Unknown Verified 11/02/24 21:08 nitrofurantoin AdvReac Severe Drug Verified 11/02/24 21:08 [From Macrodantin] induced Hep prochlorperazine AdvReac Unknown Verified 11/02/24 21:54 [From Compazine] Mandelamine Allergy Intermediate Drug Uncoded 11/02/24 21:08 induced Hep QUINOLONES Allergy Intermediate Unknown Uncoded 11/02/24 21:08 tramadol AdvReac Severe hand/feet Uncoded 11/02/24 21:08 buzzing Review of Systems Review of Systems: Yes all other systems are reviewed and are negative PMFSH Past Medical History Medical History Methotrexate, fdc, current use Undifferentiated connective tissue disease Rheumatoid factor positive Post-COVID chronic cough Neuropathy Asthma Diverticulosis Kidney stone Celiac sprue Surgical History H/O cystoscopy S/P cardiac cath (~07/2020) Hx of excision of mass (~1999) Family History Family History Mother Cervical cancer Uterine cancer History of thyroid disorder Maternal Grandmother Diabetes Stroke Maternal Grandfather Diabetes Coronary artery disease Paternal Grandmother Uterine cancer Diabetes Stroke Paternal Grandfather Stroke Father Bladder cancer Social History Social History Household Members: Spouse Household Members Other:: Son Unable to assess alcohol history related to: Unknown Alcohol intake: never Patient Tobacco Use Status: Never used Tobacco Smoked in Last 30 Days: No Use of substances other than those prescribed or required for medical reasons: Unknown Advance Directives: Yes Advance Directives on File: Yes Advance Directives Date on File: 04/27/22 Do you have a plan to hurt others: No Plan Patient : No service: No 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 Oriented X3. No acute distress. Anxious Eyes: PERRLA, No Nystagmus ENT: Pharynx normal. Oral Mucosa moist Neck: Normal inspection. Neck supple. CVS: Normal heart rate and rhythm. Pulses normal. Respiratory: No respiratory distress. Equal air entry bilateral, no wheezing/rales/rhonchi Abdomen: Soft and nontender. Bowel sounds are present, no mass palpable, no CVA tenderness Skin: Skin warm and dry. Normal skin color. Normal skin turgor. Extremities: No lower extremity edema. No calf tenderness tenderness at left peroneal nerve area Neuro: Oriented X 3. No motor deficit. No sensory deficit.No cerebellar signs , cranial nerves II-XII intact Medications Administered Discontinued Medications Generic Name Dose Route Start Last Admin Trade Name Freq PRN Reason Stop Dose Admin Acetaminophen 650 mg 11/02/24 23:00 11/02/24 23:05 Acetaminophen 325 Mg Tablet PO 11/02/24 23:01 650 mg ONCE ONE Administration Dexamethasone Sodium Phosphate 10 mg 11/02/24 21:42 11/02/24 21:54 Dexamethasone Sod Phosphate 10 Mg/Ml Vial IVPUSH 11/02/24 21:43 10 mg ONCE ONE Administration Hydromorphone HCl 1 mg 11/02/24 21:42 11/02/24 22:09 Hydromorphone Hcl 1 Mg/Ml Syringe IVPUSH 11/02/24 21:43 1 mg ONCE ONE Administration Protocol Sodium Chloride 1,000 mls @ 999 mls/hr 11/02/24 21:42 11/02/24 22:52 Ns IV 11/02/24 22:42 Infused .Q1H1M ONE Infusion Ondansetron HCl 4 mg 11/02/24 21:42 11/02/24 22:01 Ondansetron Hcl 4 Mg/2 Ml Vial IVPUSH 11/02/24 21:43 4 mg ONCE ONE Administration Medical Decision Making Medical Decision Making [facility] Narrative: Patient with complex chronic pain syndrome with neuropathy been followed by multiple neurologists time physicians currently followed by [facility] came here for similar pain lab workup is stable was given pain medications your advised to follow up with her neurologist Lab Data MDM Lab Attestation statement: I reviewed the patient's lab results. 11/02/24 23:04 11/02/24 23:04 Labs: Lab Results 11/02/24 Range/Units 23:04 WBC 4.8 (4.8-10.8) X10*3/uL RBC 3.48 L (4.20-5.50) X10*6/uL Hgb 9.9 L (12.0-16.0) g/dl Hct 31.7 L (37.0-47.0) % MCV 91.1 (80.0-98.0) fL MCH 28.4 (27.0-33.0) pg MCHC 31.2 (31.0-35.0) g/dl RDW 13.0 (11.0-16.0) % Plt Count 172 D (160-400) X10*3/uL MPV 10.4 (9.4-12.3) fL Immature Gran % (Auto) 0.4 (0.0-0.4) % Neut % (Auto) 72.4 (45-73) % Lymph % (Auto) 17.1 L (20-40) % [place] % (Auto) 6.0 (2-11) % Eos % (Auto) 3.1 (0-4) % Baso % (Auto) 1.0 (0-2) % Lymph # (Auto) 0.8 L (1.2-4.9) X10*3/uL [place] # (Auto) 0.3 (0.1-1.2) X10*3/uL Eos # (Auto) 0.2 (0.0-0.4) X10*3/uL Baso # (Auto) 0.1 (0.0-0.2) X10*3/uL Abs Immat Gran (auto) 0.02 (0.00-0.03) X10*3/uL Absolute Neuts (auto) 3.5 (2.0-8.3) x10*3/uL Absolute Nucleated RBC 0.000 (0.0-0.012) X10*3/uL Nucleated RBC % (auto) 0.0 (0.0-0.2) /100WBC ESR 16 (0-20) MM/HR Sodium 144 (135-145) mmol/L Potassium 3.8 (3.3-5.1) mmol/L Chloride 112 H (96-108) mmol/L Carbon Dioxide 29 (22-29) mmol/L Anion Gap 7 L (12-20) BUN 30 H (9-16) mg/dL Creatinine 0.49 L (0.5-1.4) mg/dL Estim Creat Clear Calc 83.0 Estimated GFR > 60 Random Glucose 89 (60-115) mg/dL Calcium 8.3 L D (8.4-10.2) mg/dL Magnesium 2.0 (1.6-2.6) mg/dL Total Bilirubin 0.1 (0.0-1.0) mg/dL AST 18 (5-31) U/L ALT 10 (0-31) U/L Alkaline Phosphatase 42 (39-117) U/L C-Reactive Protein 0.18 (< or = 0.50) mg/dL Total Protein 5.7 L (6.5-8.0) g/dL Albumin 3.5 (3.5-5.0) g/dL Discharge Plan Discharge Clinical Impression: Peripheral neuropathic pain CRPS (complex regional pain syndrome type II) Qualifiers: Complex regional pain syndrome affected site: lower extremity Laterality: left Qualified Code(s): G57.72 - Causalgia of left lower limb Patient Disposition: Home, Self-Care Instructions: Chronic Pain (ED), Paresthesia (ED) Additional Instructions: Take your pain medication as prescribed by your PCP/neurologist Follow up as planned with neurologist Prescriptions: No Action acetaminophen 650 mg/20.3 mL Solution 650 mg PO Q4H PRN (Reason: moderate pain) Qty: 0 0RF polyethylene glycol 3350 17 gram Powder In Packet 17 g PO DAILY PRN (Reason: constipation) Qty: 0 0RF lorazepam [Ativan] 0.5 mg tablet 0.5 mg PO TID PRN (Reason: anxiety) Qty: 7 0RF prednisone 20 mg tablet 40 mg PO DAILY Qty: 10 0RF albuterol sulfate 90 mcg/actuation HFA aerosol inhaler 2 puff inhalation Q4-6H PRN (Reason: SOB/Wheezing) ondansetron 4 mg tablet,disintegrating 4 mg PO Q8H PRN (Reason: nausea and vomiting) Qty: 7 0RF diclofenac sodium [Arthritis Pain (diclofenac)] 1 % gel 4 g topical QID 30 Days Qty: 100 3RF Rx Instructions: apply to bilateral knee lidocaine 5 % adhesive patch,medicated 1 patch topical DAILY hydromorphone 2 mg tablet 2 mg PO TID ibuprofen 400 mg tablet 400 mg PO Q8H PRN Print Language: Chinese
[2024-11-02] MEDS: dexAMETHasone sod phosphate 10 MG/ML VIAL IVPUSH (21:54)
[2024-11-02] MEDS: 0.9 % Sodium Chloride 1,000 ML 999 ML IV (21:56)
[2024-11-02] MEDS: ondansetron HCL 4 MG/2 ML VIAL IVPUSH (22:01)
[2024-11-02] MEDS: HYDROmorphone HCl 1 MG/ML SYRINGE IVPUSH (22:09)
[2024-11-02] MEDS: Acetaminophen 325 MG TABLET 650 MG PO (23:05)
[2024-11-02 23:24] LABS: MANUAL DIFF FLAG NO
[2024-11-02 23:25] LABS: Basophils Absolute Auto 0.1 X10*3/uL (0.0-0.2); Eosinophils Absolute Auto 0.2 X10*3/uL (0.0-0.4); Eosinophils Percent Auto 3.1 % (0-4); Hematocrit 31.7 % (37.0-47.0); Hemoglobin 9.9 g/dl (12.0-16.0); Imm Gran Abs Auto 0.02 X10*3/uL (0.00-0.03); Imm Gran Pct Auto 0.4 % (0.0-0.4); Lymphocytes Absolute Auto 0.8 X10*3/uL (1.2-4.9); Lymphocytes Percent Auto 17.1 % (20-40); Mean Corpuscular HGB Conc 31.2 g/dl (31.0-35.0); Mean Corpuscular Hemoglobin 28.4 pg (27.0-33.0); Mean Corpuscular Volume 91.1 fL (80.0-98.0); Mean Platelet Volume 10.4 fL (9.4-12.3); Monocytes Absolute Auto 0.3 X10*3/uL (0.1-1.2); Neutrophils Absolute Auto 3.5 x10*3/uL (2.0-8.3); Neutrophils Percent Auto 72.4 % (45-73); Platelet Count 172 X10*3/uL (160-400); Red Blood Count 3.48 X10*6/uL (4.20-5.50); White Blood Count 4.8 X10*3/uL (4.8-10.8)
[2024-11-02 23:38] LABS: Alanine Aminotransferase 10 U/L (0-31); Albumin Level 3.5 g/dL (3.5-5.0); Alkaline Phosphatase 42 U/L (39-117); Anion Gap 7 (12-20); Aspartate Amino Transferase 18 U/L (5-31); Bilirubin Total 0.1 mg/dL (0.0-1.0); Blood Urea Nitrogen 30 mg/dL (9-16); C Reactive Protein 0.18 mg/dL (< or = 0.50); Calcium 8.3 mg/dL (8.4-10.2); Carbon Dioxide 29 mmol/L (22-29); Chloride 112 mmol/L (96-108); Estimated Glomerular Filt Rate > 60; Glucose Random 89 mg/dL (60-115); Potassium 3.8 mmol/L (3.3-5.1); Sodium 144 mmol/L (135-145); Total Protein 5.7 g/dL (6.5-8.0)
[2024-11-03 00:08] LABS: Erythrocyte Sedimentation Rate 16 MM/HR (0-20)
[2024-11-03 01:02] VITALS: BP 110/59; PULSE 83; RESP 18; TEMP 36.8; O2SAT 98
== END 2024-11-03 01:04 | disposition home or self-care (01) ==
PROVIDERS: Emergency Provider Internal Medicine; PCP Internal Medicine
DX: G57.72 Causalgia of left lower limb (principal); G62.9 Polyneuropathy, unspecified; M79.605 Pain in left leg; G89.4 Chronic pain syndrome; Z79.899 Other long term (current) drug therapy
CPT/HCPCS: 36415; 80053; 83735; 85025; 85652; 86140; 96361; 96374; 96375; 99284; J1100; J1171; J2405

== ENCOUNTER 2024-11-27 19:59 | Emergency (ER) | payer BC, SELFPAY ==
--- NOTE | 2024-11-27 | ECG_ITS ---
Test Reason : chest pain Blood Pressure : */* mmHG Vent. Rate : 77 BPM Atrial Rate : 77 BPM P-R Int : 184 ms QRS Dur : 130 ms QT Int : 394 ms P-R-T Axes : 74 -44 74 degrees QTcB Int : 445 ms Normal sinus rhythm Left axis deviation Non-specific intra-ventricular conduction block Minimal voltage criteria for LVH, may be normal variant ( [place] product ) Abnormal ECG When compared with ECG of 22-Jun-2024 15:41, No significant change was found Referred By: Generic ED Physician Electronically Signed By: OLY MCKEON MD
--- NOTE | ~2024-11-27 | US_ITS ---
CLINICAL HISTORY: S p recent surgery, swelling, R O DVT. Venous duplex ultrasound left lower extremity Comparison: US/SR - US VENOUS DUPLEX LE BI - 07/03/24 14:18 EST Findings: The visualized deep veins are fully compressible with normal Doppler color flow and spectral tracings. No popliteal cyst. IMPRESSION: 1. Negative for left lower extremity deep vein thrombosis. This document has been electronically signed by: Ioana Villalpando MD on 11/27/2024 23:30:46
--- NOTE | ~2024-11-27 | XR_ITS ---
CLINICAL HISTORY: Chest pain 1 view chest x-ray Comparison: CR/SR - XR CHEST 2V - 06/22/24 16:53 EST Findings: COPD and emphysematous changes. No acute airspace opacity. No pleural effusion or pneumothorax. Heart size normal. IMPRESSION: 1. No acute findings. This document has been electronically signed by: Sundeep Pang MD on 11/27/2024 22:38:05
[2024-11-27 20:02] VITALS: BP 130/68; PULSE 76; RESP 16; TEMP 36.6; O2SAT 96
[2024-11-27 20:15] VITALS: BP 130/68; PULSE 76; RESP 18; TEMP 36.6; O2SAT 100; BMI 18.9
--- NOTE | 2024-11-27 22:11 | ED.CHESTPAIN ---
HPI - Chest Pain General Chief Complaint: Chest Pain Stated Complaint: barbara leg pain/chest pain Time Seen by Provider: 11/27/24 21:58 Source: patient Mode of arrival: ambulatory Limitations: no limitations History of Present Illness ED Provider: DR. Esquivel HPI narrative: 63-year-old female history of vasospastic coronary artery disease, s/p left perineal nerve decompression on 11/13 presented for evaluation of 2 days of intermittent chest pain and left lower extremity edema pain is localized in the mid chest is internal mid chest no clear aggravating or relieving factor and can be at rest, pain is associated with shortness of breath. No history of DVT, or pulmonary embolism, patient had a history of cardiac catheterization with a diagnosis of vasospastic coronary artery. Patient overall feels better after the surgery except chest pain that is started 2 days ago. Related Data Home Medications ?Medication ?Instructions ?Recorded ?Confirmed albuterol sulfate 90 mcg/actuation 2 puff inhalation Q4-6H PRN 04/07/22 09/29/24 aerosol inhaler SOB/Wheezing hydromorphone 2 mg tablet 2 mg PO TID 09/08/24 09/29/24 ibuprofen 400 mg tablet 400 mg PO Q8H PRN 09/08/24 09/29/24 lidocaine 5 % topical patch 1 patch topical DAILY 09/08/24 09/29/24 Previous Rx's ?Medication ?Instructions ?Recorded acetaminophen 650 mg/20.3 mL oral 650 mg (20.3 mL) PO Q4H PRN 02/01/24 solution moderate pain #0 mL lorazepam 0.5 mg tablet (Ativan) 0.5 mg PO TID PRN anxiety #7 tabs 02/01/24 polyethylene glycol 3350 17 gram 17 g PO DAILY PRN constipation #0 02/01/24 oral powder packet ea diclofenac sodium 1 % topical gel 4 g topical QID 30 days #100 grams 07/13/24 (Arthritis Pain (diclofenac)) ondansetron 4 mg disintegrating 4 mg PO Q8H PRN nausea and 07/13/24 tablet vomiting #7 tabs prednisone 20 mg tablet 40 mg (2 x 20 mg) PO DAILY #10 tabs 09/14/24 Allergies Allergy/AdvReac Type Severity Reaction Status Date / Time gluten (Gluten) Allergy Severe PT HAS Verified 11/27/24 20:35 CELIAC DISEASE morphine Allergy Severe itching/ashok Verified 11/27/24 20:35 h Sulfa (Sulfonamide Allergy Severe LUPUS-LIKE Verified 11/27/24 20:35 Antibiotics) benztropine (Cogentin) Allergy Intermediate Rash Verified 11/27/24 20:35 ciprofloxacin (From Cipro) Allergy Intermediate TENDONOPATH Verified 11/27/24 20:35 Y/NEUROPATH Y shellfish derived Allergy Intermediate Hives Verified 11/27/24 20:35 promethazine Allergy Unknown Unknown Verified 11/27/24 20:35 nitrofurantoin (From AdvReac Severe Drug Verified 11/27/24 20:35 Macrodantin) induced Hep prochlorperazine (From AdvReac Unknown Verified 11/27/24 20:35 Compazine) Mandelamine Allergy Intermediate Drug Uncoded 11/02/24 21:08 induced Hep QUINOLONES Allergy Intermediate Unknown Uncoded 11/02/24 21:08 tramadol AdvReac Severe hand/feet Uncoded 11/02/24 21:08 buzzing PMFSH Past Medical History Medical History Methotrexate, termite helper, current use Undifferentiated connective tissue disease Rheumatoid factor positive Post-COVID chronic cough Neuropathy Asthma Diverticulosis Kidney stone Celiac sprue Surgical History H/O cystoscopy S/P cardiac cath (~07/2020) Hx of excision of mass (~1999) Family History Family History Mother Cervical cancer Uterine cancer History of thyroid disorder Maternal Grandmother Diabetes Stroke Maternal Grandfather Diabetes Coronary artery disease Paternal Grandmother Uterine cancer Diabetes Stroke Paternal Grandfather Stroke Father Bladder cancer Social History Social History Household Members: Spouse Household Members Other:: Son Unable to assess alcohol history related to: Unknown Alcohol intake: never Patient Tobacco Use Status: Never used Tobacco Smoked in Last 30 Days: No Use of substances other than those prescribed or required for medical reasons: No Advance Directives: Yes Advance Directives on File: Yes Advance Directives Date on File: 04/27/22 Do you have a plan to hurt others: No Plan Patient : No service: No 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 Blood pressure elevated. Heart rate normal. Respiratory rate normal. Temperature normal. Oxygen saturation normal. Appearance: Alert. Oriented X3. No acute distress. Head: Normal external exam. Normocephalic. Atraumatic. No Crockett signs noted. No raccoon eyes noted Eyes: PERRLA. EOMI. Conjunctiva and sclera normal. Eyelids normal. ENT: TM's Normal. Pharynx normal. Uvula midline. Moist mucous membranes. No trismus noted. No drooling noted. No muffled voice noted. Neck: Normal inspection. Neck supple. FROM. No adenopathy. Thyroid Normal. No meningeal signs. No neck mass noted. CVS: Normal heart rate and rhythm. Heart sound normal. No murmurs noted. Pulses normal throughout. Respiratory: No respiratory distress. Painless inspiration. Breath sounds normal. No wheezes/rales/rhonchi noted. Chest nontender. No accessory muscle usage noted or decreased air movement noted. Abdomen: Soft and nontender. Bowel sounds normal in all 4 quadrants. No distention noted. No organomegaly noted. No visible injury noted. Back: No CVA tenderness. Full range of motion noted. Skin: Skin warm and dry. Normal skin color. Normal skin turgor. No rashes/lesions/lacerations noted. Extremities: No lower extremity edema. Extremities exhibit normal range of motion. Extremities nontender. Neuro: Oriented X 3. Cranial nerve exam: II-XII are grossly intact No motor deficit. No sensory deficit. Reflexes normal. Course Reevaluation(s) Reevaluation #1: A 63 year female came in for evaluation of chest pain and left lower extremity swelling after surgery a on 11/13, swelling is likely normal finding after surgery, negative D-dimer, ultrasound is negative for DVT. Time: 23:53 Medical Decision Making Differential Diagnosis Differential Diagnoses: The differential diagnosis associated with the presentation includes (DVT, pulmonary embolism, ACS, anxiety, electrolyte derangement, severe anemia, pneumonia, pneumothorax, pleural effusion.) Admission/Observation Consideration of admission/observation: Escalation of care including admission/observation considered Lab Data MDM Lab Attestation statement: I reviewed the patient's lab results. 11/27/24 22:26 11/27/24 22:26 Labs: Lab Results 11/27/24 11/27/24 Range/Units 22:25 22:26 WBC 6.5 (4.8-10.8) X10*3/uL RBC 4.08 L (4.20-5.50) X10*6/uL Hgb 11.6 L (12.0-16.0) g/dl Hct 36.1 L (37.0-47.0) % MCV 88.5 (80.0-98.0) fL MCH 28.4 (27.0-33.0) pg MCHC 32.1 (31.0-35.0) g/dl RDW 13.3 (11.0-16.0) % Plt Count 281 D (160-400) X10*3/uL MPV 9.7 (9.4-12.3) fL Immature Gran % (Auto) 0.5 H (0.0-0.4) % Neut % (Auto) 74.2 H (45-73) % Lymph % (Auto) 17.6 L (20-40) % Haines % (Auto) 5.5 (2-11) % Eos % (Auto) 1.7 (0-4) % Baso % (Auto) 0.5 (0-2) % Lymph # (Auto) 1.2 (1.2-4.9) X10*3/uL Haines # (Auto) 0.4 (0.1-1.2) X10*3/uL Eos # (Auto) 0.1 (0.0-0.4) X10*3/uL Baso # (Auto) 0.0 (0.0-0.2) X10*3/uL Abs Immat Gran (auto) 0.03 (0.00-0.03) X10*3/uL Absolute Neuts (auto) 4.8 (2.0-8.3) x10*3/uL Absolute Nucleated RBC 0.000 (0.0-0.012) X10*3/uL Nucleated RBC % (auto) 0.0 (0.0-0.2) /100WBC D-Dimer High Sensitivty 228 NG/ML Sodium 143 (135-145) mmol/L Potassium 3.9 (3.3-5.1) mmol/L Chloride 107 (96-108) mmol/L Carbon Dioxide 27 (22-29) mmol/L Anion Gap 13 (12-20) BUN 21 H (9-16) mg/dL Creatinine 0.60 (0.5-1.4) mg/dL Estim Creat Clear Calc 67.7 Estimated GFR > 60 Random Glucose 116 H (60-115) mg/dL Calcium 9.2 D (8.4-10.2) mg/dL Troponin I High Sens < 2.7 (<3.5-17.0) ng/L B-Natriuretic Peptide 26 (<100) pg/mL Independent Interpretation I performed an independent interpretation of an: Plain X-Ray (Chest: No acute intra thoracic pathology.) and Ultrasound (Left venous ultrasound: No DVT.) Radiology Impression Discussion of test interpretation with radiology: I have reviewed the radiologist's reading. Discharge Plan Discharge Clinical Impression: Chest pain, Left leg swelling Patient Disposition: Home, Self-Care Instructions: Chest Pain (ED) Prescriptions: No Action acetaminophen 650 mg/20.3 mL Solution 650 mg PO Q4H PRN (Reason: moderate pain) Qty: 0 0RF polyethylene glycol 3350 17 gram Powder In Packet 17 g PO DAILY PRN (Reason: constipation) Qty: 0 0RF lorazepam [Ativan] 0.5 mg tablet 0.5 mg PO TID PRN (Reason: anxiety) Qty: 7 0RF prednisone 20 mg tablet 40 mg PO DAILY Qty: 10 0RF albuterol sulfate 90 mcg/actuation HFA aerosol inhaler 2 puff inhalation Q4-6H PRN (Reason: SOB/Wheezing) ondansetron 4 mg tablet,disintegrating 4 mg PO Q8H PRN (Reason: nausea and vomiting) Qty: 7 0RF diclofenac sodium [Arthritis Pain (diclofenac)] 1 % gel 4 g topical QID 30 Days Qty: 100 3RF Rx Instructions: apply to bilateral knee lidocaine 5 % adhesive patch,medicated 1 patch topical DAILY hydromorphone 2 mg tablet 2 mg PO TID ibuprofen 400 mg tablet 400 mg PO Q8H PRN Referrals: Millicent Chapa MD [Primary Care Provider, Internal Medicine] Print Language: Hebrew
[2024-11-27 22:29] LABS: MANUAL DIFF FLAG NO
[2024-11-27 22:31] LABS: Hematocrit 36.1 % (37.0-47.0); Hemoglobin 11.6 g/dl (12.0-16.0); Imm Gran Abs Auto 0.03 X10*3/uL (0.00-0.03); Imm Gran Pct Auto 0.5 % (0.0-0.4); Lymphocytes Absolute Auto 1.2 X10*3/uL (1.2-4.9); Mean Corpuscular HGB Conc 32.1 g/dl (31.0-35.0); Mean Corpuscular Hemoglobin 28.4 pg (27.0-33.0); Mean Corpuscular Volume 88.5 fL (80.0-98.0); NRBC Abs Auto 0.000 X10*3/uL (0.0-0.012); NRBC Pct Auto 0.0 /100WBC (0.0-0.2); Platelet Count 281 X10*3/uL (160-400); Red Blood Count 4.08 X10*6/uL (4.20-5.50); White Blood Count 6.5 X10*3/uL (4.8-10.8)
[2024-11-27 22:39] LABS: D Dimer High Sensitivity 228 NG/ML
[2024-11-27 22:46] LABS: Anion Gap 13 (12-20); Blood Urea Nitrogen 21 mg/dL (9-16); Calcium 9.2 mg/dL (8.4-10.2); Carbon Dioxide 27 mmol/L (22-29); Chloride 107 mmol/L (96-108); Creatinine Clr Calc Pharmacy 67.7; Estimated Glomerular Filt Rate > 60; Potassium 3.9 mmol/L (3.3-5.1); Sodium 143 mmol/L (135-145)
[2024-11-27 22:51] LABS: B Type Natriuretic Peptide 26 pg/mL (<100)
[2024-11-27 22:53] LABS: Troponin-I High Sensitivity < 2.7 ng/L (<3.5-17.0)
[2024-11-28] VITALS: BP 98/57; PULSE 84; RESP 14; TEMP 36.8; O2SAT 96
[2024-11-28 00:35] VITALS: BP 98/57; PULSE 84; RESP 14; TEMP 36.8; O2SAT 96
== END 2024-11-28 00:38 | disposition home or self-care (01) ==
PROVIDERS: Emergency Provider Emergency Medicine; PCP Internal Medicine
DX: R07.9 Chest pain, unspecified (principal); M79.89 Other specified soft tissue disorders; M79.662 Pain in left lower leg; M79.661 Pain in right lower leg; Z79.899 Other long term (current) drug therapy
CPT/HCPCS: 36415; 71045; 80048; 83880; 84484; 85025; 85379; 93005; 93971; 96374; 99284; 99285; J1885

== ENCOUNTER → 2024-11-27 20:04 | Outpatient (BNV) | payer BC, SELFPAY | PROVIDERS: Emergency Provider Emergency Medicine; PCP Internal Medicine; Visit Provider Internal Medicine Cardiovascular Disease | DX: I45.4 Nonspecific intraventricular block (principal) | CPT/HCPCS: 93010 ==

== ENCOUNTER → 2024-11-27 22:10 | Outpatient (BNV) | payer BC, SELFPAY | PROVIDERS: Emergency Provider Emergency Medicine; PCP Internal Medicine; Visit Provider Radiology Diagnostic Radiology | DX: R22.42 Localized swelling, mass and lump, left lower limb (principal) | CPT/HCPCS: 93971 ==

== ENCOUNTER 2025-01-11 07:58 | Outpatient (AMB) | payer BC, SELFPAY ==
[2025-01-11 08:01] VITALS: BP 100/60; PULSE 60; O2SAT 100
--- NOTE | 2025-01-11 08:01 | A.OFFVIS_ITS ---
Vital Signs 01/11/25 08:01 Height 5 ft 1 in BP 100/60 Blood Pressure Location Lt brachial Position Sitting Pulse 60 Pulse Source Pulse Oximeter Pulse Oximetry (%) 100 Oxygen Delivery Method Room Air Intake Visit Reasons: 6mon follow-up [employer] Required: No Accompanied by: Self / Same As Patient Allergies gluten (Gluten) Allergy (Severe, Verified 01/11/25 08:06) PT HAS CELIAC DISEASE morphine Allergy (Severe, Verified 01/11/25 08:06) itching/rash Sulfa (Sulfonamide Antibiotics) Allergy (Severe, Verified 01/11/25 08:06) LUPUS-LIKE benztropine (Cogentin) Allergy (Intermediate, Verified 01/11/25 08:06) Rash ciprofloxacin (From Cipro) Allergy (Intermediate, Verified 01/11/25 08:06) TENDONOPATHY/NEUROPATHY shellfish derived Allergy (Intermediate, Verified 01/11/25 08:06) Hives promethazine Allergy (Unknown, Verified 01/11/25 08:06) Unknown nitrofurantoin (From Macrodantin) Adverse Reaction (Severe, Verified 01/11/25 08:06) Drug induced Hep prochlorperazine (From Compazine) Adverse Reaction (Verified 01/11/25 08:06) Unknown Mandelamine Allergy (Intermediate, Uncoded 11/02/24 21:08) Drug induced Hep QUINOLONES Allergy (Intermediate, Uncoded 11/02/24 21:08) Unknown tramadol Adverse Reaction (Severe, Uncoded 11/02/24 21:08) hand/feet buzzing Medication List - Last Reconciled 01/14/25 by YOUSUF Magaña acetaminophen 650 mg (20.3 mL) PO Q4H PRN acetaminophen 1,000 mg PO Q6H PRN albuterol sulfate 90 mcg/actuation 2 puffs inhalation Q4-6H PRN diclofenac sodium 1% (Arthritis Pain (diclofenac)) 4 grams topical QID 30 days hydromorphone 2 mg PO Q6H hydromorphone 2 mg PO TID lidocaine 5% 1 patch topical DAILY lorazepam (Ativan) 0.5 mg PO TID PRN ondansetron 4 mg PO Q8H PRN polyethylene glycol 3350 17 grams PO DAILY PRN pregabalin 25 mg PO DAILY pregabalin 50 mg PO BEDTIME HPI Comments Details: 64-yr-old female presents for follow-up of bilateral lower extremity ankle/feet paresthesia and swelling Since the left visit, she underwent an EMG/NCS, which showed a left deep peroneal neuropathy. Pt reports she transferred her orthopedic care to [facility], where Left peroneal ultrasound showed left peroneal inflammation. She then underwent a left peroneal decompression surgery by Dr Tate. She notes that she is having some motor planning deficit - where she cannot initiate her steps, her PT has used strategies such as walking to a metinome. She is doing neuro PT at [facility]. She is worried that this could be an early sign of Parkinson's disease, as she has a family history of Lewy body dementia. * She can feel stiff if sitting for awhile, she can have brief cognitive lapses which he attributes to her medication regimen, * She denies tremor After last visit, she tried pregabalin, but did not tolerate it, so held it. Dr Tate then advised her to resume the pregabalin at 50mg bid. She then developed episodes of stuttering over several weeks, so she decreased the dose to 25mg bid and the stuttering resolved. However, this does did not help the pain, so she increased the pregabalin dose to 25mg qam and 50mg qhs. She also notes her lorazepam also helps with the burning pain. Her PCP has started her on low dose hydromorphone taper, which has started to help her with her pain. She had a left knee injection at the [facility] ER, and the next day had a bout of increased LLE distal swelling. She went to [facility], work-up was unremarkable. And since the swelling has reduced but still comes and goes. 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 She hopes to return to more full-time work. 11/10/24, 07/13/24, previous HPI: 63-yr-old female presents for recent onset bilateral lower extremity ankle/feet paresthesia and swelling. Patient was last seen here over 2 years ago. She reports in Dec 2023, she fell and sustained a left tibeal plateu fx. She was tx'd conservatively- NWB through Mar 2024, and progressed to weight bearing with a walker/cane. She has continued to have aching/burning/stiffness left knee pain, left lateral foot and ball of foot numbness/pain. She also medial right knee region pains. Sometimes the left knee swells, and bilateral knee redness at times- though this has been improving. She has been taking Ibuprofen 1600mg-3200mg per day since Dec, then 3200mg consistently since Mar. And Tylenol intermittently. She continues to do PT. She is using a walker. Has a w/c for longer distances. Then, 3 weeks ago she woke up with acute bilateral ankle swelling. The swelling does increase as the day progresses. When her ankle swells, she is having bilateral, L > R, pain. The left lateral part of the left lateral and ball of foot When her ankle/foot swells more, she has bilateral feet tingling, prickliness, and worsening numbness. She feels her legs feel subjectively weaker. Since the onset of the ankle swelling, she has tried to decrease Ibuprofen dose. Taking more Tylenol. Recently had bilateral ankle x-ray showed bilateral soft tissue swelling. Bilateral venous duplex did not show any evidence for DVT. Her BUN has been running elevated- 26-28 since February. She states at [facility]- had normal Lyme and BNP. She did recently see [facility] Rheumatology, who suggested she try Plaquenil, however patient was worried about taking this while she was taking NSAIDs on a scheduled basis. Thus, she was advised to try methotrexate, but she has not done yet. She has previously used gabapentin in the past for other pain symptoms, and it was not tolerated. She states she can tolerate to 50 mg of pregabalin. 06/16/24 07/03/24 14:34 15:25 WBC 5.5 RBC 3.94 L Hgb 11.7 L Hct 36.2 L ESR 34 H 19 PT 11.1 INR 1.0 Sodium 142 Potassium 4.2 Chloride 106 Carbon Dioxide 31 H Anion Gap 9 L BUN 26 H Creatinine 0.66 Random Glucose 97 Calcium 10.0 D Magnesium 2.5 Total Bilirubin 0.2 Direct Bilirubin < 0.2 AST 22 ALT 11 Alkaline Phosphatase 54 Total Creatine Kinase 35 C-Reactive Protein < 0.04 B-Natriuretic Peptide < 10 Total Protein 7.6 Albumin 4.5 04/29/2022, Initial HPI: Pt reports that last year, she fell and injured her left knee. Per pt, work-up was overall normal, but she had residual left medial knee swelling. She did do PT at the time. For the ongoing knee pain and swelling, she was taking NSAIds regularly. Then last month, she developed gross hematuria. She was seen by the ER and then urology- work-up showed a small kidney stone, but a f/u cystoscopy was normal. Her PCP had also started her on Prednisone for the hematuria, within 3 days the hemturia resolved. Then on Mar 30, she was diagnosed with COVID-19. Initially she had mild URI s/s, however after several days she did develop a symptomatic LLL PNA which was tx'd w/ a course of azithromycin. She was again started on Prednisone, and weaned off in mid-Mar. Then she started having increased paresthesias, joint pain and swelling, most notably now in her right knee (which had not bothered her prior). Recent Left knee MRI: ?Minimal patellofemoral compartment arthrosis.; Right knee MRI: Minimal patellofemoral compartment osteoarthritis with a full-thickness chondral fissure in the central trochlear groove and Intact ligaments and menisci. She has been in the ER about 5 times in the past weeks. Recent CBC, CMP- WNL w/ mildly decreased Hgb 11.9L, BUN 25, total protein 5.7L., Lyme, anti-CCP- negative. She has also seen her PCP, rheumatology, and pain management. She was started on Pregabalin, po toradal (but has completed prescription and pain management has suggested sw itching this to diclofenac however she is hesitant to take this d/t risk of GI upset), zofran, and lorazepam. At this time, she reports she has: LLE numbness with left knee flexion, she would experience numbness that would start in lateral knee and move medially across the knee and down the leg into her left big toe. She also started noticing pins and needles in her right toes and heels, as well as hands. She feels a zinging sensation in her bilateral elbows. She has also been noticing bilateral foot decreased sensation. Now her right knee also has pain and swelling. She is having more difficulty walking d/t the pain. She notes today she woke up with bilateral ankle swelling, which is new for her. She also been having more fatigue. She also notes new onset constipation. Pt denies any new dizziness although has a h/o BPPV. She has a h/o Raynaud's- no recent s/s. Notes her skin tends to be ruddier, but denies any recent significant peripheral skin color changes. Denies weakness. No recent head imaging or EMG/NCS. She states in [id number], she contracted salmonella, was treated with Cipro and Prednisone, and then developed prolonged autonomic and sensory neuropathy- she was treated in-pt and had 10-day rehab stay at [facility]. Pt states that she recovered from this, after about 1 year. After her 1st labor and delivery in 1986- she had an epidural- she had patchy sensory and motor deficits w/o B&B dysfunction, which persisted for 6 months. She recovered fully after 9 months of PT. 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 Methotrexate, penitentiary, current use Undifferentiated connective tissue disease Rheumatoid factor positive Post-COVID chronic cough Neuropathy Asthma Diverticulosis Kidney stone Celiac sprue Surgical History (Updated 01/11/25 @ 08:08 by Chanda Dickerson [facility]) History of surgery on lower extremity H/O cystoscopy S/P cardiac cath (~07/2020) Hx of excision of mass (~1999) Family History Mother Cervical cancer Uterine cancer History of thyroid disorder Maternal Grandmother Diabetes Stroke Maternal Grandfather Diabetes Coronary artery disease Paternal Grandmother Uterine cancer Diabetes Stroke Paternal Grandfather Stroke Father Bladder cancer Social History Household Members: Spouse Household Members Other:: Son Unable to assess alcohol history related to: Unknown Alcohol intake: never Patient Tobacco Use Status: Never used Tobacco Advance Directives Date on File: 04/27/22 service: No 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[employer] Physical Exam Vital Signs: Last Vital Signs Pulse 60 01/11/25 08:01 BP 100/60 01/11/25 08:01 Pulse Ox 100 01/11/25 08:01 Oxygen Delivery Method Room Air 01/11/25 08:01 Const General: cooperative and no acute distress Orientation/consciousness: patient oriented x3 HEENT Head: Yes normocephalic Resp Effort & Inspection: normal respiratory effort and able to speak in complete sentences Auscultation: clear to auscultation bilaterally Cardio Rate: regular rate Rhythm: regular rhythm Neuro Other: Patient able to stand slowly, uses arms to push herself up, however is unable to initiate steps without holding on to her walker or another person. When standing, slow steady gait with walker. General: patient oriented x3 Cranial nerves: Yes CN's II-XII intact bilaterally Motor exam (neuro): 5/5 motor strength present throughout Deep tendon reflexes (DTR's): Right patellar reflex intensity grade: 2+ and Left patellar reflex intensity grade: 2+ Psych Appearance: grossly normal Mental Status: mental status grossly normal Speech and movement: Normal speech and movement present Affect: normal affect Assessment & Plan Assessment & Plan (1) Gait difficulty: Code(s): R26.9 - Unspecified abnormalities of gait and mobility Category: Medical (2) Peroneal neuropathy: Code(s): G57.30 - Lesion of lateral popliteal nerve, unspecified lower limb Category: Medical Qualifiers: Laterality: left Qualified Code(s): G57.32 - Lesion of lateral popliteal nerve, left lower limb (3) Peripheral neuropathic pain: Code(s): M79.2 - Neuralgia and neuritis, unspecified Category: Medical (4) White matter abnormality on MRI of brain: Code(s): R90.82 - White matter disease, unspecified Category: Medical Plan Patient advised to undergo brain MRI with and without contrast to assess for secondary intracranial etiologies of gait changes, specifically inability to initiate steps. Patient has stopped her previous usage of NSAIDs, now using sparingly as these increase BLE peripheral edema. Patient may continue pregabalin 25 mg q.a.m. and 50 mg q.h.s. and pain management program- prescribed by her PCP Continue physical therapy. Discuss strategies to optimize mobility. Follow-up with [facility] orthopedics, in Neurosurgery as scheduled Follow-up upon review of above and in 3-6 months or sooner as needed Orders: Orders MR head/brain wo/w con Today M35.9 - Systemic involvement of connective tissue, unspecified, R26.9 - Unspecified abnormalities of gait and mobility, R90.82 - White matter disease, unspecified Coding Level of Care Code Est Pt Level 4 (17547) Diagnoses Gait difficulty R26.9 Neuropathy of left peroneal nerve G57.32 Laterality: left Peripheral neuropathic pain M79.2 White matter abnormality on MRI of brain R90.82
--- OUTSIDE RECORDS SUMMARY | 2025-01-11 08:01 | XMS_ITS | Encounter Summary ---
Author Organization [facility] Address [address] [place] [address] Phone Care Team Providers Care Insulator Helper Name Role Phone Millicent Chapa MD Primary Care Pr ovider Encounter Details Date Type Department Care Team (Late st Contact Info) Description 12/29/2024 Orders Only [facility] [place] of [place]opaedic Surgery, Foot & Ankle Service [address] [facility], 3[address], [address] [place] [address] Fiona [place], [place] [address] [place] [address] [email or web address] Pain (Primary Dx) Social History Tobacco Use Types Packs/Day Years Used Date Smoking Tobacco: Never Smokeless Tobacco: Never Alcohol Use Standard Drinks/Week Comments Not Currently 0 (1 standard drink = 0.6 oz pur e alcohol) Child or Family Care Answer Date Record ed Do you have problems with on e of the following making it difficult for you to work, study, or receive health care? No 10/31/2024 Education Answer Date Recorded Are you interested in help w ith more adult education (for example, completing high school, GED, job training, learning the [place] language, technical skills, or developing parenting skills)? No 10/31/2024 Are you concerned about learning? Not on file 10/31/2024 No 10/31/2024 Yes 10/31/2024 Food Answer Date Recorded Within the past 6 months we worried whether our food would run out before we got money to buy more. Never True 10/31/2024 Within the past 6 months the food we bought just didn't last and we didn't have enough money to get more. Never True Residential Stability Answer Date Recor ded What is your housing situation today? I have tano sing 10/31/2024 How many times have you move d in the past 12 months? Zero (I did not move) 10/31/2024 Paying for Meds Answer Date Recorded Do you have trouble paying for medicines? No 10/31/2024 Paying Utility Bills Answer Date Record ed Do you have trouble paying your heating or elect ricity bill? No 10/31/2024 Transportation Answer Date Recorded Has the lack of transportati on kept you from medical appointments or from getting medications? No 10/31/2024 Digital Access Answer Date Recorded No 10/31/2024 Yes 10/31/2024 Do you have reliable internet access at home? Ye s 10/31/2024 Do you have a device (e.g., phone, tablet, computer) with a working camera? Yes 10/31/2024 Intimate Partner Violence Answer Date R ecorded Are you denied basic needs s uch as food, clothing, or medical care? Deferred 11/10/2024 In the past 12 months have y ou been in a relationship with a person who hurts, threatens, or tries to control you? Deferred 11/10/2024 Are you denied basic needs s uch as food, clothing, or medical care? Deferred 11/10/2024 In the past 12 months have y ou been in a relationship with a person who hurts, threatens, or tries to control you? Deferred 11/10/2024 Comments No Sex and Gender Information Value Date Recorded Sex Assigned at Not on file Legal Sex Female 5:11 PM EST Gender Identity Not on file Sexual Orientation Not on file documented as of this encounter Plan of Treatment Upcoming Encounters Date Type Department Care Team (Late st Contact Info) Description 06/05/2025 11:30 AM EST Office Visit [facility] [place] [facility] [address], [address] [place] [address] Ashwin Tate MD [address] [place] [address] [place] [id number] [email or web address] documented as of this encounter Results * XR ANKLE 3 OR MORE VIEWS (LEFT) (01/03/2025 11:14 AM EDT) Anatomical Region Laterality Modality Ankle Left Computed Radiogr aphy 01/03/2025 2:25 PM EDT Impressions 01/03/2025 2:28 PM EDT Diffuse osseous demineralization and diffuse soft tissue swelling. Narrative 01/03/2025 2:28 PM EDT XR ANKLE 3 OR MORE VIEWS (LEFT) Referring clinician's provided indication for this examination in Epic: Pain COMPARISON: MRI ANKLE WITHOUT CONTRAST (LEFT) FINDINGS: Diffuse osseous demineralization. Diffuse soft tissue swelling. No definite fracture. No substantial degenerative changes. Procedure Note Chapincito Puente MD - 01/03/2025 XR ANKLE 3 OR MORE VIEWS (LEFT) Referring clinician's provided indication for this examination in Epic:Pain COMPARISON: MRI ANKLE WITHOUT CONTRAST (LEFT) FINDINGS: Diffuse osseous demineralization. Diffuse soft tissue swelling. Nodefinite fracture. No substantial degenerative changes. IMPRESSION: Diffuse osseous demineralization and diffuse soft tissue swelling. us Isidro Vergara MD IMG XR LOWER EXTREMITY Isabella l Result documented in this encounter Visit Diagnoses Diagnosis Pain- Primary Generalized pain Pain Generalized pain documented in this encounter Care Teams Insulator Helper Relationship Specialty Start Date End Date Millicent Chapa MD [address] [place] [id number] PCP - General Internal Medicine 05/18/24 documented as of this encounter Additional Source Comments The information contained in this document represents components of the legal health record. It is not the complete legal health record.[facility]
--- OUTSIDE RECORDS SUMMARY | 2025-01-11 08:01 | XMS_ITS | Clinical Summary ---
Author Organization [facility] Surgery Address [address] [place] [id number] Care Team Providers Care Substation Designer Name Role Phone Millicent Chapa MD Primary Care Prov ider Allergies Active Allergy Reactions Criticality Noted Date Comments Bee Venom Protein (Honey Bee) Other (See Comments),Swelling 04/11/2012 Bupivacaine Hcl Other (See Comments) 05/30/2013 BILATERAL MOTOR/SENSORY LOSS LOWER EXTREMITIES S/P EPIDURAL Ciprofloxacin-Hydrocortis one Rash Low 10/17/2009 Gluten Other (See Comments) 03/01/2010 MALABSORPTION Iodinated Contrast Media Other (See Comments) 05/30/2013 THROAT NUMBNESS Methenamine Other (See Comments) High 08/31/2009 Drug Induced Hepatitis Drug induced hep Methenamine Mandelate Other (See Comments) 09/30/2023 Nitrofurantoin Other (See Comments) High 08/30/2009 Lupus-like rxn HEPATITIS Drug induced Hep Prochlorperazine Other (See Comments) 08/30/2009 distonia Quinolones 08/12/2012 Periph neuropathy Shellfish Derived Other (See Comments) 05/30/2013 SWELLING,HIVES,SOB Silver Unknown 05/30/2013 Sulfa (Sulfonamide Antibiotics) Rash,Other (See Comments) Low 02/05/2006 Trazodone Other (See Comments) 08/30/2009 rash Medications ondansetron ODT (ZOFRAN-ODT) 4 MG disintegrating tablet DISSOLVE 1 TABLET UNDER THE TONGUE EVERY 8 HOURS NEEDED FOR NAUSEA AND VOMITING 2 Active LORazepam (ATIVAN) 0.5 MG tablet TAKE 1 TABLET BY MOUTH TWICE A DAY NEEDED FOR ANXIETY 2 Active albuterol (VENTOLIN HFA) 90 mcg/actuation inhaler INHALE 2 PUFFS BY MOUTH EVERY 4 TO 6 HOURS NEEDED 2 Active Immunizations Immunization Administration Dates Next Due Influenza-cciiv4, Im (>=4 Yrs) 04/14/2021 [employer] Cov-2 Vaccination 03/27/2021 MMR 02/18/2017 MMRV 02/18/2017 PPD Test 03/17/2017,02/18/2010 Rubella 02/18/2017 Varicella 02/18/2017 Family History Medical History Relation Name Comments No Known Problems Mother Relation Name Status Comments Father Mother Alive Social History Tobacco Use Types Packs/Day Years Used Date Smoking Tobacco: Never Smokeless Tobacco: Never Alcohol Use Standard Drinks/Week Comments Never 0 (1 standard drink = 0.6 oz pur e alcohol) Health Literacy Answer Date Recorded How often do you need to hav e someone help you when you read instructions, pamphlets, or other written material from your doctor or pharmacy? Never 04/29/2022 Comments Unknown Sex and Gender Information Value Date Recorded Sex Assigned at Female 09/02/2021 9:08 AM EDT Legal Sex Female 8:42 PM EST Gender Identity Female 09/02/2021 9:08 AM EDT Sexual Orientation Decline 09/02/2021 9: 08 AM EDT Last Filed Vital Signs Vital Sign Reading Time Taken Comments Blood Pressure - - Pulse - - Temperature - - Respiratory Rate - - Oxygen Saturation - - Inhaled Oxygen Concentration - - Weight 45.4 kg (100 lb) 11/18/2023 12:54 PM EDT Height 154.9 cm (5' 1 ) 11/18/2023 12:54 PM EDT Body Mass Index 18.89 11/18/2023 12:54 PM EDT Plan of Treatment Health Maintenance Due Date Last Done Comments COVID-19 Vaccine ( season) 2024 PNEUMOCOCCAL POLYSACCHARIDE VACCINE AGE 65 AND OVER INFLUENZA VACCINE 01/29/2025 Insurance [employer] OTHER [employer] [place] [employer] [facility] OTHER [employer] [facility] OTHER [employer] OTHER [employer] OTHER [employer] OTHER [employer] OTHER [employer] OTHER [employer] OTHER [employer] [facility] OTHER [employer] [facility] OTHER [employer] OTHER [employer] OTHER [employer] OTHER Member Subscriber Plan / Payer (Ef fective 2023-Present) Name:Ruby Stack Relation to Subscriber:Self Name:ChungSnehal Ramseyjennifer Blankenship Payer ID:Not on file Type:Not on file Address: [place] [phone] [employer] OTHER [employer] OTHER [employer] OTHER [employer] OTHER [employer] OTHER [employer] OTHER Member Subscriber Plan / Payer ( fective 2023-Present) Name:Ruby Stack Relation to Subscriber:Self Name:Ruby Stack Payer ID:Not on file Type:Not on file Address: [address] [employer] [place] [employer] [facility] OTHER [employer] [facility] OTHER [employer] OTHER [employer] OTHER [employer] OTHER [employer] OTHER [employer] OTHER [employer] OTHER [employer] OTHER [employer] BL[employer] OTHER [employer] OTHER [employer] [place] [employer] [facility] OTHER [employer] OTHER [employer] OTHER [employer] OTHER [employer] OTHER [employer] OTHER [facility] [employer] OTHER [employer] OTHER [employer] OTHER [employer] OTHER [employer] OTHER Member Subscriber Plan / Payer (Ef fective 2023-Present) Name:Ruby Stack Relation to Subscriber:Self Name:Ruby Stack Payer ID:Not on file Type:Not on file Address: [place] [phone] [employer] [place] [employer] OTHER [employer] OTHER [employer] OTHER [employer] OTHER [employer] OTHER [employer] OTHER [employer] OTHER Member Subscriber Plan / Payer ( fective 2023-Present) Name:Ruby Stack Relation to Subscriber:Self Name:Ruby Stack Payer ID:Not on file Type:Not on file Address: [place] [phone] [email or web address] OTHER Member Subscriber Plan / Payer ( fective 2023-Present) Name:Ruby Stack Relation to Subscriber:Self Name:Ruby Stack Payer ID:Not on file Type:Not on file Address: [address] [email or web address] OTHER [employer] OTHER Member Subscriber Plan / Payer ( fective 2023-Present) Name:Ruby Stack Pattie Relation to Subscriber:Self Name:Ruby Stack Payer ID:Not on file Type:Not on file Address: [place] [phone] [employer] [facility] OTHER [employer] [place] [employer] [facility] OTHER [employer] OTHER [employer] OTHER [employer] OTHER [employer] OTHER [employer] OTHER Member Subscriber Plan / Payer ( fective 2023-Present) Name:Ruby Stack Relation to Subscriber:Self Name:Ruby Stack Payer ID:Not on file Type:Not on file Address: [place] [phone] [employer] OTHER [employer] OTHER [employer] OTHER [employer] [facility] OTHER [employer] [place] [employer] [facility] OTHER [employer] OTHER [employer] OTHER [employer] OTHER [employer] OTHER [employer] OTHER Member Subscriber Plan / Payer (Ef fective 2023-Present) Name:Ruby Stack Relation to Subscriber:Self Name:Ruby Stack Payer ID:Not on file Type:Not on file Address: [place] [phone] [employer] OTHER [place] [place] OTHER [employer] [place] [employer] [facility] OTHER [employer] [facility] OTHER [employer] OTHER [employer] OTHER [employer] OTHER [employer] OTHER [employer]zaar BL[employer] OTHER vzaar BL[employer] OTHER [place] [place] OTHER [employer] OTHER [employer] [facility] OTHER [employer] OTHER [employer] OTHER [employer] OTHER [employer] OTHER vzaar [employer] OTHER vzaar [employer] OTHER vzaar BL[employer] OTHER [employer] OTHER [employer] [facility] OTHER [employer] OTHER [employer] OTHER [employer] OTHER [employer] OTHER [employer] OTHER [place] [place] OTHER vzaar BL[employer] OTHER [place] [place] BL[employer] OTHER [employer] OTHER [employer] OTHER [employer] OTHER [employer] OTHER [employer] OTHER [employer] OTHER [employer] OTHER [employer] SH[employer] OTHER vzaar [employer] OTHER [employer] OTHER [employer] [place] [employer] OTHER [employer] OTHER [employer] OTHER [employer] OTHER [employer] OTHER [employer] [place] [employer] [facility] OTHER [employer] OTHER [employer] OTHER [employer] OTHER vzaar [employer] OTHER [employer] SH[employer] OTHER [employer] OTHER [employer] OTHER [employer] OTHER [employer] OTHER [employer] [facility] OTHER OTHER [employer] OTHER [employer] OTHER [employer] OTHER [employer] SH[employer] OTHER [employer] SH[employer] OTHER vzaar [employer] OTHER [employer] OTHER [employer] OTHER [employer] OTHER OTHER [employer] OTHER [employer] OTHER [employer] OTHER [employer] OTHER BL[employer] OTHER [place] [place]OSS [employer] OTHER [employer] OTHER [employer] OTHER [facility] OTHER OTHER OTHER [employer] OTHER [employer] OTHER [employer] OTHER [employer] OTHER [employer] OTHER [employer] OTHER Member Subscriber Plan / Payer (Ef fective 2023-Present) Name:Ruby Stack Relation to Subscriber:Self Name:Loyd FranksSnehalRubyejnnifer Blankenship Payer ID:Not on file Type:Not on file Address: [address] [employer] OTHER [employer] OTHER [place] [place] OTHER OTHER [facility] [employer] [facility] OTHER [facility] OTHER Care Teams Substation Designer Relationship Specialty Start Date End Date Millicent Chapa MD [address] [place] [phone] PCP - General Internal Medicine 09/02/21
--- OUTSIDE RECORDS SUMMARY | 2025-01-11 08:01 | XMS_ITS | Encounter Summary ---
Author Organization [facility] Address [address] [place] [address] Care Team Providers Care Emergency Department Rn Name Role Phone Millicent Chapa MD Primary Care Prov ider Encounter Details Date Type Department Care Team (Late st Contact Info) Description 01/05/2025 Telephone Adult Medicine - [place] [address] [place] [phone] Millicent Chapa MD [address] [place] [address] Social History Tobacco Use Types Packs/Day Years [...] Progress Notes * Margot Quezada [place] - 01/05/2025 3:56 PM EDT Spoke to pt and fixed the letter for her she wants it exactly like the letter Dr Eden did in October. She is working PT 20 hrs a week. Sent pt letter via [employer] * TENISHA Soliz - 01/05/2025 1:49 PM EDT I do not think I was aware that she had been totally out of work. Whenever she feels comfortable going back that is fine just have her tell us the date * Margot Quezada MA - 01/05/2025 1:29 PM EDT On the note she was given at her appt she was not given a date to retunr to work. When would you like her to return she is asking and I can fix the letter. * Vilma Hector - 01/05/2025 9:23 AM EDT Pt needs a new work note form her visit on 12/28 with Fredrick Munoz - no date to return to work - only to work 20 hrs a week - 4 hrs a day - 5 days a week -non weight bearing and next appt info - to see pt by telehealth documented in this encounter Plan of Treatment Upcoming Encounters Date Type Department Care Team (Late st Contact Info) Description 02/23/2025 9:30 AM EDT Office Visit Adult Medicine - [place] [address] [place] [address] Fredrick Munoz PA [address], [place] documented as of this encounter Visit Diagnoses Not on filedocumented in this encounter Care Teams Emergency Department Rn Relationship Specialty Start Date End Date Millicent Chapa MD [address] [place], [place] PCP - General 07/21/06 documented as of this encounter
--- OUTSIDE RECORDS SUMMARY | 2025-01-11 08:01 | XMS_ITS | Clinical Summary ---
Author Organization [facility]. Address [address] [address] Phone Care Team Providers Care Auricular Acupuncturist Name Role Phone Millicent Chapa MD Primary [...] Date Resolved Date Other asthma 08/22/2024 08/23/2024 Immunizations Immunization Administration Dates Next Due Influenza, MDCK, Quadrivalent, with preservative 04/14/2021 [email or web address] SARS-COV-2 03/27/2021 MMR 02/18/2017 MMRV 02/18/2017 PPD [...] Mass Index - - Plan of Treatment Health Maintenance Due Date Last Done Comments Breast Cancer Screening 1960 Pneumococcal Vaccine: 50+ Ye ars (1 of 2 - PCV) 12/29/1978 Colorectal Cancer Screening: Annual FOBT 12/29/2008 Colorectal Cancer Screening: Colonoscopy 12/29/2008 Colorectal Cancer Screening: Sigmoidoscopy 12/29/2008 Influenza Vaccine (#1) 2025 04/14/2021 Hepatitis B Vaccine Aged Out No longe r eligible based on patient's age to complete this topic Insurance [facility] Care Teams Auricular Acupuncturist Relationship Specialty Start Date End Date Millicent Chapa MD [facility] [address] [place] [address] PCP - General Internal Medicine 08/22/24
--- OUTSIDE RECORDS SUMMARY | 2025-01-11 08:01 | XMS_ITS ---
Author Name [facility] Organization Unknown Care Team Organization Name Specialty Phone Email Start Date End Da te [facility] Not Found Primary Care 07/19/2023 [facility] Not Found Primary Care 07/19/2023 01/08/2025
== END 2025-01-11 09:25 | disposition home or self-care (01) ==
LOC: HO.HSMS 07:59
PROVIDERS: PCP Internal Medicine; Visit Provider Nurse Practitioner Family
DX: R26.9 Unspecified abnormalities of gait and mobility (principal); M79.2 Neuralgia and neuritis, unspecified; R90.82 White matter disease, unspecified
CPT/HCPCS: 99214

== ENCOUNTER 2025-02-09 07:26 | Emergency (ER) | payer MEDICARE, SELFPAY ==
--- NOTE | ~2025-02-09 | XR_ITS ---
EXAMINATION: XR KNEE 4 OR MORE VIEWS LEFT HISTORY: left knee pain COMPARISON: Comparison is made with the prior examination dated 09/07/2024. FINDINGS: Four views of the left knee are submitted. The bones are osteopenic. The previously seen bilateral tibial plateau fracture has healed. There is no acute fracture or dislocation. The joint spaces are preserved. The soft tissues are unremarkable. There is no joint effusion. XR/XR knee LT 4V IMPRESSION: Osteopenia. No acute abnormality is identified. Electronically signed by: Jesus Alberto Dominguez MD 02/09/2025 12:38 PM EDT
--- NOTE | ~2025-02-09 | US_ITS ---
EXAMINATION: US TRIPLEX LOWER EXTREMITY, LEFT CLINICAL INFORMATION: Pain, left lower extremity. COMPARISON: November 27, 2024 TECHNIQUE: Color-flow triplex imaging with spectral analysis and compression Doppler were performed on the left lower extremity. FINDINGS: Respiratory variation, normal compression and augmented flow are demonstrated in the interrogated left common femoral vein, superficial femoral vein, profunda femoral vein, popliteal vein and midcalf peroneal and posterior tibial venous segments . There is no Lyons's cyst. US/US venous duplex LE IMPRESSION: No acute deep venous thrombosis interrogated veins, left lower extremity. Negative for DVT. Electronically signed by: Logan Morales MD 02/09/2025 12:06 PM EDT
[2025-02-09 07:46] VITALS: BP 114/83; PULSE 76; RESP 18; TEMP 36.8; O2SAT 98; BMI 18.9
[2025-02-09 08:00] VITALS: BP 110/60; PULSE 74; RESP 15; TEMP 36.9; O2SAT 100
--- NOTE | 2025-02-09 08:31 | ED_ITS ---
HPI - General Adult General Chief complaint: Extremity Problem Stated complaint: Severe leg pain Time Seen by Provider: 02/09/25 08:24 Source: patient Mode of arrival: ambulatory Limitations: no limitations History of Present Illness ED Provider: Juan Ryan HPI narrative: 64 yold female with pmh of left tibial plateau fracture, left perioneal nerve entrapment, presents to ED for lateral left knee pain radiating down to left foot left heel with burning painful sensation. Patient states has been chronic off and on since December 2023 since having tibial plateau fracture. Patient had to have then surgery to repair nerve perineal entrapment and is due for another entraoment surgery.. Patient is on hydrocodone, Motrin, Tylenol, and 1 mg prednisone for pain. Patient came to the ED for relief. Patient denies any new trauma, chest pain or shortness of breath Related Data Home Medications ?Medication ?Instructions ?Recorded ?Confirmed albuterol sulfate 90 mcg/actuation 2 puff inhalation Q 4-6H PRN 04/07/22 01/14/25 aerosol inhaler SOB/Wheezing hydromorphone 2 mg tablet 2 mg PO TID 09/08/24 5 lidocaine 5 % topical patch 1 patch topical DAILY 08/2901/14/25 acetaminophen 500 mg capsule 1,000 mg PO Q6H PRN 01/1101/14/25 hydromorphone 2 mg tablet 2 mg PO Q6H 01/11/25 5 pregabalin 25 mg capsule 25 mg PO DAILY 01/11/2512/29 pregabalin 50 mg capsule 50 mg PO BEDTIME 01/11/25 Previous Rx's ?Medication ?Instructions ?Recorded acetaminophen 650 mg/20.3 mL oral 650 mg (20.3 mL) PO Q4H PRN 02/01/24 solution moderate pain #0 mL lorazepam 0.5 mg tablet (Ativan) 0.5 mg PO TID PRN anx iety #7 tabs 02/01/24 polyethylene glycol 3350 17 gram 17 g PO DAILY PRN con stipation #0 02/01/24 oral powder packet ea ondansetron 4 mg disintegrating 4 mg PO Q8H PRN nausea and 07/13/24 tablet vomiting #7 tabs diclofenac sodium 1 % topical gel 4 g topical QID 30 d ays #100 grams 01/24/25 (Arthritis Pain (diclofenac)) prednisone 20 mg tablet 40 mg (2 x 20 mg) PO DAILY 5 days 02/09/25 #10 tabs Allergies Allergy/AdvReac Type Severity Reaction Status Date / Time gluten (Gluten) Allergy Severe PT HAS Verified 02/09/25 07:48 CELIAC DISEASE morphine Allergy Severe itching/ashok Verified 02/09/25 07:48 h Sulfa (Sulfonamide Allergy Severe LUPUS-LIKE Verified 02/09/25 07:48 Antibiotics) benztropine (Cogentin) Allergy Intermediate Rash Verified 02/09/25 07:48 ciprofloxacin (From Cipro) Allergy Intermediate TENDONOPATH Verified 02/09/25 07:48 Y/NEUROPATH Y shellfish derived Allergy Intermediate Hives Verified 02/09/25 07:48 promethazine Allergy Unknown Unknown Verified 02/09/25 07:48 nitrofurantoin (From AdvReac Severe Drug Verified 02/09/25 07:48 Macrodantin) induced Hep prochlorperazine (From AdvReac Unknown Verified 02/09/25 07:48 Compazine) Mandelamine Allergy Intermediate Drug Uncoded 11/02/24 21:08 induced Hep QUINOLONES Allergy Intermediate Unknown Uncoded 11/02/24 21:08 tramadol AdvReac Severe hand/feet Uncoded 11/02/24 21:08 buzzing Review of Systems 2 Review of Systems: Left lower extremity pain Yes all other systems are reviewed and are negative [facility] Past Medical History Medical History (Updated 02/10/25 @ 00:01 by Gregory Barfield) 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 Methotrexate, 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, 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 Undifferentiated connective tissue disease Rheumatoid factor positive Post-COVID chronic cough Neuropathy Asthma Diverticulosis Kidney stone Celiac sprue Surgical History (Updated 01/11/25 @ 08:08 by Chanda Dickerson CMA) History of surgery on lower extremity H/O cystoscopy S/P cardiac cath (~07/2020) Hx of excision of mass (~1999) Family History Family History Mother Cervical cancer Uterine cancer History of thyroid disorder Maternal Grandmother Diabetes Stroke Maternal Grandfather Diabetes Coronary artery disease Paternal Grandmother Uterine cancer Diabetes Stroke Paternal Grandfather Stroke Father Bladder cancer Social History Social History Household Members: Spouse Household Members Other:: Son Unable to assess alcohol history related to: Unknown Alcohol intake: never Patient Tobacco Use Status: Never used Tobacco Advance Directives Date on File: 04/27/22 service: No 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[employer] Physical Exam ED Vital Signs: Vital Signs - 24 hr 02/09/25 07:46 02/09/25 08:00 02/09/25 10:00 Temperature 98.3 F 98.4 F 98.4 F Pulse Rate 76 74 70 Respiratory Rate 18 15 15 Blood Pressure 114/83 110/60 110/63 Pulse Oximetry 98 100 100 Oxygen Delivery Method Room Air Room Air Room Air 02/09/25 12:00 Temperature 98.5 F Pulse Rate 67 Respiratory Rate 15 Blood Pressure 123/66 Pulse Oximetry 100 Oxygen Delivery Method Room Air BMI result Body Mass Index 18.9 Const General: cooperative, healthy appearing, comfortable, no acute distress, well developed, alert, awake and Physically active Orientation/consciousness: patient oriented x3 HENMT Head: Yes normal to inspection, Yes No palpable skull fracture present, Yes normocephalic and Yes atraumatic Eyes General: appearance normal, both eyes and all related structures Neck Neck: Yes normal visual inspection, Yes full ROM, Yes no lymphadenopathy, Yes no meningeal signs, Yes trachea midline, Yes supple, No anterior neck swelling and No tender Chest Chest palpation & inspection: normal inspection of the chest and normal palpation of entire chest wall Resp Effort & Inspection: normal respiratory effort and able to speak in complete sentences Auscultation: clear to auscultation bilaterally Cardio Jugular venous distension: no JVD Heart sounds: S1 normal heart sound present and S2 normal heart sound present GI Inspection: Yes normal to inspection Palpation (GI): Soft to palpation, not firm, nontender, no guarding and not rigid General: Yes no CVA tenderness Back/Spine/Pelvis Back: no CVA tenderness and No back tenderness Skin General skin exam: no rashes or lesions noted, elasticity normal and turgor normal Neuro General: patient oriented x3, gait normal, tone normal, moves all extremities, Normal light touch and pain sensation, no meningeal signs, no focal motor deficits, CN's II-XI intact bilaterally and normal sensation to monofilament Extrem General: Yes normal to inspection, Yes full ROM and Yes capillary refill normal Upper/lower leg/hip images: 2 1. Positive for tenderness on palpation. Negative for erythema, crepitus, ecchymosis, hotness, or coldness. Patient has chronic swelling of left lower extremity since fracture as per patient. Negative for skin tightness. Vascular motor neuro exam intact. No signs of compartment syndrome Psych Appearance: grossly normal, well kempt and not disheveled Medications Administered Discontinued Medications Generic Name Dose Route Start Last Admin Trade Name Corwin PRN Reason Stop Dose Admin Hydromorphone HCl 1 mg 02/09/25 09:43 02/09/25 10:50 Hydromorphone Hcl 1 Mg/Ml Syringe IM 02/09/25 09:44 1 mg ONCE ONE Administration Protocol Hydromorphone HCl 0.5 mg 02/09/25 11:36 02/09/25 11:40 Hydromorphone Hcl 0.5 Mg/0.5 Ml Syringe IVPUSH 02/09/25 11:37 0.5 mg ONCE ONE Administration Protocol Prednisone 40 mg 02/09/25 09:43 02/09/25 10:38 Prednisone 20 Mg Tablet PO 02/09/25 09:44 40 mg ONCE ONE Administration Pregabalin 50 mg 02/09/25 09:46 02/09/25 10:46 Pregabalin 50 Mg Capsule PO 02/09/25 09:47 Not Given ONCE ONE Medical Decision Making Medical Decision Making [facility] Narrative: [age] year female presents to ED for left lower extremity pain from the left lateral knee do left heel described as burning nerve pain since December 2023. Patient has had multiple ultrasound and x-rays. Patient has had nerve entrapment surgery 6 months ago and needs another surgery for nerve entrapemtn.. Patient denies any coldness or paralysis of extremity. Physical exam negative for signs of septic joint, compartment syndrome, arterial occlusion, osteomyelitis, necrotizing fasciitis, rhambdomylosis or any other life- threatening etiology. Not suspecting rhabdomyolysis or electrolyte abnormality. X-ray ultrasounds are normal. Patient has had relief with Dilaudid, prednisone, pre globulin. Patient will be discharged with steroids 40 mg for 5 days. Patient informed to stop taking her prednisone 1 mg shows prescribed. Patient states she will take preglabin at home. Differential Diagnosis Differential Diagnoses: The differential diagnosis associated with the presentation includes (DVT, fracture, septic joint) Admission/Observation Consideration of admission/observation: Escalation of care including admission/observation considered Independent Interpretation I performed an independent interpretation of an: Plain X-Ray and Ultrasound Radiology Impression Discussion of test interpretation with radiology: I have reviewed the radiologist's reading. Independent Historian Clinical information obtained from an independent historian. History obtained from or confirmed by: Other (Patient) Prescription Management I considered prescription management with: Pain Medication Discharge Plan Discharge Clinical Impression: Leg pain, Knee pain, Peripheral neuropathy Patient Disposition: Home, Self-Care Instructions: Peripheral Neuropathy (ED), Leg Pain (ED) Additional Instructions: Continue taking your pain medication as prescribed. Your x-ray ultrasound were reassuring. Make sure you keep your telehealth appointment with the neurosurgeon on Wednesday and recommend expedited in pressure re-evaluation. Return to the ED immediately for any severe pain, numbness/tingling, swelling, bluish black discoloration, redness, fever, chills, chest pain, shortness of breath, or any other concerning symptoms. You will be prescribed prednisone 40 mg for the next 5 days to help with the pain inflammation. Do not take any other steroids/prednisone. [address] [address] XRay Report Signed Patient: Ruby Stack MR#: [id number] : 1960 Acct:[id number] Age/Sex: 64 / F ADM Date: 02/09/25 Loc: .ED Attending Dr: Ordering Physician: Juan Ryan Date of Service: 02/09/25 Procedure(s): XR knee LT 4V Accession Number(s): [id number] cc: Juan Ryan; Millicent Chapa MD~ Reason for Exam: left knee pain EXAMINATION: XR KNEE 4 OR MORE VIEWS LEFT HISTORY: left knee pain COMPARISON: Comparison is made with the prior examination dated 09/07/2024. FINDINGS: Four views of the left knee are submitted. The bones are osteopenic. The previously seen bilateral tibial plateau fracture has healed. There is no acute fracture or dislocation. The joint spaces are preserved. The soft tissues are unremarkable. There is no joint effusion. XR/XR knee LT 4V IMPRESSION: Osteopenia. No acute abnormality is identified. Electronically signed by: Jesus Alberto Dominguez MD 02/09/2025 12:38 PM EDT RP Dictated By: Jesus Alberto Dominguez MD Signed By: <Electronically signed by Jesus Alberto Dominguez MD in OV> 02/09/25 1238 DD/ 1220 TD/TT: 02/09/25 1221 Information Technology Assistant: Ordering Physician: Juan Ryan Date of Service: 02/09/25 Procedure(s): US venous duplex LE LT Accession Number(s): [id number] cc: Juan Ryan; Millicent Chapa MD~ Reason for Exam: left leg pain EXAMINATION: US TRIPLEX LOWER EXTREMITY, LEFT CLINICAL INFORMATION: Pain, left lower extremity. COMPARISON: November 27, 2024 TECHNIQUE: Color-flow triplex imaging with spectral analysis and compression Doppler were performed on the left lower extremity. FINDINGS: Respiratory variation, normal compression and augmented flow are demonstrated in the interrogated left common femoral vein, superficial femoral vein, profunda femoral vein, popliteal vein and midcalf peroneal and posterior tibial venous segments . There is no Lyons's cyst. US/US venous duplex LE LT IMPRESSION: No acute deep venous thrombosis interrogated veins, left lower extremity. Negative for DVT. Electronically signed by: Logan Morales MD 02/09/2025 12:06 PM EDT RP Prescriptions: New prednisone 20 mg tablet 40 mg PO DAILY 5 Days Qty: 10 0RF No Action diclofenac sodium [Arthritis Pain (diclofenac)] 1 % gel 4 g topical QID 30 Days Qty: 100 3RF Rx Instructions: apply to bilateral knee acetaminophen 650 mg/20.3 mL Solution 650 mg PO Q4H PRN (Reason: moderate pain) Qty: 0 0RF polyethylene glycol 3350 17 gram Powder In Packet 17 g PO DAILY PRN (Reason: constipation) Qty: 0 0RF lorazepam [Ativan] 0.5 mg tablet 0.5 mg PO TID PRN (Reason: anxiety) Qty: 7 0RF albuterol sulfate 90 mcg/actuation HFA aerosol inhaler 2 puff inhalation Q4-6H PRN (Reason: SOB/Wheezing) hydromorphone 2 mg tablet 2 mg PO Q6H pregabalin 25 mg capsule 25 mg PO DAILY acetaminophen 500 mg capsule 1,000 mg PO Q6H PRN pregabalin 50 mg capsule 50 mg PO BEDTIME ondansetron 4 mg tablet,disintegrating 4 mg PO Q8H PRN (Reason: nausea and vomiting) Qty: 7 0RF lidocaine 5 % adhesive patch,medicated 1 patch topical DAILY hydromorphone 2 mg tablet 2 mg PO TID Referrals: Millicent Chapa MD [Primary Care Provider, Internal Medicine] - 2 days Referral Note: Peripheral neuropathy, chronic leg pain Clinical Impression: Leg pain; Peripheral neuropathy; Knee pain Stand Alone Forms: Work/School Release Interventions: ED Discharge Assessment Last Done: 02/09/25 15:21 Discharge Date/Time: 02/09/25 15:29 Print Language: Burkinan
--- OUTSIDE RECORDS SUMMARY | 2025-02-09 09:03 | XMS_ITS | Clinical Summary ---
Author Organization [facility]. Address [address] [address] Phone Care Team Providers Care Bedspread Folder Name Role Phone Millicent Chapa MD Primary [...] Due Influenza, MDCK, Quadrivalent, with preservative 04/14/2021 [employer] SARS-COV-2 03/27/2021 MMR 02/18/2017 MMRV 02/18/2017 PPD [...] patient's age to complete this topic Insurance [facility] Care Teams Bedspread Folder Relationship Specialty Start Date End Date Millicent Chapa MD [facility] [place] [address] PCP - General Internal Medicine 08/22/24
--- OUTSIDE RECORDS SUMMARY | 2025-02-09 09:03 | XMS_ITS | Encounter Summary ---
Author Organization [facility] Address [address] [place] [address] Care Team Providers Care Chemical Reclamation Equipment Operator Name Role Phone Millicent Chapa MD Primary Care Prov ider Encounter Details Date Type Department Care Team (Late st Contact Info) Description 09/08/[address] [facility] at [address] [phone] Chilango Walsh MD [facility] [address] [place] [phone] Social History Tobacco Use Types Packs/Day Years [...] Orientation Decline 09/02/2021 9: 08 AM EDT documented as of this encounter Plan of Treatment Not on file documented as of this encounter Visit Diagnoses Not on filedocumented in this encounter Care Teams Chemical Reclamation Equipment Operator Relationship Specialty Start Date End Date Millicent Chapa MD [address] [place] [phone] PCP - General Internal Medicine 09/02/21 documented as of this encounter
--- OUTSIDE RECORDS SUMMARY | 2025-02-09 09:03 | XMS_ITS | Encounter Summary ---
Author Organization [facility] Address [address] [place] [address] Care Team Providers Care Air Cargo Specialist Name Role Phone Millicent Chapa MD Primary Care Prov ider Reason for Visit * Reason Onset Date Comments Appointment 02/05/2025 Encounter Details Date Type Department Care Team (Late st Contact Info) Description 02/05/2025 Telephone Adult Medicine [facility] [address] [place] [address] Maggi Richard LPN Social History Tobacco Use Types Packs/Day Years [...] as of this encounter Progress Notes * Chun Overton - 02/05/2025 10:12 AM EDT Pt calling to find out what the status is on the refill for the dilaudid and if it's going to be done. Pls leatha, ranjeet. * Maggi Richard LPN - 02/05/2025 9:55 AM EDT Message left on verified voice mail for patient to return call Appointment scheduled with Dr Meek Cruz 02/12 at arrival time 9:30 appointment 9:45 AM to discuss controlled substance contract, advised to leave a message if she can keep this time documented in this encounter Plan of Treatment Upcoming Encounters Date Type Department Care Team (Late st Contact Info) Description 02/12/2025 3:00 PM EDT Office Visit Adult Medicine - [place] [address] [place] [address] Millicent Chapa MD [address] [place], [place] 02/14/2025 10:30 AM EDT Appointment Ultrasound - [place] [address] [place] [address] 02/23/2025 9:30 AM EDT Office Visit [facility] [place] [place] [address] [place] [address] Fredrick Munoz PA [address] [place], [place] documented as of this encounter Visit Diagnoses Not on filedocumented in this encounter Care Teams Air Cargo Specialist Relationship Specialty Start Date End Date Millicent Chapa MD [address] [place], [place] PCP - General 07/21/06 documented as of this encounter
--- OUTSIDE RECORDS SUMMARY | 2025-02-09 09:03 | XMS_ITS | Clinical Summary ---
Author Organization [facility] Address [address] [place] [address] Phone Care Team Providers Care Job Placement Officer Name Role Phone Millicent Chapa MD Primary Care Pr ovider Allergies Active Allergy Reactions Criticality Noted Date Comments Bee Venom Protein (Honey Bee) Swelling,Wheezing 04/11/2012 Benztropine Other (See Comments) 05/30/2013 BLURRED VISION, BRADYCARDIA Benztropine Mesylate Unknown 05/30/2013 Bupivacaine Hcl Other (See Comments) 05/30/2013 BILATERAL MOTOR/SENSORY LOSS LOWER EXTREMITIES S/P EPIDURAL Gluten Other (See Comments) 05/30/2013 MALABSORPTION Gluten Protein GI Upset 11/09/2024 CELIAC's DISEASE Iodinated Contrast Media Other (See Comments) 05/30/2013 THROAT NUMBNESS Methenamine Other (See Comments) 08/31/2009 Drug Induced Hepatitis Morphine Itching 11/09/2024 Hydromorphone is tolerable Nitrofurantoin Other (See Comments) 08/30/2009 Lupus-like rxn Nitrofurantoin Macrocrystalline Other (See Comments) 05/30/2013 HEPATITIS Phs Other Free Text-See Phs Viewer 04/11/2012 cipro quinolones Prochlorperazine Dystonia 08/30/2009 Shellfish Derived Other (See Comments) 05/30/2013 SWELLING,HIVES,SOB Silver Unknown 05/30/2013 Sulfa (Sulfonamide Antibiotics) Rash 08/30/2009 Trazodone Other (See Comments) 08/30/2009 rash Medications LORazepam (ATIVAN) 0.5 MG tablet Take 0.5 mg by mouth 2 (two) times a day. Active acetaminophen (TYLENOL) 500 MG tablet Take 1,000 mg by mouth every 6 (six) hours as needed. Active ibuprofen (ADVIL,MOTRIN) 600 MG tablet Take 600 mg by mouth every 6 (six) hours as needed for pain (specific location in comments). Active ondansetron (ZOFRAN-ODT) 4 MG disintegrating tablet Take 4 mg by mouth every 8 (eight) hours as needed for nausea. For nausea r/t Dilaudid Active HYDROmorphone (DILAUDID) 2 MG tablet Take 1-2 tablets (2-4 mg total) by mouth every 6 (six) hours as needed for pain (specific location in comments). 12 tablet 5 08/14/19 26 Active Active Problems Problem Noted Date Diagnosed Date Shoulder pain 02/05/2014 Overview (07/21/2014): Shoulder pain Rotator cuff syndrome 06/15/2013 Overview (07/21/2014): Rotator cuff syndrome Encounters Date Type Department Care Team Description 02/02/2025 Telephone [facility] Department of Orthopaedic Surgery, Foot & Ankle Service [address], [address] [place] [address] Order Mode, Space Controller 02/02/2025 Orders Only [facility] Department of Orthopaedic Surgery, Foot & Ankle Service [address], [address] [place] [address] Isidro Vergara MD 01/03/2025 2:53 PM EDT - 01/03/2025 11:59 PM EDT Hospital Encounter [facility] PLASTER ROOM [address] [place] [address] Isidro Vergara MD Discharge Disposition: Home or Self Care 01/03/2025 11:30 AM EDT Office Visit [facility] Department of Orthopaedic Surgery, Foot & Ankle Service [address] [place] [address] Floor, [address] [place] [address] Isidro Vergara MD Neuritis (Primary Dx); Peroneal tendonitis of left lower leg 01/03/2025 10:55 AM EDT - 01/03/2025 2:52 PM EDT Hospital Encounter [facility] Imaging - Braulio Nicole [address], 3rd [place] [address] Isidro Vergara MD Discharge Disposition: Home or Self Care 12/29/2024 Orders Only [facility] Department of Orthopaedic Surgery, Foot & Ankle Service [address] [facility], 3rd [address], [address] [place] [address] Christopher Jaimes [place] Pain (Primary Dx) 12/26/2024 10:30 AM EDT Office Visit [facility] Neurosurgery at [address], [address] [place] [address] Ashwin Tate MD Common peroneal neuropathy, left (Primary Dx) 12/14/2024 Telephone [facility] Pain Management [address] [place] [address] Aurora Barrios 11/14/2024 9:30 AM EDT Office Visit [facility] Neurosurgery at [address], [address] [place] [address] Ashwin Tate MD Common peroneal neuropathy, left (Primary Dx) 11/10/2024 2:36 PM EDT Anesthesia Event [facility] PERIOPERATIVE DEPT [address] [place] [address] Leonela Sharma MD Haleudeth, Jessica Perkins, RICHARD 11/10/2024 1:44 PM EDT - 11/10/2024 3:30 PM EDT Surgery [facility] PERIOPERATIVE DEPT [address] [place] [address] Ashwin Tate MD DECOMPRESSION PERONEAL NERVE 11/10/2024 10:44 AM EDT - 11/10/2024 5:37 PM EDT Hospital Encounter [facility] PERIOPERATIVE DEPT [address] [place] [address] Ashwin Tate MD Discharge Disposition: Home or Self Care 11/10/2024 Procedure Pass [facility] PERIOPERATIVE DEPT [address] [place] [address] 11/09/2024 1:00 PM EDT Pre-Admission Testing [facility] Pre-Procedure Evaluation Department [place] [phone] Ashwin Tate MD from Last 3 Months Family History Medical History Relation Comments Coronary artery disease Father Coronary Artery Disease Coronary artery disease Mother Coronary Artery Disease Relation Status Comments Father Mother Social History Tobacco Use Types Packs/Day Years Used Date Smoking Tobacco: Never Smokeless Tobacco: Never Tobacco Cessation:Counseling Given: Not Answered Alcohol Use Standard Drinks/Week Comments Not Currently [...] high school, GED, job training, learning the Lithuanian language, technical skills, or developing parenting skills)? [...] Sign Reading Time Taken Comments Blood Pressure 111/68 11/10/2024 4:20 PM EDT Pulse 81 11/10/2024 4:20 PM EDT Temperature 36.5 C (97.7 F) 11/10/2024 4:20 PM EDT Respiratory Rate 18 11/10/2024 4:20 PM EDT Oxygen Saturation 99% 11/10/2024 4:20 PM EDT Inhaled Oxygen Concentration - - Weight 45.4 kg (100 lb) 11/09/2024 1:18 PM EDT Height 154.9 cm (5' 1 ) 11/09/2024 1:18 PM EDT Body Mass Index 18.89 11/09/2024 1:18 PM EDT Plan of Treatment Upcoming Encounters Date Type Department Care Team (Late st Contact Info) Description 02/12/2025 10:45 AM EDT Telemedicine [facility] Neurosurgery at [facility] [address], [address] [place] [address] Ashwin Tate MD [address] [place] [address] [email or web address] 06/05/2025 11:30 AM EST Office Visit [facility] Neurosurgery at [facility] [address], [address] [place] [address] Ashwin Tate MD [address] [place] [id number] [email or web address] Health Maintenance Due Date Last Done Comments Adult Td,Tdap Booster 1959 LIPID PANEL 1959 DEPRESSION SCREENING 1971 HIV ONE-TIME SCREENING (18-6 5 YEARS) 12/29/1977 MAMMOGRAM 1999 COLOGUARD 12/29/2004 COLONOSCOPY 12/29/2004 COLORECTAL CANCER SCREENING 12/29/2004 FIT TEST 12/29/2004 FOBT 12/29/2004 SIGMOIDOSCOPY 12/29/2004 VIRTUAL COLONOSCOPY 12/29/2004 PNEUMOCOCCAL VACCINES (50+ years) (1 of 1 - PCV) 12/29/2009 ZOSTER VACCINES (1 of 2) 12/29/2009 INFLUENZA VACCINE (#1) 2024 3, 04/14/2021 OSTEOPOROSIS SCREENING INITI AL (ONE-TIME) 12/29/2024 COVID-19 VACCINE (2 - 2024-2 6 season) 2025 03/27/2021 RSV VACCINE (1 - 1-dose 75+ series) 12/29/2034 HEPATITIS C SCREENING Completed 10/11/2013 SMOKING STATUS SCREENING (On ce After 26 Yrs) Completed 11/09/2024 HEPATITIS A VACCINES Aged Out No long er eligible based on patient's age to complete this topic HIB VACCINES Aged Out No longer eligi ble based on patient's age to complete this topic MENINGOCOCCAL VACCINES (ACWY) Aged Out No longer eligible based on patient's age to complete this topic MENINGOCOCCAL VACCINES (B) Aged Out N o longer eligible based on patient's age to complete this topic Medical Devices Not on file Procedures Procedure Name Priority Date/Time Associated Diagnosis Comments XR ANKLE 3 OR MORE VIEWS (LEFT) Routine 01/03/2025 11:14 AM EDT Pain [place] NEUROPLASTY OTHER ARM/LEG NERVE,OPEN 11/10/2024 2:44 PM EDT Neuropathy Special Needs Vendor: [employer] StimulatorPositioning: SupineDrape: ExtremityEquipment: MicroscopeRetractor: Cracking the clavicle (Y/N):Shunt Passer (Y/N): AIRWAY PLACEMENT Routine 11/10/2024 2:44 PM EDT HISTORICAL LAB Routine 10/11/2013 5:00 PM EDT from Last 3 Months or Most Recently Relevant to Health Maintenance Results * XR ANKLE 3 OR MORE [...] clinician's provided indication for this examination in [facility]:Pain COMPARISON: MRI ANKLE WITHOUT CONTRAST (LEFT) 2024- FINDINGS: Diffuse osseous demineralization. Diffuse soft tissue swelling. Nodefinite fracture. No substantial degenerative changes. IMPRESSION: Diffuse osseous demineralization and diffuse soft tissue swelling. us Isidro Vergara MD IMG XR LOWER EXTREMITY Isabella l Result * ANES ETT DOUBLE LUMEN - AIRWAY LDA (11/10/2024 2:44 PM EDT) Narrative Tato Kenney MD - 11/10/2024 2:44 PM EDT Tato Kenney MD 11/10/2024 2:57 PM Airway Placement Procedure Note: Procedure performed by: fellow/resident/DRONE PILOT Anesthesiologist: Leonela Sharma MD Fellow/Resident/DRONE PILOT: Tato Kenney MD Airway procedure initiated at:11/10/2024 2:44 PM and ended at. Personal Protective Equipment: Mask: surgical mask Gloves: gloves Mask Ventilation: Quality: not attempted Airway Placement: Technique: LMA Rapid sequence induction: no LMA Insertion: LMA size: 3 LMA placement attempts: 1. Outcomes: Evidence of dental injury? no Complications observed? no us Leonela Sharma MD [place] ANESTHESIA Final Result * Historical Lab (10/11/2013 5:00 PM EDT) TOTAL 25 ([place]) VITAMIN D 23.7 20 - 80 NG/ML [facility] NEGATIVE NEGATIVE [facility] HBc IGM AB NEGATIVE NEGATIVE [facility] ANTI - HCV NEGATIVE NEGATIVE [facility] 10/11/2013 5:00 PM EDT 10/11/2013 5:27 PM EDT us Sarthak Fritz MD LAB BLOOD ORDERABLES Final Res ult [address] [address] from Last 3 Months or Most Recently Relevant to Health Maintenance Insurance MEDICARE PART A & B [employer] SUPPLEMENT Member Subscriber Plan / Payer [facility] Name:Ruby Tarango Relation to Subscriber:Self Name:Ruby Tarango Payer ID:[id number] (NAIC) Type:Indemnity Address: [place] [id number] [place] [address] MEDICARE PART A & B Member Subscriber Plan / Payer ([facility] Name:Ruby Tarango Member ID:[id number] Relation to Subscriber:Self Name:Ruby Tarango Subscriber ID:[id number] Payer ID:[id number] Group ID:Not on file Type:Medicare Address: [facility] [address] [place] [phone] [employer] SUPPLEMENT Member Subscriber Plan / Payer ([facility] Name:Ruby Tarango Relation to Subscriber:Self Name:Ruby Tarango Payer ID:[id number] (NAIC) Type:Indemnity Address: [facility] [address] [place] [address] MEDICARE PART A & B [employer] MED[employer] SUPPLEMENT MEDICARE PART A & B [employer] MEDEX SUPPLEMENT MEDICARE PART A & B [facility] MEDEX SUPPLEMENT MEDICARE PART A & B [employer] MEDEX SUPPLEMENT Care Teams Job Placement Officer Relationship Specialty Start Date End Date Millicent Chapa MD [address] [place] [address] PCP - General Internal Medicine 05/18/24 Additional Source Comments The information contained in this document represents components of the legal health record. It is not the complete legal health record.[facility]
--- OUTSIDE RECORDS SUMMARY | 2025-02-09 09:03 | XMS_ITS | Encounter Summary ---
Author Organization [facility] Address [address] [place] [address] Care Team Providers Care Patient Svcs Mgr Name Role Phone Millicent Chapa MD Primary Care Prov ider Reason for Visit * Reason Onset Date Comments Medication Problem 02/01/2025 Encounter Details Date Type Department Care Team (Late st Contact Info) Description 02/01/2025 Telephone Adult Medicine - [place] [address] [place] [phone] Millicent Chapa MD [address] [place] [address] Social History Tobacco Use Types Packs/Day Years [...] of this encounter Progress Notes * Vilma Hector - 02/01/2025 9:07 AM EDT Medication Problem: What is the name of the medication patient is having a problem with?: lyrica What is the problem?: increased stuttering - pt stopped last night - there was an increase to 50 mgat night - pt ?? Is she should be weened off of this med Who is calling about the problem? : The patient Is this a NEW medication?: no How long has the patient been taking this medication? 2 mos Who prescribed this medication for the patient? Kate Munoz Who is patients PCP?: Millicent Chapa MD Payor: GUNNAR Caputo [place] / Plan: [facility] PPO / Product Type: *No Product type* / documented in this encounter Plan of Treatment Upcoming Encounters Date Type Department Care Team (Late st Contact Info) Description 02/12/2025 3:00 PM EDT Office Visit Adult Medicine - [place] [address] [place] [address] Millicent Chapa MD [address] [place] [address] 02/14/2025 10:30 AM EDT Appointment Ultrasound - [place] [place] [address] 02/23/2025 9:30 AM EDT Office Visit Adult Medicine - [place] [address] [place] [address] Fredrick Munoz PA [address] [place] [address] documented as of this encounter Visit Diagnoses Not on filedocumented in this encounter Care Teams Patient Svcs Mgr Relationship Specialty Start Date End Date Millicent Chapa MD [address] [place] [address] PCP - General 07/21/06 documented as of this encounter
--- OUTSIDE RECORDS SUMMARY | 2025-02-09 09:03 | XMS_ITS | Encounter Summary ---
Author Organization [facility] Address [address] [place] [address] Care Team Providers Care Ethylene Plant Helper Name Role Phone Millicent Chapa MD Primary Care Prov ider Encounter Details Date Type Department Care Team (Late st Contact Info) Description 09/10/[address] [facility] at [address] [phone] Chilango Walsh MD [facility] [address] [place] [phone] Social History Tobacco Use Types Packs/Day [...] on filedocumented in this encounter Care Teams Ethylene Plant Helper Relationship Specialty Start Date End Date Millicent Chapa MD [address] [place] [phone] PCP - General Internal Medicine 09/02/21 documented as of this encounter
--- OUTSIDE RECORDS SUMMARY | 2025-02-09 09:04 | XMS_ITS | Clinical Summary ---
Author Organization [facility] [address] [facility] Address [address] [place] [address] Phone Care Team Providers Care Fuel Oil Truck Driver Name Role Phone Millicent Chapa MD Primary [...] hours as needed for Cough or Wheezing. 024 Active ondansetron ODT (ZOFRAN-ODT) 4 mg disintegrating tablet Take 1 Tablet by mouth every 8 hours as needed for Nausea (prn). Take 1 Tablet by mouth every 8 hours as needed. 023 Active alendronate (FOSAMAX) 70 mg tablet Take 1 tablet (70 mg total) by mouth every 7 (seven) days. Take in the morning with a full glass of water, on an empty stomach, and do not take anything else by mouth or lie down for the next 30 min. 4 each 3 025 2025 Active methotrexate 2.5 mg tablet Take 1 tablet (2.5 mg total) by mouth 1 (one) time per week Follow directions carefully, and ask to explain any part you do not understand. Take exactly as directed. 12 tablet 1 Active naloxone (Narcan) 4 mg/0.1 mL nasal spray Administer 1 each (4 mg total) into affected nostril(s) if needed for opioid reversal. Give 4 mg (1 spray) into one nostril. May repeat every 2-3 minutes if needed, alternating nostrils, until medical assistance becomes available. 2 each 025 2025 Active LORazepam (ATIVAN) 0.5 mg tablet TAKE 1 TABLET BY MOUTH 2 TIMES A DAY. MAX DAILY AMOUNT: 1 MG 56 tablet 2 Active HYDROmorphone (Dilaudid) 2 mg tabletIndications :Pain of left heel,Chronic pain of left knee,Closed fracture of left tibial plateau, sequela Take 1 tablet (2 mg total) by mouth every 8 (eight) hours. Max Daily Amount: 6 mg 84 tablet Active ibuprofen (MOTRIN ORAL) Take by mouth. 2024 Discontinued LORazepam (ATIVAN) 0.5 mg tablet Take 1 tablet (0.5 mg total) by mouth 2 (two) times a day. Max Daily Amount: 1 mg 56 tablet 2 025 2024 Discontinued pregabalin (LYRICA) 25 mg capsule TAKE 2 CAPSULES (50 MG TOTAL) BY MOUTH 2 (TWO) TIMES A DAY. MAX DAILY AMOUNT: 100 MG 112 capsule 025 2024 Discontinued HYDROmorphone (Dilaudid) 2 mg tabletIndications :Pain of left heel,Chronic pain of left knee,Closed fracture of left tibial plateau, sequela Take 1 tablet (2 mg total) by mouth every 8 (eight) hours for 14 days. Max Daily Amount: 6 mg 42 tablet 025 2024 Discontinued(R eorder) HYDROmorphone (Dilaudid) 2 mg tabletIndications :Pain of left heel,Chronic pain of left knee,Closed fracture of left tibial plateau, sequela Take 1 tablet (2 mg total) by mouth every 8 (eight) hours for 14 days. Max Daily Amount: 6 mg 42 tablet 025 2024 Discontinued(R eorder) pregabalin (LYRICA) 25 mg capsuleIndication s:Neuralgia TAKE 2 CAPSULES (50 MG TOTAL) BY MOUTH 2 TIMES A DAY. MAX DAILY AMOUNT: 100 MG 112 capsule 025 2024 Discontinued methylPREDNISolon e (MEDROL DOSPAK) 4 mg tablet Take as directed on package. 21 tablet 025 2024 Active Problems Problem Noted Date Diagnosed Date Chronic foot pain, left 12/28/2024 Assessment & Plan (12/28/2024 6:51 PM EDT): I am not quite sure what can be done for patient as she is following with multiple specialists and strongly recommend she continue with them to see what other options might be beneficial. Opioid contract exists 09/27/2024 Assessment & Plan (12/28/2024 6:51 PM EDT): Will continue with Dilaudid for now Advised patient that we will defer to Dr. Eden regarding any increase in medication but I do not think that will be extraordinarily helpful and she is already on a significant dose of hydromorphone 6 mg total daily and this in combination with the Lyrica and Ativan can be excessively sedating and dangerous Assessment & Plan (09/27/2024 12:36 PM EDT): [...] Encounters Date Type Department Care Team Description 02/05/2025 Telephone Adult [address] [phone] Maggi Richard LPN 02/02/2025 11:30 AM EDT Office Visit Adult [facility] [address] [place] [phone] Fredrick Munoz PA Periumbilical abdominal pain (Primary Dx); Chronic foot pain, left; Opioid contract exists; Chronic pain of left knee 02/02/2025 Telephone Adult [address] [phone] Millicent Subramanian MD 02/01/2025 Telephone Adult [facility] [address] [place] [phone] Millicent Subramanian MD 02/01/[address] [phone] Millicent Subramanian MD 01/05/[address] [phone] Millicent Subramanian MD 12/28/2024 1:30 PM EDT Telemedicine [address] [phone] Fredrick Munoz PA Opioid contract exists (Primary Dx); Chronic foot pain, left; History of neurologic surgery 12/04/[address] [phone] Millicent Subramanian MD 11/29/2024 10:30 AM EDT Office Visit [address] [phone] Millicent Subramanian MD Chronic obstructive pulmonary disease, unspecified COPD type (CMS/HCC V24, CMS/HCC V28) (Primary Dx); Complex regional pain syndrome type 1 of left lower extremity; Tick bite of thoracic wall, unspecified whether front or back, subsequent encounter 11/28/[address] [phone] Millicent Subramanian MD 11/28/[address] [phone] Millicent Subramanian MD from Last 3 Months Immunizations Name Administration Dates Next Due Influenza Quadravalent, MDCK , 0.5ml, with preservative (Flucelvax) 6mo and older 04/14/2021 RPI ([employer] SARS-CoV-2 COVID -19, vector-nr, [id number], preservative free 03/27/2021 PPD Test 03/17/2017,02/18/2010 Surgical History Surgery Date Site/Laterality Comments VAGINAL DELIVERY PROCEDURE: CT VAGINAL DELIVERY ONLY; COMMENT: x3 Medical History [...] Sign Reading Time Taken Comments Blood Pressure 111/65 02/02/2025 11:30 AM EDT Pulse 82 02/02/2025 11:30 AM EDT Temperature 36.6 C (97.9 F) 02/02/2025 11:30 AM EDT Respiratory Rate - - Oxygen Saturation - - Inhaled Oxygen Concentration - - Weight 45.4 kg (100 lb) 02/02/2025 11:30 AM EDT Height 154.9 cm (5' 1 ) 02/02/2025 11:30 AM EDT Body Mass Index 18.89 02/02/2025 11:30 AM EDT Plan of Treatment Upcoming Encounters Date Type Department Care Team (Late st Contact Info) Description 02/12/2025 3:00 PM EDT Office Visit Adult Medicine [address] [phone] Millicent Chapa MD [address] [place], [place] 02/14/2025 10:30 AM EDT Appointment Ultrasound - [address] [phone] 02/23/2025 9:30 AM EDT Office Visit Adult Medicine - [facility] [address] [place] [phone] Fredrick Munoz PA [address] [place], [place] Health Maintenance Due Date Last Done Comments DTaP,Tdap,and Td Vaccines (1 - Tdap) 12/29/1978 Pneumococcal Vaccine: 50+ Years (1 of 2 - PCV) 12/29/1978 Zoster Vaccines (1 of 2) 04/15/2017 017, 02/18/2017 RSV Immunization Adult Patients (1 - Risk 60-74 years 1-dose series) 2019 Cervical Cancer Screening: P ap Smear 12/29/2020 12/29/2017 COVID-19 Vaccine (2 - Jansse n risk series) 04/24/2021 03/27/2021 Medicare Annual Wellness Visit 05/04/2022 Social Influencers of Health Screening 05/04/2022 Depression Screening 05/31/2024 Colorectal Cancer Screening: Colonoscopy 10/26/2024 10/26/2014 Falls Risk Assessment 12/29/2024 Influenza Vaccine (#1) 2025 , 03/26/2023, 04/14/2021 Breast Cancer Screening 2025 12/31/19 24, 12/31/2023 Osteoporosis Screening (Bone Density Screening) 07/06/2032 07/06/2022 MMR Vaccines Aged Out 02/18/2017, 02/18/2017 No [...] Procedure Name Priority Date/Time Associated Diagnosis Comments CBC WITH AUTO DIFFERENTIAL Routine 02/02/2025 12:17 PM EDT Periumbilical abdominal pain CYCLIC CITRULLINATED PEPTIDE, IGG AND IGA Routine 02/02/2025 12:17 PM EDT Swelling of limb CBC AND DIFFERENTIAL Routine 02/02/2025 12:17 PM EDT Periumbilical abdominal pain AIDEN IFA WITH TITER AND PATTERN Routine 02/02/2025 12:17 PM EDT Left leg swelling BORRELIA BURGDORFERI ANTIBODY Routine 02/02/2025 12:17 PM EDT Left leg swelling RHEUMATOID FACTOR Routine 02/02/2025 12: 17 PM EDT Left leg swelling C-REACTIVE PROTEIN Routine 02/02/2025 12 :17 PM EDT Left leg swelling EXTERNAL ULTRASOUND REPORT 11/27/2024 EXTERNAL ULTRASOUND REPORT 11/27/2024 EXTERNAL XRAY REPORT 11/27/2024 DXA BONE DENSITY STUDY 1+ SITS AXIAL SKEL Routine 07/06/2022 11:16 AM EST Age-related osteoporosis without current pathological fracture HEPATITIS C SCREENING Routine 04/03/2019 PAP SMEAR Routine 12/29/2017 COLONOSCOPY Routine 10/26/2014 from Last 3 Months or Most Recently Relevant to Health Maintenance Results * Cyclic citrullinated peptide, IgG and IgA (02/02/2025 12:17 PM EDT) Pathologist [facility] [place] CCP AB Quant 7 <20 Units LAB CHEMISTRY METHOD 02/06/2025 11:40 AM EDT [facility] Cyclic Citrullinated Peptide (CCP) Antibody Negative Negative LAB CHEMISTRY METHOD 02/06/2025 11:40 AM EDT [facility] Blood Venous blood specimen / Unknown Venipuncture / Unknown 02/02/2025 12:17 PM EDT 02/02/2025 12:17 PM EDT Millicent Chapa MD LAB BLOOD ORDERABL ES Final Result Performing Organization Address [facility]/ZIP Co de Phone Number [facility] [address] [place] [address], [place] [phone] * AIDEN IFA with titer and pattern (02/02/2025 12:17 PM EDT) [facility] AIDEN Negative Negative 02/06/2025 1:40 PM EDT [facility] Comment:AIDEN performed by ind irect immunofluorescence (IFA) using HEp-2 substrate. Blood Venous blood specimen / Unknown Venipuncture / Unknown 02/02/2025 12:17 PM EDT 02/02/2025 12:17 PM EDT Millicent Chapa MD LAB BLOOD ORDERABL ES Final Result Performing Organization Address City/[facility]/ZIP Co de Phone Number [facility] [address] [place] [address], [place] [phone] * (ABNORMAL) CBC auto differential (02/02/2025 12:17 PM EDT) [facility] WBC 4.7(L) 4.8 - 10.8 K/mcL LAB HEMETOLOGY METHOD 02/02/2025 1:35 PM EDT [facility] RBC 4.00 3.80 - 4.80 M/mcL LAB HEMETOLOGY METHOD [facility] Hemoglobin 11.6 11.5 - 16.0 g/dL LAB HEMETOLOGY METHOD 02/02/2025 1:[facility] Hematocrit 37.2 35.0 - 47.0 % LAB HEMETOLOGY METHOD 02/02/2025 1:35 PM EDT [facility] MCV 92.1 79.0 - 98.0 FL LAB HEMETOLOGY METHOD 02/02[facility]2025 1:[facility] MCH 28.7 27.0 - 32.0 pcg LAB HEMETOLOGY METHOD 02/02/2025 1:[facility] MCHC 31.2(L) 32.0 - 37.0 g/dL LAB HEMETOLOGY METHOD 02/02/2025 1:35 PM [facility] RDW 12.9 11.0 - 15.0 % LAB HEMETOLOGY METHOD 02/02/2025 1:35 PM [facility] Platelets 257 130 - 400 K/mcL LAB HEMETOLOGY METHOD 02/02/2025 1:[facility] MPV 11.1(H) 7.0 - 11.0 FL LAB HEMETOLOGY METHOD 02/02/2025 1:35 PM EDT [facility] NRBC 0.0 <1.0 % LAB HEMETOLOGY METHOD 02/02[facility]2025 [facility] NRBC Absolute 0.00 <0.10 K/mcL LAB HEMETOLOGY METHOD 02/02/2025 1:[facility] Neutrophils Relative 72.7 % LAB HEMETOLOGY METHOD 02/02/2025 1:35 PM EDT [facility] Lymphocytes Relative 20.1 % LAB HEMETOLOGY METHOD 02/02/2025 1:35 PM EDT [facility] Monocytes Relative 4.7 % LAB HEMETOLOGY METHOD 02/02/2025 [facility] Eosinophils Relative 1.7 % LAB HEMETOLOGY METHOD 02/02/2025 1:35 PM EDT [facility] Basophils Relative 0.6 % LAB HEMETOLOGY METHOD 02/02/2025 1:35 PM [facility] Immature Granulocytes Relative 0.2 % LAB HEMETOLOGY METHOD 02/02/2025 1:35 PM [facility] Neutrophils Absolute 3.43 1.50 - 7.00 K/mcL LAB HEMETOLOGY METHOD 02/02/2025 1:35 PM [facility] Lymphocytes Absolute 0.95(L) 1.00 - 5.00 K/mcL LAB HEMETOLOGY METHOD 02/02/2025 1:[facility] Monocytes Absolute 0.22 0.20 - 1.00 K/mcL LAB HEMETOLOGY METHOD 02/02/2025 1:35 PM [facility] Eosinophils Absolute 0.08 0.00 - 0.50 K/mcL LAB HEMETOLOGY METHOD 02/02/2025 1:[facility] Basophils Absolute 0.03 0.00 - 0.20 K/mcL LAB HEMETOLOGY METHOD 02/02/2025 1:35 PM [facility] Immature Granulocytes Absolute 0.01 0.00 - 0.03 K/mcL LAB HEMETOLOGY METHOD 02/02/2025 1:35 PM [facility] Blood Venous blood specimen / Unknown Venipuncture / Unknown 02/02/2025 12:17 PM EDT 02/02/2025 12:17 PM EDT Fredrick STEVEN LAB BLOOD ORDERABLES Final Res ult Performing Organization Address [facility]/ZIP Co de Phone Number [facility] [address] [place] [address], [place] [phone] * Borrelia burgdorferi antibody (02/02/2025 12:17 PM EDT) [facility] Lyme Ab Negative Negative LAB CHEMISTRY METHOD 02/02/2025 2:57 PM EDT [facility] Comment: No laboratory evidence of infection with B. burgdorferi (Lyme disease). Negative results may occur in patients recently infected (<=14 days) with B. burgdorferi. If recent infection is suspected, repeat testing on a new sample collected in 7- 14 days is recommended. Blood Venous blood specimen / Unknown Venipuncture / Unknown 02/02/2025 12:17 PM EDT 02/02/2025 12:17 PM EDT Millicent Chapa MD LAB BLOOD ORDERABL ES Final Result Performing Organization Address [facility] Co de Phone Number [facility] [address] [place] [address], [place] [phone] * (ABNORMAL) Rheumatoid factor (02/02/2025 12:17 PM EDT) [facility] Rheumatoid Factor 24.0(H) <15.0 I Unit/mL LAB CHEMISTRY METHOD 02/02/2025 8:55 PM EDT [facility] Blood Venous blood specimen / Unknown Venipuncture / Unknown 02/02/2025 12:17 PM EDT 02/02/2025 12:17 PM EDT Millicent Chapa MD LAB BLOOD ORDERABL ES Final Result Performing Organization Address City/[facility]/ZIP Co de Phone Number [facility] [address] [place] [address], [place] [phone] * (ABNORMAL) C-reactive protein (02/02/2025 12:17 PM EDT) C-Reactive Protein 2.46(H) <=0.50 mg/dL LAB CHEMISTRY METHOD 02/02/2025 8:55 PM EDT [facility] Blood Venous blood specimen / Unknown Venipuncture / Unknown 02/02/2025 12:17 PM EDT 02/02/2025 12:17 PM EDT Millicent Chapa MD LAB BLOOD ORDERABL ES Final Result [facility] [address] [place] [address], [place] [phone] * External Xray Report (11/27/2024) Anatomical Region Laterality Modality Radiographic Kaia ging us Provider [facility] XR PROCEDURES Final Result * External Ultrasound Report (11/27/2024) Only the most recent of2 resultswithin the time period is included. Anatomical Region Laterality Modality Ultrasound us Provider [facility] US PROCEDURES Final Result * DXA BONE DENSITY STUDY 1+ SITS AXIAL SKEL (07/06/2022 11:16 AM EST) Anatomical Region Laterality Modality Bone Densitometr y 05/01/2022 4:53 PM EST Narrative 07/06/2022 3:40 PM EST BONE DENSITY (DEXA) Lumbar Spine T-score is -2.5. (SD relative to 20-29 y/o adult) Z-score is -0.9. (SD relative to age matched peers) This is considered osteoporosis by WHO criteria. Left Hip T-score is -3.8. Z-score is -2.4. This is considered osteoporosis by WHO criteria. IMPRESSION: This patient's considered to have osteoporosis by WHO criteria. The [facility] Department of Internal Medicine recommends using National [...] alternative screening schedule based on jana Mahmood., [facility] June 18, 2011 for patients with [...] to have osteoporosis by WHO criteria. The [facility] Department of Internal Medicine recommendsusing National Osteoporosis [...] alternative screening schedule based on [facility]., [facility] for patients with osteopenia (based on hip BMD T-score) is as follows: * advanced osteopenia (T scores -2.00 to -2.49), BMD testing every year * moderate osteopenia (T scores -1.50 to -1.99), BMD testing every 5years mild osteopenia or normal BMD (T scores -1.50 and higher), BMD testingevery 15 years Millicent Chapa MD IM DXA PROCEDURES Final Result * Hepatitis C Screening (04/03/2019) [facility] Hepatitis C Screening abstracted Result [facility] Final Result * Pap Smear (12/29/2017) [facility] Pap smear abstracted, no interpretation Result [facility] [employer] Final Result * Colonoscopy (10/26/2014) [facility] Colonoscopy abstracted, no interpretation Anatomical Region Laterality Modality Other Result [facility] [employer] Final Result from Last 3 Months or Most Recently Relevant to Health Maintenance Insurance [facility] MEDICARE Care Teams Fuel Oil Truck Driver Relationship Specialty Start Date End Date Millicent Chapa MD [address] [place] [id number] PCP - General 07/21/06
--- OUTSIDE RECORDS SUMMARY | 2025-02-09 09:04 | XMS_ITS | Clinical Summary ---
Author Organization [facility] Address [address] [place] [id number] Care Team Providers Care Dust Collector Name Role Phone Millicent Chapa MD Primary [...] Next Due Influenza-cciiv4, Im (>=4 Yrs) 04/14/2021 Factorli Cov-2 Vaccination 03/27/2021 MMR 02/18/2017 MMRV 02/18/2017 [...] Maintenance Due Date Last Done Comments PNEUMOCOCCAL POLYSACCHARIDE VACCINE AGE 65 AND OVER COVID-19 Vaccine ( season) 2025 INFLUENZA VACCINE 01/29/2025 Insurance [employer] OTHER [place] [address] [place] Sand 9 [facility] OTHER [employer] [facility] OTHER [employer] OTHER [employer] OTHER [employer] OTHER [employer] OTHER [employer] OTHER [employer] OTHER [employer] [facility] OTHER Wowo [facility] OTHER [employer] OTHER [employer] OTHER [employer] OTHER Member Subscriber Plan / Payer (Ef fective 2023-Present) Name:Ruby Stack Relation to Subscriber:Self Name:ChungSnehal Ramseyjennifer Blankenship Payer ID:Not on file Type:Not on file Address: [place] [phone] [employer] OTHER [employer] OTHER [employer] OTHER [employer] OTHER [employer] OTHER Member Subscriber Plan / Payer ( fective 2023-Present) Name:Ruby Stack Relation to Subscriber:Self Name:Ruby Stack Payer ID:Not on file Type:Not on file Address: [address] [place] Sand 9 [facility] OTHER [employer] [facility] OTHER [employer] OTHER [employer] OTHER [employer] OTHER [employer] OTHER [employer] OTHER [employer] OTHER [employer] OTHER [employer] OTHER [employer] OTHER [address] [place] [address] [facility] OTHER [employer] OTHER [employer] OTHER [employer] OTHER [employer] OTHER [employer] OTHER [facility] [employer] OTHER [employer] OTHER [employer] OTHER [employer] OTHER [employer] OTHER Member Subscriber Plan / Payer (Ef fective 2023-Present) Name:Ruby Stack Relation to Subscriber:Self Name:Ruby Stack Payer ID:Not on file Type:Not on file Address: [place] [phone] [address] [place] [employer] OTHER [employer] OTHER [employer] OTHER [employer] OTHER [employer] OTHER [employer] OTHER [employer] OTHER Member Subscriber Plan / Payer ( fective 2023-Present) Name:Ruby Stack Relation to Subscriber:Self Name:Ruby Stack Payer ID:Not on file Type:Not on file Address: [place] [phone] [employer] OTHER Member Subscriber Plan / Payer ( fective 2023-Present) Name:Ruby Stack Relation to Subscriber:Self Name:Ruby Stack Payer ID:Not on file Type:Not on file Address: [address] [employer] OTHER [employer] OTHER Member Subscriber Plan / Payer ( fective 2023-Present) Name:Ruby Stack Pattie Relation to Subscriber:Self Name:Ruby Stack Payer ID:Not on file Type:Not on file Address: [place] [phone] [address] 9 [facility] OTHER [address] [place] Sand 9 [facility] OTHER [employer] OTHER [employer] OTHER [employer] OTHER [employer] OTHER [employer] OTHER Member Subscriber Plan / Payer ( fective 2023-Present) Name:Ruby Stack Relation to Subscriber:Self Name:Ruby Stack Payer ID:Not on file Type:Not on file Address: [place] [phone] [employer] OTHER [employer] OTHER [employer] OTHER Sand 9 [facility] OTHER [place] [address] [place] [address] [facility] OTHER [employer] OTHER [employer] OTHER [employer] OTHER [employer] OTHER [employer] OTHER Member Subscriber Plan / Payer (Ef fective 2023-Present) Name:Ruby Stack Relation to Subscriber:Self Name:Ruby Stack Payer ID:Not on file Type:Not on file Address: [place] [phone] [employer] OTHER [employer] [place] OTHER [address] [place] Sand 9 [facility] OTHER Sand 9 [facility] OTHER [address] [place] [phone] [facility] Sand 9 [facility] OTHER [employer] OTHER [employer] OTHER [employer] OTHER [employer] OTHER [employer] OTHER [employer] BL[employer] OTHER [place] [place] OTHER [employer] OTHER Sand 9 [facility] OTHER [employer] OTHER [employer] OTHER [employer] OTHER [employer] OTHER [employer] OTHER E[employer] OTHER [employer] OTHER [employer] OTHER Sand 9 [facility] OTHER [employer] OTHER [employer] OTHER [employer] OTHER [employer] OTHER [employer] OTHER [place]UE [place] OTHER E[employer] OTHER [employer]UE [employer] OTHER [employer] OTHER [employer] OTHER [employer] OTHER [employer] OTHER [employer] OTHER [employer] OTHER [employer] OTHER [employer] OTHER E[employer] OTHER [employer] OTHER [address] [place] [employer] OTHER [employer] OTHER [employer] OTHER [employer] OTHER [employer] OTHER [address] [place] Sand 9 [facility] OTHER [address] [place] [phone] [facility] Sand 9 [facility] OTHER [employer] OTHER [employer] OTHER [employer] OTHER [employer] OTHER [employer] OTHER BLUE Val[employer] OTHER [employer] OTHER [employer] OTHER [employer] OTHER Sand 9 [facility] OTHER OTHER [employer] OTHER [employer] OTHER [employer] OTHER [employer] OTHER [employer] OTHER E[employer] BL[employer] OTHER [employer] OTHER [employer] OTHER [employer] OTHER OTHER [employer] OTHER [employer] OTHER [employer] OTHER BLUE Validas [employer] OTHER BLUE Validas [employer] OTHER BLUE [place]OSS BL[employer] OTHER [employer] OTHER [employer] OTHER [facility] OTHER OTHER OTHER [employer] OTHER [employer] OTHER [employer] OTHER [employer] OTHER [employer] OTHER [employer] OTHER Member Subscriber Plan / Payer (Ef fective 2023-Present) Name:Ruby Stack Relation to Subscriber:Self Name:Loyd FranksSnehalRubyjennifer Blankenship Payer ID:Not on file Type:Not on file Address: [address] [employer] OTHER [employer] OTHER [place]UE [place] OTHER OTHER [facility] Sand 9 [facility] OTHER [facility] OTHER Care Teams Dust Collector Relationship Specialty Start Date End Date Millicent Chapa MD [address] [place] [phone] PCP - General Internal Medicine 09/02/21
--- OUTSIDE RECORDS SUMMARY | 2025-02-09 09:04 | XMS_ITS | Encounter Summary ---
Author Organization [facility] Address [address] [place] [address] Phone Care Team Providers Care Government Guard Name Role Phone Millicent Chapa MD Primary Care Pr ovider Encounter Details Date Type Department Care Team (Late st Contact Info) Description 02/02/2025 Orders Only [facility] [place] of [place]edic Surgery, Foot & Ankle Service [address] [facility], [address] [place] [address] Isidro Vergara MD [address] [facility] [address], [facility] [place] [address] [email or web address] Social History Tobacco Use Types Packs/Day Years [...] high school, GED, job training, learning the Sudanese language, technical skills, or developing parenting skills)? [...] Info) Description 02/12/2025 10:45 AM EDT Telemedicine [facility] [place] [facility] [address] [facility], [address] [place] [address] Ashwin Tate MD [address] [place] [phone] [email or web address] 06/05/2025 11:30 AM EST Office Visit [facility] [place] [facility] [address] [facility], [address] [place] [address] Ashwin Tate MD [address] [place] [address] [email or web address] documented as of this encounter Visit Diagnoses Not on filedocumented in this encounter Care Teams Government Guard Relationship Specialty Start Date End Date Millicent Chapa MD [address] [place] [id number] PCP - General Internal Medicine 05/18/24 documented as of this encounter Additional Source Comments The information contained in this document represents components of the legal health record. It is not the complete legal health record.[facility]
--- OUTSIDE RECORDS SUMMARY | 2025-02-09 09:04 | XMS_ITS | Encounter Summary ---
Author Organization [facility] Address [address] [address] [facility] [address] [place] [address] Phone Care Team Providers Care Mold Inspector Name Role Phone Millicent Chapa MD Primary Care Pr ovider Encounter Details Date Type Department Care Team (Late st Contact Info) Description 10/02/2024 Procedure Pass [facility], [address] [address] Social History Tobacco Use Types Packs/Day Years Used Date Smoking Tobacco: Never Education Answer Date Recorded Are you interested in more education? Not on rosalind e 09/27/2022 Are you concerned about learning? Not on file 09/27/2022 No 09/27/2022 No 09/27/2022 Digital Access Answer Date Recorded No 10/25/2022 No 10/25/2022 No 10/25/2022 Reliable internet access at home? Not on file 10/25/2022 Device with a working camera? Not on file Comments Unknown Sex and Gender Information Value Date Recorded Sex Assigned at Not on file Legal Sex Female 5:11 PM EST Gender Identity Not on file Sexual Orientation Not on file documented as of this encounter Plan of Treatment Upcoming Encounters Date Type Department Care Team (Late st Contact Info) Description 02/12/2025 10:45 AM EDT Telemedicine [facility] [place] at [facility] [address] [facility], [address] [place] [address] Ashwin Tate MD [address] [place] [phone] [email or web address] 06/05/2025 11:30 AM EST Office Visit [facility] [place] at [facility] [address] [facility], [address] [place] [address] Ashwin Tate MD [address] [place] [address] [email or web address] documented as of this encounter Visit Diagnoses Not on filedocumented in this encounter Care Teams Mold Inspector Relationship Specialty Start Date End Date Millicent Chapa MD [address] [place] [phone] PCP - General Internal Medicine 05/18/24 documented as of this encounter Additional Source Comments The information contained in this document represents components of the legal health record. It is not the complete legal health record.[facility]
--- OUTSIDE RECORDS SUMMARY | 2025-02-09 09:04 | XMS_ITS | Encounter Summary ---
Author Organization [facility] Address [address] [place] [address] Phone Care Team Providers Care B2B Sales Executive Name Role Phone Millicent Chapa MD Primary Care Pr ovider Encounter Details Date Type Department Care Team (Late st Contact Info) Description 11/10/2024 Procedure Pass [facility] PERIOPERATIVE DEPT [address] [place] [address] Social History Tobacco Use Types Packs/Day Years [...] high school, GED, job training, learning the Upper Sorbian language, technical skills, or developing parenting skills)? [...] your housing situation today? I have tano fowler 10/31/2024 How many times have you move [...] Info) Description 02/12/2025 10:45 AM EDT Telemedicine [facility] Neurosurgery at [facility] [address] [facility], [address] [place] [address] Ashwin Tate MD [address] [address] [email or web address] 06/05/2025 11:30 AM EST Office Visit [facility] Neurosurgery at [facility] [address] [facility], [address] [place] [address] Ashwin Tate MD [address] [place] [address] [email or web address] documented as of this encounter Visit Diagnoses Not on filedocumented in this encounter Care Teams B2B Sales Executive Relationship Specialty Start Date End Date Millicent Chapa MD [address] [place] [phone] PCP - General Internal Medicine 05/18/24 documented as of this encounter Additional Source Comments The information contained in this document represents components of the legal health record. It is not the complete legal health record.[facility]
[2025-02-09 10:00] VITALS: BP 110/63; PULSE 70; RESP 15; TEMP 36.9; O2SAT 100
[2025-02-09 12:00] VITALS: BP 123/66; PULSE 67; RESP 15; TEMP 36.9; O2SAT 100
[2025-02-09 14:00] VITALS: BP 112/71; PULSE 65; RESP 15; TEMP 36.8; O2SAT 100
[2025-02-09 15:21] VITALS: BP 112/71; PULSE 65; RESP 15; TEMP 36.8; O2SAT 100
== END 2025-02-09 15:29 | disposition home or self-care (01) ==
PROVIDERS: Emergency Provider Emergency Medicine; PCP Internal Medicine
DX: G62.9 Polyneuropathy, unspecified (principal); R60.0 Localized edema; M25.562 Pain in left knee; Z79.899 Other long term (current) drug therapy
CPT/HCPCS: 73564; 93971; 96372; 96374; 99283; 99284; J1171

== ENCOUNTER → 2025-02-09 11:25 | Outpatient (BNV) | payer MEDICARE, SELFPAY | PROVIDERS: Emergency Provider Emergency Medicine; PCP Internal Medicine; Visit Provider Radiology Diagnostic Radiology | DX: M85.862 Other specified disorders of bone density and structure, left lower leg (principal) | CPT/HCPCS: 73564; 93971 ==

== ENCOUNTER 2025-03-05 19:13 | Emergency (ER) | payer MEDICARE, SELFPAY ==
--- OUTSIDE RECORDS SUMMARY | 2025-02-27 07:39 | XMS_ITS | Encounter Summary ---
Author Organization [facility] Address [address] [place] [address] Phone Care Team Providers Care Glazier Stained Glass Name Role Phone Millicent Chapa MD Primary Care Pr ovider Reason for Visit * Auth/Cert (Routine) Specialty Diagnoses / Procedures Referred By Conted t Referred To Contact Diagnoses Left knee pain Referral ID Status Reason Start Date Expiration Date Visits Re quested Visits Authorized [id number] 1 1 Encounter Details Date Type Department Care Team (Latest Contact Info) Description 02/27/2025 7:39 AM EDT - 02/27/2025 11:59 PM EDT Hospital Encounter [facility] Center for [facility] Medicine [address], [address] [place] [address] Jorge Benjamin MD [address] [place], [place] [id number] [place] [address] [email or web address] Discharge Disposition: Home or Self Care Social History Tobacco Use Types Packs/Day Years [...] high school, GED, job training, learning the Vietnamese language, technical skills, or developing parenting skills)? No 10/31/2024 Are you concerned about learning? Not on file 10/31/2024 No 10/31/2024 Yes 10/31/2024 Food Answer Date Recorded Within the past 6 months we worried whether our food would run out before we got money to buy more. Never True 02/25/2025 Within the past 6 months the food we bought just didn't last and we didn't have enough money to get more. Never True Residential Stability Answer Date Recor ded What is your housing situation today? I have tano sing 02/25/2025 How many times have you move d in the past 12 months? Zero (I did not move) 02/25/2025 Paying for Meds Answer Date Recorded Do you have trouble paying for medicines? No 02/25/2025 Paying Utility Bills Answer Date Record ed Do you have trouble paying your heating or elect ricity bill? No 02/25/2025 Transportation Answer Date Recorded Has the lack of transportati on kept you from medical appointments or from getting medications? No 02/25/2025 Digital Access Answer Date Recorded No 02/25/2025 Yes 02/25/2025 Do you have reliable internet access at home? Ye s 02/25/2025 Do you have a device (e.g., phone, tablet, computer) with a working camera? Yes 02/25/2025 Intimate Partner Violence Answer Date R ecorded Are you denied basic needs s uch as food, clothing, or medical care? Deferred 02/24/2025 In the past 12 months have y ou been in a relationship with a person who hurts, threatens, or tries to control you? Deferred 02/24/2025 Are you denied basic needs s uch as food, clothing, or medical care? Deferred 02/24/2025 In the past 12 months have y ou been in a relationship with a person who hurts, threatens, or tries to control you? Deferred 02/24/2025 Comments No Sex and Gender Information Value Date Recorded Sex Assigned at Not on file Legal Sex Female 5:11 PM EST Gender Identity Not on file Sexual Orientation Not on file documented as of this encounter Medications at Time of Discharge acetaminophen (TYLENOL) 500 MG tablet Take 1,000 mg by mouth every 6 (six) hours as needed. HYDROmorphone (DILAUDID) 2 MG tablet Take 1-2 tablets (2-4 mg total) by mouth every 6 (six) hours as needed for pain (specific location in comments). 12 tablet 11/10/2024 ibuprofen (ADVIL,MOTRIN) 600 MG tablet Take 600 mg by mouth every 6 (six) hours as needed for pain (specific location in comments). LORazepam (ATIVAN) 0.5 MG tablet Take 0.5 mg by mouth 2 (two) times a day. ondansetron (ZOFRAN-ODT) 4 MG disintegrating tablet Take 4 mg by mouth every 8 (eight) hours as needed for nausea. For nausea r/t Dilaudid documented as of this encounter Progress Notes * Linsey Jasso MD - 02/27/2025 4:00 PM EDT Images from the original note were not included. [facility] Chronic Pain New Outpatient Consult Patient: Ruby Tarango Date: 02/27/2025 Referring service: ED PCP: Millicent Chapa MD Consultation Reason and Chief Complaint: Pain Presenting Pain History: ?Ms. Ruby Tarango is a 64 y.o. 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 Tate, 11/10/24) who presents with 2-3 weeks severe left lateral knee pain. Dr. Tate would like to obtain an U/S of the peroneal and sural nerve as well as a L knee MRI. The U/S is scheduled for tomorrow and her MRI is pending scheduling. She has a telemedicine follow-up appointment with Dr. Tate on Wednesday after the imaging is obtained to discuss repeat surgical intervention. History of Present Illness Ruby Tarango is a 64 year old female with a history of knee pain and prior tibial plateau fracture who presents for pain management and follow-up on nerve studies. She was referred by Dr. Tate from neurosurgery for further evaluation of her knee and nerve pain. She experiences ongoing severe pain at the peroneal nerve at the fibular head, which is exacerbatedby pressure. She has a history of a tibial plateau fracture and previous surgery that initially improved her left lateral knee pain significantly. However, she notes a recurrence of pain without any recent trauma or fall. She is currently on a prednisone taper and low-dose hydromorphone for pain management. Her pain is somewhat less than it was during a recent emergency room visit, where she was given a higher dose ofhydromorphone that she found excessive. She is now taking one pill three times a day, which she feels is more manageable. She mentions a past fall in 2020 that resulted in pre-patella demineralization, but states that this was not the cause of her current issues. 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 She is scheduled for a repeat peroneal nerve ultrasound and a sural nerve ultrasound, as well as anMRI of the knee to assess for any structural issues that may be affecting the nerves. Recent evaluation in ED: Ms. Ruby Tarango is a 64 y.o. 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 Tate, 11/10/24) who presents with 2-3 weeks severe left lateral knee pain. She was evaluated by Neurosurgery, who recommended an X-ray and orthopedic surgery consultation. The X-ray demonstrated an age-indeterminate lateral tibial plateau fracture, for which Orthopedic Surgery was consulted. Orthopedic Surgery evaluated the patient and recommended outpatient follow-up forheel pain and numbness. On our evaluation, the patient reports that the pain that brought her to the ED is localized to her lateral and posterolateral left knee. She describes it as a tight, nerve pain sensation, like a tourniquet around the knee in the described distribution. The pain was initially 8/10 but improved to 5-6/10 after receiving hydromorphone. She also notes numbness and tingling in the same area. Additionally, she endorses left lateral and posterior ankle pain and tightness. External Notes Reviewed: Internal Medicine; Neurosurgery Diagnostic Imaging/Labs Reviewed: CT Knee ? Social History Social History Narrative Not on file ? Physical Exam: ? Vitals: There were no vitals taken for this visit. There were no vitals filed for this visit. Imaging: - 02/24/25 CT Knee Mild cortical deformity of the lateral tibial plateau, consistent with age- indeterminate but likelychronic insufficiency fracture. Discussed with patient as part of shared decision-making. ? Assessment: Ruby Tarango is a 64 y.o. 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 Tate, 11/10/24)who presents with 2- 3 weeks severe left lateral knee pain. Her symptoms certainly seem to have a neuropathic nature. Fortunately, she was recently evaluated by the neurosurgery team who had ordered relevant imaging to try to elucidate a potential etiology ofher symptoms. We will follow along to help support as necessary. We engaged in a detailed discussion regarding diagnostic and therapeutic strategies. The patient demonstrated good understanding and participated in shared decision-making. Treatment options were discussed, including risks, benefits, and alternatives. ? Plan: ?1. Diagnostics: - US Lower Extremity scheduled tomorrow (02/28) ? 2. Pharmacology: - None Risks and benefits discussed in the context of current pain and comorbidities. 3. Procedures/Interventions: - Defer any injections pending ongoing work-up per surgical team Discussed goals and expected outcomes of intervention. The patient reports, on average, pain > 6/10 on a VAS scoring system. The patient has exhausted reasonable conservative therapy. The patient is continuing a structured home exercise program. The risks, consequences, alternatives, and benefits of various treatment options were discussed with the patient in detail. Anticoagulation: - Not on anticoagulation 4. Rehabilitation and Physical Therapy: - None 5. Follow-Up - As needed I saw and examined Ms. Tarango and I have discussed the patient with Dr. Jasso. I agree with the overall findings, assessment, and plan as noted above. I have maintained a long-term and longitudinal relationship with the patient, overseeing the care of their chronic pain. This has significantly influenced my decision-making and treatment plans during today's encounter. For patients and families: Medical charts are meant for communication between medical team members and may contain terms that can be confusing or concerning without full context. Your physician or medical team is the best source for information about your condition. Jorge Benjamin MD Anesthesiologist and Chronic Pain Physician [facility] Department of Anesthesia, Critical Care, and Pain Medicine documented in this encounter Plan of Treatment Upcoming Encounters Date Type Department Care Team (Late st Contact Info) Description 06/05/2025 11:30 AM EST Office Visit [facility] Neurosurgery at [facility] [address] [facility], [address] [place] [address] Ashwin Tate MD [address] [place] [phone] [email or web address] Scheduled Referrals Name Type Priority Associated Diagnoses Order Schedule Ambulatory referral to [facility] - Fast Track Outpatient Referral Routine Ordered: 02/25/2025 documented as of this encounter Visit Diagnoses Diagnosis Neuropathic pain- Primary documented in this encounter Care Teams Glazier Stained Glass Relationship Specialty Start Date End Date Millicent Chapa MD [address] [place] [phone] PCP - General Internal Medicine 05/18/24 documented as of this encounter Additional Source Comments The information contained in this document represents components of the legal health record. It is not the complete legal health record.[facility]
--- OUTSIDE RECORDS SUMMARY | 2025-02-28 12:31 | XMS_ITS | Encounter Summary ---
Author Organization [facility] Address [address] [place] [address] Phone Care Team Providers Care Gospel Singer Name Role Phone Millicent Chapa MD Primary Care Pr ovider Encounter Details Date Type Department Care Team (Latest Contact Info) Description 02/28/2025 12:31 PM EDT - 02/28/2025 11:59 PM EDT Hospital Encounter [facility], Ultrasound [address] [place] [address] Ashwin Tate MD [address] [place] [phone] [email or web address] Discharge Disposition: Home or Self Care Social [...] high school, GED, job training, learning the Anguillan language, technical skills, or developing parenting skills)? [...] r/t Dilaudid documented as of this encounter Plan of Treatment Upcoming Encounters Date Type Department Care Team (Late st Contact Info) Description 06/05/2025 11:30 AM EST Office Visit [facility] Neurosurgery at [employer] [facility] [address] [facility], [address] [place] [address] Ashwin Tate MD [address] [place] [phone] [email or web address] documented as of this encounter Procedures Procedure Name Priority Date/Time Associated Diagnosis Comments US LOWER EXTREMITY NON-VASCULAR LIMITED (LEFT) Routine 02/28/2025 3:02 PM EDT Disorder of sural nerve documented in this encounter Results * US LOWER EXTREMITY NON-VASCULAR LIMITED (LEFT) (02/28/2025 3:02 PM EDT) Anatomical Region Laterality Modality Hip Left, Thigh Left, Knee L eft, Leg Left, Ankle Left, Foot Left Ultrasound 02/28/2025 2:26 PM EDT Impressions 02/28/2025 4:36 PM EDT Ultrasound shows no focal abnormality or extrinsic compression over the sural nerve, medial sural calcaneus nerve, or central communicating branch. ATTESTATION: I, Dr. Marshall Arceo as teaching physician, have reviewed the images for this case and if necessary edited the report originally created by Dr. Jesus Alberto Viera. Narrative 02/28/2025 4:36 PM EDT US LOWER EXTREMITY NON-VASCULAR (LEFT) Referring clinician's provided indication for this examination in Epic: Pain; please examine left sural nerve TECHNIQUE: Ultrasound of the left lower leg. COMPARISON: US LOWER EXTREMITY NON-VASCULAR LIMITED (LEFT) FINDINGS: Heterogeneous echogenicity of the soft tissues near the fibular head, in keeping with reported surgical procedure. Proximally, the deep and superficial peroneal nerves are seen branching at the fibular head, showing normal appearance. The lateral sural cutaneous nerve and communicating branches are difficult to fully evaluate given the degree of background muscular atrophy, however there appears to be no extrinsic compression or gross nerve thickening along the path. Sonographic interrogation of this area reproduced local symptoms of pain at the probe site and in the lower leg. The distal sural nerve from the level of the mid calf to the level of the ankle appears of normal caliber without external compression. Procedure Note Marshall Murphy MD - 02/28/2025 US LOWER EXTREMITY NON-VASCULAR (LEFT) Referring clinician's provided indication for this examination in Epic:Pain; please examine left sural nerve TECHNIQUE: Ultrasound of the left lower leg. COMPARISON: US LOWER EXTREMITY NON-VASCULAR LIMITED (LEFT) FINDINGS: Heterogeneous echogenicity of the soft tissues near the fibular head, inkeeping with reported surgical procedure. Proximally, the deep and superficial peroneal nerves are seen branching atthe fibular head, showing normal appearance. The lateral sural cutaneous nerve and communicating branches are difficultto fully evaluate given the degree of background muscular atrophy, howeverthere appears to be no extrinsic compression or gross nerve thickeningalong the path. Sonographic interrogation of this area reproduced localsymptoms of pain at the probe site and in the lower leg. The distal sural nerve from the level of the mid calf to the level of theankle appears of normal caliber without external compression. IMPRESSION: Ultrasound shows no focal abnormality or extrinsic compression over thesural nerve, medial sural calcaneus nerve, or central communicatingbranch. ATTESTATION: I, Dr. Marshall Arceo as teaching physician, have reviewedthe images for this case and if necessary edited the report originallycreated by Dr. Jesus Alberto Viera. us Ashwin Tate MD IMG US EXTREMITY Final Result documented in this encounter Visit Diagnoses Diagnosis Disorder of sural nerve documented in this encounter Care Teams Gospel Singer Relationship Specialty Start Date End Date Millicent Chapa MD [address] [place] [phone] PCP - General Internal Medicine 05/18/24 documented as of this encounter Additional Source Comments The information contained in this document represents components of the legal health record. It is not the complete legal health record.[facility]
--- OUTSIDE RECORDS SUMMARY | 2025-03-01 14:30 | XMS_ITS | Encounter Summary ---
Author Organization [facility] Address [address] [place] [address] Phone Care Team Providers Care Manager Collection Name Role Phone Millicent Chapa MD Primary Care Pr ovider Encounter Details Date Type Department Care Team (Latest Contact Info) Description 03/01/2025 2:30 PM EDT Telemedicine - audio only [facility] at [facility] [address] [facility], [address] [place] [address] Ashwin Tate MD [address] [place] [phone] [email or web address] Arrived Social History Tobacco Use Types Packs/Day Years [...] high school, GED, job training, learning the Burmese language, technical skills, or developing parenting skills)? [...] Description 06/05/2025 11:30 AM EST Office Visit [facility] at [facility] [address] [facility], [address] [place] [address] Ashwin Tate MD [address] [place] [phone] [email or web address] documented as of this encounter Visit Diagnoses Not on filedocumented in this encounter Care Teams Manager Collection Relationship Specialty Start Date End Date Millicent Chapa MD [address] [place] [phone] PCP - General Internal Medicine 05/18/24 documented as of this encounter Additional Source Comments The information contained in this document represents components of the legal health record. It is not the complete legal health record.[facility]
--- NOTE | 2025-03-05 | ECG_ITS ---
Test Reason : cp Blood Pressure : */* mmHG Vent. Rate : 85 BPM Atrial Rate : 85 BPM P-R Int : 180 ms QRS Dur : 132 ms QT Int : 380 ms P-R-T Axes : 77 -25 80 degrees QTcB Int : 452 ms Normal sinus rhythm Left bundle branch block Abnormal ECG When compared with ECG of 27-Nov-2024 20:04, No significant change was found Referred By: Generic ED Physician Electronically Signed By: OLY MCKEON MD
--- NOTE | ~2025-03-05 | XR_ITS ---
CLINICAL HISTORY: Chest pain Single view of the chest. COMPARISON: XR chest dated 11/27/24 at 22:12 EDT FINDINGS: Normal heart and mediastinal contours. No consolidation. No pleural effusion or pneumothorax. No fracture identified. IMPRESSION: 1. No consolidation. This document has been electronically signed by: Dominik Duncan MD on 03/05/2025 20:16:15
[2025-03-05 19:29] VITALS: BP 132/79; PULSE 90; RESP 18; TEMP 36.8; O2SAT 97; BMI 18.9
--- NOTE | 2025-03-05 19:31 | ED.GENADULT ---
HPI - General Adult General Chief complaint: Chest Pain Stated complaint: CP Time Seen by Provider: 03/05/25 21:13 Source: patient, family (), RN notes reviewed and old records reviewed Mode of arrival: wheelchair Limitations: no limitations History of Present Illness ED Provider: Dr. Asya Reeder HPI narrative: 63-year-old female with a history of complex regional pain syndrome in the left lower extremity, asthma, Raynaud's disease presenting with chest pain and shortness of breath that have been ongoing for the last 10 days or so. Patient admits that she has been rather sedentary lately with difficulty ambulating due to her chronic lower extremity pain. Has been hospitalized at [facility] for this reason in the last 3 weeks. Admits that she developed some dyspnea on exertion that has been worsening over the last 10 days to the point where she felt that she should come to the emergency department for evaluation today. Describes chest pressure that is worse with exertion as well. Denies associated fevers or chills, cough or cold-type symptoms, nausea, vomiting, bowel changes or urinary complaints. Her lower extremity pain and edema is intermittent and severe at times. She feels the swelling is somewhat worse than usual. She has been on a prednisone taper for her leg pain for the last 3 weeks. She is down to 5 mg at this point. No history of blood clots. She does not take blood thinners. Related Data Home Medications ?Medication ?Instructions ?Recorded ?Confirmed albuterol sulfate 90 mcg/actuation 2 puff inhalation Q4-6H PRN 04/07/22 01/14/25 aerosol inhaler SOB/Wheezing hydromorphone 2 mg tablet 2 mg PO TID 09/08/24 01/14/25 lidocaine 5 % topical patch 1 patch topical DAILY 09/08/24 01/14/25 acetaminophen 500 mg capsule 1,000 mg PO Q6H PRN 01/11/25 01/14/25 hydromorphone 2 mg tablet 2 mg PO Q6H 01/11/25 01/14/25 pregabalin 25 mg capsule 25 mg PO DAILY 01/11/25 01/14/25 pregabalin 50 mg capsule 50 mg PO BEDTIME 01/11/25 01/14/25 Previous Rx's ?Medication ?Instructions ?Recorded acetaminophen 650 mg/20.3 mL oral 650 mg (20.3 mL) PO Q4H PRN 02/01/24 solution moderate pain #0 mL lorazepam 0.5 mg tablet (Ativan) 0.5 mg PO TID PRN anxiety #7 tabs 02/01/24 polyethylene glycol 3350 17 gram 17 g PO DAILY PRN constipation #0 02/01/24 oral powder packet ea ondansetron 4 mg disintegrating 4 mg PO Q8H PRN nausea and 07/13/24 tablet vomiting #7 tabs diclofenac sodium 1 % topical gel 4 g topical QID 30 days #100 grams 01/24/25 (Arthritis Pain (diclofenac)) prednisone 20 mg tablet 40 mg (2 x 20 mg) PO DAILY 5 days 02/09/25 #10 tabs Allergies Allergy/AdvReac Type Severity Reaction Status Date / Time gluten (Gluten) Allergy Severe PT HAS Verified 03/05/25 19:32 CELIAC DISEASE morphine Allergy Severe itching/ashok Verified 03/05/25 19:32 h Sulfa (Sulfonamide Allergy Severe LUPUS-LIKE Verified 03/05/25 19:32 Antibiotics) benztropine (Cogentin) Allergy Intermediate Rash Verified 03/05/25 19:32 ciprofloxacin (From Cipro) Allergy Intermediate TENDONOPATH Verified 03/05/25 19:32 Y/NEUROPATH Y shellfish derived Allergy Intermediate Hives Verified 03/05/25 19:32 promethazine Allergy Unknown Unknown Verified 03/05/25 19:32 nitrofurantoin (From AdvReac Severe Drug Verified 03/05/25 19:32 Macrodantin) induced Hep prochlorperazine (From AdvReac Unknown Verified 03/05/25 19:32 Compazine) Mandelamine Allergy Intermediate Drug Uncoded 03/05/25 19:32 induced Hep QUINOLONES Allergy Intermediate Unknown Uncoded 03/05/25 19:32 tramadol AdvReac Severe hand/feet Uncoded 03/05/25 19:32 buzzing Review of Systems Review of Systems: As per HPI, full review of systems performed and negative but for the above mentioned pertinent positives and negatives. 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 Methotrexate, bed bug exterminator, current use Undifferentiated connective tissue disease Rheumatoid factor positive Post-COVID chronic cough Neuropathy Asthma Diverticulosis Kidney stone Celiac sprue Surgical History History of surgery on lower extremity H/O cystoscopy S/P cardiac cath (~07/2020) Hx of excision of mass (~1999) Family History Family History Mother Cervical cancer Uterine cancer History of thyroid disorder Maternal Grandmother Diabetes Stroke Maternal Grandfather Diabetes Coronary artery disease Paternal Grandmother Uterine cancer Diabetes Stroke Paternal Grandfather Stroke Father Bladder cancer Social History Social History Household Members: Spouse Household Members Other:: Son Alcohol intake: never Patient Tobacco Use Status: Never used Tobacco Smoked in Last 30 Days: No Use of substances other than those prescribed or required for medical reasons: No Advance Directives: Yes Advance Directives on File: Yes Advance Directives Date on File: 04/27/22 service: No 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 SKIN: Normal skin color for ethnicity, warm, dry, intact, no rashes noted. HEENT: Normocephalic, atraumatic, no stridor, posterior oropharynx nonerythematous, dentition intact, EOMI. NECK: Soft, supple, full ROM, midline structures nontender, no step-offs, no deformities, no lymphadenopathy. CHEST: Heart regular tachycardia, no murmurs, symmetric chest rise and fall, no crepitus. PULMONARY: Clear to auscultation bilaterally, no labored breathing, no wheezes/rhales/ rhonchi. ABDOMINAL: Soft, nondistended, nontender, positive bowel sounds in all quadrants. : Deferred. MUSCULOSKELETAL: Normal tone, no deformities, minimal edema in the left lower extremity from the knee to the foot, neurovascularly intact distally, limited range of motion secondary to pain. NEURO: Alert and oriented x3, CN II through XII intact, equal strength and sensation bilateral upper and lower extremities, no focal neurologic deficits. PSYCHIATRIC: Anxious affect, tearful, fluid speech, good eye contact and appropriate demeanor. Vital Signs: Vital Signs - 24 hr 03/06/25 00:51 03/06/25 00:52 Temperature 97.9 F 97.9 F Pulse Rate 78 78 Respiratory Rate 16 16 Blood Pressure 99/60 99/60 Pulse Oximetry 95 95 Oxygen Delivery Method Room Air Room Air BMI result Body Mass Index 18.9 Course Course Course Narrative: RmE: 62 yold female presents tot he ED for chest pain. patient states chest pain since last teusday. patient aslo states chronic back leg pain. patient denies any fever or chills. patient states pmh of left bundle branch block. Labs EkG, chest xray ordered. Medications Administered Discontinued Medications Generic Name Dose Route Start Last Admin Trade Name Corwin PRN Reason Stop Dose Admin Diphenhydramine HCl 25 mg 03/05/25 22:07 03/05/25 22:39 Diphenhydramine Hcl 50 Mg/Ml Vial IVPUSH 03/05/25 22:08 25 mg ONCE ONE Administration Haloperidol Lactate 5 mg 03/05/25 22:07 03/05/25 22:39 Haloperidol Lactate 5 Mg/Ml Vial IVPUSH 03/05/25 22:08 5 mg STAT STA Administration Hydromorphone HCl 1 mg 03/05/25 22:07 03/05/25 22:40 Hydromorphone Hcl 1 Mg/Ml Syringe IVPUSH 03/05/25 22:08 1 mg ONCE ONE Administration Protocol Medical Decision Making Medical Decision Making [facility] Narrative: Patient presents today with a chief complaint of chest pain. Differential diagnosis includes, but is not limited to, acute coronary syndrome, musculoskeletal pain, pneumothorax, GERD, pleurisy, pulmonary embolism, dissection, among others. I will order EKG, chest x-ray, laboratory workup including cardiac enzymes to further evaluate for etiology. Patient significantly improved after haldol, dilaudid and benadryl IV. Workup is reassuring. This is a chronic issue for her. She has multiple specialists involved in her care through [facility] in [place]. Using shared decision making, plan for discharge home to follow-up with primary care and/or specialist.? Patient understands and agrees with plan for discharge.? Discharged home in stable condition. Differential Diagnosis Differential Diagnoses: The differential diagnosis associated with the presentation includes (as above) Admission/Observation Consideration of admission/observation: Escalation of care including admission/observation considered Lab Data [facility] Lab Attestation statement: I reviewed the patient's lab results. 03/05/25 19:55 03/05/25 19:55 Labs: Lab Results 03/05/25 Range/Units 19:55 WBC 7.0 (4.8-10.8) X10*3/uL RBC 3.87 L (4.20-5.50) X10*6/uL Hgb 11.4 L (12.0-16.0) g/dl Hct 35.1 L (37.0-47.0) % MCV 90.7 (80.0-98.0) fL MCH 29.5 (27.0-33.0) pg MCHC 32.5 (31.0-35.0) g/dl RDW 13.8 (11.0-16.0) % Plt Count 218 (160-400) X10*3/uL MPV 10.2 (9.4-12.3) fL Immature Gran % (Auto) 0.4 (0.0-0.4) % Neut % (Auto) 68.1 (45-73) % Lymph % (Auto) 22.0 (20-40) % [place] % (Auto) 8.1 (2-11) % Eos % (Auto) 1.0 (0-4) % Baso % (Auto) 0.4 (0-2) % Lymph # (Auto) 1.6 (1.2-4.9) X10*3/uL [place] # (Auto) 0.6 (0.1-1.2) X10*3/uL Eos # (Auto) 0.1 (0.0-0.4) X10*3/uL Baso # (Auto) 0.0 (0.0-0.2) X10*3/uL Abs Immat Gran (auto) 0.03 (0.00-0.03) X10*3/uL Absolute Neuts (auto) 4.8 (2.0-8.3) x10*3/uL Absolute Nucleated RBC 0.000 (0.0-0.012) X10*3/uL Nucleated RBC % (auto) 0.0 (0.0-0.2) /100WBC PT 10.0 L (10.9-12.4) SEC INR 0.9 (0.9-1.1) APTT 19.4 L (26.7-34.1) SEC D-Dimer High Sensitivty 195 NG/ML Sodium 143 (135-145) mmol/L Potassium 4.0 (3.3-5.1) mmol/L Chloride 107 (96-108) mmol/L Carbon Dioxide 29 (22-29) mmol/L Anion Gap 11 L (12-20) BUN 28 H (9-16) mg/dL Creatinine 0.68 (0.5-1.4) mg/dL Estim Creat Clear Calc 59.0 Estimated GFR > 60 Random Glucose 96 (60-115) mg/dL Calcium 9.3 (8.4-10.2) mg/dL Total Bilirubin 0.2 (0.0-1.0) mg/dL AST 18 (5-31) U/L ALT 14 (0-31) U/L Alkaline Phosphatase 45 (39-117) U/L Troponin I High Sens < 2.7 (<3.5-17.0) ng/L NT-Pro-B Natriuret Pep 81.1 (<300) pg/mL Total Protein 6.6 (6.5-8.0) g/dL Albumin 4.2 (3.5-5.0) g/dL Independent Interpretation I performed an independent interpretation of an: EKG Interpretation: My independent interpretation of the ECG reveals normal sinus rhythm with rate of 85, normal axis, left bundle branch block s, no ST elevations or depressions to suggest ischemic changes, relatively unchanged from previous on 11/27/2024. My independent interpretation of the chest x-ray reveals no consolidations, pulmonary edema, pleural effusion, pneumothorax, obvious bony abnormalities. Independent Historian Clinical information obtained from an independent historian. History obtained from or confirmed by: Spouse External Record Review External record reviewed: Inpatient record Chronic Conditions Patient?s care impacted by: Other (chronic pain syndrome) Discharge Plan Discharge Clinical Impression: Acute chest pain, Chronic lower limb pain Patient Disposition: Home, Self-Care Instructions: Chest Pain (ED) Additional Instructions: DIAGNOSIS & TREATMENT: You were seen in the Emergency Department for your chest discomfort. We performed an EKG, laboratory work and chest xray which did not reveal any acute abnormalities that would explain your symptoms. FURTHER CARE: We have not found any emergent physical exam or lab abnormalities that would require admission to the hospital today. Many people who come to the ER with chest discomfort do not leave with a specific diagnosis at the end of their visit. In the Emergency Department we try to make sure that there is no emergent problem that needs admission to the hospital or antibiotics right now. This does not mean that your evaluation is complete--please be sure to follow up with your regular doctor as additional testing as an outpatient may be indicated. Please be certain to drink plenty of fluids over the next several days. WHEN YOU SHOULD BE SEEN NEXT: Please follow-up with your primary care provider within the next 2-3 days for reevaluation of your symptoms. Keep your appointments with your providers at [facility]. WHEN TO RETURN TO THE ED: Monitor your symptoms closely and return to the emergency department immediately for any new/worsening symptoms including: Worsening chest pain, difficulty breathing, fevers greater than 100 degrees, passing out, any new symptom that concerns you. Call 911 with any medical emergency. Prescriptions: No Action diclofenac sodium [Arthritis Pain (diclofenac)] 1 % gel 4 g topical QID 30 Days Qty: 100 3RF Rx Instructions: apply to bilateral knee prednisone 20 mg tablet 40 mg PO DAILY 5 Days Qty: 10 0RF acetaminophen 650 mg/20.3 mL Solution 650 mg PO Q4H PRN (Reason: moderate pain) Qty: 0 0RF polyethylene glycol 3350 17 gram Powder In Packet 17 g PO DAILY PRN (Reason: constipation) Qty: 0 0RF lorazepam [Ativan] 0.5 mg tablet 0.5 mg PO TID PRN (Reason: anxiety) Qty: 7 0RF albuterol sulfate 90 mcg/actuation HFA aerosol inhaler 2 puff inhalation Q4-6H PRN (Reason: SOB/Wheezing) hydromorphone 2 mg tablet 2 mg PO Q6H pregabalin 25 mg capsule 25 mg PO DAILY acetaminophen 500 mg capsule 1,000 mg PO Q6H PRN pregabalin 50 mg capsule 50 mg PO BEDTIME ondansetron 4 mg tablet,disintegrating 4 mg PO Q8H PRN (Reason: nausea and vomiting) Qty: 7 0RF lidocaine 5 % adhesive patch,medicated 1 patch topical DAILY hydromorphone 2 mg tablet 2 mg PO TID Interventions: ED Discharge Assessment Last Done: 03/06/25 00:52 Discharge Date/Time: 03/06/25 01:15 Print Language: Tristanian
[2025-03-05 19:49] VITALS: BP 120/70; PULSE 80; RESP 14; O2SAT 97
--- OUTSIDE RECORDS SUMMARY | 2025-03-05 19:50 | XMS_ITS | Encounter Summary ---
Author Organization [facility] Address [address] [place] [address] Phone Care Team Providers Care Housing Inspector Name Role Phone Millicent Chapa MD Primary Care Pr ovider Encounter Details Date Type Department Care Team (Late st Contact Info) Description 02/24/2025 Procedure Pass [facility], [place] [address] [facility], [address] [place] [address] Social History Tobacco Use Types Packs/Day Years [...] high school, GED, job training, learning the Peruvian language, technical skills, or developing parenting skills)? [...] housing situation today? I have tano fowler 02/25/2025 How many times have you move [...] Description 06/05/2025 11:30 AM EST Office Visit [facility] [address] [facility], [address] [place] [address] Ashwin Tate MD [address] [place] [phone] [email or web address] documented as of this encounter Visit Diagnoses Not on filedocumented in this encounter Care Teams Housing Inspector Relationship Specialty Start Date End Date Millicent Chapa MD [address] [place] [phone] PCP - General Internal Medicine 05/18/24 documented as of this encounter Additional Source Comments The information contained in this document represents components of the legal health record. It is not the complete legal health record.[facility]
--- OUTSIDE RECORDS SUMMARY | 2025-03-05 19:50 | XMS_ITS | Encounter Summary ---
Author Organization [facility] Address [address] [place] [address] Care Team Providers Care Hospice Care Transitions Coordinator Name Role Phone Millicent Chapa MD Primary Care Prov ider Encounter Details Date Type Department Care Team (Late st Contact Info) Description 09/10/[address] [facility] at [address] [phone] Chilango Walsh MD [facility] [address] [place] [phone] Social History Tobacco Use Types Packs/Day [...] on filedocumented in this encounter Care Teams Hospice Care Transitions Coordinator Relationship Specialty Start Date End Date Millicent Chapa MD [address] [place] [phone] PCP - General Internal Medicine 09/02/21 documented as of this encounter
--- OUTSIDE RECORDS SUMMARY | 2025-03-05 19:50 | XMS_ITS | Encounter Summary ---
Author Organization [facility] Address [address] [place] [address] Phone Care Team Providers Care Canadian Bacon Tier Name Role Phone Millcient Chapa MD Primary Care Pr [facility] Encounter Details Date Type Department Care Team (Late st Contact Info) Description 10/02/2024 Procedure Pass [facility], [address] [address] Social History Tobacco Use Types Packs/Day Years [...] Description 06/05/2025 11:30 AM EST Office Visit [facility] at [facility] [address] [facility], [address] [place] [address] Ashwin Tate MD [address] [place] [phone] [email or web address] documented as of this encounter Visit Diagnoses Not on filedocumented in this encounter Care Teams Canadian Bacon Tier Relationship Specialty Start Date End Date Millicent Chapa MD [address] [place] [phone] PCP - General Internal Medicine 05/18/24 documented as of this encounter Additional Source Comments The information contained in this document represents components of the legal health record. It is not the complete legal health record.[facility]
--- OUTSIDE RECORDS SUMMARY | 2025-03-05 19:50 | XMS_ITS | Encounter Summary ---
Author Organization [facility] Address [address] [place] [address] Phone Care Team Providers Care Volleyball Assistant Coach Name Role Phone Millicent Chapa MD Primary Care Pr [facility] Encounter Details Date Type Department Care Team (Late st Contact Info) Description 11/10/2024 Procedure Pass [facility] PERIOPER[facility]IVE DEPT [address] [place] [address] Social History Tobacco Use Types [...] high school, GED, job training, learning the [place]ine[place] language, technical skills, or developing parenting skills)? [...] Description 06/05/2025 11:30 AM EST Office Visit [facility] Neurosurgery at [facility] [address] [facility], [address] [place] [address] Ashwin Tate MD [address] [place] [phone] [email or web address] documented as of this encounter Visit Diagnoses Not on filedocumented in this encounter Care Teams Volleyball Assistant Coach Relationship Specialty Start Date End Date Mililcent Chapa MD [address] [place] [phone] PCP - General Internal Medicine 05/18/24 documented as of this encounter Additional Source Comments The information contained in this document represents components of the legal health record. It is not the complete legal health record.[facility]
--- OUTSIDE RECORDS SUMMARY | 2025-03-05 19:50 | XMS_ITS | Clinical Summary ---
Author Organization [facility]. Address [address] [phone] Phone Care Team Providers Care Padding Machine Operator Name Role Phone Millicent Chapa [...] Due Influenza, MDCK, Quadrivalent, with preservative 04/14/2021 [employer] SARS-COV-2 03/27/2021 MMR 02/18/2017 MMRV 02/18/2017 PPD [...] patient's age to complete this topic Insurance [facility] Care Teams Padding Machine Operator Relationship Specialty Start Date End Date Millicent Chapa MD [facility] [place] [address] PCP - General Internal Medicine 08/22/24
--- OUTSIDE RECORDS SUMMARY | 2025-03-05 19:50 | XMS_ITS | Encounter Summary ---
Author Organization [facility] Address [address] [place] [address] Care Team Providers Care Resource Forester Name Role Phone Millicent Chapa MD Primary Care Prov ider Encounter Details Date Type Department Care Team (Late st Contact Info) Description 09/08/[address] [facility] at [address] [address] Chilango Walsh MD [facility] [address] [place] [phone] Social History Tobacco Use Types Packs/Day [...] on filedocumented in this encounter Care Teams Resource Forester Relationship Specialty Start Date End Date Millicent Chapa MD [address] [place] [phone] PCP - General Internal Medicine 09/02/21 documented as of this encounter
--- OUTSIDE RECORDS SUMMARY | 2025-03-05 19:50 | XMS_ITS | Clinical Summary ---
Author Organization [facility] Address [address] [place] [phone] Care Team Providers Care Compressor Station Chief Engineer Name Role Phone Millicent Chapa MD [...] Next Due Influenza-cciiv4, Im (>=4 Yrs) 04/14/2021 Ulabox Cov-2 Vaccination 03/27/2021 MMR 02/18/2017 MMRV 02/18/2017 [...] ( season) 2025 INFLUENZA VACCINE 01/29/2025 Insurance treadalong OTHER [employer] [place] [employer] [facility] OTHER [employer] [facility] OTHER treadalong OTHER treadalong OTHER treadalong OTHER treadalong OTHER treadalong OTHER treadalong OTHER [employer] [facility] OTHER [employer] [facility] OTHER treadalong OTHER treadalong OTHER treadalong OTHER Member Subscriber Plan / Payer (Ef fective 2023-Present) Name:Ruby Stack Relation to Subscriber:Self Name:ChungSnehal Ramseyjennifer Blankenship Payer ID:Not on file Type:Not on file Address: [place] [phone] [employer] OTHER [employer] OTHER treadalong OTHER treadalong OTHER treadalong OTHER treadalong OTHER Member Subscriber Plan / Payer ( fective 2023-Present) Name:Ruby Stack Relation to Subscriber:Self Name:Ruby Stack Payer ID:Not on file Type:Not on file Address: [address] [employer] [place] [employer] [facility] OTHER [employer] [facility] OTHER treadalong OTHER treadalong OTHER treadalong OTHER treadalong OTHER treadalong OTHER [employer] OTHER [employer] OTHER [employer] OTHER treadalong OTHER [employer] [place] [employer] [facility] OTHER treadalong OTHER treadalong OTHER treadalong OTHER treadalong OTHER [employer] OTHER [facility] [employer] OTHER [employer] OTHER [employer] OTHER [employer] OTHER treadalong OTHER Member Subscriber Plan / Payer (Ef fective 2023-Present) Name:Ruby Stack Relation to Subscriber:Self Name:Ruby Stack Payer ID:Not on file Type:Not on file Address: [place] [phone] [employer] [place] [employer] OTHER [employer]along OTHER treadalong OTHER treadalong OTHER treadalong OTHER treadalong OTHER treadalong OTHER Member Subscriber Plan / Payer ( fective 2023-Present) Name:Ruby Stack Relation to Subscriber:Self Name:Ruby Stack Payer ID:Not on file Type:Not on file Address: [place] [phone] [employer] OTHER Member Subscriber Plan / Payer ( fective 2023-Present) Name:Ruby Stack Relation to Subscriber:Self Name:Ruby Stack Payer ID:Not on file Type:Not on file Address: [address] [employer] OTHER [employer] OTHER Member Subscriber Plan / Payer ( fective 2023-Present) Name:Ruby Stack Pattie Relation to Subscriber:Self Name:Ruby Stack Payer ID:Not on file Type:Not on file Address: [place] [phone] [employer] [facility] OTHER [employer] [place] [employer] [facility] OTHER treadalong OTHER treadalong OTHER treadalong OTHER treadalong OTHER [employer] OTHER Member Subscriber Plan / Payer ( fective 2023-Present) Name:Ruby Stack Relation to Subscriber:Self Name:Ruby Stack Payer ID:Not on file Type:Not on file Address: [place] [phone] [employer] OTHER [employer] OTHER treadalong OTHER [employer] [facility] OTHER [employer] [place] [employer] [facility] OTHER treadalong OTHER [employer]along OTHER treadalong OTHER treadalong OTHER [employer] OTHER Member Subscriber Plan / Payer (Ef fective 2023-Present) Name:Ruby Stack Relation to Subscriber:Self Name:Ruby Stack Payer ID:Not on file Type:Not on file Address: [place] [phone] [employer] OTHER [employer] OTHER [employer] [place] [employer] [facility] OTHER [employer] [facility] OTHER [address] [place] [phone] [facility] [employer] [facility] OTHER treadalong OTHER treadalong OTHER treadalong OTHER treadalong OTHER [employer] OTHER [employer] BL[employer] OTHER [place] [place] OTHER treadalong OTHER [employer] [facility] OTHER treadalong OTHER treadalong OTHER treadalong OTHER treadalong OTHER [employer] OTHER [employer] OTHER [employer] OTHER treadalong OTHER [employer] [facility] OTHER treadalong OTHER treadalong OTHER treadalong OTHER treadalong OTHER treadalong OTHER [address] [place] [place] [id number] [employer] [place] [employer] [facility] OTHER [employer] OTHER [employer] OTHER [employer]UE CROSS [employer] OTHER treadalong OTHER treadalong OTHER treadalong OTHER treadalong OTHER treadalong OTHER treadalong OTHER [employer] SH[employer] OTHER [employer] OTHER [employer] OTHER treadalong OTHER [employer] [place] [employer] OTHER treadalong OTHER treadalong OTHER treadalong OTHER treadalong OTHER [employer] [place] [employer] [facility] OTHER [address] [place] [id number] [facility] [employer] [facility] OTHER treadalong OTHER treadalong OTHER [employer] OTHER [employer] OTHER [employer] OTHER [employer]UE [employer] OTHER treadalong OTHER treadalong OTHER treadalong OTHER [employer] [facility] OTHER OTHER treadalong OTHER treadalong OTHER treadalong OTHER [employer] OTHER [employer] OTHER [employer] OTHER treadalong OTHER treadalong OTHER treadalong OTHER OTHER treadalong OTHER treadalong OTHER treadalong OTHER BLUE [employer] OTHER BLUE [employer] SH[employer] OTHER BLUE CROSS BL[employer] SH[employer] OTHER treadalong OTHER treadalong OTHER [facility] OTHER OTHER OTHER treadalong OTHER treadalong OTHER treadalong OTHER [employer] OTHER [employer] OTHER [employer] OTHER Member Subscriber Plan / Payer (Ef fective 2023-Present) Name:Ruby Stack Relation to Subscriber:Self Name:Loyd FranksSnehalRubyjennifer Blankenship Payer ID:Not on file Type:Not on file Address: [address] treadalong OTHER treadalong OTHER [employer] OTHER OTHER [facility] [employer] [facility] OTHER [facility] OTHER Care Teams Compressor Station Chief Engineer Relationship Specialty Start Date End Date Millicent Chapa MD [address] [place] [address] [phone] PCP - General Internal Medicine 09/02/21
--- OUTSIDE RECORDS SUMMARY | 2025-03-05 19:51 | XMS_ITS | Encounter Summary ---
Author Organization [facility] Address [address] [place] [address] Phone Care Team Providers Care Linoleum Floor Layer Name Role Phone Millicent Chapa MD Primary Care Pr ovider Encounter Details Date Type Department Care Team (Late st Contact Info) Description 02/02/2025 Orders Only [facility] Department of Orthopaedic Surgery, Foot & Ankle Service [address], [address] [place] [address] Isidro Vergara MD [address] [place] [phone] [email or web address] Social History Tobacco Use Types Packs/Day Years [...] high school, GED, job training, learning the Belarusian language, technical skills, or developing parenting skills)? [...] Description 06/05/2025 11:30 AM EST Office Visit [facility] at [facility] [address], [address] [place] [address] Ashwin Tate MD [address] [place] [address] [place] [phone] [email or web address] documented as of this encounter Visit Diagnoses Not on filedocumented in this encounter Care Teams Linoleum Floor Layer Relationship Specialty Start Date End Date Millicent Chapa MD [address] [place] [phone] PCP - General Internal Medicine 05/18/24 documented as of this encounter Additional Source Comments The information contained in this document represents components of the legal health record. It is not the complete legal health record.[facility]
--- OUTSIDE RECORDS SUMMARY | 2025-03-05 19:51 | XMS_ITS | Encounter Summary ---
Author Organization [facility] Address [address] [place] [address] Phone Care Team Providers Care Caustic Pump Operator Name Role Phone Millicent Chapa MD Primary Care Pr ovider Encounter Details Date Type Department Care Team (Late st Contact Info) Description 02/28/2025 Orders Only [facility] [place] [address] [facility], 7th [address], [address] [place], [place] [phone] Cristy Madrigal [address] [phone] [email or web address] Common peroneal neuropathy, left (Primary Dx) Social History Tobacco Use Types [...] high school, GED, job training, learning the Filipino language, technical skills, or developing parenting skills)? [...] 06/05/2025 11:30 AM EST Office Visit [facility] [place] [facility] [address], [address] [place] [address] Ashwin Tate MD [address] [place] [phone] [email or web address] Scheduled Orders Name Type Priority Associated Diagnoses Orde r Schedule US Lower Extremity Non-Vascular (Left) Imaging Routine Common peroneal neuropathy, left Expected: 03/01/2025, Expires: 05/31/2025 documented as of this encounter Visit Diagnoses Diagnosis Common peroneal neuropathy, left- Primary documented in this encounter Care Teams Caustic Pump Operator Relationship Specialty Start Date End Date Millicent Chapa MD [address] [place] [phone] PCP - General Internal Medicine 05/18/24 documented as of this encounter Additional Source Comments The information contained in this document represents components of the legal health record. It is not the complete legal health record.[facility]
--- OUTSIDE RECORDS SUMMARY | 2025-03-05 19:51 | XMS_ITS | Clinical Summary ---
Author Organization [facility] Address [address] [place] [phone] Phone Care Team Providers Care Suction Plate Roller Hand Name Role Phone Millicent Chapa MD Primary Care Pr ovider Allergies Active Allergy Reactions Criticality Noted Date Comments Bee Venom Protein (Honey Bee) Swelling,Wheezing 04/11/2012 Benztropine Other (See Comments) 05/30/2013 BLURRED VISION, BRADYCARDIA Bupivacaine Hcl Other (See Comments) High 05/30/2013 BILATERAL MOTOR/SENSORY LOSS LOWER EXTREMITIES S/P EPIDURAL Ciprofloxacin Unknown 02/24/2025 Gluten Other (See Comments) 05/30/2013 MALABSORPTION. CELIAC's DISEASE Iodinated Contrast Media Other (See Comments) 05/30/2013 THROAT NUMBNESS Methenamine Hepatitis Medium 08/31/2009 Drug Induced Hepatitis Morphine Itching 11/09/2024 Hydromorphone is tolerable Itching is known side effect of all opioids Nitrofurantoin Other (See Comments),Hepatiti s Medium 08/30/2009 Lupus-like rxn Prochlorperazine Dystonia High 08/30/2009 Shellfish Derived Other (See Comments) 05/30/2013 SWELLING,HIVES,SOB Silver Unknown 05/30/2013 Sulfa (Sulfonamide Antibiotics) Rash 08/30/2009 Trazodone Rash Low 08/30/2009 Medications LORazepam (ATIVAN) 0.5 MG tablet Take [...] pain (specific location in comments). 12 tablet 08/14/19 26 Active Active Problems Problem Noted Date Diagnosed Date Left knee pain 02/24/2025 Shoulder pain 02/05/2014 Overview (07/21/2014): Shoulder pain Rotator cuff syndrome 06/15/2013 Overview (07/21/2014): Rotator cuff syndrome Encounters Date Type Department Care Team Description 03/01/2025 2:30 PM EDT Telemedicine - audio only [facility] Neurosurgery at [facility] [address], [address] [place] [address] Ashwin Tate MD Arrived 02/28/2025 12:31 PM EDT - 02/28/2025 11:59 PM EDT Hospital Encounter [facility], Ultrasound [address] [place] [address] Ashwin Tate MD Discharge Disposition: Home or Self Care 02/28/2025 Orders Only [facility] Neurosurgery [address], 7th [address], [address] [place] [address] Cristy Madirgal [place] Common peroneal neuropathy, left (Primary Dx) 02/27/2025 3:00 PM EDT Office Visit [facility] Neurosurgery at [facility] [address], [address] [place] [address] Ashwin Tate MD Disorder of sural nerve (Primary Dx); Common peroneal neuropathy, left 02/27/2025 7:39 AM EDT - 02/27/2025 11:59 PM EDT Hospital Encounter [facility] Center for Pain Medicine [address], [address] [place] [address] Jorge Benjamin MD Discharge Disposition: Home or Self Care 02/26/2025 Telephone [facility] Neurosurgery at [facility] [address], [address] [place] [address] Ashwin Tate MD 02/24/2025 4:17 PM EDT - 02/26/2025 9:40 PM EDT Hospital Encounter [facility] Emergency Dept [address] [place] [phone] Isak Grace MD Coffey, MD Pierre Perry Thomas F, MD Biddinger, Paul D, MD Hayden, MD Kenji Adam, Ethan Yeager MD Discharge Disposition: Home or Self Care 02/24/2025 Procedure Pass [facility] CT, Justin 2 [address], 2nd [address], [address] [place] [address] 02/12/2025 10:45 AM EDT Telemedicine [facility] Neurosurgery at [facility] [address], [address] [place] [address] Ashwin Tate MD Disorder of sural nerve (Primary Dx) 02/02/2025 Telephone [facility] Department of Orthopaedic Surgery, Foot & Ankle Service [address], [address] [place] [address] Order Mode, Tire Repairer 02/02/2025 Orders Only [facility] Department of Orthopaedic Surgery, Foot & Ankle Service [address], [address] [place] [address] Isidro Vergara MD 01/03/2025 2:53 PM EDT - 01/03/2025 11:59 PM EDT Hospital Encounter [facility] PLASTER ROOM [address] [place] [address] Isidro Vergara MD Discharge Disposition: Home or Self Care 01/03/2025 11:30 AM EDT Office Visit [facility] Department of Orthopaedic Surgery, Foot & Ankle Service [address], 3rd [address], [address] [place] [address] Isidro Vergara MD Neuritis (Primary Dx); Peroneal tendonitis of left lower leg 01/03/2025 10:55 AM EDT - 01/03/2025 2:52 PM EDT Hospital Encounter [facility] Imaging - Xray, [place] [address], 3rd [place] [address] Isidro Vergara MD Discharge Disposition: Home or Self Care 12/29/2024 Orders Only [facility] Department of Orthopaedic Surgery, Foot & Ankle Service [address], 3rd [address], [address] [place] [address] Christopher Jaimes [place] Pain (Primary Dx) 12/26/2024 10:30 AM EDT Office Visit [facility] Neurosurgery at [facility] [address], [address] [place] [address] Ashwin Tate MD Common peroneal neuropathy, left (Primary Dx) 12/14/2024 Telephone [facility] Pain Management [address] [place] [address] Aurora Barrios from Last 3 Months Family History Medical [...] high school, GED, job training, learning the Welsh language, technical skills, or developing parenting skills)? [...] Sign Reading Time Taken Comments Blood Pressure 112/76 02/26/2025 7:53 PM EDT Pulse 108 02/26/2025 7:53 PM EDT Temperature 36.8 C (98.3 F) 02/26/2025 7:53 PM EDT Respiratory Rate 16 02/26/2025 7:53 PM EDT Oxygen Saturation 96% 02/26/2025 7:53 PM EDT Inhaled Oxygen Concentration - - Weight 45.4 kg (100 lb) 11/09/2024 1:18 PM EDT Height 154.9 cm (5' 1 ) 11/09/2024 1:18 PM EDT Body Mass Index 18.89 11/09/2024 1:18 PM EDT Plan of Treatment Upcoming Encounters Date Type Department Care Team (Late st Contact Info) Description 06/05/2025 11:30 AM EST Office Visit [facility] Neurosurgery at [facility] [address], [address] [place] [address] Ashwin Tate MD [address] [place] [phone] [email or web address] Health Maintenance Due Date Last Done Comments [...] SCREENING (On ce After 26 Yrs) Completed 02/24/2025 HEPATITIS A VACCINES Aged Out No long [...] 3:02 PM EDT Disorder of sural nerve CT KNEE WITHOUT CONTRAST (LEFT) Routine 02/24/2025 10:39 PM EDT XR KNEE 4 OR MORE VIEWS (LEFT) Routine 02/24/2025 6:53 PM EDT XR ANKLE 3 OR MORE VIEWS (LEFT) Routine 01/03/2025 11:14 AM EDT Pain HISTORICAL LAB Routine 10/11/2013 5:00 PM EDT from Last 3 Months or Most Recently Relevant to Health Maintenance Results * US LOWER EXTREMITY NON-VASCULAR LIMITED [...] Tate MD IMG US EXTREMITY Final Result * CT KNEE WITHOUT CONTRAST (LEFT) (02/24/2025 10:39 PM EDT) Anatomical Region Laterality Modality Knee Left Computed Tomogra phy 02/24/2025 11:1 9 PM EDT Impressions 02/25/2025 12:00 AM EDT Mild cortical deformity of the lateral tibial plateau, 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 ATTESTATION: Kristopher Vivar as teaching physician, have reviewed the images for this case and if necessary edited the report originally created by Reece Maravilla. Narrative 02/25/2025 12:[address] KNEE WITHOUT CONTRAST (LEFT) Referring clinician's provided indication for this examination in [facility]: * Fracture, knee TECHNIQUE: Multidetector-row CT of the knee, without intravenous contrast using dose-modulation techniques. Images were reconstructed in the axial, coronal, and sagittal planes. COMPARISON: XR KNEE 4 OR MORE VIEWS (LEFT) 18:49:26.000 FINDINGS: Bones and Joints: There is cortical irregularity of the lateral tibial plateau seen on same day radiograph. No displaced fracture. Osseous demineralization. Soft Tissues: No significant abnormality. Procedure Note Kristopher Chauhan MD - 02/25/2025 CT KNEE WITHOUT CONTRAST (LEFT) Referring clinician's provided indication for this examination in [facility]: *Fracture, knee TECHNIQUE: Multidetector-row CT of the knee, without intravenous contrastusing dose-modulation techniques. Images were reconstructed in the axial,coronal, and sagittal planes. COMPARISON: XR KNEE 4 OR MORE VIEWS (LEFT) 18:49:26.000 FINDINGS: Bones and Joints: There is cortical irregularity of the lateral tibialplateau seen on same day radiograph. No displaced fracture. Osseousdemineralization. Soft Tissues: No significant abnormality. 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 ATTESTATION: Kristopher Vivar as teaching physician, have reviewed theimages for this case and if necessary edited the report originally createdby Reece Maravilla. us Elias Marx PA-C IMVaishnavi CT EXTREMITY Final Result * XR KNEE 4 OR MORE VIEWS (LEFT) (02/24/2025 6:53 PM EDT) Anatomical Region Laterality Modality Knee Left Computed Radiogr aphy 02/24/2025 7:18 PM EDT Impressions 02/24/2025 7:22 PM EDT Mild cortical irregularity in the lateral tibial plateau, which could represent an age indeterminate nondisplaced fracture. Narrative 02/24/2025 7:22 PM EDT XR KNEE 4 OR MORE VIEWS (LEFT) Referring clinician's provided indication for this examination in Epic: Pain COMPARISON: None FINDINGS: Left Knee: Generalized bone demineralization. Mild cortical irregularity in the lateral tibial plateau. Normal alignment. Mild degenerative changes. No effusion. Procedure Note Kristopher Chauhan MD - 02/24/2025 XR KNEE 4 OR MORE VIEWS (LEFT) Referring clinician's provided indication for this examination in Epic:Pain COMPARISON: None FINDINGS: Left Knee: Generalized bone demineralization. Mild cortical irregularityin the lateral tibial plateau. Normal alignment. Mild degenerativechanges. No effusion. IMPRESSION: Mild cortical irregularity in the lateral tibial plateau, which couldrepresent an age indeterminate nondisplaced fracture. us Elias Marx PA-C IMG XR LOWER EXTREMITY Final Result * XR ANKLE 3 OR MORE VIEWS [...] Epic:Pain COMPARISON: MRI ANKLE WITHOUT CONTRAST (LEFT) 2024- FINDINGS: Diffuse osseous demineralization. Diffuse soft tissue swelling. Nodefinite fracture. No substantial degenerative changes. IMPRESSION: Diffuse osseous demineralization and diffuse soft tissue swelling. us Isidro Vergara MD IMG XR LOWER EXTREMITY Isabella l Result * Historical Lab (10/11/2013 5:00 PM EDT) TOTAL 25 ([place]) VITAMIN D 23.7 20 - 80 NG/ML [facility] HBSAG NEGATIVE NEGATIVE [facility] HBc IGM AB NEGATIVE NEGATIVE [facility] ANTI - HCV NEGATIVE NEGATIVE [facility] 10/11/2013 5:00 PM EDT 10/11/2013 5:27 PM EDT us Sarthak Fritz MD LAB BLOOD ORDERABLES Final Res ult Performing Organization Address City/State/[facility] Co de Phone Number [address] [phone] from Last 3 Months or Most Recently Relevant to Health Maintenance Insurance MEDICARE PART A & B [place] [employer] [employer] SUPPLEMENT MEDICARE PART A & B [employer] MED[employer] SUPPLEMENT MEDICARE PART A & B [employer] MED[employer] SUPPLEMENT MEDICARE PART A & B [employer] SUPPLEMENT MEDICARE PART A & B [employer] SUPPLEMENT MEDICARE PART A & B [employer] MEDEX SUPPLEMENT Care Teams Suction Plate Roller Hand Relationship Specialty Start Date End Date Millicent Chapa MD [address] [place] [phone] PCP - General Internal Medicine 05/18/24 Additional Source Comments The information contained in this document represents components of the legal health record. It is not the complete legal health record.[facility]
[2025-03-05 20:02] LABS: Hematocrit 35.1 % (37.0-47.0); Hemoglobin 11.4 g/dl (12.0-16.0); Imm Gran Abs Auto 0.03 X10*3/uL (0.00-0.03); Imm Gran Pct Auto 0.4 % (0.0-0.4); Lymphocytes Absolute Auto 1.6 X10*3/uL (1.2-4.9); MANUAL DIFF FLAG NO; Mean Corpuscular HGB Conc 32.5 g/dl (31.0-35.0); Mean Corpuscular Hemoglobin 29.5 pg (27.0-33.0); Mean Corpuscular Volume 90.7 fL (80.0-98.0); NRBC Abs Auto 0.000 X10*3/uL (0.0-0.012); NRBC Pct Auto 0.0 /100WBC (0.0-0.2); Platelet Count 218 X10*3/uL (160-400); Red Blood Count 3.87 X10*6/uL (4.20-5.50); White Blood Count 7.0 X10*3/uL (4.8-10.8)
[2025-03-05 20:09] LABS: INTERNATIONAL NORM RATIO 0.9 (0.9-1.1); Prothrombin Time 10.0 SEC (10.9-12.4)
[2025-03-05 20:13] LABS: Partial Thromboplastin Time 19.4 SEC (26.7-34.1)
[2025-03-05 20:18] LABS: Alanine Aminotransferase 14 U/L (0-31); Albumin Level 4.2 g/dL (3.5-5.0); Alkaline Phosphatase 45 U/L (39-117); Anion Gap 11 (12-20); Aspartate Amino Transferase 18 U/L (5-31); Blood Urea Nitrogen 28 mg/dL (9-16); Calcium 9.3 mg/dL (8.4-10.2); Carbon Dioxide 29 mmol/L (22-29); Chloride 107 mmol/L (96-108); Creatinine Clr Calc Pharmacy 59.0; Estimated Glomerular Filt Rate > 60; Potassium 4.0 mmol/L (3.3-5.1); Sodium 143 mmol/L (135-145); Total Protein 6.6 g/dL (6.5-8.0)
[2025-03-05 20:25] LABS: NT Pro B Type Natriuretic Pept 81.1 pg/mL (<300)
[2025-03-05 20:31] LABS: Troponin-I High Sensitivity < 2.7 ng/L (<3.5-17.0)
[2025-03-05 22:34] LABS: D Dimer High Sensitivity 195 NG/ML
[2025-03-05 22:51] VITALS: BP 129/66; PULSE 91; RESP 14; O2SAT 97
[2025-03-06 00:51] VITALS: BP 99/60; PULSE 78; RESP 16; TEMP 36.6; O2SAT 95
[2025-03-06 00:52] VITALS: BP 99/60; PULSE 78; RESP 16; TEMP 36.6; O2SAT 95
== END 2025-03-06 01:15 | disposition home or self-care (01) ==
PROVIDERS: Physician Assistant; Emergency Provider Emergency Medicine; PCP Physician Assistant
DX: R07.9 Chest pain, unspecified (principal); G89.29 Other chronic pain; M79.606 Pain in leg, unspecified; R06.02 Shortness of breath; I73.00 Raynaud's syndrome without gangrene; Z79.899 Other long term (current) drug therapy
CPT/HCPCS: 36415; 71045; 80053; 83880; 84484; 85025; 85379; 85610; 85730; 93005; 96374; 96375; 99284; J1171; J1200; J1630

== ENCOUNTER → 2025-03-05 19:20 | Outpatient (BNV) | payer MEDICARE, SELFPAY | PROVIDERS: Emergency Provider Emergency Medicine; PCP Physician Assistant; Visit Provider Internal Medicine Cardiovascular Disease | DX: I44.7 Left bundle-branch block, unspecified (principal) | CPT/HCPCS: 93010 ==

== ENCOUNTER → 2025-03-05 19:29 | Outpatient (BNV) | payer MEDICARE, SELFPAY | PROVIDERS: PCP Physician Assistant; Visit Provider Radiology Diagnostic Radiology | DX: R07.89 Other chest pain (principal) | CPT/HCPCS: 71045 ==